=== PATIENT | female | born 1935 | race American Indian/Alaskan Native ===

== ENCOUNTER 2016-09-24 00:19 | Observation (INO) | payer MEDICARE, OTHER ==
[2016-09-24 00:19] VITALS: BMI 21.6
--- NOTE | 2016-09-24 00:31 | C.PDOC ---
History Of Present Illness 81 year old female with a history of COPD, presents to the ED with complaints of progressively worsening SOB since yesterday. Patient is speaking in 4-5 words sentences and denies fever, chills, chest pain, palpitations, or any other complaints at this time. Time Seen by Provider: 09/24/16 00:31 Chief Complaint (Nursing): Shortness Of Breath History Per: Patient History/Exam Limitations: no limitations Onset/Duration Of Symptoms: Days Current Symptoms Are (Timing): Still Present Severity: Mild Associated Symptoms: denies: Fever, Chills, Chest Pain, Productive Cough Past Medical History Reviewed: Historical Data, Nursing Documentation, Vital Signs Vital Signs: Last Vital Signs Temp 97.5 F L 09/24/16 00:25 Pulse 111 H 09/24/16 00:25 Resp 24 09/24/16 00:54 BP 143/87 09/24/16 00:25 Pulse Ox 92 L 09/24/16 00:58 - Medical History PMH: COPD - [facility] Procedures ANGIOPLASTY OF OTHER NON-CORONARY VESSEL(S) (01/22/15) INSEJ [id number] PERIPHERAL NON-CORONARY VES STENT(S) (01/22/15) INSERTION OF TWO VASCULAR STENTS (01/22/15) PROCEDURE ON TWO VESSELS (01/22/15) RADICAL EXCIS SKIN LES (10/29/12) Family History: States: Unknown Family Hx - Social History Hx Alcohol Use: Yes (RARE) Hx Substance Use: No - Immunization History Hx Tetanus Toxoid Vaccination: Yes Hx Influenza Vaccination: Yes Hx Pneumococcal Vaccination: Yes Review Of Systems Constitutional: Negative for: Fever, Chills, Sweats Cardiovascular: Negative for: Chest Pain, Palpitations Respiratory: Positive for: Shortness of Breath. Negative for: Cough Gastrointestinal: Negative for: Nausea, Vomiting, Diarrhea Genitourinary: Negative for: Dysuria, Frequency Musculoskeletal: Negative for: Neck Pain, Back Pain Skin: Negative for: Rash, Lesions Neurological: Negative for: Weakness, Numbness Psych: Positive for: Anxiety Physical Exam - Physical Exam Appears: Non-toxic Skin: Warm, Dry Head: Atraumatic, Normacephalic Eye(s): bilateral: Normal Inspection Oral Mucosa: Moist Neck: Supple Chest: Symmetrical, No Deformity Cardiovascular: Rhythm Regular Respiratory: Accessory Muscle Use, No Rales, Rhonchi (+Scattered rhonchi), Wheezing Gastrointestinal/Abdominal: Soft, No Tenderness, No Distention Back: Normal Inspection Extremity: Normal ROM Extremity: Bilateral: Atraumatic, Normal Color And Temperature Neurological/Psych: Oriented x3, Normal Speech, Normal Cognition Gait: Unable To Assess ED Course And Treatment - Laboratory Results Result Diagrams: 09/24/16 00:53 09/24/16 00:53 ECG: Interpreted By Me, Viewed By Me ECG Rhythm: Sinus Rhythm (104), R BBB, Nonspecific Changes (lahb) O2 Sat by Pulse Oximetry: 92 Pulse Ox Interpretation: Normal - Radiology CXR: Interpreted by Me, Viewed By Me Progress Note: CXR, EKG, Blood work, and Urinalysis ordered and reviewed. Patient treated with DuoNeb and Solu-Medrol. Disposition Discussed With : Lex Patel Comment: accepted the pt on his service and took over the care at 2:07 AM Doctor Will See Patient In The: Hospital Counseled Patient/Family Regarding: Studies Performed, Diagnosis - Disposition Disposition: HOSPITALIZED Disposition Time: 00:31 Condition: FAIR - POA Present On Arrival: None - Clinical Impression Clinical Impression: Dyspnea, COPD exacerbation - Scribe Statement The provider has reviewed the documentation as recorded by the Scribe Carmine Duvall. Provider Attestation: All medical record entries made by the Scribe were at my direction and personally dictated by me. I have reviewed the chart and agree that the record accurately reflects my personal performance of the history, physical exam, medical decision making, and the department course for this patient. I have also personally directed, reviewed, and agree with the discharge instructions and disposition.
[2016-09-24 00:58] LABS: DRAW SITE RB
[2016-09-24 01:00] LABS: INR 1.2
[2016-09-24 01:01] LABS: BASO # 0.1 K/uL (0.0-0.2); BASO % 1.2 % (0.0-2.0); EOS # 0.5 K/uL (0.0-0.7); EOS % 7.1 % (0.0-4.0); HEMATOCRIT 32.5 % (34.0-47.0); LYMPH # 0.5 K/uL (1.0-4.3); LYMPH % 8.5 % (20.0-40.0); MEAN CORPUSCULAR HEMOGLOBIN 27.7 pg (27.0-31.0); MEAN CORPUSCULAR HGB CONC 32.6 g/dL (33.0-37.0); MEAN PLATELET VOLUME 7.6 fL (7.2-11.7); MONO # 0.9 K/uL (0.0-0.8); MONO % 14.5 % (0.0-10.0); PLATELET COUNT 468 K/uL (130-400); WHITE BLOOD COUNT 6.3 K/uL (4.8-10.8)
[2016-09-24 01:14] LABS: ALB/GLOB RATIO 1.3 (1.0-2.1); ALKALINE PHOSPHATASE 71 U/L (38-126); ALT/SGPT 19 U/L (9-52); AST/SGOT 24 U/L (14-36); BILIRUBIN,TOTAL 0.7 mg/dL (0.2-1.3); BLOOD UREA NITROGEN 11 mg/dL (7-17); CALCIUM 8.8 mg/dl (8.6-10.4); CARBON DIOXIDE 26 mmol/L (22-30); CHLORIDE 101 mmol/L (98-107); GFR AFRICAN-AMERICAN > 60; GLUCOSE,RANDOM 82 mg/dL (65-105); POTASSIUM 3.5 mmol/L (3.6-5.2); SODIUM 137 mmol/L (132-148); TOTAL PROTEIN 7.1 g/dL (6.3-8.3)
[2016-09-24 01:21] LABS: URINE BILIRUBIN NEGATIVE (NEGATIVE); URINE BLOOD NEGATIVE (NEGATIVE); URINE COLOR YELLOW (YELLOW); URINE GLUCOSE (UA) Normal (Normal); URINE KETONE NEGATIVE (NEGATIVE)
[2016-09-24 01:22] LABS: RBC URINE 1 /hpf (0-3); URINE LEUKOCYTE ESTERASE TRACE Leu/uL (Negative); URINE PROTEIN NEGATIVE (NEGATIVE); URINE UROBILINOGEN Normal mg/dL (0.2-1.0); WBC URINE 11 /hpf (0-5)
[2016-09-24] MEDS: Albuterol-Ipratrop 3 mg / 0.5 (3 ml) UD IH SCH ×3 (01:30→02:00)
[2016-09-24 01:31] LABS: BASOPHIL 1 % (0-2); EOSINOPHIL 5 % (0-4); NEUTROPHIL 71 % (50-75); TOTAL CELLS COUNTED 100
[2016-09-24] MEDS ORDERED: Albuterol-Ipratrop 3 mg / 0.5 (3 ml) UD ONE ×3 (01:31)
[2016-09-24] MEDS ORDERED: Potassium Chloride 20 mEq ER Tab PO ONE ×3 (02:16→10:00)
[2016-09-24 02:36] VITALS: RESP 20
[2016-09-24] MEDS ORDERED: ATROPINE SULFATE PO PRN (02:44)
[2016-09-24] MEDS ORDERED: DIPHENOXYLATE HCL PO PRN (02:44)
[2016-09-24] MEDS ORDERED: [UNRECOGNIZED DRUG - OTHER] PO PRN (02:44)
[2016-09-24] MEDS ORDERED: Home Med 1 UNIT (Meloxicam [Meloxicam] 7.5 MG) PO PRN (02:44)
[2016-09-24] MEDS ORDERED: Influenza Virus Vaccine 45 mcg/0.5 ml Syr IM ONE (04:19)
[2016-09-24] MEDS ORDERED: Pneumococcal 23-Valent Vaccine IM ONE (04:19)
[2016-09-24] MEDS: Albuterol-Ipratrop 3 mg / 0.5 (3 ml) UD INH SCH ×3 (08:33→16:12)
[2016-09-24 09:10] VITALS: BP 107/68; PULSE 96; TEMP 98.1; O2SAT 98
--- NOTE | 2016-09-24 09:57 | RAD ---
PROCEDURE: CHEST RADIOGRAPH, 1 VIEW HISTORY: SOB COMPARISON: 09/25/2015. FINDINGS: LUNGS: Chronic interstitial lung markings. No focal infiltrate or effusion. Small nodular density seen at the lateral aspect of the left midlung zone may represent nodule and or granuloma. This was noted on the prior study. PLEURA: No pneumothorax or pleural fluid seen. CARDIOVASCULAR: Tortuous ectatic aorta. OSSEOUS STRUCTURES: No significant abnormalities. VISUALIZED UPPER ABDOMEN: Normal. OTHER FINDINGS: None. IMPRESSION: Chronic interstitial lung markings. No focal infiltrate or effusion. Small nodular density seen at the lateral aspect of the left midlung zone may represent nodule and or granuloma. This was noted on the prior study.
[2016-09-24] MEDS ORDERED: Cilostazol 100 mg Tab UD PO SCH (10:00)
[2016-09-24] MEDS ORDERED: Enoxaparin 40 mg Syringe SC SCH (10:00)
[2016-09-24] MEDS ORDERED: guaiFENesin 600 mg ER Tab PO SCH (10:00)
[2016-09-24] MEDS ORDERED: Levothyroxine 75 MCG TAB PO SCH (10:00)
[2016-09-24] MEDS ORDERED: MethylPREDNISolone 40 mg Vial IVP SCH (10:00)
[2016-09-24] MEDS ORDERED: MIRTAZAPINE 15 MG PO SCH (10:00)
[2016-09-24] MEDS ORDERED: Atropine-Diphenoxylate 0.025-2.5 mg Tab PO PRN (12:13)
[2016-09-24] MEDS ORDERED: Naproxen 275 mg Tab PO PRN (13:50)
[2016-09-25] MEDS ORDERED: Levothyroxine 75 MCG TAB PO SCH (06:30)
--- NOTE | 2016-09-25 12:58 | CP.PCM.HP ---
History of Present Illness - History of Present Illness History of Present Illness: Priscilla complain: acute cough & shortness of breath HPI: 81 year old AA female well known to me with a history of COPD,HTN, Hypothyroidism, gastritis presents to the ED with complaints of progressively worsening SOB associated with cough, congestion and wheezing thick sputum since yesterday. Patient is speaking in 4-5 words sentences and denies fever, chills, chest pain, palpitations, or any other complaints at this time.pt was given treatment including nebulizer, oxygen, and she is improving Present on Admission - Present on Admission Any Indicators Present on Admission: No Review of Systems - Review of Systems Systems not reviewed;Unavailable: Acuity of Condition - Constitutional Constitutional: Fatigue, Lethargy. absent: As Per HPI, Anorexia, Chills, Daytime Sleepiness, Excessive Sweating, Fever, Frequent Falls, Headache, Increased Appetite, Malaise, Night Sweats, Snoring, Sleep Apnea, Weight Gain, Weight Loss, Weakness, Other - EENT Eyes: absent: As Per HPI, Blind Spots, Blurred Vision, Change in Vision, Decreased Night Vision, Diplopia, Discharge, Dry Eye, Exophthalmos, Floaters, Irritation, Itchy Eyes, Loss of Peripheral Vision, Pain, Photophobia, Requires Corrective Lenses, Sees Flashes, Spots in Vision, Tunnel Vision, Other Visual Disturbances, Loss of Vision, Other Nose/Mouth/Throat: Nasal Congestion. absent: As Per HPI, Epistaxis, Nasal Discharge, Nasal Obstruction, Nasal Trauma, Nose Pain, Post Nasal Drip, Sinus Pain, Sinus Pressure, Bleeding Gums, Change in Voice, Dental Pain, Dry Mouth, Dysphagia, Halitosis, Hoarsness, Lip Swelling, Mouth Lesions, Mouth Pain, Odynophagia, Sore Throat, Throat Swelling, Tongue Swelling, Facial Pain, Neck Pain, Neck Mass, Other - Cardiovascular Cardiovascular: absent: As Per HPI, Acrocyanosis, Chest Pain, Chest Pain at Rest , Chest Pain with Activity, Claudication, Diaphoresis, Dyspnea, Dyspnea on Exertion, Edema, Irregular Heart Rhythm, Pain Radiating to Arm/Neck/Jaw, Leg Edema, Leg Ulcers, Lightheadedness, Orthopnea, Palpitations, Paroxysmal Nocturnal Dyspnea, Pedal Edema, Radiating Pain, Rapid Heart Rate, Slow Heart Rate, Syncope, Other - Respiratory Respiratory: Cough, Dyspnea, Dyspnea on Exertion, Chest Congestion, Excessive Mucous Production, Change in Mucous Color, Pain with Coughing - Gastrointestinal Gastrointestinal: absent: As Per HPI, Abdominal Pain, Belching, Bloating, Change in Bowel Habits, Change in Stool Character, Coffee Ground Emesis, Constipation, Cramping, Diarrhea, Dyspepsia, Dysphagia, Early Satiety, Excessive Flatus, Fecal Incontinence, Heartburn, Hematemesis, Hematochezia, Loose Stools, Melena, Nausea, Odynophagia, Temesmus, Vomiting, Other Past Patient History - Past Medical History & Family History Past Medical History?: Yes - Past Social History Smoking Status: Former Smoker - CARDIAC Hx Cardiac Disorders: No Hx Congestive Heart Failure: Yes Hx Hypertension: Yes Hx Pacemaker: No - PULMONARY Hx Respiratory Disorders: Yes Hx Chronic Obstructive Pulmonary Disease (COPD): Yes Hx Emphysema: Yes - NEUROLOGICAL Hx Neurological Disorder: No Hx Paralysis: No - HEENT Hx HEENT Problems: No - RENAL Hx Chronic Kidney Disease: No - ENDOCRINE/METABOLIC Hx Endocrine Disorders: Yes Hx Hypothyroidism: Yes - HEMATOLOGICAL/ONCOLOGICAL Hx Blood Disorders: No Hx Blood Transfusions: No - INTEGUMENTARY Hx Dermatological Problems: No - MUSCULOSKELETAL/RHEUMATOLOGICAL Hx Falls: No - GASTROINTESTINAL Hx Gastrointestinal Disorders: No - GENITOURINARY/GYNECOLOGICAL Hx Genitourinary Disorders: No - PSYCHIATRIC Hx Substance Use: No - SURGICAL HISTORY Hx Surgeries: No - ANESTHESIA Hx Anesthesia: No Hx Anesthesia Reactions: No Hx Malignant Hyperthermia: No Has any member of the family had a problem w/ anesthesia?: No Meds Home Medications: Home Medication List Medication Instructions Recorded Confirmed Type predniSONE [Prednisone] 30 mg PO DAILY #18 tab 09/24/16 Rx predniSONE [predniSONE Tab] 5 mg PO DAILY #3 tab 09/24/16 Rx Allergies/Adverse Reactions: Allergies Allergy/AdvReac Type Severity Reaction Status Date / Time No Known Allergies Allergy Verified 09/24/16 00:29 Physical Exam - Constitutional Appears: Well - Head Exam Head Exam: ATRAUMATIC, NORMAL INSPECTION, NORMOCEPHALIC - Eye Exam Eye Exam: EOMI, Normal appearance, PERRL Pupil Exam: NORMAL ACCOMODATION, PERRL - Respiratory Exam Respiratory Exam: Decreased Breath Sounds, Rhonchi, Wheezes - Cardiovascular Exam Cardiovascular Exam: REGULAR RHYTHM - GI/Abdominal Exam GI & Abdominal Exam: Normal Bowel Sounds, Soft. absent: Tenderness Results - Vital Signs Recent Vital Signs: Last Vital Signs Temp 98.1 F 09/24/16 08:36 Pulse 96 H 09/24/16 08:36 Resp 20 09/24/16 08:36 BP 107/68 09/24/16 08:36 Pulse Ox 98 09/24/16 08:36 - Labs Result Diagrams: 09/24/16 00:53 09/24/16 00:53 Assessment & Plan (1) Dyspnea Status: Acute (2) COPD exacerbation Status: Acute Comment: Pt improved in ER and she is for discharge with out pateint follow up on tapering doses of prednisone
--- NOTE | 2016-09-25 13:02 | CP.PCM.DIS ---
Provider - Provider Date of Admission: 09/24/16 02:06 Attending physician: Lex Patel MD Time Spent in preparation of Discharge (in minutes): 30 Diagnosis - Discharge Diagnosis (1) Dyspnea Status: Acute (2) COPD exacerbation Status: Acute Hospital Course - Lab Results Lab Results: Most Recent Lab Values WBC 6.3 K/uL (4.8-10.8) 09/24/16 00:53 RBC 3.82 Mil/uL (3.80-5.20) 09/24/16 00:53 Hgb 10.6 g/dL (11.0-16.0) L D 09/24/16 00:53 Hct 32.5 % (34.0-47.0) L 09/24/16 00:53 MCV 85.0 fL (81.0-99.0) D 09/24/16 00:53 MCH 27.7 pg (27.0-31.0) 09/24/16 00:53 MCHC 32.6 g/dL (33.0-37.0) L 09/24/16 00:53 RDW 17.0 % (11.5-14.5) H 09/24/16 00:53 Plt Count 468 K/uL (130-400) H D 09/24/16 00:53 MPV 7.6 fL (7.2-11.7) 09/24/16 00:53 Neut % (Auto) 68.7 % (50.0-75.0) 09/24/16 00:53 Lymph % (Auto) 8.5 % (20.0-40.0) L 09/24/16 00:53 [place] % (Auto) 14.5 % (0.0-10.0) H 09/24/16 00:53 Eos % (Auto) 7.1 % (0.0-4.0) H 09/24/16 00:53 Baso % (Auto) 1.2 % (0.0-2.0) 09/24/16 00:53 Neut # 4.3 K/uL (1.8-7.0) 09/24/16 00:53 Lymph # 0.5 K/uL (1.0-4.3) L 09/24/16 00:53 [place] # 0.9 K/uL (0.0-0.8) H 09/24/16 00:53 Eos # 0.5 K/uL (0.0-0.7) 09/24/16 00:53 Baso # 0.1 K/uL (0.0-0.2) 09/24/16 00:53 Neutrophils % (Manual) 71 % (50-75) 09/24/16 00:53 Lymphocytes % (Manual) 14 % (20-40) L 09/24/16 00:53 Monocytes % (Manual) 9 % (0-10) 09/24/16 00:53 Eosinophils % (Manual) 5 % (0-4) H 09/24/16 00:53 Basophils % (Manual) 1 % (0-2) 09/24/16 00:53 Platelet Estimate Slightly increased (NORMAL) H 09/24/16 00:53 PT 14.0 SECONDS (9.7-12.2) H 09/24/16 00:33 INR 1.2 09/24/16 00:33 APTT 40 SECONDS (21-34) H 09/24/16 00:33 Puncture Site Rb 09/24/16 00:50 pCO2 32 mm/Hg (35-45) L 09/24/16 00:50 pO2 89 mm/Hg (80-100) 09/24/16 00:50 HCO3 27.3 mmol/L (21-28) 09/24/16 00:50 ABG pH 7.51 (7.35-7.45) H 09/24/16 00:50 ABG Total CO2 26.5 mmol/L (22-28) 09/24/16 00:50 ABG O2 Saturation 99.4 % (95-98) H 09/24/16 00:50 ABG Base Excess 3.0 mmol/L (-2.0-3.0) 09/24/16 00:50 Jason Test Na 09/24/16 00:50 ABG Potassium 3.3 mmol/L (3.6-5.2) L 09/24/16 00:50 A-a O2 Difference 21.0 mm/Hg 09/24/16 00:50 Respiratory Index 0.2 09/24/16 00:50 Sodium 138.0 mmol/l (132-148) 09/24/16 00:50 Chloride 110.0 mmol/L (98-107) H 09/24/16 00:50 Glucose 87 mg/dl (65-105) 09/24/16 00:50 Lactate 0.7 mmol/L (0.7-2.1) 09/24/16 00:50 FiO2 21.0 % 09/24/16 00:50 Sodium 137 mmol/L (132-148) 09/24/16 00:53 Potassium 3.5 mmol/L (3.6-5.2) L 09/24/16 00:53 Chloride 101 mmol/L (98-107) 09/24/16 00:53 Carbon Dioxide 26 mmol/L (22-30) 09/24/16 00:53 Anion Gap 14 (10-20) 09/24/16 00:53 BUN 11 mg/dL (7-17) 09/24/16 00:53 Creatinine 0.7 MG/DL (0.7-1.2) 09/24/16 00:53 Est GFR ( Amer) > 60 09/24/16 00:53 Est GFR (Non-Af Amer) > 60 09/24/16 00:53 Random Glucose 82 mg/dL (65-105) 09/24/16 00:53 Calcium 8.8 mg/dl (8.6-10.4) 09/24/16 00:53 Total Bilirubin 0.7 mg/dL (0.2-1.3) 09/24/16 00:53 AST 24 U/L (14-36) 09/24/16 00:53 ALT 19 U/L (9-52) 09/24/16 00:53 Alkaline Phosphatase 71 U/L (38-126) 09/24/16 00:53 Troponin I 0.0140 ng/mL (0.00-0.120) 09/24/16 00:53 NT-Pro-B Natriuret Pep 137 pg/mL (0-900) 09/24/16 00:53 Total Protein 7.1 g/dL (6.3-8.3) 09/24/16 00:53 Albumin 4.0 g/dL (3.5-5.0) 09/24/16 00:53 Globulin 3.1 gm/dL (2.2-3.9) 09/24/16 00:53 Albumin/Globulin Ratio 1.3 (1.0-2.1) 09/24/16 00:53 Arterial Blood Potassium 3.3 mmol/L (3.6-5.2) L 09/24/16 00:50 Urine Color Yellow (YELLOW) 09/24/16 00:53 Urine Clarity Clear (Clear) 09/24/16 00:53 Urine pH 6.0 (5.0-8.0) 09/24/16 00:53 Ur Specific [place] 1.012 (1.003-1.030) 09/24/16 00:53 Urine Protein Negative mg/dL (NEGATIVE) 09/24/16 00:53 Urine Glucose (UA) Normal mg/dL (Normal) 09/24/16 00:53 Urine Ketones Negative mg/dL (NEGATIVE) 09/24/16 00:53 Urine Blood Negative (NEGATIVE) 09/24/16 00:53 Urine Nitrate Negative (NEGATIVE) 09/24/16 00:53 Urine Bilirubin Negative (NEGATIVE) 09/24/16 00:53 Urine Urobilinogen Normal mg/dL (0.2-1.0) 09/24/16 00:53 Ur Leukocyte Esterase Trace Ashley/uL (Negative) 09/24/16 00:53 Urine WBC (Auto) 11 /hpf (0-5) H 09/24/16 00:53 Urine RBC (Auto) 1 /hpf (0-3) 09/24/16 00:53 Ur Squamous Epith Cells 4 /hpf (0-5) 09/24/16 00:53 - Hospital Course Hospital Course: Pt was admitted with c/o sob, and cough due to COPD exacerbation, pt was treated and stablized and was discharged Discharge Exam - Head Exam Head Exam: ATRAUMATIC, NORMAL INSPECTION, NORMOCEPHALIC - Eye Exam Eye Exam: EOMI, Normal appearance, PERRL Pupil Exam: NORMAL ACCOMODATION, PERRL - ENT Exam ENT Exam: Mucous Membranes Moist - Respiratory Exam Respiratory Exam: Decreased Breath Sounds, Wheezes - Cardiovascular Exam Cardiovascular Exam: REGULAR RHYTHM, +S1, +S2 - GI/Abdominal Exam GI & Abdominal Exam: Normal Bowel Sounds Discharge Plan - Discharge Medications Prescriptions: predniSONE [Prednisone] 30 mg PO DAILY #18 tab predniSONE [predniSONE Tab] 5 mg PO DAILY #3 tab - Follow Up Plan Condition: FAIR Disposition: HOME/ ROUTINE Instructions: Prednisone (By mouth), COPD (Chronic Obstructive Pulmonary Disease) (GEN), Dyspnea (GEN) Additional Instructions: Please f/u with Dr. Patel office monday continue medication as per Med. Rec.
--- NOTE | 2016-09-26 11:42 | CARD ---
APPROVED REPORT EKG Measurement Heart [id number] <Conclusion> Sinus tachycardia with premature atrial complexes Incomplete right bundle branch block Left anterior fascicular block Abnormal ECG
== END 2016-09-24 17:00 | disposition home or self-care (01) ==
LOC: C.ER 00:19 → C.9E 02:06 → C.3T 02:32
PROVIDERS: ADMIT Internal Medicine; ATTEND Internal Medicine
DX: J44.1 Chronic obstructive pulmonary disease with (acute) exacerbation (principal); E03.9 Hypothyroidism, unspecified; K29.70 Gastritis, unspecified, without bleeding; I11.0 Hypertensive heart disease with heart failure; I50.9 Heart failure, unspecified
CPT/HCPCS: 71010; 80053; 81001; 82803; 83880; 84484; 85025; 85610; 85730; 87040; 94640; 96374; 99285; G0378; J1650; J2920; J2930

== ENCOUNTER 2017-10-09 15:11 | Inpatient (IN) | payer MEDICARE, OTHER ==
[2017-10-09 15:11] VITALS: BMI 21.6
[2017-10-09] MEDS ORDERED: Azithromycin 500 MG in Sodium Chloride 0.9% 250 ML IVPB STA (16:00)
[2017-10-09] MEDS ORDERED: Albuterol-Ipratrop 3 mg / 0.5 (3 ml) UD INH STA ×2 (16:00→16:22)
[2017-10-09] MEDS ORDERED: Albuterol-Ipratrop 3 mg / 0.5 (3 ml) UD ONE ×2 (16:05→16:45)
[2017-10-09 16:13] LABS: BASO # 0.1 K/uL (0.0-0.2); BASO % 0.9 % (0.0-2.0); EOS # 0.2 K/uL (0.0-0.7); HEMOGLOBIN 10.6 g/dL (11.0-16.0); LYMPH # 0.7 K/uL (1.0-4.3); LYMPH % 12.2 % (20.0-40.0); MEAN CORPUSCULAR HEMOGLOBIN 31.8 pg (27.0-31.0); MEAN CORPUSCULAR HGB CONC 33.9 g/dL (33.0-37.0); MEAN PLATELET VOLUME 7.8 fL (7.2-11.7); MONO # 0.6 K/uL (0.0-0.8); MONO % 10.9 % (0.0-10.0); NEUT # 4.1 K/uL (1.8-7.0); RBC 3.33 Mil/uL (3.80-5.20); WHITE BLOOD COUNT 5.6 K/uL (4.8-10.8)
[2017-10-09] MEDS ORDERED: cefTRIAXone IV 1 gm in Dextros 50 ML IVPB ONE (16:14)
--- NOTE | 2017-10-09 16:16 | C.PDOC ---
History Of Present Illness 82 y/o female, w/PMhx of COPD and emphysema, presents to the ER complaining of SOB, cough, and chest tightness which became worse today. Patient states that she used nebulizer treatment and Home O2 with no relief. She notes that she uses 3 liters of Home O2. Patient denies having other complaints at this time. Time Seen by Provider: 10/09/17 15:45 Chief Complaint (Nursing): Shortness Of Breath History Per: Patient History/Exam Limitations: no limitations Onset/Duration Of Symptoms: Days Current Symptoms Are (Timing): Still Present Severity: Moderate Associated Symptoms: denies: Fever, Chills Past Medical History Reviewed: Historical Data, Nursing Documentation, Vital Signs Vital Signs: Last Vital Signs Temp 98.2 F 10/09/17 15:19 Pulse 84 10/09/17 17:45 Resp 18 10/09/17 17:45 BP 140/78 10/09/17 17:45 Pulse Ox 100 10/09/17 17:50 - Medical History PMH: Anxiety, Arthritis, CHF, COPD, Emphysema, HTN, Hypothyroidism Denies: Chronic Kidney Disease Surgical History: Denies: Pacemaker - [facility] Procedures ANGIOPLASTY OF OTHER NON-CORONARY VESSEL(S) (01/22/15) INSEJ [id number] PERIPHERAL NON-CORONARY VES STENT(S) (01/22/15) INSERTION OF TWO VASCULAR STENTS (01/22/15) PROCEDURE ON TWO VESSELS (01/22/15) RADICAL EXCIS SKIN LES (10/29/12) Family History: States: No Known Family Hx - Social History Hx Alcohol Use: Yes (rare) Hx Substance Use: No - Immunization History Hx Tetanus Toxoid Vaccination: Yes Hx Influenza Vaccination: Yes (04/2017) Hx Pneumococcal Vaccination: Yes Review Of Systems Except As Marked, All Systems Reviewed And Found Negative. Constitutional: Negative for: Fever, Chills Respiratory: Positive for: Cough, Shortness of Breath Physical Exam - Physical Exam Appears: Non-toxic, No Acute Distress Skin: Normal Color, Warm Head: Atraumatic, Normacephalic Eye(s): bilateral: Normal Inspection Nose: Normal Oral Mucosa: Moist Throat: Normal, No Erythema, No Exudate Neck: Supple Chest: Symmetrical Cardiovascular: Rhythm Regular Respiratory: Decreased Breath Sounds, No Rales, No Rhonchi, No Wheezing Gastrointestinal/Abdominal: Normal Exam, Soft, No Tenderness Neurological/Psych: Oriented x3, Normal Speech ED Course And Treatment - Laboratory Results Result Diagrams: 10/09/17 16:08 10/09/17 16:08 ECG: Interpreted By Me, Viewed By Me ECG Rhythm: Sinus Rhythm Interpretation Of ECG: NSR with left axis deviation, occasional PVC's, and no ST /T wave abnormalities Rate From EC O2 Sat by Pulse Oximetry: 100 (RA) Pulse Ox Interpretation: Normal - Other Rad CXR X-Ray: Viewed By Me, Read By Radiologist Interpretation: PROCEDURE: CHEST RADIOGRAPH, 1 VIEW. HISTORY: SOB. COMPARISON: 12/06/2016. FINDINGS: LUNGS: The lungs are hyperinflated and there is peribronchial thickening with chronic changes in both lungs. No focal consolidation. PLEURA: No pneumothorax or pleural fluid seen. CARDIOVASCULAR : Normal. OSSEOUS STRUCTURES: No significant abnormalities. VISUALIZED UPPER ABDOMEN: Normal. OTHER FINDINGS: None. IMPRESSION: No active pulmonary disease. COPD. Medical Decision Making Medical Decision Making: Assessment: COPD Exacerbation Plan: --Labs --CXR --Albuterol --Protonix IV --Rocephin IV --Zofran IV Updates: Case discussed with Dr. Patel. Patient has been admitted for COPD excaberation to Med Surg under the service of Dr. Patel. Disposition Discussed With : Lex Patel Counseled Patient/Family Regarding: Studies Performed, Diagnosis - Disposition Disposition: HOSPITALIZED Disposition Time: 17:09 Condition: FAIR - Clinical Impression Clinical Impression: Chr obstructive pulmonary disease w/ acute lower respiratory infxn - Scribe Statement The provider has reviewed the documentation as recorded by the Demarcus Gonzalez Provider Attestation: All medical record entries made by the Shaneibjose were at my direction and personally dictated by me. I have reviewed the chart and agree that the record accurately reflects my personal performance of the history, physical exam, medical decision making, and the department course for this patient. I have also personally directed, reviewed, and agree with the discharge instructions and disposition.
[2017-10-09 16:25] LABS: ALB/GLOB RATIO 1.1 (1.0-2.1); ALBUMIN 3.1 g/dL (3.5-5.0); ALT/SGPT 15 U/L (9-52); AST/SGOT 20 U/L (14-36); BLOOD UREA NITROGEN 9 mg/dL (7-17); CALCIUM 8.6 mg/dl (8.6-10.4); GFR AFRICAN-AMERICAN > 60; GFR NON-AFRICAN AMERICAN > 60
[2017-10-09 16:35] LABS: B-TYPE NATRIURETIC PEPTIDE 122 pg/mL (0-900)
--- NOTE | 2017-10-09 16:46 | RAD ---
PROCEDURE: CHEST RADIOGRAPH, 1 VIEW HISTORY: SOB COMPARISON: 12/06/2016. FINDINGS: LUNGS: The lungs are hyperinflated and there is peribronchial thickening with chronic changes in both lungs. No focal consolidation. PLEURA: No pneumothorax or pleural fluid seen. CARDIOVASCULAR: Normal. OSSEOUS STRUCTURES: No significant abnormalities. VISUALIZED UPPER ABDOMEN: Normal. OTHER FINDINGS: None. IMPRESSION: No active pulmonary disease. COPD.
[2017-10-09] MEDS ORDERED: Azithromycin 500mg/250ML NS 500 MG/250 ML BAG IVPB ONE (17:29)
[2017-10-09 19:08] LABS: URINE BACTERIA RARE (<OCC); URINE BILIRUBIN NEGATIVE (NEGATIVE); URINE BLOOD 1+ (NEGATIVE); URINE CLARITY Clear (Clear); URINE COLOR Straw (YELLOW); URINE GLUCOSE (UA) NORMAL (Normal); URINE LEUKOCYTE ESTERASE NEG Leu/uL (Negative); URINE PROTEIN NEGATIVE (NEGATIVE); URINE UROBILINOGEN NORMAL mg/dL (0.2-1.0)
[2017-10-09 19:14] LABS: SQUAMOUS EPITHIAL 1 /hpf (0-5)
[2017-10-09] MEDS ORDERED: Potassium Chloride 20 mEq ER Tab PO ONE (20:18)
[2017-10-09] MEDS: Budesonide 0.25 mg/2 ml Inhal Susp UD INH SCH (22:54)
[2017-10-09] MEDS: Fluticasone-Salmeterol 500-50mcg Diskus INH SCH (22:55)
--- NOTE | 2017-10-09 23:08 | CP.PCM.HP ---
History of Present Illness - History of Present Illness History of Present Illness: CC: shortness of breath x 1 week History Of Present Illness 82 y/o female, w/PMhx of COPD , PAD, HTN, Hyperlipidemia and emphysema, presents to the ER complaining of SOB, cough, and chest tightness since 1 week which became worse today. Patient states that she used nebulizer treatment and Home O2 with no relief. She notes that she uses 3 liters of Home O2. Patient denies having other complaints at this time.Pt was seen by me out pateint and was given prednisolone but she didn't improved so she was admitted to hospital Present on Admission - Present on Admission Any Indicators Present on Admission: Yes Review of Systems - Review of Systems Systems not reviewed;Unavailable: Acuity of Condition, Respiratory Distress - Constitutional Constitutional: Fatigue, Lethargy, Malaise, Weakness - EENT Eyes: absent: As Per HPI, Blind Spots, Blurred Vision, Change in Vision, Decreased Night Vision, Diplopia, Discharge, Dry Eye, Exophthalmos, Floaters, Irritation, Itchy Eyes, Loss of Peripheral Vision, Pain, Photophobia, Requires Corrective Lenses, Sees Flashes, Spots in Vision, Tunnel Vision, Other Visual Disturbances, Loss of Vision, Other Nose/Mouth/Throat: Nasal Congestion, Nasal Discharge, Nasal Obstruction - Breasts Breasts: absent: As Per HPI, Change in Shape, Mass, Pain, Nipple Discharge, Nipple Inversion, Skin Changes, Swelling, Other - Cardiovascular Cardiovascular: Dyspnea. absent: As Per HPI, Acrocyanosis, Chest Pain, Chest Pain at Rest, Chest Pain with Activity, Claudication, Diaphoresis, Dyspnea on Exertion, Edema, Irregular Heart Rhythm, Pain Radiating to Arm/Neck/Jaw, Leg Edema, Leg Ulcers, Lightheadedness, Orthopnea, Palpitations, Paroxysmal Nocturnal Dyspnea, Pedal Edema, Radiating Pain, Rapid Heart Rate, Slow Heart Rate, Syncope, Other - Respiratory Respiratory: Cough, Dyspnea - Gastrointestinal Gastrointestinal: absent: As Per HPI, Abdominal Pain, Belching, Bloating, Change in Bowel Habits, Change in Stool Character, Coffee Ground Emesis, Constipation, Cramping, Diarrhea, Dyspepsia, Dysphagia, Early Satiety, Excessive Flatus, Fecal Incontinence, Heartburn, Hematemesis, Hematochezia, Loose Stools, Melena, Nausea, Odynophagia, Temesmus, Vomiting, Other - Genitourinary Genitourinary: absent: As Per HPI, Change in Urinary Stream, Difficulty Urinating, Dysuria, Flank Pain, Hematuria, Pyuria, Nocturia, Urinary Incontinence, Urinary Frequency, Urinary Hesitance, Urinary Urgency, Voiding Freq/Small Amts, Freq UTI, Hx Renal/Bladder Calculi, Hx /Renal Surgery, Bladder Distension, Other - Reproductive: Female Reproductive:Female: absent: As Per HPI, Amenorrhea, Amenorrhea/ Control, Currently Menstual, Cycle <21 Days, Cycle >35 Days, Cycle Variable, Menses 1-7 Days, Menses >/= 8 Days, Menses Variable, Cycle > 4 Weeks Between, No Menses for 6 Months, Heavy Menses, Light Menses, Normal Menses, Spotting Between Cycles , S/P Hysterectomy, Menopausal, Post Menopausal, Premenarche, Abnormal Vaginal Bleeding, Dysmenorrhea, Dyspareunia, Genital Lesions, Genital Pruritis, Pelvic Pain, Prolapse Symptoms, Sexual Dysfunction, Vaginal Discharge, Vaginal Dryness , Vaginal Odor, Vaginal Pruritis, Other - Musculoskeletal Musculoskeletal: Abnormal Gait, Muscle Weakness, Myalgias - Integumentary Integumentary: absent: As Per HPI, Acne, Alopecia, Bleeding Lesions, Change in Hair, Change in Nails, Change in Pigmentation, Changing Lesions, Dry Skin, Erythema, Furuncle, Hirsutism, Lesions, New Lesions, Non-Healing Lesions, Photosensitivity, Pruritus, Rash, Skin Pain, Skin Ulcer, Sores, Striae, Swelling , Unusual Bruising, Wounds, Jaundice, Other - Neurological Neurological: Dizziness, Numbness, Tingling, Weakness. absent: As Per HPI, Abnormal Gait, Abnormal Hearing, Abnormal Movements, Abnormal Speech, Behavioral Changes, Burning Sensations, Confusion, Convulsions, Disequilibrium, Focal Weakness, Frequent Falls, Headaches, Lack of Coordination, Loss of Vision , Memory Loss, Paresthesias, Radicular Pain, Restless Legs, Sensory Deficit, Syncope, Tremor, Vertigo, Other Visual Disturbances, Other - Psychiatric Psychiatric: Abnormal Sleep Pattern, Anxiety. absent: As Per HPI, Anhedonia, Auditory Hallucinations, Behavioral Changes, Change in Appetite, Change in Libido, Confusion, Depression, Difficulty Concentrating, Hallucinations, Homicidal Ideation, Hopelessness, Irritability, Memory Loss, Mood Swings, Panic Attacks, Paranoia, Suicidal Ideation, Visual Hallucinations, Tactile Hallucinations, Other Past Patient History - Past Medical History & Family History Past Medical History?: Yes - Past Social History Smoking Status: Former Smoker - CARDIAC Hx Cardiac Disorders: Yes Hx Congestive Heart Failure: Yes Hx Hypertension: Yes Hx Pacemaker: No - PULMONARY Hx Respiratory Disorders: Yes Hx Chronic Obstructive Pulmonary Disease (COPD): Yes Hx Emphysema: Yes - NEUROLOGICAL Hx Neurological Disorder: No Hx Paralysis: No - HEENT Hx HEENT Problems: No - RENAL Hx Chronic Kidney Disease: No - ENDOCRINE/METABOLIC Hx Endocrine Disorders: Yes Hx Hypothyroidism: Yes - HEMATOLOGICAL/ONCOLOGICAL Hx Blood Disorders: No Hx Blood Transfusions: No - INTEGUMENTARY Hx Dermatological Problems: No - MUSCULOSKELETAL/RHEUMATOLOGICAL Hx Falls: No - GASTROINTESTINAL Hx Gastrointestinal Disorders: No - GENITOURINARY/GYNECOLOGICAL Hx Genitourinary Disorders: No - PSYCHIATRIC Hx Substance Use: No - SURGICAL HISTORY Hx Surgeries: Yes Other/Comment: insertion of vascular stents (01/31) - ANESTHESIA Hx Anesthesia: Yes Hx Anesthesia Reactions: No Hx Malignant Hyperthermia: No Meds Allergies/Adverse Reactions: Allergies Allergy/AdvReac Type Severity Reaction Status Date / Time No Known Allergies Allergy Verified 10/09/17 15:24 Physical Exam - Constitutional Appears: No Acute Distress, Agitated - Head Exam Head Exam: ATRAUMATIC, NORMAL INSPECTION, NORMOCEPHALIC - Eye Exam Eye Exam: EOMI, Normal appearance, PERRL Pupil Exam: NORMAL ACCOMODATION, PERRL - Respiratory Exam Respiratory Exam: Decreased Breath Sounds, Rales, Rhonchi - Cardiovascular Exam Cardiovascular Exam: REGULAR RHYTHM - GI/Abdominal Exam GI & Abdominal Exam: Normal Bowel Sounds, Soft. absent: Tenderness - Rectal Exam Rectal Exam: Deferred Results - Vital Signs Recent Vital Signs: Last Vital Signs Temp 98.1 F 10/09/17 19:57 Pulse 87 10/09/17 19:57 Resp 20 10/09/17 19:57 BP 131/78 10/09/17 19:57 Pulse Ox 100 10/09/17 19:57 - Labs Result Diagrams: 10/09/17 16:08 10/09/17 16:08 Labs: Laboratory Results - last 24 hr 10/09/17 10/09/17 10/09/17 16:08 16:08 19:00 WBC 5.6 RBC 3.33 L Hgb 10.6 L Hct 31.3 L MCV 94.0 D MCH 31.8 H MCHC 33.9 RDW 15.0 H Plt Count 264 D MPV 7.8 Neut % (Auto) 73.0 Lymph % (Auto) 12.2 L [place] % (Auto) 10.9 H Eos % (Auto) 3.0 Baso % (Auto) 0.9 Neut # (Auto) 4.1 Lymph # (Auto) 0.7 L [place] # (Auto) 0.6 Eos # (Auto) 0.2 Baso # (Auto) 0.1 Sodium 138 Potassium 3.3 L Chloride 103 Carbon Dioxide 27 Anion Gap 11 BUN 9 Creatinine 0.8 Est GFR ( Amer) > 60 Est GFR (Non-Af Amer) > 60 Random Glucose 74 Calcium 8.6 Total Bilirubin 0.4 AST 20 ALT 15 Alkaline Phosphatase 50 Troponin I < 0.0120 NT-Pro-B Natriuret Pep 122 Total Protein 5.9 L Albumin 3.1 L D Globulin 2.7 Albumin/Globulin Ratio 1.1 Urine Color Straw Urine Clarity Clear Urine pH 6.0 Ur Specific [place] 1.005 Urine Protein Negative Urine Glucose (UA) Normal Urine Ketones Negative Urine Blood 1+ H Urine Nitrate Negative Urine Bilirubin Negative Urine Urobilinogen Normal Ur Leukocyte Esterase Neg Urine WBC (Auto) < 1 Urine RBC (Auto) 5 H Ur Squamous Epith Cells 1 Urine Bacteria Rare Assessment & Plan (1) HTN (hypertension) Status: Acute (2) Anxiety Status: Acute (3) PAD (peripheral artery disease) Status: Acute (4) Chr obstructive pulmonary disease w/ acute lower respiratory infxn Status: Acute (5) COPD exacerbation Assessment and Plan: admit detail orders written please consult orders Status: Acute
[2017-10-10] MEDS ORDERED: Potassium Chloride 20 mEq ER Tab PO ONE (00:15)
[2017-10-10] MEDS: Albuterol-Ipratrop 3 mg / 0.5 (3 ml) UD IH SCH ×5 (00:31→20:48)
[2017-10-10] MEDS: Levothyroxine 100 MCG TAB PO SCH (05:30)
[2017-10-10] MEDS: Fluticasone-Salmeterol 500-50mcg Diskus INH SCH ×2 (07:34→20:48)
[2017-10-10] MEDS: Budesonide 0.25 mg/2 ml Inhal Susp UD INH SCH ×2 (07:34→20:48)
[2017-10-10] MEDS: Enoxaparin 40 mg Syringe SC SCH (09:58)
[2017-10-10] MEDS: Azithromycin 500 MG in Sodium Chloride 0.9% 250 ML IVPB SCH (10:07)
--- NOTE | 2017-10-10 21:47 | CARD ---
APPROVED REPORT EKG Measurement Heart [id number] HI [id number] [id number] <Conclusion> Sinus rhythm with occasional premature ventricular complexes Left axis deviation Abnormal ECG
--- NOTE | 2017-10-10 23:16 | CP.PCM.PN ---
Subjective - Date & Time of Evaluation Date of Evaluation: 10/10/17 Time of Evaluation: 19:35 - Subjective Subjective: pt seen and examined at bedside Objective - Vital Signs/Intake and Output Vital Signs (last 24 hours): Temp Pulse Resp BP Pulse Ox 97.8 F 96 H 20 123/78 97 10/10/17 16:41 10/10/17 16:41 10/10/17 16:41 10/10/17 16:41 10/10/17 16:41 Intake and Output: 10/10/17 10/11/17 18:59 06:59 Intake Total 730 Balance 730 - Medications Medications: Current Medications Albuterol/Ipratropium (Duoneb 3 Mg/0.5 Mg (3 Ml) Ud) 3 ml IH RQ6 [facility] Last Admin: 10/10/17 20:48 Dose: 3 ml Budesonide (Pulmicort Respules) 0.25 mg INH RQ12 [facility] Last Admin: 10/10/17 20:48 Dose: 0.25 mg Enoxaparin Sodium (Lovenox) 40 mg SC DAILY [facility] Last Admin: 10/10/17 09:58 Dose: 40 mg Famotidine (Pepcid) 20 mg PO DAILY [facility] Last Admin: 10/10/17 09:55 Dose: 20 mg Ferrous Sulfate (Feosol) 325 mg PO BID [facility] Last Admin: 10/10/17 17:16 Dose: 325 mg Gabapentin (Neurontin) 100 mg PO TID [facility] Last Admin: 10/10/17 17:16 Dose: 100 mg Azithromycin 500 mg/ Sodium (Chloride) 250 mls @ 250 mls/hr IVPB DAILY [facility] PRN Reason: Protocol Last Admin: 10/10/17 10:07 Dose: 250 mls/hr Levothyroxine Sodium (Synthroid) 100 mcg PO DAILY@0630 [facility] Lorazepam (Ativan) 0.5 mg PO BID [facility] Last Admin: 10/10/17 17:16 Dose: 0.5 mg Losartan Potassium (Cozaar) 50 mg PO DAILY [facility] Last Admin: 10/10/17 09:55 Dose: 50 mg Methylprednisolone (Solu-Medrol) 60 mg IV Q12 [facility] Last Admin: 10/10/17 22:52 Dose: 60 mg Fluticasone/Salmeterol (Advair Diskus 500/50) 1 puff INH RQ12 [facility] Last Admin: 10/10/17 20:48 Dose: 1 puff - Labs Labs: 10/09/17 16:08 10/09/17 16:08 Assessment and Plan (1) HTN (hypertension) Status: Acute (2) Anxiety Status: Acute (3) PAD (peripheral artery disease) Status: Acute (4) Chr obstructive pulmonary disease w/ acute lower respiratory infxn Status: Acute (5) COPD exacerbation Status: Acute
[2017-10-11] MEDS: Albuterol-Ipratrop 3 mg / 0.5 (3 ml) UD IH SCH ×4 (01:53→20:15)
[2017-10-11] MEDS: Levothyroxine 100 MCG TAB PO SCH (05:38)
[2017-10-11] MEDS: Budesonide 0.25 mg/2 ml Inhal Susp UD INH SCH ×2 (07:17→20:15)
[2017-10-11] MEDS: Fluticasone-Salmeterol 500-50mcg Diskus INH SCH ×2 (07:17→20:15)
[2017-10-11] MEDS: Enoxaparin 40 mg Syringe SC SCH (09:18)
[2017-10-11] MEDS: Azithromycin 500 MG in Sodium Chloride 0.9% 250 ML IVPB SCH (10:24)
[2017-10-11] MEDS: MethylPREDNISolone 40 mg Vial IV SCH (17:00)
--- NOTE | 2017-10-11 23:54 | CP.PCM.PN ---
Subjective - Date & Time of Evaluation Date of Evaluation: 10/11/17 Time of Evaluation: 17:00 - Subjective Subjective: pt is seen and evaluated today Objective - Vital Signs/Intake and Output Vital Signs (last 24 hours): Temp Pulse Resp BP Pulse Ox 98.5 F 86 20 131/77 99 10/11/17 23:29 10/11/17 23:29 10/11/17 23:29 10/11/17 23:29 10/11/17 23:29 Intake and Output: 10/11/17 10/12/17 18:59 06:59 Intake Total 930 Balance 930 - Medications Medications: Current Medications Albuterol/Ipratropium (Duoneb 3 Mg/0.5 Mg (3 Ml) Ud) 3 ml IH RQ6 [facility] Last Admin: 10/11/17 20:15 Dose: 3 ml Budesonide (Pulmicort Respules) 0.25 mg INH RQ12 [facility] Last Admin: 10/11/17 20:15 Dose: 0.25 mg Enoxaparin Sodium (Lovenox) 40 mg SC DAILY [facility] Last Admin: 10/11/17 09:18 Dose: Not Given Famotidine (Pepcid) 20 mg PO DAILY [facility] Last Admin: 10/11/17 09:16 Dose: 20 mg Ferrous Sulfate (Feosol) 325 mg PO BID [facility] Last Admin: 10/11/17 17:26 Dose: 325 mg Gabapentin (Neurontin) 100 mg PO TID [facility] Last Admin: 10/11/17 17:26 Dose: 100 mg Azithromycin 500 mg/ Sodium (Chloride) 250 mls @ 250 mls/hr IVPB DAILY [facility] PRN Reason: Protocol Last Admin: 10/11/17 10:24 Dose: 250 mls/hr Levothyroxine Sodium (Synthroid) 100 mcg PO DAILY@0630 [facility] Last Admin: 10/11/17 05:38 Dose: 100 mcg Lorazepam (Ativan) 0.5 mg PO BID [facility] Last Admin: 10/11/17 17:27 Dose: 0.5 mg Losartan Potassium (Cozaar) 50 mg PO DAILY [facility] Last Admin: 10/11/17 09:15 Dose: 50 mg Methylprednisolone (Solu-Medrol) 40 mg IV Q12H [facility] Last Admin: 10/11/17 17:00 Dose: 40 mg Fluticasone/Salmeterol (Advair Diskus 500/50) 1 puff INH RQ12 [facility] Last Admin: 10/11/17 20:15 Dose: 1 puff - Labs Labs: 10/09/17 16:08 10/09/17 16:08 Assessment and Plan (1) HTN (hypertension) Status: Acute (2) Anxiety Status: Acute (3) PAD (peripheral artery disease) Status: Acute (4) Chr obstructive pulmonary disease w/ acute lower respiratory infxn Status: Acute (5) COPD exacerbation Status: Acute
[2017-10-12] MEDS: Albuterol-Ipratrop 3 mg / 0.5 (3 ml) UD IH SCH ×4 (01:47→19:05)
[2017-10-12] MEDS: MethylPREDNISolone 40 mg Vial IV SCH ×2 (04:03→16:00)
[2017-10-12] MEDS: Levothyroxine 100 MCG TAB PO SCH (06:31)
[2017-10-12] MEDS: Fluticasone-Salmeterol 500-50mcg Diskus INH SCH ×2 (07:05→19:05)
[2017-10-12 07:57] LABS: ALB/GLOB RATIO 1.1 (1.0-2.1); ALBUMIN 3.1 g/dL (3.5-5.0); ALT/SGPT 14 U/L (9-52); AST/SGOT 21 U/L (14-36); BLOOD UREA NITROGEN 15 mg/dL (7-17); CALCIUM 8.5 mg/dl (8.6-10.4); GFR AFRICAN-AMERICAN > 60; GFR NON-AFRICAN AMERICAN > 60
[2017-10-12] MEDS: Enoxaparin 40 mg Syringe SC SCH (09:17)
[2017-10-12] MEDS: Azithromycin 500 MG in Sodium Chloride 0.9% 250 ML IVPB SCH (09:23)
[2017-10-12] MEDS: Budesonide 0.25 mg/2 ml Inhal Susp UD INH SCH ×2 (12:55→19:05)
[2017-10-12 14:30] LABS: VENOUS BLOOD GAS BASE EXCESS 1.3 mmol/L (0.0-2.0); VENOUS BLOOD GAS PCO2 36 mmHg (40-60); VENOUS BLOOD GAS PO2 165 mm/Hg (30-55); VENOUS BLOOD PH 7.45 (7.32-7.43)
--- NOTE | 2017-10-12 23:50 | CP.PCM.PN ---
Subjective - Date & Time of Evaluation Date of Evaluation: 10/12/17 Time of Evaluation: 18:00 - Subjective Subjective: Pt seen and examined at bedside Objective - Vital Signs/Intake and Output Vital Signs (last 24 hours): Temp Pulse Resp BP Pulse Ox 98.8 F 84 18 151/72 H 98 10/12/17 23:43 10/12/17 23:43 10/12/17 23:43 10/12/17 23:43 10/12/17 23:43 Intake and Output: 10/12/17 10/13/17 18:59 06:59 Intake Total 1030 300 Balance 1030 300 - Medications Medications: Current Medications Albuterol/Ipratropium (Duoneb 3 Mg/0.5 Mg (3 Ml) Ud) 3 ml IH RQ6 [facility] Last Admin: 10/12/17 19:05 Dose: 3 ml Azithromycin (Zithromax) 500 mg PO DAILY [facility] Budesonide (Pulmicort Respules) 0.25 mg INH RQ12 [facility] Last Admin: 10/12/17 19:05 Dose: 0.25 mg Enoxaparin Sodium (Lovenox) 40 mg SC DAILY [facility] Last Admin: 10/12/17 09:17 Dose: 40 mg Famotidine (Pepcid) 20 mg PO DAILY [facility] Last Admin: 10/12/17 09:19 Dose: 20 mg Ferrous Sulfate (Feosol) 325 mg PO BID [facility] Last Admin: 10/12/17 17:26 Dose: 325 mg Gabapentin (Neurontin) 100 mg PO TID [facility] Last Admin: 10/12/17 17:26 Dose: 100 mg Levothyroxine Sodium (Synthroid) 100 mcg PO DAILY@0630 [facility] Last Admin: 10/12/17 06:31 Dose: 100 mcg Lorazepam (Ativan) 0.5 mg PO BID [facility] Last Admin: 10/12/17 17:26 Dose: 0.5 mg Losartan Potassium (Cozaar) 50 mg PO DAILY [facility] Last Admin: 10/12/17 09:16 Dose: 50 mg Methylprednisolone (Solu-Medrol) 40 mg IV Q12H [facility] Last Admin: 10/12/17 16:00 Dose: 40 mg Fluticasone/Salmeterol (Advair Diskus 500/50) 1 puff INH RQ12 [facility] Last Admin: 10/12/17 19:05 Dose: 1 puff - Labs Labs: 10/09/17 16:08 10/12/17 07:14 Assessment and Plan (1) HTN (hypertension) Status: Acute (2) Anxiety Status: Acute (3) PAD (peripheral artery disease) Status: Acute (4) Chr obstructive pulmonary disease w/ acute lower respiratory infxn Status: Acute (5) COPD exacerbation Status: Acute
[2017-10-13] MEDS: Albuterol-Ipratrop 3 mg / 0.5 (3 ml) UD IH SCH ×3 (01:37→20:37)
[2017-10-13] MEDS: MethylPREDNISolone 40 mg Vial IV SCH ×2 (04:20→16:56)
[2017-10-13] MEDS: Levothyroxine 100 MCG TAB PO SCH (06:15)
[2017-10-13 09:42] VITALS: RESP 20
[2017-10-13] MEDS: Budesonide 0.25 mg/2 ml Inhal Susp UD INH SCH ×2 (10:00→20:36)
[2017-10-13] MEDS: Enoxaparin 40 mg Syringe SC SCH (10:00)
[2017-10-13] MEDS: Fluticasone-Salmeterol 500-50mcg Diskus INH SCH ×2 (13:55→20:36)
[2017-10-13 16:02] VITALS: BP 153/87; PULSE 79; TEMP 98
[2017-10-13 16:45] VITALS: O2SAT 100
--- NOTE | 2017-10-13 16:51 | CP.PCM.PN ---
Subjective - Date & Time of Evaluation Date of Evaluation: 10/13/17 Time of Evaluation: 11:00 - Subjective Subjective: alert, awake, no sob or chest pains. Objective - Vital Signs/Intake and Output Vital Signs (last 24 hours): Temp Pulse Resp BP Pulse Ox 98.0 F 79 20 153/87 H 100 10/13/17 15:00 10/13/17 15:00 10/13/17 15:00 10/13/17 15:00 10/13/17 15:00 Intake and Output: 10/13/17 10/13/17 06:59 18:59 Intake Total 500 860 Balance 500 860 - Medications Medications: Current Medications Albuterol/Ipratropium (Duoneb 3 Mg/0.5 Mg (3 Ml) Ud) 3 ml IH RQ6 [facility] Last Admin: 10/13/17 10:00 Dose: 3 ml Azithromycin (Zithromax) 500 mg PO DAILY [facility] Budesonide (Pulmicort Respules) 0.25 mg INH RQ12 [facility] Last Admin: 10/13/17 10:00 Dose: 0.25 mg Enoxaparin Sodium (Lovenox) 40 mg SC DAILY [facility] Last Admin: 10/13/17 10:00 Dose: Not Given Famotidine (Pepcid) 20 mg PO DAILY [facility] Last Admin: 10/13/17 10:00 Dose: 20 mg Ferrous Sulfate (Feosol) 325 mg PO BID [facility] Last Admin: 10/13/17 10:00 Dose: 325 mg Gabapentin (Neurontin) 100 mg PO TID [facility] Last Admin: 10/13/17 14:03 Dose: 100 mg Levothyroxine Sodium (Synthroid) 100 mcg PO DAILY@0630 [facility] Last Admin: 10/13/17 06:15 Dose: 100 mcg Lorazepam (Ativan) 0.5 mg PO BID [facility] Last Admin: 10/13/17 10:00 Dose: 0.5 mg Losartan Potassium (Cozaar) 50 mg PO DAILY [facility] Last Admin: 10/13/17 10:00 Dose: 50 mg Methylprednisolone (Solu-Medrol) 40 mg IV Q12H [facility] Last Admin: 10/13/17 04:20 Dose: 40 mg Fluticasone/Salmeterol (Advair Diskus 500/50) 1 puff INH RQ12 [facility] Last Admin: 10/13/17 13:55 Dose: Not Given - Labs Labs: 10/09/17 16:08 10/12/17 07:14 Assessment and Plan - Assessment and Plan (Free Text) Assessment: 82 year old female admitted with COPD exacerbation, seen and examined. Alert, awake, out of bed on the chair. No sob, chest pains or wheezing. Discussed with DR Patel, plan to discharge home on tapering dose of prednisone. Advised to follow up with PMD in 1 week.
[2017-10-13] MEDS ORDERED: Pneumococcal 23-Valent Vaccine IM ONE (19:00)
--- NOTE | 2017-10-14 08:44 | CP.PCM.DIS ---
Provider - Provider Date of Admission: 10/09/17 17:08 Attending physician: Lex Patel MD Time Spent in preparation of Discharge (in minutes): 56 Diagnosis - Discharge Diagnosis (1) HTN (hypertension) Status: Acute (2) Anxiety Status: Acute (3) PAD (peripheral artery disease) Status: Acute (4) Chr obstructive pulmonary disease w/ acute lower respiratory infxn Status: Acute (5) COPD exacerbation Status: Acute Hospital Course - Lab Results Lab Results: Micro Results 10/09/17 16:00 Blood Blood Culture - Preliminary NO GROWTH AFTER 4 DAYS 10/09/17 15:45 Blood Blood Culture - Preliminary NO GROWTH AFTER 4 DAYS 10/09/17 17:30 Urine,Clean Catch Urine Culture - Final No Growth (<1,000 CFU/ML) Most Recent Lab Values WBC 5.6 K/uL (4.8-10.8) 10/09/17 16:08 RBC 3.33 Mil/uL (3.80-5.20) L 10/09/17 16:08 Hgb 10.6 g/dL (11.0-16.0) L 10/09/17 16:08 Hct 31.3 % (34.0-47.0) L 10/09/17 16:08 MCV 94.0 fL (81.0-99.0) D 10/09/17 16:08 MCH 31.8 pg (27.0-31.0) H 10/09/17 16:08 MCHC 33.9 g/dL (33.0-37.0) 10/09/17 16:08 RDW 15.0 % (11.5-14.5) H 10/09/17 16:08 Plt Count 264 K/uL (130-400) D 10/09/17 16:08 MPV 7.8 fL (7.2-11.7) 10/09/17 16:08 Neut % (Auto) 73.0 % (50.0-75.0) 10/09/17 16:08 Lymph % (Auto) 12.2 % (20.0-40.0) L 10/09/17 16:08 [place] % (Auto) 10.9 % (0.0-10.0) H 10/09/17 16:08 Eos % (Auto) 3.0 % (0.0-4.0) 10/09/17 16:08 Baso % (Auto) 0.9 % (0.0-2.0) 10/09/17 16:08 Neut # (Auto) 4.1 K/uL (1.8-7.0) 10/09/17 16:08 Lymph # (Auto) 0.7 K/uL (1.0-4.3) L 10/09/17 16:08 [place] # (Auto) 0.6 K/uL (0.0-0.8) 10/09/17 16:08 Eos # (Auto) 0.2 K/uL (0.0-0.7) 10/09/17 16:08 Baso # (Auto) 0.1 K/uL (0.0-0.2) 10/09/17 16:08 pO2 165 mm/Hg (30-55) H 10/12/17 14:20 VBG pH 7.45 (7.32-7.43) H 10/12/17 14:20 VBG pCO2 36 mmHg (40-60) L 10/12/17 14:20 VBG HCO3 26.0 mmol/L 10/12/17 14:20 VBG Total CO2 26.1 mmol/L (22-28) 10/12/17 14:20 VBG O2 Sat (Calc) 99.6 % (40-65) H 10/12/17 14:20 VBG Base Excess 1.3 mmol/L (0.0-2.0) 10/12/17 14:20 VBG Potassium 3.2 mmol/L (3.6-5.2) L 10/12/17 14:20 Sodium 142.0 mmol/l (132-148) 10/12/17 14:20 Chloride 110.0 mmol/L (98-107) H 10/12/17 14:20 Glucose 91 mg/dl (65-105) 10/12/17 14:20 Lactate 1.6 mmol/L (0.7-2.1) 10/12/17 14:20 Liter Flow 3.0 10/12/17 14:20 Sodium 141 mmol/L (132-148) 10/12/17 07:14 Potassium 4.3 mmol/L (3.6-5.2) 10/12/17 07:14 Chloride 106 mmol/L (98-107) 10/12/17 07:14 Carbon Dioxide 27 mmol/L (22-30) 10/12/17 07:14 Anion Gap 12 (10-20) 10/12/17 07:14 BUN 15 mg/dL (7-17) 10/12/17 07:14 Creatinine 0.8 mg/dL (0.7-1.2) 10/12/17 07:14 Est GFR ( Amer) > 60 10/12/17 07:14 Est GFR (Non-Af Amer) > 60 10/12/17 07:14 Random Glucose 92 mg/dL (65-105) 10/12/17 07:14 Calcium 8.5 mg/dl (8.6-10.4) L 10/12/17 07:14 Total Bilirubin 0.5 mg/dL (0.2-1.3) 10/12/17 07:14 AST 21 U/L (14-36) 10/12/17 07:14 ALT 14 U/L (9-52) 10/12/17 07:14 Alkaline Phosphatase 46 U/L (38-126) 10/12/17 07:14 Troponin I < 0.0120 ng/mL (0.00-0.120) 10/09/17 16:08 NT-Pro-B Natriuret Pep 122 pg/mL (0-900) 10/09/17 16:08 Total Protein 5.9 g/dL (6.3-8.3) L 10/12/17 07:14 Albumin 3.1 g/dL (3.5-5.0) L 10/12/17 07:14 Globulin 2.8 gm/dL (2.2-3.9) 10/12/17 07:14 Albumin/Globulin Ratio 1.1 (1.0-2.1) 10/12/17 07:14 Venous Blood Potassium 3.2 mmol/L (3.6-5.2) L 10/12/17 14:20 Urine Color Straw (YELLOW) 10/09/17 19:00 Urine Clarity Clear (Clear) 10/09/17 19:00 Urine pH 6.0 (5.0-8.0) 10/09/17 19:00 Ur Specific [place] 1.005 (1.003-1.030) 10/09/17 19:00 Urine Protein Negative mg/dL (NEGATIVE) 10/09/17 19:00 Urine Glucose (UA) Normal mg/dL (Normal) 10/09/17 19:00 Urine Ketones Negative mg/dL (NEGATIVE) 10/09/17 19:00 Urine Blood 1+ (NEGATIVE) H 10/09/17 19:00 Urine Nitrate Negative (NEGATIVE) 10/09/17 19:00 Urine Bilirubin Negative (NEGATIVE) 10/09/17 19:00 Urine Urobilinogen Normal mg/dL (0.2-1.0) 10/09/17 19:00 Ur Leukocyte Esterase Neg [place]/uL (Negative) 10/09/17 19:00 Urine WBC (Auto) < 1 /hpf (0-5) 10/09/17 19:00 Urine RBC (Auto) 5 /hpf (0-3) H 10/09/17 19:00 Ur Squamous Epith Cells 1 /hpf (0-5) 10/09/17 19:00 Urine Bacteria Rare (<OCC) 10/09/17 19:00 C. difficile Ag & Toxin Negative (NEGATIVE) 10/11/17 Unknown - Hospital Course Hospital Course: 82 year old female admitted with COPD exacerbation, seen and examined. Alert, awake, out of bed on the chair. No sob, chest pains or wheezing. seen and examined, she is feeling better, we plan to discharge home on tapering dose of prednisone.she has nebulaizer at home,LABA, Tyroid medications, on home oxygen, she is not a CO2 retainer. Advised to follow up with me in 1 week. Discharge Exam - Head Exam Head Exam: ATRAUMATIC, NORMAL INSPECTION, NORMOCEPHALIC - Eye Exam Eye Exam: EOMI, Normal appearance, PERRL Pupil Exam: NORMAL ACCOMODATION, PERRL - ENT Exam ENT Exam: Mucous Membranes Moist - Respiratory Exam Respiratory Exam: Decreased Breath Sounds, Wheezes - Cardiovascular Exam Cardiovascular Exam: REGULAR RHYTHM, +S1, +S2 - GI/Abdominal Exam GI & Abdominal Exam: Normal Bowel Sounds - Rectal Exam Rectal Exam: Deferred Discharge Plan - Discharge Medications Prescriptions: predniSONE [Prednisone] 10 mg PO DAILY #19 tab - Follow Up Plan Condition: FAIR Disposition: HOME/ ROUTINE Instructions: Heart Failure, Adult (DC), Exacerbation of COPD (DC), Prednisone , Peripheral Artery Disease (DC) Referrals: Lex Patel MD [Staff Provider] -
== END 2017-10-13 21:30 | disposition home or self-care (01) | DRG 192 ==
LOC: C.ER 15:11 → C.9E 17:08 → C.3T 19:06
PROVIDERS: ADMIT Internal Medicine; ATTEND Internal Medicine
DX: J44.1 Chronic obstructive pulmonary disease with (acute) exacerbation (principal); Z87.891 Personal history of nicotine dependence; I73.9 Peripheral vascular disease, unspecified; I50.9 Heart failure, unspecified; I11.0 Hypertensive heart disease with heart failure; F41.9 Anxiety disorder, unspecified; E78.5 Hyperlipidemia, unspecified; E03.9 Hypothyroidism, unspecified

== ENCOUNTER 2017-11-08 15:13 | Inpatient (IN) | payer MEDICARE, OTHER ==
[2017-11-08 15:13] VITALS: BMI 18.1
--- NOTE | 2017-11-08 15:30 | C.PDOC ---
History Of Present Illness <Marcos,Luz Borden - Last Filed: 11/08/17 15:24> <Izabel Rodgers Michi - Last Filed: 11/08/17 17:40> 82 y/o female, w/PMhx of COPD, brought to ER by ambulance, complaining of diarrhea which has present on/off for the past 5 days. Patient is also complaining of chest pain, SOB, and wheezing. Denies having fever, chills, abdominal pain, and vomiting. Of note, patient's PMD is . (Izabel Rodgers) <Marcos,Luz A - Last Filed: 11/08/17 15:24> History Per: Patient History/Exam Limitations: no limitations Onset/Duration Of Symptoms: Days Current Symptoms Are (Timing): Still Present Severity: Moderate Recent travel outside of the [place]: No <Izabel Rodgers Michi - Last Filed: 11/08/17 17:40> Time Seen by Provider: 11/08/17 15:21 Chief Complaint (Nursing): GI Problem Past Medical History - Medical History PMH: Anxiety, Arthritis, CHF, COPD, Emphysema, HTN, Hypothyroidism Surgical History: Denies: Pacemaker - Social History Hx Alcohol Use: No Hx Substance Use: No - Immunization History Hx Tetanus Toxoid Vaccination: Yes Hx Influenza Vaccination: Yes (04/2017) Hx Pneumococcal Vaccination: Yes <Luz Rodríguez - Last Filed: 11/08/17 15:24> Reviewed: Historical Data, Nursing Documentation, Vital Signs - Medical History PMH: Anxiety, Arthritis, CHF, COPD, Emphysema, HTN Family History: States: No Known Family Hx <Izabel Rodgers Michi - Last Filed: 11/08/17 17:40> Vital Signs: Last Vital Signs Temp 98.5 F 11/08/17 17:23 Pulse 95 H 11/08/17 17:23 Resp 16 11/08/17 17:23 BP 116/61 11/08/17 17:23 Pulse Ox 95 11/08/17 17:23 - [facility] Procedures ANGIOPLASTY OF OTHER NON-CORONARY VESSEL(S) (01/22/15) INSEJ [id number] PERIPHERAL NON-CORONARY VES STENT(S) (01/22/15) INSERTION OF TWO VASCULAR STENTS (01/22/15) PROCEDURE ON TWO VESSELS (01/22/15) RADICAL EXCIS SKIN LES (10/29/12) Review Of Systems Except As Marked, All Systems Reviewed And Found Negative. Constitutional: Negative for: Fever, Chills Cardiovascular: Positive for: Chest Pain. Negative for: Edema Respiratory: Positive for: Shortness of Breath, Wheezing. Negative for: Cough Gastrointestinal: Positive for: Diarrhea. Negative for: Abdominal Pain <Izabel Rodgers - Last Filed: 11/08/17 17:40> Physical Exam - Physical Exam Appears: Non-toxic, No Acute Distress Skin: Normal Color, Warm, Dry Head: Atraumatic, Normacephalic Eye(s): bilateral: Normal Inspection Nose: Normal Oral Mucosa: Moist Neck: Supple Chest: Symmetrical Cardiovascular: Rhythm Regular Respiratory: Decreased Breath Sounds, No Rales, No Rhonchi, No Wheezing Gastrointestinal/Abdominal: Normal Exam, Soft, No Tenderness Extremity: No Pedal Edema Neurological/Psych: Oriented x3, Normal Speech Gait: Unable To Assess <Izabel Rodgers Last Filed: 11/08/17 17:40> ED Course And Treatment - Laboratory Results Result Diagrams: 11/08/17 16:11 11/08/17 16:11 Lab Interpretation: No Acute Changes ECG: Interpreted By Me ECG Rhythm: Sinus Rhythm, R BBB ECG Interpretation: No Acute Changes Rate From EC O2 Sat by Pulse Oximetry: 95 Pulse Ox Interpretation: Normal - Radiology CXR: Viewed By Me (FINDINGS:), Read By Radiologist Progress Note: Treated with IVF NSS, Duonebs and solumedrol. Case discussed with Dr Patel who request admission. On re-evaluation lungs clear, abdomen soft Reassessment Condition: Improved - Physician Consult Information Physician Contacted: Lex Patel Outcome Of Conversation: admit <Izabel Rodgers - Last Filed: 11/08/17 17:40> Medical Decision Making <Luz Rodríguez - Last Filed: 11/08/17 15:24> <Izabel Rodgers - Last Filed: 11/08/17 17:40> Medical Decision Making: Plan: --Labs --UA --CXR --Solu-Medrol PO --IV Fluids --Albuterol Updates: Case discussed with . Patient will be admitted under the service of Dr. Patel for COPD exacerbation and diarrhea. (Izabel Rodgers) Disposition <MarcosLuz dickey - Last Filed: 11/08/17 15:24> Discussed With Dr.: Lex Patel Doctor Will See Patient In The: Hospital - Disposition Disposition Time: 17:15 - POA Present On Arrival: None <Izabel Rodgers - Last Filed: 11/08/17 17:40> - Disposition Disposition: HOSPITALIZED Condition: STABLE Forms: [employer] (German) - Clinical Impression Clinical Impression: COPD exacerbation, Diarrhea, COPD exacerbation <Luz Rodríguez - Last Filed: 11/08/17 15:24> - PA / ON SITE SOIL EVALUATOR / Resident Statement MD/DO has reviewed & agrees with the documentation as recorded. - Scribe Statement The provider has reviewed the documentation as recorded by the Scribe <Izabel Rodgers - Last Filed: 11/08/17 17:40> - Scribe Statement Fang Gonzalez Provider Attestation All medical record entries made by the Scribe were at my direction and personally dictated by me. I have reviewed the chart and agree that the record accurately reflects my personal performance of the history, physical exam, medical decision making, and the department course for this patient. I have also personally directed, reviewed, and agree with the discharge instructions and disposition. (Izabel Rodgers) Decision To Admit <Marcos,Luz Michi - Last Filed: 11/08/17 15:24> - Pt Status Changed To: Hospital Disposition Of: Inpatient - Admit Certification Admit to Inpatient:: After my assessment, the patient will require hospitalization for at least two midnights. This is because of the severity of symptoms shown, intensity of services needed, and/or the medical risk in this patient being treated as an outpatient. - InPatient: Physician Admission Certification: I certify that this patient requires 2 or more midnights of care for the following reason:: COPD exacerbation. Diarrhea - . Bed Request Type: Regular Admitting Physician: Lex Patel <Izabel Rodgers - Last Filed: 11/08/17 17:40> - . Patient Diagnosis: COPD exacerbation
[2017-11-08] MEDS ORDERED: Sodium Chloride 0.9% 1,000 ML IV ONE (15:33)
[2017-11-08] MEDS ORDERED: Albuterol-Ipratrop 3 mg / 0.5 (3 ml) UD ONE (16:09)
[2017-11-08] MEDS: Albuterol-Ipratrop 3 mg / 0.5 (3 ml) UD IH SCH (16:10)
--- NOTE | 2017-11-08 16:12 | RAD ---
PROCEDURE: CHEST RADIOGRAPH, 1 VIEW HISTORY: SOB COMPARISON: 10/09/2017. FINDINGS: LUNGS: The lungs are hyperinflated and there is peribronchial thickening with chronic changes in both lungs. No focal consolidation. PLEURA: No pneumothorax or pleural fluid seen. CARDIOVASCULAR: The heart is normal in size. OSSEOUS STRUCTURES: No significant abnormalities. VISUALIZED UPPER ABDOMEN: Normal. OTHER FINDINGS: None. IMPRESSION: No active pulmonary disease. COPD.
[2017-11-08 16:18] LABS: BASO # 0.1 K/uL (0.0-0.2); BASO % 0.6 % (0.0-2.0); EOS # 0.2 K/uL (0.0-0.7); EOS % 2.1 % (0.0-4.0); HEMOGLOBIN 13.2 g/dL (11.0-16.0); LYMPH # 0.7 K/uL (1.0-4.3); LYMPH % 5.8 % (20.0-40.0); MEAN CELL VOLUME 96.8 fL (81.0-99.0); MEAN CORPUSCULAR HEMOGLOBIN 31.7 pg (27.0-31.0); MEAN CORPUSCULAR HGB CONC 32.8 g/dL (33.0-37.0); MEAN PLATELET VOLUME 7.3 fL (7.2-11.7); MONO # 0.8 K/uL (0.0-0.8); NEUT # 9.6 K/uL (1.8-7.0); NEUT % 84.5 % (50.0-75.0); PLATELET COUNT 275 K/uL (130-400); RBC 4.15 Mil/uL (3.80-5.20); RED CELL DISTRIBUTION WIDTH 15.5 % (11.5-14.5); WHITE BLOOD COUNT 11.4 K/uL (4.8-10.8)
[2017-11-08] MEDS ORDERED: MethylPREDNISolone 40 mg Vial IVP STA (16:20)
[2017-11-08 16:23] LABS: INR 1.1; PROTHROMBIN TIME 12.3 SECONDS (9.7-12.2)
[2017-11-08 16:28] LABS: SQUAMOUS EPITHIAL 2 /hpf (0-5); URINE BACTERIA RARE (<OCC); URINE BILIRUBIN NEGATIVE (NEGATIVE); URINE BLOOD 2+ (NEGATIVE); URINE CLARITY Clear (Clear); URINE COLOR Straw (YELLOW); URINE GLUCOSE (UA) NORMAL (Normal); URINE LEUKOCYTE ESTERASE 2+ Leu/uL (Negative); URINE PROTEIN NEGATIVE (NEGATIVE); URINE UROBILINOGEN NORMAL mg/dL (0.2-1.0)
[2017-11-08 16:30] LABS: ALB/GLOB RATIO 1.2 (1.0-2.1); ALBUMIN 3.2 g/dL (3.5-5.0); ALT/SGPT 29 U/L (9-52); AST/SGOT 23 U/L (14-36); BLOOD UREA NITROGEN 17 mg/dL (7-17); CALCIUM 8.6 mg/dl (8.6-10.4); GFR AFRICAN-AMERICAN > 60; GFR NON-AFRICAN AMERICAN > 60; LIPASE 170 U/L (23-300)
[2017-11-08] MEDS ORDERED: MethylPREDNISolone 40 mg Vial ONE (16:31)
[2017-11-08] MEDS ORDERED: Sodium Chloride 0.9% 1,000 ML ONE (16:31)
[2017-11-08 16:54] LABS: CK-MB 1.33 ng/mL (0.0-3.38)
[2017-11-08 17:35] LABS: LYMPHOCYTE 3 % (20-40); MONOCYTE 5 % (0-10); NEUTROPHIL 92 % (50-75); TOTAL CELLS COUNTED 100
[2017-11-08 17:36] LABS: PLATELET ESTIMATE NORMAL (NORMAL)
[2017-11-08 17:38] LABS: ANISOCYTOSIS SLIGHT
[2017-11-08] MEDS: guaiFENesin 600 mg ER Tab PO SCH (19:00)
--- NOTE | 2017-11-08 19:31 | CP.PCM.CON ---
History of Present Illness - History of Present Illness History of Present Illness: Reason for Consult: COPD Patient is a. 82 year old female with a past medical history of COPD admitted to [facility] on 11/08 for diarrhea of 5 days' duration. At the time of admission, patient also complained of shortness of breath and CXR ordered in the ED showed chronic COPD changes, without acute lung disease. Patient receives home oxygen and has consistently saturated in the high 90's on nasal cannula during this admission. Patient seen and examined today and was alert, oriented and cooperative. Patient in no apparent respiratory distress and conversational on nasal cannula. Most recent labs show leukocytosis, likely related to gastrointestinal presentation but the patient is afebrile. Review of Systems - Review of Systems All systems: reviewed and no additional remarkable complaints except (shortness of breath and diarrhea) Past Patient History - Past Medical History & Family History Past Medical History?: Yes - Past Social History Smoking Status: Former Smoker - CARDIAC Hx Congestive Heart Failure: Yes Hx Hypertension: Yes - PULMONARY Hx Chronic Obstructive Pulmonary Disease (COPD): Yes Hx Emphysema: Yes - NEUROLOGICAL Hx Neurological Disorder: No Hx Paralysis: No - HEENT Hx HEENT Problems: No - ENDOCRINE/METABOLIC Hx Hypothyroidism: Yes - HEMATOLOGICAL/ONCOLOGICAL Hx Blood Disorders: No Hx Blood Transfusions: No - INTEGUMENTARY Hx Dermatological Problems: No - MUSCULOSKELETAL/RHEUMATOLOGICAL Hx Arthritis: Yes - GASTROINTESTINAL Hx Gastrointestinal Disorders: No - GENITOURINARY/GYNECOLOGICAL Hx Genitourinary Disorders: No - PSYCHIATRIC Hx Anxiety: Yes - SURGICAL HISTORY Hx Surgeries: Yes Other/Comment: insertion of vascular stents (01/31) - ANESTHESIA Hx Anesthesia: Yes Hx Anesthesia Reactions: No Hx Malignant Hyperthermia: No Meds Allergies/Adverse Reactions: Allergies Allergy/AdvReac Type Severity Reaction Status Date / Time No Known Allergies Allergy Verified 10/28/17 12:21 - Medications Medications: Current Medications Albuterol/Ipratropium (Duoneb 3 Mg/0.5 Mg (3 Ml) Ud) 3 ml INH RQ6 [facility] Bismuth Subsalicylate (Pepto Bismol) 262 mg PO TID [facility] Cilostazol (Pletal) 50 mg PO BID [facility] Enoxaparin Sodium (Lovenox) 40 mg SC DAILY [facility] Ergocalciferol (Drisdol 50,000 Intl Units Cap) 1 cap PO QWK [facility] Famotidine (Pepcid) 20 mg PO BID [facility] Gabapentin (Neurontin) 300 mg PO TID [facility] Guaifenesin (Mucinex La) 600 mg PO BID [facility] Levothyroxine Sodium (Synthroid) 75 mcg PO DAILY [facility] Losartan Potassium (Cozaar) 50 mg PO DAILY [facility] Methylprednisolone (Solu-Medrol) 60 mg IV Q12 [facility] Fluticasone/Salmeterol (Advair Diskus 250/50) 1 puff INH RQ12 [facility] Physical Exam - Head Exam Head Exam: ATRAUMATIC, NORMOCEPHALIC - Eye Exam Eye Exam: Normal appearance - ENT Exam ENT Exam: Mucous Membranes Moist - Neck Exam Neck exam: Positive for: Normal Inspection - Respiratory Exam Respiratory Exam: Decreased Breath Sounds - Cardiovascular Exam Cardiovascular Exam: REGULAR RHYTHM - GI/Abdominal Exam GI & Abdominal Exam: Normal Bowel Sounds - Extremities Exam Extremities exam: Positive for: normal inspection - Neurological Exam Neurological exam: Alert, Oriented x3 Results - Vital Signs Recent Vital Signs: Last Vital Signs Temp 98 F 11/08/17 18:58 Pulse 91 H 11/08/17 18:58 Resp 18 11/08/17 18:58 BP 125/71 11/08/17 18:58 Pulse Ox 100 11/08/17 18:58 - Labs Result Diagrams: 11/08/17 16:11 11/08/17 16:11 Labs: Laboratory Results - last 24 hr 11/08/17 11/08/17 11/08/17 16:11 16:11 16:11 WBC 11.4 H RBC 4.15 Hgb 13.2 Hct 40.2 MCV 96.8 MCH 31.7 H MCHC 32.8 L RDW 15.5 H Plt Count 275 MPV 7.3 Neut % (Auto) 84.5 H Lymph % (Auto) 5.8 L [place] % (Auto) 7.0 Eos % (Auto) 2.1 Baso % (Auto) 0.6 Neut # (Auto) 9.6 H Lymph # (Auto) 0.7 L [place] # (Auto) 0.8 Eos # (Auto) 0.2 Baso # (Auto) 0.1 Neutrophils % (Manual) 92 H Lymphocytes % (Manual) 3 L Monocytes % (Manual) 5 Platelet Estimate Normal Anisocytosis (manual) Slight PT INR Sodium 139 Potassium 3.4 L Chloride 102 Carbon Dioxide 31 H Anion Gap 9 L BUN 17 Creatinine 0.8 Est GFR ( Amer) > 60 Est GFR (Non-Af Amer) > 60 Random Glucose 75 Calcium 8.6 Total Bilirubin 0.4 AST 23 ALT 29 Alkaline Phosphatase 52 CK-MB (Mass) 1.33 Troponin I 0.0170 Total Protein 6.0 L Albumin 3.2 L Globulin 2.8 Albumin/Globulin Ratio 1.2 Lipase 170 Urine Color Straw Urine Clarity Clear Urine pH 7.0 Ur Specific [place] 1.004 Urine Protein Negative Urine Glucose (UA) Normal Urine Ketones Negative Urine Blood 2+ H Urine Nitrate Negative Urine Bilirubin Negative Urine Urobilinogen Normal Ur Leukocyte Esterase 2+ H Urine WBC (Auto) 2 Urine RBC (Auto) 1 Ur Squamous Epith Cells 2 Urine Bacteria Rare 11/08/17 16:11 WBC RBC Hgb Hct MCV MCH MCHC RDW Plt Count MPV Neut % (Auto) Lymph % (Auto) [place] % (Auto) Eos % (Auto) Baso % (Auto) Neut # (Auto) Lymph # (Auto) [place] # (Auto) Eos # (Auto) Baso # (Auto) Neutrophils % (Manual) Lymphocytes % (Manual) Monocytes % (Manual) Platelet Estimate Anisocytosis (manual) PT 12.3 H INR 1.1 Sodium Potassium Chloride Carbon Dioxide Anion Gap BUN Creatinine Est GFR ( Amer) Est GFR (Non-Af Amer) Random Glucose Calcium Total Bilirubin AST ALT Alkaline Phosphatase CK-MB (Mass) Troponin I Total Protein Albumin Globulin Albumin/Globulin Ratio Lipase Urine Color Urine Clarity Urine pH Ur Specific [place] Urine Protein Urine Glucose (UA) Urine Ketones Urine Blood Urine Nitrate Urine Bilirubin Urine Urobilinogen Ur Leukocyte Esterase Urine WBC (Auto) Urine RBC (Auto) Ur Squamous Epith Cells Urine Bacteria Assessment & Plan - Assessment and Plan (Free Text) Assessment: 1. COPD exacerbation Patient is home-oxygen dependent and has consistently saturated in the high 90' s on nasal cannula as an inpatient. Continue Duoneb breathing treatments, as well as Solu-medrol 60 mg IV q12h and Advair 250/50 rq12h.
[2017-11-08] MEDS: Fluticasone-Salmeterol 250-50mcg Diskus INH SCH (20:06)
[2017-11-08] MEDS: Albuterol-Ipratrop 3 mg / 0.5 (3 ml) UD INH SCH (20:07)
--- NOTE | 2017-11-08 23:45 | CP.PCM.HP ---
History of Present Illness - History of Present Illness History of Present Illness: CC: shortness of breath HPI: 82 y/o AA female, w/PMhx of COPD, brought to ER by ambulance, complaining of diarrhea which has present on/off for the past 5 days. Patient is also complaining of chest pain, SOB, and wheezing. Denies having fever, chills, abdominal pain, and vomiting, she also have loose wattery stools associated with alternating diarrhea and constipation, she has tingling, numbness and burning in feet Present on Admission - Present on Admission Any Indicators Present on Admission: Yes Review of Systems - Review of Systems Systems not reviewed;Unavailable: Acuity of Condition - Constitutional Constitutional: Anorexia, Fatigue, Lethargy, Malaise, Weakness - EENT Eyes: absent: As Per HPI, Blind Spots, Blurred Vision, Change in Vision, Decreased Night Vision, Diplopia, Discharge, Dry Eye, Exophthalmos, Floaters, Irritation, Itchy Eyes, Loss of Peripheral Vision, Pain, Photophobia, Requires Corrective Lenses, Sees Flashes, Spots in Vision, Tunnel Vision, Other Visual Disturbances, Loss of Vision, Other Nose/Mouth/Throat: absent: As Per HPI, Epistaxis, Nasal Congestion, Nasal Discharge, Nasal Obstruction, Nasal Trauma, Nose Pain, Post Nasal Drip, Sinus Pain, Sinus Pressure, Bleeding Gums, Change in Voice, Dental Pain, Dry Mouth, Dysphagia, Halitosis, Hoarsness, Lip Swelling, Mouth Lesions, Mouth Pain, Odynophagia, Sore Throat, Throat Swelling, Tongue Swelling, Facial Pain, Neck Pain, Neck Mass, Other - Breasts Breasts: absent: As Per HPI, Change in Shape, Mass, Pain, Nipple Discharge, Nipple Inversion, Skin Changes, Swelling, Other - Cardiovascular Cardiovascular: absent: As Per HPI, Acrocyanosis, Chest Pain, Chest Pain at Rest , Chest Pain with Activity, Claudication, Diaphoresis, Dyspnea, Dyspnea on Exertion, Edema, Irregular Heart Rhythm, Pain Radiating to Arm/Neck/Jaw, Leg Edema, Leg Ulcers, Lightheadedness, Orthopnea, Palpitations, Paroxysmal Nocturnal Dyspnea, Pedal Edema, Radiating Pain, Rapid Heart Rate, Slow Heart Rate, Syncope, Other - Respiratory Respiratory: Dyspnea, Dyspnea on Exertion - Gastrointestinal Gastrointestinal: Abdominal Pain, Constipation, Cramping, Diarrhea. absent: As Per HPI, Belching, Bloating, Change in Bowel Habits, Change in Stool Character, Coffee Ground Emesis, Dyspepsia, Dysphagia, Early Satiety, Excessive Flatus, Fecal Incontinence, Heartburn, Hematemesis, Hematochezia, Loose Stools, Melena, Nausea, Odynophagia, Temesmus, Vomiting, Other - Genitourinary Genitourinary: absent: As Per HPI, Change in Urinary Stream, Difficulty Urinating, Dysuria, Flank Pain, Hematuria, Pyuria, Nocturia, Urinary Incontinence, Urinary Frequency, Urinary Hesitance, Urinary Urgency, Voiding Freq/Small Amts, Freq UTI, Hx Renal/Bladder Calculi, Hx /Renal Surgery, Bladder Distension, Other Past Patient History - Past Medical History & Family History Past Medical History?: Yes - Past Social History Smoking Status: Former Smoker - CARDIAC Hx Congestive Heart Failure: Yes Hx Hypertension: Yes - PULMONARY Hx Chronic Obstructive Pulmonary Disease (COPD): Yes Hx Emphysema: Yes - NEUROLOGICAL Hx Neurological Disorder: No Hx Paralysis: No - HEENT Hx HEENT Problems: No - ENDOCRINE/METABOLIC Hx Hypothyroidism: Yes - HEMATOLOGICAL/ONCOLOGICAL Hx Blood Disorders: No Hx Blood Transfusions: No - INTEGUMENTARY Hx Dermatological Problems: No - MUSCULOSKELETAL/RHEUMATOLOGICAL Hx Falls: No - GASTROINTESTINAL Hx Gastrointestinal Disorders: No - GENITOURINARY/GYNECOLOGICAL Hx Genitourinary Disorders: No - PSYCHIATRIC Hx Substance Use: No - SURGICAL HISTORY Hx Surgeries: Yes Other/Comment: insertion of vascular stents (01/31) - ANESTHESIA Hx Anesthesia: Yes Hx Anesthesia Reactions: No Hx Malignant Hyperthermia: No Meds Allergies/Adverse Reactions: Allergies Allergy/AdvReac Type Severity Reaction Status Date / Time No Known Allergies Allergy Verified 10/28/17 12:21 Physical Exam - Constitutional Appears: No Acute Distress, Cachectic - Head Exam Head Exam: ATRAUMATIC, NORMAL INSPECTION, NORMOCEPHALIC - Eye Exam Eye Exam: EOMI, Normal appearance, PERRL Pupil Exam: NORMAL ACCOMODATION, PERRL - Neck Exam Neck exam: Positive for: Normal Inspection - Respiratory Exam Respiratory Exam: Decreased Breath Sounds, Rales, Rhonchi - Cardiovascular Exam Cardiovascular Exam: REGULAR RHYTHM - GI/Abdominal Exam GI & Abdominal Exam: Hyperactive Bowel Sounds, Normal Bowel Sounds, Soft, Tenderness - Rectal Exam Rectal Exam: Deferred Results - Vital Signs Recent Vital Signs: Last Vital Signs Temp 98 F 05/23/18 18:58 Pulse 91 H 11/08/17 18:58 Resp 18 11/08/17 18:58 BP 125/71 11/08/17 18:58 Pulse Ox 98 11/08/17 20:35 - Labs Result Diagrams: 11/08/17 16:11 11/08/17 16:11 Labs: Laboratory Results - last 24 hr 11/08/17 11/08/17 11/08/17 16:11 16:11 16:11 WBC 11.4 H RBC 4.15 Hgb 13.2 Hct 40.2 MCV 96.8 MCH 31.7 H MCHC 32.8 L RDW 15.5 H Plt Count 275 MPV 7.3 Neut % (Auto) 84.5 H Lymph % (Auto) 5.8 L [place] % (Auto) 7.0 Eos % (Auto) 2.1 Baso % (Auto) 0.6 Neut # (Auto) 9.6 H Lymph # (Auto) 0.7 L [place] # (Auto) 0.8 Eos # (Auto) 0.2 Baso # (Auto) 0.1 Neutrophils % (Manual) 92 H Lymphocytes % (Manual) 3 L Monocytes % (Manual) 5 Platelet Estimate Normal Anisocytosis (manual) Slight PT INR Sodium 139 Potassium 3.4 L Chloride 102 Carbon Dioxide 31 H Anion Gap 9 L BUN 17 Creatinine 0.8 Est GFR ( Amer) > 60 Est GFR (Non-Af Amer) > 60 Random Glucose 75 Calcium 8.6 Total Bilirubin 0.4 AST 23 ALT 29 Alkaline Phosphatase 52 CK-MB (Mass) 1.33 Troponin I 0.0170 Total Protein 6.0 L Albumin 3.2 L Globulin 2.8 Albumin/Globulin Ratio 1.2 Lipase 170 Urine Color Straw Urine Clarity Clear Urine pH 7.0 Ur Specific [place] 1.004 Urine Protein Negative Urine Glucose (UA) Normal Urine Ketones Negative Urine Blood 2+ H Urine Nitrate Negative Urine Bilirubin Negative Urine Urobilinogen Normal Ur Leukocyte Esterase 2+ H Urine WBC (Auto) 2 Urine RBC (Auto) 1 Ur Squamous Epith Cells 2 Urine Bacteria Rare 11/08/17 16:11 WBC RBC Hgb Hct MCV MCH MCHC RDW Plt Count MPV Neut % (Auto) Lymph % (Auto) [place] % (Auto) Eos % (Auto) Baso % (Auto) Neut # (Auto) Lymph # (Auto) [place] # (Auto) Eos # (Auto) Baso # (Auto) Neutrophils % (Manual) Lymphocytes % (Manual) Monocytes % (Manual) Platelet Estimate Anisocytosis (manual) PT 12.3 H INR 1.1 Sodium Potassium Chloride Carbon Dioxide Anion Gap BUN Creatinine Est GFR ( Amer) Est GFR (Non-Af Amer) Random Glucose Calcium Total Bilirubin AST ALT Alkaline Phosphatase CK-MB (Mass) Troponin I Total Protein Albumin Globulin Albumin/Globulin Ratio Lipase Urine Color Urine Clarity Urine pH Ur Specific [place] Urine Protein Urine Glucose (UA) Urine Ketones Urine Blood Urine Nitrate Urine Bilirubin Urine Urobilinogen Ur Leukocyte Esterase Urine WBC (Auto) Urine RBC (Auto) Ur Squamous Epith Cells Urine Bacteria Assessment & Plan (1) Colitis Status: Acute (2) COPD exacerbation Status: Acute (3) Diarrhea Status: Acute (4) Anxiety Status: Acute (5) HTN (hypertension) Status: Acute (6) PAD (peripheral artery disease) Status: Acute - Assessment and Plan (Free Text) Plan: pt seen and examined, detailed orders written
[2017-11-09 01:11] VITALS: RESP 20
[2017-11-09] MEDS: Albuterol-Ipratrop 3 mg / 0.5 (3 ml) UD INH SCH ×4 (01:37→19:46)
[2017-11-09] MEDS: Levothyroxine 75 MCG TAB PO SCH (05:59)
[2017-11-09] MEDS: Fluticasone-Salmeterol 250-50mcg Diskus INH SCH ×2 (07:05→19:45)
[2017-11-09] MEDS ORDERED: Enoxaparin 40 mg Syringe SC SCH (10:00)
[2017-11-09] MEDS ORDERED: Ergocalciferol 50,000 Intl Units Cap PO SCH (10:00)
[2017-11-09] MEDS ORDERED: Levothyroxine 75 MCG TAB PO SCH (10:00)
[2017-11-09] MEDS: guaiFENesin 600 mg ER Tab PO SCH ×2 (11:28→17:44)
[2017-11-09] MEDS: Bismuth Subsalicylate 262 mg Chew Tab PO SCH ×3 (11:29→18:33)
[2017-11-09] MEDS: Cilostazol 50 mg Tab UD PO SCH ×2 (11:29→18:33)
[2017-11-09] MEDS ORDERED: Pneumococcal 23-Valent Vaccine IM ONE (11:45)
[2017-11-09] MEDS: Enoxaparin 40 mg Syringe SC SCH (11:52)
--- NOTE | 2017-11-09 14:06 | CARD ---
APPROVED REPORT EKG Measurement Heart [id number] <Conclusion> Sinus rhythm with premature atrial complexes Incomplete right bundle branch block Left anterior fascicular block Abnormal ECG
--- NOTE | 2017-11-09 17:20 | CP.PCM.PN ---
Subjective - Date & Time of Evaluation Date of Evaluation: 11/09/17 Time of Evaluation: 09:00 - Subjective Subjective: the patient seen and examined Patient states diarrhea is much better but still has dyspnea on minimal exertion Afebrile No chest pain Objective - Vital Signs/Intake and Output Vital Signs (last 24 hours): Temp Pulse Resp BP Pulse Ox 98.3 F 75 20 117/73 96 11/09/17 16:00 11/09/17 16:00 11/09/17 16:00 11/09/17 16:00 11/09/17 16:00 - Medications Medications: Current Medications Albuterol/Ipratropium (Duoneb 3 Mg/0.5 Mg (3 Ml) Ud) 3 ml INH RQ6 [facility] Last Admin: 11/09/17 14:00 Dose: 3 ml Bismuth Subsalicylate (Pepto Bismol) 262 mg PO TID [facility] Last Admin: 11/09/17 15:20 Dose: 262 mg Cilostazol (Pletal) 50 mg PO BID [facility] Last Admin: 11/09/17 11:29 Dose: 50 mg Enoxaparin Sodium (Lovenox) 40 mg SC DAILY [facility] Last Admin: 11/09/17 11:52 Dose: 40 mg Ergocalciferol (Drisdol 50,000 Intl Units Cap) 1 cap PO QWK [facility] Last Admin: 11/09/17 11:28 Dose: 1 cap Famotidine (Pepcid) 20 mg PO BID [facility] Last Admin: 11/09/17 11:28 Dose: 20 mg Gabapentin (Neurontin) 300 mg PO TID [facility] Last Admin: 11/09/17 15:20 Dose: 300 mg Guaifenesin (Mucinex La) 600 mg PO BID [facility] Last Admin: 11/09/17 11:28 Dose: 600 mg Levothyroxine Sodium (Synthroid) 75 mcg PO DAILY@0630 [facility] Last Admin: 11/09/17 05:59 Dose: 75 mcg Losartan Potassium (Cozaar) 50 mg PO DAILY [facility] Last Admin: 11/09/17 11:28 Dose: 50 mg Methylprednisolone (Solu-Medrol) 60 mg IV Q12 [facility] Last Admin: 11/09/17 11:28 Dose: 60 mg Fluticasone/Salmeterol (Advair Diskus 250/50) 1 puff INH RQ12 [facility] Last Admin: 11/09/17 07:05 Dose: 1 puff - Labs Labs: 11/08/17 16:11 11/08/17 16:11 PT 12.3 SECONDS (9.7-12.2) H 11/08/17 16:11 INR 1.1 11/08/17 16:11 - Head Exam Head Exam: ATRAUMATIC, NORMOCEPHALIC - Eye Exam Eye Exam: Normal appearance - ENT Exam ENT Exam: Mucous Membranes Moist - Neck Exam Neck Exam: Full ROM, Normal Inspection - Respiratory Exam Respiratory Exam: Decreased Breath Sounds - Cardiovascular Exam Cardiovascular Exam: REGULAR RHYTHM - GI/Abdominal Exam GI & Abdominal Exam: Soft, Normal Bowel Sounds - Extremities Exam Extremities Exam: Normal Inspection - Neurological Exam Neurological Exam: Alert, Oriented x3 Assessment and Plan (1) COPD exacerbation Assessment & Plan: continue nebulizer treatment Continue IV steroids Status: Acute
[2017-11-10] MEDS: Albuterol-Ipratrop 3 mg / 0.5 (3 ml) UD INH SCH ×4 (02:13→19:27)
--- NOTE | 2017-11-10 05:27 | CP.PCM.PN ---
Subjective - Date & Time of Evaluation Date of Evaluation: 11/09/17 Time of Evaluation: 19:00 - Subjective Subjective: Patient seen and examined at bedside today, Patient resting comfortably in bed in no distress.still c/o diarrhea and sob on exertion denies any chest pain, nausea, vomitting Objective - Vital Signs/Intake and Output Vital Signs (last 24 hours): Temp Pulse Resp BP Pulse Ox 97.6 F 86 20 102/65 100 11/10/17 00:00 11/10/17 00:00 11/10/17 00:00 11/10/17 00:00 11/10/17 00:00 - Medications Medications: Current Medications Albuterol/Ipratropium (Duoneb 3 Mg/0.5 Mg (3 Ml) Ud) 3 ml INH RQ6 [facility] Last Admin: 11/10/17 02:13 Dose: Not Given Bismuth Subsalicylate (Pepto Bismol) 262 mg PO TID [facility] Last Admin: 11/09/17 18:33 Dose: 262 mg Cilostazol (Pletal) 50 mg PO BID [facility] Last Admin: 11/09/17 18:33 Dose: 50 mg Enoxaparin Sodium (Lovenox) 40 mg SC DAILY [facility] Last Admin: 11/09/17 11:52 Dose: 40 mg Ergocalciferol (Drisdol 50,000 Intl Units Cap) 1 cap PO QWK [facility] Last Admin: 11/09/17 11:28 Dose: 1 cap Famotidine (Pepcid) 20 mg PO BID [facility] Last Admin: 11/09/17 17:43 Dose: 20 mg Gabapentin (Neurontin) 300 mg PO TID [facility] Last Admin: 11/09/17 17:43 Dose: 300 mg Guaifenesin (Mucinex La) 600 mg PO BID [facility] Last Admin: 11/09/17 17:44 Dose: 600 mg Levothyroxine Sodium (Synthroid) 75 mcg PO DAILY@0630 [facility] Last Admin: 11/09/17 05:59 Dose: 75 mcg Losartan Potassium (Cozaar) 50 mg PO DAILY [facility] Last Admin: 11/09/17 11:28 Dose: 50 mg Methylprednisolone (Solu-Medrol) 60 mg IV Q12 [facility] Last Admin: 11/09/17 21:45 Dose: 60 mg Fluticasone/Salmeterol (Advair Diskus 250/50) 1 puff INH RQ12 [facility] Last Admin: 11/09/17 19:45 Dose: 1 puff - Labs Labs: 11/08/17 16:11 11/08/17 16:11 PT 12.3 SECONDS (9.7-12.2) H 11/08/17 16:11 INR 1.1 11/08/17 16:11 Assessment and Plan (1) Colitis Status: Acute (2) COPD exacerbation Status: Acute (3) Diarrhea Status: Acute (4) Anxiety Status: Acute (5) HTN (hypertension) Status: Acute (6) PAD (peripheral artery disease) Status: Acute
[2017-11-10] MEDS: Levothyroxine 75 MCG TAB PO SCH (06:36)
[2017-11-10] MEDS: guaiFENesin 600 mg ER Tab PO SCH ×2 (09:06→18:21)
[2017-11-10] MEDS: Bismuth Subsalicylate 262 mg Chew Tab PO SCH ×3 (09:15→18:23)
[2017-11-10] MEDS: Cilostazol 50 mg Tab UD PO SCH ×2 (09:15→18:22)
[2017-11-10] MEDS: Enoxaparin 40 mg Syringe SC SCH (09:21)
--- NOTE | 2017-11-10 10:45 | CP.PCM.PN ---
Subjective - Date & Time of Evaluation Date of Evaluation: 11/10/17 Time of Evaluation: 07:00 - Subjective Subjective: the patient seen and examined Breathing better No diarrhea Complaining of weakness Getting physical therapy Objective - Vital Signs/Intake and Output Vital Signs (last 24 hours): Temp Pulse Resp BP Pulse Ox 98.5 F 88 20 118/73 97 11/10/17 07:59 11/10/17 07:59 11/10/17 07:59 11/10/17 07:59 11/10/17 07:59 Intake and Output: 11/10/17 11/10/17 06:59 18:59 Intake Total 150 Balance 150 - Medications Medications: Current Medications Albuterol/Ipratropium (Duoneb 3 Mg/0.5 Mg (3 Ml) Ud) 3 ml INH RQ6 [facility] Last Admin: 11/10/17 07:07 Dose: 3 ml Bismuth Subsalicylate (Pepto Bismol) 262 mg PO TID [facility] Last Admin: 11/10/17 09:15 Dose: 262 mg Cilostazol (Pletal) 50 mg PO BID [facility] Last Admin: 11/10/17 09:15 Dose: 50 mg Enoxaparin Sodium (Lovenox) 40 mg SC DAILY [facility] Last Admin: 11/10/17 09:21 Dose: 40 mg Ergocalciferol (Drisdol 50,000 Intl Units Cap) 1 cap PO QWK [facility] Last Admin: 11/09/17 11:28 Dose: 1 cap Famotidine (Pepcid) 20 mg PO BID [facility] Last Admin: 11/10/17 09:06 Dose: 20 mg Gabapentin (Neurontin) 300 mg PO TID [facility] Last Admin: 11/10/17 09:06 Dose: 300 mg Guaifenesin (Mucinex La) 600 mg PO BID [facility] Last Admin: 11/10/17 09:06 Dose: 600 mg Levothyroxine Sodium (Synthroid) 75 mcg PO DAILY@0630 [facility] Last Admin: 11/10/17 06:36 Dose: 75 mcg Losartan Potassium (Cozaar) 50 mg PO DAILY [facility] Last Admin: 11/10/17 09:06 Dose: 50 mg Methylprednisolone (Solu-Medrol) 60 mg IV Q12 [facility] Last Admin: 11/10/17 09:21 Dose: 60 mg Fluticasone/Salmeterol (Advair Diskus 250/50) 1 puff INH RQ12 [facility] Last Admin: 11/09/17 19:45 Dose: 1 puff - Labs Labs: 11/08/17 16:11 11/08/17 16:11 PT 12.3 SECONDS (9.7-12.2) H 11/08/17 16:11 INR 1.1 11/08/17 16:11 - Head Exam Head Exam: ATRAUMATIC, NORMOCEPHALIC - ENT Exam ENT Exam: Mucous Membranes Moist - Respiratory Exam Respiratory Exam: Decreased Breath Sounds - Cardiovascular Exam Cardiovascular Exam: REGULAR RHYTHM - GI/Abdominal Exam GI & Abdominal Exam: Soft - Extremities Exam Extremities Exam: Full ROM Assessment and Plan (1) COPD exacerbation Assessment & Plan: taper iv steroids continue nebulizer treatment physical therapy Nutritional evaluation Status: Acute
[2017-11-10] MEDS: Fluticasone-Salmeterol 250-50mcg Diskus INH SCH ×2 (13:45→19:27)
[2017-11-11] MEDS: Albuterol-Ipratrop 3 mg / 0.5 (3 ml) UD INH SCH ×4 (01:47→19:10)
--- NOTE | 2017-11-11 03:56 | CP.PCM.PN ---
Subjective - Date & Time of Evaluation Date of Evaluation: 11/10/17 Time of Evaluation: 18:40 - Subjective Subjective: PT SEEN AND EXAMINED AT BEDSIDE, LESS DIARRHEA, LESS SHORT OF BREATH, SHE HAS COUGH , AFEBRILE Objective - Vital Signs/Intake and Output Vital Signs (last 24 hours): Temp Pulse Resp BP Pulse Ox 98.2 F 74 20 100/60 100 11/11/17 00:00 11/11/17 00:00 11/11/17 00:00 11/11/17 00:00 11/11/17 00:00 - Medications Medications: Current Medications Albuterol/Ipratropium (Duoneb 3 Mg/0.5 Mg (3 Ml) Ud) 3 ml INH RQ6 [facility] Last Admin: 11/11/17 01:47 Dose: Not Given Bismuth Subsalicylate (Pepto Bismol) 262 mg PO TID [facility] Last Admin: 11/10/17 18:23 Dose: 262 mg Cilostazol (Pletal) 50 mg PO BID [facility] Last Admin: 11/10/17 18:22 Dose: 50 mg Enoxaparin Sodium (Lovenox) 40 mg SC DAILY [facility] Last Admin: 11/10/17 09:21 Dose: 40 mg Ergocalciferol (Drisdol 50,000 Intl Units Cap) 1 cap PO QWK [facility] Last Admin: 11/09/17 11:28 Dose: 1 cap Famotidine (Pepcid) 20 mg PO BID [facility] Last Admin: 11/10/17 18:22 Dose: 20 mg Gabapentin (Neurontin) 300 mg PO TID [facility] Last Admin: 11/10/17 18:22 Dose: 300 mg Guaifenesin (Mucinex La) 600 mg PO BID [facility] Last Admin: 11/10/17 18:21 Dose: 600 mg Levothyroxine Sodium (Synthroid) 75 mcg PO DAILY@0630 [facility] Last Admin: 11/10/17 06:36 Dose: 75 mcg Losartan Potassium (Cozaar) 50 mg PO DAILY [facility] Last Admin: 11/10/17 09:06 Dose: 50 mg Methylprednisolone (Solu-Medrol) 60 mg IV Q12 [facility] Last Admin: 11/10/17 21:11 Dose: 60 mg Fluticasone/Salmeterol (Advair Diskus 250/50) 1 puff INH RQ12 [facility] Last Admin: 11/10/17 19:27 Dose: 1 puff - Labs Labs: 11/08/17 16:11 11/08/17 16:11 PT 12.3 SECONDS (9.7-12.2) H 11/08/17 16:11 INR 1.1 11/08/17 16:11 - Constitutional Appears: No Acute Distress - Head Exam Head Exam: ATRAUMATIC, NORMAL INSPECTION, NORMOCEPHALIC - Eye Exam Eye Exam: EOMI, Normal appearance, PERRL Pupil Exam: NORMAL ACCOMODATION, PERRL - Respiratory Exam Respiratory Exam: Clear to Ausculation Bilateral, NORMAL BREATHING PATTERN - Cardiovascular Exam Cardiovascular Exam: REGULAR RHYTHM, +S1, +S2. absent: Murmur - GI/Abdominal Exam GI & Abdominal Exam: Soft, Normal Bowel Sounds. absent: Tenderness - Rectal Exam Rectal Exam: Deferred - Extremities Exam Extremities Exam: Full ROM, Normal Capillary Refill, Normal Inspection. 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
[2017-11-11] MEDS: Levothyroxine 75 MCG TAB PO SCH (05:57)
[2017-11-11 07:57] LABS: BLOOD UREA NITROGEN 27 mg/dL (7-17); CALCIUM 8.8 mg/dl (8.6-10.4); GFR AFRICAN-AMERICAN > 60; GFR NON-AFRICAN AMERICAN > 60
[2017-11-11] MEDS: Fluticasone-Salmeterol 250-50mcg Diskus INH SCH ×2 (08:37→19:09)
[2017-11-11] MEDS: guaiFENesin 600 mg ER Tab PO SCH ×2 (09:23→18:15)
[2017-11-11] MEDS: Enoxaparin 40 mg Syringe SC SCH (09:24)
[2017-11-11] MEDS: Bismuth Subsalicylate 262 mg Chew Tab PO SCH ×3 (09:25→18:17)
[2017-11-11] MEDS: Cilostazol 50 mg Tab UD PO SCH ×2 (09:27→18:17)
[2017-11-11] MEDS ORDERED: Pneumococcal 23-Valent Vaccine IM ONE (10:00)
--- NOTE | 2017-11-11 10:40 | CP.PCM.PN ---
Subjective - Date & Time of Evaluation Date of Evaluation: 11/11/17 Time of Evaluation: 10:36 - Subjective Subjective: Pulmonary Follow up Covering Dr. Greer The patient was Seen/interviewed and examined by me at the bedside, Medical records reviewed and Management issues were discussed and formulated with the house staff. Events reviewed Patient lying in bed comfortably. Pt AAO x3. Alert, follows some commands Patient states dyspnea on minimal exertion, improves with supplemental oxygen Had an episode of desaturation this morning when she walked to the bathroom, sat down to 86%, now back up to 92% Patien on currently on 3L nasal cannula Stat CXR ordered Patient did not experienced episodes of chest pain. I&O reviewed Afebrile, NSR on the monitor, AM Labs reviewed, Leucocytosis of 11.4, mildly elevated renal function Complaining of weakness Getting physical therapy Objective - Vital Signs/Intake and Output Vital Signs (last 24 hours): Temp Pulse Resp BP Pulse Ox 98.2 F 74 20 100/60 100 11/11/17 00:00 11/11/17 00:00 11/11/17 00:00 11/11/17 00:00 11/11/17 00:00 Intake and Output: 11/11/17 11/11/17 06:59 18:59 Intake Total 60 Balance 60 - Medications Medications: Current Medications Albuterol/Ipratropium (Duoneb 3 Mg/0.5 Mg (3 Ml) Ud) 3 ml INH RQ6 [facility] Last Admin: 11/11/17 07:27 Dose: 3 ml Bismuth Subsalicylate (Pepto Bismol) 262 mg PO TID [facility] Last Admin: 11/11/17 09:25 Dose: Not Given Cilostazol (Pletal) 50 mg PO BID [facility] Last Admin: 11/11/17 09:27 Dose: 50 mg Enoxaparin Sodium (Lovenox) 40 mg SC DAILY [facility] Last Admin: 11/11/17 09:24 Dose: 40 mg Ergocalciferol (Drisdol 50,000 Intl Units Cap) 1 cap PO QWK [facility] Last Admin: 11/09/17 11:28 Dose: 1 cap Famotidine (Pepcid) 20 mg PO BID [facility] Last Admin: 11/11/17 09:23 Dose: 20 mg Gabapentin (Neurontin) 300 mg PO TID [facility] Last Admin: 11/11/17 09:23 Dose: 300 mg Guaifenesin (Mucinex La) 600 mg PO BID [facility] Last Admin: 11/11/17 09:23 Dose: 600 mg Levothyroxine Sodium (Synthroid) 75 mcg PO DAILY@0630 [facility] Last Admin: 11/11/17 05:57 Dose: 75 mcg Losartan Potassium (Cozaar) 50 mg PO DAILY [facility] Last Admin: 11/11/17 09:23 Dose: 50 mg Methylprednisolone (Solu-Medrol) 60 mg IV Q12 [facility] Last Admin: 11/11/17 09:25 Dose: 60 mg Fluticasone/Salmeterol (Advair Diskus 250/50) 1 puff INH RQ12 [facility] Last Admin: 11/10/17 19:27 Dose: 1 puff - Labs Labs: 11/08/17 16:11 11/11/17 07:12 PT 12.3 SECONDS (9.7-12.2) H 11/08/17 16:11 INR 1.1 11/08/17 16:11 - Constitutional Appears: Well, Non-toxic, No Acute Distress - Eye Exam Eye Exam: EOMI, Normal appearance. absent: Conjunctival injection Pupil Exam: NORMAL ACCOMODATION, PERRL - Neck Exam Neck Exam: Full ROM, Normal Inspection. absent: Lymphadenopathy, Tenderness, Thyromegaly - Respiratory Exam Respiratory Exam: Decreased Breath Sounds, Prolonged Expiratory Phase, Rhonchi. absent: Accessory Muscle Use, Chest Wall Tenderness, Clear to Ausculation Bilateral, Respiratory Distress, Stridor - Cardiovascular Exam Cardiovascular Exam: REGULAR RHYTHM, RRR, +S1, +S2. absent: Bradycardia, Tachycardia, Clicks, JVD, Murmur - GI/Abdominal Exam GI & Abdominal Exam: Soft, Normal Bowel Sounds. absent: Bruit, Distended, Firm , Guarding, Rigid - Back Exam Back Exam: absent: CVA tenderness (L), CVA tenderness (R) - Neurological Exam Neurological Exam: Alert, Altered, Awake, CN II-XII Intact, Motor Sensory Deficit, Normal Gait, Oriented x3 Assessment and Plan (1) COPD exacerbation Status: Acute (2) Diastolic dysfunction Status: Acute (3) Dyspnea Status: Acute - Assessment and Plan (Free Text) Assessment: Clinically and respiratory slowly improving Afebrile, Less Dyspnea, No chest pain Leucocytosis Continue Off antibiotics Had an episode of desaturation this morning when she walked to the bathroom, sat down to 86%, now up to 92% Continue Solumedrol, Keep the same dose of 60 mg Q 12H Consider taprer down to 40 mg Q 12H tomorrow Continue nebulizer treatment Followup chest x-ray on monday Continue Fluticasone/Salmeterol (Advair Diskus 250/50) 1 puff INH RQ12 [facility] Strict I&O Supplemental oxygen to keep saturation >92% Patien on currently on 3L nasal cannula GI/DVT PPX Stat CXR ordered
[2017-11-11] MEDS ORDERED: MethylPREDNISolone 40 mg Vial IV SCH (10:46)
--- NOTE | 2017-11-11 12:30 | RAD ---
PROCEDURE: CHEST RADIOGRAPH, 1 VIEW HISTORY: COPD/CHF COMPARISON: Portable chest 11/08/2017. FINDINGS: LUNGS: No interval infiltrates bilaterally. Hyperinflation again in question. Calcified granulomata or lymph nodes are again seen the left greater than right hilar regions. PLEURA: No pneumothorax or pleural fluid seen. CARDIOVASCULAR: Normal. OSSEOUS STRUCTURES: No significant abnormalities. VISUALIZED UPPER ABDOMEN: Normal. OTHER FINDINGS: None. IMPRESSION: Potential COPD. No acute cardiopulmonary disease appreciable.
[2017-11-12] MEDS: Albuterol-Ipratrop 3 mg / 0.5 (3 ml) UD INH SCH ×4 (01:09→19:06)
--- NOTE | 2017-11-12 06:01 | CP.PCM.PN ---
Subjective - Date & Time of Evaluation Date of Evaluation: 11/11/17 Time of Evaluation: 19:45 - Subjective Subjective: pt is seen and examined, lesss hort of breath, is anxious,c/o headache Objective - Vital Signs/Intake and Output Vital Signs (last 24 hours): Temp Pulse Resp BP Pulse Ox 98.3 F 81 20 118/63 100 11/11/17 23:25 11/11/17 23:25 11/11/17 23:25 11/11/17 23:25 11/11/17 23:25 - Medications Medications: Current Medications Albuterol/Ipratropium (Duoneb 3 Mg/0.5 Mg (3 Ml) Ud) 3 ml INH RQ6 [facility] Last Admin: 11/12/17 01:09 Dose: Not Given Bismuth Subsalicylate (Pepto Bismol) 262 mg PO TID [facility] Last Admin: 11/11/17 18:17 Dose: 262 mg Cilostazol (Pletal) 50 mg PO BID [facility] Last Admin: 11/11/17 18:17 Dose: 50 mg Enoxaparin Sodium (Lovenox) 40 mg SC DAILY [facility] Last Admin: 11/11/17 09:24 Dose: 40 mg Ergocalciferol (Drisdol 50,000 Intl Units Cap) 1 cap PO QWK [facility] Last Admin: 11/09/17 11:28 Dose: 1 cap Famotidine (Pepcid) 20 mg PO BID [facility] Last Admin: 11/11/17 18:15 Dose: 20 mg Gabapentin (Neurontin) 300 mg PO TID [facility] Last Admin: 11/11/17 18:15 Dose: 300 mg Guaifenesin (Mucinex La) 600 mg PO BID [facility] Last Admin: 11/11/17 18:15 Dose: 600 mg Levothyroxine Sodium (Synthroid) 75 mcg PO DAILY@0630 [facility] Last Admin: 11/11/17 05:57 Dose: 75 mcg Lorazepam (Ativan) 0.5 mg PO BID [facility] Losartan Potassium (Cozaar) 50 mg PO DAILY [facility] Last Admin: 11/11/17 09:23 Dose: 50 mg Methylprednisolone (Solu-Medrol) 30 mg IVP Q12 [facility] Fluticasone/Salmeterol (Advair Diskus 250/50) 1 puff INH RQ12 [facility] Last Admin: 11/11/17 19:09 Dose: 1 puff - Labs Labs: 11/08/17 16:11 11/11/17 07:12 PT 12.3 SECONDS (9.7-12.2) H 11/08/17 16:11 INR 1.1 11/08/17 16:11 - Constitutional Appears: No Acute Distress - Head Exam Head Exam: ATRAUMATIC, NORMAL INSPECTION, NORMOCEPHALIC - Eye Exam Eye Exam: EOMI, Normal appearance, PERRL Pupil Exam: NORMAL ACCOMODATION, PERRL - Respiratory Exam Respiratory Exam: Decreased Breath Sounds, Rhonchi, Wheezes - Cardiovascular Exam Cardiovascular Exam: REGULAR RHYTHM, +S1, +S2. absent: Murmur - GI/Abdominal Exam GI & Abdominal Exam: Soft, Normal Bowel Sounds. absent: Tenderness - Neurological Exam Neurological Exam: Alert, Awake, CN II-XII Intact, Normal Gait, Oriented x3 - Psychiatric Exam Psychiatric exam: Anxious Assessment and Plan (1) Colitis Status: Acute (2) COPD exacerbation Assessment & Plan: continue oxygen, nebulizer salmedrol Status: Acute (3) Diarrhea Status: Acute (4) Anxiety Status: Acute (5) HTN (hypertension) Status: Acute (6) PAD (peripheral artery disease) Status: Acute
--- NOTE | 2017-11-12 06:06 | CP.PCM.PN ---
Subjective - Date & Time of Evaluation Date of Evaluation: 11/12/17 Time of Evaluation: 09:45 - Subjective Subjective: Patient seen and examined at bedside today, Patient resting comfortably in bed in no distress.still c/o diarrhea and sob on exertion denies any chest pain, nausea, vomitting Objective - Vital Signs/Intake and Output Vital Signs (last 24 hours): Temp Pulse Resp BP Pulse Ox 98.3 F 81 20 118/63 100 11/11/17 23:25 11/11/17 23:25 11/11/17 23:25 11/11/17 23:25 11/11/17 23:25 - Medications Medications: Current Medications Albuterol/Ipratropium (Duoneb 3 Mg/0.5 Mg (3 Ml) Ud) 3 ml INH RQ6 [facility] Last Admin: 11/12/17 01:09 Dose: Not Given Bismuth Subsalicylate (Pepto Bismol) 262 mg PO TID [facility] Last Admin: 11/11/17 18:17 Dose: 262 mg Cilostazol (Pletal) 50 mg PO BID [facility] Last Admin: 11/11/17 18:17 Dose: 50 mg Enoxaparin Sodium (Lovenox) 40 mg SC DAILY [facility] Last Admin: 11/11/17 09:24 Dose: 40 mg Ergocalciferol (Drisdol 50,000 Intl Units Cap) 1 cap PO QWK [facility] Last Admin: 11/09/17 11:28 Dose: 1 cap Famotidine (Pepcid) 20 mg PO BID [facility] Last Admin: 11/11/17 18:15 Dose: 20 mg Gabapentin (Neurontin) 300 mg PO TID [facility] Last Admin: 11/11/17 18:15 Dose: 300 mg Guaifenesin (Mucinex La) 600 mg PO BID [facility] Last Admin: 11/11/17 18:15 Dose: 600 mg Levothyroxine Sodium (Synthroid) 75 mcg PO DAILY@0630 [facility] Last Admin: 11/11/17 05:57 Dose: 75 mcg Lorazepam (Ativan) 0.5 mg PO BID [facility] Losartan Potassium (Cozaar) 50 mg PO DAILY [facility] Last Admin: 11/11/17 09:23 Dose: 50 mg Methylprednisolone (Solu-Medrol) 30 mg IVP Q12 [facility] Fluticasone/Salmeterol (Advair Diskus 250/50) 1 puff INH RQ12 [facility] Last Admin: 11/11/17 19:09 Dose: 1 puff - Labs Labs: 11/08/17 16:11 11/11/17 07:12 PT 12.3 SECONDS (9.7-12.2) H 11/08/17 16:11 INR 1.1 11/08/17 16:11 - Constitutional Appears: No Acute Distress - Head Exam Head Exam: ATRAUMATIC, NORMAL INSPECTION, NORMOCEPHALIC - Eye Exam Eye Exam: EOMI, Normal appearance, PERRL Pupil Exam: NORMAL ACCOMODATION, PERRL - Respiratory Exam Respiratory Exam: Decreased Breath Sounds, Wheezes - Cardiovascular Exam Cardiovascular Exam: REGULAR RHYTHM, +S1, +S2. absent: Murmur - GI/Abdominal Exam GI & Abdominal Exam: Soft, Normal Bowel Sounds. absent: Tenderness Assessment and Plan (1) Colitis Status: Acute (2) COPD exacerbation Status: Acute (3) Diarrhea Status: Acute (4) Anxiety Status: Acute (5) HTN (hypertension) Status: Acute (6) PAD (peripheral artery disease) Status: Acute
[2017-11-12] MEDS: Levothyroxine 75 MCG TAB PO SCH (06:07)
[2017-11-12] MEDS: Fluticasone-Salmeterol 250-50mcg Diskus INH SCH ×2 (07:28→19:05)
[2017-11-12] MEDS: guaiFENesin 600 mg ER Tab PO SCH ×2 (09:20→17:53)
[2017-11-12] MEDS: Enoxaparin 40 mg Syringe SC SCH (09:20)
[2017-11-12] MEDS: Bismuth Subsalicylate 262 mg Chew Tab PO SCH ×3 (09:21→18:00)
[2017-11-12] MEDS: MethylPREDNISolone 40 mg Vial IVP SCH ×2 (09:21→21:15)
[2017-11-12] MEDS: Cilostazol 50 mg Tab UD PO SCH ×2 (09:29→17:53)
--- NOTE | 2017-11-12 20:13 | CP.PCM.PN ---
Subjective - Date & Time of Evaluation Date of Evaluation: 11/12/17 Time of Evaluation: 20:09 - Subjective Subjective: Pulmonary Follow up Covering Dr. Gerer The patient was Seen/interviewed and examined by me at the bedside, Events reviewed Pt AAO x3. Alert, follows commands Patient lying in bed comfortably at rest but gets dyspnic with minimal exertion. Patient states dyspnea improved, feels better than yesterday. Remains on supplemental oxygen with 3L nasal cannula No episodes of desaturation today and denies chest pain. Complaining of weakness, Pt on physical therapy I&O reviewed Afebrile, NSR on the monitor, Labs reviewed, mild Leucocytosis of 11.4 (Pt on steroids), mildly elevated renal function 11/11 CXR: no acute cardiopulmonary pathology Objective - Vital Signs/Intake and Output Vital Signs (last 24 hours): Temp Pulse Resp BP Pulse Ox 98.2 F 105 H 20 119/69 100 11/12/17 16:00 11/12/17 16:00 11/12/17 16:00 11/12/17 16:00 11/12/17 16:00 - Medications Medications: Current Medications Albuterol/Ipratropium (Duoneb 3 Mg/0.5 Mg (3 Ml) Ud) 3 ml INH RQ6 [facility] Last Admin: 11/12/17 19:06 Dose: Not Given Bismuth Subsalicylate (Pepto Bismol) 262 mg PO TID [facility] Last Admin: 11/12/17 13:18 Dose: Not Given Cilostazol (Pletal) 50 mg PO BID [facility] Last Admin: 11/12/17 17:53 Dose: 50 mg Enoxaparin Sodium (Lovenox) 40 mg SC DAILY [facility] Last Admin: 11/12/17 09:20 Dose: 40 mg Ergocalciferol (Drisdol 50,000 Intl Units Cap) 1 cap PO QWK [facility] Last Admin: 11/09/17 11:28 Dose: 1 cap Famotidine (Pepcid) 20 mg PO BID [facility] Last Admin: 11/12/17 17:53 Dose: 20 mg Gabapentin (Neurontin) 300 mg PO TID [facility] Last Admin: 11/12/17 17:53 Dose: 300 mg Guaifenesin (Mucinex La) 600 mg PO BID [facility] Last Admin: 11/12/17 17:53 Dose: 600 mg Levothyroxine Sodium (Synthroid) 75 mcg PO DAILY@0630 [facility] Last Admin: 11/12/17 06:07 Dose: 75 mcg Lorazepam (Ativan) 0.5 mg PO BID [facility] Last Admin: 11/12/17 17:55 Dose: 0.5 mg Losartan Potassium (Cozaar) 50 mg PO DAILY [facility] Last Admin: 11/12/17 09:20 Dose: 50 mg Methylprednisolone (Solu-Medrol) 30 mg IVP Q12 [facility] Last Admin: 11/12/17 09:21 Dose: 30 mg Fluticasone/Salmeterol (Advair Diskus 250/50) 1 puff INH RQ12 [facility] Last Admin: 11/12/17 19:05 Dose: Not Given - Labs Labs: 11/08/17 16:11 11/11/17 07:12 PT 12.3 SECONDS (9.7-12.2) H 11/08/17 16:11 INR 1.1 11/08/17 16:11 - Constitutional Appears: Well, No Acute Distress - Eye Exam Eye Exam: EOMI. absent: Conjunctival injection - Neck Exam Neck Exam: Full ROM, Normal Inspection. absent: Lymphadenopathy, Tenderness, Thyromegaly - Respiratory Exam Respiratory Exam: Decreased Breath Sounds, Rhonchi. absent: Accessory Muscle Use, Chest Wall Tenderness, Clear to Ausculation Bilateral, Wheezes, Respiratory Distress, Stridor - Cardiovascular Exam Cardiovascular Exam: REGULAR RHYTHM, RRR, +S1, +S2. absent: JVD - GI/Abdominal Exam GI & Abdominal Exam: Soft, Normal Bowel Sounds. absent: Distended, Firm, Guarding, Rigid - Back Exam Back Exam: absent: CVA tenderness (L), CVA tenderness (R) - Neurological Exam Neurological Exam: Alert, Awake, CN II-XII Intact, Motor Sensory Deficit, Normal Gait, Oriented x3 Assessment and Plan (1) COPD exacerbation Status: Acute (2) Diastolic dysfunction Status: Acute (3) Dyspnea Status: Acute - Assessment and Plan (Free Text) Assessment: Clinically and respiratory slowly improving Afebrile, Less Dyspnea, No chest pain Leucocytosis Continue Off antibiotics Had an episode of desaturation this morning when she walked to the bathroom, sat down to 86%, now up to 92% Continue Solumedrol, Keep the same dose of 60 mg Q 12H Consider taprer down to 40 mg Q 12H tomorrow Continue Albuterol/Ipratropium (Duoneb) INH RQ6 [facility] Followup chest x-ray on monday Continue Fluticasone/Salmeterol (Advair Diskus 250/50) 1 puff INH RQ12 [facility] Strict I&O Supplemental oxygen to keep saturation >92% Patien on currently on 3L nasal cannula GI/DVT PPX
[2017-11-13] MEDS: Albuterol-Ipratrop 3 mg / 0.5 (3 ml) UD INH SCH ×4 (01:42→20:19)
[2017-11-13] MEDS: Levothyroxine 75 MCG TAB PO SCH (05:30)
[2017-11-13] MEDS: Fluticasone-Salmeterol 250-50mcg Diskus INH SCH ×2 (07:48→20:19)
[2017-11-13] MEDS: MethylPREDNISolone 40 mg Vial IVP SCH (09:29)
[2017-11-13] MEDS: Enoxaparin 40 mg Syringe SC SCH (09:29)
[2017-11-13] MEDS: Bismuth Subsalicylate 262 mg Chew Tab PO SCH (09:34)
[2017-11-13] MEDS: guaiFENesin 600 mg ER Tab PO SCH ×2 (09:34→18:06)
[2017-11-13] MEDS: Cilostazol 50 mg Tab UD PO SCH ×2 (09:34→18:06)
--- NOTE | 2017-11-13 12:14 | CP.PCM.PN ---
Subjective - Date & Time of Evaluation Date of Evaluation: 11/13/17 Time of Evaluation: 08:00 - Subjective Subjective: the patient seen and examined Dyspnea on minimal exertion Complaining of constipation Afebrile No chest pain Objective - Vital Signs/Intake and Output Vital Signs (last 24 hours): Temp Pulse Resp BP Pulse Ox 97.9 F 86 20 117/71 98 11/13/17 08:20 11/13/17 08:20 11/13/17 08:20 11/13/17 08:20 11/13/17 08:20 Intake and Output: 11/13/17 11/13/17 06:59 18:59 Intake Total 200 Balance 200 - Medications Medications: Current Medications Albuterol/Ipratropium (Duoneb 3 Mg/0.5 Mg (3 Ml) Ud) 3 ml INH RQ6 [facility] Last Admin: 11/13/17 07:48 Dose: 3 ml Cilostazol (Pletal) 50 mg PO BID [facility] Last Admin: 11/13/17 09:34 Dose: 50 mg Enoxaparin Sodium (Lovenox) 40 mg SC DAILY [facility] Last Admin: 11/13/17 09:29 Dose: 40 mg Ergocalciferol (Drisdol 50,000 Intl Units Cap) 1 cap PO QWK [facility] Last Admin: 11/09/17 11:28 Dose: 1 cap Famotidine (Pepcid) 20 mg PO BID [facility] Last Admin: 11/13/17 09:28 Dose: 20 mg Gabapentin (Neurontin) 300 mg PO TID [facility] Last Admin: 11/13/17 09:28 Dose: 300 mg Guaifenesin (Mucinex La) 600 mg PO BID [facility] Last Admin: 11/13/17 09:34 Dose: 600 mg Levothyroxine Sodium (Synthroid) 75 mcg PO DAILY@0630 [facility] Last Admin: 11/13/17 05:30 Dose: 75 mcg Lorazepam (Ativan) 0.5 mg PO BID [facility] Last Admin: 11/13/17 09:29 Dose: 0.5 mg Losartan Potassium (Cozaar) 50 mg PO DAILY [facility] Last Admin: 11/13/17 09:28 Dose: 50 mg Methylprednisolone (Solu-Medrol) 30 mg IVP DAILY [facility] Fluticasone/Salmeterol (Advair Diskus 250/50) 1 puff INH RQ12 [facility] Last Admin: 11/13/17 07:48 Dose: 1 puff - Labs Labs: 11/08/17 16:11 11/11/17 07:12 PT 12.3 SECONDS (9.7-12.2) H 11/08/17 16:11 INR 1.1 11/08/17 16:11 Assessment and Plan (1) COPD exacerbation Status: Acute
--- NOTE | 2017-11-13 22:17 | CP.PCM.PN ---
Subjective - Date & Time of Evaluation Date of Evaluation: 11/13/17 Time of Evaluation: 18:00 - Subjective Subjective: Pt is seen and examined, she is not wheezing alot, no resp distress, she c/o constipation, no nausea, vomitting Objective - Vital Signs/Intake and Output Vital Signs (last 24 hours): Temp Pulse Resp BP Pulse Ox 97.1 F L 107 H 20 128/67 97 11/13/17 16:00 11/13/17 16:00 11/13/17 16:00 11/13/17 16:00 11/13/17 16:00 Intake and Output: 11/13/17 11/14/17 18:59 06:59 Intake Total 400 Balance 400 - Medications Medications: Current Medications Cilostazol (Pletal) 50 mg PO BID [facility] Last Admin: 11/13/17 18:06 Dose: 50 mg Enoxaparin Sodium (Lovenox) 40 mg SC DAILY [facility] Last Admin: 11/13/17 09:29 Dose: 40 mg Ergocalciferol (Drisdol 50,000 Intl Units Cap) 1 cap PO QWK [facility] Last Admin: 11/09/17 11:28 Dose: 1 cap Famotidine (Pepcid) 20 mg PO BID [facility] Last Admin: 11/13/17 18:07 Dose: 20 mg Gabapentin (Neurontin) 300 mg PO TID [facility] Last Admin: 11/13/17 18:07 Dose: 300 mg Guaifenesin (Mucinex La) 600 mg PO BID [facility] Last Admin: 11/13/17 18:06 Dose: 600 mg Levothyroxine Sodium (Synthroid) 75 mcg PO DAILY@0630 [facility] Last Admin: 11/13/17 05:30 Dose: 75 mcg Lorazepam (Ativan) 0.5 mg PO BID [facility] Last Admin: 11/13/17 18:07 Dose: 0.5 mg Losartan Potassium (Cozaar) 50 mg PO DAILY [facility] Last Admin: 11/13/17 09:28 Dose: 50 mg Methylprednisolone (Solu-Medrol) 30 mg IVP DAILY [facility] Fluticasone/Salmeterol (Advair Diskus 250/50) 1 puff INH RQ12 [facility] Last Admin: 11/13/17 20:19 Dose: Not Given - Labs Labs: 11/08/17 16:11 11/11/17 07:12 PT 12.3 SECONDS (9.7-12.2) H 11/08/17 16:11 INR 1.1 11/08/17 16:11 Assessment and Plan (1) Colitis Status: Acute (2) COPD exacerbation Status: Acute (3) Diarrhea Status: Acute (4) Anxiety Status: Acute (5) HTN (hypertension) Status: Acute (6) PAD (peripheral artery disease) Status: Acute - Assessment and Plan (Free Text) Plan: nebulizer oxygen PRN ATivan eound the clock
[2017-11-14] MEDS: Levothyroxine 75 MCG TAB PO SCH (05:45)
[2017-11-14] MEDS: Fluticasone-Salmeterol 250-50mcg Diskus INH SCH (07:55)
[2017-11-14] MEDS ORDERED: MethylPREDNISolone 40 mg Vial IVP SCH (10:00)
[2017-11-14] MEDS: Enoxaparin 40 mg Syringe SC SCH (10:04)
[2017-11-14] MEDS: guaiFENesin 600 mg ER Tab PO SCH ×2 (10:04→17:30)
[2017-11-14] MEDS: Cilostazol 50 mg Tab UD PO SCH ×2 (10:09→17:30)
[2017-11-14] MEDS ORDERED: Bisacodyl 5mg EC Tab PO ONE (11:30)
[2017-11-14] MEDS ORDERED: Albuterol-Ipratrop 3 mg / 0.5 (3 ml) UD INH STA (14:55)
--- NOTE | 2017-11-14 15:16 | CP.PCM.PN ---
Subjective - Date & Time of Evaluation Date of Evaluation: 11/14/17 Time of Evaluation: 10:40 - Subjective Subjective: Reason for Consult - COPD Patient seen and examined in bed. Patient pleasant, conversant and eager to go home. Patient denies shortness of breath, coughing, wheezing and chest pain. Patient saturating well at 98% on nasal cannula. 1. COPD Most recent x-ray on 11/11 shows no acute findings. Patient clinically stable; Follow-up with outpatient with pulmonology. Objective - Vital Signs/Intake and Output Vital Signs (last 24 hours): Temp Pulse Resp BP Pulse Ox 97.5 F L 85 20 110/71 98 11/14/17 08:00 11/14/17 08:00 11/14/17 08:00 11/14/17 08:00 11/14/17 08:00 Intake and Output: 11/14/17 11/14/17 06:59 18:59 Intake Total 200 Balance 200 - Medications Medications: Current Medications Albuterol/Ipratropium (Duoneb 3 Mg/0.5 Mg (3 Ml) Ud) 3 ml INH RQ6 [facility] Cilostazol (Pletal) 50 mg PO BID [facility] Last Admin: 11/14/17 10:09 Dose: 50 mg Enoxaparin Sodium (Lovenox) 40 mg SC DAILY [facility] Last Admin: 11/14/17 10:04 Dose: 40 mg Ergocalciferol (Drisdol 50,000 Intl Units Cap) 1 cap PO QWK [facility] Last Admin: 11/09/17 11:28 Dose: 1 cap Famotidine (Pepcid) 20 mg PO BID [facility] Last Admin: 11/14/17 10:03 Dose: 20 mg Gabapentin (Neurontin) 300 mg PO TID [facility] Last Admin: 11/14/17 13:11 Dose: 300 mg Guaifenesin (Mucinex La) 600 mg PO BID [facility] Last Admin: 11/14/17 10:04 Dose: 600 mg Levothyroxine Sodium (Synthroid) 75 mcg PO DAILY@0630 [facility] Last Admin: 11/14/17 05:45 Dose: 75 mcg Lorazepam (Ativan) 0.5 mg PO BID [facility] Last Admin: 11/14/17 10:04 Dose: 0.5 mg Losartan Potassium (Cozaar) 50 mg PO DAILY [facility] Last Admin: 11/14/17 10:03 Dose: 50 mg Methylprednisolone (Solu-Medrol) 30 mg IVP DAILY [facility] Last Admin: 11/14/17 10:04 Dose: 30 mg Fluticasone/Salmeterol (Advair Diskus 250/50) 1 puff INH RQ12 [facility] Last Admin: 11/14/17 07:55 Dose: 1 puff - Labs Labs: 11/08/17 16:11 11/11/17 07:12 PT 12.3 SECONDS (9.7-12.2) H 11/08/17 16:11 INR 1.1 11/08/17 16:11 Assessment and Plan (1) COPD exacerbation Status: Acute
[2017-11-14 16:26] VITALS: BP 133/65; PULSE 108; TEMP 98.4; O2SAT 99
--- NOTE | 2017-11-14 16:54 | CP.PCM.PN ---
Subjective - Date & Time of Evaluation Date of Evaluation: 11/14/17 Time of Evaluation: 16:54 - Subjective Subjective: awake, alert, no sob or chest pains noted. Objective - Vital Signs/Intake and Output Vital Signs (last 24 hours): Temp Pulse Resp BP Pulse Ox 98.4 F 108 H 20 133/65 99 11/14/17 16:00 11/14/17 16:00 11/14/17 16:00 11/14/17 16:00 11/14/17 16:00 Intake and Output: 11/14/17 11/14/17 06:59 18:59 Intake Total 200 Balance 200 - Medications Medications: Current Medications Albuterol/Ipratropium (Duoneb 3 Mg/0.5 Mg (3 Ml) Ud) 3 ml INH RQ6 [facility] Cilostazol (Pletal) 50 mg PO BID [facility] Last Admin: 11/14/17 10:09 Dose: 50 mg Enoxaparin Sodium (Lovenox) 40 mg SC DAILY [facility] Last Admin: 11/14/17 10:04 Dose: 40 mg Ergocalciferol (Drisdol 50,000 Intl Units Cap) 1 cap PO QWK [facility] Last Admin: 11/09/17 11:28 Dose: 1 cap Famotidine (Pepcid) 20 mg PO BID [facility] Last Admin: 11/14/17 10:03 Dose: 20 mg Gabapentin (Neurontin) 300 mg PO TID [facility] Last Admin: 11/14/17 13:11 Dose: 300 mg Guaifenesin (Mucinex La) 600 mg PO BID [facility] Last Admin: 11/14/17 10:04 Dose: 600 mg Levothyroxine Sodium (Synthroid) 75 mcg PO DAILY@0630 [facility] Last Admin: 11/14/17 05:45 Dose: 75 mcg Lorazepam (Ativan) 0.5 mg PO BID [facility] Last Admin: 11/14/17 10:04 Dose: 0.5 mg Losartan Potassium (Cozaar) 50 mg PO DAILY [facility] Last Admin: 11/14/17 10:03 Dose: 50 mg Methylprednisolone (Solu-Medrol) 30 mg IVP DAILY [facility] Last Admin: 11/14/17 10:04 Dose: 30 mg Fluticasone/Salmeterol (Advair Diskus 250/50) 1 puff INH RQ12 [facility] Last Admin: 11/14/17 07:55 Dose: 1 puff - Labs Labs: 11/08/17 16:11 11/11/17 07:12 PT 12.3 SECONDS (9.7-12.2) H 11/08/17 16:11 INR 1.1 11/08/17 16:11 Assessment and Plan - Assessment and Plan (Free Text) Assessment: Patient is seen and examined. Alert, awake, no sob or chest pains. Diarrhea is getting better. Discussed with DR Patel, plan to discharge home with home care , home PT, patient agreed. Advised to follow up in the office in 1 week. Will ask caser in to follow up.
--- NOTE | 2017-11-14 17:17 | PCM.HF ---
Heart Failure Core Measure - Heart Failure Ejection Fraction: 40 % or Greater (EF 75%) Contraindication/Reason for not providing: on arb Beta-Dariela Prescribed: None Contraindication/Reason for not providing: COPD Angiotensin II Receptor Dariela Prescribed: Yes AnticoagulationTherapy for Atrial Fibrillation/Atrialflutter: No Implantable Cardioverter Defibrillator Therapy: No Contraindication/Reason for not providing: EF >40%
[2017-11-14] MEDS ORDERED: Albuterol-Ipratrop 3 mg / 0.5 (3 ml) UD INH SCH (20:00)
--- NOTE | 2017-11-14 22:47 | CP.PCM.DIS ---
Provider - Provider Date of Admission: 11/08/17 17:13 Attending physician: Lex Patel MD Time Spent in preparation of Discharge (in minutes): 44 Diagnosis - Discharge Diagnosis (1) Colitis Status: Acute (2) COPD exacerbation Status: Acute (3) Diarrhea Status: Acute (4) Anxiety Status: Acute (5) HTN (hypertension) Status: Acute (6) PAD (peripheral artery disease) Status: Acute Hospital Course - Lab Results Lab Results: Micro Results 11/12/17 06:37 Urine Urine Culture - Final 50-100,000 CFU/ML. MULTIPLE SPECIES. SUGGEST REPEAT SPECIMEN. Most Recent Lab Values WBC 11.4 K/uL (4.8-10.8) H 11/08/17 16:11 RBC 4.15 Mil/uL (3.80-5.20) 11/08/17 16:11 Hgb 13.2 g/dL (11.0-16.0) 11/08/17 16:11 Hct 40.2 % (34.0-47.0) 11/08/17 16:11 MCV 96.8 fL (81.0-99.0) 11/08/17 16:11 MCH 31.7 pg (27.0-31.0) H 11/08/17 16:11 MCHC 32.8 g/dL (33.0-37.0) L 11/08/17 16:11 RDW 15.5 % (11.5-14.5) H 11/08/17 16:11 Plt Count 275 K/uL (130-400) 11/08/17 16:11 MPV 7.3 fL (7.2-11.7) 11/08/17 16:11 Neut % (Auto) 84.5 % (50.0-75.0) H 11/08/17 16:11 Lymph % (Auto) 5.8 % (20.0-40.0) L 11/08/17 16:11 [place] % (Auto) 7.0 % (0.0-10.0) 11/08/17 16:11 Eos % (Auto) 2.1 % (0.0-4.0) 11/08/17 16:11 Baso % (Auto) 0.6 % (0.0-2.0) 11/08/17 16:11 Neut # (Auto) 9.6 K/uL (1.8-7.0) H 11/08/17 16:11 Lymph # (Auto) 0.7 K/uL (1.0-4.3) L 11/08/17 16:11 [place] # (Auto) 0.8 K/uL (0.0-0.8) 11/08/17 16:11 Eos # (Auto) 0.2 K/uL (0.0-0.7) 11/08/17 16:11 Baso # (Auto) 0.1 K/uL (0.0-0.2) 11/08/17 16:11 Neutrophils % (Manual) 92 % (50-75) H 11/08/17 16:11 Lymphocytes % (Manual) 3 % (20-40) L 11/08/17 16:11 Monocytes % (Manual) 5 % (0-10) 11/08/17 16:11 Platelet Estimate Normal (NORMAL) 11/08/17 16:11 Anisocytosis (manual) Slight 11/08/17 16:11 PT 12.3 SECONDS (9.7-12.2) H 11/08/17 16:11 INR 1.1 11/08/17 16:11 Sodium 137 mmol/L (132-148) 11/11/17 07:12 Potassium 4.4 mmol/L (3.6-5.2) 11/11/17 07:12 Chloride 102 mmol/L (98-107) 11/11/17 07:12 Carbon Dioxide 28 mmol/L (22-30) 11/11/17 07:12 Anion Gap 12 (10-20) 11/11/17 07:12 BUN 27 mg/dL (7-17) H 11/11/17 07:12 Creatinine 0.8 mg/dL (0.7-1.2) 11/11/17 07:12 Est GFR ( Amer) > 60 11/11/17 07:12 Est GFR (Non-Af Amer) > 60 11/11/17 07:12 Random Glucose 98 mg/dL (65-105) 11/11/17 07:12 Calcium 8.8 mg/dl (8.6-10.4) 11/11/17 07:12 Total Bilirubin 0.4 mg/dL (0.2-1.3) 11/08/17 16:11 AST 23 U/L (14-36) 11/08/17 16:11 ALT 29 U/L (9-52) 11/08/17 16:11 Alkaline Phosphatase 52 U/L (38-126) 11/08/17 16:11 CK-MB (Mass) 1.33 ng/mL (0.0-3.38) 11/08/17 16:11 Troponin I 0.0170 ng/mL (0.00-0.120) 11/08/17 16:11 Total Protein 6.0 g/dL (6.3-8.3) L 11/08/17 16:11 Albumin 3.2 g/dL (3.5-5.0) L 11/08/17 16:11 Globulin 2.8 gm/dL (2.2-3.9) 11/08/17 16:11 Albumin/Globulin Ratio 1.2 (1.0-2.1) 11/08/17 16:11 Lipase 170 U/L (23-300) 11/08/17 16:11 Urine Color Straw (YELLOW) 11/08/17 16:11 Urine Clarity Clear (Clear) 11/08/17 16:11 Urine pH 7.0 (5.0-8.0) 11/08/17 16:11 Ur Specific [place] 1.004 (1.003-1.030) 11/08/17 16:11 Urine Protein Negative mg/dL (NEGATIVE) 11/08/17 16:11 Urine Glucose (UA) Normal mg/dL (Normal) 11/08/17 16:11 Urine Ketones Negative mg/dL (NEGATIVE) 11/08/17 16:11 Urine Blood 2+ (NEGATIVE) H 11/08/17 16:11 Urine Nitrate Negative (NEGATIVE) 11/08/17 16:11 Urine Bilirubin Negative (NEGATIVE) 11/08/17 16:11 Urine Urobilinogen Normal mg/dL (0.2-1.0) 11/08/17 16:11 Ur Leukocyte Esterase 2+ Ashley/uL (Negative) H 11/08/17 16:11 Urine WBC (Auto) 2 /hpf (0-5) 11/08/17 16:11 Urine RBC (Auto) 1 /hpf (0-3) 11/08/17 16:11 Ur Squamous Epith Cells 2 /hpf (0-5) 11/08/17 16:11 Urine Bacteria Rare (<OCC) 11/08/17 16:11 - Hospital Course Hospital Course: Patient is seen and examined. Alert, awake, no sob or chest pains. Diarrhea is getting better. plan to discharge home with home care, home PT, patient agreed. Advised to follow up in the office in 1 week. Will ask director case management to follow up. Discharge Exam - Head Exam Head Exam: ATRAUMATIC, NORMAL INSPECTION, NORMOCEPHALIC Discharge Plan - Discharge Medications Prescriptions: Clonazepam [Klonopin] 0.25 mg PO BID #20 tablet predniSONE [Prednisone] 10 mg PO DAILY #11 tab - Follow Up Plan Condition: STABLE Disposition: HOME/ ROUTINE Instructions: COPD Including Emphysema (DC), Exacerbation of COPD (DC), Clonazepam, Prednisone, Peripheral Artery Disease (DC) Additional Instructions: PREDNISONE TAPERING DOSE CONTINUE WITH HOME MEDS RESUME HOME CARE/ HOME PT WITH [facility] Referrals: Lex Patel MD [Staff Provider] -
== END 2017-11-14 20:00 | disposition home or self-care (01) | DRG 192 ==
LOC: C.ER 15:13 → C.3T 17:13 → C.9E 17:13
PROVIDERS: ADMIT Internal Medicine; ATTEND Internal Medicine
DX: J44.1 Chronic obstructive pulmonary disease with (acute) exacerbation (principal); K52.9 Noninfective gastroenteritis and colitis, unspecified; I73.9 Peripheral vascular disease, unspecified; Z87.891 Personal history of nicotine dependence; K59.00 Constipation, unspecified; I50.9 Heart failure, unspecified; I11.0 Hypertensive heart disease with heart failure; F41.9 Anxiety disorder, unspecified; E03.9 Hypothyroidism, unspecified

== ENCOUNTER 2017-11-18 13:48 | Observation (INO) | payer MEDICARE, OTHER ==
[2017-11-18 13:48] VITALS: BMI 18.1
[2017-11-18] MEDS ORDERED: Iohexol 240 (50 ml) PO STA (14:22)
[2017-11-18] MEDS ORDERED: Sodium Chloride 0.9% 1,000 ML IV ONE (14:22)
[2017-11-18] MEDS ORDERED: Sodium Chloride 0.9% 1,000 ML ONE (14:35)
[2017-11-18] MEDS ORDERED: Iohexol 240 (50 ml) ONE (14:35)
[2017-11-18 14:37] LABS: BASO % 0.2 % (0.0-2.0); EOS # 0.2 K/uL (0.0-0.7); EOS % 2.2 % (0.0-4.0); HEMOGLOBIN 12.2 g/dL (11.0-16.0); LYMPH # 0.6 K/uL (1.0-4.3); LYMPH % 7.6 % (20.0-40.0); MEAN CORPUSCULAR HEMOGLOBIN 33.1 pg (27.0-31.0); MEAN CORPUSCULAR HGB CONC 34.5 g/dL (33.0-37.0); MEAN PLATELET VOLUME 7.2 fL (7.2-11.7); MONO # 0.6 K/uL (0.0-0.8); MONO % 7.9 % (0.0-10.0); NEUT # 6.2 K/uL (1.8-7.0); NEUT % 82.1 % (50.0-75.0); PLATELET COUNT 201 K/uL (130-400); RED CELL DISTRIBUTION WIDTH 15.1 % (11.5-14.5); WHITE BLOOD COUNT 7.6 K/uL (4.8-10.8)
--- NOTE | 2017-11-18 14:38 | C.PDOC ---
History Of Present Illness 82-year-old female, PMHx includes gastric CA and COPD, presents to the emergency department with complaints of profuse non-bloody/watery diarrhea 10x a day for the past 2 weeks. Patient is also complaining of left lower abdominal pain that started this morning. Patient denies any prior Hx of similar pain. States she is feeling weak. Patient denies any recent abx, recent travel, sick contacts, or any other associated symptoms. No other complaints at this time. Time Seen by Provider: 11/18/17 14:15 Chief Complaint (Nursing): GI Problem History Per: Patient History/Exam Limitations: no limitations Onset/Duration Of Symptoms: Days Current Symptoms Are (Timing): Still Present Severity: Moderate Location Of Pain/Discomfort: LLQ Past Medical History Reviewed: Historical Data, Nursing Documentation, Vital Signs Vital Signs: Last Vital Signs Temp 97.9 F 11/18/17 19:15 Pulse 84 11/18/17 19:15 Resp 18 11/18/17 19:15 BP 113/69 11/18/17 19:15 Pulse Ox 100 11/18/17 22:50 - Medical History PMH: Anxiety, Arthritis (B/L KNEES), CHF, COPD, Emphysema, HTN, Hypothyroidism Surgical History: Denies: Pacemaker - [facility] Procedures ANGIOPLASTY OF OTHER NON-CORONARY VESSEL(S) (01/22/15) INSEJ [id number] PERIPHERAL NON-CORONARY VES STENT(S) (01/22/15) INSERTION OF TWO VASCULAR STENTS (01/22/15) PROCEDURE ON TWO VESSELS (01/22/15) RADICAL EXCIS SKIN LES (10/29/12) Family History: States: No Known Family Hx - Social History Hx Alcohol Use: No Hx Substance Use: No - Immunization History Hx Tetanus Toxoid Vaccination: Yes Hx Influenza Vaccination: Yes (04/2017) Hx Pneumococcal Vaccination: Yes Review Of Systems Except As Marked, All Systems Reviewed And Found Negative. Constitutional: Positive for: Weakness. Negative for: Fever, Chills Cardiovascular: Negative for: Chest Pain, Palpitations Respiratory: Negative for: Shortness of Breath Gastrointestinal: Positive for: Abdominal Pain (LLQ), Diarrhea. Negative for: Nausea, Vomiting Genitourinary: Negative for: Incontinence Musculoskeletal: Negative for: Back Pain Neurological: Negative for: Headache, Dizziness Physical Exam - Physical Exam Appears: Non-toxic, Chronically Ill (Anorexia), Other (Cachectic) Skin: Warm, Dry, No Diaphoretic, No Rash Head: Atraumatic, Normacephalic Eye(s): bilateral: Normal Inspection, PERRL, EOMI Nose: Normal Oral Mucosa: Moist Lips: Normal Appearing Neck: Normal ROM Cardiovascular: Rhythm Regular, No Murmur Respiratory: Normal Breath Sounds, No Accessory Muscle Use Gastrointestinal/Abdominal: Soft, Tenderness (LLQ), No Guarding, No Rebound Extremity: Normal ROM, No Deformity, No Swelling Neurological/Psych: Oriented x3, Normal Speech ED Course And Treatment - Laboratory Results Result Diagrams: 11/18/17 14:34 11/18/17 14:34 ECG: Interpreted By Me ECG Rhythm: Sinus Rhythm, R BBB (incomplete) ECG Interpretation: No Acute Changes Rate From EC O2 Sat by Pulse Oximetry: 100 (RA) Pulse Ox Interpretation: Normal - Radiology CXR: Interpreted by Me CXR Interpretation: Yes: COPD - CT Scan/US abdomen/pelvis Other Rad Studies (CT/US): Read By Radiologist, Radiology Report Reviewed CT/US Interpretation: colitis Medical Decision Making Medical Decision Making: Impression: abdominal pain, diarrhea Plan: * CT Abd/Pel * EKG * Bloodwork * Pepcid, IVFs * UA * Reassess and Disposition CT colitis. Case discussed with Dr. Patel, who accepted the pt. Disposition Counseled Patient/Family Regarding: Studies Performed, Diagnosis - Disposition Disposition: HOSPITALIZED Disposition Time: 17:56 Condition: STABLE - Clinical Impression Clinical Impression: Colitis, COPD exacerbation - Scribe Statement The provider has reviewed the documentation as recorded by the Scribe (Malorie Valera) All medical record entries made by the Scribe were at my direction and personally dictated by me. I have reviewed the chart and agree that the record accurately reflects my personal performance of the history, physical exam, medical decision making, and the department course for this patient. I have also personally directed, reviewed, and agree with the discharge instructions and disposition. Decision To Admit - Pt Status Changed To: Hospital Disposition Of: Observation - . Bed Request Type: Regular Admitting Physician: Lex Patel Patient Diagnosis: Colitis, COPD exacerbation
[2017-11-18 14:48] LABS: ALB/GLOB RATIO 1.1 (1.0-2.1); ALT/SGPT 30 U/L (9-52); AST/SGOT 25 U/L (14-36); BLOOD UREA NITROGEN 25 mg/dL (7-17); CALCIUM 8.5 mg/dl (8.6-10.4); GFR AFRICAN-AMERICAN > 60; GFR NON-AFRICAN AMERICAN 53; LIPASE 120 U/L (23-300)
[2017-11-18 15:00] LABS: B-TYPE NATRIURETIC PEPTIDE 77.4 pg/mL (0-900)
[2017-11-18 15:17] LABS: LYMPHOCYTE 6 % (20-40); MONOCYTE 3 % (0-10); NEUTROPHIL 91 % (50-75); PLATELET ESTIMATE NORMAL (NORMAL); TOTAL CELLS COUNTED 100
[2017-11-18 15:18] LABS: ANISOCYTOSIS SLIGHT
[2017-11-18] MEDS ORDERED: Iohexol 300 100 ML IJ ONE (15:42)
--- NOTE | 2017-11-18 15:42 | RAD ---
Chest x-ray single view History: Shortness of breath. Comparison: 11/11/2017 Findings: Hyperinflation suggestive for COPD and or emphysematous changes. Biapical pleural thickening with upper lobe granulomatous changes. Diffuse increased interstitial lung markings. Right basilar atelectasis. Bilateral hilar prominence. Tortuous aorta. Calcification at the aortic knob. Degenerative changes in the spine and shoulders. Impression: Hyperinflation suggestive for COPD and or emphysematous changes. Biapical pleural thickening with upper lobe granulomatous changes. Diffuse increased interstitial lung markings. Right basilar atelectasis. Bilateral hilar prominence. Tortuous aorta. Calcification at the aortic knob.
--- NOTE | 2017-11-18 16:40 | CT ---
PROCEDURE: CT Abdomen and Pelvis with intravenous contrast HISTORY: Abdominal pain COMPARISON: None. TECHNIQUE: Multiple contiguous axial images were performed through the abdomen and pelvis with the use of intravenous contrast. Subsequently, sagittal and coronal reformatted images were obtained. Radiation dose: Total exam DLP = 184 mGy-cm. This CT exam was performed using one or more of the following dose reduction techniques: Automated exposure control, adjustment of the mA and/or kV according to patient size, and/or use of iterative reconstruction technique. FINDINGS: LOWER THORAX: Prominent linear areas of consolidative opacifications seen within the anterior aspect of the right lower lobe as well as within the lingula. LIVER: 8 millimeter hypodensity in the liver superiorly on series 3, image 27, too small to adequately characterize. Mild intrahepatic biliary ductal dilatation. GALLBLADDER AND BILE DUCTS: Contracted gallbladder with associated calculi. Prominent common bile duct measuring up to 7 millimeters. PANCREAS: Pancreatic ductal dilatation diffusely measuring up to 4.6 mm. Some heterogeneity at the level of the pancreatic head. Correlation a pancreatic protocol CT and or upper GI endoscopy may be helpful to better evaluate the ampullary region if clinically indicated. SPLEEN: Diminutive spleen with splenic calcifications. ADRENALS: Nodular thickening of the adrenal glands. KIDNEYS AND URETERS: Right kidney: Upper pole 6 millimeter low-attenuation lesion, too small to adequately characterize. Additional mid to lower pole low-attenuation lesion measuring 4 millimeters, too small to adequately characterize. Mild fullness of the right renal collecting system and ureter. Left Kidney: 6 millimeter low-attenuation lesion in the midpole of the left kidney, too small to adequately characterize. Additional 2 millimeter hypodensity in the lower pole of the left kidney also too small to adequately characterize. Mild fullness of the left renal collecting system and ureter. VASCULATURE: Atherosclerotic calcification and plaque. Aneurysmal prominence of the aorta measuring up to 3.5 centimeters. BOWEL: Thickening and enhancement of the descending colon, sigmoid colon, and rectum concerning for a colitis. Clinical correlation. Fecal retention in the colon for which underlying developing stercoral colitis cannot be excluded. Few scattered diverticula. APPENDIX: Not well identified. PERITONEUM: Unremarkable. No free fluid. No free air. LYMPH NODES: Scattered shotty inguinal and para-aortic lymph nodes. Scattered mesenteric nodes. BLADDER: Prominently distended urinary bladder. REPRODUCTIVE: Unremarkable. BONES: Degenerative changes in the spine and bilateral hips. OTHER FINDINGS: Scattered soft tissue calcifications. IMPRESSION: Thickening and enhancement of the descending colon, sigmoid colon, and rectum concerning for a colitis. Clinical correlation. Fecal retention in the colon for which underlying developing stercoral colitis cannot be excluded. Few scattered diverticula. Post treatment interval followup and or posttreatment colonoscopy would be helpful if clinically indicated. Additional findings as above.
[2017-11-18] MEDS ORDERED: Ciprofloxacin 400mg/200ml D5W 400 MG/200 ML BAG IV STA ×2 (17:54→20:45)
[2017-11-18] MEDS ORDERED: metroNIDAZOLE IV 500 mg/100 ml 500 MG/100 ML BAG IV SCH (18:00)
[2017-11-18] MEDS ORDERED: Ciprofloxacin 400mg/200ml D5W 400 MG/200 ML BAG IVPB ONE (18:17)
[2017-11-18] MEDS ORDERED: metroNIDAZOLE IV 500 mg/100 ml 500 MG/100 ML BAG IVPB STA (18:17)
[2017-11-18] MEDS ORDERED: metroNIDAZOLE IV 500 mg/100 ml 500 MG/100 ML BAG ONE (18:18)
[2017-11-18 19:47] VITALS: O2SAT 100
[2017-11-18] MEDS: clonazePAM 0.25 MG TAB PO SCH (20:30)
[2017-11-18] MEDS: Dextrose 5%/0.45% NS 1,000 ML IV SCH (20:40)
[2017-11-18] MEDS: metroNIDAZOLE IV 500 mg/100 ml 500 MG/100 ML BAG IVPB SCH (21:39)
[2017-11-18] MEDS: Vancomycin 125 MG/5 ML SOLN (ORAL/RECTAL) PO SCH (22:22)
[2017-11-19] MEDS: Albuterol-Ipratrop 3 mg / 0.5 (3 ml) UD INH SCH ×3 (01:59→13:12)
[2017-11-19 02:38] VITALS: RESP 20
[2017-11-19] MEDS: metroNIDAZOLE IV 500 mg/100 ml 500 MG/100 ML BAG IVPB SCH ×2 (05:10→14:18)
[2017-11-19] MEDS ORDERED: Levothyroxine 75 MCG TAB PO SCH (06:30)
[2017-11-19] MEDS ORDERED: Enoxaparin 30 mg Syringe SC SCH (10:00)
[2017-11-19] MEDS ORDERED: Peg-Electrolyte Oral Soln 4L (Golytely) PO ONE (10:00)
[2017-11-19] MEDS: Cilostazol 50 mg Tab UD PO SCH ×2 (11:30→19:41)
[2017-11-19] MEDS: Dextrose 5%/0.45% NS 1,000 ML IV SCH ×2 (11:31→13:35)
[2017-11-19] MEDS: clonazePAM 0.25 MG TAB PO SCH ×2 (11:46→19:41)
[2017-11-19] MEDS: Vancomycin 125 MG/5 ML SOLN (ORAL/RECTAL) PO SCH ×3 (12:05→19:42)
--- NOTE | 2017-11-19 12:36 | PN ---
DATE: LOCATION: 356, bed B. SUBJECTIVE: This is an 82-year-old female seen and examined for GI consultation as per request by the admitting MD on 11/18/2017. The exam began today appeared to be somewhat mildly confused, semi-agitated, in soft restraint with reported watery diarrhea before without any reported active bleeding. This morning, the patient still has episodes of some diarrhea with bowel movement, but no reported hematemesis associated with episode of nausea and dyspepsia as per her statement. The entire chart is reviewed including but not limited to most recent lab and radiology study results, current and the previous medication list, current and the previous medical events. No reported shortness of breath, chest pain, palpitations, or chills or fever. Today's lab is still pending, but yesterday lab showed normal CBC with BUN at 25, normal creatinine, low lactic acid, low calcium with low total protein and albumin. Stool for C. diff toxin negative. Abdominal and pelvic CAT scan official report is seen indicative of left-sided colitis with fecal retention in the colon, which could be a major factor for her diarrhea and colonoscopy was suggested. PHYSICAL EXAMINATION: GENERAL: An 82-year-old female. VITAL SIGNS: Afebrile with pulse of 86, respiratory rate 20 to 22, blood pressure 118/66. HEENT: Showed dry oral mucous membrane. Nonicteric sclerae. LUNGS: Few scattered crepitation, decreased air entry at bases. HEART: Positive S1 and S2. ABDOMEN: Soft. Bowel sounds are present with mild generalized tenderness. No mass or organomegaly. No rebound tenderness or guarding. RECTAL: The patient refused. EXTREMITIES: With slight lower extremity edematous changes. No clubbing or cyanosis. NEUROLOGIC: No reported new neurological deficits, sensory or motor. IMPRESSION: 1. Diarrhea, unclear etiology. The possibility of fecal impaction inducing diarrhea is strongly raised as it is one of the main reason for diarrhea elderly population. 2. To rule out occult gastrointestinal malignancy. 3. 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 4. Hypertension with hypothyroidism by history. 5. Coronary artery disease. 6. Malnutrition with hypoalbuminemia and hypoproteinemia. SUGGESTIONS: 1. Continue current management. 2. Flat and upright abdominal x-ray. 3. Clear liquid diet with laxatives. 4. The patient may need endoscopic evaluation of the upper and lower gastrointestinal tract due to her known history of gastric CA and her poorly controlled diarrhea. Further recommendation to follow. Sarah Sanders MD
[2017-11-19 15:59] VITALS: BP 110/70; PULSE 80; TEMP 98.1
[2017-11-19] MEDS ORDERED: Bisacodyl 5mg EC Tab PO ONE (17:00)
--- NOTE | 2017-11-19 21:23 | CON ---
DATE: 11/18/2017 That is from Sarah Sanders MD, to Lex Patel MD. I was called for GI consultation by the admitting medical team. The patient is seen and fully examined on 11/18/2017 as requested by the admitting medical staff. The entire chart is reviewed including but not limited to the most recent lab and radiology study results, current and the previous medication list, current and the previous medical events, allergy to medication list as well as all the available current and the previous medical records. Case discussed with the staff at length. HISTORY OF PRESENT ILLNESS: This is an 82-year-old female who was admitted to the hospital through the emergency room with a main complaint of profuse diarrhea for the last 10 to 14 days, crampy left-sided abdominal pain, postprandial abdominal distention, nausea with mild dyspepsia, but no actual vomiting and no reported active bleeding so far. The patient denied any actual chest pain, palpitation, significant shortness of breath, chills, or fever. PAST MEDICAL HISTORY: Includin. Reported gastric CA. 2. COPD. 3. Hypertension with hypothyroidism and congestive heart failure. 4. Bilateral knee osteoarthritis. 5. Severe anxiety syndrome. 6. Coronary artery disease. 7. Status post radical excision of a skin lesion about 5 years ago. FAMILY HISTORY: Unknown. CURRENT MEDICATIONS: Post admission medication list reviewed. ALLERGIES TO MEDICATION: UNCLEAR. SOCIAL HISTORY: No reported known history of cigarette smoking or alcohol intake recently. LABORATORY DATA: After being admitted to the hospital, initial workup showed normal CBC with increased BUN of 25 but normal creatinine. Abdominal and pelvic CAT scan was performed, initial report indicative of colitis. PHYSICAL EXAMINATION: GENERAL: An 82-year-old female complaining of crampy abdominal pain, but mainly in the left lower quadrant area. VITAL SIGNS: Afebrile with pulse of 82, respiratory rate 20 to 22, blood pressure 118/72. HEENT: Showed pale dry oral mucoid membrane mildly, nonicteric sclerae. LYMPH NODES: No lymphadenitis or lymphadenopathy. LUNGS: Few scattered crepitation with decreased air entry bilaterally. HEART: Positive S1 and S2. ABDOMEN: Soft with generalized tenderness but mainly in the left lower quadrant area, numbness or organomegaly. No rebound tenderness or guarding. RECTAL: The patient refused. EXTREMITIES: With mild to moderate tenderness of both knees and slight edematous changes. No other significant finding. No clubbing, cyanosis or edema. NEUROLOGIC: No reported new neurological deficits, sensory or motor. No reported new focal deficits. IMPRESSION: 1. Diarrhea with reported abnormal CAT scan of the abdomen and pelvis. 2. To rule out occult lower GI tract malignancy, keeping in mind the patient's reported history of gastric carcinoma. 3. To rule out pseudomembranous colitis inducing diarrhea. 4. To rule out diverticulosis inducing diarrhea. 5. Past medical history as above. SUGGESTIONS: 1. Agree with your plan. 2. Peripheral hyperalimentation. 3. Complete stool workup. 4. Cancer markers including CEA and CA-125. 5. Peripheral hyperalimentation. 6. Proton pump inhibitors. 7. Flagyl IV. 8. Vancomycin p.o. until the stool workup results are obtained. 9. Endoscopic evaluation of the GI tract after adequate preparation. Further recommendation to follow. Thank you for letting me participate in your patient's case management. We will follow up closely with you. Sarah Sanders MD
--- NOTE | 2017-11-20 04:45 | CP.PCM.DIS ---
Provider - Provider Date of Admission: 11/18/17 17:55 Attending physician: Lex Patel MD Time Spent in preparation of Discharge (in minutes): 32 Hospital Course - Lab Results Lab Results: Micro Results 11/18/17 18:15 Blood Blood Culture - Preliminary NO GROWTH AFTER 24 HOURS 11/18/17 18:00 Blood Blood Culture - Preliminary NO GROWTH AFTER 24 HOURS 11/18/17 14:23 Stool Stool Culture - Preliminary LACTOSE SP[employer]SEM[employer]ER, SUB SELENITE BROTH. Most Recent Lab Values WBC 7.6 K/uL (4.8-10.8) 11/18/17 14:34 RBC 3.70 Mil/uL (3.80-5.20) L 11/18/17 14:34 Hgb 12.2 g/dL (11.0-16.0) 11/18/17 14:34 Hct 35.5 % (34.0-47.0) 11/18/17 14:34 MCV 96.0 fL (81.0-99.0) 11/18/17 14:34 MCH 33.1 pg (27.0-31.0) H 11/18/17 14:34 MCHC 34.5 g/dL (33.0-37.0) 11/18/17 14:34 RDW 15.1 % (11.5-14.5) H 11/18/17 14:34 Plt Count 201 K/uL (130-400) 11/18/17 14:34 MPV 7.2 fL (7.2-11.7) 11/18/17 14:34 Neut % (Auto) 82.1 % (50.0-75.0) H 11/18/17 14:34 Lymph % (Auto) 7.6 % (20.0-40.0) L 11/18/17 14:34 Allen % (Auto) 7.9 % (0.0-10.0) 11/18/17 14:34 Eos % (Auto) 2.2 % (0.0-4.0) 11/18/17 14:34 Baso % (Auto) 0.2 % (0.0-2.0) 11/18/17 14:34 Neut # (Auto) 6.2 K/uL (1.8-7.0) 11/18/17 14:34 Lymph # (Auto) 0.6 K/uL (1.0-4.3) L 11/18/17 14:34 Allen # (Auto) 0.6 K/uL (0.0-0.8) 11/18/17 14:34 Eos # (Auto) 0.2 K/uL (0.0-0.7) 11/18/17 14:34 Baso # (Auto) 0.0 K/uL (0.0-0.2) 11/18/17 14:34 Neutrophils % (Manual) 91 % (50-75) H 11/18/17 14:34 Lymphocytes % (Manual) 6 % (20-40) L 11/18/17 14:34 Monocytes % (Manual) 3 % (0-10) 11/18/17 14:34 Platelet Estimate Normal (NORMAL) 11/18/17 14:34 Anisocytosis (manual) Slight 11/18/17 14:34 D-Dimer, Quantitative 235 ng/mlDDU (0-243) 11/18/17 14:34 Sodium 138 mmol/L (132-148) 11/18/17 14:34 Potassium 3.9 mmol/L (3.6-5.2) 11/18/17 14:34 Chloride 104 mmol/L (98-107) 11/18/17 14:34 Carbon Dioxide 27 mmol/L (22-30) 11/18/17 14:34 Anion Gap 10 (10-20) 11/18/17 14:34 BUN 25 mg/dL (7-17) H 11/18/17 14:34 Creatinine 1.0 mg/dL (0.7-1.2) 11/18/17 14:34 Est GFR ( Amer) > 60 11/18/17 14:34 Est GFR (Non-Af Amer) 53 11/18/17 14:34 Random Glucose 85 mg/dL (65-105) 11/18/17 14:34 Lactic Acid < 0.5 mmol/L (0.7-2.1) L 11/18/17 14:45 Calcium 8.5 mg/dl (8.6-10.4) L 11/18/17 14:34 Total Bilirubin 0.3 mg/dL (0.2-1.3) 11/18/17 14:34 AST 25 U/L (14-36) 11/18/17 14:34 ALT 30 U/L (9-52) 11/18/17 14:34 Alkaline Phosphatase 43 U/L (38-126) 11/18/17 14:34 Troponin I < 0.0120 ng/mL (0.00-0.120) 11/18/17 14:34 NT-Pro-B Natriuret Pep 77.4 pg/mL (0-900) 11/18/17 14:34 Total Protein 5.6 g/dL (6.3-8.3) L 11/18/17 14:34 Albumin 3.0 g/dL (3.5-5.0) L 11/18/17 14:34 Globulin 2.6 gm/dL (2.2-3.9) 11/18/17 14:34 Albumin/Globulin Ratio 1.1 (1.0-2.1) 11/18/17 14:34 Lipase 120 U/L (23-300) 11/18/17 14:34 Carcinoembryonic Ag 2.9 ng/mL (0-3.0) 11/19/17 11:21 CA 19-9 Antigen 117 U/mL (0-37) H 11/19/17 11:21 CA 125 Antigen 25.1 U/mL (0-35) 11/19/17 11:21 C. difficile Ag & Toxin Negative (NEGATIVE) 11/18/17 14:23 - Hospital Course Hospital Course: Pt has LLQ oain and diarrhea, c. diff ruled out pt is anxious and depressed has been treated for gastroenteritis, pt is stable for discharge Discharge Exam - Eye Exam Eye Exam: Normal appearance - ENT Exam ENT Exam: Mucous Membranes Moist - Respiratory Exam Respiratory Exam: Clear to PA & Lateral, NORMAL BREATHING PATTERN - Cardiovascular Exam Cardiovascular Exam: REGULAR RHYTHM, +S1, +S2 - GI/Abdominal Exam GI & Abdominal Exam: Normal Bowel Sounds - Rectal Exam Rectal Exam: Deferred - Psychiatric Exam Psychiatric exam: Anxious, Depressed Discharge Plan - Follow Up Plan Condition: STABLE Disposition: HOME/ ROUTINE Instructions: Diarrhea in Adolescents and Adults, Dicyclomine, Bismuth Subsalicylate Additional Instructions: F/U with Dr. Patel in one week from discharge Referrals: Lex Patel MD [Staff Provider] -
--- NOTE | 2017-11-20 04:45 | CP.PCM.HP ---
History of Present Illness - History of Present Illness History of Present Illness: CC: LLQ pain & diarrhea x 1 day History Of Present Illness 82-year-old female, PMHx includes gastric CA and COPD, presents to the emergency department with complaints of profuse non-bloody/watery diarrhea 10x a day for the past 2 weeks. Patient is also complaining of left lower abdominal pain that started this morning. Patient denies any prior Hx of similar pain. States she is feeling weak. Patient denies any recent abx, recent travel, sick contacts, or any other associated symptoms. No other complaints at this time. pt is anxious and depressed and crying, i ahve been treating her for anxiety Present on Admission - Present on Admission Any Indicators Present on Admission: Yes Review of Systems - Review of Systems Systems not reviewed;Unavailable: Acuity of Condition - Constitutional Constitutional: Fatigue, Lethargy, Malaise - EENT Eyes: absent: As Per HPI, Blind Spots, Blurred Vision, Change in Vision, Decreased Night Vision, Diplopia, Discharge, Dry Eye, Exophthalmos, Floaters, Irritation, Itchy Eyes, Loss of Peripheral Vision, Pain, Photophobia, Requires Corrective Lenses, Sees Flashes, Spots in Vision, Tunnel Vision, Other Visual Disturbances, Loss of Vision, Other Nose/Mouth/Throat: absent: As Per HPI, Epistaxis, Nasal Congestion, Nasal Discharge, Nasal Obstruction, Nasal Trauma, Nose Pain, Post Nasal Drip, Sinus Pain, Sinus Pressure, Bleeding Gums, Change in Voice, Dental Pain, Dry Mouth, Dysphagia, Halitosis, Hoarsness, Lip Swelling, Mouth Lesions, Mouth Pain, Odynophagia, Sore Throat, Throat Swelling, Tongue Swelling, Facial Pain, Neck Pain, Neck Mass, Other - Cardiovascular Cardiovascular: absent: As Per HPI, Acrocyanosis, Chest Pain, Chest Pain at Rest , Chest Pain with Activity, Claudication, Diaphoresis, Dyspnea, Dyspnea on Exertion, Edema, Irregular Heart Rhythm, Pain Radiating to Arm/Neck/Jaw, Leg Edema, Leg Ulcers, Lightheadedness, Orthopnea, Palpitations, Paroxysmal Nocturnal Dyspnea, Pedal Edema, Radiating Pain, Rapid Heart Rate, Slow Heart Rate, Syncope, Other - Respiratory Respiratory: Cough, Dyspnea - Gastrointestinal Gastrointestinal: Abdominal Pain, Bloating, Cramping, Diarrhea - Genitourinary Genitourinary: absent: As Per HPI, Change in Urinary Stream, Difficulty Urinating, Dysuria, Flank Pain, Hematuria, Pyuria, Nocturia, Urinary Incontinence, Urinary Frequency, Urinary Hesitance, Urinary Urgency, Voiding Freq/Small Amts, Freq UTI, Hx Renal/Bladder Calculi, Hx /Renal Surgery, Bladder Distension, Other - Neurological Neurological: Weakness - Psychiatric Psychiatric: Anxiety, Depression, Difficulty Concentrating, Irritability - Endocrine Endocrine: absent: As Per HPI, Change in Body Appearance, Change in Libido, Cold Intolorance, Deepening of Voice, Excessive Sweating, Fatigue, Flushing, Heat Intolorance, Increase in Ring/Shoe/Hat Size, Palpitations, Polydipsia, Polyphagia, Polyuria, Other Past Patient History - Infectious Disease Hx of Infectious Diseases: None - Past Medical History & Family History Past Medical History?: Yes - Past Social History Smoking Status: Former Smoker - CARDIAC Hx Congestive Heart Failure: Yes Hx Hypertension: Yes Hx Pacemaker: No - PULMONARY Hx Chronic Obstructive Pulmonary Disease (COPD): Yes Hx Emphysema: Yes - NEUROLOGICAL Hx Neurological Disorder: No Hx Paralysis: No - HEENT Hx HEENT Problems: No - ENDOCRINE/METABOLIC Hx Hypothyroidism: Yes - HEMATOLOGICAL/ONCOLOGICAL Hx Blood Disorders: No Hx Blood Transfusions: No - INTEGUMENTARY Hx Dermatological Problems: No - MUSCULOSKELETAL/RHEUMATOLOGICAL Hx Arthritis: Yes (B/L KNEES) - GASTROINTESTINAL Hx Gastrointestinal Disorders: No - GENITOURINARY/GYNECOLOGICAL Hx Genitourinary Disorders: No - PSYCHIATRIC Hx Anxiety: Yes Hx Substance Use: No - SURGICAL HISTORY Hx Surgeries: Yes Other/Comment: insertion of vascular stents (01/31) - ANESTHESIA Hx Anesthesia: Yes Hx Anesthesia Reactions: No Hx Malignant Hyperthermia: No Meds Allergies/Adverse Reactions: Allergies Allergy/AdvReac Type Severity Reaction Status Date / Time No Known Allergies Allergy Verified 11/18/17 14:12 Physical Exam - Constitutional Appears: No Acute Distress - Head Exam Head Exam: ATRAUMATIC, NORMAL INSPECTION, NORMOCEPHALIC - Respiratory Exam Respiratory Exam: Clear to Auscultation Bilateral, NORMAL BREATHING PATTERN - Cardiovascular Exam Cardiovascular Exam: REGULAR RHYTHM - GI/Abdominal Exam GI & Abdominal Exam: Hyperactive Bowel Sounds, Tenderness - Rectal Exam Rectal Exam: Deferred - Extremities Exam Extremities exam: Positive for: normal inspection - Back Exam Back exam: NORMAL INSPECTION - Neurological Exam Neurological exam: Alert, CN II-XII Intact, Normal Gait, Reflexes Normal - Psychiatric Exam Psychiatric exam: Anxious, Depressed Results - Vital Signs Recent Vital Signs: Last Vital Signs Temp 98.1 F 11/19/17 15:56 Pulse 80 11/19/17 15:56 Resp 20 11/19/17 15:56 BP 110/70 11/19/17 15:56 Pulse Ox 100 11/19/17 15:56 - Labs Result Diagrams: 11/18/17 14:34 11/18/17 14:34 Labs: Laboratory Results - last 24 hr 11/19/17 11:21 Carcinoembryonic Ag 2.9 CA 19-9 Antigen 117 H CA 125 Antigen 25.1 Assessment & Plan (1) COPD (chronic obstructive pulmonary disease) Status: Acute (2) Gastroenteritis Status: Acute (3) Anxiety Status: Acute (4) Diarrhea Status: Acute (5) HTN (hypertension) Status: Acute (6) PAD (peripheral artery disease) Status: Acute
--- NOTE | 2017-11-21 13:42 | CARD ---
APPROVED REPORT EKG Measurement Heart [id number] <Conclusion> Sinus rhythm with marked sinus arrhythmia Pulmonary disease pattern Incomplete right bundle branch block Left anterior fascicular block Abnormal ECG
[2017-11-25] MEDS ORDERED: Home Med 1 UNIT (Alendronate [Fosamax] 70 MG) PO SCH (10:00)
[2017-11-25] MEDS ORDERED: Ergocalciferol 50,000 Intl Units Cap PO SCH (10:00)
== END 2017-11-19 19:50 | disposition home or self-care (01) ==
LOC: C.ER 13:48 → C.9E 17:55 → C.3T 18:28
PROVIDERS: ADMIT Internal Medicine; ATTEND Internal Medicine
DX: K52.9 Noninfective gastroenteritis and colitis, unspecified (principal); J44.1 Chronic obstructive pulmonary disease with (acute) exacerbation; F41.9 Anxiety disorder, unspecified; Z87.891 Personal history of nicotine dependence; I73.9 Peripheral vascular disease, unspecified; E03.9 Hypothyroidism, unspecified; M17.0 Bilateral primary osteoarthritis of knee; Z85.028 Personal history of other malignant neoplasm of stomach
CPT/HCPCS: 36415; 71045; 74177; 80053; 82378; 83605; 83690; 83880; 84484; 85025; 85378; 86301; 86304; 87040; 87045; 87230; 94640; 96361; 96365; 96366; 96367; 96368; 96372; 96375; 99284; G0378; J0744; J1650; J2765; J7030; J7042; Q9966; Q9967

== ENCOUNTER 2017-11-24 14:33 | Inpatient (IN) | payer MEDICARE, OTHER ==
[2017-11-24 14:34] VITALS: BMI 18.1
--- NOTE | 2017-11-24 14:52 | C.PDOC ---
History Of Present Illness 82 y/o female presents to the ED with left sided chest pain s/p fall. Patient states symptoms began 3 days when she took her routine meds. She began to feel dizzy causing her to fall onto the left side of her chest. Patient also reports SOB with breathing worse with movement. Due to fall she has abrasions on her left lower leg, however she is able to walk with a walker. The pain to her chest is localized the left side and lower part of the chest wall. She uses 3 liters of oxygen at home during the night time. Denies any fever or cough. PMD: Dr. Lex Patel LIMITED POOR HISTORIAN CO L SIDED CP X 3 DAYS S/P FALL, SOB "FOR A WHILE". PS TOOK HER ROUTINE MEDS, BECAME DIZZY AND FELL ONTO L CHEST. CO PERSIST PAIN LOWER AND SIDE L CHEST, WORSE W BREATHING MOVEMENT. +WORSENING SOB, USES 3L HOME O2 "ONLY AT NIGHT". DENIES FEVER, COUGH. +MULTIPLE ABRASIONS L LOWER LEG BUT HAS BEEN ABLE TO WALK W USUAL WALKER ASSIST W/O DIFF. ROS LIMITED EXAM MOD DIST NONTOXIC HEENT ATRAUM LUNGS TACHYPNIC, SPEAKING FULL SENTENCES DEC BS B/L NO W/R/R CHEST WALL +TEND L LOWER CHEST WALL NO CREPITUS, GROSS DEFORM; SYMMETRIC CV RRR ABD NEG SKIN MULT HEALING ABRASION L LOWER LEG. CHEST WALL SKIN INTACT EXT AROM WO DIFF NO SWELL, DEFORM NO FOCAL DEF PSYCH CALM, ANXIOUS BUT CONSOLABLE REMAINDER NEG DC 6/3 S/P DIARRHEA. Time Seen by Provider: 11/24/17 14:47 Chief Complaint (Nursing): Shortness Of Breath History Per: Patient History/Exam Limitations: no limitations Onset/Duration Of Symptoms: Days (x3) Current Symptoms Are (Timing): Still Present Recent travel outside of the [place]: No Past Medical History Reviewed: Historical Data, Nursing Documentation, Vital Signs Vital Signs: Last Vital Signs Temp 98.2 F 11/24/17 14:43 Pulse 92 H 11/24/17 16:12 Resp 20 11/24/17 16:12 BP 122/75 11/24/17 16:12 Pulse Ox 100 11/24/17 17:07 - Medical History PMH: Anxiety, Arthritis (B/L KNEES), CHF, COPD, Emphysema, HTN, Hypothyroidism Surgical History: No Surg Hx Denies: Pacemaker - [facility] Procedures ANGIOPLASTY OF OTHER NON-CORONARY VESSEL(S) (01/22/15) INSEJ [id number] PERIPHERAL NON-CORONARY VES STENT(S) (01/22/15) INSERTION OF TWO VASCULAR STENTS (01/22/15) PROCEDURE ON TWO VESSELS (01/22/15) RADICAL EXCIS SKIN LES (10/29/12) Family History: States: No Known Family Hx - Social History Hx Tobacco Use: No Hx Alcohol Use: No Hx Substance Use: No - Immunization History Hx Tetanus Toxoid Vaccination: Yes Hx Influenza Vaccination: Yes (04/2017) Hx Pneumococcal Vaccination: Yes Review Of Systems Except As Marked, All Systems Reviewed And Found Negative. Constitutional: Negative for: Fever Cardiovascular: Positive for: Chest Pain Respiratory: Positive for: Shortness of Breath. Negative for: Cough Skin: Positive for: Other (abrasions to left lower leg) Physical Exam - Physical Exam Appears: Non-toxic, No Acute Distress, Other (moderate discomfort) Skin: Normal Color, Warm, Dry, Other (multiple healing abrasions on left lower leg, chest wall skin intact) Head: Atraumatic Eye(s): bilateral: Normal Inspection, PERRL, EOMI Chest: Symmetrical, No Deformity, Tenderness (to the left lower chest wall), No Other (crepitus) Cardiovascular: Rhythm Regular Respiratory: No Normal Breath Sounds (tachypnic), Decreased Breath Sounds ( bilaterally), No Rales, No Rhonchi, No Wheezing, Other (speaking full sentences) Gastrointestinal/Abdominal: Normal Exam, Soft, No Tenderness Extremity: Normal ROM (without difficulty), No Deformity, No Swelling Neurological/Psych: Oriented x3, Other (calm, anxious but consolable; no focal deficits) ED Course And Treatment - Laboratory Results Result Diagrams: 11/24/17 14:57 11/24/17 14:57 ECG: Interpreted By Me ECG Rhythm: Sinus Rhythm ECG Interpretation: No Changes From Prior Rate From EC O2 Sat by Pulse Oximetry: 100 (RA) Pulse Ox Interpretation: Normal - Radiology CXR: Interpreted by Me CXR Interpretation: Yes: No Acute Disease Progress - Re-Evaluation Re-evaluation Note: 11/24/17 15:27 D/W DR PATEL AWARE OF ER FINDINGS. CT PENDINGS. WILL ADMIT 11/24/17 16:02 CO PERSIST SOB. VSS. PS "I DONT LIKE WEARING THAT MASK" S/P NEB. WILL VAPOTHERM , REEVAL. CT PENDING 11/24/17 16:45 ON VAPOTHERM, IMPROVED COMPARED TO PRIOR. VSS. PENDING CT - Data Reviewed Data Reviewed: Lab, Diagnostic imaging, EKG, Old records Medical Decision Making Medical Decision Making: Scribe Attestation: Documented by Toby Isaacs acting as a scribe for Alia Molina MD. Scribe Attestation: All medical record entries made by the Scribe were at my direction and personally dictated by me. I have reviewed the chart and agree that the record accurately reflects my personal performance of the history, physical exam, medical decision making, and the department course for this patient. I have also personally directed, reviewed, and agree with the discharge instructions and disposition. Disposition Counseled Patient/Family Regarding: Studies Performed, Diagnosis - Disposition Disposition: HOSPITALIZED Disposition Time: 15:27 Condition: STABLE Forms: [facility] (Congolese) - POA Present On Arrival: Falls Or Trauma - Clinical Impression Clinical Impression: Dyspnea, COPD exacerbation, Chest wall contusion, Chest pain Decision To Admit - Pt Status Changed To: Hospital Disposition Of: Observation - . Bed Request Type: Telemetry Admitting Physician: Lex Patel Patient Diagnosis: Dyspnea, COPD exacerbation, Chest wall contusion, Chest pain
[2017-11-24] MEDS ORDERED: Lidocaine 5% Patch TD STA (14:54)
[2017-11-24] MEDS: Albuterol-Ipratrop 3 mg / 0.5 (3 ml) UD IH SCH ×3 (15:00→15:30)
[2017-11-24] MEDS ORDERED: Lidocaine 5% Patch TD ONE (15:07)
[2017-11-24] MEDS ORDERED: MethylPREDNISolone 40 mg Vial ONE (15:07)
[2017-11-24 15:08] LABS: BASO # 0.1 K/uL (0.0-0.2); EOS # 0.2 K/uL (0.0-0.7); EOS % 2.7 % (0.0-4.0); HEMOGLOBIN 11.5 g/dL (11.0-16.0); LYMPH # 0.8 K/uL (1.0-4.3); MEAN CELL VOLUME 95.4 fL (81.0-99.0); MEAN CORPUSCULAR HEMOGLOBIN 31.8 pg (27.0-31.0); MEAN CORPUSCULAR HGB CONC 33.4 g/dL (33.0-37.0); MEAN PLATELET VOLUME 7.4 fL (7.2-11.7); MONO # 0.5 K/uL (0.0-0.8); MONO % 8.6 % (0.0-10.0); NEUT # 4.4 K/uL (1.8-7.0); NEUT % 74.7 % (50.0-75.0); NRBC % 0.1 % (0.0-2.0); RBC 3.6 Mil/uL (3.80-5.20); RED CELL DISTRIBUTION WIDTH 15.4 % (11.5-14.5); WHITE BLOOD COUNT 5.9 K/uL (4.8-10.8)
[2017-11-24] MEDS ORDERED: Albuterol-Ipratrop 3 mg / 0.5 (3 ml) UD ONE (15:16)
[2017-11-24 15:20] LABS: INR 1.2; PROTHROMBIN TIME 12.8 SECONDS (9.7-12.2)
[2017-11-24 15:26] LABS: ALB/GLOB RATIO 1.1 (1.0-2.1); ALBUMIN 3.2 g/dL (3.5-5.0); ALT/SGPT 10 U/L (9-52); AST/SGOT 25 U/L (14-36); BLOOD UREA NITROGEN 8 mg/dL (7-17); CALCIUM 8.7 mg/dl (8.6-10.4); GFR AFRICAN-AMERICAN > 60; GFR NON-AFRICAN AMERICAN > 60
--- NOTE | 2017-11-24 15:45 | RAD ---
PROCEDURE: CHEST RADIOGRAPH, 1 VIEW HISTORY: SOB COMPARISON: Chest radiograph dated 11/18/2017. FINDINGS: LUNGS: Clear. Persistent nodule in the peripheral left midlung. PLEURA: No pneumothorax or pleural fluid seen. CARDIOVASCULAR: Atherosclerotic aortic calcifications. Cardiomediastinal silhouette within normal it's. OSSEOUS STRUCTURES: Unchanged. VISUALIZED UPPER ABDOMEN: Normal. OTHER FINDINGS: None. IMPRESSION: No active disease.
[2017-11-24 15:58] LABS: B-TYPE NATRIURETIC PEPTIDE 128 pg/mL (0-900)
--- NOTE | 2017-11-24 17:34 | CT ---
PROCEDURE: CT Chest without contrast HISTORY: SOB, TRAUMA COMPARISON: None. TECHNIQUE: Contiguous axial images were obtained through the chest without intravenous contrast enhancement. Sagittal and coronal reconstructions were performed. Radiation dose (DLP): 161 mGy-cm. This CT exam was performed using one or more of the following dose reduction techniques: Automated exposure control, adjustment of the mA and/or kV according to patient size, and/or use of iterative reconstruction technique. FINDINGS: LUNGS: Clear lungs. Right middle lobe, right lower lobe and left upper lobe scarring. Visualized airway clear. MEDIASTINUM: Unremarkable thoracic aorta. No aneurysm. Normal sized heart. Main pulmonary artery unremarkable. No vascular congestion. No lymphadenopathy. PLEURA: No pleural fluid. No pneumothorax. BONES: No fracture. Bone island in the left lateral 5th rib. No destructive lesion. UPPER ABDOMEN: Grossly unremarkable. OTHER FINDINGS: None. IMPRESSION: Areas of bilateral parenchymal scarring as described above. No pulmonary nodule, mass or consolidation. No pleural effusion. Pulmonary nodule described on chest x-ray corresponds to a bone island in the left lateral 5th rib.
--- NOTE | 2017-11-24 17:45 | CT ---
PROCEDURE: CT HEAD WITHOUT CONTRAST. HISTORY: TRAUMA COMPARISON: None available. TECHNIQUE: Axial computed tomography images were obtained through the head/brain without intravenous contrast. Radiation dose: Total exam DLP = 836.1 mGy-cm. This CT exam was performed using one or more of the following dose reduction techniques: Automated exposure control, adjustment of the mA and/or kV according to patient size, and/or use of iterative reconstruction technique. FINDINGS: HEMORRHAGE: No intracranial hemorrhage. BRAIN: No mass effect or edema. Atrophy. Chronic microvascular ischemic changes. Bilateral basal ganglia lacunar infarctions. Low density 1.1 x 0.8 cm structure with areas of internal fat in the inferomedial right occipital lobe (series 4, image 28). VENTRICLES: Prominent. No hydrocephalus. CALVARIUM: Unremarkable. PARANASAL SINUSES: Unremarkable as visualized. No significant inflammatory changes. MASTOID AIR CELLS: Unremarkable as visualized. No inflammatory changes. OTHER FINDINGS: None. IMPRESSION: No acute intracranial pathology. 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
[2017-11-24] MEDS ORDERED: Potassium Chloride 20 mEq/15 ml LIQ UD PO STA (18:27)
[2017-11-24] MEDS ORDERED: Potassium Chloride 20 mEq/15 ml LIQ UD ONE (18:51)
[2017-11-24] MEDS: Albuterol-Ipratrop 3 mg / 0.5 (3 ml) UD INH SCH (19:48)
[2017-11-24] MEDS: diltiaZEM 120 mg/24 Hours CD Cap PO SCH (21:46)
[2017-11-24] MEDS: MethylPREDNISolone 40 mg Vial IVP SCH (21:47)
[2017-11-24 22:36] LABS: CK-MB 1.02 ng/mL (0.0-3.38)
--- NOTE | 2017-11-25 00:24 | CP.PCM.HP ---
History of Present Illness - History of Present Illness History of Present Illness: CC: Chest pain HPI: 82 y/o female presents to the ED with left sided chest pain s/p fall. Patient states symptoms began 3 days when she took her routine meds. She began to feel dizzy causing her to fall onto the left side of her chest. Patient also reports SOB with breathing worse with movement. Due to fall she has abrasions on her left lower leg, however she is able to walk with a walker. The pain to her chest is localized the left side and lower part of the chest wall. She uses 3 liters of oxygen at home during the night time. Denies any fever or cough. Present on Admission - Present on Admission Any Indicators Present on Admission: No Past Patient History - Infectious Disease Hx of Infectious Diseases: None - Past Medical History & Family History Past Medical History?: Yes - Past Social History Smoking Status: Former Smoker - CARDIAC Hx Congestive Heart Failure: Yes Hx Hypertension: Yes Hx Pacemaker: No - PULMONARY Hx Chronic Obstructive Pulmonary Disease (COPD): Yes Hx Emphysema: Yes - NEUROLOGICAL Hx Neurological Disorder: No Hx Paralysis: No - HEENT Hx HEENT Problems: No - ENDOCRINE/METABOLIC Hx Hypothyroidism: Yes - HEMATOLOGICAL/ONCOLOGICAL Hx Blood Disorders: No Hx Blood Transfusions: No Hx Cancer: Yes ("STOMACH") - INTEGUMENTARY Hx Dermatological Problems: No - MUSCULOSKELETAL/RHEUMATOLOGICAL Hx Arthritis: Yes (B/L KNEES) - GASTROINTESTINAL Hx Gastrointestinal Disorders: No - GENITOURINARY/GYNECOLOGICAL Hx Genitourinary Disorders: No - PSYCHIATRIC Hx Anxiety: Yes Hx Substance Use: No - SURGICAL HISTORY Hx Surgeries: Yes Other/Comment: insertion of vascular stents (01/31). "STOMACH CANCER SURGERY" - ANESTHESIA Hx Anesthesia: Yes Hx Anesthesia Reactions: No Hx Malignant Hyperthermia: No Meds Allergies/Adverse Reactions: Allergies Allergy/AdvReac Type Severity Reaction Status Date / Time No Known Allergies Allergy Verified 11/18/17 14:12 Results - Vital Signs Recent Vital Signs: Last Vital Signs Temp 98 F 11/24/17 19:25 Pulse 95 H 11/24/17 19:53 Resp 20 11/24/17 23:48 BP 121/76 11/24/17 19:25 Pulse Ox 100 11/24/17 19:25 - Labs Result Diagrams: 11/24/17 14:57 11/25/17 07:25 Labs: Laboratory Results - last 24 hr 11/24/17 11/24/17 11/24/17 14:44 14:57 14:57 WBC 5.9 RBC 3.60 L Hgb 11.5 Hct 34.3 MCV 95.4 MCH 31.8 H MCHC 33.4 RDW 15.4 H Plt Count 290 MPV 7.4 Neut % (Auto) 74.7 Lymph % (Auto) 13.0 L [place] % (Auto) 8.6 Eos % (Auto) 2.7 Baso % (Auto) 1.0 Neut # (Auto) 4.4 Lymph # (Auto) 0.8 L [place] # (Auto) 0.5 Eos # (Auto) 0.2 Baso # (Auto) 0.1 PT INR APTT Sodium 138 Potassium 3.2 L Chloride 103 Carbon Dioxide 26 Anion Gap 12 BUN 8 Creatinine 0.8 Est GFR ( Amer) > 60 Est GFR (Non-Af Amer) > 60 POC Glucose (mg/dL) 82 Random Glucose 73 Calcium 8.7 Total Bilirubin 0.1 L AST 25 ALT 10 Alkaline Phosphatase 50 Total Creatine Kinase CK-MB (Mass) Troponin I < 0.0120 NT-Pro-B Natriuret Pep 128 Total Protein 6.1 L Albumin 3.2 L Globulin 2.9 Albumin/Globulin Ratio 1.1 11/24/17 11/24/17 14:57 22:04 WBC RBC Hgb Hct MCV MCH MCHC RDW Plt Count MPV Neut % (Auto) Lymph % (Auto) [place] % (Auto) Eos % (Auto) Baso % (Auto) Neut # (Auto) Lymph # (Auto) [place] # (Auto) Eos # (Auto) Baso # (Auto) PT 12.8 H INR 1.2 APTT 37 H Sodium Potassium Chloride Carbon Dioxide Anion Gap BUN Creatinine Est GFR ( Amer) Est GFR (Non-Af Amer) POC Glucose (mg/dL) Random Glucose Calcium Total Bilirubin AST ALT Alkaline Phosphatase Total Creatine Kinase 78 CK-MB (Mass) 1.02 Troponin I < 0.0120 NT-Pro-B Natriuret Pep Total Protein Albumin Globulin Albumin/Globulin Ratio
[2017-11-25] MEDS: Albuterol-Ipratrop 3 mg / 0.5 (3 ml) UD INH SCH ×4 (01:17→19:25)
[2017-11-25] MEDS: Levothyroxine 75 MCG TAB PO SCH (06:07)
[2017-11-25 07:58] LABS: CK-MB 1.08 ng/mL (0.0-3.38)
[2017-11-25 09:16] LABS: BLOOD UREA NITROGEN 9 mg/dL (7-17); CALCIUM 8.5 mg/dl (8.6-10.4); GFR AFRICAN-AMERICAN > 60; GFR NON-AFRICAN AMERICAN > 60
[2017-11-25] MEDS: Enoxaparin 40 mg Syringe SC SCH (10:55)
[2017-11-25] MEDS: MethylPREDNISolone 40 mg Vial IVP SCH ×2 (10:55→21:46)
[2017-11-25] MEDS: Cilostazol 100 mg Tab UD PO SCH (10:55)
[2017-11-25] MEDS: Atropine-Diphenoxylate 0.025-2.5 mg Tab PO PRN (11:00)
[2017-11-25] MEDS: diltiaZEM 120 mg/24 Hours CD Cap PO SCH (21:46)
[2017-11-26] MEDS: Albuterol-Ipratrop 3 mg / 0.5 (3 ml) UD INH SCH ×4 (01:11→20:24)
[2017-11-26] MEDS: Levothyroxine 75 MCG TAB PO SCH (05:37)
[2017-11-26] MEDS: MethylPREDNISolone 40 mg Vial IVP SCH ×2 (10:28→21:17)
[2017-11-26] MEDS: Cilostazol 100 mg Tab UD PO SCH (10:29)
[2017-11-26] MEDS: Enoxaparin 40 mg Syringe SC SCH (10:29)
[2017-11-26] MEDS: Atropine-Diphenoxylate 0.025-2.5 mg Tab PO PRN (16:50)
--- NOTE | 2017-11-26 17:09 | CP.PCM.CON ---
History of Present Illness - History of Present Illness History of Present Illness: Reason for consultation: shortness of breath/COPD 82-year-old female with COPD, ecently discharged from hospital and treated for diarrhea/COPD exacerbation presented to emergency room status post fall and left -sided chest pain associated with shortness of breath. Denies cough, denies fever chills, denies Review of Systems - Review of Systems All systems: reviewed and no additional remarkable complaints except (chest pain localized on left side associated with shortness of breath) Past Patient History - Infectious Disease Hx of Infectious Diseases: None - Past Medical History & Family History Past Medical History?: Yes - Past Social History Smoking Status: Former Smoker - CARDIAC Hx Congestive Heart Failure: Yes Hx Hypertension: Yes - PULMONARY Hx Chronic Obstructive Pulmonary Disease (COPD): Yes - NEUROLOGICAL Hx Neurological Disorder: No Hx Paralysis: No - HEENT Hx HEENT Problems: No - ENDOCRINE/METABOLIC Hx Hypothyroidism: Yes - HEMATOLOGICAL/ONCOLOGICAL Hx Blood Disorders: No Hx Blood Transfusions: No Hx Cancer: Yes ("STOMACH") - INTEGUMENTARY Hx Dermatological Problems: No - MUSCULOSKELETAL/RHEUMATOLOGICAL Hx Arthritis: Yes (B/L KNEES) Hx Falls: No - GASTROINTESTINAL Hx Gastrointestinal Disorders: No - GENITOURINARY/GYNECOLOGICAL Hx Genitourinary Disorders: No - PSYCHIATRIC Hx Anxiety: Yes Hx Substance Use: No - SURGICAL HISTORY Hx Surgeries: Yes Other/Comment: insertion of vascular stents (01/31). "STOMACH CANCER SURGERY" - ANESTHESIA Hx Anesthesia: Yes Hx Anesthesia Reactions: No Hx Malignant Hyperthermia: No Meds Allergies/Adverse Reactions: Allergies Allergy/AdvReac Type Severity Reaction Status Date / Time No Known Allergies Allergy Verified 11/18/17 14:12 - Medications Medications: Current Medications Albuterol/Ipratropium (Duoneb 3 Mg/0.5 Mg (3 Ml) Ud) 3 ml INH RQ6 [facility] Last Admin: 11/26/17 13:46 Dose: 3 ml Cilostazol (Pletal) 100 mg PO DAILY [facility] Last Admin: 11/26/17 10:29 Dose: 100 mg Diltiazem HCl (Cardizem Cd) 120 mg PO HS [facility] Last Admin: 11/25/17 21:46 Dose: 120 mg Diphenoxylate HCl/Atropine (Lomotil 0.025-2.5 Mg Tablet) 1 tab PO Q4 PRN PRN Reason: Diarrhea Last Admin: 11/26/17 16:50 Dose: 1 tab Enoxaparin Sodium (Lovenox) 40 mg SC DAILY [facility] Last Admin: 11/26/17 10:29 Dose: 40 mg Gabapentin (Neurontin) 100 mg PO TID [facility] Last Admin: 11/26/17 13:56 Dose: 100 mg Levothyroxine Sodium (Synthroid) 75 mcg PO DAILY@0630 [facility] Last Admin: 11/26/17 05:37 Dose: 75 mcg Methylprednisolone (Solu-Medrol) 40 mg IVP Q12 [facility] Last Admin: 11/26/17 10:28 Dose: 40 mg Roflumilast (Daliresp) 500 mcg PO DAILY [facility] Last Admin: 11/26/17 10:29 Dose: 500 mcg Sertraline HCl (Zoloft) 25 mg PO DAILY [facility] Last Admin: 11/26/17 12:30 Dose: 25 mg Physical Exam - Head Exam Head Exam: ATRAUMATIC, NORMOCEPHALIC - Eye Exam Eye Exam: Normal appearance - ENT Exam ENT Exam: Mucous Membranes Moist - Neck Exam Neck exam: Positive for: Normal Inspection - Respiratory Exam Respiratory Exam: Decreased Breath Sounds - Cardiovascular Exam Cardiovascular Exam: REGULAR RHYTHM Results - Vital Signs Recent Vital Signs: Last Vital Signs Temp 97.6 F 11/26/17 07:00 Pulse 77 11/26/17 07:00 Resp 18 11/26/17 07:00 BP 114/74 11/26/17 07:00 Pulse Ox 99 11/26/17 07:00 - Labs Result Diagrams: 11/24/17 14:57 11/25/17 07:25 Assessment & Plan (1) COPD exacerbation Assessment and Plan: continue nebulizer treatment and IV steroids Pain medication for chest pain Status: Acute (2) Chest wall contusion Status: Acute
--- NOTE | 2017-11-26 17:16 | CP.PCM.PN ---
Subjective - Date & Time of Evaluation Date of Evaluation: 11/25/17 Time of Evaluation: 18:00 - Subjective Subjective: Pt seen and examined at bedside Objective - Vital Signs/Intake and Output Vital Signs (last 24 hours): Temp Pulse Resp BP Pulse Ox 97.6 F 77 18 114/74 99 11/26/17 07:00 11/26/17 07:00 11/26/17 07:00 11/26/17 07:00 11/26/17 07:00 - Medications Medications: Current Medications Albuterol/Ipratropium (Duoneb 3 Mg/0.5 Mg (3 Ml) Ud) 3 ml INH RQ6 [facility] Last Admin: 11/26/17 13:46 Dose: 3 ml Cilostazol (Pletal) 100 mg PO DAILY [facility] Last Admin: 11/26/17 10:29 Dose: 100 mg Diltiazem HCl (Cardizem Cd) 120 mg PO HS [facility] Last Admin: 11/25/17 21:46 Dose: 120 mg Diphenoxylate HCl/Atropine (Lomotil 0.025-2.5 Mg Tablet) 1 tab PO Q4 PRN PRN Reason: Diarrhea Last Admin: 11/26/17 16:50 Dose: 1 tab Enoxaparin Sodium (Lovenox) 40 mg SC DAILY [facility] Last Admin: 11/26/17 10:29 Dose: 40 mg Gabapentin (Neurontin) 100 mg PO TID [facility] Last Admin: 11/26/17 13:56 Dose: 100 mg Levothyroxine Sodium (Synthroid) 75 mcg PO DAILY@0630 [facility] Last Admin: 11/26/17 05:37 Dose: 75 mcg Methylprednisolone (Solu-Medrol) 40 mg IVP Q12 [facility] Last Admin: 11/26/17 10:28 Dose: 40 mg Roflumilast (Daliresp) 500 mcg PO DAILY [facility] Last Admin: 11/26/17 10:29 Dose: 500 mcg Sertraline HCl (Zoloft) 25 mg PO DAILY [facility] Last Admin: 11/26/17 12:30 Dose: 25 mg - Labs Labs: 11/24/17 14:57 11/25/17 07:25 PT 12.8 SECONDS (9.7-12.2) H 11/24/17 14:57 INR 1.2 11/24/17 14:57 APTT 37 SECONDS (21-34) H 11/24/17 14:57
--- NOTE | 2017-11-26 17:17 | CP.PCM.PN ---
Subjective - Date & Time of Evaluation Date of Evaluation: 11/26/17 Time of Evaluation: 20:00 - Subjective Subjective: pt seen and examained at bedside, Denies cough, denies fever chills, denies Objective - Vital Signs/Intake and Output Vital Signs (last 24 hours): Temp Pulse Resp BP Pulse Ox 97.6 F 77 18 114/74 99 11/26/17 07:00 11/26/17 07:00 11/26/17 07:00 11/26/17 07:00 11/26/17 07:00 - Medications Medications: Current Medications Albuterol/Ipratropium (Duoneb 3 Mg/0.5 Mg (3 Ml) Ud) 3 ml INH RQ6 [facility] Last Admin: 11/26/17 13:46 Dose: 3 ml Cilostazol (Pletal) 100 mg PO DAILY [facility] Last Admin: 11/26/17 10:29 Dose: 100 mg Diltiazem HCl (Cardizem Cd) 120 mg PO HS [facility] Last Admin: 11/25/17 21:46 Dose: 120 mg Diphenoxylate HCl/Atropine (Lomotil 0.025-2.5 Mg Tablet) 1 tab PO Q4 PRN PRN Reason: Diarrhea Last Admin: 11/26/17 16:50 Dose: 1 tab Enoxaparin Sodium (Lovenox) 40 mg SC DAILY [facility] Last Admin: 11/26/17 10:29 Dose: 40 mg Gabapentin (Neurontin) 100 mg PO TID [facility] Last Admin: 11/26/17 13:56 Dose: 100 mg Levothyroxine Sodium (Synthroid) 75 mcg PO DAILY@0630 [facility] Last Admin: 11/26/17 05:37 Dose: 75 mcg Methylprednisolone (Solu-Medrol) 40 mg IVP Q12 [facility] Last Admin: 11/26/17 10:28 Dose: 40 mg Roflumilast (Daliresp) 500 mcg PO DAILY [facility] Last Admin: 11/26/17 10:29 Dose: 500 mcg Sertraline HCl (Zoloft) 25 mg PO DAILY [facility] Last Admin: 11/26/17 12:30 Dose: 25 mg - Labs Labs: 11/24/17 14:57 11/25/17 07:25 PT 12.8 SECONDS (9.7-12.2) H 11/24/17 14:57 INR 1.2 11/24/17 14:57 APTT 37 SECONDS (21-34) H 11/24/17 14:57
[2017-11-26] MEDS ORDERED: Atropine-Diphenoxylate 0.025-2.5 mg Tab PO ONE ×2 (18:45→19:15)
[2017-11-26] MEDS: diltiaZEM 120 mg/24 Hours CD Cap PO SCH (21:17)
[2017-11-27] MEDS: Albuterol-Ipratrop 3 mg / 0.5 (3 ml) UD INH SCH ×5 (01:06→19:54)
[2017-11-27] MEDS: Levothyroxine 75 MCG TAB PO SCH (07:00)
[2017-11-27] MEDS: MethylPREDNISolone 40 mg Vial IVP SCH ×2 (10:00→21:27)
[2017-11-27] MEDS: Cilostazol 100 mg Tab UD PO SCH (10:00)
[2017-11-27] MEDS: Enoxaparin 40 mg Syringe SC SCH (10:01)
[2017-11-27] MEDS: Atropine-Diphenoxylate 0.025-2.5 mg Tab PO PRN (10:07)
--- NOTE | 2017-11-27 17:32 | CP.PCM.PN ---
Subjective - Date & Time of Evaluation Date of Evaluation: 11/27/17 Time of Evaluation: 10:00 - Subjective Subjective: Patient seen and examined at bedside today. Patient was resting comfortably in bed in no acute distress. Patient states she is still in pain. Assessment/Plan: 1. COPD Exacerbation - CT Chest 11/24: Areas of bilateral parenchymal scarring. NO pulmonary nodule, mass or consolidation. No pleural effusion. Bone island in left lateral 5th rib - CXR 11/24: No active disease - Continue Nebulizer treatment - Continue Solumedrol 40mg Q12 2. Chest Wall Contusion - Pain medication for chest pain - Management per primary team Objective - Vital Signs/Intake and Output Vital Signs (last 24 hours): Temp Pulse Resp BP Pulse Ox 98.8 F 100 H 20 135/73 100 11/27/17 15:13 11/27/17 15:13 11/27/17 15:13 11/27/17 15:13 11/27/17 15:13 Intake and Output: 11/27/17 11/27/17 06:59 18:59 Intake Total 1500 Balance 1500 - Medications Medications: Current Medications Albuterol/Ipratropium (Duoneb 3 Mg/0.5 Mg (3 Ml) Ud) 3 ml INH RQ6 [facility] Last Admin: 11/27/17 13:25 Dose: 3 ml Cilostazol (Pletal) 100 mg PO DAILY [facility] Last Admin: 11/27/17 10:00 Dose: 100 mg Diltiazem HCl (Cardizem Cd) 120 mg PO HS [facility] Last Admin: 11/26/17 21:17 Dose: 120 mg Diphenoxylate HCl/Atropine (Lomotil 0.025-2.5 Mg Tablet) 1 tab PO Q4 PRN PRN Reason: Diarrhea Last Admin: 11/27/17 10:07 Dose: 1 tab Enoxaparin Sodium (Lovenox) 40 mg SC DAILY [facility] Last Admin: 11/27/17 10:01 Dose: 40 mg Gabapentin (Neurontin) 100 mg PO TID [facility] Last Admin: 11/27/17 10:00 Dose: 100 mg Levothyroxine Sodium (Synthroid) 75 mcg PO DAILY@0630 [facility] Last Admin: 11/27/17 07:00 Dose: 75 mcg Methylprednisolone (Solu-Medrol) 40 mg IVP Q12 [facility] Last Admin: 11/27/17 10:00 Dose: 40 mg Roflumilast (Daliresp) 500 mcg PO DAILY [facility] Last Admin: 11/27/17 10:00 Dose: 500 mcg Sertraline HCl (Zoloft) 25 mg PO DAILY [facility] Last Admin: 11/27/17 10:00 Dose: 25 mg - Labs Labs: 11/24/17 14:57 11/25/17 07:25 PT 12.8 SECONDS (9.7-12.2) H 11/24/17 14:57 INR 1.2 11/24/17 14:57 APTT 37 SECONDS (21-34) H 11/24/17 14:57 Assessment and Plan (1) COPD exacerbation Status: Acute (2) Chest wall contusion Status: Acute
[2017-11-27] MEDS: diltiaZEM 120 mg/24 Hours CD Cap PO SCH (21:27)
--- NOTE | 2017-11-27 23:46 | CP.PCM.PN ---
Subjective - Date & Time of Evaluation Date of Evaluation: 11/27/17 Time of Evaluation: 18:00 - Subjective Subjective: Pt is anxious, restless, afebrile, no nausea, vomiting Objective - Vital Signs/Intake and Output Vital Signs (last 24 hours): Temp Pulse Resp BP Pulse Ox 98.8 F 120 H 20 139/89 100 11/27/17 15:13 11/27/17 21:28 11/27/17 21:28 11/27/17 21:28 11/27/17 15:13 - Medications Medications: Current Medications Albuterol/Ipratropium (Duoneb 3 Mg/0.5 Mg (3 Ml) Ud) 3 ml INH RQ6 [facility] Last Admin: 11/27/17 19:54 Dose: 3 ml Cilostazol (Pletal) 100 mg PO DAILY [facility] Last Admin: 11/27/17 10:00 Dose: 100 mg Dicyclomine HCl (Bentyl) 10 mg IM Q8 PRN PRN Reason: Abd pain Diltiazem HCl (Cardizem Cd) 120 mg PO HS [facility] Last Admin: 11/27/17 21:27 Dose: 120 mg Diphenoxylate HCl/Atropine (Lomotil 0.025-2.5 Mg Tablet) 1 tab PO Q4 PRN PRN Reason: Diarrhea Last Admin: 11/27/17 10:07 Dose: 1 tab Enoxaparin Sodium (Lovenox) 40 mg SC DAILY [facility] Last Admin: 11/27/17 10:01 Dose: 40 mg Gabapentin (Neurontin) 100 mg PO TID [facility] Last Admin: 11/27/17 18:40 Dose: 100 mg Levothyroxine Sodium (Synthroid) 75 mcg PO DAILY@0630 [facility] Last Admin: 11/27/17 07:00 Dose: 75 mcg Methylprednisolone (Solu-Medrol) 40 mg IVP Q12 [facility] Last Admin: 11/27/17 21:27 Dose: 40 mg Roflumilast (Daliresp) 500 mcg PO DAILY [facility] Last Admin: 11/27/17 10:00 Dose: 500 mcg Sertraline HCl (Zoloft) 25 mg PO DAILY [facility] Last Admin: 11/27/17 10:00 Dose: 25 mg - Labs Labs: 11/24/17 14:57 11/25/17 07:25 PT 12.8 SECONDS (9.7-12.2) H 11/24/17 14:57 INR 1.2 11/24/17 14:57 APTT 37 SECONDS (21-34) H 11/24/17 14:57 - Constitutional Appears: No Acute Distress - Head Exam Head Exam: ATRAUMATIC, NORMAL INSPECTION, NORMOCEPHALIC - Eye Exam Eye Exam: EOMI, Normal appearance, PERRL Pupil Exam: NORMAL ACCOMODATION, PERRL - ENT Exam ENT Exam: Mucous Membranes Moist, Normal Exam - Respiratory Exam Respiratory Exam: Clear to Ausculation Bilateral, NORMAL BREATHING PATTERN - Cardiovascular Exam Cardiovascular Exam: REGULAR RHYTHM, +S1, +S2. absent: Murmur - GI/Abdominal Exam GI & Abdominal Exam: Soft, Normal Bowel Sounds. absent: Tenderness Assessment and Plan (1) COPD exacerbation Status: Acute (2) Anxiety Status: Acute (3) HTN (hypertension) Status: Acute (4) Depressed Status: Acute
[2017-11-28] MEDS: Albuterol-Ipratrop 3 mg / 0.5 (3 ml) UD INH SCH ×3 (01:09→13:13)
[2017-11-28] MEDS: Levothyroxine 75 MCG TAB PO SCH (06:13)
[2017-11-28 08:46] LABS: BASO % 0.1 % (0.0-2.0); LYMPH # 0.5 K/uL (1.0-4.3); LYMPH % 4.9 % (20.0-40.0); MEAN CELL VOLUME 93.6 fL (81.0-99.0); MEAN CORPUSCULAR HEMOGLOBIN 32.7 pg (27.0-31.0); MEAN CORPUSCULAR HGB CONC 34.9 g/dL (33.0-37.0); MEAN PLATELET VOLUME 7.8 fL (7.2-11.7); MONO # 0.7 K/uL (0.0-0.8); NEUT # 9.3 K/uL (1.8-7.0); NRBC % 0.1 % (0.0-2.0); RBC 2.81 Mil/uL (3.80-5.20); RED CELL DISTRIBUTION WIDTH 15.4 % (11.5-14.5)
[2017-11-28 08:56] LABS: HEMOGLOBIN 9.2 g/dL (11.0-16.0); PLATELET COUNT 393 K/uL (130-400); WHITE BLOOD COUNT 10.6 K/uL (4.8-10.8)
[2017-11-28 09:15] LABS: BLOOD UREA NITROGEN 37 mg/dL (7-17); CALCIUM 8.5 mg/dl (8.6-10.4); GFR AFRICAN-AMERICAN > 60; GFR NON-AFRICAN AMERICAN 60
[2017-11-28 09:30] LABS: LYMPHOCYTE 6 % (20-40); MONOCYTE 7 % (0-10); NEUTROPHIL 87 % (50-75); PLATELET ESTIMATE NORMAL (NORMAL); TOTAL CELLS COUNTED 100
[2017-11-28 09:31] LABS: ANISOCYTOSIS SLIGHT; HYPOCHROMIC SLIGHT; LARGE PLATELETS PRESENT; MICROCYTOSIS SLIGHT; POIKILOCYTOSIS SLIGHT; POLYCHROMIC SLIGHT
[2017-11-28] MEDS: MethylPREDNISolone 40 mg Vial IVP SCH (10:43)
[2017-11-28] MEDS ORDERED: Magnesium Hydroxide Susp 30 ml UD PO ONE (11:04)
[2017-11-28] MEDS: Cilostazol 100 mg Tab UD PO SCH (11:24)
[2017-11-28] MEDS: Enoxaparin 40 mg Syringe SC SCH (12:04)
[2017-11-28] MEDS: Vancomycin 125 MG/5 ML SOLN (ORAL/RECTAL) PO SCH ×3 (14:00→22:14)
--- NOTE | 2017-11-28 17:53 | CP.PCM.PN ---
Subjective - Date & Time of Evaluation Date of Evaluation: 11/28/17 Time of Evaluation: 07:00 - Subjective Subjective: Pulmonary Follow up, Covering Dr. Greer The patient was Seen and examined by me at the bedside, Events reviewed Remains with Tachcardia, on Telemetry, Albuterol was discontinued Improved Respiratory status Awake, comfortable, NAD Breathing unlabored, on 3L NC O2 sat 95%. Pt AAO x3. Alert, Denies any chest pain, SOB or Palpitations Afebrile, NSR on the monitor Objective - Vital Signs/Intake and Output Vital Signs (last 24 hours): Temp Pulse Resp BP Pulse Ox 98.1 F 94 H 20 127/77 97 11/28/17 16:23 11/28/17 16:23 11/28/17 16:23 11/28/17 16:23 11/28/17 16:23 Intake and Output: 11/28/17 11/28/17 06:59 18:59 Intake Total 100 100 Balance 100 100 - Medications Medications: Current Medications Cilostazol (Pletal) 100 mg PO DAILY [facility] Last Admin: 11/28/17 11:24 Dose: 100 mg Dicyclomine HCl (Bentyl) 10 mg IM Q8 PRN PRN Reason: Abd pain Last Admin: 11/28/17 08:42 Dose: 10 mg Diltiazem HCl (Cardizem Cd) 120 mg PO HS [facility] Last Admin: 11/27/17 21:27 Dose: 120 mg Diphenoxylate HCl/Atropine (Lomotil 0.025-2.5 Mg Tablet) 1 tab PO Q4 PRN PRN Reason: Diarrhea Last Admin: 11/27/17 10:07 Dose: 1 tab Enoxaparin Sodium (Lovenox) 40 mg SC DAILY [facility] Last Admin: 11/28/17 12:04 Dose: 40 mg Gabapentin (Neurontin) 100 mg PO TID [facility] Last Admin: 11/28/17 14:00 Dose: 100 mg Ipratropium [place] (Atrovent) 0.5 mg IH RQ6 [facility] Levothyroxine Sodium (Synthroid) 75 mcg PO DAILY@0630 [facility] Last Admin: 11/28/17 06:13 Dose: 75 mcg Methylprednisolone (Solu-Medrol) 40 mg IVP DAILY [facility] Pantoprazole Sodium (Protonix Inj) 40 mg IVP DAILY [facility] Roflumilast (Daliresp) 500 mcg PO DAILY [facility] Last Admin: 11/28/17 11:24 Dose: 500 mcg Fluticasone/Salmeterol (Advair Diskus 250/50) 1 puff INH RQ12 [facility] Sertraline HCl (Zoloft) 25 mg PO DAILY [facility] Last Admin: 11/28/17 10:42 Dose: 25 mg Vancomycin HCl (Vancocin (Oral Or Rectal Use)) 125 mg PO QID [facility] PRN Reason: Protocol Last Admin: 11/28/17 14:00 Dose: 125 mg - Labs Labs: 11/28/17 08:27 11/28/17 08:27 PT 12.8 SECONDS (9.7-12.2) H 11/24/17 14:57 INR 1.2 11/24/17 14:57 APTT 37 SECONDS (21-34) H 11/24/17 14:57 - Constitutional Appears: Well, Non-toxic - Head Exam Head Exam: ATRAUMATIC - ENT Exam ENT Exam: Mucous Membranes Moist - Neck Exam Neck Exam: Full ROM. absent: Lymphadenopathy, Tenderness - Respiratory Exam Respiratory Exam: Decreased Breath Sounds, Clear to Ausculation Bilateral, Prolonged Expiratory Phase. absent: Accessory Muscle Use, Chest Wall Tenderness , Rales, Rhonchi, Wheezes - Cardiovascular Exam Cardiovascular Exam: Tachycardia - GI/Abdominal Exam GI & Abdominal Exam: Soft, Normal Bowel Sounds. absent: Distended, Firm, Guarding, Rigid - Extremities Exam Extremities Exam: Full ROM, Normal Capillary Refill. absent: Calf Tenderness, Joint Swelling - Back Exam Back Exam: absent: CVA tenderness (L), CVA tenderness (R) - Neurological Exam Neurological Exam: Alert, Awake, CN II-XII Intact Assessment and Plan (1) COPD exacerbation Assessment & Plan: - Continue Nebulizer treatment - Roflumilast (Daliresp) 500 mcg PO DAILY - Continue Solumedrol 40mg Q12 Status: Acute (2) Anxiety Assessment & Plan: On Zoloft) 25 mg PO DAILY PRN Xanax Status: Acute (3) Sinus tachycardia Assessment & Plan: Telelmetry monitoring Status: Acute (4) Chest wall contusion Assessment & Plan: - Pain medication for chest pain - Management per primary team Status: Acute
[2017-11-28] MEDS: Fluticasone-Salmeterol 250-50mcg Diskus INH SCH (19:06)
[2017-11-28] MEDS: Ipratropium 0.02% Inhal Soln (0.5 mg/2.5 ml) UD IH SCH (19:06)
[2017-11-28] MEDS: diltiaZEM 120 mg/24 Hours CD Cap PO SCH (22:14)
[2017-11-29] MEDS: Ipratropium 0.02% Inhal Soln (0.5 mg/2.5 ml) UD IH SCH ×4 (01:20→20:08)
[2017-11-29] MEDS: Levothyroxine 75 MCG TAB PO SCH (05:55)
[2017-11-29] MEDS: Fluticasone-Salmeterol 250-50mcg Diskus INH SCH ×2 (07:33→20:08)
--- NOTE | 2017-11-29 09:28 | CP.PCM.PN ---
Subjective - Date & Time of Evaluation Date of Evaluation: 11/29/17 Time of Evaluation: 18:00 - Subjective Subjective: Pt seen and examined, more Alert, Denies any chest pain, SOB or Palpitations Afebrile, NSR on the monitor Objective - Vital Signs/Intake and Output Vital Signs (last 24 hours): Temp Pulse Resp BP Pulse Ox 98.3 F 77 18 107/65 100 11/29/17 07:20 11/29/17 07:20 11/29/17 07:20 11/29/17 07:20 11/29/17 07:20 Intake and Output: 11/29/17 11/29/17 06:59 18:59 Intake Total 120 Balance 120 - Medications Medications: Current Medications Cilostazol (Pletal) 100 mg PO DAILY [facility] Last Admin: 11/28/17 11:24 Dose: 100 mg Dicyclomine HCl (Bentyl) 10 mg IM Q8 PRN PRN Reason: Abd pain Last Admin: 11/28/17 08:42 Dose: 10 mg Diltiazem HCl (Cardizem Cd) 120 mg PO HS [facility] Last Admin: 11/28/17 22:14 Dose: 120 mg Diphenoxylate HCl/Atropine (Lomotil 0.025-2.5 Mg Tablet) 1 tab PO Q4 PRN PRN Reason: Diarrhea Last Admin: 11/27/17 10:07 Dose: 1 tab Enoxaparin Sodium (Lovenox) 40 mg SC DAILY [facility] Last Admin: 11/28/17 12:04 Dose: 40 mg Gabapentin (Neurontin) 100 mg PO TID [facility] Last Admin: 11/28/17 18:13 Dose: 100 mg Ipratropium [place] (Atrovent) 0.5 mg IH RQ6 [facility] Last Admin: 11/29/17 07:33 Dose: 0.5 mg Levothyroxine Sodium (Synthroid) 75 mcg PO DAILY@0630 [facility] Last Admin: 11/29/17 05:55 Dose: 75 mcg Lorazepam (Ativan) 0.5 mg PO BID [facility] Methylprednisolone (Solu-Medrol) 40 mg IVP DAILY [facility] Pantoprazole Sodium (Protonix Inj) 40 mg IVP DAILY [facility] Roflumilast (Daliresp) 500 mcg PO DAILY [facility] Last Admin: 11/28/17 11:24 Dose: 500 mcg Fluticasone/Salmeterol (Advair Diskus 250/50) 1 puff INH RQ12 [facility] Last Admin: 11/29/17 07:33 Dose: 1 puff Sertraline HCl (Zoloft) 25 mg PO DAILY [facility] Last Admin: 11/28/17 10:42 Dose: 25 mg Vancomycin HCl (Vancocin (Oral Or Rectal Use)) 125 mg PO QID [facility] PRN Reason: Protocol Last Admin: 11/28/17 22:14 Dose: 125 mg - Labs Labs: 11/28/17 08:27 11/28/17 08:27 PT 12.8 SECONDS (9.7-12.2) H 11/24/17 14:57 INR 1.2 11/24/17 14:57 APTT 37 SECONDS (21-34) H 11/24/17 14:57 Assessment and Plan (1) COPD exacerbation Status: Acute (2) Anxiety Status: Acute (3) HTN (hypertension) Status: Acute (4) Depressed Status: Acute
--- NOTE | 2017-11-29 09:28 | CP.PCM.PN ---
Subjective - Date & Time of Evaluation Date of Evaluation: 11/28/17 Time of Evaluation: 19:00 - Subjective Subjective: The patient was Seen and examined , she is anxious, less short of breath, c/o diarrhea Remains with Tachcardia, on Telemetry, Albuterol was discontinued Improved Respiratory status Awake, comfortable, NAD Breathing unlabored, on 3L NC O2 sat 95%. Objective - Vital Signs/Intake and Output Vital Signs (last 24 hours): Temp Pulse Resp BP Pulse Ox 98.3 F 77 18 107/65 100 11/29/17 07:20 11/29/17 07:20 11/29/17 07:20 11/29/17 07:20 11/29/17 07:20 Intake and Output: 11/29/17 11/29/17 06:59 18:59 Intake Total 120 Balance 120 - Medications Medications: Current Medications Cilostazol (Pletal) 100 mg PO DAILY [facility] Last Admin: 11/28/17 11:24 Dose: 100 mg Dicyclomine HCl (Bentyl) 10 mg IM Q8 PRN PRN Reason: Abd pain Last Admin: 11/28/17 08:42 Dose: 10 mg Diltiazem HCl (Cardizem Cd) 120 mg PO HS [facility] Last Admin: 11/28/17 22:14 Dose: 120 mg Diphenoxylate HCl/Atropine (Lomotil 0.025-2.5 Mg Tablet) 1 tab PO Q4 PRN PRN Reason: Diarrhea Last Admin: 11/27/17 10:07 Dose: 1 tab Enoxaparin Sodium (Lovenox) 40 mg SC DAILY [facility] Last Admin: 11/28/17 12:04 Dose: 40 mg Gabapentin (Neurontin) 100 mg PO TID [facility] Last Admin: 11/28/17 18:13 Dose: 100 mg Ipratropium [place] (Atrovent) 0.5 mg IH RQ6 [facility] Last Admin: 11/29/17 07:33 Dose: 0.5 mg Levothyroxine Sodium (Synthroid) 75 mcg PO DAILY@0630 [facility] Last Admin: 11/29/17 05:55 Dose: 75 mcg Lorazepam (Ativan) 0.5 mg PO BID [facility] Methylprednisolone (Solu-Medrol) 40 mg IVP DAILY [facility] Pantoprazole Sodium (Protonix Inj) 40 mg IVP DAILY [facility] Roflumilast (Daliresp) 500 mcg PO DAILY [facility] Last Admin: 11/28/17 11:24 Dose: 500 mcg Fluticasone/Salmeterol (Advair Diskus 250/50) 1 puff INH RQ12 [facility] Last Admin: 11/29/17 07:33 Dose: 1 puff Sertraline HCl (Zoloft) 25 mg PO DAILY [facility] Last Admin: 11/28/17 10:42 Dose: 25 mg Vancomycin HCl (Vancocin (Oral Or Rectal Use)) 125 mg PO QID [facility] PRN Reason: Protocol Last Admin: 11/28/17 22:14 Dose: 125 mg - Labs Labs: 11/28/17 08:27 11/28/17 08:27 PT 12.8 SECONDS (9.7-12.2) H 11/24/17 14:57 INR 1.2 11/24/17 14:57 APTT 37 SECONDS (21-34) H 11/24/17 14:57 - Constitutional Appears: No Acute Distress - Head Exam Head Exam: ATRAUMATIC, NORMAL INSPECTION, NORMOCEPHALIC - Eye Exam Eye Exam: EOMI, Normal appearance, PERRL Pupil Exam: NORMAL ACCOMODATION, PERRL - Respiratory Exam Respiratory Exam: Decreased Breath Sounds, Rales, Rhonchi - Cardiovascular Exam Cardiovascular Exam: REGULAR RHYTHM, +S1, +S2. absent: Murmur - GI/Abdominal Exam GI & Abdominal Exam: Soft, Normal Bowel Sounds. absent: Tenderness - Rectal Exam Rectal Exam: Deferred Assessment and Plan (1) COPD exacerbation Status: Acute (2) Anxiety Status: Acute (3) HTN (hypertension) Status: Acute (4) Depressed Status: Acute
[2017-11-29] MEDS: MethylPREDNISolone 40 mg Vial IVP SCH (09:37)
[2017-11-29] MEDS: Enoxaparin 40 mg Syringe SC SCH (09:38)
[2017-11-29] MEDS: Cilostazol 100 mg Tab UD PO SCH (09:38)
[2017-11-29] MEDS: Vancomycin 125 MG/5 ML SOLN (ORAL/RECTAL) PO SCH ×4 (12:10→21:46)
[2017-11-29] MEDS ORDERED: Iodixanol 320 MG/ML 100 ML BOTTLE IV ONE (15:08)
--- NOTE | 2017-11-29 16:04 | CT ---
PROCEDURE: CT Chest with contrast (Pulmonary Angiogram) HISTORY: tachycardia w/shortness of breath and chest pain COMPARISON: Comparison made with CT scan chest 11/24/2017 TECHNIQUE: Axial computed tomography images were obtained of the chest in the pulmonary arterial phase of enhancement. Coronal and sagittal reformatted images were created and reviewed. Intravenous contrast dose: 100 cc Visipaque 320. Radiation dose: Total exam DLP = 171.88 mGy-cm. This CT exam was performed using one or more of the following dose reduction techniques: Automated exposure control, adjustment of the mA and/or kV according to patient size, and/or use of iterative reconstruction technique. FINDINGS: PULMONARY ARTERIES: The visualized pulmonary trunk, right and left main, lobar, segmental and proximal subsegmental branches of the pulmonary arteries are well opacified with no definitive filling defects seen to suggest acute central pulmonary embolus. Pulmonary trunk is dilated measuring approximately 3.1 cm; findings could be secondary to underlying pulmonary arterial hypertension. Clinical correlation recommended. AORTA: No acute findings as above. . No thoracic aortic aneurysm. LUNGS: Re- demonstrated are centrilobular emphysematous changes upper lobe predominance. PLEURAL SPACES: Unremarkable. No effusion or pneumothorax. HEART: Heart size is within range normal. Trace pericardial effusion suspected LYMPH NODES: Re- demonstrated are calcified left hilar lymph nodes consistent with prior exposure to granulomatous disease process. Clinical correlation recommended. Few tiny nonspecific mediastinal lymph nodes are present. . Central airways are midline and patent. No large central endoluminal lesions are identified. BONES, CHEST WALL: Unremarkable. No fracture or destructive lesion . There is a elliptical shaped mass lesion right breast measuring 17.7 x 15.6 mm. Follow-up mammography recommended for further evaluation to exclude the possibility of malignancy. Mild multilevel degenerative spondylosis of the thoracic spine. There are chronic appearing anterior wedge deformities of several mid thoracic segments again noted. . There are few tiny sclerotic foci scattered throughout several left ribs likely representing small bone islands or osteomas. OTHER FINDINGS: There appears to be mild dilatation of the distal thoracic aorta and upper abdominal aorta with peripheral soft and calcified atherosclerotic plaque. . Scattered splenic granulomata consistent with prior exposure to granulomatous disease process. IMPRESSION: No evidence of acute central pulmonary embolus. Dilated pulmonary trunk ; findings may represent pulmonary arterial hypertension. Clinical correlation recommended. Centrilobular emphysematous changes upper lobe predominance. The scarring also seen in the right lower lobe bordering the inferior margin of the major fissure. There is also thickening of the left major fissure with curvilinear scarring in the left upper lobe. Right breast mass as above ; recommend followup mammography to exclude the possibility of neoplasm. Mild dilatation of the lower thoracic/upper abdominal aorta associated with peripheral soft and partially calcified atherosclerotic plaque.
--- NOTE | 2017-11-29 16:40 | CP.PCM.PN ---
Subjective - Date & Time of Evaluation Date of Evaluation: 11/29/17 Time of Evaluation: 10:20 - Subjective Subjective: Pulmonary Follow Up Note Patient seen and examined at bedside today. Patient was resting comfortably in bed. Patient states she feels cold and has chills. Patient states her shortness of breath is worse today. She complains of pain on her left side from the fall. Assessment/Plan: 1. COPD Exacerbation - CT Chest 11/24: Areas of bilateral parenchymal scarring. No pulmonary nodule, mass or consolidation. No pleural effusion. Bone island in left lateral 5th rib - CXR 11/24: No active disease - Continue Nebulizer treatment - Continue Solumedrol 40mg Q12 2. Tachycardia - Albuterol discontinued yesterday - CT with contrast to rule out pulmonary embolism 3. Chest Wall Contusion - Pain medication for chest pain - Management per primary team Objective - Vital Signs/Intake and Output Vital Signs (last 24 hours): Temp Pulse Resp BP Pulse Ox 98.3 F 99 H 18 107/65 100 11/29/17 07:20 11/29/17 13:00 11/29/17 07:20 11/29/17 07:20 11/29/17 07:20 Intake and Output: 11/29/17 11/29/17 06:59 18:59 Intake Total 120 600 Balance 120 600 - Medications Medications: Current Medications Cilostazol (Pletal) 100 mg PO DAILY [facility] Last Admin: 11/29/17 09:38 Dose: 100 mg Dicyclomine HCl (Bentyl) 10 mg IM Q8 PRN PRN Reason: Abd pain Last Admin: 11/28/17 08:42 Dose: 10 mg Diltiazem HCl (Cardizem Cd) 120 mg PO HS [facility] Last Admin: 11/28/17 22:14 Dose: 120 mg Diphenoxylate HCl/Atropine (Lomotil 0.025-2.5 Mg Tablet) 1 tab PO Q4 PRN PRN Reason: Diarrhea Last Admin: 11/27/17 10:07 Dose: 1 tab Enoxaparin Sodium (Lovenox) 40 mg SC DAILY [facility] Last Admin: 11/29/17 09:38 Dose: 40 mg Gabapentin (Neurontin) 100 mg PO TID [facility] Last Admin: 11/29/17 13:12 Dose: 100 mg Ipratropium [place] (Atrovent) 0.5 mg IH RQ6 [facility] Last Admin: 11/29/17 13:20 Dose: 0.5 mg Levothyroxine Sodium (Synthroid) 75 mcg PO DAILY@0630 [facility] Last Admin: 11/29/17 05:55 Dose: 75 mcg Lorazepam (Ativan) 0.5 mg PO BID [facility] Last Admin: 11/29/17 09:38 Dose: 0.5 mg Methylprednisolone (Solu-Medrol) 40 mg IVP DAILY [facility] Last Admin: 11/29/17 09:37 Dose: 40 mg Pantoprazole Sodium (Protonix Inj) 40 mg IVP DAILY [facility] Last Admin: 11/29/17 09:36 Dose: 40 mg Roflumilast (Daliresp) 500 mcg PO DAILY [facility] Last Admin: 11/29/17 09:38 Dose: 500 mcg Fluticasone/Salmeterol (Advair Diskus 250/50) 1 puff INH RQ12 [facility] Last Admin: 11/29/17 07:33 Dose: 1 puff Sertraline HCl (Zoloft) 25 mg PO DAILY [facility] Last Admin: 11/29/17 11:00 Dose: 25 mg Vancomycin HCl (Vancocin (Oral Or Rectal Use)) 125 mg PO QID [facility] PRN Reason: Protocol Last Admin: 11/29/17 13:12 Dose: 125 mg - Labs Labs: 11/28/17 08:27 11/28/17 08:27 PT 12.8 SECONDS (9.7-12.2) H 11/24/17 14:57 INR 1.2 11/24/17 14:57 APTT 37 SECONDS (21-34) H 11/24/17 14:57 Assessment and Plan (1) COPD exacerbation Status: Acute (2) Chest wall contusion Status: Acute
[2017-11-29] MEDS: Albuterol-Ipratrop 3 mg / 0.5 (3 ml) UD INH SCH (20:08)
[2017-11-29] MEDS: diltiaZEM 120 mg/24 Hours CD Cap PO SCH (21:46)
[2017-11-30] MEDS: Ipratropium 0.02% Inhal Soln (0.5 mg/2.5 ml) UD IH SCH ×4 (02:01→19:42)
[2017-11-30] MEDS: Levothyroxine 75 MCG TAB PO SCH (05:49)
--- NOTE | 2017-11-30 07:10 | CON ---
DATE: 11/29/2017 PSYCHIATRIC CONSULTATION CHIEF COMPLAINT AND REASON FOR CONSULTATION: The patient was referred by Dr. Patel for evaluation, co-management for depression, anxiety. The patient has been taking Klonopin at home but states that she fell after she took the medication. HISTORY OF PRESENT ILLNESS: This is a case of 82-year-old female who lives alone. The patient has history of depression, anxiety. She was taking Klonopin at home 1 mg at bedtime. The patient was admitted after she fell at home and had left-sided chest pain. The patient states that she has been taking Klonopin at home, but she said before she came to the hospital she took it and she became dizzy and fell. The patient is now off Klonopin but taking Ativan 0.5 mg b.i.d. According to the nurse practitioner, she was very anxious and restless yesterday and uncooperative, but today seems to be doing better. The patient also is on Zoloft 25 mg p.o. daily. She reports she has been depressed ever since one of her sons 3 years ago. Her late son used to take care of her and they used to live together. She has another son who lives at the [facility] is helping her. 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 She also has agreed to go for subacute rehab to [facility] for reconditioning once she is medically cleared. The patient is a patient of Dr. Patel. PAST PSYCH HISTORY: History of depression, anxiety, has been on clonazepam before. MEDICAL HISTORY: The patient has history of fall and history of COPD. The patient used to be a smoker. She has history of hypertension, PAD, colitis, as stated history of fall, history of diarrhea, diastolic dysfunction. DRUG AND ALCOHOL HISTORY: The patient used to be a smoker. She said she used to smoke five to six cigarettes a day, but quit 3 years ago. No alcohol history. PSYCHOSOCIAL HISTORY: The patient lives alone. 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 One of her son 3 years ago and used to take care of her. CURRENT MEDICATIONS: List of current medications that the patient is taking; the patient is on Ativan 0.5 mg b.i.d. She is also on fluticasone. The patient is on Bentyl, Cardizem, Daliresp. She is also on magnesium, gabapentin, Pletal, pantoprazole, Synthroid, sertraline 25 mg daily and vancomycin. PHYSICAL EXAMINATION: VITAL SIGNS: Temperature is 98.3, 77, 107/65, respirations 18, oxygen sat is 100% on nasal cannula. REVIEW OF SYSTEMS: CONSTITUTIONAL: The patient is alert and oriented x3, has mild dyspnea but cooperative. SKIN: No diaphoresis. HEENT: No headache or dizziness. NECK: Supple. RESPIRATORY: Mild dyspnea as stated. CARDIOVASCULAR: Chest pain. GASTROINTESTINAL: According to the nurse, she has very poor appetite. EXTREMITIES: Gait is unsteady. MUSCULOSKELETAL: Feels weak. NEURO: Alert and oriented x3. GENITOURINARY: No dysuria. MENTAL STATUS EXAMINATION: Elderly female who was 5 feet and weighs 96 pounds, oriented x3. Mood is a little brighter, still dysphoric at times. Affect is reactive. Speech is spontaneous. Thought process coherent. Thought content, the patient wants to go to [facility] for subacute rehab. No overt psychosis. No suicidal ideation. The patient is still feeling depressed over the of her son 3 years ago. Attention and memory seems to be fair. Insight and judgment fair. Impulse control is fair. LABORATORY DATA: Review of her labs, the patient's WBC is 10.6. Her H and H is 9.2/26.3. Patient's creatinine is 0.9. GFR is greater than 60. 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 RECOMMENDATIONS: The patient is seen, meds reviewed. We will keep the patient the Ativan 0.5 mg b.i.d. The patient was taking Klonopin at home, but she states that she fell after she took the medicine. Also we will keep the Zoloft 25 mg p.o. daily; however, we will check her TSH. The patient is on Synthroid to see what is her TSH value. The patient is willing to go for subacute rehab that at [facility] once medically cleared. For now, this hold off any change in psych meds. Thank you for the consult. Joni Walls MD [facility] # [id number]
[2017-11-30] MEDS: Fluticasone-Salmeterol 250-50mcg Diskus INH SCH ×2 (07:38→19:42)
--- NOTE | 2017-11-30 08:01 | CP.PCM.PN ---
Subjective - Date & Time of Evaluation Date of Evaluation: 11/30/17 Time of Evaluation: 07:40 - Subjective Subjective: patient seen and examined Complaining of diarrhea started last night Dyspnea on exertion CAT scan of the chest showed no pulmonary embolism. Right breast mass Afebrile Objective - Vital Signs/Intake and Output Vital Signs (last 24 hours): Temp Pulse Resp BP Pulse Ox 98.2 F 96 H 20 114/73 100 11/29/17 23:20 11/30/17 04:00 11/29/17 23:20 11/29/17 23:20 11/29/17 23:20 Intake and Output: 11/30/17 11/30/17 06:59 18:59 Intake Total 30 Balance 30 - Medications Medications: Current Medications Cilostazol (Pletal) 100 mg PO DAILY [facility] Last Admin: 11/29/17 09:38 Dose: 100 mg Dicyclomine HCl (Bentyl) 10 mg IM Q8 PRN PRN Reason: Abd pain Last Admin: 11/28/17 08:42 Dose: 10 mg Diltiazem HCl (Cardizem Cd) 120 mg PO HS [facility] Last Admin: 11/29/17 21:46 Dose: 120 mg Diphenoxylate HCl/Atropine (Lomotil 0.025-2.5 Mg Tablet) 1 tab PO Q4 PRN PRN Reason: Diarrhea Last Admin: 11/27/17 10:07 Dose: 1 tab Enoxaparin Sodium (Lovenox) 40 mg SC DAILY [facility] Last Admin: 11/29/17 09:38 Dose: 40 mg Gabapentin (Neurontin) 100 mg PO TID [facility] Last Admin: 11/29/17 18:33 Dose: 100 mg Ipratropium [place] (Atrovent) 0.5 mg IH RQ6 [facility] Last Admin: 11/30/17 07:38 Dose: 0.5 mg Levothyroxine Sodium (Synthroid) 75 mcg PO DAILY@0630 [facility] Last Admin: 11/30/17 05:49 Dose: 75 mcg Lorazepam (Ativan) 0.25 mg PO BID [facility] Methylprednisolone (Solu-Medrol) 40 mg IVP DAILY [facility] Last Admin: 11/29/17 09:37 Dose: 40 mg Pantoprazole Sodium (Protonix Inj) 40 mg IVP DAILY [facility] Last Admin: 11/29/17 09:36 Dose: 40 mg Roflumilast (Daliresp) 500 mcg PO DAILY [facility] Last Admin: 11/29/17 09:38 Dose: 500 mcg Fluticasone/Salmeterol (Advair Diskus 250/50) 1 puff INH RQ12 [facility] Last Admin: 11/30/17 07:38 Dose: 1 puff Sertraline HCl (Zoloft) 25 mg PO DAILY [facility] Last Admin: 11/29/17 11:00 Dose: 25 mg Vancomycin HCl (Vancocin (Oral Or Rectal Use)) 125 mg PO QID [facility] PRN Reason: Protocol Last Admin: 11/29/17 21:46 Dose: 125 mg - Labs Labs: 11/28/17 08:27 11/28/17 08:27 PT 12.8 SECONDS (9.7-12.2) H 11/24/17 14:57 INR 1.2 11/24/17 14:57 APTT 37 SECONDS (21-34) H 11/24/17 14:57 - Head Exam Head Exam: ATRAUMATIC, NORMOCEPHALIC - Eye Exam Eye Exam: Normal appearance - ENT Exam ENT Exam: Mucous Membranes Moist - Neck Exam Neck Exam: Normal Inspection - Respiratory Exam Respiratory Exam: Decreased Breath Sounds - Cardiovascular Exam Cardiovascular Exam: REGULAR RHYTHM - GI/Abdominal Exam GI & Abdominal Exam: Soft, Normal Bowel Sounds - Extremities Exam Extremities Exam: Full ROM, Normal Inspection Assessment and Plan (1) COPD exacerbation Assessment & Plan: Taper steroids continue nebulizer treatment CT chest showed pulmonary embolism but consistent with COPD and right breast mass Elevated CA 19 Pulmonary hypertension secondary to COPD Status: Acute (2) Chest wall contusion Status: Acute
--- NOTE | 2017-11-30 08:11 | PN ---
DATE: 11/29/2017 LOCATION: 665, bed A. SUBJECTIVE: This is an 82-year-old female seen and examined initially for GI consultation at the request by the admitting medical team on 11/28/2017, re-examined again today with persistent complaint of midepigastric and left lower and middle quadrant abdominal pain. No reported active bleeding. The entire chart is reviewed including but not limited to most recent lab and radiology study results, current and the previous medication list, current and the previous medical events. Case discussed with the staff at length and the patient denied any chest pain, palpitation, significant shortness of breath, chills or fever. Most recent lab results showed hemoglobin dropped to 9.2, hematocrit 26.3 with normal platelet count and normal white blood cells. BUN 37, creatinine normal, glucose 106, calcium 8.5 with reported low albumin and low total protein. Most recent lab and CAT scan of the head and the chest report is seen. PHYSICAL EXAMINATION: GENERAL: An 82-year-old female complaining of midepigastric pain as well as left upper and lower quadrant abdominal tenderness. VITAL SIGNS: Afebrile with pulse of 78, respiratory rate 20 to 22, blood pressure 120/68. HEENT: Showed pale, dry oral mucous membrane. Nonicteric sclerae. LUNGS: Few scattered crepitation. Decreased air entry at bases. HEART: Positive S1 and S2. ABDOMEN: Soft with generalized tenderness, but mainly midepigastric and left upper and left lower quadrant area. No mass or organomegaly. No rebound tenderness or guarding. RECTAL EXAMINATION: The patient refused. EXTREMITIES: Without significant clubbing, cyanosis, or edema. NEUROLOGIC: No reported new neurological deficit, sensory or motor. No reported focal deficits. IMPRESSION: 1. Anemia, to rule out upper versus lower gastrointestinal tract blood loss. 2. Rule out occult gastrointestinal malignancy. 3. Past medical history, including but not limited to chronic obstructive pulmonary disease, hypertension, hypothyroidism and severe anxiety syndrome with osteoarthritis. 4. Malnutrition with hypoalbuminemia. SUGGESTION: 1. Continue current management. 2. Upper endoscopy at a.m. 3. Carafate liquid. 4. Bentyl 10 mg one tablet twice a day p.r.n. 5. tab one twice a day p.o. 6. Further recommendation to follow and cancer markers to be ordered. Sarah Sanders MD [facility] # [id number]
[2017-11-30] MEDS ORDERED: Lactated Ringer's 1,000 ML IV ONE (09:16)
[2017-11-30] MEDS: Vancomycin 125 MG/5 ML SOLN (ORAL/RECTAL) PO SCH ×2 (10:00→14:13)
[2017-11-30] MEDS: Cilostazol 100 mg Tab UD PO SCH (10:00)
[2017-11-30] MEDS: Enoxaparin 40 mg Syringe SC SCH (10:00)
[2017-11-30] MEDS: Atropine-Diphenoxylate 0.025-2.5 mg Tab PO PRN (11:23)
--- NOTE | 2017-11-30 12:34 | CARD ---
APPROVED REPORT EKG Measurement Heart [id number] <Conclusion> Sinus rhythm with marked sinus arrhythmia Incomplete right bundle branch block Left anterior fascicular block Abnormal ECG
[2017-11-30] MEDS: MethylPREDNISolone 40 mg Vial IVP SCH (13:57)
[2017-11-30] MEDS: diltiaZEM 120 mg/24 Hours CD Cap PO SCH (21:21)
[2017-11-30] MEDS: Sucralfate 1 gm/10 ml Oral Susp UD PO SCH (21:21)
--- NOTE | 2017-11-30 22:54 | CP.PCM.PN ---
Subjective - Date & Time of Evaluation Date of Evaluation: 11/30/17 Time of Evaluation: 21:45 - Subjective Subjective: Pt seen and examined at bedside Objective - Vital Signs/Intake and Output Vital Signs (last 24 hours): Temp Pulse Resp BP Pulse Ox 98.6 F 90 18 128/66 100 11/30/17 15:00 11/30/17 21:26 11/30/17 15:00 11/30/17 21:26 11/30/17 15:00 Intake and Output: 11/30/17 12/01/17 18:59 06:59 Output Total 200 Balance -200 - Medications Medications: Current Medications Bisacodyl (Dulcolax) 10 mg PO ONCE ONE Stop: 12/02/17 17:01 Cilostazol (Pletal) 100 mg PO DAILY [facility] Last Admin: 11/30/17 10:00 Dose: Not Given Dicyclomine HCl (Bentyl) 10 mg IM Q8 PRN PRN Reason: Abd pain Last Admin: 11/28/17 08:42 Dose: 10 mg Diltiazem HCl (Cardizem Cd) 120 mg PO HS [facility] Last Admin: 11/30/17 21:21 Dose: 120 mg Diphenoxylate HCl/Atropine (Lomotil 0.025-2.5 Mg Tablet) 1 tab PO Q4 PRN PRN Reason: Diarrhea Last Admin: 11/30/17 11:23 Dose: 1 tab Enoxaparin Sodium (Lovenox) 40 mg SC DAILY [facility] Last Admin: 11/30/17 10:00 Dose: Not Given Gabapentin (Neurontin) 100 mg PO TID [facility] Last Admin: 11/30/17 17:48 Dose: 100 mg Ipratropium [place] (Atrovent) 0.5 mg IH RQ6 [facility] Last Admin: 11/30/17 19:42 Dose: 0.5 mg Levothyroxine Sodium (Synthroid) 75 mcg PO DAILY@0630 [facility] Last Admin: 11/30/17 05:49 Dose: 75 mcg Lorazepam (Ativan) 0.5 mg PO DAILY PRN PRN Reason: Anxiety Last Admin: 11/30/17 14:15 Dose: 0.5 mg Methylprednisolone (Solu-Medrol) 40 mg IVP DAILY [facility] Last Admin: 11/30/17 13:57 Dose: 40 mg Metoclopramide HCl (Reglan) 5 mg PO Q8H [facility] Pantoprazole Sodium (Protonix Inj) 40 mg IVP DAILY [facility] Last Admin: 11/30/17 13:56 Dose: 40 mg Polyethylene Glycol/Electrolytes (Golytely) 4,000 ml PO ONCE ONE Stop: 12/02/17 09:01 Roflumilast (Daliresp) 500 mcg PO DAILY [facility] Last Admin: 11/30/17 11:28 Dose: 500 mcg Fluticasone/Salmeterol (Advair Diskus 250/50) 1 puff INH RQ12 [facility] Last Admin: 11/30/17 19:42 Dose: 1 puff Sertraline HCl (Zoloft) 25 mg PO DAILY [facility] Last Admin: 11/30/17 14:06 Dose: 25 mg Sucralfate (Carafate Oral Susp) 1 gm PO ACBHS [facility] Last Admin: 11/30/17 21:21 Dose: 1 gm - Labs Labs: 11/28/17 08:27 11/28/17 08:27 PT 12.8 SECONDS (9.7-12.2) H 11/24/17 14:57 INR 1.2 11/24/17 14:57 APTT 37 SECONDS (21-34) H 11/24/17 14:57 Assessment and Plan (1) COPD exacerbation Status: Acute (2) Anxiety Status: Acute (3) HTN (hypertension) Status: Acute (4) Depressed Status: Acute
--- NOTE | 2017-11-30 23:14 | PN ---
DATE: 11/30/2017 SUBJECTIVE: The patient is seen. The patient went to EGD today. Today, she is less anxious and more cooperative. She is saying that she is taking too much medications. The patient is on Ativan 0.5 p.o. daily p.r.n. The patient has a history of recent fall.. She is also on Zoloft 25 mg daily. VITAL SIGNS: Temperature 98.6, pulse 94, blood pressure is 107/58, respirations 18, and oxygen saturation is 100%. The patient had stated that EGD done and the result showed the following findings, was done by Dr. Cain.. The patient's postop findings showed the following results: The patient has hiatal hernia, gastritis, duodenitis, and superficial ulcers.. REVIEW OF SYSTEMS: GENERAL: The patient is alert and oriented x2, seen in her room, seems comfortable and not complaining of abdominal pain. SKIN: No diaphoresis. HEENT: No headache. No dizziness. NECK: Supple. RESPIRATORY: No dyspnea. CARDIOVASCULAR: No chest pain. GASTROINTESTINAL: No abdominal pain. no vomiting.. EXTREMITIES: Moving extremities. MUSCULOSKELETAL: Feels weak. NEUROLOGIC: Alert and oriented x3. GENITOURINARY: No dysuria. The patient is awaiting medical clearance to go for subacute rehab. MENTAL STATUS EXAMINATION: Elderly female, who appears stated age, pleasant in approach, oriented x3. Mood is much calmer. Affect is reactive. Speech is spontaneous. Thought process is coherent. Thought content, no psychosis. No suicidal or homicidal ideation. Attention and memory seem to be fair. Insight and judgment fair. Impulse control is fair at this time. IMPRESSION: Mood disorder secondary to medical problems, history of fall, chronic obstructive pulmonary disease, history of depression disorder, NOS. PLAN AND RECOMMENDATIONS: The patient is seen. Medications reviewed. Agree to give Zoloft 25 mg p.o. daily for depression. Agree to keep the Ativan 0.5 mg p.o. daily p.r.n. We will also check her TSH and B12 levels. Continue treatment plan as outlined. Joni Walls MD [facility] # [id number] MTDD
[2017-12-01] MEDS: Ipratropium 0.02% Inhal Soln (0.5 mg/2.5 ml) UD IH SCH ×4 (01:26→19:26)
[2017-12-01] MEDS: Levothyroxine 75 MCG TAB PO SCH (06:05)
[2017-12-01] MEDS: Fluticasone-Salmeterol 250-50mcg Diskus INH SCH ×2 (07:25→19:26)
[2017-12-01 07:27] LABS: HEMOGLOBIN 7.3 g/dL (11.0-16.0); LYMPH # 0.6 K/uL (1.0-4.3); LYMPH % 6.5 % (20.0-40.0); MEAN CELL VOLUME 93.3 fL (81.0-99.0); MEAN CORPUSCULAR HEMOGLOBIN 32.4 pg (27.0-31.0); MEAN CORPUSCULAR HGB CONC 34.7 g/dL (33.0-37.0); MEAN PLATELET VOLUME 7.6 fL (7.2-11.7); MONO % 10.5 % (0.0-10.0); NEUT # 7.6 K/uL (1.8-7.0); NRBC % 0.9 % (0.0-2.0); PLATELET COUNT 361 K/uL (130-400); RBC 2.25 Mil/uL (3.80-5.20); RED CELL DISTRIBUTION WIDTH 14.9 % (11.5-14.5); WHITE BLOOD COUNT 9.2 K/uL (4.8-10.8)
[2017-12-01 07:40] LABS: BLOOD UREA NITROGEN 13 mg/dL (7-17); CALCIUM 7.8 mg/dl (8.6-10.4); GFR AFRICAN-AMERICAN > 60; GFR NON-AFRICAN AMERICAN > 60
[2017-12-01] MEDS: Sucralfate 1 gm/10 ml Oral Susp UD PO SCH ×2 (08:31→22:11)
[2017-12-01 09:10] LABS: LYMPHOCYTE 4 % (20-40); MONOCYTE 9 % (0-10); NEUTROPHIL 87 % (50-75); PLATELET ESTIMATE NORMAL (NORMAL); TOTAL CELLS COUNTED 100
[2017-12-01 09:11] LABS: ANISOCYTOSIS SLIGHT; BURR CELLS SLIGHT; HYPOCHROMIC SLIGHT; MICROCYTOSIS SLIGHT; POIKILOCYTOSIS SLIGHT; SCHISTOCYTES SLIGHT; TARGET CELLS SLIGHT
--- NOTE | 2017-12-01 09:32 | CP.PCM.PN ---
Subjective - Date & Time of Evaluation Date of Evaluation: 12/01/17 Time of Evaluation: 09:32 - Subjective Subjective: Pulmonary Follow up, Covering Dr. Greer The patient was Seen and examined by me at the bedside, Events reviewed Patient feeling better today, comfortable, NAD Breathing unlabored, on room air O2 sat 95-100%. Denies any chest pain, SOB or Palpitations Dyspnea on exertion CAT scan of the chest showed no pulmonary embolism. Right breast mass Afebrile Objective - Vital Signs/Intake and Output Vital Signs (last 24 hours): Temp Pulse Resp BP Pulse Ox 98.4 F 77 20 108/65 100 12/01/17 07:00 12/01/17 07:00 12/01/17 07:00 12/01/17 07:00 12/01/17 07:00 Intake and Output: 12/01/17 12/01/17 06:59 18:59 Intake Total 320 Balance 320 - Medications Medications: Current Medications Bisacodyl (Dulcolax) 10 mg PO ONCE ONE Stop: 12/02/17 17:01 Cilostazol (Pletal) 100 mg PO DAILY [facility] Last Admin: 11/30/17 10:00 Dose: Not Given Dicyclomine HCl (Bentyl) 10 mg IM Q8 PRN PRN Reason: Abd pain Last Admin: 11/28/17 08:42 Dose: 10 mg Diltiazem HCl (Cardizem Cd) 120 mg PO HS [facility] Last Admin: 11/30/17 21:21 Dose: 120 mg Diphenoxylate HCl/Atropine (Lomotil 0.025-2.5 Mg Tablet) 1 tab PO Q4 PRN PRN Reason: Diarrhea Last Admin: 11/30/17 11:23 Dose: 1 tab Enoxaparin Sodium (Lovenox) 40 mg SC DAILY [facility] Last Admin: 11/30/17 10:00 Dose: Not Given Gabapentin (Neurontin) 100 mg PO TID [facility] Last Admin: 11/30/17 17:48 Dose: 100 mg Ipratropium [place] (Atrovent) 0.5 mg IH RQ6 [facility] Last Admin: 12/01/17 07:25 Dose: 0.5 mg Levothyroxine Sodium (Synthroid) 75 mcg PO DAILY@0630 [facility] Last Admin: 12/01/17 06:05 Dose: 75 mcg Lorazepam (Ativan) 0.5 mg PO DAILY PRN PRN Reason: Anxiety Last Admin: 11/30/17 14:15 Dose: 0.5 mg Methylprednisolone (Solu-Medrol) 40 mg IVP DAILY [facility] Last Admin: 11/30/17 13:57 Dose: 40 mg Metoclopramide HCl (Reglan) 5 mg PO Q8H [facility] Pantoprazole Sodium (Protonix Inj) 40 mg IVP DAILY [facility] Last Admin: 11/30/17 13:56 Dose: 40 mg Polyethylene Glycol/Electrolytes (Golytely) 4,000 ml PO ONCE ONE Stop: 12/02/17 09:01 Roflumilast (Daliresp) 500 mcg PO DAILY [facility] Last Admin: 11/30/17 11:28 Dose: 500 mcg Fluticasone/Salmeterol (Advair Diskus 250/50) 1 puff INH RQ12 [facility] Last Admin: 12/01/17 07:25 Dose: 1 puff Sertraline HCl (Zoloft) 25 mg PO DAILY [facility] Last Admin: 11/30/17 14:06 Dose: 25 mg Sucralfate (Carafate Oral Susp) 1 gm PO ACBHS [facility] Last Admin: 12/01/17 08:31 Dose: 1 gm - Labs Labs: 12/01/17 07:10 12/01/17 07:10 PT 12.8 SECONDS (9.7-12.2) H 11/24/17 14:57 INR 1.2 11/24/17 14:57 APTT 37 SECONDS (21-34) H 11/24/17 14:57 - Head Exam Head Exam: ATRAUMATIC, NORMAL INSPECTION, NORMOCEPHALIC - Eye Exam Pupil Exam: NORMAL ACCOMODATION - ENT Exam ENT Exam: Mucous Membranes Moist - Neck Exam Neck Exam: Normal Inspection - Respiratory Exam Respiratory Exam: Clear to Ausculation Bilateral, NORMAL BREATHING PATTERN - Cardiovascular Exam Cardiovascular Exam: REGULAR RHYTHM, RRR. absent: JVD - GI/Abdominal Exam GI & Abdominal Exam: Soft - Rectal Exam Rectal Exam: NORMAL INSPECTION - Back Exam Back Exam: absent: CVA tenderness (L), CVA tenderness (R) - Neurological Exam Neurological Exam: Alert, Awake Assessment and Plan (1) COPD exacerbation Status: Acute (2) Anxiety Status: Acute (3) Sinus tachycardia Status: Acute (4) Chest wall contusion Status: Acute - Assessment and Plan (Free Text) Assessment: Continue current management Continue nebulizer treatment with Ipratropium [place] (Atrovent) 0.5 mg IH RQ6 [facility] Taper steroids, Patient currently on Solu-Medrol 40 mg IVP DAILY Continue Advair Diskus (250/50) 1 puff INH RQ12 [facility] PRN Diuretics, No evidence of fluid overload on Exam today
[2017-12-01] MEDS: Enoxaparin 40 mg Syringe SC SCH (10:25)
[2017-12-01] MEDS: Cilostazol 100 mg Tab UD PO SCH (10:25)
[2017-12-01] MEDS: MethylPREDNISolone 40 mg Vial IVP SCH (10:25)
--- NOTE | 2017-12-01 16:32 | CP.PCM.PN ---
Subjective - Date & Time of Evaluation Date of Evaluation: 12/01/17 Time of Evaluation: 19:00 - Subjective Subjective: pt seen and examined Objective - Vital Signs/Intake and Output Vital Signs (last 24 hours): Temp Pulse Resp BP Pulse Ox 98.7 F 81 20 109/65 100 12/01/17 15:13 12/01/17 15:13 12/01/17 15:13 12/01/17 15:13 12/01/17 15:13 Intake and Output: 12/01/17 12/01/17 06:59 18:59 Intake Total 320 600 Balance 320 600 - Medications Medications: Current Medications Bisacodyl (Dulcolax) 10 mg PO ONCE ONE Stop: 12/02/17 17:01 Cilostazol (Pletal) 100 mg PO DAILY [facility] Last Admin: 12/01/17 10:25 Dose: 100 mg Dicyclomine HCl (Bentyl) 10 mg IM Q8 PRN PRN Reason: Abd pain Last Admin: 11/28/17 08:42 Dose: 10 mg Diltiazem HCl (Cardizem Cd) 120 mg PO HS [facility] Last Admin: 11/30/17 21:21 Dose: 120 mg Diphenoxylate HCl/Atropine (Lomotil 0.025-2.5 Mg Tablet) 1 tab PO Q4 PRN PRN Reason: Diarrhea Last Admin: 11/30/17 11:23 Dose: 1 tab Enoxaparin Sodium (Lovenox) 40 mg SC DAILY [facility] Last Admin: 12/01/17 10:25 Dose: 40 mg Gabapentin (Neurontin) 100 mg PO TID [facility] Last Admin: 12/01/17 14:01 Dose: 100 mg Ipratropium [place] (Atrovent) 0.5 mg IH RQ6 [facility] Last Admin: 12/01/17 13:49 Dose: 0.5 mg Levothyroxine Sodium (Synthroid) 75 mcg PO DAILY@0630 [facility] Last Admin: 12/01/17 06:05 Dose: 75 mcg Lorazepam (Ativan) 0.5 mg PO DAILY PRN PRN Reason: Anxiety Last Admin: 12/01/17 12:08 Dose: 0.5 mg Methylprednisolone (Solu-Medrol) 40 mg IVP DAILY [facility] Last Admin: 12/01/17 10:25 Dose: 40 mg Metoclopramide HCl (Reglan) 5 mg PO Q8H [facility] Pantoprazole Sodium (Protonix Inj) 40 mg IVP DAILY [facility] Last Admin: 12/01/17 10:25 Dose: 40 mg Polyethylene Glycol/Electrolytes (Golytely) 4,000 ml PO ONCE ONE Stop: 12/02/17 09:01 Roflumilast (Daliresp) 500 mcg PO DAILY [facility] Last Admin: 12/01/17 10:25 Dose: 500 mcg Fluticasone/Salmeterol (Advair Diskus 250/50) 1 puff INH RQ12 [facility] Last Admin: 12/01/17 07:25 Dose: 1 puff Sertraline HCl (Zoloft) 25 mg PO DAILY [facility] Last Admin: 12/01/17 10:25 Dose: 25 mg Sucralfate (Carafate Oral Susp) 1 gm PO ACBHS [facility] Last Admin: 12/01/17 08:31 Dose: 1 gm - Labs Labs: 12/01/17 07:10 12/01/17 07:10 PT 12.8 SECONDS (9.7-12.2) H 11/24/17 14:57 INR 1.2 11/24/17 14:57 APTT 37 SECONDS (21-34) H 11/24/17 14:57 Assessment and Plan (1) COPD exacerbation Status: Acute (2) Anxiety Status: Acute (3) HTN (hypertension) Status: Acute (4) Depressed Status: Acute
--- NOTE | 2017-12-01 16:37 | PN ---
DATE: 12/01/2017 SUBJECTIVE: The patient is seen. The patient is still feeling anxious at times, feeling weak and has poor appetite. She states that she lost about 10-15 pounds recently. The patient is getting blood infusion as her hemoglobin dropped from 9.2 to 7.3. The patient is undergoing GI workup by Dr. Cain and will be probably going for colonoscopy. VITAL SIGNS: Temperature is 98.2, 92, 118/75, respirations 20, oxygen saturation is 100%. CURRENT PSYCH MEDS: The patient is on Ativan 0.5 mg p.o. daily p.r.n. and also on Zoloft 25 mg daily. REVIEW OF SYSTEMS: CONSTITUTIONAL: The patient is alert, oriented x3, feeling weak, seen in her room, was trying to eat and she states she has poor appetite. SKIN: No diaphoresis. HEENT: No headache. No dizziness. NECK: Supple. RESPIRATORY: No dyspnea. CARDIOVASCULAR: No chest pain. GASTROINTESTINAL: Appetite is poor. No nausea, no vomiting, no bleeding. EXTREMITIES: Gait is unsteady. MUSCULOSKELETAL: Feels weak. NEUROLOGIC: Alert and oriented x3. Denies dysuria. On review of her labs, patient's TSH third generation is markedly elevated, it is 24.8. Her B12 is 665. The patient is currently taking Synthroid 75 mcg p.o. daily. We will discuss with Dr. Patel if her Synthroid dose needs to be readjusted in view of her high third generation TSH value is markedly elevated. MENTAL STATUS EXAMINATION: Elderly female who looks stated age. She is about 100 pounds, 5 feet and height, oriented x3. Mood is depressed and anxious. Affect is reactive. Speech is daze. Thought process coherent. Thought content, the patient wants to be discharged from the hospital, wants to go for subacute rehab. No psychosis, suicidal ideation. Attention and memory seems to be fair. Insight and judgement fair. Impulse control is fair. IMPRESSION: Depressive disorder, not otherwise specified as well as mood disorder secondary to medical problems as well as history of falls, chronic obstructive pulmonary disease, hypertension, anemia. RECOMMENDATIONS The patient is seen, meds reviewed. Continue present management. Continue treatment plan as outlined. The patient is undergoing GI workup. The patient is for subacute rehab once medically cleared. The patient states that she lives alone and she cannot take care of herself alone at this time and needs reconditioning. Joni Walls MD [facility]
[2017-12-01] MEDS ORDERED: Atropine-Diphenoxylate 0.025-2.5 mg Tab PO PRN (17:25)
[2017-12-01] MEDS ORDERED: Atropine-Diphenoxylate 0.025-2.5 mg Tab PO SCH (18:00)
--- NOTE | 2017-12-01 21:23 | PN ---
DATE: 11/30/2017 LOCATION: 665, Bed A. SUBJECTIVE: This is an 82-year-old female post upper endoscopy, seen and examined in rounds without any reported significant changes or active bleeding with gastric biopsy reported negative for Helicobacter pylori infection. The patient denied any actual chest pain, palpitation, significant shortness of breath, chills, or fever, but with mild generalized tenderness and malaise, seen by the psychiatry speech correction consultant as well as the pulmonary staff. The patient indicates that she is mildly improving but with generalized weakness and poor oral intake. Today's lab showed hemoglobin of 7.3, hematocrit 21 with normal platelet count, calcium 7.8, and TSH 3rd generation is 24.8, CA 19- 9 reported to be elevated to 99.3. OBJECTIVE: GENERAL: An 82-year-old female, afebrile with pulse of 100, respiratory rate 20 to 22, blood pressure 116/68. HEENT: Showed pale dry oral mucoid membrane. Nonicteric sclerae. LUNGS: Few scattered crepitation. Decreased air entry at bases. HEART: Positive S1 and S2. ABDOMEN: Soft with mild generalized tenderness. No mass or organomegaly. No rebound tenderness or guarding. RECTAL: The patient refused. EXTREMITIES: Without significant clubbing, cyanosis, or edema. NEUROLOGIC: No reported new neurological deficits, sensory or motor. IMPRESSION: 1. Re-exacerbation of peptic ulcer disease. 2. Anemia, to rule out lower gastrointestinal tract source of blood loss. 3. Duodenitis with superficial ulceration. 4. Moderate-sized hiatus hernia. 5. Increased CA 19-9 with possible pancreatic carcinoma. 6. Multiple past medical history including but not limited to hypothyroidism, hypertension, severe anxiety syndrome with osteoarthritis as well as chronic obstructive pulmonary disease. 7. Mild malnutrition with hypoalbuminemia. SUGGESTIONS: 1. Continue current management. 2. Advance oral intake in the meantime. 3. Patient is for colonoscopy after a slow and adequate preparation. 4. Repeat stool for occult blood. Further recommendation to follow. Sarah Sanders MD
[2017-12-01] MEDS: diltiaZEM 120 mg/24 Hours CD Cap PO SCH (22:11)
[2017-12-02] MEDS: Ipratropium 0.02% Inhal Soln (0.5 mg/2.5 ml) UD IH SCH ×4 (02:37→20:32)
[2017-12-02] MEDS: Albuterol-Ipratrop 3 mg / 0.5 (3 ml) UD INH SCH ×4 (02:37→20:32)
[2017-12-02] MEDS: Levothyroxine 75 MCG TAB PO SCH (06:10)
[2017-12-02 06:55] LABS: BASO % 0.1 % (0.0-2.0); HEMOGLOBIN 10.3 g/dL (11.0-16.0); LYMPH # 0.7 K/uL (1.0-4.3); LYMPH % 5.4 % (20.0-40.0); MEAN CELL VOLUME 89.3 fL (81.0-99.0); MEAN CORPUSCULAR HEMOGLOBIN 30.4 pg (27.0-31.0); MEAN PLATELET VOLUME 7.3 fL (7.2-11.7); MONO # 1.4 K/uL (0.0-0.8); MONO % 10.5 % (0.0-10.0); NEUT # 11.3 K/uL (1.8-7.0); NRBC % 0.3 % (0.0-2.0); PLATELET COUNT 386 K/uL (130-400); RBC 3.39 Mil/uL (3.80-5.20); RED CELL DISTRIBUTION WIDTH 18.5 % (11.5-14.5); WHITE BLOOD COUNT 13.5 K/uL (4.8-10.8)
[2017-12-02 07:05] LABS: BLOOD UREA NITROGEN 14 mg/dL (7-17); CALCIUM 8.4 mg/dl (8.6-10.4); GFR AFRICAN-AMERICAN > 60; GFR NON-AFRICAN AMERICAN 60
[2017-12-02] MEDS: Fluticasone-Salmeterol 250-50mcg Diskus INH SCH ×2 (07:58→20:32)
[2017-12-02] MEDS: Sucralfate 1 gm/10 ml Oral Susp UD PO SCH ×2 (08:00→21:54)
[2017-12-02] MEDS: Cilostazol 100 mg Tab UD PO SCH (08:00)
[2017-12-02] MEDS ORDERED: Peg-Electrolyte Oral Soln 4L (Golytely) PO ONE (09:00)
[2017-12-02 09:29] LABS: BANDS 1 % (0-2); LYMPHOCYTE 5 % (20-40); METAMYELOCYTE 1 % (0-0); MONOCYTE 11 % (0-10); NEUTROPHIL 82 % (50-75); PLATELET ESTIMATE NORMAL (NORMAL); TOTAL CELLS COUNTED 100
[2017-12-02 09:31] LABS: GIANT PLATELETS PRESENT
[2017-12-02 09:32] LABS: HYPERSEGMENTATION PRESENT; LARGE PLATELETS PRESENT; TOXIC GRANULATION PRESENT
[2017-12-02 09:33] LABS: BURR CELLS SLIGHT; HYPOCHROMIC SLIGHT; POIKILOCYTOSIS SLIGHT; POLYCHROMIC SLIGHT
[2017-12-02 09:34] LABS: ANISOCYTOSIS MODERATE; OVALOCYTES SLIGHT
[2017-12-02 09:36] LABS: SCHISTOCYTES SLIGHT
[2017-12-02] MEDS: MethylPREDNISolone 40 mg Vial IVP SCH (09:52)
[2017-12-02] MEDS: Pantoprazole 40 mg EC Tab PO SCH (09:52)
--- NOTE | 2017-12-02 10:19 | PN ---
DATE: 12/02/2017 LOCATION: 665, bed A. SUBJECTIVE: This is an 82 years old female, seen and examined in rounds without significant clinical changes or reported active bleeding, but with complaint of generalized weakness and malaise. No chest pain or palpitations or significant shortness of breath. No reported chills or fever. Most recent lab results done today post blood transfusion showed white blood cells , hemoglobin 10.3, hematocrit 30.2 with normal platelet count, potassium 3.4, 33, indicative of respiratory alkalosis, calcium 8.4. PHYSICAL EXAMINATION: GENERAL: An 82 years old female. VITAL SIGNS: Afebrile with pulse of 92, respiratory rate of 20 to 22, blood pressure 112/64. HEENT: Showed pale, dry oral mucous membrane. Nonicteric sclerae. LUNGS: Few scattered crepitation. Decreased air entry at bases. HEART: Positive S1 and S2. ABDOMEN: Soft. Bowel sounds are present. No masses or organomegaly. No rebound tenderness or guarding. EXTREMITIES: With mild lower extremity edematous changes. No clubbing or cyanosis. NEUROLOGIC: No reported new neurological deficits, sensory or motor. IMPRESSION: 1. Reexacerbation of peptic ulcer disease, by recent upper endoscopy. 2. Anemia, to rule out lower gastrointestinal tract blood loss. 3. Rule out occult gastrointestinal malignancy. 4. Duodenitis with superficial ulceration by recent endoscopy. 5. Multiple past medical history including but not limited to severe anxiety syndrome, osteoarthritis, hypertension with hypothyroidism as well as chronic obstructive pulmonary disease. 6. Malnutrition with hypoalbuminemia. SUGGESTIONS: 1. Continue current management. 2. The patient for colonoscopy at a.m. after a slow and soft preparation. 3. Further recommendation to follow. Sarah Sanders MD
[2017-12-02] MEDS ORDERED: Vitamin A/D oint 60G TP PRN (12:08)
[2017-12-02] MEDS ORDERED: Potassium Chloride 20 mEq ER Tab PO ONE (12:15)
--- NOTE | 2017-12-02 13:02 | CP.PCM.PN ---
Subjective - Date & Time of Evaluation Date of Evaluation: 12/02/17 Time of Evaluation: 12:59 - Subjective Subjective: Pulmonary Follow up, Covering Dr. Greer The patient was Seen and examined by me at the bedside, Events reviewed HR better controlled, on Telemetry, Albuterol was discontinued Currently on Ipratropium [place] (Atrovent) 0.5 mg IH RQ6 [facility] Improved Respiratory status, Patient currently on Solu-Medrol 40 mg IVP DAILY and Advair Diskus (250/50) 1 puff INH RQ12 Awake, comfortable, NAD Breathing unlabored, on 3L NC O2 sat 95%. Pt AAO x3. Alert, No evidence of fluid overload on Exam Denies any chest pain, SOB or Palpitations Afebrile, NSR on the monitor Objective - Vital Signs/Intake and Output Vital Signs (last 24 hours): Temp Pulse Resp BP Pulse Ox 98.1 F 105 H 20 130/68 100 12/02/17 07:00 12/02/17 08:00 12/02/17 07:00 12/02/17 07:00 12/02/17 07:00 - Medications Medications: Current Medications Albuterol/Ipratropium (Duoneb 3 Mg/0.5 Mg (3 Ml) Ud) 3 ml INH RQ6 [facility] Last Admin: 12/02/17 07:58 Dose: 3 ml Bisacodyl (Dulcolax) 10 mg PO ONCE ONE Stop: 12/02/17 17:01 Cilostazol (Pletal) 100 mg PO DAILY [facility] Last Admin: 12/02/17 08:00 Dose: 100 mg Dicyclomine HCl (Bentyl) 10 mg IM Q8 PRN PRN Reason: Abd pain Last Admin: 11/28/17 08:42 Dose: 10 mg Diltiazem HCl (Cardizem Cd) 120 mg PO HS [facility] Last Admin: 12/01/17 22:11 Dose: 120 mg Diphenoxylate HCl/Atropine (Lomotil 0.025-2.5 Mg Tablet) 1 tab PO Q6H PRN PRN Reason: Diarrhea Enoxaparin Sodium (Lovenox) 40 mg SC DAILY [facility] Last Admin: 12/01/17 10:25 Dose: 40 mg Gabapentin (Neurontin) 100 mg PO TID [facility] Last Admin: 12/02/17 09:52 Dose: 100 mg Ipratropium [place] (Atrovent) 0.5 mg IH RQ6 [facility] Last Admin: 12/02/17 07:58 Dose: Not Given Levothyroxine Sodium (Synthroid) 75 mcg PO DAILY@0630 [facility] Last Admin: 12/02/17 06:10 Dose: 75 mcg Lorazepam (Ativan) 0.5 mg PO DAILY PRN PRN Reason: Anxiety Last Admin: 12/01/17 12:08 Dose: 0.5 mg Methylprednisolone (Solu-Medrol) 40 mg IVP DAILY [facility] Last Admin: 12/02/17 09:52 Dose: 40 mg Metoclopramide HCl (Reglan) 5 mg PO Q8H [facility] Last Admin: 12/02/17 09:00 Dose: 5 mg Pantoprazole Sodium (Protonix Ec Tab) 40 mg PO DAILY [facility] Last Admin: 12/02/17 09:52 Dose: 40 mg Roflumilast (Daliresp) 500 mcg PO DAILY [facility] Last Admin: 12/02/17 09:53 Dose: 500 mcg Fluticasone/Salmeterol (Advair Diskus 250/50) 1 puff INH RQ12 [facility] Last Admin: 12/02/17 07:58 Dose: 1 puff Sertraline HCl (Zoloft) 25 mg PO DAILY [facility] Last Admin: 12/02/17 09:52 Dose: 25 mg Sucralfate (Carafate Oral Susp) 1 gm PO ACBHS [facility] Last Admin: 12/02/17 08:00 Dose: 1 gm Vitamin A (Vitamin A&D) 1 applic TP Q8 PRN PRN Reason: Dry mouth - Labs Labs: 12/02/17 06:33 12/02/17 06:33 PT 12.8 SECONDS (9.7-12.2) H 11/24/17 14:57 INR 1.2 11/24/17 14:57 APTT 37 SECONDS (21-34) H 11/24/17 14:57 - Head Exam Head Exam: ATRAUMATIC, NORMAL INSPECTION - Eye Exam Eye Exam: EOMI, Normal appearance Pupil Exam: NORMAL ACCOMODATION - ENT Exam ENT Exam: Normal Exam - Neck Exam Neck Exam: Normal Inspection - Respiratory Exam Respiratory Exam: Clear to Ausculation Bilateral, NORMAL BREATHING PATTERN. absent: Accessory Muscle Use, Chest Wall Tenderness, Rales, Rhonchi, Wheezes - Cardiovascular Exam Cardiovascular Exam: REGULAR RHYTHM, RRR, +S1, +S2. absent: JVD - GI/Abdominal Exam GI & Abdominal Exam: Soft, Normal Bowel Sounds Assessment and Plan (1) COPD exacerbation Status: Acute (2) Anxiety Status: Acute (3) Sinus tachycardia Status: Acute (4) Chest wall contusion Status: Acute - Assessment and Plan (Free Text) Assessment: Continue current management Continue nebulizer treatment with Ipratropium [place] (Atrovent) 0.5 mg IH RQ6 [facility] Taper steroids, Patient currently on Solu-Medrol 40 mg IVP DAILY Continue Advair Diskus (250/50) 1 puff INH RQ12 [facility] PRN Diuretics, No evidence of fluid overload on Exam today
[2017-12-02] MEDS: Vitamins A & D Oint UD Foilpak EXT PRN (14:41)
[2017-12-02] MEDS ORDERED: Magnesium Citrate Oral SOL (300 ml) PO ONE ×2 (15:00→18:00)
[2017-12-02] MEDS ORDERED: Bisacodyl 5mg EC Tab PO ONE ×2 (17:00→20:00)
[2017-12-02] MEDS: diltiaZEM 120 mg/24 Hours CD Cap PO SCH (21:54)
--- NOTE | 2017-12-03 00:24 | CP.PCM.PN ---
Subjective - Date & Time of Evaluation Date of Evaluation: 12/02/17 Time of Evaluation: 18:00 - Subjective Subjective: Patient SEEN AND EXAMINED AT BEDSIDE Objective - Vital Signs/Intake and Output Vital Signs (last 24 hours): Temp Pulse Resp BP Pulse Ox 98.1 F 104 H 20 100/75 100 12/02/17 16:00 12/02/17 16:00 12/02/17 16:00 12/02/17 16:00 12/02/17 16:00 Intake and Output: 12/02/17 12/03/17 18:59 06:59 Intake Total 720 200 Output Total 5 Balance 720 195 - Medications Medications: Current Medications Albuterol/Ipratropium (Duoneb 3 Mg/0.5 Mg (3 Ml) Ud) 3 ml INH RQ6 [facility] Last Admin: 12/02/17 20:32 Dose: Not Given Cilostazol (Pletal) 100 mg PO DAILY [facility] Last Admin: 12/02/17 08:00 Dose: 100 mg Dicyclomine HCl (Bentyl) 10 mg IM Q8 PRN PRN Reason: Abd pain Last Admin: 11/28/17 08:42 Dose: 10 mg Diltiazem HCl (Cardizem Cd) 120 mg PO HS [facility] Last Admin: 12/02/17 21:54 Dose: 120 mg Diphenoxylate HCl/Atropine (Lomotil 0.025-2.5 Mg Tablet) 1 tab PO Q6H PRN PRN Reason: Diarrhea Enoxaparin Sodium (Lovenox) 40 mg SC DAILY [facility] Last Admin: 12/01/17 10:25 Dose: 40 mg Gabapentin (Neurontin) 100 mg PO TID [facility] Last Admin: 12/02/17 18:05 Dose: 100 mg Ipratropium [place] (Atrovent) 0.5 mg IH RQ6 [facility] Last Admin: 12/02/17 20:32 Dose: Not Given Levothyroxine Sodium (Synthroid) 75 mcg PO DAILY@0630 [facility] Last Admin: 12/02/17 06:10 Dose: 75 mcg Lorazepam (Ativan) 0.5 mg PO DAILY PRN PRN Reason: Anxiety Last Admin: 12/01/17 12:08 Dose: 0.5 mg Methylprednisolone (Solu-Medrol) 40 mg IVP DAILY [facility] Last Admin: 12/02/17 09:52 Dose: 40 mg Metoclopramide HCl (Reglan) 5 mg PO Q8H [facility] Last Admin: 12/02/17 23:40 Dose: 5 mg Pantoprazole Sodium (Protonix Ec Tab) 40 mg PO DAILY [facility] Last Admin: 12/02/17 09:52 Dose: 40 mg Roflumilast (Daliresp) 500 mcg PO DAILY [facility] Last Admin: 12/02/17 09:53 Dose: 500 mcg Fluticasone/Salmeterol (Advair Diskus 250/50) 1 puff INH RQ12 [facility] Last Admin: 12/02/17 20:32 Dose: Not Given Sertraline HCl (Zoloft) 25 mg PO DAILY [facility] Last Admin: 12/02/17 09:52 Dose: 25 mg Sucralfate (Carafate Oral Susp) 1 gm PO ACBHS [facility] Last Admin: 12/02/17 21:54 Dose: 1 gm Vitamin A (Vitamin A & D Oint Ud Foilpak) 1 ea EXT Q8 PRN PRN Reason: Dry SKIN Last Admin: 12/02/17 14:41 Dose: 1 ea - Labs Labs: 12/02/17 06:33 12/02/17 06:33 PT 12.8 SECONDS (9.7-12.2) H 11/24/17 14:57 INR 1.2 11/24/17 14:57 APTT 37 SECONDS (21-34) H 11/24/17 14:57 Assessment and Plan (1) COPD exacerbation Status: Acute (2) Anxiety Status: Acute (3) HTN (hypertension) Status: Acute (4) Depressed Status: Acute
[2017-12-03] MEDS: Albuterol-Ipratrop 3 mg / 0.5 (3 ml) UD INH SCH ×5 (01:20→19:21)
[2017-12-03] MEDS: Ipratropium 0.02% Inhal Soln (0.5 mg/2.5 ml) UD IH SCH ×3 (01:20→13:53)
[2017-12-03] MEDS: Levothyroxine 75 MCG TAB PO SCH (06:30)
[2017-12-03] MEDS: Fluticasone-Salmeterol 250-50mcg Diskus INH SCH ×2 (07:24→19:03)
[2017-12-03] MEDS: Sucralfate 1 gm/10 ml Oral Susp UD PO SCH ×2 (07:30→21:48)
[2017-12-03] MEDS ORDERED: Etomidate 20 mg/10ml Inj IV ONE (08:53)
[2017-12-03] MEDS ORDERED: Glucagon Recombinant 1 mg Inj ONE (09:07)
--- NOTE | 2017-12-03 10:28 | CON ---
DATE: 11/28/2017from Dr. Sarah Sanders to Dr. Lex Patel. I was called for GI consultation by the admitting medical team. The patient is seen and fully examined on 11/28/2017 in the presence of the staff in the floor, a short handwriting consultation sheet left in the chart. The entire chart is reviewed including but not limited to the most recent lab and radiology study results, current and the previous medication list, current and the previous medical events, allergy to medication list as well as all the available current and the previous medical records. Case discussed with the staff as well as all the specification consultant on the case. HISTORY OF PRESENT ILLNESS: This is an 82-year-old female who was admitted to the hospital through the emergency room with left-sided chest pain initially first of all with recurrent episodes of mild nausea and dyspepsia with episodes of dizziness for the last few days prior to her admission, but denied any actual palpitations, significant shortness of breath, despite she had been on nasal cannula at home for oxygen support. No reported active GI bleeding, chills, or fever. No reported cough. PAST MEDICAL HISTORY: Including but not limited to, 1. COPD. 2. Hypertension. 3. Hypothyroidism. 4. Osteoarthritis especially in both knees bilaterally. 5. Severe anxiety syndrome. 6. Coronary artery disease. FAMILY HISTORY: Unknown. SOCIAL HISTORY: No recent history of cigarette smoking or alcohol intake. CURRENT MEDICATIONS: Medication lists were reviewed. ALLERGIES TO MEDICATIONS: UNKNOWN. LABORATORY DATA: Most recent lab results showed drop of hemoglobin to 9.2, hematocrit 26.3 with normal white blood cells and normal platelet count with BUN of 37, creatinine of 0.9. Blood glucose level 106 with calcium 8.5. The patient also experienced some episodes of diarrhea recently for which C. difficile antigen and toxins reported to be positive antigen. PHYSICAL EXAMINATION: GENERAL: An 82-year-old female, awake, alert, oriented with a complaint of mild generalized weakness and malaise as well as crampy abdominal pain. VITAL SIGNS: Afebrile with pulse of 84, respiratory rate 22 to 22, blood pressure 124/66. HEENT: Showed pale dry oral mucoid membrane. Nonicteric sclerae. LUNGS: Few scattered crepitation. Decreased air entry at bases. HEART: Positive S1 and S2. ABDOMEN: Soft. Bowel sounds are present with mild generalized tenderness. No mass or organomegaly. No rebound tenderness or guarding. RECTAL: The patient refused. EXTREMITIES: With mild lower extremity edematous changes and tenderness over both knees. No clubbing or cyanosis. NEUROLOGIC: No reported new neurological deficits, sensory or motor. No reported new focal deficits. Peripheral pulses are present bilaterally but mildly weak. IMPRESSION: 1. Anemia. To rule out gastrointestinal blood loss upper versus lower versus occult gastrointestinal malignancy. However, her anemia could be secondary to chronic disease. 2 Multiple past medical history as mentioned above including severe osteoarthritis and anxiety syndrome. 3. Malnutrition with hypoalbuminemia. 4. Dehydration. 5. Recent history of mild change of bowel movement habit, stool positive for C. difficile antigen indicative of early stage of pseudomembranous colitis. SUGGESTIONS: 1. Agree with your plan. 2. Continue current management including also vancomycin p.o. 3. Carafate liquid 10 mL p.o. three times a day. 4. Serum lipase, amylase level. 5. Guaiac all the stool daily x3. 6. Cancer markers. 7. Sectional abdominal and pelvic CAT scan. 8. Endoscopic evaluation of the GI tract once the patient is more stable clinically. Thank you for letting me participate in your patient's case management. Sarah Sanders MD
[2017-12-03] MEDS: Pantoprazole 40 mg EC Tab PO SCH (13:41)
[2017-12-03] MEDS: Cilostazol 100 mg Tab UD PO SCH (13:41)
[2017-12-03] MEDS: MethylPREDNISolone 40 mg Vial IVP SCH (13:43)
--- NOTE | 2017-12-03 21:39 | CP.PCM.PN ---
Objective - Vital Signs/Intake and Output Vital Signs (last 24 hours): Temp Pulse Resp BP Pulse Ox 98.4 F 79 18 110/66 100 12/03/17 15:58 12/03/17 15:58 12/03/17 15:58 12/03/17 15:58 12/03/17 15:58 Intake and Output: 12/03/1718 18:59 06:59 Intake Total 675 Balance 675 - Medications Medications: Current Medications Albuterol/Ipratropium (Duoneb 3 Mg/0.5 Mg (3 Ml) Ud) 3 ml INH RQ6 [facility] Last Admin: 12/03/17 19:21 Dose: 3 ml Cilostazol (Pletal) 100 mg PO DAILY [facility] Last Admin: 12/03/17 13:41 Dose: 100 mg Dicyclomine HCl (Bentyl) 10 mg IM Q8 PRN PRN Reason: Abd pain Last Admin: 12/03/17 02:34 Dose: 10 mg Diltiazem HCl (Cardizem Cd) 120 mg PO HS [facility] Last Admin: 12/02/17 21:54 Dose: 120 mg Diphenoxylate HCl/Atropine (Lomotil 0.025-2.5 Mg Tablet) 1 tab PO Q6H PRN PRN Reason: Diarrhea Enoxaparin Sodium (Lovenox) 40 mg SC DAILY [facility] Last Admin: 12/01/17 10:25 Dose: 40 mg Gabapentin (Neurontin) 100 mg PO TID [facility] Last Admin: 12/03/17 18:22 Dose: 100 mg Ipratropium [place] (Atrovent) 0.5 mg IH RQ6 [facility] Last Admin: 12/03/17 13:53 Dose: Not Given Levothyroxine Sodium (Synthroid) 75 mcg PO DAILY@0630 [facility] Last Admin: 12/03/17 06:30 Dose: Not Given Lorazepam (Ativan) 0.5 mg PO DAILY PRN PRN Reason: Anxiety Last Admin: 12/03/17 14:41 Dose: 0.5 mg Methylprednisolone (Solu-Medrol) 40 mg IVP DAILY [facility] Last Admin: 12/03/17 13:43 Dose: 40 mg Metoclopramide HCl (Reglan) 5 mg PO Q8H [facility] Last Admin: 12/03/17 17:00 Dose: 5 mg Pantoprazole Sodium (Protonix Ec Tab) 40 mg PO DAILY [facility] Last Admin: 12/03/17 13:41 Dose: 40 mg Roflumilast (Daliresp) 500 mcg PO DAILY [facility] Last Admin: 12/03/17 13:41 Dose: 500 mcg Fluticasone/Salmeterol (Advair Diskus 250/50) 1 puff INH RQ12 [facility] Last Admin: 12/03/17 19:03 Dose: 1 puff Sertraline HCl (Zoloft) 25 mg PO DAILY [facility] Last Admin: 12/03/17 14:05 Dose: 25 mg Sucralfate (Carafate Oral Susp) 1 gm PO ACBHS [facility] Last Admin: 12/03/17 07:30 Dose: Not Given Vitamin A (Vitamin A & D Oint Ud Foilpak) 1 ea EXT Q8 PRN PRN Reason: Dry SKIN Last Admin: 12/02/17 14:41 Dose: 1 ea - Labs Labs: 12/02/17 06:33 12/02/17 06:33 PT 12.8 SECONDS (9.7-12.2) H 11/24/17 14:57 INR 1.2 11/24/17 14:57 APTT 37 SECONDS (21-34) H 11/24/17 14:57 Assessment and Plan (1) COPD exacerbation Status: Acute (2) Chest wall contusion Status: Acute
[2017-12-03] MEDS: diltiaZEM 120 mg/24 Hours CD Cap PO SCH (21:48)
[2017-12-04] MEDS: Albuterol-Ipratrop 3 mg / 0.5 (3 ml) UD INH SCH ×4 (02:20→20:06)
[2017-12-04] MEDS: Ipratropium 0.02% Inhal Soln (0.5 mg/2.5 ml) UD IH SCH ×3 (02:20→13:20)
[2017-12-04] MEDS: Levothyroxine 75 MCG TAB PO SCH (06:52)
[2017-12-04] MEDS: Fluticasone-Salmeterol 250-50mcg Diskus INH SCH ×2 (08:27→20:06)
--- NOTE | 2017-12-04 09:08 | CP.PCM.PN ---
Subjective - Date & Time of Evaluation Date of Evaluation: 12/03/17 Time of Evaluation: 14:00 - Subjective Subjective: The patient was Seen and examined by me at the bedside at 12/03/17, Events reviewed Patient feeling better today, comfortable, NAD Denies any chest pain, SOB or Palpitations Dyspnea on exertion CAT scan of the chest showed no pulmonary embolism. Right breast mass Afebrile Objective - Vital Signs/Intake and Output Vital Signs (last 24 hours): Temp Pulse Resp BP Pulse Ox 98.5 F 60 20 117/71 99 12/04/17 08:13 12/04/17 08:13 12/04/17 08:13 12/04/17 08:13 12/04/17 08:13 - Medications Medications: Current Medications Albuterol/Ipratropium (Duoneb 3 Mg/0.5 Mg (3 Ml) Ud) 3 ml INH RQ6 [facility] Last Admin: 12/04/17 07:48 Dose: 3 ml Cilostazol (Pletal) 100 mg PO DAILY [facility] Last Admin: 12/03/17 13:41 Dose: 100 mg Dicyclomine HCl (Bentyl) 10 mg IM Q8 PRN PRN Reason: Abd pain Last Admin: 12/03/17 02:34 Dose: 10 mg Diltiazem HCl (Cardizem Cd) 120 mg PO HS [facility] Last Admin: 12/03/17 21:48 Dose: 120 mg Diphenoxylate HCl/Atropine (Lomotil 0.025-2.5 Mg Tablet) 1 tab PO Q6H PRN PRN Reason: Diarrhea Enoxaparin Sodium (Lovenox) 40 mg SC DAILY [facility] Last Admin: 12/01/17 10:25 Dose: 40 mg Gabapentin (Neurontin) 100 mg PO TID [facility] Last Admin: 12/03/17 18:22 Dose: 100 mg Ipratropium [place] (Atrovent) 0.5 mg IH RQ6 [facility] Last Admin: 12/04/17 08:28 Dose: Not Given Levothyroxine Sodium (Synthroid) 75 mcg PO DAILY@0630 [facility] Last Admin: 12/04/17 06:52 Dose: 75 mcg Lorazepam (Ativan) 0.5 mg PO DAILY PRN PRN Reason: Anxiety Last Admin: 12/03/17 14:41 Dose: 0.5 mg Methylprednisolone (Solu-Medrol) 40 mg IVP DAILY [facility] Last Admin: 12/03/17 13:43 Dose: 40 mg Metoclopramide HCl (Reglan) 5 mg PO Q8H [facility] Last Admin: 12/04/17 06:55 Dose: 5 mg Pantoprazole Sodium (Protonix Ec Tab) 40 mg PO DAILY [facility] Last Admin: 12/03/17 13:41 Dose: 40 mg Roflumilast (Daliresp) 500 mcg PO DAILY [facility] Last Admin: 12/03/17 13:41 Dose: 500 mcg Fluticasone/Salmeterol (Advair Diskus 250/50) 1 puff INH RQ12 [facility] Last Admin: 12/04/17 08:27 Dose: 1 puff Sertraline HCl (Zoloft) 25 mg PO DAILY [facility] Last Admin: 12/03/17 14:05 Dose: 25 mg Sucralfate (Carafate Oral Susp) 1 gm PO ACBHS [facility] Last Admin: 12/03/17 21:48 Dose: 1 gm Vitamin A (Vitamin A & D Oint Ud Foilpak) 1 ea EXT Q8 PRN PRN Reason: Dry SKIN Last Admin: 12/02/17 14:41 Dose: 1 ea - Labs Labs: 12/02/17 06:33 12/02/17 06:33 PT 12.8 SECONDS (9.7-12.2) H 11/24/17 14:57 INR 1.2 11/24/17 14:57 APTT 37 SECONDS (21-34) H 11/24/17 14:57 - Constitutional Appears: Well - Head Exam Head Exam: ATRAUMATIC, NORMAL INSPECTION, NORMOCEPHALIC - Eye Exam Eye Exam: EOMI Pupil Exam: NORMAL ACCOMODATION - ENT Exam ENT Exam: Mucous Membranes Moist - Neck Exam Neck Exam: Full ROM - Respiratory Exam Respiratory Exam: NORMAL BREATHING PATTERN - Cardiovascular Exam Cardiovascular Exam: +S1, +S2 - GI/Abdominal Exam GI & Abdominal Exam: Soft, Normal Bowel Sounds - Neurological Exam Neurological Exam: Alert, Awake Assessment and Plan (1) Anxiety Status: Acute (2) COPD exacerbation Status: Acute (3) Chest pain Status: Acute (4) Chest wall contusion Status: Acute (5) Depressed Status: Acute (6) Dyspnea Status: Acute (7) Sinus tachycardia Status: Acute (8) Anxiety Status: Acute (9) COPD (chronic obstructive pulmonary disease) Status: Acute (10) COPD exacerbation Status: Acute (11) Chr obstructive pulmonary disease w/ acute lower respiratory infxn Status: Acute (12) Colitis Status: Acute (13) Diarrhea Status: Acute (14) Diastolic dysfunction Status: Acute (15) Gastroenteritis Status: Acute (16) HTN (hypertension) Status: Acute (17) PAD (peripheral artery disease) Status: Acute - Assessment and Plan (Free Text) Assessment: no Dyspnea on exertion CAT scan of the chest showed no pulmonary embolism. Right breast mass Afebrile Plan: Continue current management Continue nebulizer treatment with Ipratropium [place] (Atrovent) 0.5 mg IH RQ6 [facility] Taper steroids, Patient currently on Solu-Medrol 40 mg IVP DAILY Continue Advair Diskus (250/50) 1 puff INH RQ12 [facility] PRN Diuretics, No evidence of fluid overload on Exam today
[2017-12-04] MEDS: Sucralfate 1 gm/10 ml Oral Susp UD PO SCH ×2 (10:52→21:34)
[2017-12-04] MEDS: MethylPREDNISolone 40 mg Vial IVP SCH (10:58)
[2017-12-04] MEDS: Cilostazol 100 mg Tab UD PO SCH (10:59)
[2017-12-04] MEDS: Pantoprazole 40 mg EC Tab PO SCH (11:00)
[2017-12-04] MEDS: Potassium Chloride 20 mEq ER Tab PO SCH (14:36)
[2017-12-04] MEDS ORDERED: Magnesium Citrate Oral SOL (300 ml) PO ONE (17:00)
--- NOTE | 2017-12-04 18:13 | PN ---
DATE: 12/04/2017 SUBJECTIVE: The patient is seen. The patient is still undergoing GI workup. The patient will be going for barium enema today. She had a colonoscopy and also EGD done. Review of her labs, the patient's hemoglobin is now 10.3/30.2. The patient's occult blood is positive. The patient is still not medically cleared to go for subacute rehab. She wanted to go home, but the patient is too frail and no one to care of her at home. The patient is still willing to go for subacute rehab at [facility]. VITAL SIGNS: Temperature is 98.5, 114, 117/71, respirations 20, oxygen saturation is 99%. REVIEW OF SYSTEMS: CONSTITUTIONAL: The patient is alert, verbal, seen in her room, still feeling weak. SKIN: No diaphoresis. HEENT: No headache. No dizziness. NECK: Supple. RESPIRATORY: No dyspnea. CARDIOVASCULAR: No chest pain. GASTROINTESTINAL: The patient complained of abdominal pain. No nausea or vomiting. The patient's appetite is still poor. EXTREMITIES: Gait is unsteady. MUSCULOSKELETAL: Denies weakness. NEUROLOGIC: Alert, oriented x3. GENITOURINARY: No urinary problem. MENTAL STATUS EXAMINATION: The patient is an elderly female who looks stated age, about 5 feet and weighs 98 pounds, looks frail and weak. Mood is dysphoric. Affect is reactive. Speech is spontaneous. Thought process coherent. Thought content, the patient wants to go home, but the patient realized that she is frail and no one can take care of her at home. The patient is willing to go for subacute rehab once medically cleared GI [facility]. No psychosis. No suicidal ideation. Attention and memory seem to be fair. Insight and judgment fair. Impulse control is fair. 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 History of anemia as well as history of fall, history of chronic obstructive pulmonary disease. History of colitis. RECOMMENDATION: The patient is seen, meds reviewed for now. The patient is still undergoing GI workup. The patient may continue the Ativan 0.5 mg p.o. b.i.d. The patient used to take Klonopin before 1 mg at bedtime discontinued as the patient fell. The patient also may continue Zoloft 25 mg p.o. daily for depression. Continue treatment plan as outlined. Joni Walls MD [facility] # [id number]
--- NOTE | 2017-12-04 19:05 | PN ---
DATE: 12/04/2017 LOCATION: 5, bed 8. SUBJECTIVE: This is an 82-year-old female, post upper and lower endoscopy was scheduled for barium enema today due to severe spastic colon and some external compression raising the question of possible abnormalities of the colon. Appears to be awake, alert, oriented. Appears to be somewhat very anxious post albuterol treatment. The entire chart is reviewed including but not limited to the most recent lab and radiology study results, current and previous medication list, current and previous medical events and today's lab results still pending. The patient tolerated oral intake. Denied any chest pain, palpitation, or significant shortness of breath. PHYSICAL EXAMINATION: GENERAL: An 82-year-old female, awake, alert. VITAL SIGNS: Afebrile with pulse of 78, respiratory 20 to 22, blood pressure 124/74. HEENT: Showed pale dry oral mucous membrane. Nonicteric sclerae. LUNGS: Few scattered crepitation. Decreased air entry at bases. HEART: Positive S1 and S2. ABDOMEN: Soft with mild generalized tenderness. No mass or organomegaly. No rebound tenderness or guarding. IMPRESSION: 1. Anemia to rule out lower gastrointestinal tract source of blood loss. 2. Peptic ulcer disease. 3. Known history of chronic obstructive pulmonary disease. 4. Hypertension with peripheral artery disease by history. 5. Severe anxiety syndrome with depression by history. 6. Known history of hypothyroidism with osteoarthritis. SUGGESTIONS: 1. Continue current management. 2. Follow up on barium enema result. 3. Further recommendations to follow. Sarah Sanders MD
[2017-12-04] MEDS ORDERED: guaiFENesin 200 mg/10 ml Syrup UD PO PRN (19:20)
[2017-12-04] MEDS: Vitamins A & D Oint UD Foilpak EXT PRN (21:34)
[2017-12-04] MEDS: diltiaZEM 120 mg/24 Hours CD Cap PO SCH (21:34)
--- NOTE | 2017-12-05 00:23 | CP.PCM.PN ---
Subjective - Date & Time of Evaluation Date of Evaluation: 12/04/17 Time of Evaluation: 18:00 - Subjective Subjective: Pt seen and evaluated at bedside Objective - Vital Signs/Intake and Output Vital Signs (last 24 hours): Temp Pulse Resp BP Pulse Ox 98.1 F 101 H 18 119/73 100 12/04/17 16:00 12/04/17 21:38 12/04/17 16:00 12/04/17 21:38 12/04/17 16:00 Intake and Output: 12/04/17 12/05/17 18:59 06:59 Intake Total 30 Balance 30 - Medications Medications: Current Medications Albuterol/Ipratropium (Duoneb 3 Mg/0.5 Mg (3 Ml) Ud) 3 ml INH RQ6 [facility] Last Admin: 12/04/17 20:06 Dose: 3 ml Cilostazol (Pletal) 100 mg PO DAILY [facility] Last Admin: 12/04/17 10:59 Dose: 100 mg Dicyclomine HCl (Bentyl) 10 mg IM Q8 PRN PRN Reason: Abd pain Last Admin: 12/03/17 02:34 Dose: 10 mg Diltiazem HCl (Cardizem Cd) 120 mg PO HS [facility] Last Admin: 12/04/17 21:34 Dose: 120 mg Diphenoxylate HCl/Atropine (Lomotil 0.025-2.5 Mg Tablet) 1 tab PO Q6H PRN PRN Reason: Diarrhea Enoxaparin Sodium (Lovenox) 40 mg SC DAILY [facility] Last Admin: 12/01/17 10:25 Dose: 40 mg Gabapentin (Neurontin) 100 mg PO TID [facility] Last Admin: 12/04/17 17:51 Dose: 100 mg Guaifenesin (Robitussin) 200 mg PO Q4H PRN PRN Reason: Cough and congestion Last Admin: 12/04/17 19:38 Dose: 200 mg Ipratropium [place] (Atrovent) 0.5 mg IH RQ6 [facility] Last Admin: 12/04/17 13:20 Dose: Not Given Levothyroxine Sodium (Synthroid) 75 mcg PO DAILY@0630 [facility] Last Admin: 12/04/17 06:52 Dose: 75 mcg Lorazepam (Ativan) 0.5 mg PO DAILY PRN PRN Reason: Anxiety Last Admin: 06/17/18 14:41 Dose: 0.5 mg Methylprednisolone (Solu-Medrol) 40 mg IVP DAILY [facility] Last Admin: 12/04/17 10:58 Dose: 40 mg Metoclopramide HCl (Reglan) 5 mg PO Q8H [facility] Last Admin: 12/04/17 17:57 Dose: 5 mg Pantoprazole Sodium (Protonix Ec Tab) 40 mg PO DAILY [facility] Last Admin: 12/04/17 11:00 Dose: 40 mg Potassium Chloride (K-Dur 20 Meq Er Tab) 20 meq PO DAILY [facility] Stop: 12/05/17 13:16 Last Admin: 12/04/17 14:36 Dose: 20 meq Roflumilast (Daliresp) 500 mcg PO DAILY [facility] Last Admin: 12/04/17 10:59 Dose: 500 mcg Fluticasone/Salmeterol (Advair Diskus 250/50) 1 puff INH RQ12 [facility] Last Admin: 12/04/17 20:06 Dose: 1 puff Sertraline HCl (Zoloft) 25 mg PO DAILY [facility] Last Admin: 12/04/17 11:01 Dose: 25 mg Sodium Phosphate (Fleet Enema) 135 ml [place] ONCE ONE Stop: 12/05/17 08:01 Sucralfate (Carafate Oral Susp) 1 gm PO ACBHS [facility] Last Admin: 12/04/17 21:34 Dose: 1 gm Vitamin A (Vitamin A & D Oint Ud Foilpak) 1 ea EXT Q8 PRN PRN Reason: Dry SKIN Last Admin: 12/04/17 21:34 Dose: 1 ea - Labs Labs: 12/02/17 06:33 12/02/17 06:33 PT 12.8 SECONDS (9.7-12.2) H 11/24/17 14:57 INR 1.2 11/24/17 14:57 APTT 37 SECONDS (21-34) H 11/24/17 14:57 Assessment and Plan (1) COPD exacerbation Status: Acute (2) Anxiety Status: Acute (3) HTN (hypertension) Status: Acute (4) Depressed Status: Acute
[2017-12-05] MEDS: Ipratropium 0.02% Inhal Soln (0.5 mg/2.5 ml) UD IH SCH ×4 (01:32→19:49)
[2017-12-05] MEDS: Albuterol-Ipratrop 3 mg / 0.5 (3 ml) UD INH SCH ×4 (01:34→19:49)
[2017-12-05] MEDS: Levothyroxine 75 MCG TAB PO SCH (06:34)
[2017-12-05] MEDS: Sucralfate 1 gm/10 ml Oral Susp UD PO SCH (06:34)
[2017-12-05] MEDS: Fluticasone-Salmeterol 250-50mcg Diskus INH SCH ×2 (07:57→19:49)
[2017-12-05 08:11] LABS: LYMPH # 0.6 K/uL (1.0-4.3); MEAN CORPUSCULAR HEMOGLOBIN 31.2 pg (27.0-31.0); MEAN CORPUSCULAR HGB CONC 34.3 g/dL (33.0-37.0); MEAN PLATELET VOLUME 7.3 fL (7.2-11.7); MONO # 1.4 K/uL (0.0-0.8); MONO % 9.7 % (0.0-10.0); NEUT % 86.3 % (50.0-75.0); PLATELET COUNT 432 K/uL (130-400); RBC 3.22 Mil/uL (3.80-5.20); WHITE BLOOD COUNT 13.9 K/uL (4.8-10.8)
[2017-12-05 08:28] LABS: ALB/GLOB RATIO 1.3 (1.0-2.1); ALT/SGPT 43 U/L (9-52); AST/SGOT 25 U/L (14-36); BLOOD UREA NITROGEN 16 mg/dL (7-17); CALCIUM 8.8 mg/dl (8.6-10.4); GFR AFRICAN-AMERICAN > 60; GFR NON-AFRICAN AMERICAN > 60
[2017-12-05 08:53] LABS: BANDS 1 % (0-2); LYMPHOCYTE 3 % (20-40); MONOCYTE 8 % (0-10); MYELOCYTE 1 % (0-0); NEUTROPHIL 87 % (50-75); PLATELET ESTIMATE NORMAL (NORMAL); TOTAL CELLS COUNTED 100
[2017-12-05 08:54] LABS: ANISOCYTOSIS SLIGHT; BURR CELLS SLIGHT; GIANT PLATELETS PRESENT; HYPOCHROMIC SLIGHT; LARGE PLATELETS PRESENT; POIKILOCYTOSIS SLIGHT
[2017-12-05] MEDS: Potassium Chloride 20 mEq ER Tab PO SCH ×2 (11:22→11:25)
[2017-12-05] MEDS: Pantoprazole 40 mg EC Tab PO SCH (11:23)
[2017-12-05] MEDS: Cilostazol 100 mg Tab UD PO SCH (11:23)
[2017-12-05] MEDS: MethylPREDNISolone 40 mg Vial IVP SCH (11:23)
--- NOTE | 2017-12-05 13:56 | PN ---
DATE: 12/05/2017 LOCATION: 665, bed A. SUBJECTIVE: This is an 82-year-old female, seen and examined early in rounds without reported active bleeding or significant complaint of chest pain or palpitations. No chills or fever. The patient was scheduled for Barium enema today, awaiting result. Today's lab showed white blood cells 13.9, hemoglobin 10, hematocrit 29.3 with thrombocytosis of 432, potassium 3.1, albumin 3, and the stool for occult blood reported to be positive. PHYSICAL EXAMINATION: GENERAL: An 82-year-old female, awake, alert, oriented. VITAL SIGNS: Afebrile with pulse of 92, respiratory rate 20 to 22, blood pressure 128/74. HEENT: Showed pale, dry oral mucous membrane. Nonicteric sclerae. LUNGS: Few scattered crepitation. Decreased air entry at bases. HEART: Positive S1 and S2. ABDOMEN: Soft with mild generalized tenderness. No mass or organomegaly. No rebound tenderness or guarding. EXTREMITIES: Without significant edema, clubbing or cyanosis. IMPRESSION: 1. Anemia. 2. Peptic ulcer disease. 3. To rule out lower gastrointestinal tract lesions. 4. Severe spastic colon, by recent history. 5. Known history of chronic obstructive pulmonary disease, anxiety syndrome, hypertension. 6. Electrolyte imbalance with hypokalemia. SUGGESTIONS: 1. Continue current management. 2. Further recommendation to follow barium enema results. 3. of the chest CAT scan. Pulmonary workup to be kept in mind. We will follow up closely with you. Sarah Sanders MD
--- NOTE | 2017-12-05 16:14 | CP.PCM.PN ---
Subjective - Date & Time of Evaluation Date of Evaluation: 12/05/17 Time of Evaluation: 10:50 - Subjective Subjective: patient seen and examined Patient is lying comfortably complaining of dyspnea on minimal exertion Being treated for COPD Afebrile No chest pain Alert oriented Objective - Vital Signs/Intake and Output Vital Signs (last 24 hours): Temp Pulse Resp BP Pulse Ox 98.4 F 114 H 20 123/71 96 12/05/17 07:50 12/05/17 12:07 12/05/17 07:50 12/05/17 07:50 12/05/17 07:50 Intake and Output: 12/05/17 12/05/17 06:59 18:59 Intake Total 200 Output Total 300 Balance -100 - Medications Medications: Current Medications Albuterol/Ipratropium (Duoneb 3 Mg/0.5 Mg (3 Ml) Ud) 3 ml INH RQ6 [facility] Last Admin: 12/05/17 13:52 Dose: 3 ml Dicyclomine HCl (Bentyl) 10 mg IM Q8 PRN PRN Reason: Abd pain Last Admin: 12/03/17 02:34 Dose: 10 mg Diltiazem HCl (Cardizem Cd) 120 mg PO HS [facility] Last Admin: 12/04/17 21:34 Dose: 120 mg Diphenoxylate HCl/Atropine (Lomotil 0.025-2.5 Mg Tablet) 1 tab PO Q6H PRN PRN Reason: Diarrhea Enoxaparin Sodium (Lovenox) 40 mg SC DAILY [facility] Last Admin: 12/01/17 10:25 Dose: 40 mg Guaifenesin (Robitussin) 200 mg PO Q4H PRN PRN Reason: Cough and congestion Last Admin: 12/04/17 19:38 Dose: 200 mg Ipratropium [place] (Atrovent) 0.5 mg IH RQ6 [facility] Last Admin: 12/05/17 13:52 Dose: Not Given Levothyroxine Sodium (Synthroid) 100 mcg PO 0630 [facility] Lorazepam (Ativan) 0.5 mg PO DAILY PRN PRN Reason: Anxiety Last Admin: 12/03/17 14:41 Dose: 0.5 mg Methylprednisolone (Solu-Medrol) 40 mg IVP DAILY [facility] Last Admin: 12/05/17 11:23 Dose: 40 mg Metoclopramide HCl (Reglan) 5 mg PO Q8H [facility] Last Admin: 12/05/17 08:40 Dose: Not Given Pantoprazole Sodium (Protonix Ec Tab) 40 mg PO DAILY [facility] Last Admin: 12/05/17 11:23 Dose: 40 mg Potassium Chloride (K-Dur 20 Meq Er Tab) 40 meq PO DAILY [facility] Stop: 12/07/17 11:31 Last Admin: 12/05/17 11:25 Dose: 40 meq Potassium Chloride (K-Dur 20 Meq Er Tab) 40 meq PO ONCE ONE Stop: 12/05/17 16:31 Roflumilast (Daliresp) 500 mcg PO DAILY [facility] Last Admin: 12/05/17 11:24 Dose: 500 mcg Fluticasone/Salmeterol (Advair Diskus 250/50) 1 puff INH RQ12 [facility] Last Admin: 12/05/17 07:57 Dose: 1 puff Sertraline HCl (Zoloft) 50 mg PO DAILY [facility] Vitamin A (Vitamin A & D Oint Ud Foilpak) 1 ea EXT Q8 PRN PRN Reason: Dry SKIN Last Admin: 12/04/17 21:34 Dose: 1 ea - Labs Labs: 12/05/17 07:52 12/05/17 07:52 PT 12.8 SECONDS (9.7-12.2) H 11/24/17 14:57 INR 1.2 11/24/17 14:57 APTT 37 SECONDS (21-34) H 11/24/17 14:57 - Head Exam Head Exam: ATRAUMATIC, NORMOCEPHALIC - ENT Exam ENT Exam: Mucous Membranes Moist - Neck Exam Neck Exam: Normal Inspection - Respiratory Exam Respiratory Exam: Decreased Breath Sounds - Cardiovascular Exam Cardiovascular Exam: REGULAR RHYTHM - GI/Abdominal Exam GI & Abdominal Exam: Normal Bowel Sounds Assessment and Plan (1) COPD exacerbation Assessment & Plan: continue nebulizer treatment Continue inhaled steroid Status: Acute (2) Chest wall contusion Status: Acute
--- NOTE | 2017-12-05 16:19 | PN ---
DATE: 12/05/2017 SUBJECTIVE: The patient is seen. The patient is unable to do barium enema, complaining her rectum hurts so bad. The patient is still feeling weak and the patient was asking when she will be going for subacute rehab. OBJECTIVE: VITAL SIGNS: Temperature 98.4, 97, 123/71, respirations 20, and oxygen saturations 96%. REVIEW OF SYSTEMS: CONSTITUTIONAL: The patient is alert, oriented x3, but feeling weak, seen in her room, unable to tolerate barium enema. SKIN: No diaphoresis. HEENT: No headache. No dizziness. NECK: Supple. RESPIRATORY: No dyspnea. CARDIOVASCULAR: No chest pain. GASTROINTESTINAL: Complaining of rectal pain. MUSCULOSKELETAL: Feels weak. NEUROLOGIC: Alert and oriented x3. GENITOURINARY: No urinary problems. MENTAL STATUS EXAMINATION: Elderly female, looks frail, oriented x3. Mood is calm. Affect is reactive. Speech is spontaneous. Thought process coherent. Thought content, the patient unable to tolerate barium enema, complaining of rectal pain. No psychosis. No suicidal ideation. Attention and memory seemed to be fair. Insight and judgement fair. Impulse control is fair. IMPRESSION: History of mood disorder secondary to medical problems as well as depressive disorder, not otherwise specified. PLAN AND RECOMMENDATIONS: The patient is seen, meds reviewed. Continue present management. Continue present psych meds. The patient awaiting medical clearance to go for subacute rehab possibly to [facility]. Joni Walls MD
[2017-12-05] MEDS ORDERED: Potassium Chloride 20 mEq ER Tab PO ONE (16:30)
[2017-12-05] MEDS: diltiaZEM 120 mg/24 Hours CD Cap PO SCH (21:57)
[2017-12-06] MEDS: Ipratropium 0.02% Inhal Soln (0.5 mg/2.5 ml) UD IH SCH ×3 (01:32→19:52)
[2017-12-06] MEDS: Albuterol-Ipratrop 3 mg / 0.5 (3 ml) UD INH SCH ×3 (01:34→13:54)
[2017-12-06] MEDS: Levothyroxine 100 MCG TAB PO SCH (06:32)
[2017-12-06 07:38] LABS: BASO % 0.1 % (0.0-2.0); EOS % 0.3 % (0.0-4.0); HEMOGLOBIN 9.9 g/dL (11.0-16.0); LYMPH # 0.4 K/uL (1.0-4.3); LYMPH % 2.7 % (20.0-40.0); MEAN CELL VOLUME 91.5 fL (81.0-99.0); MEAN CORPUSCULAR HEMOGLOBIN 30.8 pg (27.0-31.0); MEAN CORPUSCULAR HGB CONC 33.6 g/dL (33.0-37.0); MEAN PLATELET VOLUME 7.1 fL (7.2-11.7); MONO # 1.3 K/uL (0.0-0.8); MONO % 9.2 % (0.0-10.0); NEUT # 12.6 K/uL (1.8-7.0); NEUT % 87.7 % (50.0-75.0); PLATELET COUNT 415 K/uL (130-400); RBC 3.21 Mil/uL (3.80-5.20); RED CELL DISTRIBUTION WIDTH 17.8 % (11.5-14.5); WHITE BLOOD COUNT 14.3 K/uL (4.8-10.8)
--- NOTE | 2017-12-06 07:50 | CP.PCM.PN ---
Subjective - Date & Time of Evaluation Date of Evaluation: 12/05/17 Time of Evaluation: 18:00 - Subjective Subjective: Pt seen and examined by me Objective - Vital Signs/Intake and Output Vital Signs (last 24 hours): Temp Pulse Resp BP Pulse Ox 98.1 F 121 H 20 139/80 100 12/05/17 23:15 12/06/17 01:00 12/05/17 23:15 12/05/17 23:15 12/05/17 23:15 Intake and Output: 12/06/17 12/06/17 06:59 18:59 Intake Total 360 Balance 360 - Medications Medications: Current Medications Albuterol/Ipratropium (Duoneb 3 Mg/0.5 Mg (3 Ml) Ud) 3 ml INH RQ6 [facility] Last Admin: 12/06/17 01:34 Dose: 3 ml Dicyclomine HCl (Bentyl) 10 mg IM Q8 PRN PRN Reason: Abd pain Last Admin: 12/03/17 02:34 Dose: 10 mg Diltiazem HCl (Cardizem Cd) 120 mg PO HS [facility] Last Admin: 12/05/17 21:57 Dose: 120 mg Diphenoxylate HCl/Atropine (Lomotil 0.025-2.5 Mg Tablet) 1 tab PO Q6H PRN PRN Reason: Diarrhea Enoxaparin Sodium (Lovenox) 40 mg SC DAILY [facility] Last Admin: 12/01/17 10:25 Dose: 40 mg Guaifenesin (Robitussin) 200 mg PO Q4H PRN PRN Reason: Cough and congestion Last Admin: 12/04/17 19:38 Dose: 200 mg Ipratropium [place] (Atrovent) 0.5 mg IH RQ6 [facility] Last Admin: 12/06/17 01:32 Dose: Not Given Levothyroxine Sodium (Synthroid) 100 mcg PO 0630 [facility] Last Admin: 12/06/17 06:32 Dose: 100 mcg Lorazepam (Ativan) 0.5 mg PO BID [facility] Methylprednisolone (Solu-Medrol) 40 mg IVP DAILY [facility] Last Admin: 12/05/17 11:23 Dose: 40 mg Metoclopramide HCl (Reglan) 5 mg PO Q8H [facility] Last Admin: 12/06/17 00:16 Dose: 5 mg Pantoprazole Sodium (Protonix Ec Tab) 40 mg PO DAILY [facility] Last Admin: 12/05/17 11:23 Dose: 40 mg Potassium Chloride (K-Dur 20 Meq Er Tab) 40 meq PO DAILY [facility] Stop: 12/07/17 11:31 Last Admin: 12/05/17 11:25 Dose: 40 meq Roflumilast (Daliresp) 500 mcg PO DAILY [facility] Last Admin: 12/05/17 11:24 Dose: 500 mcg Fluticasone/Salmeterol (Advair Diskus 250/50) 1 puff INH RQ12 [facility] Last Admin: 12/05/17 19:49 Dose: 1 puff Sertraline HCl (Zoloft) 50 mg PO DAILY [facility] Vitamin A (Vitamin A & D Oint Ud Foilpak) 1 ea EXT Q8 PRN PRN Reason: Dry SKIN Last Admin: 12/04/17 21:34 Dose: 1 ea - Labs Labs: 12/06/17 07:23 12/05/17 07:52 PT 12.8 SECONDS (9.7-12.2) H 11/24/17 14:57 INR 1.2 11/24/17 14:57 APTT 37 SECONDS (21-34) H 11/24/17 14:57 Assessment and Plan (1) COPD exacerbation Status: Acute (2) Anxiety Status: Acute (3) HTN (hypertension) Status: Acute (4) Depressed Status: Acute
[2017-12-06] MEDS: Fluticasone-Salmeterol 250-50mcg Diskus INH SCH ×2 (07:55→19:51)
[2017-12-06 08:16] LABS: BLOOD UREA NITROGEN 16 mg/dL (7-17); CALCIUM 8.9 mg/dl (8.6-10.4); GFR AFRICAN-AMERICAN > 60; GFR NON-AFRICAN AMERICAN > 60
[2017-12-06 08:44] LABS: ANISOCYTOSIS SLIGHT; EOSINOPHIL 1 % (0-4); LYMPHOCYTE 2 % (20-40); MONOCYTE 8 % (0-10); MYELOCYTE 3 % (0-0); NEUTROPHIL 86 % (50-75); PLATELET ESTIMATE NORMAL (NORMAL); POIKILOCYTOSIS SLIGHT; TOTAL CELLS COUNTED 100
[2017-12-06 08:45] LABS: BURR CELLS SLIGHT; HYPOCHROMIC SLIGHT
[2017-12-06] MEDS: Potassium Chloride 20 mEq ER Tab PO SCH (09:02)
[2017-12-06] MEDS: Pantoprazole 40 mg EC Tab PO SCH (09:03)
[2017-12-06] MEDS: MethylPREDNISolone 40 mg Vial IVP SCH (09:03)
[2017-12-06] MEDS ORDERED: Potassium Chloride 20 mEq ER Tab PO ONE (16:00)
--- NOTE | 2017-12-06 16:33 | PN ---
DATE: 12/06/2017 LOCATION: 665, bed A. SUBJECTIVE: This is an 82-year-old female seen and examined in rounds without significant clinical changes or reported active bleeding, refused barium enema to be done yesterday. The patient is somewhat tolerating oral intake, but not adequate and no reported chest pain, palpitation or significant shortness of breath. No reported chills or fever. The entire chart is reviewed including but not limited to most recent lab and radiology study results, current and the previous medication list, current and the previous medical records. Most recent lab results done today showed leukocytosis of 14.3, hemoglobin 9.9, hematocrit 29.4 with thrombocytosis of 415 with total protein is still low as well as albumin. Stool for occult blood previously was reported to be positive. PHYSICAL EXAMINATION: GENERAL: An 82-year-old female, awake, alert and oriented. VITAL SIGNS: Afebrile with pulse of 98, respiratory rate 20 to 22, blood pressure 110/66. HEENT: Showed pale, dry oral mucous membrane. Nonicteric sclerae. LUNGS: Few scattered crepitation. Decreased air entry at bases. HEART: Positive S1 and S2. ABDOMEN: Soft. Bowel sounds are present. No mass or organomegaly. No rebound tenderness or guarding. RECTAL EXAMINATION: The patient refused. EXTREMITIES: Without significant clubbing, cyanosis or edema. NEUROLOGICAL: No reported new neurological deficits, sensory or motor. IMPRESSION: 1. Peptic ulcer disease. 2. Anemia. 3. Known history of chronic obstructive pulmonary disease, depression with severe anxiety syndrome. 4. Known history of hypertension. 5. Evidence of severely spastic colon with internal hemorrhoids and mild colitis, by recent history. 6. Malnutrition with hypoalbuminemia. SUGGESTIONS: 1. Agree with your plan. 2. Antireflux measures. 3. Abdominal and pelvic CAT scan. 4. Further recommendation to follow. Sarah Sanders MD
--- NOTE | 2017-12-06 21:00 | PN ---
DATE: 12/06/2017 SUBJECTIVE: The patient is seen. The patient is feeling weak, depressed. She is not sleep well and not eating. The patient started Ativan 0.5 mg b.i.d. and also Zoloft 50 mg daily. Zoloft can cause loss of appetite and also being an SSRI can also increase the risk of the patient's bleeding as it inhibits platelet aggregation. We will try to change the patient to Remeron. Remeron is not an SSRI and also it might improve the patient's appetite and sleep. PHYSICAL EXAMINATION: VITAL SIGNS: Temperature 98, pulse 102, blood pressure 105/69, respirations 18, and oxygen saturations 99%. GENERAL: The patient is still weak, but looking forward to be transferred to [facility] for subacute rehab. REVIEW OF SYSTEMS: CONSTITUTIONAL: The patient is alert, oriented x3, feeling weak, seen in her room. She states she has trouble sleeping and not eating well. SKIN: No diaphoresis. HEENT: No headache or dizziness. NECK: Supple. RESPIRATORY: No dyspnea. CARDIOVASCULAR: No chest pain. GASTROINTESTINAL: Her appetite is poor. No abdominal pain. EXTREMITIES: Gait steady. MUSCULOSKELETAL: Feels weak. NEUROLOGIC: Alert and oriented x3. The patient also states that she does not want to undergo barium enema because she was having rectal pain from the preparation from going to the bathroom so many times. MENTAL STATUS EXAMINATION: Frail elderly female, looks stated age, oriented x3. Mood is slightly depressed, dysphoric, somatic. Affect is reactive. Speech is spontaneous. Thought process coherent. Thought content, the patient is looking forward to go for subacute rehab at [facility], but awaiting medical clearance. No psychosis. No suicidal or homicidal ideation. The patient states that she has poor appetite and not sleeping well. Attention and memory seemed to be fair. Insight and judgement fair. Impulse control is fair. 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 History of anemia as well as history of fall, chronic obstructive pulmonary disease, hypertension, colitis. PLAN AND RECOMMENDATION: The patient is seen, meds reviewed. We will discontinue the Zoloft that is ordered. We will continue the Ativan 0.5 mg b.i.d. and then start with Remeron 7.5 mg at bedtime to improve the patient's appetite and sleep. The patient is wiling to go for subacute rehab at [facility] after medically cleared. Joni Walls MD
[2017-12-06] MEDS: diltiaZEM 120 mg/24 Hours CD Cap PO SCH (21:13)
--- NOTE | 2017-12-06 23:50 | CP.PCM.PN ---
Subjective - Date & Time of Evaluation Date of Evaluation: 12/06/17 Time of Evaluation: 20:00 - Subjective Subjective: Pt seen and examined at bedside Objective - Vital Signs/Intake and Output Vital Signs (last 24 hours): Temp Pulse Resp BP Pulse Ox 97.6 F 117 H 20 126/81 100 12/06/17 15:51 12/06/17 15:51 12/06/17 15:51 12/06/17 15:51 12/06/17 15:51 Intake and Output: 12/06/17 12/07/17 18:59 06:59 Intake Total 200 Balance 200 - Medications Medications: Current Medications Dicyclomine HCl (Bentyl) 10 mg IM Q8 PRN PRN Reason: Abd pain Last Admin: 12/03/17 02:34 Dose: 10 mg Diltiazem HCl (Cardizem Cd) 120 mg PO HS [facility] Last Admin: 12/06/17 21:13 Dose: 120 mg Diphenoxylate HCl/Atropine (Lomotil 0.025-2.5 Mg Tablet) 1 tab PO Q6H PRN PRN Reason: Diarrhea Enoxaparin Sodium (Lovenox) 40 mg SC DAILY [facility] Last Admin: 12/01/17 10:25 Dose: 40 mg Guaifenesin (Robitussin) 200 mg PO Q4H PRN PRN Reason: Cough and congestion Last Admin: 12/04/17 19:38 Dose: 200 mg Ipratropium [place] (Atrovent) 0.5 mg IH RQ6 [facility] Last Admin: 12/06/17 19:52 Dose: 0.5 mg Levothyroxine Sodium (Synthroid) 100 mcg PO 0630 [facility] Last Admin: 12/06/17 06:32 Dose: 100 mcg Lorazepam (Ativan) 0.5 mg PO BID [facility] Last Admin: 12/06/17 17:10 Dose: 0.5 mg Methylprednisolone (Solu-Medrol) 40 mg IVP DAILY [facility] Last Admin: 12/06/17 09:03 Dose: 40 mg Metoclopramide HCl (Reglan) 5 mg PO Q8H [facility] Last Admin: 12/06/17 17:10 Dose: 5 mg Mirtazapine (Remeron) 7.5 mg PO HS [facility] Last Admin: 12/06/17 21:13 Dose: 7.5 mg Pantoprazole Sodium (Protonix Ec Tab) 40 mg PO DAILY [facility] Last Admin: 12/06/17 09:03 Dose: 40 mg Potassium Chloride (K-Dur 20 Meq Er Tab) 40 meq PO DAILY [facility] Stop: 12/07/17 11:31 Last Admin: 12/06/17 09:02 Dose: 40 meq Roflumilast (Daliresp) 500 mcg PO DAILY [facility] Last Admin: 12/06/17 09:03 Dose: 500 mcg Fluticasone/Salmeterol (Advair Diskus 250/50) 1 puff INH RQ12 [facility] Last Admin: 12/06/17 19:51 Dose: Not Given Vitamin A (Vitamin A & D Oint Ud Foilpak) 1 ea EXT Q8 PRN PRN Reason: Dry SKIN Last Admin: 12/04/17 21:34 Dose: 1 ea - Labs Labs: 12/06/17 07:23 12/06/17 07:23 PT 12.8 SECONDS (9.7-12.2) H 11/24/17 14:57 INR 1.2 11/24/17 14:57 APTT 37 SECONDS (21-34) H 11/24/17 14:57 Assessment and Plan (1) COPD exacerbation Status: Acute (2) Anxiety Status: Acute (3) HTN (hypertension) Status: Acute (4) Depressed Status: Acute
[2017-12-07] MEDS: Ipratropium 0.02% Inhal Soln (0.5 mg/2.5 ml) UD IH SCH ×4 (02:51→21:13)
[2017-12-07] MEDS: Levothyroxine 100 MCG TAB PO SCH (06:49)
[2017-12-07] MEDS: Fluticasone-Salmeterol 250-50mcg Diskus INH SCH ×2 (08:24→21:12)
[2017-12-07] MEDS: Pantoprazole 40 mg EC Tab PO SCH (10:33)
[2017-12-07] MEDS: MethylPREDNISolone 40 mg Vial IVP SCH (10:33)
[2017-12-07] MEDS: Potassium Chloride 20 mEq ER Tab PO SCH (10:34)
--- NOTE | 2017-12-07 13:25 | PN ---
DATE: 12/07/2017 LOCATION: 665, bed A. SUBJECTIVE: This is an 82-year-old female, seen and examined early in rounds today without reported significant clinical changes or evidence of active bleeding. I was informed that the patient somewhat refused barium enema and had been reevaluated by the psychiatric healthcare management consultant on the case due to her depressive disorder with possible mood disorder secondary to medical problem. The entire chart is reviewed including but not limited to the most recent lab and radiology study results, current and the previous medication list, current and the previous medical events, and the patient denied any actual chest pain, palpitation, significant shortness of breath. The most recent lab result yesterday showed leukocytosis with low hemoglobin and hematocrit with thrombocytosis of 415 with low albumin and low total protein. PHYSICAL EXAMINATION: GENERAL: An 82-year-old female. VITAL SIGNS: Afebrile with pulse of 100, respiratory rate 20 to 22, blood pressure 128/72. HEENT: Showed pale, dry oral mucous membrane. Nonicteric sclerae. LUNGS: A few scattered crepitations. Decreased air entry at bases. HEART: Positive S1 and S2. ABDOMEN: Soft. Bowel sounds are present with slight distention and mild generalized tenderness. No mass or organomegaly. No rebound tenderness or guarding. EXTREMITIES: With evidence of muscle wasting syndrome and slight lower extremity edematous changes. No clubbing or cyanosis. NEUROLOGICAL: No reported new neurological deficits, sensory or motor. IMPRESSION: 1. Peptic ulcer disease. 2. Evidence of severe spastic colon with internal hemorrhoids and mild colitis. 3. Anemia. 4. Known history of depression. 5. Known history of hypertension. 6. History of chronic obstructive pulmonary disease. 7. Malnutrition with hypoalbuminemia. 8. Severe anxiety syndrome, by history. SUGGESTIONS: 1. Continue current management. 2. The patient may need peripheral hyperalimentation. 3. Sectional abdominal and pelvic CAT scan to be ordered. Sarah Sanders MD
[2017-12-07] MEDS: diltiaZEM 120 mg/24 Hours CD Cap PO SCH (22:10)
[2017-12-08] MEDS: Ipratropium 0.02% Inhal Soln (0.5 mg/2.5 ml) UD IH SCH ×2 (01:27→07:54)
[2017-12-08 02:33] VITALS: RESP 20
[2017-12-08] MEDS: Levothyroxine 100 MCG TAB PO SCH (06:57)
[2017-12-08] MEDS: Fluticasone-Salmeterol 250-50mcg Diskus INH SCH (07:55)
[2017-12-08 08:42] VITALS: PULSE 75; TEMP 98.3; O2SAT 98
[2017-12-08 08:44] VITALS: BP 120/82
--- NOTE | 2017-12-08 10:43 | CP.PCM.PN ---
Subjective - Date & Time of Evaluation Date of Evaluation: 12/07/17 Time of Evaluation: 20:00 - Subjective Subjective: Patient seen & evaluated Objective - Vital Signs/Intake and Output Vital Signs (last 24 hours): Temp Pulse Resp BP Pulse Ox 98.3 F 75 20 120/82 98 12/08/17 08:42 12/08/17 08:42 12/08/17 08:42 12/08/17 08:42 12/08/17 08:42 - Medications Medications: Current Medications Dicyclomine HCl (Bentyl) 10 mg IM Q8 PRN PRN Reason: Abd pain Last Admin: 12/03/17 02:34 Dose: 10 mg Diltiazem HCl (Cardizem Cd) 120 mg PO HS [facility] Last Admin: 12/07/17 22:10 Dose: 120 mg Diphenoxylate HCl/Atropine (Lomotil 0.025-2.5 Mg Tablet) 1 tab PO Q6H PRN PRN Reason: Diarrhea Enoxaparin Sodium (Lovenox) 40 mg SC DAILY [facility] Last Admin: 12/01/17 10:25 Dose: 40 mg Guaifenesin (Robitussin) 200 mg PO Q4H PRN PRN Reason: Cough and congestion Last Admin: 12/04/17 19:38 Dose: 200 mg Ipratropium [place] (Atrovent) 0.5 mg IH RQ6 [facility] Last Admin: 12/08/17 07:54 Dose: 0.5 mg Levothyroxine Sodium (Synthroid) 100 mcg PO 0630 [facility] Last Admin: 12/08/17 06:57 Dose: 100 mcg Lorazepam (Ativan) 0.5 mg PO BID [facility] Last Admin: 12/07/17 18:25 Dose: 0.5 mg Metoclopramide HCl (Reglan) 5 mg PO Q8H [facility] Last Admin: 12/08/17 09:01 Dose: 5 mg Mirtazapine (Remeron) 7.5 mg PO HS [facility] Last Admin: 12/07/17 22:43 Dose: 7.5 mg Pantoprazole Sodium (Protonix Ec Tab) 40 mg PO DAILY [facility] Last Admin: 12/07/17 10:33 Dose: 40 mg Prednisone (Prednisone Tab) 20 mg PO DAILY [facility] Roflumilast (Daliresp) 500 mcg PO DAILY [facility] Last Admin: 12/07/17 10:34 Dose: 500 mcg Fluticasone/Salmeterol (Advair Diskus 250/50) 1 puff INH RQ12 [facility] Last Admin: 12/08/17 07:55 Dose: Not Given Vitamin A (Vitamin A & D Oint Ud Foilpak) 1 ea EXT Q8 PRN PRN Reason: Dry SKIN Last Admin: 12/04/17 21:34 Dose: 1 ea - Labs Labs: 12/06/17 07:23 12/06/17 07:23 PT 12.8 SECONDS (9.7-12.2) H 11/24/17 14:57 INR 1.2 11/24/17 14:57 APTT 37 SECONDS (21-34) H 11/24/17 14:57 Assessment and Plan (1) COPD exacerbation Status: Acute (2) Anxiety Status: Acute (3) HTN (hypertension) Status: Acute (4) Depressed Status: Acute
--- NOTE | 2017-12-08 11:34 | CP.PCM.PN ---
Subjective - Date & Time of Evaluation Date of Evaluation: 12/08/17 Time of Evaluation: 11:32 - Subjective Subjective: PT CLEARED FOR D/C TODAY TO [facility] FOR [facility] PER DR. DORSEY. PT HAS AUTHORIZATION FROM INSURANCE COMPANY PER . PT TO BE FOLLOWED BY DR. DORSEY WHILE AT THE FACILITY. TO ARRANGE TRANSPORTATION FOR THIS AFTERNOON. NO FURTHER ORDERS. -PLACE UNDER THE SERVICE OF DR. DORSEY WHILE AT [facility]---CALL DR. DORSEY UPON ARRIVAL TO THE FACILITY FOR ADMITTING ROUNDS. -CONTINUE MEDICATIONS PER THE MED REC FORM---CHANGES CAN BE MADE BY DR. DORSEY. -PHYSICAL THERAPY TOLERATED. -FALL PRECAUTIONS PER FACILITY PROTOCOL. -FOR FURTHER QUESTIONS OR CONCERNS, CONTACT DR. DORSEY. Objective - Vital Signs/Intake and Output Vital Signs (last 24 hours): Temp Pulse Resp BP Pulse Ox 98.3 F 75 20 120/82 98 12/08/17 08:42 12/08/17 08:42 12/08/17 08:42 12/08/17 08:42 12/08/17 08:42 - Medications Medications: Current Medications Dicyclomine HCl (Bentyl) 10 mg IM Q8 PRN PRN Reason: Abd pain Last Admin: 12/03/17 02:34 Dose: 10 mg Diltiazem HCl (Cardizem Cd) 120 mg PO HS [facility] Last Admin: 12/07/17 22:10 Dose: 120 mg Diphenoxylate HCl/Atropine (Lomotil 0.025-2.5 Mg Tablet) 1 tab PO Q6H PRN PRN Reason: Diarrhea Enoxaparin Sodium (Lovenox) 40 mg SC DAILY [facility] Last Admin: 12/01/17 10:25 Dose: 40 mg Guaifenesin (Robitussin) 200 mg PO Q4H PRN PRN Reason: Cough and congestion Last Admin: 12/04/17 19:38 Dose: 200 mg Ipratropium [place] (Atrovent) 0.5 mg IH RQ6 [facility] Last Admin: 12/08/17 07:54 Dose: 0.5 mg Levothyroxine Sodium (Synthroid) 100 mcg PO 0630 [facility] Last Admin: 12/08/17 06:57 Dose: 100 mcg Lorazepam (Ativan) 0.5 mg PO BID [facility] Last Admin: 12/07/17 18:25 Dose: 0.5 mg Metoclopramide HCl (Reglan) 5 mg PO Q8H [facility] Last Admin: 12/08/17 09:01 Dose: 5 mg Mirtazapine (Remeron) 7.5 mg PO HS [facility] Last Admin: 12/07/17 22:43 Dose: 7.5 mg Pantoprazole Sodium (Protonix Ec Tab) 40 mg PO DAILY [facility] Last Admin: 12/07/17 10:33 Dose: 40 mg Prednisone (Prednisone Tab) 20 mg PO DAILY [facility] Roflumilast (Daliresp) 500 mcg PO DAILY [facility] Last Admin: 12/07/17 10:34 Dose: 500 mcg Fluticasone/Salmeterol (Advair Diskus 250/50) 1 puff INH RQ12 [facility] Last Admin: 12/08/17 07:55 Dose: Not Given Vitamin A (Vitamin A & D Oint Ud Foilpak) 1 ea EXT Q8 PRN PRN Reason: Dry SKIN Last Admin: 12/04/17 21:34 Dose: 1 ea - Labs Labs: 12/06/17 07:23 12/06/17 07:23 PT 12.8 SECONDS (9.7-12.2) H 11/24/17 14:57 INR 1.2 11/24/17 14:57 APTT 37 SECONDS (21-34) H 11/24/17 14:57
[2017-12-08] MEDS: Pantoprazole 40 mg EC Tab PO SCH (11:38)
--- NOTE | 2017-12-08 18:07 | CP.PCM.DIS ---
Provider - Provider Date of Admission: 11/25/17 14:28 Attending physician: Lex Patel MD Time Spent in preparation of Discharge (in minutes): 45 Diagnosis - Discharge Diagnosis (1) COPD exacerbation Status: Acute (2) Anxiety Status: Acute (3) HTN (hypertension) Status: Acute (4) Depressed Status: Acute Hospital Course - Lab Results Lab Results: Most Recent Lab Values WBC 14.3 K/uL (4.8-10.8) H 12/06/17 07:23 RBC 3.21 Mil/uL (3.80-5.20) L 12/06/17 07:23 Hgb 9.9 g/dL (11.0-16.0) L 12/06/17 07:23 Hct 29.4 % (34.0-47.0) L 12/06/17 07:23 MCV 91.5 fL (81.0-99.0) 12/06/17 07:23 MCH 30.8 pg (27.0-31.0) 12/06/17 07: MCHC 33.6 g/dL (33.0-37.0) 12/06/17 07:23 RDW 17.8 % (11.5-14.5) H 12/06/17 07:23 Plt Count 415 K/uL (130-400) H 12/06/17 07:23 MPV 7.1 fL (7.2-11.7) L 12/06/17 07:23 Neut % (Auto) 87.7 % (50.0-75.0) H 12/06/17 07:23 Lymph % (Auto) 2.7 % (20.0-40.0) L 12/06/17 07:23 [place] % (Auto) 9.2 % (0.0-10.0) 12/06/17 07:23 Eos % (Auto) 0.3 % (0.0-4.0) 12/06/17 07:23 Baso % (Auto) 0.1 % (0.0-2.0) 12/06/17 07:23 Neut # (Auto) 12.6 K/uL (1.8-7.0) H 12/06/17 07:23 Lymph # (Auto) 0.4 K/uL (1.0-4.3) L 06/20/18 07:23 [place] # (Auto) 1.3 K/uL (0.0-0.8) H 12/06/17 07:23 Eos # (Auto) 0.0 K/uL (0.0-0.7) 12/06/17 07:23 Baso # (Auto) 0.0 K/uL (0.0-0.2) 12/06/17 07:23 Neutrophils % (Manual) 86 % (50-75) H 12/06/17 07:23 Band Neutrophils % 1 % (0-2) 12/05/17 07:52 Lymphocytes % (Manual) 2 % (20-40) L 12/06/17 07:23 Monocytes % (Manual) 8 % (0-10) 12/06/17 07:23 Eosinophils % (Manual) 1 % (0-4) 12/06/17 07:23 Metamyelocytes % 1 % (0-0) H 12/02/17 06:33 Myelocytes % 3 % (0-0) H 12/06/17 07:23 Hypersegmented Polys Present 12/02/17 06:33 Toxic Granulation Present 12/02/17 06:33 Platelet Estimate Normal (NORMAL) 12/06/17 07:23 Large Platelets Present 12/05/17 07:52 Giant Platelets Present 12/05/17 07:52 Polychromasia Slight 12/02/17 06:33 Hypochromasia (manual) Slight 12/06/17 07:23 Poikilocytosis (manual Slight 12/06/17 07:23 Basophilic Stippling Slight 12/02/17 06:33 Anisocytosis (manual) Slight 12/06/17 07:23 Microcytosis (manual) Slight 12/01/17 07:10 Target Cells Slight 12/01/17 07:10 Ovalocytes Slight 12/02/17 06:33 [place] Cells Slight 12/06/17 07:23 Schistocytes Slight 12/02/17 06:33 PT 12.8 SECONDS (9.7-12.2) H 11/24/17 14:57 INR 1.2 11/24/17 14:57 APTT 37 SECONDS (21-34) H 11/24/17 14:57 Sodium 143 mmol/L (132-148) 12/06/17 07:23 Potassium 3.9 mmol/L (3.6-5.2) 12/06/17 07:23 Chloride 108 mmol/L (98-107) H 12/06/17 07:23 Carbon Dioxide 30 mmol/L (22-30) 12/06/17 07:23 Anion Gap 9 (10-20) L 12/06/17 07:23 BUN 16 mg/dL (7-17) 12/06/17 07:23 Creatinine 0.8 mg/dL (0.7-1.2) 12/06/17 07:23 Est GFR ( Amer) > 60 12/06/17 07:23 Est GFR (Non-Af Amer) > 60 12/06/17 07:23 POC Glucose (mg/dL) 81 mg/dL (65-110) 11/30/17 11:44 Random Glucose 88 mg/dL (65-105) 12/06/17 07:23 Calcium 8.9 mg/dl (8.6-10.4) 12/06/17 07:23 Total Bilirubin 0.4 mg/dL (0.2-1.3) 12/05/17 07:52 AST 25 U/L (14-36) 12/05/17 07:52 ALT 43 U/L (9-52) 12/05/17 07:52 Alkaline Phosphatase 64 U/L (38-126) 12/05/17 07:52 Total Creatine Kinase 72 U/L (30-135) 11/25/17 07:25 CK-MB (Mass) 1.08 ng/mL (0.0-3.38) 11/25/17 07:25 Troponin I < 0.0120 ng/mL (0.00-0.120) 11/25/17 07:25 NT-Pro-B Natriuret Pep 128 pg/mL (0-900) 11/24/17 14:57 Total Protein 5.3 g/dL (6.3-8.3) L 12/05/17 07:52 Albumin 3.0 g/dL (3.5-5.0) L 12/05/17 07:52 Globulin 2.3 gm/dL (2.2-3.9) 12/05/17 07:52 Albumin/Globulin Ratio 1.3 (1.0-2.1) 06/19/18 07:52 Carcinoembryonic Ag 2.4 ng/mL (0-3.0) 11/29/17 13:44 CA 19-9 Antigen 99.3 U/mL (0-37) H 11/29/17 13:44 CA 125 Antigen 17.9 U/mL (0-35) 11/29/17 13:44 Vitamin B12 665 pg/mL (239-931) 12/01/17 07:10 TSH 3rd Generation 24.80 mIU/L (0.46-4.68) H 12/01/17 07:10 Stool Occult Blood Positive (NEGATIVE) H 12/02/17 10:00 C. difficile Ag & Toxin Negative (NEGATIVE) 11/29/17 18:52 Blood Type O POSITIVE 12/01/17 11:11 Antibody Screen Negative 12/01/17 11:11 - Hospital Course Hospital Course: PT CLEARED FOR D/C TODAY TO [facility] FOR [facility] . PT HAS AUTHORIZATION FROM INSURANCE COMPANY PER . PT TO BE FOLLOWED BY DR. PATEL WHILE AT THE FACILITY. TO ARRANGE TRANSPORTATION FOR THIS AFTERNOON. NO FURTHER ORDERS. -PLACE UNDER MY SERVICE AT [facility]---CALL DR. PATEL UPON ARRIVAL TO THE [facility] FOR ADMITTING ROUNDS. -CONTINUE MEDICATIONS PER THE MED REC FORM-- -PHYSICAL THERAPY TOLERATED. -FALL PRECAUTIONS PER FACILITY PROTOCOL. -FOR FURTHER QUESTIONS OR CONCERNS, CONTACT DR. PATEL. Discharge Exam - Head Exam Head Exam: ATRAUMATIC, NORMAL INSPECTION, NORMOCEPHALIC Discharge Plan - Follow Up Plan Condition: STABLE Disposition: REHAB FACILITY/REHAB UNIT Instructions: Heart Healthy Diet, Heart Failure, Adult (DC), Chest Pain (DC), Gastritis (DC), Exacerbation of COPD (DC), Upper GI Endoscopy (DC) Additional Instructions: -PLACE UNDER THE SERVICE OF DR. PATEL WHILE AT [facility]---CALL DR. PATEL UPON ARRIVAL TO THE FACILITY FOR ADMITTING ROUNDS. -CONTINUE MEDICATIONS PER THE MED REC FORM---CHANGES CAN BE MADE BY DR. PATEL. -PHYSICAL THERAPY TOLERATED. -FALL PRECAUTIONS PER FACILITY PROTOCOL. -FOR FURTHER QUESTIONS OR CONCERNS, CONTACT DR. PATEL. Referrals: Silas Greer MD [Staff Provider] - Joni Gonzalez MD [Staff Provider] - Sarah Cain [Staff Provider] - Lex Patel MD [Staff Provider] -
--- NOTE | 2017-12-08 21:02 | PN ---
DATE: 12/08/2017 LOCATION: 665, bed A. SUBJECTIVE: This is an 82-year-old female, seen and examined early in rounds without significant clinical change or reported active bleeding, somewhat tolerating oral intake well, more than before. Denies any actual chest pain, palpitations, or significant new clinical changes. Entire chart is reviewed including but not limited to most recent lab and radiology study results. Current and the previous medication list. Current and the previous medical events, and today's lab is still pending. However, the patient reported to have lower hemoglobin and hematocrit with leukocytosis recently but with thrombocytosis with low albumin, low total protein. PHYSICAL EXAMINATION: GENERAL: An 82-year-old female. VITAL SIGNS: Afebrile with pulse of 72, respiratory rate 20 to 22, blood pressure 124/80. HEENT: Showed pale, dry, oral mucoid membrane. Nonicteric sclerae. LUNGS: Decreased crepitation. Decreased air entry at bases. HEART: Positive S1 and S2. ABDOMEN: Soft. Bowel sounds are present. No mass or organomegaly. No rebound tenderness or guarding. EXTREMITIES: No significant clubbing, cyanosis or edema. NEUROLOGIC: No reported new neurological deficits, sensory or motor. No reported new focal deficits. IMPRESSION: 1. Re-exacerbation of peptic ulcer disease. 2. Evidence of severe spastic colon with internal hemorrhoids as well as mild left-sided colitis. 3. Anemia, most likely secondary to above. 4. Known history of but not limited to chronic obstructive pulmonary disease, severe anxiety syndrome, hypertension. 5. Known history of atrial fibrillation. 6. Mild malnutrition, hypobilirubinemia. SUGGESTIONS: 1. Continue current management. 2. Advance diet as tolerated. 3. The patient may be discharged to [facility] if cleared Dr. Patel or followup as outpatient. Sarah Sanders MD
== END 2017-12-08 13:29 | DRG 208 ==
LOC: C.ER 14:33 → C.9E 17:41 → C.6T 18:43 → OBSVTOIN 11-25 14:28
PROVIDERS: ADMIT Internal Medicine; ATTEND Internal Medicine
PROC: 5A1945Z Respiratory Ventilation, 24-96 Consecutive Hours (ICD-10-PCS; 2017-11-24)
PROC: 0DB98ZX Excision of Duodenum, Via Natural or Artificial Opening Endoscopic, Diagnostic (ICD-10-PCS; 2017-11-30)
PROC: 0DJD8ZZ Inspection of Lower Intestinal Tract, Via Natural or Artificial Opening Endoscopic (ICD-10-PCS; principal; 2017-12-03 09:00)
DX: J44.1 Chronic obstructive pulmonary disease with (acute) exacerbation (principal); E44.1 Mild protein-calorie malnutrition; E87.3 Alkalosis; K51.50 Left sided colitis without complications; K27.9 Peptic ulcer, site unspecified, unspecified as acute or chronic, without hemorrhage or perforation; K29.80 Duodenitis without bleeding; I48.91 Unspecified atrial fibrillation; I25.10 Atherosclerotic heart disease of native coronary artery without angina pectoris; D64.9 Anemia, unspecified; E03.9 Hypothyroidism, unspecified; E86.0 Dehydration; E87.6 Hypokalemia; F41.9 Anxiety disorder, unspecified; K44.9 Diaphragmatic hernia without obstruction or gangrene; K58.9 Irritable bowel syndrome, unspecified; Z91.81 History of falling; Z87.891 Personal history of nicotine dependence; Z99.81 Dependence on supplemental oxygen; Z79.51 Long term (current) use of inhaled steroids; N63.10 Unspecified lump in the right breast, unspecified quadrant; K64.8 Other hemorrhoids; K64.4 Residual hemorrhoidal skin tags; F32.9 Major depressive disorder, single episode, unspecified; I11.0 Hypertensive heart disease with heart failure; I50.9 Heart failure, unspecified; I73.9 Peripheral vascular disease, unspecified

== ENCOUNTER 2017-12-15 21:08 | Inpatient (IN) | payer MEDICARE, OTHER ==
[2017-12-15 21:09] VITALS: BMI 18.1
[2017-12-15 21:46] LABS: BASO % 0.2 % (0.0-2.0); HEMOGLOBIN 12.8 g/dL (11.0-16.0); LYMPH # 0.4 K/uL (1.0-4.3); LYMPH % 2.5 % (20.0-40.0); MEAN CELL VOLUME 92.5 fL (81.0-99.0); MEAN CORPUSCULAR HEMOGLOBIN 29.7 pg (27.0-31.0); MEAN CORPUSCULAR HGB CONC 32.1 g/dL (33.0-37.0); MONO # 0.7 K/uL (0.0-0.8); NEUT # 16.4 K/uL (1.8-7.0); NEUT % 93.3 % (50.0-75.0); NRBC % 0.2 % (0.0-2.0); PLATELET COUNT 264 K/uL (130-400); RBC 4.31 Mil/uL (3.80-5.20); RED CELL DISTRIBUTION WIDTH 17.9 % (11.5-14.5); WHITE BLOOD COUNT 17.6 K/uL (4.8-10.8)
[2017-12-15 21:46] LABS: VENOUS BLOOD GAS BASE EXCESS -2.7 mmol/L (0.0-2.0); VENOUS BLOOD GAS PCO2 30 mmHg (40-60); VENOUS BLOOD GAS PO2 20 mm/Hg (30-55); VENOUS BLOOD PH 7.44 (7.32-7.43)
[2017-12-15] MEDS ORDERED: Digoxin 500 mcg/2ml (0.5 mg/2ml) Inj ONE (21:53)
[2017-12-15 21:55] LABS: INR 1.4; PROTHROMBIN TIME 14.9 SECONDS (9.7-12.2)
[2017-12-15] MEDS ORDERED: Sodium Chloride 0.9% 1,000 ML IV ONE ×2 (22:00→22:36)
[2017-12-15] MEDS ORDERED: Digoxin 500 mcg/2ml (0.5 mg/2ml) Inj IVP ONE (22:01)
[2017-12-15 22:03] VITALS: PULSE 155
[2017-12-15 22:03] LABS: ALB/GLOB RATIO 1.1 (1.0-2.1); ALBUMIN 3.4 g/dL (3.5-5.0); CALCIUM 9.4 mg/dl (8.6-10.4)
[2017-12-15] MEDS ORDERED: cefTRIAXone IV 1 gm in Dextros 50 ML IVPB ONE (22:08)
[2017-12-15] MEDS ORDERED: Ciprofloxacin 400mg/200ml D5W 0 MG/0 ML BAG IVPB ONE (22:09)
[2017-12-15 22:14] LABS: ARTERIAL BLOOD GAS HCO3 22.9 mmol/L (21-28); ARTERIAL BLOOD GAS O2 SAT 100.7 % (95-98); ARTERIAL BLOOD GAS PCO2 31 mm/Hg (35-45); ARTERIAL BLOOD GAS PH 7.43 (7.35-7.45); ARTERIAL BLOOD GAS PO2 419 mm/Hg (80-100); ARTERIAL BLOOD GAS TCO2 21.6 mmol/L (22-28)
[2017-12-15 22:16] LABS: CK-MB 0.78 ng/mL (0.0-3.38); TROPONIN I 0.225 ng/mL (0.00-0.120)
[2017-12-15] MEDS ORDERED: cefTRIAXone IV 1 gm in Dextros 50 ML IVPB STA (22:17)
[2017-12-15 22:18] LABS: ANISOCYTOSIS SLIGHT; LYMPHOCYTE 1 % (20-40); MONOCYTE 3 % (0-10); NEUTROPHIL 96 % (50-75); PLATELET ESTIMATE NORMAL (NORMAL); TOTAL CELLS COUNTED 100
--- NOTE | 2017-12-15 22:19 | C.PDOC ---
History Of Present Illness 82 year old female sent from assisted for abnormal lab work. Patient with a Hx of dementia. Chief Complaint (Nursing): Abnormal Labs History Per: EMS History/Exam Limitations: no limitations Onset/Duration Of Symptoms: Hrs Current Symptoms Are (Timing): Still Present Recent travel outside of the [place]: No Additional History Per: Long-Term Past Medical History Reviewed: Historical Data, Nursing Documentation, Vital Signs Vital Signs: Last Vital Signs Temp 100.1 F H 12/15/17 21:35 Pulse 166 H 12/15/17 23:52 Resp 38 H 12/15/17 22:46 BP 124/67 12/15/17 22:56 Pulse Ox 150 H 12/15/17 21:49 - Medical History PMH: Anxiety, Arthritis (B/L KNEES), CHF, COPD, Emphysema, HTN, Hypothyroidism - [facility] Procedures ANGIOPLASTY OF OTHER NON-CORONARY VESSEL(S) (01/22/15) EXCISION OF DUODENUM, ENDO, DIAGN (11/25/17) INSEJ [id number] PERIPHERAL NON-CORONARY VES STENT(S) (01/22/15) INSERTION OF TWO VASCULAR STENTS (01/22/15) INSPECTION OF LOWER INTESTINAL TRACT, ENDO (11/25/17) PROCEDURE ON TWO VESSELS (01/22/15) RADICAL EXCIS SKIN LES (10/29/12) RESPIRATORY VENTILATION, 24-96 CONSECUTIVE HOURS (11/25/17) Family History: States: Unknown Family Hx - Social History Hx Tobacco Use: No Hx Alcohol Use: No Hx Substance Use: No - Immunization History Hx Tetanus Toxoid Vaccination: Yes Hx Influenza Vaccination: Yes (04/2017) Hx Pneumococcal Vaccination: Yes (10/13/17) Review Of Systems Review Of Systems: ROS cannot be obtained secondary to pt's inabilty to answer questions. Physical Exam - Physical Exam Appears: Other (Lethargic) Skin: Normal Color, Warm, Dry Head: Atraumatic, Normacephalic, Other (No sign of head injury) Eye(s): bilateral: Normal Inspection, PERRL, EOMI Oral Mucosa: Dry Neck: Normal, Supple Chest: Symmetrical, No Tenderness Cardiovascular: Rhythm Regular (Tachycardic) Respiratory: Decreased Breath Sounds, No Rales, No Rhonchi, No Wheezing Gastrointestinal/Abdominal: Soft, No Tenderness, No Distention Neurological/Psych: Other (No definite focal deficit) ED Course And Treatment - Laboratory Results Result Diagrams: 12/15/17 21:43 12/15/17 21:43 ECG: Interpreted By Me, Viewed By Me ECG Rhythm: Atrial Fibrillation, ST/T Changes ECG Interpretation: Abnormal Interpretation Of ECG: atrial fibrillation with rapid vent. response Rate From EC Pulse Ox Interpretation: Other - Radiology CXR: Interpreted by Me, Viewed By Me CXR Interpretation: Yes: Infiltrates (Right lower lung area) Progress Note: CT head, blood work, and CXR ordered. Cardizem administered. Disposition Discussed With : Lex Patel Doctor Will See Patient In The: Hospital Counseled Patient/Family Regarding: Diagnosis - Disposition Disposition: HOSPITALIZED Disposition Time: 22:56 Condition: GUARDED - POA Present On Arrival: None Core Measure Indicators: Code Sepsis - Clinical Impression Clinical Impression: Pneumonia, Dysrhythmia, cardiac, Atrial fibrillation with rapid ventricular response, Dehydration, Non-ST elevation FL (NSTEMI) - Scribe Statement The provider has reviewed the documentation as recorded by the Scribe Jeison Fernandes All medical record entries made by the Scribe were at my direction and personally dictated by me. I have reviewed the chart and agree that the record accurately reflects my personal performance of the history, physical exam, medical decision making, and the department course for this patient. I have also personally directed, reviewed, and agree with the discharge instructions and disposition.
[2017-12-15] MEDS ORDERED: Azithromycin 500mg/250ML NS 500 MG/250 ML BAG IVPB STA (22:21)
--- NOTE | 2017-12-15 22:23 | C.PDOC ---
Chief Complaint (Nursing): Abnormal Labs Past Medical History - Medical History PMH: Anxiety, Arthritis (B/L KNEES), CHF, COPD, Emphysema, HTN, Hypothyroidism Surgical History: Denies: Pacemaker - [facility] Procedures ANGIOPLASTY OF OTHER NON-CORONARY VESSEL(S) (01/22/15) EXCISION OF DUODENUM, ENDO, DIAGN (11/25/17) INSEJ [id number] PERIPHERAL NON-CORONARY VES STENT(S) (01/22/15) INSERTION OF TWO VASCULAR STENTS (01/22/15) INSPECTION OF LOWER INTESTINAL TRACT, ENDO (11/25/17) PROCEDURE ON TWO VESSELS (01/22/15) RADICAL EXCIS SKIN LES (10/29/12) RESPIRATORY VENTILATION, 24-96 CONSECUTIVE HOURS (11/25/17) - Social History Hx Tobacco Use: No Hx Alcohol Use: No Hx Substance Use: No - Immunization History Hx Tetanus Toxoid Vaccination: Yes Hx Influenza Vaccination: Yes (04/2017) Hx Pneumococcal Vaccination: Yes (10/13/17) ED Course And Treatment - Laboratory Results Result Diagrams: 12/15/17 21:43 Disposition - Disposition
[2017-12-15] MEDS ORDERED: Azithromycin 500 MG in Sodium Chloride 0.9% 250 ML IVPB ONE (22:30)
[2017-12-15] MEDS ORDERED: Metoprolol 1 mg/ml Inj IVP ONE ×2 (22:49→22:55)
[2017-12-15] MEDS ORDERED: Sodium Chloride 0.45% 1,000 ML IV SCH (23:45)
--- NOTE | 2017-12-15 23:59 | CP.PCM.CON ---
History of Present Illness - History of Present Illness History of Present Illness: 82 y/o female with pmx of COPD with multiple admissions to [facility] presents to [facility] with c/o SOB, SVT and fatigue. Patient was seen and examiend at bedside. Patient (+)diarrhea, (+)SOB, (++ palpitations, denies any chest pain, denies any abdominal pain. Pmx: COPD Psurg hs: reviewed and unknown allergeis: NKDA SH: no active smoking Review of Systems - Review of Systems Review of Systems: as per HPI Past Patient History - Infectious Disease Hx of Infectious Diseases: None - Past Medical History & Family History Past Medical History?: Yes - Past Social History Smoking Status: Former Smoker - CARDIAC Hx Congestive Heart Failure: Yes Hx Hypertension: Yes - PULMONARY Hx Chronic Obstructive Pulmonary Disease (COPD): Yes Hx Emphysema: Yes - NEUROLOGICAL Hx Neurological Disorder: No Hx Paralysis: No - HEENT Hx HEENT Problems: No - ENDOCRINE/METABOLIC Hx Hypothyroidism: Yes - HEMATOLOGICAL/ONCOLOGICAL Hx Blood Disorders: No Hx Blood Transfusions: No Hx Cancer: Yes ("STOMACH") - INTEGUMENTARY Hx Dermatological Problems: No - MUSCULOSKELETAL/RHEUMATOLOGICAL Hx Arthritis: Yes (B/L KNEES) - GASTROINTESTINAL Hx Gastrointestinal Disorders: No - GENITOURINARY/GYNECOLOGICAL Hx Genitourinary Disorders: No - PSYCHIATRIC Hx Anxiety: Yes Hx Substance Use: No - SURGICAL HISTORY Hx Surgeries: Yes Other/Comment: insertion of vascular stents (01/31). "STOMACH CANCER SURGERY" - ANESTHESIA Hx Anesthesia: Yes Hx Anesthesia Reactions: No Hx Malignant Hyperthermia: No Meds Allergies/Adverse Reactions: Allergies Allergy/AdvReac Type Severity Reaction Status Date / Time No Known Allergies Allergy Verified 11/18/17 14:12 - Medications Medications: Current Medications Azithromycin 500 mg/ Sodium (Chloride) 250 mls @ 167 mls/hr IVPB STAT ONE PRN Reason: Protocol Stop: 12/15/17 23:59 Potassium Chloride (Potassium Chloride 20 Meq/100 Ml) 20 meq in 100 mls @ 50 mls/hr IVPB ONCE ONE Stop: 12/16/17 00:31 Diltiazem HCl 125 mg/ Sodium (Chloride) 125 mls @ 0 mls/hr IV .Q0M SHREYAS; Per Protocol PRN Reason: Protocol Last Admin: 12/15/17 22:45 Dose: 20 mls/hr Sodium Chloride (Sodium Chloride 0.45%) 1,000 mls @ 75 mls/hr IV .[id number] SHREYAS Results - Vital Signs Recent Vital Signs: Last Vital Signs Temp 100.1 F H 12/15/17 21:35 Pulse 166 H 12/15/17 23:52 Resp 38 H 12/15/17 22:46 BP 124/67 12/15/17 22:56 Pulse Ox 150 H 12/15/17 21:49 - Labs Result Diagrams: 12/15/17 21:43 12/15/17 21:43 Labs: Laboratory Results - last 24 hr 12/15/17 12/15/17 12/15/17 21:40 21:43 21:43 WBC 17.6 H RBC 4.31 Hgb 12.8 D Hct 39.8 MCV 92.5 MCH 29.7 MCHC 32.1 L RDW 17.9 H Plt Count 264 D MPV 9.0 Neut % (Auto) 93.3 H Lymph % (Auto) 2.5 L Bracken % (Auto) 4.0 Eos % (Auto) 0.0 Baso % (Auto) 0.2 Neut # (Auto) 16.4 H Lymph # (Auto) 0.4 L Bracken # (Auto) 0.7 Eos # (Auto) 0.0 Baso # (Auto) 0.0 Neutrophils % (Manual) 96 H Lymphocytes % (Manual) 1 L Monocytes % (Manual) 3 Platelet Estimate Normal Anisocytosis (manual) Slight PT INR APTT D-Dimer, Quantitative Puncture Site pCO2 pO2 20 L HCO3 ABG pH ABG Total CO2 ABG O2 Saturation ABG Base Excess Jason Test ABG Potassium VBG pH 7.44 H VBG pCO2 30 L VBG HCO3 21.1 VBG Total CO2 21.3 L VBG O2 Sat (Calc) 34.8 L VBG Base Excess -2.7 L VBG Potassium 2.5 L* A-a O2 Difference Respiratory Index Sodium 157.0 H 157 H Chloride 122.0 H 117 H Glucose 106 H Lactate 2.0 Vent Mode Mechanical Rate FiO2 Inspiratory BiPAP Expiratory BiPAP Crit Value Called To Er nurse Crit Value Called By Ubaldo rt Crit Value Read Back Y Blood Gas Notified Time 2145 Potassium 3.5 L Carbon Dioxide 24 Anion Gap 20 BUN 73 H Creatinine 1.9 H Est GFR ( Amer) 31 Est GFR (Non-Af Amer) 25 Random Glucose 133 H Calcium 9.4 Magnesium Total Bilirubin 0.8 AST 38 H D ALT 43 Alkaline Phosphatase 97 Total Creatine Kinase 28 L CK-MB (Mass) 0.78 Troponin I 0.2250 H* NT-Pro-B Natriuret Pep 936 H Total Protein 6.4 Albumin 3.4 L Globulin 3.0 Albumin/Globulin Ratio 1.1 Arterial Blood Potassium Venous Blood Potassium 2.5 L* 12/15/17 12/15/17 12/15/17 21:43 22:06 23:06 WBC RBC Hgb Hct MCV MCH MCHC RDW Plt Count MPV Neut % (Auto) Lymph % (Auto) Bracken % (Auto) Eos % (Auto) Baso % (Auto) Neut # (Auto) Lymph # (Auto) Bracken # (Auto) Eos # (Auto) Baso # (Auto) Neutrophils % (Manual) Lymphocytes % (Manual) Monocytes % (Manual) Platelet Estimate Anisocytosis (manual) PT 14.9 H INR 1.4 APTT 28 D-Dimer, Quantitative 567 H Puncture Site Rba pCO2 31 L pO2 419 H HCO3 22.9 ABG pH 7.43 ABG Total CO2 21.6 L ABG O2 Saturation 100.7 H ABG Base Excess -2.7 L Jason Test Na ABG Potassium 2.5 L* VBG pH VBG pCO2 VBG HCO3 VBG Total CO2 VBG O2 Sat (Calc) VBG Base Excess VBG Potassium A-a O2 Difference 255.0 Respiratory Index 0.6 Sodium 155.0 H Chloride 128.0 H Glucose 119 H Lactate 1.2 Vent Mode Bipap Mechanical Rate 12 FiO2 100.0 Inspiratory BiPAP 10 Expiratory BiPAP 5 Crit Value Called To Dr. mae Crit Value Called By Ubaldo rt Crit Value Read Back Y Blood Gas Notified Time 221 Potassium Carbon Dioxide Anion Gap BUN Creatinine Est GFR ( Amer) Est GFR (Non-Af Amer) Random Glucose Calcium Magnesium 2.6 H Total Bilirubin AST ALT Alkaline Phosphatase Total Creatine Kinase CK-MB (Mass) Troponin I NT-Pro-B Natriuret Pep Total Protein Albumin Globulin Albumin/Globulin Ratio Arterial Blood Potassium 2.5 L* Venous Blood Potassium Assessment & Plan - Assessment and Plan (Free Text) Assessment: SVT: suspect 2nd dehydration (c/w high NA): continue ccb drip verapamil ggt, obtain cardiology input -Sepsis: source unknown, chekc UA/urine culture, stool culture and C. diff, monitir serial lactic, ID follow up, suspect 2nd steroids -COPD: continue outpatient treatment, pulmonary follow up, COPD, titrate off to NC -NPO -continue dvt/pud ppx Patient remains hemodyanmically stable.
[2017-12-16] MEDS ORDERED: guaiFENesin 200 mg/10 ml Syrup UD PO PRN (00:33)
[2017-12-16] MEDS ORDERED: Atropine-Diphenoxylate 0.025-2.5 mg Tab PO PRN (00:33)
[2017-12-16] MEDS ORDERED: Dextrose 5%/0.45% NS 1,000 ML IV SCH (00:45)
--- NOTE | 2017-12-16 00:51 | PCM.SEPTIC ---
Sepsis Progress Note - Reassessment Type Reassessment Type: Non-invasive reassessment - Non Invasive Reassessment Were the most recent vital sign reviewed: Yes Vital Sign (Latest): Temp Pulse Resp BP Pulse Ox 100.1 F H 166 H 38 H 124/67 150 H 12/15/17 21:35 12/15/17 23:52 12/15/17 22:46 12/15/17 22:56 12/15/17 21:49 Cardiovascular: Yes: Tachycardia, Irregularly Irregular Respiratory: Yes: Normal Breath Sounds, Crackles, Rhonchi Capillary Refill: Normal (Less than 2 sec) Skin: Warm - Invasive Reassessment (complete 2 of 4) Was a Central Venous Pressure Measurement obtained within 6 Hours after the presentation of septic shock: No Was a central venous oxygen measurement obtained within 6 hours after the presentation of septic shock: No Was a bedside cardiovascular ultrasound performed within 6 hours after the presentation of septic shock: No Was a passive leg raise performed or was a fluid challenge performed within 6 hrs of the initial fluid bolus: No
[2017-12-16] MEDS: Ipratropium 0.02% Inhal Soln (0.5 mg/2.5 ml) UD IH SCH ×2 (01:02→08:00)
[2017-12-16] MEDS: Albuterol-Ipratrop 3 mg / 0.5 (3 ml) UD INH SCH ×5 (01:03→19:11)
[2017-12-16] MEDS: Verapamil 40 MG in Sodium Chloride 0.9% 84 ML IV SCH ×2 (01:09→08:19)
[2017-12-16] MEDS: MethylPREDNISolone 40 mg Vial IV SCH ×3 (01:27→21:44)
[2017-12-16] MEDS: Piperacillin/Tazobact 3.375 GM in Sodium Chloride 100 ML IVPB SCH ×3 (01:38→16:27)
[2017-12-16] MEDS ORDERED: Sodium Chloride 0.9% 1,000 ML IV SCH (02:00)
[2017-12-16] MEDS ORDERED: Sodium Chloride 0.45% 1,000 ML IV SCH (02:30)
[2017-12-16] MEDS: Levothyroxine 100 MCG TAB PO SCH (07:00)
[2017-12-16 07:39] LABS: ABG ALLEN TEST POS; ARTERIAL BLOOD GAS HCO3 21.2 mmol/L (21-28); ARTERIAL BLOOD GAS O2 SAT 99.9 % (95-98); ARTERIAL BLOOD GAS PCO2 28 mm/Hg (35-45); ARTERIAL BLOOD GAS PH 7.42 (7.35-7.45); ARTERIAL BLOOD GAS PO2 157 mm/Hg (80-100); ARTERIAL BLOOD GAS TCO2 19.1 mmol/L (22-28)
[2017-12-16 07:48] LABS: SQUAMOUS EPITHIAL 1 /hpf (0-5); URINE BACTERIA RARE (<OCC); URINE BILIRUBIN NEGATIVE (NEGATIVE); URINE BLOOD NEGATIVE (NEGATIVE); URINE CLARITY Hazy (Clear); URINE COLOR Yellow (YELLOW); URINE GLUCOSE (UA) NORMAL (Normal); URINE HYALINE CAST 0-2 /lpf (0-2); URINE LEUKOCYTE ESTERASE NEG Leu/uL (Negative); URINE PROTEIN NEGATIVE (NEGATIVE); URINE UROBILINOGEN NORMAL mg/dL (0.2-1.0)
[2017-12-16] MEDS: Sucralfate 1 gm/10 ml Oral Susp UD PO SCH ×2 (07:50→21:43)
[2017-12-16 07:55] LABS: LYMPH # 0.3 K/uL (1.0-4.3); LYMPH % 1.9 % (20.0-40.0); MEAN CELL VOLUME 95.3 fL (81.0-99.0); MEAN CORPUSCULAR HEMOGLOBIN 30.2 pg (27.0-31.0); MEAN CORPUSCULAR HGB CONC 31.6 g/dL (33.0-37.0); MEAN PLATELET VOLUME 8.9 fL (7.2-11.7); MONO # 0.4 K/uL (0.0-0.8); MONO % 2.3 % (0.0-10.0); NEUT % 95.8 % (50.0-75.0); PLATELET COUNT 187 K/uL (130-400); RBC 3.96 Mil/uL (3.80-5.20); RED CELL DISTRIBUTION WIDTH 17.9 % (11.5-14.5); WHITE BLOOD COUNT 15.7 K/uL (4.8-10.8)
[2017-12-16] MEDS ORDERED: Fluticasone-Salmeterol 250-50mcg Diskus INH SCH (08:00)
[2017-12-16 08:25] LABS: CALCIUM 8.2 mg/dl (8.6-10.4)
--- NOTE | 2017-12-16 08:27 | CT ---
PROCEDURE: CT HEAD WITHOUT CONTRAST. HISTORY: altered mental status COMPARISON: None available. Send TECHNIQUE: Axial computed tomography images were obtained through the head/brain without intravenous contrast. Radiation dose: Total exam DLP = 830.67 mGy-cm. This CT exam was performed using one or more of the following dose reduction techniques: Automated exposure control, adjustment of the mA and/or kV according to patient size, and/or use of iterative reconstruction technique. FINDINGS: HEMORRHAGE: No intracranial hemorrhage. BRAIN: Mild chronic periventricular ischemic changes seen extending into the deep and subcortical white matter both cerebral hemispheres. There are a few scattered chronic bilateral basal nuclei lacunar type infarcts Small focus of residual the menix in the right parasagittal posterior aspect interhemispheric fissure Vascular calcifications both carotid siphons VENTRICLES: No obstructive hydrocephalus. 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 PARANASAL SINUSES: Mild mucosal thickening within several ethmoid air cells. Minimal mucosal thickening and/or small amount fluid right maxillary sinus. MASTOID AIR CELLS: Unremarkable as visualized. No inflammatory changes. OTHER FINDINGS: Changes of bilateral cataract surgery. IMPRESSION: No acute intracranial hemorrhage. Mild chronic white matter and basal nuclei ischemic changes. Moderate atrophy.
[2017-12-16 08:39] LABS: TROPONIN I 0.13 ng/mL (0.00-0.120)
[2017-12-16 09:14] LABS: LYMPHOCYTE 2 % (20-40); MONOCYTE 2 % (0-10); NEUTROPHIL 96 % (50-75); TOTAL CELLS COUNTED 100
[2017-12-16 09:15] LABS: ANISOCYTOSIS MODERATE; HYPOCHROMIC SLIGHT; OVALOCYTES SLIGHT; PLATELET ESTIMATE NORMAL (NORMAL); POIKILOCYTOSIS MODERATE; POLYCHROMIC SLIGHT; SCHISTOCYTES SLIGHT
[2017-12-16 09:16] LABS: BURR CELLS MODERATE
[2017-12-16] MEDS: Enoxaparin 30 mg Syringe SC SCH (09:59)
[2017-12-16] MEDS: Pantoprazole 40 mg EC Tab PO SCH (09:59)
[2017-12-16] MEDS: Vitamins A & D Oint UD Foilpak EXT PRN (10:00)
--- NOTE | 2017-12-16 10:26 | CP.PCM.CON ---
History of Present Illness - History of Present Illness History of Present Illness: 82 yo NHR, referred for sob, worsening mental status. In hospital, noted to be in afib wit rvr. Has elevated wbc. Renal consult for elevated Na and creatinine. Good u/o. Presently on 1/2 ns and cardizem drip. Pt with underlying dementia and cannot provide further history. Review of Systems - Review of Systems Systems not reviewed;Unavailable: Altered Mental Status Past Patient History - Infectious Disease Hx of Infectious Diseases: None - Past Medical History & Family History Past Medical History?: Yes - Past Social History Smoking Status: Former Smoker - CARDIAC Hx Congestive Heart Failure: Yes Hx Hypertension: Yes - PULMONARY Hx Chronic Obstructive Pulmonary Disease (COPD): Yes Hx Emphysema: Yes - NEUROLOGICAL Hx Neurological Disorder: No Hx Paralysis: No - HEENT Hx HEENT Problems: No - ENDOCRINE/METABOLIC Hx Hypothyroidism: Yes - HEMATOLOGICAL/ONCOLOGICAL Hx Blood Disorders: No Hx Blood Transfusions: No Hx Cancer: Yes ("STOMACH") - INTEGUMENTARY Hx Dermatological Problems: No - MUSCULOSKELETAL/RHEUMATOLOGICAL Hx Arthritis: Yes (B/L KNEES) - GASTROINTESTINAL Hx Gastrointestinal Disorders: No - GENITOURINARY/GYNECOLOGICAL Hx Genitourinary Disorders: No - PSYCHIATRIC Hx Anxiety: Yes Hx Substance Use: No - SURGICAL HISTORY Hx Surgeries: Yes Other/Comment: insertion of vascular stents (01/31). "STOMACH CANCER SURGERY" - ANESTHESIA Hx Anesthesia: Yes Hx Anesthesia Reactions: No Hx Malignant Hyperthermia: No Meds Allergies/Adverse Reactions: Allergies Allergy/AdvReac Type Severity Reaction Status Date / Time No Known Allergies Allergy Verified 11/18/17 14:12 - Medications Medications: Current Medications Albuterol/Ipratropium (Duoneb 3 Mg/0.5 Mg (3 Ml) Ud) 3 ml INH RQ6 [facility] Last Admin: 12/16/17 08:00 Dose: 3 ml Aspirin (Aspirin Chewable) 81 mg PO DAILY [facility] Last Admin: 12/16/17 09:59 Dose: 81 mg Cilostazol (Pletal) 100 mg PO DAILY [facility] Diltiazem HCl (Cardizem Cd) 120 mg PO HS [facility] Diphenoxylate HCl/Atropine (Lomotil 0.025-2.5 Mg Tablet) 1 tab PO Q6H PRN PRN Reason: Diarrhea Enoxaparin Sodium (Lovenox) 30 mg SC DAILY [facility] Last Admin: 12/16/17 09:59 Dose: 30 mg Gabapentin (Neurontin) 100 mg PO TID [facility] Last Admin: 12/16/17 09:59 Dose: 100 mg Guaifenesin (Robitussin) 200 mg PO Q4H PRN PRN Reason: Cough and congestion Verapamil HCl 40 mg/ Sodium (Chloride) 100 mls @ 12.5 mls/hr IV .Q8H [facility]REY[facility]; 5 MG/ HR PRN Reason: Protocol Last Admin: 12/16/17 08:19 Dose: 12.5 mls/hr Piperacillin Sod/Tazobactam (Sod 3.375 gm/ Sodium Chloride) 100 mls @ 200 mls/ hr IVPB Q8H [facility] PRN Reason: Protocol Last Admin: 12/16/17 09:58 Dose: 200 mls/hr Sodium Chloride (Sodium Chloride 0.45%) 1,000 mls @ 75 mls/hr IV .[id number] [facility] Last Admin: 12/16/17 02:30 Dose: 75 mls/hr Ipratropium Carlos (Atrovent) 0.5 mg IH RQ6 [facility] Last Admin: 12/16/17 08:00 Dose: Not Given Levothyroxine Sodium (Synthroid) 100 mcg PO 0630 [facility] Last Admin: 12/16/17 07:00 Dose: 100 mcg Lorazepam (Ativan) 0.5 mg PO BID [facility] Methylprednisolone (Solu-Medrol) 40 mg IV Q12 [facility] Last Admin: 12/16/17 09:59 Dose: 40 mg Metoprolol Tartrate (Lopressor) 25 mg PO BID [facility] Last Admin: 12/16/17 03:01 Dose: 25 mg Mirtazapine (Remeron) 7.5 mg PO HS [facility] Pantoprazole Sodium (Protonix Ec Tab) 40 mg PO DAILY [facility] Last Admin: 12/16/17 09:59 Dose: 40 mg Roflumilast (Daliresp) 500 mcg PO DAILY [facility] Fluticasone/Salmeterol (Advair Diskus 250/50) 1 puff INH RQ12 [facility] Last Admin: 12/16/17 07:57 Dose: Not Given Sucralfate (Carafate Oral Susp) 1 gm PO ACBHS [facility] Last Admin: 12/16/17 07:50 Dose: 1 gm Vitamin A (Vitamin A & D Oint Ud Foilpak) 1 ea EXT Q8 PRN PRN Reason: Dry SKIN Last Admin: 12/16/17 10:00 Dose: 1 ea Physical Exam - Constitutional Appears: In Acute Distress, Confused, Chronically Ill - Head Exam Head Exam: ATRAUMATIC, NORMAL INSPECTION - Eye Exam Eye Exam: EOMI, Normal appearance - ENT Exam ENT Exam: Mucous Membranes Moist - Neck Exam Neck exam: Positive for: Normal Inspection - Respiratory Exam Respiratory Exam: Decreased Breath Sounds. absent: Accessory Muscle Use - Cardiovascular Exam Cardiovascular Exam: Tachycardia, Irregular Rhythm - GI/Abdominal Exam GI & Abdominal Exam: Normal Bowel Sounds - Extremities Exam Extremities exam: Positive for: pedal edema Additional comments: heel cushions on - Neurological Exam Additional comments: moans to stimuli Results - Vital Signs Recent Vital Signs: Last Vital Signs Temp 97.5 F L 12/16/17 08:00 Pulse 88 12/16/17 09:00 Resp 40 H 12/16/17 09:00 BP 129/69 12/16/17 09:00 Pulse Ox 150 H 12/15/17 21:49 - Labs Result Diagrams: 12/16/17 07:51 12/16/17 07:51 Labs: Laboratory Results - last 24 hr 12/15/17 12/15/17 12/15/17 21:40 21:43 21:43 WBC 17.6 H RBC 4.31 Hgb 12.8 D Hct 39.8 MCV 92.5 MCH 29.7 MCHC 32.1 L RDW 17.9 H Plt Count 264 D MPV 9.0 Neut % (Auto) 93.3 H Lymph % (Auto) 2.5 L [place] % (Auto) 4.0 Eos % (Auto) 0.0 Baso % (Auto) 0.2 Neut # (Auto) 16.4 H Lymph # (Auto) 0.4 L [place] # (Auto) 0.7 Eos # (Auto) 0.0 Baso # (Auto) 0.0 Neutrophils % (Manual) 96 H Lymphocytes % (Manual) 1 L Monocytes % (Manual) 3 Platelet Estimate Normal Polychromasia Hypochromasia (manual) Poikilocytosis (manual Anisocytosis (manual) Slight Ovalocytes Tarah Cells Schistocytes PT INR APTT D-Dimer, Quantitative Puncture Site pCO2 pO2 20 L HCO3 ABG pH ABG Total CO2 ABG O2 Saturation ABG Base Excess Jason Test ABG Potassium VBG pH 7.44 H VBG pCO2 30 L VBG HCO3 21.1 VBG Total CO2 21.3 L VBG O2 Sat (Calc) 34.8 L VBG Base Excess -2.7 L VBG Potassium 2.5 L* A-a O2 Difference Respiratory Index Sodium 157.0 H 157 H Chloride 122.0 H 117 H Glucose 106 H Lactate 2.0 Vent Mode Mechanical Rate FiO2 Inspiratory BiPAP Expiratory BiPAP Crit Value Called To Er nurse Crit Value Called By Ubaldo rt Crit Value Read Back Y Blood Gas Notified Time 2145 Potassium 3.5 L Carbon Dioxide 24 Anion Gap 20 BUN 73 H Creatinine 1.9 H Est GFR ( Amer) 31 Est GFR (Non-Af Amer) 25 Random Glucose 133 H Calcium 9.4 Phosphorus Magnesium Total Bilirubin 0.8 AST 38 H D ALT 43 Alkaline Phosphatase 97 Total Creatine Kinase 28 L CK-MB (Mass) 0.78 Troponin I 0.2250 H* NT-Pro-B Natriuret Pep 936 H Total Protein 6.4 Albumin 3.4 L Globulin 3.0 Albumin/Globulin Ratio 1.1 Arterial Blood Potassium Venous Blood Potassium 2.5 L* Urine Color Urine Clarity Urine pH Ur Specific [place] Urine Protein Urine Glucose (UA) Urine Ketones Urine Blood Urine Nitrate Urine Bilirubin Urine Urobilinogen Ur Leukocyte Esterase Urine WBC (Auto) Urine RBC (Auto) Ur Squamous Epith Cells Urine Bacteria Hyaline Casts 12/15/17 12/15/17 12/15/17 21:43 22:06 23:06 WBC RBC Hgb Hct MCV MCH MCHC RDW Plt Count MPV Neut % (Auto) Lymph % (Auto) [place] % (Auto) Eos % (Auto) Baso % (Auto) Neut # (Auto) Lymph # (Auto) [place] # (Auto) Eos # (Auto) Baso # (Auto) Neutrophils % (Manual) Lymphocytes % (Manual) Monocytes % (Manual) Platelet Estimate Polychromasia Hypochromasia (manual) Poikilocytosis (manual Anisocytosis (manual) Ovalocytes Tarah Cells Schistocytes PT 14.9 H INR 1.4 APTT 28 D-Dimer, Quantitative 567 H Puncture Site Rba pCO2 31 L pO2 419 H HCO3 22.9 ABG pH 7.43 ABG Total CO2 21.6 L ABG O2 Saturation 100.7 H ABG Base Excess -2.7 L Jason Test Na ABG Potassium 2.5 L* VBG pH VBG pCO2 VBG HCO3 VBG Total CO2 VBG O2 Sat (Calc) VBG Base Excess VBG Potassium A-a O2 Difference 255.0 Respiratory Index 0.6 Sodium 155.0 H Chloride 128.0 H Glucose 119 H Lactate 1.2 Vent Mode Bipap Mechanical Rate 12 FiO2 100.0 Inspiratory BiPAP 10 Expiratory BiPAP 5 Crit Value Called To Dr. mae Crit Value Called By Ubaldo rt Crit Value Read Back Y Blood Gas Notified Time 221 Potassium Carbon Dioxide Anion Gap BUN Creatinine Est GFR ( Amer) Est GFR (Non-Af Amer) Random Glucose Calcium Phosphorus Magnesium 2.6 H Total Bilirubin AST ALT Alkaline Phosphatase Total Creatine Kinase CK-MB (Mass) Troponin I NT-Pro-B Natriuret Pep Total Protein Albumin Globulin Albumin/Globulin Ratio Arterial Blood Potassium 2.5 L* Venous Blood Potassium Urine Color Urine Clarity Urine pH Ur Specific [place] Urine Protein Urine Glucose (UA) Urine Ketones Urine Blood Urine Nitrate Urine Bilirubin Urine Urobilinogen Ur Leukocyte Esterase Urine WBC (Auto) Urine RBC (Auto) Ur Squamous Epith Cells Urine Bacteria Hyaline Casts 12/16/17 12/16/17 12/16/17 07:08 07:35 07:51 WBC RBC Hgb Hct MCV MCH MCHC RDW Plt Count MPV Neut % (Auto) Lymph % (Auto) [place] % (Auto) Eos % (Auto) Baso % (Auto) Neut # (Auto) Lymph # (Auto) [place] # (Auto) Eos # (Auto) Baso # (Auto) Neutrophils % (Manual) Lymphocytes % (Manual) Monocytes % (Manual) Platelet Estimate Polychromasia Hypochromasia (manual) Poikilocytosis (manual Anisocytosis (manual) Ovalocytes [place] Cells Schistocytes PT INR APTT D-Dimer, Quantitative Puncture Site Rr pCO2 28 L pO2 157 H HCO3 21.2 ABG pH 7.42 ABG Total CO2 19.1 L ABG O2 Saturation 99.9 H ABG Base Excess -4.9 L Jason Test Pos ABG Potassium 3.0 L VBG pH VBG pCO2 VBG HCO3 VBG Total CO2 VBG O2 Sat (Calc) VBG Base Excess VBG Potassium A-a O2 Difference 165.0 Respiratory Index 1.1 Sodium 154.0 H Chloride 126.0 H Glucose 115 H Lactate 1.0 Vent Mode Bipap Mechanical Rate FiO2 50.0 Inspiratory BiPAP 10 Expiratory BiPAP 5 Crit Value Called To Crit Value Called By Crit Value Read Back Blood Gas Notified Time Potassium Carbon Dioxide Anion Gap BUN Creatinine Est GFR ( Amer) Est GFR (Non-Af Amer) Random Glucose Calcium Phosphorus Magnesium Total Bilirubin AST ALT Alkaline Phosphatase Total Creatine Kinase CK-MB (Mass) Troponin I NT-Pro-B Natriuret Pep 586 Total Protein Albumin Globulin Albumin/Globulin Ratio Arterial Blood Potassium 3.0 L Venous Blood Potassium Urine Color Yellow Urine Clarity Hazy Urine pH 5.0 Ur Specific [place] 1.019 Urine Protein Negative Urine Glucose (UA) Normal Urine Ketones Negative Urine Blood Negative Urine Nitrate Negative Urine Bilirubin Negative Urine Urobilinogen Normal Ur Leukocyte Esterase Neg Urine WBC (Auto) 2 Urine RBC (Auto) 1 Ur Squamous Epith Cells 1 Urine Bacteria Rare Hyaline Casts 0-2 12/16/17 12/16/17 07:51 07:51 WBC 15.7 H RBC 3.96 Hgb 12.0 Hct 37.8 MCV 95.3 D MCH 30.2 MCHC 31.6 L RDW 17.9 H Plt Count 187 MPV 8.9 Neut % (Auto) 95.8 H Lymph % (Auto) 1.9 L [place] % (Auto) 2.3 Eos % (Auto) 0.0 Baso % (Auto) 0.0 Neut # (Auto) 15.0 H Lymph # (Auto) 0.3 L [place] # (Auto) 0.4 Eos # (Auto) 0.0 Baso # (Auto) 0.0 Neutrophils % (Manual) 96 H Lymphocytes % (Manual) 2 L Monocytes % (Manual) 2 Platelet Estimate Normal Polychromasia Slight Hypochromasia (manual) Slight Poikilocytosis (manual Moderate Anisocytosis (manual) Moderate Ovalocytes Slight Tarah Cells Moderate Schistocytes Slight PT INR APTT D-Dimer, Quantitative Puncture Site pCO2 pO2 HCO3 ABG pH ABG Total CO2 ABG O2 Saturation ABG Base Excess Jason Test ABG Potassium VBG pH VBG pCO2 VBG HCO3 VBG Total CO2 VBG O2 Sat (Calc) VBG Base Excess VBG Potassium A-a O2 Difference Respiratory Index Sodium 158 H Chloride 125 H Glucose Lactate Vent Mode Mechanical Rate FiO2 Inspiratory BiPAP Expiratory BiPAP Crit Value Called To Crit Value Called By Crit Value Read Back Blood Gas Notified Time Potassium 4.0 Carbon Dioxide 16 L Anion Gap 21 H BUN 51 H Creatinine 1.3 H Est GFR ( Amer) 47 Est GFR (Non-Af Amer) 39 Random Glucose 102 Calcium 8.2 L Phosphorus 3.3 Magnesium 2.1 Total Bilirubin 0.5 AST 67 H D ALT 50 Alkaline Phosphatase 84 Total Creatine Kinase CK-MB (Mass) Troponin I 0.1300 H* NT-Pro-B Natriuret Pep Total Protein 5.9 L Albumin 3.0 L Globulin 2.9 Albumin/Globulin Ratio 1.0 Arterial Blood Potassium Venous Blood Potassium Urine Color Urine Clarity Urine pH Ur Specific [place] Urine Protein Urine Glucose (UA) Urine Ketones Urine Blood Urine Nitrate Urine Bilirubin Urine Urobilinogen Ur Leukocyte Esterase Urine WBC (Auto) Urine RBC (Auto) Ur Squamous Epith Cells Urine Bacteria Hyaline Casts Assessment & Plan - Assessment and Plan (Free Text) Assessment: loren hypernatremia metabolic acidosis dementia afib wit rvr culture and empiric AB bipap support change ivf to hypotonic with hco3 avoid nephrotoxic agents
[2017-12-16] MEDS: Cilostazol 100 mg Tab UD PO SCH (10:53)
--- NOTE | 2017-12-16 13:02 | CP.CCUPN ---
CCU Subjective - Physician Review Events Since Last Encounter (Free Text): 12/16/17 12:58 Patient seen and examined 82-year-old female with history of COPD admitted with increasing shortness of breath and SVT Patient now on BiPAP in Normal sinus rhythm C. difficile colitis positive Getting IV fluids for hypernatremia CCU Objective - Vital Signs / Intake & Output Vital Signs (Last 4 hours): Vital Signs Pulse Resp BP 12/16/17 12:00 93 H 23 100/79 12/16/17 11:53 114 H 12/16/17 11:00 118 H 21 105/60 12/16/17 10:00 123 H 20 112/64 12/16/17 09:00 88 40 H 129/69 Intake and Output (Last 8hrs): Intake & Output 12/15/17 12/16/17 12/16/17 22:59 06:59 14:59 Intake Total 675.0 725.0 Output Total 201 112 Balance 474.0 613.0 Weight 100 lb 100 lb Intake: Intake, IV Amount 575.0 525.0 rt ac #1 port 75.0 75.0 rt ac distal port 100 rt. ac #2 port 400 450 Tube Feeding 200 Albumin 100 Output: Urine 200 112 Urethral (Ramos) 200 112 Urine/Stool Mix 1 Other: # Voids Urine, Voided 1 # Bowel Movements 1 - Physical Exam Head: Positive for: Atraumatic, Normocephalic Conjunctiva: Positive for: Normal Mouth: Positive for: Dry Neck: Positive for: Normal Range of Motion Respiratory/Chest: Positive for: Clear to Auscultation, Decreased Breath Sounds Cardiovascular: Positive for: Regular Rate and Rhythm Abdomen: Positive for: Normal Bowel Sounds Upper Extremity: Positive for: Normal Inspection Lower Extremity: Positive for: Normal Inspection Skin: Positive for: Warm Psychiatric: Positive for: Lethargic - Medications Active Medications: Active Medications Generic Name Dose Route Start Last Admin Trade Name Freq PRN Reason Stop Dose Admin Albuterol/Ipratropium 3 ml 12/16/17 02:00 12/16/17 08:00 Duoneb 3 Mg/0.5 Mg (3 Ml) Ud INH 3 ml RQ6 SHREYAS Administration Aspirin 81 mg 12/16/17 10:00 12/16/17 09:59 Aspirin Chewable PO 81 mg DAILY SHREYAS Administration Cilostazol 100 mg 12/16/17 10:00 12/16/17 10:53 Pletal PO 100 mg DAILY SHREYAS Administration Diltiazem HCl 120 mg 12/16/17 22:00 Cardizem Cd PO HS SHREYAS Diphenoxylate HCl/Atropine 1 tab 12/16/17 00:33 Lomotil 0.025-2.5 Mg Tablet PO Q6H PRN Diarrhea Enoxaparin Sodium 30 mg 12/16/17 10:00 12/16/17 09:59 Lovenox SC 30 mg DAILY SHREYAS Administration Gabapentin 100 mg 12/16/17 10:00 12/16/17 09:59 Neurontin PO 100 mg TID SHREYAS Administration Guaifenesin 200 mg 12/16/17 00:33 Robitussin PO Q4H PRN Cough and congestion Verapamil HCl 40 mg/ Sodium 100 mls @ 12.5 mls/hr 12/16/17 00:15 12/16/17 08: 19 Chloride IV 12.5 mls/hr .Q8H SHREYAS Administration Protocol 5 MG/HR Piperacillin Sod/Tazobactam 100 mls @ 200 mls/hr 12/16/17 01:00 12/16/17 09: 58 Sod 3.375 gm/ Sodium Chloride IVPB 200 mls/hr Q8H SHREYAS Administration Protocol Sodium Bicarbonate 100 meq/ 1,100 mls @ 75 mls/hr 12/16/17 11:30 Dextrose IV .[id number] SHREYAS Ipratropium [place] 0.5 mg 12/16/17 02:00 12/16/17 08:00 Atrovent IH Not Given RQ6 SHREYAS Levothyroxine Sodium 100 mcg 12/16/17 06:30 12/16/17 07:00 Synthroid PO 100 mcg 0630 SHREYAS Administration Methylprednisolone 40 mg 12/16/17 00:45 12/16/17 09:59 Solu-Medrol IV 40 mg Q12 SHREYAS Administration Mirtazapine 7.5 mg 12/16/17 22:00 Remeron PO HS [facility] Pantoprazole Sodium 40 mg 12/16/17 10:00 12/16/17 09:59 Protonix Ec Tab PO 40 mg DAILY SHREYAS Administration Roflumilast 500 mcg 12/16/17 10:00 Daliresp PO DAILY [facility] Fluticasone/Salmeterol 1 puff 12/16/17 08:00 12/16/17 07:57 Advair Diskus 250/50 INH Not Given RQ12 SHREYAS Sucralfate 1 gm 12/16/17 07:30 12/16/17 07:50 Carafate Oral Susp PO 1 gm [facility] SHREYAS Administration Vitamin A 1 ea 12/16/17 00:33 12/16/17 10:00 Vitamin A & D Oint Ud Foilpak EXT 1 ea Q8 PRN Administration Dry SKIN - Patient Studies Lab Studies: Lab Studies 12/16/17 12/16/17 12/16/17 Range/Units 07:51 07:51 07:51 WBC 15.7 H (4.8-10.8) K/uL RBC 3.96 (3.80-5.20) Mil/uL Hgb 12.0 (11.0-16.0) g/dL Hct 37.8 (34.0-47.0) % MCV 95.3 D (81.0-99.0) fL MCH 30.2 (27.0-31.0) pg MCHC 31.6 L (33.0-37.0) g/dL RDW 17.9 H (11.5-14.5) % Plt Count 187 (130-400) K/uL MPV 8.9 (7.2-11.7) fL Neut % (Auto) 95.8 H (50.0-75.0) % Lymph % (Auto) 1.9 L (20.0-40.0) % Hale % (Auto) 2.3 (0.0-10.0) % Eos % (Auto) 0.0 (0.0-4.0) % Baso % (Auto) 0.0 (0.0-2.0) % Neut # (Auto) 15.0 H (1.8-7.0) K/uL Lymph # (Auto) 0.3 L (1.0-4.3) K/uL Hale # (Auto) 0.4 (0.0-0.8) K/uL Eos # (Auto) 0.0 (0.0-0.7) K/uL Baso # (Auto) 0.0 (0.0-0.2) K/uL Neutrophils % (Manual) 96 H (50-75) % Lymphocytes % (Manual) 2 L (20-40) % Monocytes % (Manual) 2 (0-10) % Platelet Estimate Normal (NORMAL) Polychromasia Slight Hypochromasia (manual) Slight Poikilocytosis (manual Moderate Anisocytosis (manual) Moderate Ovalocytes Slight Tarah Cells Moderate Schistocytes Slight PT (9.7-12.2) SECONDS INR APTT (21-34) SECONDS D-Dimer, Quantitative (0-243) ng/mlDDU Puncture Site pCO2 (35-45) mm/Hg pO2 (30-55) mm/Hg HCO3 (21-28) mmol/L ABG pH (7.35-7.45) ABG Total CO2 (22-28) mmol/L ABG O2 Saturation (95-98) % ABG Base Excess (-2.0-3.0) mmol/L Jason Test ABG Potassium (3.6-5.2) mmol/L VBG pH (7.32-7.43) VBG pCO2 (40-60) mmHg VBG HCO3 mmol/L VBG Total CO2 (22-28) mmol/L VBG O2 Sat (Calc) (40-65) % VBG Base Excess (0.0-2.0) mmol/L VBG Potassium (3.6-5.2) mmol/L A-a O2 Difference mm/Hg Respiratory Index Sodium 158 H (132-148) mmol/l Chloride 125 H (98-107) mmol/L Glucose (65-105) mg/dl Lactate (0.7-2.1) mmol/L Vent Mode Mechanical Rate FiO2 % Inspiratory BiPAP Expiratory BiPAP Crit Value Called To Crit Value Called By Crit Value Read Back Blood Gas Notified Time Potassium 4.0 (3.6-5.2) mmol/L Carbon Dioxide 16 L (22-30) mmol/L Anion Gap 21 H (10-20) BUN 51 H (7-17) mg/dL Creatinine 1.3 H (0.7-1.2) mg/dL Est GFR ( Amer) 47 Est GFR (Non-Af Amer) 39 Random Glucose 102 (65-105) mg/dL Calcium 8.2 L (8.6-10.4) mg/dl Phosphorus 3.3 (2.5-4.5) mg/dL Magnesium 2.1 (1.6-2.3) mg/dL Total Bilirubin 0.5 (0.2-1.3) mg/dL AST 67 H D (14-36) U/L ALT 50 (9-52) U/L Alkaline Phosphatase 84 (38-126) U/L Total Creatine Kinase (30-135) U/L CK-MB (Mass) (0.0-3.38) ng/mL Troponin I 0.1300 H* (0.00-0.120) ng/mL NT-Pro-B Natriuret Pep 586 (0-900) pg/mL Total Protein 5.9 L (6.3-8.3) g/dL Albumin 3.0 L (3.5-5.0) g/dL Globulin 2.9 (2.2-3.9) gm/dL Albumin/Globulin Ratio 1.0 (1.0-2.1) Arterial Blood Potassium (3.6-5.2) mmol/L Venous Blood Potassium (3.6-5.2) mmol/L Urine Color (YELLOW) Urine Clarity (Clear) Urine pH (5.0-8.0) Ur Specific [place] (1.003-1.030) Urine Protein (NEGATIVE) mg/dL Urine Glucose (UA) (Normal) mg/dL Urine Ketones (NEGATIVE) mg/dL Urine Blood (NEGATIVE) Urine Nitrate (NEGATIVE) Urine Bilirubin (NEGATIVE) Urine Urobilinogen (0.2-1.0) mg/dL Ur Leukocyte Esterase (Negative) Ashley/uL Urine WBC (Auto) (0-5) /hpf Urine RBC (Auto) (0-3) /hpf Ur Squamous Epith Cells (0-5) /hpf Urine Bacteria (<OCC) Hyaline Casts (0-2) /lpf 12/16/17 12/16/17 12/15/17 Range/Units 07:35 07:08 23:06 WBC (4.8-10.8) K/uL RBC (3.80-5.20) Mil/uL Hgb (11.0-16.0) g/dL Hct (34.0-47.0) % MCV (81.0-99.0) fL MCH (27.0-31.0) pg MCHC (33.0-37.0) g/dL RDW (11.5-14.5) % Plt Count (130-400) K/uL MPV (7.2-11.7) fL Neut % (Auto) (50.0-75.0) % Lymph % (Auto) (20.0-40.0) % Hale % (Auto) (0.0-10.0) % Eos % (Auto) (0.0-4.0) % Baso % (Auto) (0.0-2.0) % Neut # (Auto) (1.8-7.0) K/uL Lymph # (Auto) (1.0-4.3) K/uL Hale # (Auto) (0.0-0.8) K/uL Eos # (Auto) (0.0-0.7) K/uL Baso # (Auto) (0.0-0.2) K/uL Neutrophils % (Manual) (50-75) % Lymphocytes % (Manual) (20-40) % Monocytes % (Manual) (0-10) % Platelet Estimate (NORMAL) Polychromasia Hypochromasia (manual) Poikilocytosis (manual Anisocytosis (manual) Ovalocytes Tarah Cells Schistocytes PT (9.7-12.2) SECONDS INR APTT (21-34) SECONDS D-Dimer, Quantitative (0-243) ng/mlDDU Puncture Site Rr pCO2 28 L (35-45) mm/Hg pO2 157 H (30-55) mm/Hg HCO3 21.2 (21-28) mmol/L ABG pH 7.42 (7.35-7.45) ABG Total CO2 19.1 L (22-28) mmol/L ABG O2 Saturation 99.9 H (95-98) % ABG Base Excess -4.9 L (-2.0-3.0) mmol/L Jason Test Pos ABG Potassium 3.0 L (3.6-5.2) mmol/L VBG pH (7.32-7.43) VBG pCO2 (40-60) mmHg VBG HCO3 mmol/L VBG Total CO2 (22-28) mmol/L VBG O2 Sat (Calc) (40-65) % VBG Base Excess (0.0-2.0) mmol/L VBG Potassium (3.6-5.2) mmol/L A-a O2 Difference 165.0 mm/Hg Respiratory Index 1.1 Sodium 154.0 H (132-148) mmol/l Chloride 126.0 H (98-107) mmol/L Glucose 115 H (65-105) mg/dl Lactate 1.0 (0.7-2.1) mmol/L Vent Mode Bipap Mechanical Rate FiO2 50.0 % Inspiratory BiPAP 10 Expiratory BiPAP 5 Crit Value Called To Crit Value Called By Crit Value Read Back Blood Gas Notified Time Potassium (3.6-5.2) mmol/L Carbon Dioxide (22-30) mmol/L Anion Gap (10-20) BUN (7-17) mg/dL Creatinine (0.7-1.2) mg/dL Est GFR ( Amer) Est GFR (Non-Af Amer) Random Glucose (65-105) mg/dL Calcium (8.6-10.4) mg/dl Phosphorus (2.5-4.5) mg/dL Magnesium 2.6 H (1.6-2.3) mg/dL Total Bilirubin (0.2-1.3) mg/dL AST (14-36) U/L ALT (9-52) U/L Alkaline Phosphatase (38-126) U/L Total Creatine Kinase (30-135) U/L CK-MB (Mass) (0.0-3.38) ng/mL Troponin I (0.00-0.120) ng/mL NT-Pro-B Natriuret Pep (0-900) pg/mL Total Protein (6.3-8.3) g/dL Albumin (3.5-5.0) g/dL Globulin (2.2-3.9) gm/dL Albumin/Globulin Ratio (1.0-2.1) Arterial Blood Potassium 3.0 L (3.6-5.2) mmol/L Venous Blood Potassium (3.6-5.2) mmol/L Urine Color Yellow (YELLOW) Urine Clarity Hazy (Clear) Urine pH 5.0 (5.0-8.0) Ur Specific [place] 1.019 (1.003-1.030) Urine Protein Negative (NEGATIVE) mg/dL Urine Glucose (UA) Normal (Normal) mg/dL Urine Ketones Negative (NEGATIVE) mg/dL Urine Blood Negative (NEGATIVE) Urine Nitrate Negative (NEGATIVE) Urine Bilirubin Negative (NEGATIVE) Urine Urobilinogen Normal (0.2-1.0) mg/dL Ur Leukocyte Esterase Neg (Negative) Ashley/uL Urine WBC (Auto) 2 (0-5) /hpf Urine RBC (Auto) 1 (0-3) /hpf Ur Squamous Epith Cells 1 (0-5) /hpf Urine Bacteria Rare (<OCC) Hyaline Casts 0-2 (0-2) /lpf 12/15/17 12/15/17 12/15/17 Range/Units 22:06 21:43 21:43 WBC 17.6 H (4.8-10.8) K/uL RBC 4.31 (3.80-5.20) Mil/uL Hgb 12.8 D (11.0-16.0) g/dL Hct 39.8 (34.0-47.0) % MCV 92.5 (81.0-99.0) fL MCH 29.7 (27.0-31.0) pg MCHC 32.1 L (33.0-37.0) g/dL RDW 17.9 H (11.5-14.5) % Plt Count 264 D (130-400) K/uL MPV 9.0 (7.2-11.7) fL Neut % (Auto) 93.3 H (50.0-75.0) % Lymph % (Auto) 2.5 L (20.0-40.0) % Hale % (Auto) 4.0 (0.0-10.0) % Eos % (Auto) 0.0 (0.0-4.0) % Baso % (Auto) 0.2 (0.0-2.0) % Neut # (Auto) 16.4 H (1.8-7.0) K/uL Lymph # (Auto) 0.4 L (1.0-4.3) K/uL Hale # (Auto) 0.7 (0.0-0.8) K/uL Eos # (Auto) 0.0 (0.0-0.7) K/uL Baso # (Auto) 0.0 (0.0-0.2) K/uL Neutrophils % (Manual) 96 H (50-75) % Lymphocytes % (Manual) 1 L (20-40) % Monocytes % (Manual) 3 (0-10) % Platelet Estimate Normal (NORMAL) Polychromasia Hypochromasia (manual) Poikilocytosis (manual Anisocytosis (manual) Slight Ovalocytes [place] Cells Schistocytes PT 14.9 H (9.7-12.2) SECONDS INR 1.4 APTT 28 (21-34) SECONDS D-Dimer, Quantitative 567 H (0-243) ng/mlDDU Puncture Site Rba pCO2 31 L (35-45) mm/Hg pO2 419 H (30-55) mm/Hg HCO3 22.9 (21-28) mmol/L ABG pH 7.43 (7.35-7.45) ABG Total CO2 21.6 L (22-28) mmol/L ABG O2 Saturation 100.7 H (95-98) % ABG Base Excess -2.7 L (-2.0-3.0) mmol/L Jason Test Na ABG Potassium 2.5 L* (3.6-5.2) mmol/L VBG pH (7.32-7.43) VBG pCO2 (40-60) mmHg VBG HCO3 mmol/L VBG Total CO2 (22-28) mmol/L VBG O2 Sat (Calc) (40-65) % VBG Base Excess (0.0-2.0) mmol/L VBG Potassium (3.6-5.2) mmol/L A-a O2 Difference 255.0 mm/Hg Respiratory Index 0.6 Sodium 155.0 H (132-148) mmol/l Chloride 128.0 H (98-107) mmol/L Glucose 119 H (65-105) mg/dl Lactate 1.2 (0.7-2.1) mmol/L Vent Mode Bipap Mechanical Rate 12 FiO2 100.0 % Inspiratory BiPAP 10 Expiratory BiPAP 5 Crit Value Called To Dr. aranda Crit Value Called By Ubaldo rt Crit Value Read Back Y Blood Gas Notified Time 2213 Potassium (3.6-5.2) mmol/L Carbon Dioxide (22-30) mmol/L Anion Gap (10-20) BUN (7-17) mg/dL Creatinine (0.7-1.2) mg/dL Est GFR ( Amer) Est GFR (Non-Af Amer) Random Glucose (65-105) mg/dL Calcium (8.6-10.4) mg/dl Phosphorus (2.5-4.5) mg/dL Magnesium (1.6-2.3) mg/dL Total Bilirubin (0.2-1.3) mg/dL AST (14-36) U/L ALT (9-52) U/L Alkaline Phosphatase (38-126) U/L Total Creatine Kinase (30-135) U/L CK-MB (Mass) (0.0-3.38) ng/mL Troponin I (0.00-0.120) ng/mL NT-Pro-B Natriuret Pep (0-900) pg/mL Total Protein (6.3-8.3) g/dL Albumin (3.5-5.0) g/dL Globulin (2.2-3.9) gm/dL Albumin/Globulin Ratio (1.0-2.1) Arterial Blood Potassium 2.5 L* (3.6-5.2) mmol/L Venous Blood Potassium (3.6-5.2) mmol/L Urine Color (YELLOW) Urine Clarity (Clear) Urine pH (5.0-8.0) Ur Specific [place] (1.003-1.030) Urine Protein (NEGATIVE) mg/dL Urine Glucose (UA) (Normal) mg/dL Urine Ketones (NEGATIVE) mg/dL Urine Blood (NEGATIVE) Urine Nitrate (NEGATIVE) Urine Bilirubin (NEGATIVE) Urine Urobilinogen (0.2-1.0) mg/dL Ur Leukocyte Esterase (Negative) Ashley/uL Urine WBC (Auto) (0-5) /hpf Urine RBC (Auto) (0-3) /hpf Ur Squamous Epith Cells (0-5) /hpf Urine Bacteria (<OCC) Hyaline Casts (0-2) /lpf 12/15/17 12/15/17 Range/Units 21:43 21:40 WBC (4.8-10.8) K/uL RBC (3.80-5.20) Mil/uL Hgb (11.0-16.0) g/dL Hct (34.0-47.0) % MCV (81.0-99.0) fL MCH (27.0-31.0) pg MCHC (33.0-37.0) g/dL RDW (11.5-14.5) % Plt Count (130-400) K/uL MPV (7.2-11.7) fL Neut % (Auto) (50.0-75.0) % Lymph % (Auto) (20.0-40.0) % Hale % (Auto) (0.0-10.0) % Eos % (Auto) (0.0-4.0) % Baso % (Auto) (0.0-2.0) % Neut # (Auto) (1.8-7.0) K/uL Lymph # (Auto) (1.0-4.3) K/uL Hale # (Auto) (0.0-0.8) K/uL Eos # (Auto) (0.0-0.7) K/uL Baso # (Auto) (0.0-0.2) K/uL Neutrophils % (Manual) (50-75) % Lymphocytes % (Manual) (20-40) % Monocytes % (Manual) (0-10) % Platelet Estimate (NORMAL) Polychromasia Hypochromasia (manual) Poikilocytosis (manual Anisocytosis (manual) Ovalocytes [place] Cells Schistocytes PT (9.7-12.2) SECONDS INR APTT (21-34) SECONDS D-Dimer, Quantitative (0-243) ng/mlDDU Puncture Site pCO2 (35-45) mm/Hg pO2 20 L (30-55) mm/Hg HCO3 (21-28) mmol/L ABG pH (7.35-7.45) ABG Total CO2 (22-28) mmol/L ABG O2 Saturation (95-98) % ABG Base Excess (-2.0-3.0) mmol/L Jason Test ABG Potassium (3.6-5.2) mmol/L VBG pH 7.44 H (7.32-7.43) VBG pCO2 30 L (40-60) mmHg VBG HCO3 21.1 mmol/L VBG Total CO2 21.3 L (22-28) mmol/L VBG O2 Sat (Calc) 34.8 L (40-65) % VBG Base Excess -2.7 L (0.0-2.0) mmol/L VBG Potassium 2.5 L* (3.6-5.2) mmol/L A-a O2 Difference mm/Hg Respiratory Index Sodium 157 H 157.0 H (132-148) mmol/l Chloride 117 H 122.0 H (98-107) mmol/L Glucose 106 H (65-105) mg/dl Lactate 2.0 (0.7-2.1) mmol/L Vent Mode Mechanical Rate FiO2 % Inspiratory BiPAP Expiratory BiPAP Crit Value Called To Er nurse Crit Value Called By Ubaldo rt Crit Value Read Back Y Blood Gas Notified Time 2145 Potassium 3.5 L (3.6-5.2) mmol/L Carbon Dioxide 24 (22-30) mmol/L Anion Gap 20 (10-20) BUN 73 H (7-17) mg/dL Creatinine 1.9 H (0.7-1.2) mg/dL Est GFR ( Amer) 31 Est GFR (Non-Af Amer) 25 Random Glucose 133 H (65-105) mg/dL Calcium 9.4 (8.6-10.4) mg/dl Phosphorus (2.5-4.5) mg/dL Magnesium (1.6-2.3) mg/dL Total Bilirubin 0.8 (0.2-1.3) mg/dL AST 38 H D (14-36) U/L ALT 43 (9-52) U/L Alkaline Phosphatase 97 (38-126) U/L Total Creatine Kinase 28 L (30-135) U/L CK-MB (Mass) 0.78 (0.0-3.38) ng/mL Troponin I 0.2250 H* (0.00-0.120) ng/mL NT-Pro-B Natriuret Pep 936 H (0-900) pg/mL Total Protein 6.4 (6.3-8.3) g/dL Albumin 3.4 L (3.5-5.0) g/dL Globulin 3.0 (2.2-3.9) gm/dL Albumin/Globulin Ratio 1.1 (1.0-2.1) Arterial Blood Potassium (3.6-5.2) mmol/L Venous Blood Potassium 2.5 L* (3.6-5.2) mmol/L Urine Color (YELLOW) Urine Clarity (Clear) Urine pH (5.0-8.0) Ur Specific [place] (1.003-1.030) Urine Protein (NEGATIVE) mg/dL Urine Glucose (UA) (Normal) mg/dL Urine Ketones (NEGATIVE) mg/dL Urine Blood (NEGATIVE) Urine Nitrate (NEGATIVE) Urine Bilirubin (NEGATIVE) Urine Urobilinogen (0.2-1.0) mg/dL Ur Leukocyte Esterase (Negative) Ashley/uL Urine WBC (Auto) (0-5) /hpf Urine RBC (Auto) (0-3) /hpf Ur Squamous Epith Cells (0-5) /hpf Urine Bacteria (<OCC) Hyaline Casts (0-2) /lpf Laboratory Results - last 24 hr 12/15/17 12/15/17 12/15/17 21:40 21:43 21:43 WBC 17.6 H RBC 4.31 Hgb 12.8 D Hct 39.8 MCV 92.5 MCH 29.7 MCHC 32.1 L RDW 17.9 H Plt Count 264 D MPV 9.0 Neut % (Auto) 93.3 H Lymph % (Auto) 2.5 L Hale % (Auto) 4.0 Eos % (Auto) 0.0 Baso % (Auto) 0.2 Neut # (Auto) 16.4 H Lymph # (Auto) 0.4 L Hale # (Auto) 0.7 Eos # (Auto) 0.0 Baso # (Auto) 0.0 Neutrophils % (Manual) 96 H Lymphocytes % (Manual) 1 L Monocytes % (Manual) 3 Platelet Estimate Normal Polychromasia Hypochromasia (manual) Poikilocytosis (manual Anisocytosis (manual) Slight Ovalocytes Tarah Cells Schistocytes PT INR APTT D-Dimer, Quantitative Puncture Site pCO2 pO2 20 L HCO3 ABG pH ABG Total CO2 ABG O2 Saturation ABG Base Excess Jason Test ABG Potassium VBG pH 7.44 H VBG pCO2 30 L VBG HCO3 21.1 VBG Total CO2 21.3 L VBG O2 Sat (Calc) 34.8 L VBG Base Excess -2.7 L VBG Potassium 2.5 L* A-a O2 Difference Respiratory Index Sodium 157.0 H 157 H Chloride 122.0 H 117 H Glucose 106 H Lactate 2.0 Vent Mode Mechanical Rate FiO2 Inspiratory BiPAP Expiratory BiPAP Crit Value Called To Er nurse Crit Value Called By Ubaldo rt Crit Value Read Back Y Blood Gas Notified Time 2145 Potassium 3.5 L Carbon Dioxide 24 Anion Gap 20 BUN 73 H Creatinine 1.9 H Est GFR ( Amer) 31 Est GFR (Non-Af Amer) 25 Random Glucose 133 H Calcium 9.4 Phosphorus Magnesium Total Bilirubin 0.8 AST 38 H D ALT 43 Alkaline Phosphatase 97 Total Creatine Kinase 28 L CK-MB (Mass) 0.78 Troponin I 0.2250 H* NT-Pro-B Natriuret Pep 936 H Total Protein 6.4 Albumin 3.4 L Globulin 3.0 Albumin/Globulin Ratio 1.1 Arterial Blood Potassium Venous Blood Potassium 2.5 L* Urine Color Urine Clarity Urine pH Ur Specific [place] Urine Protein Urine Glucose (UA) Urine Ketones Urine Blood Urine Nitrate Urine Bilirubin Urine Urobilinogen Ur Leukocyte Esterase Urine WBC (Auto) Urine RBC (Auto) Ur Squamous Epith Cells Urine Bacteria Hyaline Casts 12/15/17 12/15/17 12/15/17 21:43 22:06 23:06 WBC RBC Hgb Hct MCV MCH MCHC RDW Plt Count MPV Neut % (Auto) Lymph % (Auto) [place] % (Auto) Eos % (Auto) Baso % (Auto) Neut # (Auto) Lymph # (Auto) Hale # (Auto) Eos # (Auto) Baso # (Auto) Neutrophils % (Manual) Lymphocytes % (Manual) Monocytes % (Manual) Platelet Estimate Polychromasia Hypochromasia (manual) Poikilocytosis (manual Anisocytosis (manual) Ovalocytes Tarah Cells Schistocytes PT 14.9 H INR 1.4 APTT 28 D-Dimer, Quantitative 567 H Puncture Site Rba pCO2 31 L pO2 419 H HCO3 22.9 ABG pH 7.43 ABG Total CO2 21.6 L ABG O2 Saturation 100.7 H ABG Base Excess -2.7 L Jason Test Na ABG Potassium 2.5 L* VBG pH VBG pCO2 VBG HCO3 VBG Total CO2 VBG O2 Sat (Calc) VBG Base Excess VBG Potassium A-a O2 Difference 255.0 Respiratory Index 0.6 Sodium 155.0 H Chloride 128.0 H Glucose 119 H Lactate 1.2 Vent Mode Bipap Mechanical Rate 12 FiO2 100.0 Inspiratory BiPAP 10 Expiratory BiPAP 5 Crit Value Called To Dr. aranda Crit Value Called By Ubaldo rt Crit Value Read Back Y Blood Gas Notified Time 2218 Potassium Carbon Dioxide Anion Gap BUN Creatinine Est GFR ( Amer) Est GFR (Non-Af Amer) Random Glucose Calcium Phosphorus Magnesium 2.6 H Total Bilirubin AST ALT Alkaline Phosphatase Total Creatine Kinase CK-MB (Mass) Troponin I NT-Pro-B Natriuret Pep Total Protein Albumin Globulin Albumin/Globulin Ratio Arterial Blood Potassium 2.5 L* Venous Blood Potassium Urine Color Urine Clarity Urine pH Ur Specific [place] Urine Protein Urine Glucose (UA) Urine Ketones Urine Blood Urine Nitrate Urine Bilirubin Urine Urobilinogen Ur Leukocyte Esterase Urine WBC (Auto) Urine RBC (Auto) Ur Squamous Epith Cells Urine Bacteria Hyaline Casts 12/16/17 12/16/17 12/16/17 07:08 07:35 07:51 WBC RBC Hgb Hct MCV MCH MCHC RDW Plt Count MPV Neut % (Auto) Lymph % (Auto) Hale % (Auto) Eos % (Auto) Baso % (Auto) Neut # (Auto) Lymph # (Auto) Hale # (Auto) Eos # (Auto) Baso # (Auto) Neutrophils % (Manual) Lymphocytes % (Manual) Monocytes % (Manual) Platelet Estimate Polychromasia Hypochromasia (manual) Poikilocytosis (manual Anisocytosis (manual) Ovalocytes [place] Cells Schistocytes PT INR APTT D-Dimer, Quantitative Puncture Site Rr pCO2 28 L pO2 157 H HCO3 21.2 ABG pH 7.42 ABG Total CO2 19.1 L ABG O2 Saturation 99.9 H ABG Base Excess -4.9 L Jason Test Pos ABG Potassium 3.0 L VBG pH VBG pCO2 VBG HCO3 VBG Total CO2 VBG O2 Sat (Calc) VBG Base Excess VBG Potassium A-a O2 Difference 165.0 Respiratory Index 1.1 Sodium 154.0 H Chloride 126.0 H Glucose 115 H Lactate 1.0 Vent Mode Bipap Mechanical Rate FiO2 50.0 Inspiratory BiPAP 10 Expiratory BiPAP 5 Crit Value Called To Crit Value Called By Crit Value Read Back Blood Gas Notified Time Potassium Carbon Dioxide Anion Gap BUN Creatinine Est GFR ( Amer) Est GFR (Non-Af Amer) Random Glucose Calcium Phosphorus Magnesium Total Bilirubin AST ALT Alkaline Phosphatase Total Creatine Kinase CK-MB (Mass) Troponin I NT-Pro-B Natriuret Pep 586 Total Protein Albumin Globulin Albumin/Globulin Ratio Arterial Blood Potassium 3.0 L Venous Blood Potassium Urine Color Yellow Urine Clarity Hazy Urine pH 5.0 Ur Specific [place] 1.019 Urine Protein Negative Urine Glucose (UA) Normal Urine Ketones Negative Urine Blood Negative Urine Nitrate Negative Urine Bilirubin Negative Urine Urobilinogen Normal Ur Leukocyte Esterase Neg Urine WBC (Auto) 2 Urine RBC (Auto) 1 Ur Squamous Epith Cells 1 Urine Bacteria Rare Hyaline Casts 0-2 12/16/17 12/16/17 07:51 07:51 WBC 15.7 H RBC 3.96 Hgb 12.0 Hct 37.8 MCV 95.3 D MCH 30.2 MCHC 31.6 L RDW 17.9 H Plt Count 187 MPV 8.9 Neut % (Auto) 95.8 H Lymph % (Auto) 1.9 L Hale % (Auto) 2.3 Eos % (Auto) 0.0 Baso % (Auto) 0.0 Neut # (Auto) 15.0 H Lymph # (Auto) 0.3 L Hale # (Auto) 0.4 Eos # (Auto) 0.0 Baso # (Auto) 0.0 Neutrophils % (Manual) 96 H Lymphocytes % (Manual) 2 L Monocytes % (Manual) 2 Platelet Estimate Normal Polychromasia Slight Hypochromasia (manual) Slight Poikilocytosis (manual Moderate Anisocytosis (manual) Moderate Ovalocytes Slight [place] Cells Moderate Schistocytes Slight PT INR APTT D-Dimer, Quantitative Puncture Site pCO2 pO2 HCO3 ABG pH ABG Total CO2 ABG O2 Saturation ABG Base Excess Jason Test ABG Potassium VBG pH VBG pCO2 VBG HCO3 VBG Total CO2 VBG O2 Sat (Calc) VBG Base Excess VBG Potassium A-a O2 Difference Respiratory Index Sodium 158 H Chloride 125 H Glucose Lactate Vent Mode Mechanical Rate FiO2 Inspiratory BiPAP Expiratory BiPAP Crit Value Called To Crit Value Called By Crit Value Read Back Blood Gas Notified Time Potassium 4.0 Carbon Dioxide 16 L Anion Gap 21 H BUN 51 H Creatinine 1.3 H Est GFR ( Amer) 47 Est GFR (Non-Af Amer) 39 Random Glucose 102 Calcium 8.2 L Phosphorus 3.3 Magnesium 2.1 Total Bilirubin 0.5 AST 67 H D ALT 50 Alkaline Phosphatase 84 Total Creatine Kinase CK-MB (Mass) Troponin I 0.1300 H* NT-Pro-B Natriuret Pep Total Protein 5.9 L Albumin 3.0 L Globulin 2.9 Albumin/Globulin Ratio 1.0 Arterial Blood Potassium Venous Blood Potassium Urine Color Urine Clarity Urine pH Ur Specific [place] Urine Protein Urine Glucose (UA) Urine Ketones Urine Blood Urine Nitrate Urine Bilirubin Urine Urobilinogen Ur Leukocyte Esterase Urine WBC (Auto) Urine RBC (Auto) Ur Squamous Epith Cells Urine Bacteria Hyaline Casts EKG/Cardiology Studies: Cardiology / EKG Studies 12/15/17 21:16 EKG [ELECTROCARDIOGRAM] Stat Comment: Mode Of Transportation: BED Reason For Exam: cp 12/15/17 23:04 EKG [ELECTROCARDIOGRAM] Stat Comment: Mode Of Transportation: Reason For Exam: tachycardia PERFORMING PHYSICIAN/PROVIDER:: Zak Aranda 12/16/17 07:24 EKG [ELECTROCARDIOGRAM] Routine Comment: Mode Of Transportation: PORTABLE Reason For Exam: afib to rsr 12/16/17 21:56 EKG [ELECTROCARDIOGRAM] Stat Comment: Mode Of Transportation: BED Reason For Exam: cp Review of Systems - Review of Systems Systems not reviewed;Unavailable: Respiratory Distress Critical Care Progress Note - Nutrition Nutrition: Nutrition Category Date Time Status Heart Healthy Diet [DIET] Diets 12/16/17 Dinner Active Assessment/Plan (1) C. difficile colitis Current Visit: Yes Status: Acute Comment: Start vancomycin Continue IV fluids Monitor ABG Bicarbonate drip Continue nebulized treatment Steroids Continue BiPAP (2) COPD exacerbation Current Visit: No Status: Acute Comment: (3) Dehydration Current Visit: Yes Status: Acute
--- NOTE | 2017-12-16 13:23 | RAD ---
HISTORY: chest pain COMPARISON: Comparison chest 11/24/2017. . FINDINGS: LUNGS: Hyperinflation consistent with underlying emphysema. . Patchy infiltrate changes in the medial aspect right lower lobe. . PLEURA: No significant pleural effusion identified, no pneumothorax apparent. CARDIOVASCULAR: Normal. OSSEOUS STRUCTURES: No significant abnormalities. VISUALIZED UPPER ABDOMEN: Normal. OTHER FINDINGS: None. IMPRESSION: Hyperinflation consistent with underlying emphysema. Patchy infiltrate medial aspect right lower lobe
[2017-12-16] MEDS: metroNIDAZOLE IV 500 mg/100 ml 500 MG/100 ML BAG IVPB SCH ×2 (14:04→21:45)
[2017-12-16] MEDS: Sodium Bicarbonate 8.4% 100 MEQ in Dextrose 5% In Water 1,000 ML IV SCH (14:04)
[2017-12-16] MEDS: Vancomycin 125 MG/5 ML SOLN (ORAL/RECTAL) PO SCH ×3 (14:04→21:44)
[2017-12-16] MEDS ORDERED: Verapamil 40 MG in Sodium Chloride 0.9% 84 ML IV SCH (14:30)
[2017-12-16] MEDS ORDERED: SODIUM CHLORIDE 0.9% IV PRN (14:38)
[2017-12-16] MEDS ORDERED: VERAPAMIL IV PRN (14:38)
--- NOTE | 2017-12-16 17:32 | CT ---
PROCEDURE: CT Chest without contrast HISTORY: Evaluate aspiration COMPARISON: None. TECHNIQUE: Contiguous axial images were obtained through the chest without intravenous contrast enhancement. Sagittal and coronal reconstructions were performed. Radiation dose (DLP): 154.68 mGy-cm. This CT exam was performed using one or more of the following dose reduction techniques: Automated exposure control, adjustment of the mA and/or kV according to patient size, and/or use of iterative reconstruction technique. FINDINGS: LUNGS: Centrilobular emphysematous changes with upper lobe predominance. Questionable of mucous debris within right lower lobe bronchus. Possibility of a endobronchial mass not excluded. There is some localized atelectasis distal to this within the medial lung base presumably as a result. MEDIASTINUM: Heart size normal. No significant pericardial effusion. Ascending thoracic aorta measures approximately 3.1 cm and descending thoracic aorta measures approximately 2.8 cm. Note that the distal descending aorta appears measures approximately 3.03 mm. Pulmonary trunk is dilated measuring approximately 3.4 cm; rule out pulmonary arterial hypertension. There are diffuse small nonspecific mediastinal lymph nodes. There are several of calcified left hilar lymph nodes again consistent with prior exposure to granulomatous disease process. PLEURA: No pleural fluid. No pneumothorax. BONES: Mild multilevel degenerative spondylosis of the thoracic spine. Minor anterior wedging of several thoracic segments with slight increase kyphosis. Note made of at least 2 small sclerotic foci within 2 left-sided ribs likely representing bone islands or osteomas. UPPER ABDOMEN: Edematous appearance of the stomach wall. Rule out gastritis or other intrinsic/invasive wall lesion. Followup endoscopy recommended. Scattered splenic calcifications consistent with prior exposure to granulomatous disease process. There is a large lipoma within the right posterior lateral soft tissues of the thorax extending into the lower posterolateral upper abdomen incompletely visualized. OTHER FINDINGS: There is a ill-defined incompletely visualized left breast mass. Recommend followup mammotomy to exclude breast carcinoma. IMPRESSION: Right lower lobe infiltrate. Debris present within the right lower lobe bronchus possibly representing mucous however endoluminal mass not excluded. Centrilobular emphysematous changes upper lobe predominance. Dilatation pulmonary trunk; rule out underlying pulmonary arterial hypertension. Calcified left hilar lymph nodes head splenic calcifications or which suggest prior exposure to granulomatous disease process. Large right posterolateral thorax and upper abdominal subcutaneous lipoma. Left breast mass as above. Recommend followup mammography to exclude breast carcinoma. Edematous appearance of the stomach wall. Rule out gastritis or other intrinsic/invasive wall lesion. Followup endoscopy recommended.
[2017-12-16] MEDS ORDERED: diltiaZEM 120 mg/24 Hours CD Cap PO SCH (22:00)
--- NOTE | 2017-12-16 23:56 | CP.PCM.PN ---
Subjective - Date & Time of Evaluation Date of Evaluation: 12/16/17 Time of Evaluation: 18:45 - Subjective Subjective: Pt seen and examined at bedside History of Present Illness: 82 y/o female with pmx of COPD with multiple admissions to [facility] with c/o SOB, SVT and fatigue. Patient was seen and examiend at bedside. Patient (+)diarrhea, (+)SOB, (++ palpitations, denies any chest pain, denies any abdominal pain. Pmx: COPD Psurg hs: reviewed and unknown allergeis: NKDA SH: no active smoking Objective - Vital Signs/Intake and Output Vital Signs (last 24 hours): Temp Pulse Resp BP Pulse Ox 97.1 F L 90 19 109/58 L 100 12/16/17 20:00 12/16/17 23:34 12/16/17 23:00 12/16/17 23:00 12/16/17 23:00 Intake and Output: 12/16/17 12/17/17 18:59 06:59 Intake Total 1525.0 500 Output Total 352 140 Balance 1173.0 360 - Medications Medications: Current Medications Albuterol/Ipratropium (Duoneb 3 Mg/0.5 Mg (3 Ml) Ud) 3 ml INH RQ6 [facility] Last Admin: 12/16/17 19:11 Dose: 3 ml Aspirin (Aspirin Chewable) 81 mg PO DAILY [facility] Last Admin: 12/16/17 09:59 Dose: 81 mg Cilostazol (Pletal) 100 mg PO DAILY [facility] Last Admin: 12/16/17 10:53 Dose: 100 mg Diltiazem HCl (Cardizem) 30 mg NG Q6H [facility] Diphenoxylate HCl/Atropine (Lomotil 0.025-2.5 Mg Tablet) 1 tab PO Q6H PRN PRN Reason: Diarrhea Enoxaparin Sodium (Lovenox) 30 mg SC DAILY [facility] Last Admin: 12/16/17 09:59 Dose: 30 mg Gabapentin (Neurontin) 100 mg PO TID [facility] Last Admin: 12/16/17 17:28 Dose: 100 mg Guaifenesin (Robitussin) 200 mg PO Q4H PRN PRN Reason: Cough and congestion Piperacillin Sod/Tazobactam (Sod 3.375 gm/ Sodium Chloride) 100 mls @ 200 mls/ hr IVPB Q8H [facility] PRN Reason: Protocol Last Admin: 12/16/17 16:27 Dose: 200 mls/hr Sodium Bicarbonate 100 meq/ (Dextrose) 1,100 mls @ 75 mls/hr IV .[id number] [facility] Last Admin: 12/16/17 14:04 Dose: 75 mls/hr Metronidazole (Flagyl) 500 mg in 100 mls @ 100 mls/hr IVPB Q8 [facility] PRN Reason: Protocol Last Admin: 12/16/17 21:45 Dose: 100 mls/hr Verapamil HCl 80 mg/ Sodium (Chloride) 200 mls @ 25 mls/hr IV .Q8H PRN; Protocol; 10 MG/HR PRN Reason: titrate to md order Last Admin: 12/16/17 15:22 Dose: 25 mls/hr Levothyroxine Sodium (Synthroid) 100 mcg PO 629 [facility] Last Admin: 12/16/17 07:00 Dose: 100 mcg Methylprednisolone (Solu-Medrol) 40 mg IV Q12 [facility] Last Admin: 12/16/17 21:44 Dose: 40 mg Mirtazapine (Remeron) 7.5 mg PO HS [facility] Last Admin: 12/16/17 21:43 Dose: 7.5 mg Pantoprazole Sodium (Protonix Ec Tab) 40 mg PO DAILY [facility] Last Admin: 12/16/17 09:59 Dose: 40 mg Roflumilast (Daliresp) 500 mcg PO DAILY [facility] Last Admin: 12/16/17 14:03 Dose: 500 mcg Sucralfate (Carafate Oral Susp) 1 gm PO ACBHS [facility] Last Admin: 12/16/17 21:43 Dose: 1 gm Vancomycin HCl (Vancocin (Oral Or Rectal Use)) 125 mg PO QID [facility] PRN Reason: Protocol Last Admin: 12/16/17 21:44 Dose: 125 mg Vitamin A (Vitamin A & D Oint Ud Foilpak) 1 ea EXT Q8 PRN PRN Reason: Dry SKIN Last Admin: 12/16/17 10:00 Dose: 1 ea - Labs Labs: 12/16/17 07:51 12/16/17 07:51 PT 14.9 SECONDS (9.7-12.2) H 12/15/17 21:43 INR 1.4 06/29/18 21:43 APTT 28 SECONDS (21-34) 12/15/17 21:43 - Constitutional Appears: Chronically Ill - Head Exam Head Exam: ATRAUMATIC, NORMAL INSPECTION, NORMOCEPHALIC - Eye Exam Eye Exam: EOMI, Normal appearance, PERRL Pupil Exam: NORMAL ACCOMODATION, PERRL - Respiratory Exam Respiratory Exam: Decreased Breath Sounds, Rales, Rhonchi - Cardiovascular Exam Cardiovascular Exam: REGULAR RHYTHM, +S1, +S2. absent: Murmur - GI/Abdominal Exam GI & Abdominal Exam: Soft, Normal Bowel Sounds. absent: Tenderness - Rectal Exam Rectal Exam: Deferred Assessment and Plan (1) C. difficile colitis Status: Acute (2) Dehydration Status: Acute (3) Septicemia Status: Acute (4) Anxiety Status: Acute (5) COPD (chronic obstructive pulmonary disease) Status: Acute (6) Depressed Status: Acute (7) Diarrhea Status: Acute (8) HTN (hypertension) Status: Acute
--- NOTE | 2017-12-17 01:04 | CON ---
DATE: 12/16/2017 CARDIOLOGY CONSULTATION REASON FOR CONSULTATION: Rapid atrial fibrillation. HISTORY OF PRESENT ILLNESS: The patient is an 82 years old female who is a intermediate resident, has dementia who is admitted because of abnormal labs. Apparently, the patient was reported to have rapid atrial fibrillation ablation; however, my own review of the initial cardiogram revealed sinus tachycardia with frequent APCs. There is no reported hypotension or ventricular tachycardia in the ICU. The patient is nonverbal and gives no reliable answers. SOCIAL HISTORY: The patient is a intermediate resident. MEDICATIONS: Aspirin 81 mg once a day, Carafate 1 gm twice a day, Cardizem CD 120 mg once a day, albuterol inhaler every 6 hours, Flagyl 500 mg intravenously every 8 hours, Lovenox 30 mg subcutaneously once a day, gabapentin 100 mg t.i.d., Zosyn 3.375 gm intravenously every 8 hours, Pletal 100 mg daily, Remeron 7.5 mg at bedtime, Robitussin 200 mg every 6 hours p.r.n., Solu-Medrol 40 mg intravenously every 12 hours, Synthroid 100 mcg orally daily, vancomycin 125 mg orally four times a day, verapamil 40 mg intravenously every 8 hours p.r.n. PAST MEDICAL HISTORY: COPD, peripheral vascular disease, dementia. REVIEW OF SYSTEMS: No reported seizures or hypotension, no reported ventricular arrhythmia, and no reported vomiting or diarrhea. PHYSICAL EXAMINATION: GENERAL: The patient is an elderly female who does not appear to be in acute distress. VITAL SIGNS: Blood pressure 100/79, heart rate 114, temperature 97.5. respirations 44. HEENT: Normocephalic. CHEST: Diffuse bilateral rhonchi. HEART: S1 and S2, irregular. ABDOMEN: Soft. EXTREMITIES: Significant muscle wasting. LABORATORY DATA: Today's SMA-7: Sodium 158, potassium 4, chloride 125, CO2 of 16, glucose 102, BUN 51, creatinine 1.3. Yesterday's BUN and creatinine are 73 and 1.9 respectively. Troponin 0.225 followed by 0.13. Magnesium is 2.6. INR is 1.4. D-dimer is 567. CBC on admission: White count 17.6, hemoglobin and hematocrit 12.8 and 39.8, platelet count 164,000. Stool for C. difficile was positive. Head CT scan without contrast, no acute intracranial hemorrhage. Mild chronic white matter and basal nuclei ischemic changes. Moderate atrophy. Chest x-ray revealed vertical heart COPD picture, consider right lower lobe infiltrate. EKG revealed sinus tachycardia with frequent APCs. Possibility of multifocal atrial tachycardia exists. Possible lateral infarct and possible inferoposterior infarct of undetermined age. Echocardiographic study performed last month revealed ejection fraction estimated 75%, severe left ventricular diastolic dysfunction, and moderate pulmonary hypertension. ASSESSMENT: 1. Exacerbation of chronic obstructive lung disease. 2. Borderline troponin elevation, rule out non ST-elevation myocardial infarction. 3. Dehydration, hypernatremia, and prerenal azotemia. 4. Rule out underlying sepsis. 5. Secondary pulmonary hypertension. 6. Hypothyroidism. 7. Multifocal atrial tachycardia. 8. Peripheral vascular disease. RECOMMENDATIONS: Continue aspirin 81 mg once a day, Cardizem CD 120 mg daily, Flagyl 500 mg intravenously every 8 hours, Pletal 100 mg once a day, Zosyn 3.375 gm intravenously every 8 hours, Solu-Medrol 40 mg intravenously every 12 hours, Synthroid 100 mcg once a day, vancomycin 40 mg intravenously every 8 hours. Tru Vinson MD
[2017-12-17] MEDS: Albuterol-Ipratrop 3 mg / 0.5 (3 ml) UD INH SCH ×4 (01:16→20:07)
[2017-12-17] MEDS: Levothyroxine 100 MCG TAB PO SCH (05:54)
[2017-12-17] MEDS: metroNIDAZOLE IV 500 mg/100 ml 500 MG/100 ML BAG IVPB SCH ×3 (05:54→21:22)
[2017-12-17] MEDS: Sodium Bicarbonate 8.4% 100 MEQ in Dextrose 5% In Water 1,000 ML IV SCH (05:55)
[2017-12-17] MEDS: Sucralfate 1 gm/10 ml Oral Susp UD PO SCH ×2 (07:50→21:22)
[2017-12-17] MEDS: Piperacillin/Tazobact 3.375 GM in Sodium Chloride 100 ML IVPB SCH ×2 (08:00)
[2017-12-17 08:52] LABS: BLOOD UREA NITROGEN 29 mg/dL (7-17); CALCIUM 7.8 mg/dl (8.6-10.4); GFR AFRICAN-AMERICAN > 60; GFR NON-AFRICAN AMERICAN 60
[2017-12-17 08:59] LABS: BASO % 0.2 % (0.0-2.0); LYMPH # 0.3 K/uL (1.0-4.3); LYMPH % 2.2 % (20.0-40.0); MEAN CORPUSCULAR HGB CONC 31.4 g/dL (33.0-37.0); MEAN PLATELET VOLUME 9.2 fL (7.2-11.7); MONO # 0.4 K/uL (0.0-0.8); MONO % 2.7 % (0.0-10.0); NEUT # 13.6 K/uL (1.8-7.0); NEUT % 94.9 % (50.0-75.0); NRBC % 0.4 % (0.0-2.0); PLATELET COUNT 186 K/uL (130-400); RBC 3.42 Mil/uL (3.80-5.20); RED CELL DISTRIBUTION WIDTH 17.4 % (11.5-14.5); WHITE BLOOD COUNT 14.3 K/uL (4.8-10.8)
[2017-12-17 09:08] LABS: HEMOGLOBIN 9.9 g/dL (11.0-16.0); MEAN CELL VOLUME 92.2 fL (81.0-99.0)
[2017-12-17] MEDS ORDERED: Potassium Chloride 20 mEq/15 ml LIQ UD PO ONE ×2 (09:30→13:30)
[2017-12-17] MEDS: Potassium Chl 40 mEq in D5-1/2 1,000 ML IV SCH ×2 (10:27→21:22)
[2017-12-17] MEDS: Enoxaparin 30 mg Syringe SC SCH (10:28)
[2017-12-17] MEDS: Cilostazol 100 mg Tab UD PO SCH (10:30)
[2017-12-17] MEDS: Pantoprazole 40 mg EC Tab PO SCH (10:30)
[2017-12-17] MEDS: MethylPREDNISolone 40 mg Vial IV SCH ×2 (10:31→21:23)
[2017-12-17] MEDS: Vancomycin 125 MG/5 ML SOLN (ORAL/RECTAL) PO SCH ×4 (10:41→21:21)
[2017-12-17 10:51] LABS: LYMPHOCYTE 2 % (20-40); MONOCYTE 2 % (0-10); NEUTROPHIL 96 % (50-75); PLATELET ESTIMATE NORMAL (NORMAL); TOTAL CELLS COUNTED 100
[2017-12-17 10:52] LABS: ANISOCYTOSIS SLIGHT; HYPOCHROMIC SLIGHT
--- NOTE | 2017-12-17 15:39 | CP.CCUPN ---
CCU Subjective - Physician Review Events Since Last Encounter (Free Text): 12/17/17 15:37 patient seen and examined On BiPAP Afebrile Still having diarrhea Being treated for C. difficile colitis Heart rate controlled CCU Objective - Vital Signs / Intake & Output Vital Signs (Last 4 hours): Vital Signs Temp Pulse Resp BP Pulse Ox 12/17/17 14:00 92 H 46 H 97/66 L 12/17/17 13:33 128 H 12/17/17 13:00 133 H 35 H 99/66 L 12/17/17 12:00 97.6 F 107 H 40 H 108/66 95 12/17/17 11:45 93 H Intake and Output (Last 8hrs): Intake & Output 12/17/17 12/17/17 12/17/17 06:59 14:59 22:59 Intake Total 925 925 Output Total 670 280 Balance 255 645 Weight 103 lb 9.876 oz Intake: Intake, IV Amount 825 925 left forearm 200 200 rt ac #1 port 25 rt. ac #2 port 600 725 Other 100 Output: Urine 270 280 Urethral (Ramos) 270 280 Stool 400 - Physical Exam Head: Positive for: Atraumatic, Normocephalic Conjunctiva: Positive for: Normal Mouth: Positive for: Dry Neck: Positive for: Normal Range of Motion Respiratory/Chest: Positive for: Clear to Auscultation, Decreased Breath Sounds Cardiovascular: Positive for: Regular Rate and Rhythm Abdomen: Positive for: Normal Bowel Sounds Upper Extremity: Positive for: Normal Inspection Lower Extremity: Positive for: Normal Inspection Skin: Positive for: Warm Psychiatric: Positive for: Lethargic - Medications Active Medications: Active Medications Generic Name Dose Route Start Last Admin Trade Name Freq PRN Reason Stop Dose Admin Albuterol/Ipratropium 3 ml 12/16/17 02:00 12/17/17 13:32 Duoneb 3 Mg/0.5 Mg (3 Ml) Ud INH Not Given RQ6 [facility] Aspirin 81 mg 12/16/17 10:00 12/17/17 10:28 Aspirin Chewable PO 81 mg DAILY [facility] Administration Cilostazol 100 mg 12/16/17 10:00 12/17/17 10:30 Pletal PO 100 mg DAILY [facility] Administration Diltiazem HCl 30 mg 12/17/17 00:00 12/17/17 11:26 Cardizem NG 30 mg Q6H [facility] Administration Enoxaparin Sodium 30 mg 12/16/17 10:00 12/17/17 10:28 Lovenox SC 30 mg DAILY [facility] Administration Gabapentin 100 mg 12/16/17 10:00 12/17/17 13:04 Neurontin PO 100 mg TID [facility] Administration Guaifenesin 200 mg 12/16/17 00:33 Robitussin PO Q4H PRN Cough and congestion Metronidazole 500 mg in 100 mls @ 100 mls/hr 12/16/17 14:00 12/17/17 13:03 Flagyl IVPB 100 mls/hr Q8 [facility] Administration Protocol Potassium Chloride/Dextrose/Sod Cl 1,000 mls @ 100 mls/hr 12/17/17 10:00 07/06 10:27 Potassium Chl 40 Meq In D5-1/2ns IV 100 mls/hr .Q10H [facility] Administration Levothyroxine Sodium 100 mcg 12/16/17 06:30 12/17/17 05:54 Synthroid PO 100 mcg 0630 [facility] Administration Methylprednisolone 40 mg 12/16/17 00:45 12/17/17 10:31 Solu-Medrol IV 40 mg Q12 [facility] Administration Mirtazapine 7.5 mg 12/16/17 22:00 12/16/17 21:43 Remeron PO 7.5 mg HS [facility] Administration Pantoprazole Sodium 40 mg 12/16/17 10:00 12/17/17 10:30 Protonix Ec Tab PO 40 mg DAILY [facility] Administration Rosuvastatin Calcium 10 mg 12/17/17 22:00 Crestor PO HS [facility] Sucralfate 1 gm 12/16/17 07:30 12/17/17 07:50 Carafate Oral Susp PO 1 gm ACBHS [facility] Administration Vancomycin HCl 125 mg 12/16/17 14:00 12/17/17 13:03 Vancocin (Oral Or Rectal Use) PO 125 mg QID [facility] Administration Protocol Vitamin A 1 ea 12/16/17 00:33 12/16/17 10:00 Vitamin A & D Oint Ud Foilpak EXT 1 ea Q8 PRN Administration Dry SKIN - Patient Studies Lab Studies: Microbiology Studies 12/16/17 06:37 MRSA Culture (Admit) - Final Nose MRSA NOT DETECTED 12/16/17 07:08 Urine Culture - Preliminary Urine,Catheterized Gram Positive Cocci 12/16/17 08:03 Blood Culture - Preliminary Blood-Venous NO GROWTH AFTER 24 HOURS 12/16/17 08:03 Blood Culture - Preliminary Blood-Venous NO GROWTH AFTER 24 HOURS Lab Studies 12/17/17 12/17/17 Range/Units 08:38 08:38 WBC 14.3 H (4.8-10.8) K/uL RBC 3.42 L (3.80-5.20) Mil/uL Hgb 9.9 L D (11.0-16.0) g/dL Hct 31.5 L (34.0-47.0) % MCV 92.2 D (81.0-99.0) fL MCH 29.0 (27.0-31.0) pg MCHC 31.4 L (33.0-37.0) g/dL RDW 17.4 H (11.5-14.5) % Plt Count 186 (130-400) K/uL MPV 9.2 (7.2-11.7) fL Neut % (Auto) 94.9 H (50.0-75.0) % Lymph % (Auto) 2.2 L (20.0-40.0) % Cocke % (Auto) 2.7 (0.0-10.0) % Eos % (Auto) 0.0 (0.0-4.0) % Baso % (Auto) 0.2 (0.0-2.0) % Neut # (Auto) 13.6 H (1.8-7.0) K/uL Lymph # (Auto) 0.3 L (1.0-4.3) K/uL Cocke # (Auto) 0.4 (0.0-0.8) K/uL Eos # (Auto) 0.0 (0.0-0.7) K/uL Baso # (Auto) 0.0 (0.0-0.2) K/uL Neutrophils % (Manual) 96 H (50-75) % Lymphocytes % (Manual) 2 L (20-40) % Monocytes % (Manual) 2 (0-10) % Platelet Estimate Normal (NORMAL) Hypochromasia (manual) Slight Anisocytosis (manual) Slight Sodium 151 H (132-148) mmol/L Potassium 2.9 L (3.6-5.2) mmol/L Chloride 115 H (98-107) mmol/L Carbon Dioxide 26 (22-30) mmol/L Anion Gap 13 (10-20) BUN 29 H (7-17) mg/dL Creatinine 0.9 (0.7-1.2) mg/dL Est GFR ( Amer) > 60 Est GFR (Non-Af Amer) 60 Random Glucose 111 H (65-105) mg/dL Calcium 7.8 L (8.6-10.4) mg/dl Phosphorus 2.8 (2.5-4.5) mg/dL Magnesium 1.8 (1.6-2.3) mg/dL Laboratory Results - last 24 hr 12/17/17 12/17/17 08:38 08:38 WBC 14.3 H RBC 3.42 L Hgb 9.9 L D Hct 31.5 L MCV 92.2 D MCH 29.0 MCHC 31.4 L RDW 17.4 H Plt Count 186 MPV 9.2 Neut % (Auto) 94.9 H Lymph % (Auto) 2.2 L Cocke % (Auto) 2.7 Eos % (Auto) 0.0 Baso % (Auto) 0.2 Neut # (Auto) 13.6 H Lymph # (Auto) 0.3 L Cocke # (Auto) 0.4 Eos # (Auto) 0.0 Baso # (Auto) 0.0 Neutrophils % (Manual) 96 H Lymphocytes % (Manual) 2 L Monocytes % (Manual) 2 Platelet Estimate Normal Hypochromasia (manual) Slight Anisocytosis (manual) Slight Sodium 151 H Potassium 2.9 L Chloride 115 H Carbon Dioxide 26 Anion Gap 13 BUN 29 H Creatinine 0.9 Est GFR ( Amer) > 60 Est GFR (Non-Af Amer) 60 Random Glucose 111 H Calcium 7.8 L Phosphorus 2.8 Magnesium 1.8 EKG/Cardiology Studies: Cardiology / EKG Studies 12/16/17 21:56 EKG [ELECTROCARDIOGRAM] Stat Comment: Mode Of Transportation: BED Reason For Exam: cp Review of Systems - Review of Systems Systems not reviewed;Unavailable: Respiratory Distress Critical Care Progress Note - Nutrition Nutrition: Nutrition Category Date Time Status Heart Healthy Diet [DIET] Diets 12/16/17 Dinner Active Assessment/Plan (1) C. difficile colitis Current Visit: Yes Status: Acute Comment: Continue IV antibiotics Continue IV fluids/ potassium supplement discontinue Bicarbonate drip Continue nebulized treatment Steroids Continue BiPAP Cardizem (2) COPD exacerbation Current Visit: No Status: Acute Comment: (3) Dehydration Current Visit: Yes Status: Acute
--- NOTE | 2017-12-17 19:31 | PN ---
DATE: 12/17/2017 SUBJECTIVE: The patient is more awake today, but she is nonverbal. The patient's son is at the bedside. The patient's rhythm is sinus tachycardia with frequent APCs and periods of atrial tachycardia and multifocal atrial tachycardia. PHYSICAL EXAMINATION: VITAL SIGNS: Blood pressure is 99/56, heart rate 133, respirations 40, temperature 97.6. HEENT: Pale conjunctivae. CHEST: Bilateral rhonchi. HEART: S1 and S2 regular. ABDOMEN: Soft. EXTREMITIES: Significant muscle wasting. LABORATORY DATA: SMA-7: Sodium 151, potassium 2.9, chloride 115, CO2 of 26, glucose 111, BUN 29, creatinine 0.9, and troponin yesterday 0.13. Chest CT scan without contrast revealed large right posterolateral thorax and upper abdominal subcutaneous lipoma; left breast mass; edematous appearance of the stomach wall, rule out gastritis; centrilobular emphysematous changes with upper lobe predominance, questionable mucous debris within the right lower lobe bronchus; possibility of endobronchial mass not excluded; right lower infiltrate. ASSESSMENT: 1. Right lower lobe pneumonia. 2. Exacerbation of chronic obstructive lung disease. 3. Consider [id number] myocardial infarction. 4. Dehydration, hypernatremia, and prerenal azotemia are improving. 5. Hypothyroidism. 6. Multifocal atrial tachycardia. 7. Peripheral vascular disease. 8. Anemia. 9. Clostridium difficile colitis. RECOMMENDATIONS: Continue aspirin 81 mg once a day, Cardizem 30 mg every 6 hours via nasogastric tube, continue IV Flagyl 500 mg every 8 hours, Lovenox 30 mg subcutaneously once a day, and Pletal at 100 mg daily. Continue IV potassium chloride replacement. Continue Solu-Medrol 40 mg intravenously every 12 hours, Synthroid 100 mcg daily, and vancomycin 125 mg p.o. 4 times a day. Start Crestor at 10 mg daily via nasogastric tube. Tru Vinson MD
--- NOTE | 2017-12-18 03:20 | CP.PCM.PN ---
Subjective - Date & Time of Evaluation Date of Evaluation: 12/17/17 Time of Evaluation: 18:00 - Subjective Subjective: patient seen and examined,wbc coming down, she is in septicemia On BiPAP Afebrile Still having diarrhea Being treated for C. difficile colitis Heart rate controlled Objective - Vital Signs/Intake and Output Vital Signs (last 24 hours): Temp Pulse Resp BP Pulse Ox 97.7 F 68 16 115/71 100 12/18/17 00:00 12/18/17 02:31 12/18/17 01:00 12/18/17 01:00 12/18/17 01:00 Intake and Output: 12/17/17 12/18/17 18:59 06:59 Intake Total 1325 700 Output Total 1055 125 Balance 270 575 - Medications Medications: Current Medications Albuterol/Ipratropium (Duoneb 3 Mg/0.5 Mg (3 Ml) Ud) 3 ml INH RQ6 [facility] Last Admin: 12/17/17 20:07 Dose: 3 ml Aspirin (Aspirin Chewable) 81 mg PO DAILY [facility] Last Admin: 12/17/17 10:28 Dose: 81 mg Cilostazol (Pletal) 100 mg PO DAILY [facility] Last Admin: 12/17/17 10:30 Dose: 100 mg Diltiazem HCl (Cardizem) 30 mg NG Q6H [facility] Last Admin: 12/17/17 23:36 Dose: 30 mg Enoxaparin Sodium (Lovenox) 30 mg SC DAILY [facility] Last Admin: 12/17/17 10:28 Dose: 30 mg Gabapentin (Neurontin) 100 mg PO TID [facility] Last Admin: 12/17/17 17:33 Dose: 100 mg Guaifenesin (Robitussin) 200 mg PO Q4H PRN PRN Reason: Cough and congestion Metronidazole (Flagyl) 500 mg in 100 mls @ 100 mls/hr IVPB Q8 [facility] PRN Reason: Protocol Last Admin: 12/17/17 21:22 Dose: 100 mls/hr Potassium Chloride/Dextrose/Sod Cl (Potassium Chl 40 Meq In D5-1/2ns) 1,000 mls @ 100 mls/hr IV .Q10H [facility] Last Admin: 12/17/17 10:27 Dose: 100 mls/hr Levothyroxine Sodium (Synthroid) 100 mcg PO 0630 [facility] Last Admin: 12/17/17 05:54 Dose: 100 mcg Methylprednisolone (Solu-Medrol) 40 mg IV Q12 [facility] Last Admin: 12/17/17 21:23 Dose: 40 mg Mirtazapine (Remeron) 7.5 mg PO HS [facility] Last Admin: 12/17/17 21:21 Dose: 7.5 mg Pantoprazole Sodium (Protonix Ec Tab) 40 mg PO DAILY [facility] Last Admin: 12/17/17 10:30 Dose: 40 mg Rosuvastatin Calcium (Crestor) 10 mg PO HS [facility] Last Admin: 12/17/17 21:21 Dose: 10 mg Sucralfate (Carafate Oral Susp) 1 gm PO ACBHS [facility] Last Admin: 12/17/17 21:22 Dose: 1 gm Vancomycin HCl (Vancocin (Oral Or Rectal Use)) 125 mg PO QID [facility] PRN Reason: Protocol Last Admin: 12/17/17 21:21 Dose: 125 mg Vitamin A (Vitamin A & D Oint Ud Foilpak) 1 ea EXT Q8 PRN PRN Reason: Dry SKIN Last Admin: 12/16/17 10:00 Dose: 1 ea - Labs Labs: 12/17/17 08:38 12/17/17 08:38 PT 14.9 SECONDS (9.7-12.2) H 12/15/17 21:43 INR 1.4 12/15/17 21:43 APTT 28 SECONDS (21-34) 12/15/17 21:43 - Constitutional Appears: No Acute Distress - Head Exam Head Exam: ATRAUMATIC, NORMAL INSPECTION, NORMOCEPHALIC - Eye Exam Eye Exam: EOMI, Normal appearance, PERRL Pupil Exam: NORMAL ACCOMODATION, PERRL - Respiratory Exam Respiratory Exam: Clear to Ausculation Bilateral, NORMAL BREATHING PATTERN - Cardiovascular Exam Cardiovascular Exam: REGULAR RHYTHM, +S1, +S2. absent: Murmur - GI/Abdominal Exam GI & Abdominal Exam: Soft, Normal Bowel Sounds. absent: Tenderness - Rectal Exam Rectal Exam: Deferred Assessment and Plan (1) Septicemia Status: Acute (2) Dehydration Status: Acute (3) Anxiety Status: Acute (4) COPD (chronic obstructive pulmonary disease) Status: Acute (5) Depressed Status: Acute (6) Diarrhea Status: Acute (7) HTN (hypertension) Status: Acute
[2017-12-18] MEDS: Potassium Chl 40 mEq in D5-1/2 1,000 ML IV SCH ×3 (06:00→21:52)
[2017-12-18] MEDS: metroNIDAZOLE IV 500 mg/100 ml 500 MG/100 ML BAG IVPB SCH ×3 (06:01→21:27)
[2017-12-18] MEDS: Levothyroxine 100 MCG TAB PO SCH (06:01)
[2017-12-18 06:46] LABS: BASO % 0.1 % (0.0-2.0); HEMOGLOBIN 10.2 g/dL (11.0-16.0); LYMPH # 0.3 K/uL (1.0-4.3); LYMPH % 2.1 % (20.0-40.0); MEAN CELL VOLUME 93.5 fL (81.0-99.0); MEAN CORPUSCULAR HEMOGLOBIN 29.9 pg (27.0-31.0); MEAN PLATELET VOLUME 9.1 fL (7.2-11.7); MONO # 0.4 K/uL (0.0-0.8); MONO % 3.4 % (0.0-10.0); NEUT # 11.8 K/uL (1.8-7.0); NEUT % 94.4 % (50.0-75.0); NRBC % 0.6 % (0.0-2.0); PLATELET COUNT 223 K/uL (130-400); RBC 3.39 Mil/uL (3.80-5.20); RED CELL DISTRIBUTION WIDTH 17.1 % (11.5-14.5); WHITE BLOOD COUNT 12.5 K/uL (4.8-10.8)
[2017-12-18 07:00] LABS: ALBUMIN 2.5 g/dL (3.5-5.0); ALT/SGPT 48 U/L (9-52); AST/SGOT 26 U/L (14-36); BLOOD UREA NITROGEN 20 mg/dL (7-17); CALCIUM 8.5 mg/dl (8.6-10.4); GFR AFRICAN-AMERICAN > 60; GFR NON-AFRICAN AMERICAN > 60
[2017-12-18] MEDS: Albuterol-Ipratrop 3 mg / 0.5 (3 ml) UD INH SCH ×3 (07:40→19:53)
[2017-12-18] MEDS: Sucralfate 1 gm/10 ml Oral Susp UD PO SCH (08:17)
[2017-12-18 08:58] LABS: LYMPHOCYTE 1 % (20-40); MONOCYTE 2 % (0-10); NEUTROPHIL 97 % (50-75); TOTAL CELLS COUNTED 100
[2017-12-18 08:59] LABS: ANISOCYTOSIS SLIGHT; PLATELET ESTIMATE NORMAL (NORMAL)
[2017-12-18 09:00] LABS: HYPOCHROMIC SLIGHT; POLYCHROMIC SLIGHT
[2017-12-18 09:01] LABS: BURR CELLS SLIGHT
[2017-12-18] MEDS: Enoxaparin 30 mg Syringe SC SCH (09:50)
[2017-12-18] MEDS: MethylPREDNISolone 40 mg Vial IV SCH (09:51)
[2017-12-18] MEDS: Cilostazol 100 mg Tab UD PO SCH (09:51)
[2017-12-18] MEDS: Vancomycin 125 MG/5 ML SOLN (ORAL/RECTAL) PO SCH ×4 (09:52→21:30)
[2017-12-18] MEDS: Saccharomyces Boulardi 250 mg Cap PO SCH ×2 (09:54→17:59)
[2017-12-18] MEDS ORDERED: Azithromycin 500 MG in Sodium Chloride 0.9% 250 ML IVPB SCH (10:00)
--- NOTE | 2017-12-18 10:59 | CP.PCM.PN ---
Subjective - Date & Time of Evaluation Date of Evaluation: 12/18/17 Time of Evaluation: 10:56 - Subjective Subjective: events noted; on treatment for c.diff MAYUR resolved Na better at 151 UO better, still low anxious, mildly dyspneic afebrile, on a IV ABs Objective - Vital Signs/Intake and Output Vital Signs (last 24 hours): Temp Pulse Resp BP Pulse Ox 97.6 F 74 25 H 110/59 L 100 12/18/17 04:00 12/18/17 07:40 12/18/17 07:00 12/18/17 07:00 12/18/17 07:00 Intake and Output: 12/18/17 12/18/17 06:59 18:59 Intake Total 1650 100 Output Total 570 Balance 1080 100 - Medications Medications: Current Medications Albuterol/Ipratropium (Duoneb 3 Mg/0.5 Mg (3 Ml) Ud) 3 ml INH RQ6 [facility] Last Admin: 12/18/17 07:40 Dose: 3 ml Aspirin (Aspirin Chewable) 81 mg PO DAILY SHREYAS Last Admin: 12/18/17 09:51 Dose: 81 mg Cilostazol (Pletal) 100 mg PO DAILY SHREYAS Last Admin: 12/18/17 09:51 Dose: 100 mg Diltiazem HCl (Cardizem) 30 mg NG Q6H SHREYAS Last Admin: 12/18/17 06:01 Dose: 30 mg Enoxaparin Sodium (Lovenox) 30 mg SC DAILY [facility] Last Admin: 12/18/17 09:50 Dose: 30 mg Metronidazole (Flagyl) 500 mg in 100 mls @ 100 mls/hr IVPB Q8 SHREYAS PRN Reason: Protocol Last Admin: 12/18/17 06:01 Dose: 100 mls/hr Potassium Chloride/Dextrose/Sod Cl (Potassium Chl 40 Meq In D5-1/2ns) 1,000 mls @ 100 mls/hr IV .Q10H SHREYAS Last Admin: 12/18/17 08:19 Dose: 100 mls/hr Azithromycin 500 mg/ Sodium (Chloride) 250 mls @ 166.667 mls/hr IVPB DAILY SHREYAS PRN Reason: Protocol Stop: 12/21/17 10:01 Last Admin: 12/18/17 10:28 Dose: 166.667 mls/hr Ceftriaxone Sodium 1 gm/ (Sodium Chloride) 100 mls @ 200 mls/hr IVPB Q24H [facility] PRN Reason: Protocol Stop: 12/21/17 11:31 Last Admin: 12/18/17 10:29 Dose: 200 mls/hr Levothyroxine Sodium (Synthroid) 100 mcg PO 0630 [facility] Last Admin: 12/18/17 06:01 Dose: 100 mcg Methylprednisolone (Solu-Medrol) 40 mg IV DAILY [facility] Last Admin: 12/18/17 09:51 Dose: 40 mg Pantoprazole Sodium (Protonix Ec Tab) 40 mg PO DAILY [facility] Last Admin: 12/17/17 10:30 Dose: 40 mg Rosuvastatin Calcium (Crestor) 10 mg PO HS [facility] Last Admin: 12/17/17 21:21 Dose: 10 mg Saccharomyces Boulardii (Florastor) 250 mg PO BID [facility] Last Admin: 12/18/17 09:54 Dose: 250 mg Vancomycin HCl (Vancocin (Oral Or Rectal Use)) 125 mg PO QID [facility] PRN Reason: Protocol Last Admin: 12/18/17 09:52 Dose: 125 mg Vitamin A (Vitamin A & D Oint Ud Foilpak) 1 ea EXT Q8 PRN PRN Reason: Dry SKIN Last Admin: 12/16/17 10:00 Dose: 1 ea - Labs Labs: 12/18/17 06:42 12/18/17 06:42 PT 14.9 SECONDS (9.7-12.2) H 12/15/17 21:43 INR 1.4 12/15/17 21:43 APTT 28 SECONDS (21-34) 12/15/17 21:43 - Constitutional Appears: In Acute Distress, Chronically Ill - Head Exam Head Exam: ATRAUMATIC, NORMAL INSPECTION - Eye Exam Eye Exam: EOMI, Normal appearance - Neck Exam Neck Exam: Normal Inspection. absent: Tenderness - Respiratory Exam Respiratory Exam: Rhonchi, Respiratory Distress - Cardiovascular Exam Cardiovascular Exam: REGULAR RHYTHM, +S1 - GI/Abdominal Exam GI & Abdominal Exam: Soft. absent: Tenderness - Extremities Exam Extremities Exam: Normal Inspection. absent: Tenderness - Neurological Exam Neurological Exam: Awake, CN II-XII Intact - Skin Skin Exam: Dry, Warm Assessment and Plan (1) MAYUR (acute kidney injury) Status: Acute (2) Hypernatremia Status: Acute (3) Atrial fibrillation with rapid ventricular response Status: Acute (4) C. difficile colitis Status: Acute (5) COPD (chronic obstructive pulmonary disease) Status: Acute - Assessment and Plan (Free Text) Plan: increase free water replete phos rx c.diff
--- NOTE | 2017-12-18 12:44 | CP.CCUPN ---
<SinghAnna - Last Filed: 12/18/17 17:50> CCU Subjective - Physician Review Subjective (Free Text): 12/18/17 12:41 82 year old female w/ PMHx of COPD and dementia sent in from residential due to abnormal labs. Patient found to be septic, dehydrated, and in Afib; admitted to ICU for drip to control rate. No acute events overnight, no arrythmias. Patient continues to have liquid dark green stool via flexi-seal. Ramos in place draining concentrated urine. On contact isolation for confirmed C. Diff. Patient is NPO with NG in place. Patient is non-verbal. 12/18/17 12:51 12/18/17 16:15 CCU Objective - Vital Signs / Intake & Output Intake and Output (Last 8hrs): Intake & Output 12/17/17 12/18/17 12/18/17 22:59 06:59 14:59 Intake Total 1000 1050 100 Output Total 895 490 Balance 105 560 100 Weight 105 lb 6.095 oz Intake: Intake, IV Amount 900 900 100 left forearm 300 800 100 left forearm distal port 100 100 rt. ac #2 port 500 Other 100 150 Output: Urine 195 140 Urethral (Ramos) 195 140 Stool 700 350 - Physical Exam Physical Exam Limitations: Positive for: Altered Mental Status Head: Positive for: Atraumatic, Normocephalic Conjunctiva: Positive for: Normal Mouth: Positive for: Dry Neck: Positive for: Normal Range of Motion Respiratory/Chest: Positive for: Wheezes, Decreased Breath Sounds Cardiovascular: Positive for: Regular Rate and Rhythm. Negative for: Murmurs Abdomen: Positive for: Normal Bowel Sounds Upper Extremity: Positive for: Normal Inspection. Negative for: Cyanosis, Edema Lower Extremity: Positive for: Normal Inspection. Negative for: Edema Skin: Positive for: Warm Psychiatric: Positive for: Lethargic - Medications Active Medications: Active Medications Generic Name Dose Route Start Last Admin Trade Name Freq PRN Reason Stop Dose Admin Albuterol/Ipratropium 3 ml 12/16/17 02:00 12/18/17 07:40 Duoneb 3 Mg/0.5 Mg (3 Ml) Ud INH 3 ml RQ6 SHREYAS Administration Aspirin 81 mg 12/16/17 10:00 12/18/17 09:51 Aspirin Chewable PO 81 mg DAILY SHREYAS Administration Cilostazol 100 mg 12/16/17 10:00 12/18/17 09:51 Pletal PO 100 mg DAILY SHREYAS Administration Diltiazem HCl 30 mg 12/17/17 00:00 12/18/17 12:05 Cardizem NG 30 mg Q6H SHREYAS Administration Enoxaparin Sodium 30 mg 12/16/17 10:00 12/18/17 09:50 Lovenox SC 30 mg DAILY SHREYAS Administration Metronidazole 500 mg in 100 mls @ 100 mls/hr 12/16/17 14:00 12/18/17 06:01 Flagyl IVPB 100 mls/hr Q8 SHREYAS Administration Protocol Potassium Chloride/Dextrose/Sod Cl 1,000 mls @ 100 mls/hr 12/17/17 10:00 08/06 08:19 Potassium Chl 40 Meq In D5-1/2ns IV 100 mls/hr .Q10H SHREYAS Administration Azithromycin 500 mg/ Sodium 250 mls @ 166.667 mls/hr 12/18/17 10:00 12/18/17 10:28 Chloride IVPB 12/21/17 10:01 166.667 mls/hr DAILY SHREYAS Administration Protocol Ceftriaxone Sodium 1 gm/ 100 mls @ 200 mls/hr 12/18/17 11:30 12/18/17 10:29 Sodium Chloride IVPB 12/21/17 11:31 200 mls/hr Q24H SHREYAS Administration Protocol Levothyroxine Sodium 100 mcg 12/16/17 06:30 12/18/17 06:01 Synthroid PO 100 mcg 0630 SHREYAS Administration Methylprednisolone 40 mg 12/18/17 10:00 12/18/17 09:51 Solu-Medrol IV 40 mg DAILY SHREYAS Administration Pantoprazole Sodium 40 mg 12/18/17 12:15 12/18/17 12:17 Protonix Inj IVP 40 mg DAILY SHREYAS Administration Potassium Phos/Sodium Phos 1 pkt 12/18/17 18:00 Neutra-Phos PO 12/21/17 18:00 BID SHREYAS Rosuvastatin Calcium 10 mg 12/17/17 22:00 12/17/17 21:21 Crestor PO 10 mg HS SHREYAS Administration Saccharomyces Boulardii 250 mg 12/18/17 10:00 12/18/17 09:54 Florastor PO 250 mg BID SHREYAS Administration Vancomycin HCl 125 mg 12/16/17 14:00 12/18/17 09:52 Vancocin (Oral Or Rectal Use) PO 125 mg QID SHREYAS Administration Protocol Vitamin A 1 ea 12/16/17 00:33 12/16/17 10:00 Vitamin A & D Oint Ud Foilpak EXT 1 ea Q8 PRN Administration Dry SKIN - Patient Studies Lab Studies: Microbiology Studies 12/16/17 07:08 Urine Culture - Final Urine,Catheterized Enterococcus Faecalis 12/16/17 08:03 Blood Culture - Preliminary Blood-Venous NO GROWTH AFTER 48 HOURS 12/16/17 08:03 Blood Culture - Preliminary Blood-Venous NO GROWTH AFTER 48 HOURS 12/16/17 06:37 MRSA Culture (Admit) - Final Nose MRSA NOT DETECTED Lab Studies 12/18/17 12/18/17 Range/Units 06:42 06:42 WBC 12.5 H (4.8-10.8) K/uL RBC 3.39 L (3.80-5.20) Mil/uL Hgb 10.2 L (11.0-16.0) g/dL Hct 31.7 L (34.0-47.0) % MCV 93.5 (81.0-99.0) fL MCH 29.9 (27.0-31.0) pg MCHC 32.0 L (33.0-37.0) g/dL RDW 17.1 H (11.5-14.5) % Plt Count 223 (130-400) K/uL MPV 9.1 (7.2-11.7) fL Neut % (Auto) 94.4 H (50.0-75.0) % Lymph % (Auto) 2.1 L (20.0-40.0) % [place] % (Auto) 3.4 (0.0-10.0) % Eos % (Auto) 0.0 (0.0-4.0) % Baso % (Auto) 0.1 (0.0-2.0) % Neut # (Auto) 11.8 H (1.8-7.0) K/uL Lymph # (Auto) 0.3 L (1.0-4.3) K/uL [place] # (Auto) 0.4 (0.0-0.8) K/uL Eos # (Auto) 0.0 (0.0-0.7) K/uL Baso # (Auto) 0.0 (0.0-0.2) K/uL Neutrophils % (Manual) 97 H (50-75) % Lymphocytes % (Manual) 1 L (20-40) % Monocytes % (Manual) 2 (0-10) % Platelet Estimate Normal (NORMAL) Polychromasia Slight Hypochromasia (manual) Slight Anisocytosis (manual) Slight [place] Cells Slight Sodium 151 H (132-148) mmol/L Potassium 4.4 (3.6-5.2) mmol/L Chloride 120 H (98-107) mmol/L Carbon Dioxide 21 L (22-30) mmol/L Anion Gap 15 (10-20) BUN 20 H (7-17) mg/dL Creatinine 0.8 (0.7-1.2) mg/dL Est GFR ( Amer) > 60 Est GFR (Non-Af Amer) > 60 Random Glucose 137 H (65-105) mg/dL Calcium 8.5 L (8.6-10.4) mg/dl Phosphorus 1.6 L (2.5-4.5) mg/dL Magnesium 1.8 (1.6-2.3) mg/dL Total Bilirubin 0.2 (0.2-1.3) mg/dL AST 26 (14-36) U/L ALT 48 (9-52) U/L Alkaline Phosphatase 70 (38-126) U/L Total Protein 5.0 L (6.3-8.3) g/dL Albumin 2.5 L (3.5-5.0) g/dL Globulin 2.5 (2.2-3.9) gm/dL Albumin/Globulin Ratio 1.0 (1.0-2.1) Laboratory Results - last 24 hr 12/18/17 12/18/17 06:42 06:42 WBC 12.5 H RBC 3.39 L Hgb 10.2 L Hct 31.7 L MCV 93.5 MCH 29.9 MCHC 32.0 L RDW 17.1 H Plt Count 223 MPV 9.1 Neut % (Auto) 94.4 H Lymph % (Auto) 2.1 L [place] % (Auto) 3.4 Eos % (Auto) 0.0 Baso % (Auto) 0.1 Neut # (Auto) 11.8 H Lymph # (Auto) 0.3 L [place] # (Auto) 0.4 Eos # (Auto) 0.0 Baso # (Auto) 0.0 Neutrophils % (Manual) 97 H Lymphocytes % (Manual) 1 L Monocytes % (Manual) 2 Platelet Estimate Normal Polychromasia Slight Hypochromasia (manual) Slight Anisocytosis (manual) Slight [place] Cells Slight Sodium 151 H Potassium 4.4 Chloride 120 H Carbon Dioxide 21 L Anion Gap 15 BUN 20 H Creatinine 0.8 Est GFR ( Amer) > 60 Est GFR (Non-Af Amer) > 60 Random Glucose 137 H Calcium 8.5 L Phosphorus 1.6 L Magnesium 1.8 Total Bilirubin 0.2 AST 26 ALT 48 Alkaline Phosphatase 70 Total Protein 5.0 L Albumin 2.5 L Globulin 2.5 Albumin/Globulin Ratio 1.0 Review of Systems - Review of Systems Systems not reviewed;Unavailable: Altered Mental Status Critical Care Progress Note - Extremities/Vascular Does the Patient have a Central Venous Catheter?: No Does the Patient have a Ramos Catheter?: Yes - Prophylaxis GI Prophylaxis GI: PPI - Prophylaxis DVT Prophylaxis DVT: Lovenox - Nutrition Nutrition: Nutrition Category Date Time Status Heart Healthy Diet [DIET] Diets 12/16/17 Dinner Active Assessment/Plan - Assessment and Plan (Free Text) Assessment: 82 year old female w/ PMHx of COPD and dementia sent in from residential due to abnormal labs. Patient found to be septic, dehydrated, and in Afib; admitted to ICU for drip to control rate. 1. Afib with RVR -monitor for episodes and tx accordingly -Cardizem 30mg NG Q6 -ChadsVasc=4 , Hasbled=2 with risk of 4.1% 1 yr bleed risk. Consider risk of bleed vs benefit of anticoag. Pt to remain on Aspirin 81mg -Dr. Vinson on consult 2. C. Diff Colitis -IVF- KCl 40 Meq in D5 1/2 NS @ 100ml/hr -IV Abx-Flagyl 500mg Q8, Vanco 250mg PO QID -ID consult, Dr. Ovalle 3. Pneumonia -likely aspiration -IV Abx-Zosyn 2.25g Q8 4. UTI-+ for Enterococcus Faecalis -IV Abx-Zosyn 2.25g Q8 -Id con 5. Respiratory distress like 2/2 to COPD -Duonebs-3ml inh Q6 -steroids 40 IV QD -Abx-Zosyn 2.25g Q8 -CT-RLL infiltrate L breast mass noted on CT 6. Hypernatremia-likely 2/2 to dehydration -improving, cont to monitor -Nephro, Dr. Dodd consulted 7. MAYUR- -resolved -Dr. Dodd, consult 8. Breast Mass -f/u op for L breast mass noted on chest CT 9. PAD -Pletal 100mg PO daily -Aspirin 81 PO daily 10. Hypothyroidism -TSH pending -Synthroid 100mcg/day -adjust meds accordingly Ppx GI-Protonix 40mg DVT-Lovenox 30mg Transferred to Tele Case discussed w Dr. Pagan <Tan Pagan - Last Filed: 12/25/17 09:11> CCU Objective - Vital Signs / Intake & Output Vital Signs (Last 4 hours): Vital Signs Temp Pulse Resp BP Pulse Ox 12/25/17 08:00 97.7 F 96 H 19 119/70 98 Intake and Output (Last 8hrs): Intake & Output 12/24/17 12/25/17 12/25/17 22:59 06:59 14:59 Intake Total 550 800 Output Total 500 102 Balance 50 698 Intake: Intake, IV Amount 50 100 right single lumen PICC 50 100 Tube Feeding 200 400 Other 300 300 Output: Urine 200 2 Urine, Voided 200 2 Stool 300 100 - Medications Active Medications: Active Medications Generic Name Dose Route Start Last Admin Trade Name Freq PRN Reason Stop Dose Admin Albuterol/Ipratropium 3 ml 12/21/17 14:00 12/25/17 07:59 Duoneb 3 Mg/0.5 Mg (3 Ml) Ud INH Not Given RQ6 SHREYAS Cholestyramine Resin 4 gm 12/24/17 18:00 12/24/17 17:25 Questran PO 4 gm BID SHREYAS Administration Diltiazem HCl 30 mg 12/17/17 00:00 12/25/17 06:02 Cardizem NG 30 mg Q6H SHREYAS Administration Fluconazole 50 mls @ 100 mls/hr 12/22/17 10:00 12/24/17 09:50 Diflucan Iv 100 Mg/50 Ml Ns IVPB 12/26/17 10:29 100 mls/hr Q24H SHREYAS Administration Protocol Cefepime HCl 1 gm in 50 mls @ 100 mls/hr 12/22/17 18:00 12/24/17 17:24 Maxipime Iv 1 Gm Premix IVPB 100 mls/hr Q24H SHREYAS Administration Protocol Metronidazole 500 mg in 100 mls @ 100 mls/hr 12/22/17 22:00 12/25/17 06:02 Flagyl IVPB 100 mls/hr Q8 SHREYAS Administration Protocol Levothyroxine Sodium 100 mcg 12/16/17 06:30 12/25/17 06:04 Synthroid PO 100 mcg 0630 SHREYAS Administration Lorazepam 0.5 mg 12/23/17 16:00 12/25/17 06:05 Ativan PO 0.5 mg Q8 SHREYAS Administration Magnesium Chloride 64 mg 12/22/17 10:00 12/24/17 09:41 Slow-Mag PO 64 mg DAILY SHREYAS Administration Methylprednisolone 40 mg 12/18/17 10:00 12/24/17 09:41 Solu-Medrol IV 40 mg DAILY SHREYAS Administration Pantoprazole Sodium 40 mg 12/25/17 10:00 Protonix Inj IVP DAILY SHREYAS Rifampin 300 mg 12/24/17 20:00 12/24/17 19:43 Rifampin Cap PO 300 mg BID SHREYAS Administration Protocol Rosuvastatin Calcium 10 mg 12/17/17 22:00 12/24/17 21:16 Crestor PO 10 mg HS SHREYAS Administration Saccharomyces Boulardii 250 mg 12/18/17 10:00 12/24/17 17:25 Florastor PO 250 mg BID SHREYAS Administration Fluticasone/Salmeterol 1 puff 12/24/17 08:00 12/25/17 07:59 Advair Diskus 250/50 INH Not Given RQ12 [facility] Vancomycin HCl 250 mg 12/22/17 22:00 12/24/17 22:00 Vancocin (Oral Or Rectal Use) PO 250 mg QID SHREYAS Administration Protocol Vitamin A 1 ea 12/16/17 00:33 12/23/17 17:24 Vitamin A & D Oint Ud Foilpak EXT 1 ea Q8 PRN Administration Dry SKIN - Patient Studies Lab Studies: Microbiology Studies 12/22/17 19:30 Blood Culture - Preliminary Blood-Thru Central Line NO GROWTH AFTER 48 HOURS 12/22/17 19:30 Blood Culture - Preliminary Blood-Thru Central Line NO GROWTH AFTER 48 HOURS Lab Studies 12/25/17 12/25/17 12/24/17 Range/Units 06:15 06:15 20:36 WBC 16.5 H 18.1 H (4.8-10.8) K/uL RBC 2.45 L 2.66 L (3.80-5.20) Mil/uL Hgb 7.3 L 7.8 L (11.0-16.0) g/dL Hct 21.9 L 23.8 L (34.0-47.0) % MCV 89.6 89.6 (81.0-99.0) fL MCH 29.9 29.2 (27.0-31.0) pg MCHC 33.3 32.6 L (33.0-37.0) g/dL RDW 17.8 H 17.4 H (11.5-14.5) % Plt Count 332 352 (130-400) K/uL MPV 9.2 8.5 (7.2-11.7) fL Neut % (Auto) 90.1 H (50.0-75.0) % Lymph % (Auto) 4.5 L (20.0-40.0) % [place] % (Auto) 5.1 (0.0-10.0) % Eos % (Auto) 0.0 (0.0-4.0) % Baso % (Auto) 0.3 (0.0-2.0) % Neut # (Auto) 14.8 H (1.8-7.0) K/uL Lymph # (Auto) 0.7 L (1.0-4.3) K/uL [place] # (Auto) 0.8 (0.0-0.8) K/uL Eos # (Auto) 0.0 (0.0-0.7) K/uL Baso # (Auto) 0.0 (0.0-0.2) K/uL Neutrophils % (Manual) 84 H (50-75) % Band Neutrophils % 3 H (0-2) % Lymphocytes % (Manual) 4 L (20-40) % Monocytes % (Manual) 8 (0-10) % Metamyelocytes % 1 H (0-0) % Nucleated RBC % 1 H (0-0) % Platelet Estimate Normal (NORMAL) Poikilocytosis (manual Slight Anisocytosis (manual) Slight [place] Cells Slight Carcinoembryonic Ag 3.5 H (0-3.0) ng/mL Laboratory Results - last 24 hr 12/24/17 12/25/17 12/25/17 20:36 06:15 06:15 WBC 18.1 H 16.5 H RBC 2.66 L 2.45 L Hgb 7.8 L 7.3 L Hct 23.8 L 21.9 L MCV 89.6 89.6 MCH 29.2 29.9 MCHC 32.6 L 33.3 RDW 17.4 H 17.8 H Plt Count 352 332 MPV 8.5 9.2 Neut % (Auto) 90.1 H Lymph % (Auto) 4.5 L [place] % (Auto) 5.1 Eos % (Auto) 0.0 Baso % (Auto) 0.3 Neut # (Auto) 14.8 H Lymph # (Auto) 0.7 L [place] # (Auto) 0.8 Eos # (Auto) 0.0 Baso # (Auto) 0.0 Neutrophils % (Manual) 84 H Band Neutrophils % 3 H Lymphocytes % (Manual) 4 L Monocytes % (Manual) 8 Metamyelocytes % 1 H Nucleated RBC % 1 H Platelet Estimate Normal Poikilocytosis (manual Slight Anisocytosis (manual) Slight [place] Cells Slight Carcinoembryonic Ag 3.5 H Attending/Attestation - Attestation I have fully participated in the care of the patient.: Yes I have reviewed all pertinent clinical information: Yes Notes (Text): pt is seen examined and reviewed with resident and agree with note
--- NOTE | 2017-12-18 13:53 | CP.PCM.CON ---
History of Present Illness - History of Present Illness History of Present Illness: INFECTIOUS DISEASE CONSULT; HPI; 82-year-old female with past medical history of COPD, CHF, HTN, hypothyroidism, and dementia ,a [facility] resident who was sent to [facility], [place] for evaluation of abnormal labs and low-grade temperatures. On admission patient was found to have leukocytosis of 17.6 and also patient was having rapid ventricular rate for which patient was admitted to ICU for drip to control the rate. Patient also was noted to have diarrhea having dark green liquid stools via flexseal. Also patient was found to be dehydrated with sodium of 151. foly- catheter was in place draining concentrated urine. Patient presently seen on BiPAP. Patient presently having chills. Infectious disease consultation requested byPMD. PATIENT HAS NGT IN PLACE. PATIENT NONVERBAL. HISTORY OBTAINED MAINLY FROM THE CHART. PATIENT C. DIFFICILE TOXIN REPORTED POSITIVE. ALSO URINE CULTURE REPORTED POSITIVE FOR ENTEROCOCCUS FAECALIS. ON ADMISSION CHEST X-RAY SHOWED RIGHT LOWER LOBE INFILTRATE. PATIENT WAS PLACED ON iv ROCEPHIN,iv ZITHROMAX, IV fLAGYL, BY MOUTH VANCO. CT chest 12/16/17 without contrast also showed right lower lobe infiltrate, /? mucous debris versus endobronchial mass. Calcified left hilar lymph node and some calcifications seen in spleen consistent with old granulomatous disease.Left breast mass. PMH: Anxiety, Arthritis (B/L KNEES), CHF, COPD, Emphysema, HTN, Hypothyroidism - [facility] Procedures ANGIOPLASTY OF OTHER NON-CORONARY VESSEL(S) (01/22/15) EXCISION OF DUODENUM, ENDO, DIAGN (11/25/17) INSEJ [id number] PERIPHERAL NON-CORONARY VES STENT(S) (01/22/15) INSERTION OF TWO VASCULAR STENTS (01/22/15) INSPECTION OF LOWER INTESTINAL TRACT, ENDO (11/25/17) PROCEDURE ON TWO VESSELS (01/22/15) RADICAL EXCIS SKIN LES (10/29/12) RESPIRATORY VENTILATION, 24-96 CONSECUTIVE HOURS (11/25/17) Family History: States: Unknown Family Hx - Social History Hx Tobacco Use: No Hx Alcohol Use: No Hx Substance Use: No - Immunization History Hx Tetanus Toxoid Vaccination: Yes Hx Influenza Vaccination: Yes (04/2017) Hx Pneumococcal Vaccination: Yes (10/13/17) Review Of Systems Review Of Systems: ROS cannot be obtained secondary to pt's inabilty to answer questions. Past Patient History - Infectious Disease Hx of Infectious Diseases: None - Past Medical History & Family History Past Medical History?: Yes - Past Social History Smoking Status: Former Smoker - CARDIAC Hx Congestive Heart Failure: Yes Hx Hypertension: Yes - PULMONARY Hx Chronic Obstructive Pulmonary Disease (COPD): Yes Hx Emphysema: Yes - NEUROLOGICAL Hx Neurological Disorder: No Hx Paralysis: No - HEENT Hx HEENT Problems: No - ENDOCRINE/METABOLIC Hx Hypothyroidism: Yes - HEMATOLOGICAL/ONCOLOGICAL Hx Blood Disorders: No Hx Blood Transfusions: No Hx Cancer: Yes ("STOMACH") - INTEGUMENTARY Hx Dermatological Problems: No - MUSCULOSKELETAL/RHEUMATOLOGICAL Hx Arthritis: Yes (B/L KNEES) - GASTROINTESTINAL Hx Gastrointestinal Disorders: No - GENITOURINARY/GYNECOLOGICAL Hx Genitourinary Disorders: No - PSYCHIATRIC Hx Anxiety: Yes Hx Substance Use: No - SURGICAL HISTORY Hx Surgeries: Yes Other/Comment: insertion of vascular stents (01/31). "STOMACH CANCER SURGERY" - ANESTHESIA Hx Anesthesia: Yes Hx Anesthesia Reactions: No Hx Malignant Hyperthermia: No Meds Allergies/Adverse Reactions: Allergies Allergy/AdvReac Type Severity Reaction Status Date / Time No Known Allergies Allergy Verified 11/18/17 14:12 - Medications Medications: Current Medications Albuterol/Ipratropium (Duoneb 3 Mg/0.5 Mg (3 Ml) Ud) 3 ml INH RQ6 [facility] Last Admin: 12/18/17 13:37 Dose: 3 ml Aspirin (Aspirin Chewable) 81 mg PO DAILY [facility] Last Admin: 12/18/17 09:51 Dose: 81 mg Cilostazol (Pletal) 100 mg PO DAILY [facility] Last Admin: 12/18/17 09:51 Dose: 100 mg Diltiazem HCl (Cardizem) 30 mg NG Q6H [facility] Last Admin: 12/18/17 12:05 Dose: 30 mg Enoxaparin Sodium (Lovenox) 30 mg SC DAILY [facility] Last Admin: 12/18/17 09:50 Dose: 30 mg Metronidazole (Flagyl) 500 mg in 100 mls @ 100 mls/hr IVPB Q8 [facility] PRN Reason: Protocol Last Admin: 12/18/17 13:41 Dose: 100 mls/hr Potassium Chloride/Dextrose/Sod Cl (Potassium Chl 40 Meq In D5-1/2ns) 1,000 mls @ 100 mls/hr IV .Q10H [facility] Last Admin: 12/18/17 08:19 Dose: 100 mls/hr Azithromycin 500 mg/ Sodium (Chloride) 250 mls @ 166.667 mls/hr IVPB DAILY [facility] PRN Reason: Protocol Stop: 12/21/17 10:01 Last Admin: 12/18/17 10:28 Dose: 166.667 mls/hr Ceftriaxone Sodium 1 gm/ (Sodium Chloride) 100 mls @ 200 mls/hr IVPB Q24H [facility] PRN Reason: Protocol Stop: 12/21/17 11:31 Last Admin: 12/18/17 10:29 Dose: 200 mls/hr Levothyroxine Sodium (Synthroid) 100 mcg PO 0630 [facility] Last Admin: 12/18/17 06:01 Dose: 100 mcg Methylprednisolone (Solu-Medrol) 40 mg IV DAILY [facility] Last Admin: 12/18/17 09:51 Dose: 40 mg Pantoprazole Sodium (Protonix Inj) 40 mg IVP DAILY [facility] Last Admin: 12/18/17 12:17 Dose: 40 mg Potassium Phos/Sodium Phos (Neutra-Phos) 1 pkt PO BID [facility] Stop: 12/21/17 18:00 Rosuvastatin Calcium (Crestor) 10 mg PO HS [facility] Last Admin: 12/17/17 21:21 Dose: 10 mg Saccharomyces Boulardii (Florastor) 250 mg PO BID [facility] Last Admin: 12/18/17 09:54 Dose: 250 mg Vancomycin HCl (Vancocin (Oral Or Rectal Use)) 125 mg PO QID [facility] PRN Reason: Protocol Last Admin: 12/18/17 13:41 Dose: 125 mg Vitamin A (Vitamin A & D Oint Ud Foilpak) 1 ea EXT Q8 PRN PRN Reason: Dry SKIN Last Admin: 12/16/17 10:00 Dose: 1 ea Physical Exam - Constitutional Appears: Cachectic, Chronically Ill - Head Exam Head Exam: NORMAL INSPECTION - Eye Exam Eye Exam: EOMI, PERRL - ENT Exam ENT Exam: Mucous Membranes Dry - Neck Exam Neck exam: Positive for: Normal Inspection. Negative for: Lymphadenopathy - Respiratory Exam Respiratory Exam: Rhonchi (.) - Cardiovascular Exam Cardiovascular Exam: Tachycardia, Irregular Rhythm, +S1, +S2 - GI/Abdominal Exam GI & Abdominal Exam: Normal Bowel Sounds, Soft. absent: Tenderness Additional comments: +ve rt.flexiseal +ve liquid green stools - Extremities Exam Extremities exam: Positive for: pedal pulses present. Negative for: calf tenderness (bilateral Multi-Podus boots on), pedal edema - Neurological Exam Neurological exam: Altered (but awake), CN II-XII Intact - Skin Skin Exam: Normal Color, Warm Results - Vital Signs Recent Vital Signs: Last Vital Signs Temp 97.6 F 12/18/17 04:00 Pulse 74 12/18/17 07:40 Resp 25 H 12/18/17 07:00 BP 110/59 L 12/18/17 07:00 Pulse Ox 100 12/18/17 07:00 - Labs Result Diagrams: 12/18/17 06:42 12/18/17 06:42 Labs: Laboratory Results - last 24 hr 12/18/17 12/18/17 06:42 06:42 WBC 12.5 H RBC 3.39 L Hgb 10.2 L Hct 31.7 L MCV 93.5 MCH 29.9 MCHC 32.0 L RDW 17.1 H Plt Count 223 MPV 9.1 Neut % (Auto) 94.4 H Lymph % (Auto) 2.1 L [place] % (Auto) 3.4 Eos % (Auto) 0.0 Baso % (Auto) 0.1 Neut # (Auto) 11.8 H Lymph # (Auto) 0.3 L [place] # (Auto) 0.4 Eos # (Auto) 0.0 Baso # (Auto) 0.0 Neutrophils % (Manual) 97 H Lymphocytes % (Manual) 1 L Monocytes % (Manual) 2 Platelet Estimate Normal Polychromasia Slight Hypochromasia (manual) Slight Anisocytosis (manual) Slight Tarah Cells Slight Sodium 151 H Potassium 4.4 Chloride 120 H Carbon Dioxide 21 L Anion Gap 15 BUN 20 H Creatinine 0.8 Est GFR ( Amer) > 60 Est GFR (Non-Af Amer) > 60 Random Glucose 137 H Calcium 8.5 L Phosphorus 1.6 L Magnesium 1.8 Total Bilirubin 0.2 AST 26 ALT 48 Alkaline Phosphatase 70 Total Protein 5.0 L Albumin 2.5 L Globulin 2.5 Albumin/Globulin Ratio 1.0 TSH 3rd Generation 5.28 H - Imaging and Cardiology CT scan - chest Status: Report reviewed by me (reviewed) Assessment & Plan (1) Pneumonia Assessment and Plan: Patient on BiPAP presently. Chest x-ray/scan of the chest consistent with right lower lobe infiltrate probably aspiration pneumonia vs r/o obstructive pneumonitis with questionable right endobronchial mass versus debris noted . DC IV ROCEPHIN. DC iv zITHROMAX. START PATIENT ON ZOSYN 2.25 EVERY 8 HOURLY 12/18/17 CONTINUE iv fLAGYL 500 MG EVERY 8 HOURLY ORDERED.12/16/17. INCREASE PO VANCOMYCIN 250 BY MOUTH 4 TIMES A DAY.12/18/17. CASE DISCUSSED WITH RESIDENT DR CANDY GAITAN AND STAFF PULMONARY TOILET PER CRITICAL CARE/WARD CLERK Status: Acute (2) C. difficile colitis Assessment and Plan: PATIENT POSITIVE FOR C. DIFFICILE TOXIN. CONTINUE iv fLAGYL 500 EVERY 8 HOURLY 12/15/17 BY MOUTH VANCOMYCIN 250 BY MOUTH 4 TIMES A DAY .12/18/17 CONTACT AND ENTERIC PRECAUTIONS. Status: Acute (3) Dehydration Assessment and Plan: NEPHROLOGY ON BOARD. iv FLUIDS PER RENAL. Status: Acute (4) Hypernatremia Status: Acute (5) Atrial fibrillation with rapid ventricular response Assessment and Plan: PATIENT ON CARDIZEM DRIP FOR RATE CONTROL. Status: Acute (6) Breast mass, left Assessment and Plan: FURTHER WORKUP PER PMD. Status: Acute
[2017-12-18] MEDS: Pantoprazole 40 mg EC Tab PO SCH (14:09)
[2017-12-18] MEDS: Piperacill/Tazo 2.25gm in Dex 2.25 GM/50 ML BAG IVPB SCH ×2 (15:01→21:32)
--- NOTE | 2017-12-18 16:13 | CP.PCM.PN ---
Subjective - Date & Time of Evaluation Date of Evaluation: 12/18/17 Time of Evaluation: 14:40 - Subjective Subjective: The patient seen and examined Respiratory distress without BiPAP Awake/confused Afebrile Being treated for C. difficile colitis Objective - Vital Signs/Intake and Output Vital Signs (last 24 hours): Temp Pulse Resp BP Pulse Ox 97.5 F L 103 H 38 H 114/62 98 12/18/17 08:00 12/18/17 15:00 12/18/17 15:00 12/18/17 15:00 12/18/17 14:00 Intake and Output: 12/18/17 12/18/17 06:59 18:59 Intake Total 1650 650 Output Total 570 120 Balance 1080 530 - Medications Medications: Current Medications Albuterol/Ipratropium (Duoneb 3 Mg/0.5 Mg (3 Ml) Ud) 3 ml INH RQ6 [facility] Last Admin: 12/18/17 13:37 Dose: 3 ml Aspirin (Aspirin Chewable) 81 mg PO DAILY [facility] Last Admin: 12/18/17 09:51 Dose: 81 mg Cilostazol (Pletal) 100 mg PO DAILY [facility] Last Admin: 12/18/17 09:51 Dose: 100 mg Diltiazem HCl (Cardizem) 30 mg NG Q6H [facility] Last Admin: 12/18/17 12:05 Dose: 30 mg Enoxaparin Sodium (Lovenox) 30 mg SC DAILY [facility] Last Admin: 12/18/17 09:50 Dose: 30 mg Metronidazole (Flagyl) 500 mg in 100 mls @ 100 mls/hr IVPB Q8 [facility] PRN Reason: Protocol Last Admin: 12/18/17 13:41 Dose: 100 mls/hr Potassium Chloride/Dextrose/Sod Cl (Potassium Chl 40 Meq In D5-1/2ns) 1,000 mls @ 100 mls/hr IV .Q10H [facility] Last Admin: 12/18/17 08:19 Dose: 100 mls/hr Piperacillin Sod/Tazobactam Sod (Zosyn 2.25 Gm Iv Premix) 2.25 gm in 50 mls @ 100 mls/hr IVPB Q8H [facility] PRN Reason: Protocol Last Admin: 12/18/17 15:01 Dose: 100 mls/hr Levothyroxine Sodium (Synthroid) 100 mcg PO 0630 [facility] Last Admin: 12/18/17 06:01 Dose: 100 mcg Methylprednisolone (Solu-Medrol) 40 mg IV DAILY [facility] Last Admin: 12/18/17 09:51 Dose: 40 mg Pantoprazole Sodium (Protonix Inj) 40 mg IVP DAILY [facility] Last Admin: 12/18/17 12:17 Dose: 40 mg Potassium Phos/Sodium Phos (Neutra-Phos) 1 pkt PO BID [facility] Stop: 12/21/17 18:00 Rosuvastatin Calcium (Crestor) 10 mg PO HS [facility] Last Admin: 12/17/17 21:21 Dose: 10 mg Saccharomyces Boulardii (Florastor) 250 mg PO BID [facility] Last Admin: 12/18/17 09:54 Dose: 250 mg Vancomycin HCl (Vancocin (Oral Or Rectal Use)) 250 mg PO QID [facility] PRN Reason: Protocol Vitamin A (Vitamin A & D Oint Ud Foilpak) 1 ea EXT Q8 PRN PRN Reason: Dry SKIN Last Admin: 12/16/17 10:00 Dose: 1 ea - Labs Labs: 12/18/17 06:42 12/18/17 06:42 PT 14.9 SECONDS (9.7-12.2) H 12/15/17 21:43 INR 1.4 12/15/17 21:43 APTT 28 SECONDS (21-34) 12/15/17 21:43 - Head Exam Head Exam: ATRAUMATIC, NORMOCEPHALIC - ENT Exam ENT Exam: Mucous Membranes Dry - Neck Exam Neck Exam: Normal Inspection - Respiratory Exam Respiratory Exam: Decreased Breath Sounds - Cardiovascular Exam Cardiovascular Exam: REGULAR RHYTHM - GI/Abdominal Exam GI & Abdominal Exam: Soft, Normal Bowel Sounds Assessment and Plan (1) C. difficile colitis Assessment & Plan: Continue antibiotics And BiPAP Nebulizer treatment and steroids Status: Acute (2) COPD exacerbation Status: Acute (3) Dehydration Status: Acute
[2017-12-18] MEDS: Potassium & Sodium Phosphate PO SCH (17:56)
--- NOTE | 2017-12-18 18:38 | CARD ---
APPROVED REPORT EKG Measurement Heart [id number] <Conclusion> Atrial fibrillation with rapid ventricular response Left axis deviation Low voltage QRS Inferior-posterior infarct, age undetermined can not be excluded. Abnormal ECG
--- NOTE | 2017-12-18 18:47 | CARD ---
APPROVED REPORT EKG Measurement Heart [id number] HI [id number] [id number] <Conclusion> Atrial fibrillation with rapid ventricular response Left anterior fascicular block Minimal voltage criteria for LVH, may be normal variant Incomplete RBBB Possible Anterolateral infarct, age undetermined Abnormal ECG
--- NOTE | 2017-12-18 21:21 | PN ---
DATE: 12/18/2017 SUBJECTIVE: The patient is currently on BiPAP. She is restless. The patient's son is at the bedside. This patient is in rapid atrial fibrillation. PHYSICAL EXAMINATION: VITAL SIGNS: Blood pressure 113/70, heart rate 98, temperature 98.2, respirations 28. HEENT: Pale conjunctivae. CHEST: Bilateral rhonchi. HEART: S1 and S2, regular. ABDOMEN: Soft. EXTREMITIES: No edema. LABORATORY DATA: Today's SMA-7: Sodium 151, potassium 4.4, chloride 120, CO2 of 21, glucose 137, BUN 20, creatinine 0.8. CBC: WBC is 12.5, hemoglobin 10.2, hematocrit 31.7, platelet count 123,000. Urine culture is positive for Enterococcus faecalis. Blood culture is negative after 48 hours. ASSESSMENT: 1. Right lower lobe pneumonia. 2. Exacerbation of chronic obstructive lung disease. 3. Consider [id number] myocardial infarction. 4. Enterococcus faecalis urinary tract infection. 5. Dehydration, hypernatremia, and prerenal azotemia. 6. Peripheral vascular disease. 7. Clostridium difficile colitis. 8. Mild anemia. 9. Hypophosphatemia. 10. Hypothyroidism. RECOMMENDATIONS: Continue aspirin 81 mg once a day, Cardizem 30 mg every 6 hours via nasogastric tube. Continue Crestor 10 mg once a day, IV Flagyl at 500 mg every 8 hours, Lovenox 30 mg subcutaneously daily. The patient did receive Neutra-Phos 1 packet p.o. twice a day as a phosphate replacement. Continue Pletal at 100 mg daily, Protonix 40 mg intravenously daily, Synthroid 100 mcg once a day, Zosyn 2.25 gm intravenously every 8 hours. Tru Vinson MD
--- NOTE | 2017-12-18 23:20 | CARD ---
APPROVED REPORT EKG Measurement Heart [id number] 120P83 [id number] <Conclusion> Sinus rhythm with premature atrial complexes Left anterior fascicular block Nonspecific ST and T wave abnormality Abnormal ECG
--- NOTE | 2017-12-18 23:35 | CARD ---
APPROVED REPORT EKG Measurement Heart [id number] [id number] <Conclusion> Normal sinus rhythm Left anterior fascicular block Nonspecific ST and T wave abnormality Abnormal ECG
--- NOTE | 2017-12-18 23:54 | CP.PCM.PN ---
Subjective - Date & Time of Evaluation Date of Evaluation: 12/18/17 Time of Evaluation: 18:45 - Subjective Subjective: The patient seen and examined, some cough, less short of breath wbcs coming down Respiratory distress without BiPAP Awake/confused Afebrile Being treated for C. difficile colitis Objective - Vital Signs/Intake and Output Vital Signs (last 24 hours): Temp Pulse Resp BP Pulse Ox 98.2 F 82 32 H 103/66 100 12/18/17 20:00 12/18/17 22:30 12/18/17 20:00 12/18/17 20:00 12/18/17 20:00 Intake and Output: 12/18/17 12/19/17 18:59 06:59 Intake Total 1350 500 Output Total 295 120 Balance 1055 380 - Medications Medications: Current Medications Albuterol/Ipratropium (Duoneb 3 Mg/0.5 Mg (3 Ml) Ud) 3 ml INH RQ6 [facility] Last Admin: 12/18/17 19:53 Dose: 3 ml Aspirin (Aspirin Chewable) 81 mg PO DAILY [facility] Last Admin: 12/18/17 09:51 Dose: 81 mg Cilostazol (Pletal) 100 mg PO DAILY [facility] Last Admin: 12/18/17 09:51 Dose: 100 mg Diltiazem HCl (Cardizem) 30 mg NG Q6H [facility] Last Admin: 12/18/17 23:49 Dose: 30 mg Enoxaparin Sodium (Lovenox) 30 mg SC DAILY [facility] Last Admin: 12/18/17 09:50 Dose: 30 mg Metronidazole (Flagyl) 500 mg in 100 mls @ 100 mls/hr IVPB Q8 [facility] PRN Reason: Protocol Last Admin: 12/18/17 21:27 Dose: 100 mls/hr Potassium Chloride/Dextrose/Sod Cl (Potassium Chl 40 Meq In D5-1/2ns) 1,000 mls @ 100 mls/hr IV .Q10H [facility] Last Admin: 12/18/17 21:52 Dose: 100 mls/hr Piperacillin Sod/Tazobactam Sod (Zosyn 2.25 Gm Iv Premix) 2.25 gm in 50 mls @ 100 mls/hr IVPB Q8H [facility] PRN Reason: Protocol Last Admin: 12/18/17 21:32 Dose: 100 mls/hr Levothyroxine Sodium (Synthroid) 100 mcg PO 0630 [facility] Last Admin: 12/18/17 06:01 Dose: 100 mcg Methylprednisolone (Solu-Medrol) 40 mg IV DAILY [facility] Last Admin: 12/18/17 09:51 Dose: 40 mg Pantoprazole Sodium (Protonix Inj) 40 mg IVP DAILY [facility] Last Admin: 12/18/17 12:17 Dose: 40 mg Potassium Phos/Sodium Phos (Neutra-Phos) 1 pkt PO BID [facility] Stop: 12/21/17 18:00 Last Admin: 12/18/17 17:56 Dose: 1 pkt Rosuvastatin Calcium (Crestor) 10 mg PO HS [facility] Last Admin: 12/18/17 21:27 Dose: 10 mg Saccharomyces Boulardii (Florastor) 250 mg PO BID [facility] Last Admin: 12/18/17 17:59 Dose: 250 mg Vancomycin HCl (Vancocin (Oral Or Rectal Use)) 250 mg PO QID [facility] PRN Reason: Protocol Last Admin: 12/18/17 21:30 Dose: 250 mg Vitamin A (Vitamin A & D Oint Ud Foilpak) 1 ea EXT Q8 PRN PRN Reason: Dry SKIN Last Admin: 12/16/17 10:00 Dose: 1 ea - Labs Labs: 12/18/17 06:42 12/18/17 06:42 PT 14.9 SECONDS (9.7-12.2) H 12/15/17 21:43 INR 1.4 12/15/17 21:43 APTT 28 SECONDS (21-34) 12/15/17 21:43 - Constitutional Appears: No Acute Distress - Head Exam Head Exam: ATRAUMATIC, NORMAL INSPECTION, NORMOCEPHALIC - Eye Exam Eye Exam: EOMI, Normal appearance, PERRL Pupil Exam: NORMAL ACCOMODATION, PERRL - Respiratory Exam Respiratory Exam: Decreased Breath Sounds, Rales, Rhonchi - Cardiovascular Exam Cardiovascular Exam: REGULAR RHYTHM, +S1, +S2. absent: Murmur - GI/Abdominal Exam GI & Abdominal Exam: Soft, Normal Bowel Sounds. absent: Tenderness Assessment and Plan (1) C. difficile colitis Status: Acute (2) Dehydration Status: Acute (3) Septicemia Status: Acute (4) Anxiety Status: Acute (5) Anxiety Status: Acute (6) COPD (chronic obstructive pulmonary disease) Status: Acute (7) Depressed Status: Acute (8) HTN (hypertension) Status: Acute
[2017-12-19] MEDS: Albuterol-Ipratrop 3 mg / 0.5 (3 ml) UD INH SCH ×4 (02:00→19:31)
[2017-12-19] MEDS: Potassium Chl 40 mEq in D5-1/2 1,000 ML IV SCH ×3 (02:00→17:40)
[2017-12-19] MEDS: Piperacill/Tazo 2.25gm in Dex 2.25 GM/50 ML BAG IVPB SCH ×3 (05:38→21:35)
[2017-12-19] MEDS: Levothyroxine 100 MCG TAB PO SCH (05:39)
[2017-12-19] MEDS: metroNIDAZOLE IV 500 mg/100 ml 500 MG/100 ML BAG IVPB SCH ×3 (05:39→21:35)
--- NOTE | 2017-12-19 09:31 | CP.PCM.PN ---
Subjective - Date & Time of Evaluation Date of Evaluation: 12/19/17 Time of Evaluation: 09:29 - Subjective Subjective: confused, on bipap UX=[id number] on IV fluids with K replacement repeat chemistries pending Objective - Vital Signs/Intake and Output Vital Signs (last 24 hours): Temp Pulse Resp BP Pulse Ox 98.2 F 88 58 H 123/72 98 12/19/17 08:00 12/19/17 08:32 12/19/17 08:00 12/19/17 08:00 12/19/17 08:00 Intake and Output: 12/19/17 12/19/17 06:59 18:59 Intake Total 1800 200 Output Total 695 40 Balance 1105 160 - Medications Medications: Current Medications Albuterol/Ipratropium (Duoneb 3 Mg/0.5 Mg (3 Ml) Ud) 3 ml INH RQ6 [facility] Last Admin: 12/19/17 07:21 Dose: 3 ml Aspirin (Aspirin Chewable) 81 mg PO DAILY [facility] Last Admin: 12/18/17 09:51 Dose: 81 mg Cilostazol (Pletal) 100 mg PO DAILY [facility] Last Admin: 12/18/17 09:51 Dose: 100 mg Diltiazem HCl (Cardizem) 30 mg NG Q6H [facility] Last Admin: 12/19/17 05:37 Dose: 30 mg Enoxaparin Sodium (Lovenox) 30 mg SC DAILY [facility] Last Admin: 12/18/17 09:50 Dose: 30 mg Metronidazole (Flagyl) 500 mg in 100 mls @ 100 mls/hr IVPB Q8 [facility] PRN Reason: Protocol Last Admin: 12/19/17 05:39 Dose: 100 mls/hr Potassium Chloride/Dextrose/Sod Cl (Potassium Chl 40 Meq In D5-1/2ns) 1,000 mls @ 100 mls/hr IV .Q10H [facility] Last Admin: 12/19/17 02:00 Dose: Not Given Piperacillin Sod/Tazobactam Sod (Zosyn 2.25 Gm Iv Premix) 2.25 gm in 50 mls @ 100 mls/hr IVPB Q8H [facility] PRN Reason: Protocol Last Admin: 12/19/17 05:38 Dose: 100 mls/hr Levothyroxine Sodium (Synthroid) 100 mcg PO 0630 [facility] Last Admin: 12/19/17 05:39 Dose: 100 mcg Methylprednisolone (Solu-Medrol) 40 mg IV DAILY [facility] Last Admin: 12/18/17 09:51 Dose: 40 mg Pantoprazole Sodium (Protonix Inj) 40 mg IVP DAILY [facility] Last Admin: 12/18/17 12:17 Dose: 40 mg Potassium Phos/Sodium Phos (Neutra-Phos) 1 pkt PO BID [facility] Stop: 12/21/17 18:00 Last Admin: 12/18/17 17:56 Dose: 1 pkt Rosuvastatin Calcium (Crestor) 10 mg PO HS [facility] Last Admin: 12/18/17 21:27 Dose: 10 mg Saccharomyces Boulardii (Florastor) 250 mg PO BID [facility] Last Admin: 12/18/17 17:59 Dose: 250 mg Vancomycin HCl (Vancocin (Oral Or Rectal Use)) 250 mg PO QID [facility] PRN Reason: Protocol Last Admin: 12/18/17 21:30 Dose: 250 mg Vitamin A (Vitamin A & D Oint Ud Foilpak) 1 ea EXT Q8 PRN PRN Reason: Dry SKIN Last Admin: 12/16/17 10:00 Dose: 1 ea - Labs Labs: 12/18/17 06:42 12/18/17 06:42 PT 14.9 SECONDS (9.7-12.2) H 12/15/17 21:43 INR 1.4 12/15/17 21:43 APTT 28 SECONDS (21-34) 12/15/17 21:43 - Constitutional Appears: Agitated, Confused, Chronically Ill - Head Exam Head Exam: ATRAUMATIC, NORMAL INSPECTION - Eye Exam Eye Exam: EOMI, Normal appearance - Neck Exam Neck Exam: Normal Inspection. absent: Tenderness - Respiratory Exam Respiratory Exam: Rhonchi, Respiratory Distress - Cardiovascular Exam Cardiovascular Exam: REGULAR RHYTHM, +S1 - GI/Abdominal Exam GI & Abdominal Exam: Soft. absent: Tenderness - Extremities Exam Extremities Exam: Normal Inspection. absent: Tenderness - Neurological Exam Neurological Exam: Altered - Skin Skin Exam: Dry, Warm Assessment and Plan (1) MAYUR (acute kidney injury) Status: Acute (2) Hypernatremia Status: Acute (3) Atrial fibrillation with rapid ventricular response Status: Acute (4) C. difficile colitis Status: Acute (5) COPD (chronic obstructive pulmonary disease) Status: Acute - Assessment and Plan (Free Text) Plan: follow up chemistries- check renal function, lytes if Na increases would change to D5W fluids IV
[2017-12-19] MEDS: Potassium & Sodium Phosphate PO SCH ×2 (10:50→17:38)
[2017-12-19] MEDS: MethylPREDNISolone 40 mg Vial IV SCH (10:50)
[2017-12-19] MEDS: Enoxaparin 30 mg Syringe SC SCH (10:50)
[2017-12-19] MEDS: Vancomycin 125 MG/5 ML SOLN (ORAL/RECTAL) PO SCH ×4 (10:50→21:43)
[2017-12-19] MEDS: Saccharomyces Boulardi 250 mg Cap PO SCH ×2 (10:50→17:38)
[2017-12-19] MEDS: Cilostazol 100 mg Tab UD PO SCH (10:50)
--- NOTE | 2017-12-19 11:22 | RAD ---
HISTORY: PICC placement COMPARISON: Chest radiograph dated 12/15/2017. FINDINGS: LUNGS: No active pulmonary disease. PLEURA: No significant pleural effusion identified, no pneumothorax apparent. CARDIOVASCULAR: Atherosclerotic aortic calcifications. Cardiomediastinal silhouette within normal limits. OSSEOUS STRUCTURES: Unchanged. VISUALIZED UPPER ABDOMEN: Normal. OTHER FINDINGS: New right upper extremity PICC with catheter tip in the distal SVC. Enteric tube tip in the stomach. IMPRESSION: No active disease. PICC and enteric tube in satisfactory position.
--- NOTE | 2017-12-19 14:32 | CP.PCM.PN ---
Subjective - Date & Time of Evaluation Date of Evaluation: 12/19/17 Time of Evaluation: 14:32 - Subjective Subjective: CHIEF COMPLAINTS TODAY : AFEBRILE. More awake, +VE LIQUIDS STOOLSIN FLEXISEAL nonverbal ROS. on observation only. HEENT : N. Resp : No cough, wheezing ,pleuritic CP ,or hemoptysis Cardio : No anginal CP, PND, orthopnea, palpitation GI : No abd.pain, n/v ,diarrhea or GI bleeding . 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 Musculoskel : No joint swelling , Derm : No rash Psych : Normal affect. Ext : No swelling ,calf pain PE. Pt. is awake in no distress.confused V.S As noted in the chart Head ,ear nose,throat and eyes : Normal. Neck : Supple with normal carotids. Lungs: DIMINISHED BREATH SOUNDS AT THE BASES Heart : S1 & S2 IRREGULAR.. Abd : Soft non tender with normal bowel sounds. Neuro : Moves all ext. with no localized deficit. Ext : No edema with intact pulses.Non tender calves Derm : No rashes or decubitus ulcer. LABS/RADIOLOGY: wbc DECREASING TO 12.5 H/H 10.2 31.7 L.FTS -NORMAL NA 151 cREATININE 0.8/bun IMPROVING TO 20. Objective - Vital Signs/Intake and Output Vital Signs (last 24 hours): Temp Pulse Resp BP Pulse Ox 98.1 F 84 15 127/72 100 12/19/17 12:00 12/19/17 13:57 12/19/17 12:00 12/19/17 12:00 12/19/17 12:00 Intake and Output: 12/19/17 12/19/17 06:59 18:59 Intake Total 1800 850 Output Total 695 200 Balance 1105 650 - Medications Medications: Current Medications Albuterol/Ipratropium (Duoneb 3 Mg/0.5 Mg (3 Ml) Ud) 3 ml INH RQ6 [facility] Last Admin: 12/19/17 13:57 Dose: Not Given Aspirin (Aspirin Chewable) 81 mg PO DAILY [facility] Last Admin: 12/19/17 10:50 Dose: 81 mg Cilostazol (Pletal) 100 mg PO DAILY [facility] Last Admin: 12/19/17 10:50 Dose: 100 mg Diltiazem HCl (Cardizem) 30 mg NG Q6H [facility] Last Admin: 12/19/17 11:22 Dose: 30 mg Enoxaparin Sodium (Lovenox) 30 mg SC DAILY [facility] Last Admin: 12/19/17 10:50 Dose: 30 mg Metronidazole (Flagyl) 500 mg in 100 mls @ 100 mls/hr IVPB Q8 [facility] PRN Reason: Protocol Last Admin: 12/19/17 14:18 Dose: 100 mls/hr Potassium Chloride/Dextrose/Sod Cl (Potassium Chl 40 Meq In D5-1/2ns) 1,000 mls @ 100 mls/hr IV .Q10H [facility] Last Admin: 12/19/17 10:51 Dose: 100 mls/hr Piperacillin Sod/Tazobactam Sod (Zosyn 2.25 Gm Iv Premix) 2.25 gm in 50 mls @ 100 mls/hr IVPB Q8H [facility] PRN Reason: Protocol Last Admin: 12/19/17 14:18 Dose: 100 mls/hr Levothyroxine Sodium (Synthroid) 100 mcg PO 0630 [facility] Last Admin: 12/19/17 05:39 Dose: 100 mcg Methylprednisolone (Solu-Medrol) 40 mg IV DAILY [facility] Last Admin: 12/19/17 10:50 Dose: 40 mg Pantoprazole Sodium (Protonix Inj) 40 mg IVP DAILY [facility] Last Admin: 12/19/17 10:50 Dose: 40 mg Potassium Phos/Sodium Phos (Neutra-Phos) 1 pkt PO BID [facility] Stop: 12/21/17 18:00 Last Admin: 12/19/17 10:50 Dose: 1 pkt Rosuvastatin Calcium (Crestor) 10 mg PO HS [facility] Last Admin: 12/18/17 21:27 Dose: 10 mg Saccharomyces Boulardii (Florastor) 250 mg PO BID [facility] Last Admin: 12/19/17 10:50 Dose: 250 mg Vancomycin HCl (Vancocin (Oral Or Rectal Use)) 250 mg PO QID [facility] PRN Reason: Protocol Last Admin: 12/19/17 14:19 Dose: 250 mg Vitamin A (Vitamin A & D Oint Ud Foilpak) 1 ea EXT Q8 PRN PRN Reason: Dry SKIN Last Admin: 12/16/17 10:00 Dose: 1 ea - Labs Labs: 12/18/17 06:42 12/18/17 06:42 PT 14.9 SECONDS (9.7-12.2) H 12/15/17 21:43 INR 1.4 12/15/17 21:43 APTT 28 SECONDS (21-34) 12/15/17 21:43 Assessment and Plan (1) Pneumonia Assessment & Plan: CONTINUE ON ZOSYN 2.25 EVERY 8 HOURLY 12/18/17 CONTINUE iv fLAGYL 500 MG EVERY 8 HOURLY ORDERED.12/16/17. INCREASE PO VANCOMYCIN 250 BY MOUTH 4 TIMES A DAY.12/18/17. 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 difficile colitis Assessment & Plan: PATIENT POSITIVE FOR C. DIFFICILE TOXIN. CONTINUE iv fLAGYL 500 EVERY 8 HOURLY 12/15/17 BY MOUTH VANCOMYCIN 250 BY MOUTH 4 TIMES A DAY .12/18/17 CONTACT AND ENTERIC PRECAUTIONS. Status: Acute (3) Dehydration Status: Acute (4) Hypernatremia Status: Acute (5) Atrial fibrillation with rapid ventricular response Status: Acute (6) Breast mass, left Assessment & Plan: US OF LEFT BREAST. - P Status: Acute
--- NOTE | 2017-12-19 15:33 | CP.PCM.PN ---
Subjective - Date & Time of Evaluation Date of Evaluation: 12/19/17 Time of Evaluation: 10:00 - Subjective Subjective: patient seen and examined Patient remains on BiPAP Confused and lethargic afebrile Objective - Vital Signs/Intake and Output Vital Signs (last 24 hours): Temp Pulse Resp BP Pulse Ox 98.1 F 84 15 127/72 100 12/19/17 12:00 12/19/17 13:57 12/19/17 12:00 12/19/17 12:00 12/19/17 12:00 Intake and Output: 12/19/17 12/19/17 06:59 18:59 Intake Total 1800 850 Output Total 695 200 Balance 1105 650 - Medications Medications: Current Medications Albuterol/Ipratropium (Duoneb 3 Mg/0.5 Mg (3 Ml) Ud) 3 ml INH RQ6 [facility] Last Admin: 12/19/17 13:57 Dose: Not Given Aspirin (Aspirin Chewable) 81 mg PO DAILY [facility] Last Admin: 12/19/17 10:50 Dose: 81 mg Cilostazol (Pletal) 100 mg PO DAILY [facility] Last Admin: 12/19/17 10:50 Dose: 100 mg Diltiazem HCl (Cardizem) 30 mg NG Q6H [facility] Last Admin: 12/19/17 11:22 Dose: 30 mg Enoxaparin Sodium (Lovenox) 30 mg SC DAILY [facility] Last Admin: 12/19/17 10:50 Dose: 30 mg Metronidazole (Flagyl) 500 mg in 100 mls @ 100 mls/hr IVPB Q8 [facility] PRN Reason: Protocol Last Admin: 12/19/17 14:18 Dose: 100 mls/hr Potassium Chloride/Dextrose/Sod Cl (Potassium Chl 40 Meq In D5-1/2ns) 1,000 mls @ 100 mls/hr IV .Q10H [facility] Last Admin: 12/19/17 10:51 Dose: 100 mls/hr Piperacillin Sod/Tazobactam Sod (Zosyn 2.25 Gm Iv Premix) 2.25 gm in 50 mls @ 100 mls/hr IVPB Q8H [facility] PRN Reason: Protocol Last Admin: 12/19/17 14:18 Dose: 100 mls/hr Levothyroxine Sodium (Synthroid) 100 mcg PO 0630 [facility] Last Admin: 12/19/17 05:39 Dose: 100 mcg Methylprednisolone (Solu-Medrol) 40 mg IV DAILY [facility] Last Admin: 12/19/17 10:50 Dose: 40 mg Pantoprazole Sodium (Protonix Inj) 40 mg IVP DAILY [facility] Last Admin: 12/19/17 10:50 Dose: 40 mg Potassium Phos/Sodium Phos (Neutra-Phos) 1 pkt PO BID [facility] Stop: 12/21/17 18:00 Last Admin: 12/19/17 10:50 Dose: 1 pkt Rosuvastatin Calcium (Crestor) 10 mg PO HS [facility] Last Admin: 12/18/17 21:27 Dose: 10 mg Saccharomyces Boulardii (Florastor) 250 mg PO BID [facility] Last Admin: 12/19/17 10:50 Dose: 250 mg Vancomycin HCl (Vancocin (Oral Or Rectal Use)) 250 mg PO QID [facility] PRN Reason: Protocol Last Admin: 12/19/17 14:19 Dose: 250 mg Vitamin A (Vitamin A & D Oint Ud Foilpak) 1 ea EXT Q8 PRN PRN Reason: Dry SKIN Last Admin: 12/16/17 10:00 Dose: 1 ea - Labs Labs: 12/18/17 06:42 12/18/17 06:42 PT 14.9 SECONDS (9.7-12.2) H 12/15/17 21:43 INR 1.4 12/15/17 21:43 APTT 28 SECONDS (21-34) 12/15/17 21:43 - Head Exam Head Exam: ATRAUMATIC, NORMOCEPHALIC - ENT Exam ENT Exam: Mucous Membranes Dry - Neck Exam Neck Exam: Normal Inspection - Respiratory Exam Respiratory Exam: Decreased Breath Sounds - Cardiovascular Exam Cardiovascular Exam: Tachycardia, Irregular Rhythm - GI/Abdominal Exam GI & Abdominal Exam: Normal Bowel Sounds Assessment and Plan (1) C. difficile colitis Assessment & Plan: continue antibiotics Status: Acute (2) COPD exacerbation Assessment & Plan: nebulizer treatment Continue BiPAP Steroids Status: Acute (3) Dehydration Status: Acute
[2017-12-19 18:30] LABS: URINE BILIRUBIN NEGATIVE (NEGATIVE); URINE BLOOD 1+ (NEGATIVE); URINE CLARITY Hazy (Clear); URINE COLOR Straw (YELLOW); URINE GLUCOSE (UA) NORMAL (Normal); URINE LEUKOCYTE ESTERASE 3+ Leu/uL (Negative); URINE PROTEIN NEGATIVE (NEGATIVE); URINE UROBILINOGEN NORMAL mg/dL (0.2-1.0)
--- NOTE | 2017-12-19 22:57 | PN ---
DATE: 12/19/2017 SUBJECTIVE: The patient is currently restless, but on BiPAP. Monitor revealed sinus rhythm with frequent APCs. PHYSICAL EXAMINATION: VITAL SIGNS: Blood pressure 127/72, heart rate 71, temperature 98.1, respirations 15. HEENT: Pale conjunctivae. CHEST: Bilateral rhonchi. HEART: S1 and S2 regular. ABDOMEN: Soft. EXTREMITIES: Significant muscle wasting. LABORATORY DATA: Blood culture is negative after a few days and urine culture is positive for Enterococcus faecalis. ASSESSMENT: 1. Paroxysmal atrial fibrillation, and multifocal atrial tachycardia. 2. Enterococcus faecalis urinary tract infection. 3. Chronic obstructive lung disease. 4. Borderline troponin elevation. 5. Improved dehydration and hypernatremia. 6. Hypothyroidism. 7. Hypomagnesemia. RECOMMENDATIONS: Continue current aspirin 81 mg once a day, Cardizem at 30 mg every 6 hours via nasogastric tube, IV Flagyl 500 mg every 8 hours, subcutaneous Lovenox 15 mg once a day, Neutra-Phos 1 pack twice a day, Pletal at 100 mg daily, Solu-Medrol 40 mg intravenously daily, vancomycin at 250 mg 4 times a day via nasogastric tube, Zosyn 2.25 gm intravenously every 8 hours. I will obtain BMP, CBC, and magnesium level in a.m. Tru Vinson MD
[2017-12-20] MEDS: Albuterol-Ipratrop 3 mg / 0.5 (3 ml) UD INH SCH ×5 (02:16→19:55)
[2017-12-20] MEDS: Piperacill/Tazo 2.25gm in Dex 2.25 GM/50 ML BAG IVPB SCH ×3 (05:10→21:56)
[2017-12-20] MEDS: Levothyroxine 100 MCG TAB PO SCH (05:48)
[2017-12-20] MEDS: metroNIDAZOLE IV 500 mg/100 ml 500 MG/100 ML BAG IVPB SCH ×3 (05:49→22:00)
[2017-12-20 06:23] LABS: BLOOD UREA NITROGEN 12 mg/dL (7-17); CALCIUM 7.8 mg/dl (8.6-10.4); GFR AFRICAN-AMERICAN > 60; GFR NON-AFRICAN AMERICAN > 60
[2017-12-20] MEDS: Potassium Chl 40 mEq in D5-1/2 1,000 ML IV SCH ×3 (08:00→22:00)
--- NOTE | 2017-12-20 08:29 | CP.PCM.PN ---
Subjective - Date & Time of Evaluation Date of Evaluation: 12/20/17 Time of Evaluation: 08:27 - Subjective Subjective: appears same UO adequate renal function, lytes stabilizing Objective - Vital Signs/Intake and Output Vital Signs (last 24 hours): Temp Pulse Resp BP Pulse Ox 97.9 F 99 H 26 H 108/75 100 12/20/17 04:00 12/20/17 06:00 12/20/17 06:00 12/20/17 04:00 12/20/17 06:00 Intake and Output: 12/20/17 12/20/17 06:59 18:59 Intake Total 100 Output Total 920 Balance -820 - Medications Medications: Current Medications Albuterol/Ipratropium (Duoneb 3 Mg/0.5 Mg (3 Ml) Ud) 3 ml INH RQ6 [facility] Last Admin: 12/20/17 07:50 Dose: 3 ml Aspirin (Aspirin Chewable) 81 mg PO DAILY [facility] Last Admin: 12/19/17 10:50 Dose: 81 mg Cilostazol (Pletal) 100 mg PO DAILY [facility] Last Admin: 12/19/17 10:50 Dose: 100 mg Diltiazem HCl (Cardizem) 30 mg NG Q6H [facility] Last Admin: 12/20/17 05:48 Dose: 30 mg Enoxaparin Sodium (Lovenox) 30 mg SC DAILY [facility] Last Admin: 12/19/17 10:50 Dose: 30 mg Metronidazole (Flagyl) 500 mg in 100 mls @ 100 mls/hr IVPB Q8 [facility] PRN Reason: Protocol Last Admin: 12/20/17 05:49 Dose: 100 mls/hr Potassium Chloride/Dextrose/Sod Cl (Potassium Chl 40 Meq In D5-1/2ns) 1,000 mls @ 100 mls/hr IV .Q10H [facility] Last Admin: 12/19/17 17:40 Dose: Not Given Piperacillin Sod/Tazobactam Sod (Zosyn 2.25 Gm Iv Premix) 2.25 gm in 50 mls @ 100 mls/hr IVPB Q8H [facility] PRN Reason: Protocol Last Admin: 12/20/17 05:10 Dose: 100 mls/hr Levothyroxine Sodium (Synthroid) 100 mcg PO 0630 [facility] Last Admin: 12/20/17 05:48 Dose: 100 mcg Methylprednisolone (Solu-Medrol) 40 mg IV DAILY [facility] Last Admin: 12/19/17 10:50 Dose: 40 mg Pantoprazole Sodium (Protonix Inj) 40 mg IVP DAILY [facility] Last Admin: 12/19/17 10:50 Dose: 40 mg Potassium Phos/Sodium Phos (Neutra-Phos) 1 pkt PO BID [facility] Stop: 12/21/17 18:00 Last Admin: 12/19/17 17:38 Dose: 1 pkt Rosuvastatin Calcium (Crestor) 10 mg PO HS [facility] Last Admin: 12/19/17 21:35 Dose: 10 mg Saccharomyces Boulardii (Florastor) 250 mg PO BID [facility] Last Admin: 12/19/17 17:38 Dose: 250 mg Vancomycin HCl (Vancocin (Oral Or Rectal Use)) 250 mg PO QID [facility] PRN Reason: Protocol Last Admin: 12/19/17 21:43 Dose: 250 mg Vitamin A (Vitamin A & D Oint Ud Foilpak) 1 ea EXT Q8 PRN PRN Reason: Dry SKIN Last Admin: 12/16/17 10:00 Dose: 1 ea - Labs Labs: 12/18/17 06:42 12/20/17 06:00 PT 14.9 SECONDS (9.7-12.2) H 12/15/17 21:43 INR 1.4 12/15/17 21:43 APTT 28 SECONDS (21-34) 12/15/17 21:43 - Constitutional Appears: No Acute Distress, Chronically Ill - Head Exam Head Exam: ATRAUMATIC, NORMAL INSPECTION - Eye Exam Eye Exam: EOMI, Normal appearance - Neck Exam Neck Exam: Normal Inspection. absent: Tenderness - Respiratory Exam Respiratory Exam: Clear to Ausculation Bilateral, NORMAL BREATHING PATTERN - Cardiovascular Exam Cardiovascular Exam: Irregular Rhythm, +S1 - GI/Abdominal Exam GI & Abdominal Exam: Soft. absent: Tenderness - Extremities Exam Extremities Exam: Normal Inspection. absent: Tenderness - Neurological Exam Neurological Exam: Awake, CN II-XII Intact - Skin Skin Exam: Dry, Warm Assessment and Plan (1) MAYUR (acute kidney injury) Status: Resolved (2) Hypernatremia Status: Resolved (3) Atrial fibrillation with rapid ventricular response Status: Acute (4) C. difficile colitis Status: Acute (5) COPD (chronic obstructive pulmonary disease) Status: Acute - Assessment and Plan (Free Text) Plan: hypernatremia, MAYUR resolved- will see again as needed
[2017-12-20] MEDS: Saccharomyces Boulardi 250 mg Cap PO SCH ×2 (10:12→17:21)
[2017-12-20] MEDS: Potassium & Sodium Phosphate PO SCH ×2 (10:12→17:21)
[2017-12-20] MEDS: MethylPREDNISolone 40 mg Vial IV SCH (10:12)
[2017-12-20] MEDS: Enoxaparin 30 mg Syringe SC SCH (10:13)
[2017-12-20] MEDS: Vitamins A & D Oint UD Foilpak EXT PRN (10:14)
[2017-12-20] MEDS: Cilostazol 100 mg Tab UD PO SCH (10:14)
[2017-12-20] MEDS: Vancomycin 125 MG/5 ML SOLN (ORAL/RECTAL) PO SCH ×4 (10:48→22:08)
[2017-12-20] MEDS: Magnesium Sulfate 1 gm in D5W 1 GM/100 ML BAG IVPB SCH ×2 (14:30→14:32)
--- NOTE | 2017-12-20 17:27 | CP.PCM.PN ---
Subjective - Date & Time of Evaluation Date of Evaluation: 12/20/17 Time of Evaluation: 14:00 - Subjective Subjective: patient seen and examined Open eyes to stimuli Patient is off BiPAP Tolerating NG tube feeding Afebrile Being treated for C. difficile colit Objective - Vital Signs/Intake and Output Vital Signs (last 24 hours): Temp Pulse Resp BP Pulse Ox 97.7 F 109 H 22 113/63 98 12/20/17 08:00 12/20/17 14:00 12/20/17 14:00 12/20/17 11:48 12/20/17 14:00 Intake and Output: 12/20/17 12/20/17 06:59 18:59 Intake Total 100 1070 Output Total 920 Balance -820 1070 - Medications Medications: Current Medications Albuterol/Ipratropium (Duoneb 3 Mg/0.5 Mg (3 Ml) Ud) 3 ml INH RQ6 [facility] Last Admin: 12/20/17 13:41 Dose: Not Given Aspirin (Aspirin Chewable) 81 mg PO DAILY [facility] Last Admin: 12/20/17 10:12 Dose: 81 mg Cilostazol (Pletal) 100 mg PO DAILY [facility] Last Admin: 12/20/17 10:14 Dose: 100 mg Diltiazem HCl (Cardizem) 30 mg NG Q6H [facility] Last Admin: 12/20/17 11:43 Dose: 30 mg Enoxaparin Sodium (Lovenox) 30 mg SC DAILY [facility] Last Admin: 12/20/17 10:13 Dose: 30 mg Metronidazole (Flagyl) 500 mg in 100 mls @ 100 mls/hr IVPB Q8 [facility] PRN Reason: Protocol Last Admin: 12/20/17 14:01 Dose: 100 mls/hr Piperacillin Sod/Tazobactam Sod (Zosyn 2.25 Gm Iv Premix) 2.25 gm in 50 mls @ 100 mls/hr IVPB Q8H [facility] PRN Reason: Protocol Last Admin: 12/20/17 14:02 Dose: 100 mls/hr Potassium Chloride/Dextrose/Sod Cl (Potassium Chl 40 Meq In D5-1/2ns) 1,000 mls @ 100 mls/hr IV .Q10H [facility] Last Admin: 12/20/17 12:06 Dose: 100 mls/hr Levothyroxine Sodium (Synthroid) 100 mcg PO 0630 [facility] Last Admin: 12/20/17 05:48 Dose: 100 mcg Methylprednisolone (Solu-Medrol) 40 mg IV DAILY [facility] Last Admin: 12/20/17 10:12 Dose: 40 mg Pantoprazole Sodium (Protonix Inj) 40 mg IVP DAILY [facility] Last Admin: 12/20/17 10:13 Dose: 40 mg Potassium Phos/Sodium Phos (Neutra-Phos) 1 pkt PO BID [facility] Stop: 12/21/17 18:00 Last Admin: 12/20/17 10:12 Dose: 1 pkt Rosuvastatin Calcium (Crestor) 10 mg PO HS [facility] Last Admin: 12/19/17 21:35 Dose: 10 mg Saccharomyces Boulardii (Florastor) 250 mg PO BID [facility] Last Admin: 12/20/17 10:12 Dose: 250 mg Vancomycin HCl (Vancocin (Oral Or Rectal Use)) 250 mg PO QID [facility] PRN Reason: Protocol Last Admin: 12/20/17 14:01 Dose: 250 mg Vitamin A (Vitamin A & D Oint Ud Foilpak) 1 ea EXT Q8 PRN PRN Reason: Dry SKIN Last Admin: 12/20/17 10:14 Dose: 1 ea - Labs Labs: 12/18/17 06:42 12/20/17 06:00 PT 14.9 SECONDS (9.7-12.2) H 12/15/17 21:43 INR 1.4 12/15/17 21:43 APTT 28 SECONDS (21-34) 12/15/17 21:43 - Head Exam Head Exam: ATRAUMATIC, NORMOCEPHALIC - ENT Exam ENT Exam: Mucous Membranes Moist - Neck Exam Neck Exam: Normal Inspection - Respiratory Exam Respiratory Exam: Decreased Breath Sounds - Cardiovascular Exam Cardiovascular Exam: Irregular Rhythm - GI/Abdominal Exam GI & Abdominal Exam: Soft, Normal Bowel Sounds Assessment and Plan (1) C. difficile colitis Assessment & Plan: Continue antibiotics Status: Acute (2) COPD exacerbation Assessment & Plan: tapering steroids BiPAP as needed Nebulizer treatment Status: Acute (3) Dehydration Status: Acute
--- NOTE | 2017-12-20 19:57 | PN ---
DATE: 12/20/2017 SUBJECTIVE: The patient is less agitated. The son is at the bedside. She is on BiPAP and reason is sinus tachycardia with frequent PVCs. No reports of hypotension. PHYSICAL EXAMINATION: VITAL SIGNS: Blood pressure 110/68, heart rate 99, temperature 97.7. HEENT: Pale conjunctivae. CHEST: Diffused bilateral rhonchi. HEART: S1, S2 regular. EXTREMITIES: Significant muscle wasting. LABORATORY DATA: Today's SMA-7: Sodium 138, potassium 3.6, chloride 112, CO2 of 18, glucose 108, BUN 12, creatinine 0.7. Blood culture is negative after four days. ASSESSMENT: 1. Gram-negative infection with Enterococcus faecalis. 2. Borderline troponin elevation. 3. Paroxysmal atrial fibrillation. 5. Chronic obstructive lung disease. 6. Hypothyroidism. 7. Hypomagnesemia. The patient's magnesium level today is 1.3. RECOMMENDATIONS: Continue aspirin 81 mg once a day, Cardizem at 30 mg every 6 hours, Crestor 10 mg once a day, IV Flagyl 500 mg every 8 hours, Lovenox mg once a day, Pletal at 100 mg daily, Neutra-Phos one packet twice a day, Zosyn at 2.25 gm intravenously every 8 hours, vancomycin at 250 mg p.o. q.i.d., Synthroid 100 mcg once a day, Solu-Medrol 40 mg intravenously daily. I will start magnesium sulphate replacement with 2 gm a day. Tru Vinson MD
--- NOTE | 2017-12-20 23:57 | CP.PCM.PN ---
Subjective - Date & Time of Evaluation Date of Evaluation: 12/20/17 Time of Evaluation: 23:56 - Subjective Subjective: CHIEF COMPLAINTS TODAY : AFEBRILE. AWAKE, +VE LIQUIDS STOOLSIN FLEXISEAL nonverbal ROS. on observation only. HEENT : N. Resp : No cough, wheezing ,pleuritic CP ,or hemoptysis Cardio : No anginal CP, PND, orthopnea, palpitation GI : No abd.pain, n/v ,diarrhea or GI bleeding . 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 Musculoskel : No joint swelling , Derm : No rash Psych : Normal affect. Ext : No swelling ,calf pain PE. Pt. is awake in no distress.confused V.S As noted in the chart Head ,ear nose,throat and eyes : Normal. Neck : Supple with normal carotids. Lungs: DIMINISHED BREATH SOUNDS AT THE BASES Heart : S1 & S2 IRREGULAR.. Abd : Soft non tender with normal bowel sounds. Neuro : Moves all ext. with no localized deficit. Ext : No edema with intact pulses.Non tender calves Derm : No rashes or decubitus ulcer. LABS/RADIOLOGY: wbc DECREASING TO 12.5 H/H 10.2 31.7 L.FTS -NORMAL NA 151 cREATININE 0.8/bun IMPROVING TO 20. Objective - Vital Signs/Intake and Output Vital Signs (last 24 hours): Temp Pulse Resp BP Pulse Ox 98.8 F 96 H 18 101/59 L 100 12/20/17 20:00 12/20/17 22:00 12/20/17 22:00 12/20/17 20:00 12/20/17 22:00 Intake and Output: 12/20/17 12/21/17 18:59 06:59 Intake Total 2020 940 Output Total 1080 Balance 940 940 - Medications Medications: Current Medications Albuterol/Ipratropium (Duoneb 3 Mg/0.5 Mg (3 Ml) Ud) 3 ml INH RQ6 [facility] Last Admin: 12/20/17 19:55 Dose: Not Given Aspirin (Aspirin Chewable) 81 mg PO DAILY [facility] Last Admin: 12/20/17 10:12 Dose: 81 mg Cilostazol (Pletal) 100 mg PO DAILY [facility] Last Admin: 12/20/17 10:14 Dose: 100 mg Diltiazem HCl (Cardizem) 30 mg NG Q6H [facility] Last Admin: 12/20/17 17:21 Dose: 30 mg Enoxaparin Sodium (Lovenox) 30 mg SC DAILY [facility] Last Admin: 12/20/17 10:13 Dose: 30 mg Metronidazole (Flagyl) 500 mg in 100 mls @ 100 mls/hr IVPB Q8 [facility] PRN Reason: Protocol Last Admin: 12/20/17 22:00 Dose: 100 mls/hr Piperacillin Sod/Tazobactam Sod (Zosyn 2.25 Gm Iv Premix) 2.25 gm in 50 mls @ 100 mls/hr IVPB Q8H [facility] PRN Reason: Protocol Last Admin: 12/20/17 21:56 Dose: 100 mls/hr Potassium Chloride/Dextrose/Sod Cl (Potassium Chl 40 Meq In D5-1/2ns) 1,000 mls @ 100 mls/hr IV .Q10H [facility] Last Admin: 12/20/17 22:00 Dose: Not Given Levothyroxine Sodium (Synthroid) 100 mcg PO 0630 [facility] Last Admin: 12/20/17 05:48 Dose: 100 mcg Methylprednisolone (Solu-Medrol) 40 mg IV DAILY [facility] Last Admin: 12/20/17 10:12 Dose: 40 mg Pantoprazole Sodium (Protonix Inj) 40 mg IVP DAILY [facility] Last Admin: 12/20/17 10:13 Dose: 40 mg Potassium Phos/Sodium Phos (Neutra-Phos) 1 pkt PO BID [facility] Stop: 12/21/17 18:00 Last Admin: 12/20/17 17:21 Dose: 1 pkt Rosuvastatin Calcium (Crestor) 10 mg PO HS [facility] Last Admin: 12/20/17 21:58 Dose: 10 mg Saccharomyces Boulardii (Florastor) 250 mg PO BID [facility] Last Admin: 12/20/17 17:21 Dose: 250 mg Vancomycin HCl (Vancocin (Oral Or Rectal Use)) 250 mg PO QID [facility] PRN Reason: Protocol Last Admin: 12/20/17 22:08 Dose: 250 mg Vitamin A (Vitamin A & D Oint Ud Foilpak) 1 ea EXT Q8 PRN PRN Reason: Dry SKIN Last Admin: 12/20/17 10:14 Dose: 1 ea - Labs Labs: 12/18/17 06:42 12/20/17 06:00 PT 14.9 SECONDS (9.7-12.2) H 12/15/17 21:43 INR 1.4 12/15/17 21:43 APTT 28 SECONDS (21-34) 12/15/17 21:43 Assessment and Plan (1) Pneumonia Assessment & Plan: continue IV Zosyn 2.25 every 8 hourly .Follow-up cultures to adjust antibiotics Status: Acute (2) C. difficile colitis Assessment & Plan: PATIENT POSITIVE FOR C. DIFFICILE TOXIN. CONTINUE iv fLAGYL 500 EVERY 8 HOURLY 12/15/17 BY MOUTH VANCOMYCIN 250 BY MOUTH 4 TIMES A DAY .12/18/17 CONTACT AND ENTERIC PRECAUTIONS. Status: Acute (3) Dehydration Status: Acute (4) Hypernatremia Assessment & Plan: iv FLUIDS PER CULINARY ASSISTANT Status: Resolved (5) Atrial fibrillation with rapid ventricular response Status: Acute (6) Breast mass, left Status: Acute (7) UTI (urinary tract infection) Assessment & Plan: URINE CULTURES 12/16 18 +VE ENTEROCOCCUS FAECALIS S-AMPICILLIN CONTINUE iv zOSYN 2.25 EVERY 8 HOURLY . OFF IV rOCEPHIN Status: Acute
[2017-12-21] MEDS: Albuterol-Ipratrop 3 mg / 0.5 (3 ml) UD INH SCH ×2 (01:01→13:33)
[2017-12-21] MEDS: Potassium Chl 40 mEq in D5-1/2 1,000 ML IV SCH ×3 (01:02→17:16)
[2017-12-21] MEDS: Levothyroxine 100 MCG TAB PO SCH (05:38)
[2017-12-21] MEDS: metroNIDAZOLE IV 500 mg/100 ml 500 MG/100 ML BAG IVPB SCH ×2 (05:38→13:25)
[2017-12-21] MEDS: Piperacill/Tazo 2.25gm in Dex 2.25 GM/50 ML BAG IVPB SCH ×2 (05:41→14:27)
[2017-12-21] MEDS: Enoxaparin 30 mg Syringe SC SCH (09:27)
[2017-12-21] MEDS: Cilostazol 100 mg Tab UD PO SCH (09:28)
[2017-12-21] MEDS: Potassium & Sodium Phosphate PO SCH ×2 (09:28→17:13)
[2017-12-21] MEDS: Saccharomyces Boulardi 250 mg Cap PO SCH ×2 (09:28→17:11)
[2017-12-21] MEDS: Vancomycin 125 MG/5 ML SOLN (ORAL/RECTAL) PO SCH ×4 (09:28→23:00)
[2017-12-21] MEDS: MethylPREDNISolone 40 mg Vial IV SCH (10:15)
--- NOTE | 2017-12-21 10:25 | CP.PCM.CON ---
History of Present Illness - History of Present Illness History of Present Illness: Patient is a 82 yo female admitted from [place] with abnormal blood work. On admission patient found with C Diff, E coli in the urine, TRPI 0.1300, electrolyte imbalance, WBC 12.5 and Hb 10.2. Diagnosed with pneumonia per CXR and A Fib as per EK. Zosyn IV, Flagyl IV, Vanco IV on board. To ICU for further care. PMH: dementia, anxiety, CHF,COPD, HTN Soc. Hx: , LTC resident, son Srikanth safety person [phone] Fam. Hx: unavailable from patient Review of Systems - Constitutional Constitutional: Weakness - EENT Eyes: absent: As Per HPI, Blind Spots, Blurred Vision, Change in Vision, Decreased Night Vision, Diplopia, Discharge, Dry Eye, Exophthalmos, Floaters, Irritation, Itchy Eyes, Loss of Peripheral Vision, Pain, Photophobia, Requires Corrective Lenses, Sees Flashes, Spots in Vision, Tunnel Vision, Other Visual Disturbances, Loss of Vision, Other Ears: absent: As Per HPI, Decreased Hearing, Ear Discharge, Ear Pain, Tinnitus, Abnormal Hearing, Disequilibrium, Dizziness, Other Nose/Mouth/Throat: absent: As Per HPI, Epistaxis, Nasal Congestion, Nasal Discharge, Nasal Obstruction, Nasal Trauma, Nose Pain, Post Nasal Drip, Sinus Pain, Sinus Pressure, Bleeding Gums, Change in Voice, Dental Pain, Dry Mouth, Dysphagia, Halitosis, Hoarsness, Lip Swelling, Mouth Lesions, Mouth Pain, Odynophagia, Sore Throat, Throat Swelling, Tongue Swelling, Facial Pain, Neck Pain, Neck Mass, Other - Breasts Breasts: absent: As Per HPI, Change in Shape, Mass, Pain, Nipple Discharge, Nipple Inversion, Skin Changes, Swelling, Other - Cardiovascular Cardiovascular: Dyspnea - Respiratory Respiratory: Dyspnea - Gastrointestinal Gastrointestinal: Loose Stools - Genitourinary Genitourinary: Urinary Incontinence - Reproductive: Female Reproductive:Female: Post Menopausal - Menstruation Menstruation: Post Menopausal - Musculoskeletal Musculoskeletal: Muscle Weakness - Integumentary Integumentary: Dry Skin - Neurological Neurological: Weakness - Psychiatric Psychiatric: Anxiety - Endocrine Endocrine: absent: As Per HPI, Change in Body Appearance, Change in Libido, Cold Intolorance, Deepening of Voice, Excessive Sweating, Fatigue, Flushing, Heat Intolorance, Increase in Ring/Shoe/Hat Size, Palpitations, Polydipsia, Polyphagia, Polyuria, Other - Hematologic/Lymphatic Hematologic: absent: As Per HPI, Easy Bleeding, Easy Bruising, Lymphadenopathy, Other Past Patient History - Infectious Disease Hx of Infectious Diseases: None - Past Medical History & Family History Past Medical History?: Yes - Past Social History Smoking Status: Former Smoker - CARDIAC Hx Congestive Heart Failure: Yes Hx Hypertension: Yes - PULMONARY Hx Chronic Obstructive Pulmonary Disease (COPD): Yes Hx Emphysema: Yes - NEUROLOGICAL Hx Neurological Disorder: No Hx Paralysis: No - HEENT Hx HEENT Problems: No - ENDOCRINE/METABOLIC Hx Hypothyroidism: Yes - HEMATOLOGICAL/ONCOLOGICAL Hx Blood Disorders: No Hx Blood Transfusions: No Hx Cancer: Yes ("STOMACH") - INTEGUMENTARY Hx Dermatological Problems: No - MUSCULOSKELETAL/RHEUMATOLOGICAL Hx Arthritis: Yes (B/L KNEES) - GASTROINTESTINAL Hx Gastrointestinal Disorders: No - GENITOURINARY/GYNECOLOGICAL Hx Genitourinary Disorders: No - PSYCHIATRIC Hx Anxiety: Yes Hx Substance Use: No - SURGICAL HISTORY Hx Surgeries: Yes Other/Comment: insertion of vascular stents (01/31). "STOMACH CANCER SURGERY" - ANESTHESIA Hx Anesthesia: Yes Hx Anesthesia Reactions: No Hx Malignant Hyperthermia: No Meds Allergies/Adverse Reactions: Allergies Allergy/AdvReac Type Severity Reaction Status Date / Time No Known Allergies Allergy Verified 11/18/17 14:12 - Medications Medications: Current Medications Aspirin (Aspirin Chewable) 81 mg PO DAILY [facility] Last Admin: 12/21/17 09:28 Dose: 81 mg Cilostazol (Pletal) 100 mg PO DAILY [facility] Last Admin: 12/21/17 09:28 Dose: 100 mg Diltiazem HCl (Cardizem) 30 mg NG Q6H [facility] Last Admin: 12/21/17 05:38 Dose: 30 mg Enoxaparin Sodium (Lovenox) 30 mg SC DAILY [facility] Last Admin: 12/21/17 09:27 Dose: 30 mg Metronidazole (Flagyl) 500 mg in 100 mls @ 100 mls/hr IVPB Q8 [facility] PRN Reason: Protocol Last Admin: 12/21/17 05:38 Dose: 100 mls/hr Piperacillin Sod/Tazobactam Sod (Zosyn 2.25 Gm Iv Premix) 2.25 gm in 50 mls @ 100 mls/hr IVPB Q8H [facility] PRN Reason: Protocol Last Admin: 12/21/17 05:41 Dose: 100 mls/hr Potassium Chloride/Dextrose/Sod Cl (Potassium Chl 40 Meq In D5-1/2ns) 1,000 mls @ 100 mls/hr IV .Q10H [facility] Last Admin: 12/20/17 22:00 Dose: Not Given Levothyroxine Sodium (Synthroid) 100 mcg PO 0630 [facility] Last Admin: 12/21/17 05:38 Dose: 100 mcg Methylprednisolone (Solu-Medrol) 40 mg IV DAILY [facility] Last Admin: 12/20/17 10:12 Dose: 40 mg Pantoprazole Sodium (Protonix Inj) 40 mg IVP DAILY [facility] Last Admin: 12/21/17 09:27 Dose: 40 mg Potassium Phos/Sodium Phos (Neutra-Phos) 1 pkt PO BID [facility] Stop: 12/21/17 18:00 Last Admin: 12/21/17 09:28 Dose: 1 pkt Rosuvastatin Calcium (Crestor) 10 mg PO HS [facility] Last Admin: 12/20/17 21:58 Dose: 10 mg Saccharomyces Boulardii (Florastor) 250 mg PO BID [facility] Last Admin: 12/21/17 09:28 Dose: 250 mg Vancomycin HCl (Vancocin (Oral Or Rectal Use)) 250 mg PO QID [facility] PRN Reason: Protocol Last Admin: 12/21/17 09:28 Dose: 250 mg Vitamin A (Vitamin A & D Oint Ud Foilpak) 1 ea EXT Q8 PRN PRN Reason: Dry SKIN Last Admin: 12/20/17 10:14 Dose: 1 ea Physical Exam - Constitutional Appears: Chronically Ill - Head Exam Head Exam: ATRAUMATIC, NORMAL INSPECTION, NORMOCEPHALIC - Eye Exam Eye Exam: EOMI, Normal appearance, PERRL Pupil Exam: NORMAL ACCOMODATION, PERRL - ENT Exam ENT Exam: Mucous Membranes Dry, Normal Exam Additional comments: NGT for feedings - Neck Exam Neck exam: Positive for: Normal Inspection - Respiratory Exam Respiratory Exam: Decreased Breath Sounds Additional comments: Complains of SOB - Cardiovascular Exam Cardiovascular Exam: Tachycardia, Irregular Rhythm - GI/Abdominal Exam GI & Abdominal Exam: Hyperactive Bowel Sounds - Rectal Exam Rectal Exam: Deferred - Extremities Exam Extremities exam: Positive for: pedal edema - Back Exam Back exam: NORMAL INSPECTION - Neurological Exam Neurological exam: Alert, Altered - Psychiatric Exam Psychiatric exam: Anxious - Skin Skin Exam: Normal Color, Warm Results - Vital Signs Recent Vital Signs: Last Vital Signs Temp 98.2 F 12/21/17 08:00 Pulse 95 H 12/21/17 08:00 Resp 20 12/21/17 08:00 BP 99/65 L 12/21/17 08:00 Pulse Ox 97 12/21/17 08:00 - Labs Result Diagrams: 12/18/17 06:42 12/20/17 06:00 Assessment & Plan - Assessment and Plan (Free Text) Assessment: Palliative consult Full Code, there is no advance directive on chart, PPS 10% reviewed medical records, all diagnostic studies, examined and interviewed patient in the bed. Patent is alert with some confusion. Patient knew she was at the hospital and knew her son's name. Speech is soft Patient repeqating " help me, help me". When asked what help she needed with, patient responded could not breath. O2Sat 97 % , 2l O2 via NC on. RR 20 regular, diminished breath sounds, no cough noted. Solumedrol and Neb Tx n board. NGT in for feedings and meds. Hyperactive bowel sounds. Stool loose and dark green. Rectal tube n place. Patient moves all 4 extremities, but unable to reposition in bed on her own, what puts her at risk for pressure sore. BP 99/65, HR 97, afebrle. IV antibiotics on board. Interview with patient was limited due to patient's condition. I've been trying to reach her son Fabio for days. Per RN this morning,son has not been in for a visit. I called again this morning and left voice mal asking for family meeting. Impression * Chronically ill lady with intermittent SOB in need for O2 supply , 2nd to pneumonia and sepsis * Generalized weakness * Patient is unable to participate in meaningful discussion re goals of care * Patient's wishes for end of life care are not known * Patient's son is difficult to reach Suggestion * O2 Supplement * Oral care * Aspiration precaution * promote skin integrity I will continue search for patient's son to discuss Code status.
--- NOTE | 2017-12-21 16:03 | CP.PCM.PN ---
Subjective - Date & Time of Evaluation Date of Evaluation: 12/21/17 Time of Evaluation: 10:55 - Subjective Subjective: patient seen and examined Off BiPAP Responsive Still having diarrhea Patient DNR/DNI Objective - Vital Signs/Intake and Output Vital Signs (last 24 hours): Temp Pulse Resp BP Pulse Ox 98.4 F 108 H 21 101/65 97 12/21/17 12:00 12/21/17 12:00 12/21/17 12:00 12/21/17 12:00 12/21/17 12:00 Intake and Output: 12/21/17 12/21/17 06:59 18:59 Intake Total 2040 2920 Output Total 400 1025 Balance 1640 1895 - Medications Medications: Current Medications Albuterol/Ipratropium (Duoneb 3 Mg/0.5 Mg (3 Ml) Ud) 3 ml INH RQ6 [facility] Last Admin: 12/21/17 13:33 Dose: 3 ml Aspirin (Aspirin Chewable) 81 mg PO DAILY [facility] Last Admin: 12/21/17 09:28 Dose: 81 mg Cilostazol (Pletal) 100 mg PO DAILY [facility] Last Admin: 12/21/17 09:28 Dose: 100 mg Diltiazem HCl (Cardizem) 30 mg NG Q6H [facility] Last Admin: 12/21/17 11:54 Dose: 30 mg Enoxaparin Sodium (Lovenox) 30 mg SC DAILY [facility] Last Admin: 12/21/17 09:27 Dose: 30 mg Piperacillin Sod/Tazobactam Sod (Zosyn 2.25 Gm Iv Premix) 2.25 gm in 50 mls @ 100 mls/hr IVPB Q8H [facility] PRN Reason: Protocol Last Admin: 12/21/17 14:27 Dose: 100 mls/hr Potassium Chloride/Dextrose/Sod Cl (Potassium Chl 40 Meq In D5-1/2ns) 1,000 mls @ 100 mls/hr IV .Q10H [facility] Last Admin: 12/21/17 11:57 Dose: 100 mls/hr Levothyroxine Sodium (Synthroid) 100 mcg PO 0630 [facility] Last Admin: 12/21/17 05:38 Dose: 100 mcg Magnesium Chloride (Slow-Mag) 64 mg PO DAILY [facility] Methylprednisolone (Solu-Medrol) 40 mg IV DAILY [facility] Last Admin: 12/21/17 10:15 Dose: 40 mg Pantoprazole Sodium (Protonix Inj) 40 mg IVP DAILY [facility] Last Admin: 12/21/17 09:27 Dose: 40 mg Potassium Phos/Sodium Phos (Neutra-Phos) 1 pkt PO BID [facility] Stop: 12/21/17 18:00 Last Admin: 12/21/17 09:28 Dose: 1 pkt Rosuvastatin Calcium (Crestor) 10 mg PO HS [facility] Last Admin: 12/20/17 21:58 Dose: 10 mg Saccharomyces Boulardii (Florastor) 250 mg PO BID [facility] Last Admin: 12/21/17 09:28 Dose: 250 mg Vancomycin HCl (Vancocin (Oral Or Rectal Use)) 250 mg PO QID [facility] PRN Reason: Protocol Last Admin: 12/21/17 13:24 Dose: 250 mg Vitamin A (Vitamin A & D Oint Ud Foilpak) 1 ea EXT Q8 PRN PRN Reason: Dry SKIN Last Admin: 12/20/17 10:14 Dose: 1 ea - Labs Labs: 12/18/17 06:42 12/20/17 06:00 PT 14.9 SECONDS (9.7-12.2) H 12/15/17 21:43 INR 1.4 12/15/17 21:43 APTT 28 SECONDS (21-34) 12/15/17 21:43 - Head Exam Head Exam: ATRAUMATIC, NORMOCEPHALIC - ENT Exam ENT Exam: Mucous Membranes Dry - Neck Exam Neck Exam: Normal Inspection - Respiratory Exam Respiratory Exam: Decreased Breath Sounds - Cardiovascular Exam Cardiovascular Exam: Irregular Rhythm - GI/Abdominal Exam GI & Abdominal Exam: Soft, Normal Bowel Sounds Assessment and Plan (1) C. difficile colitis Assessment & Plan: Continue antibiotics as per ID Status: Acute (2) COPD exacerbation Assessment & Plan: continue nebulizer treatment BiPAP as needed DNR/DNI Status: Acute (3) Dehydration Status: Acute
--- NOTE | 2017-12-21 19:04 | PN ---
DATE: 12/21/2017 SUBJECTIVE: The patient is comfortable. When asked for chest pain or abdominal pain, the patient denied and was able to communicate. Monitor reveals sinus rhythm with frequent AVCs. PHYSICAL EXAMINATION: VITAL SIGNS: Blood pressure 99/65, heart rate 95, temperature 98.2, respirations 20. HEENT: Normocephalic. CHEST: Bilateral rhonchi. HEART: S1 and S2 regular. ABDOMEN: Soft. EXTREMITIES: No edema. ASSESSMENT: 1. Exacerbation of chronic obstructive lung disease. 2. Hypomagnesemia and . 3. Borderline troponin elevation. 4. Anemia. 5. Paroxysmal atrial tachycardia. RECOMMENDATIONS: Continue aspirin 81 mg once a day, Cardizem 30 mg every 6 hours, Crestor 10 mg once a day, Flagyl 500 mg intravenously every 8 hours, Lovenox 30 mg subcutaneously once a day, Neutra-Phos one packet twice a day, Pletal 200 mg once a day, Protonix 40 mg intravenously daily, Solu-Medrol 40 mg intravenously daily, vancomycin 250 mg q.i.d., Zosyn 2.25 gm intravenously every 8 hours, start one tablet daily, and obtain a followup BNP and magnesium level in the a.m. The patient is awaiting telemetry transfer. Tru Vinson MD
[2017-12-21] MEDS: Magnesium Sulfate 1 gm/100 mL D5W IVPB SCH ×2 (22:20→22:59)
--- NOTE | 2017-12-21 23:43 | CP.PCM.PN ---
Subjective - Date & Time of Evaluation Date of Evaluation: 12/21/17 Time of Evaluation: 23:43 - Subjective Subjective: CHIEF COMPLAINTS TODAY : AFEBRILE. AWAKE, OFF BIPAP STILL WITH DIARRHEA +VE LIQUIDS STOOLSIN FLEXISEAL nonverbal ROS. on observation only. HEENT : N. Resp : No cough, wheezing ,pleuritic CP ,or hemoptysis Cardio : No anginal CP, PND, orthopnea, palpitation GI : No abd.pain, n/v ,diarrhea or GI bleeding . [employer] : No headache, vertigo, focal deficit. Musculoskel : No joint swelling , Derm : No rash Psych : Normal affect. Ext : No swelling ,calf pain PE. Pt. is awake in no distress.confused V.S As noted in the chart Head ,ear nose,throat and eyes : Normal. Neck : Supple with normal carotids. Lungs: DIMINISHED BREATH SOUNDS AT THE BASES Heart : S1 & S2 IRREGULAR.. Abd : Soft non tender with normal bowel sounds. Neuro : Moves all ext. with no localized deficit. Ext : No edema with intact pulses.Non tender calves Derm : No rashes or decubitus ulcer. LABS/RADIOLOGY: CHEST X-RAY 12/19/17 REPEAT NAD . uRINE CULTURE +VE YEAST 12/19/17 wbc DECREASING TO 12.5 H/H 10.2 31.7 L.FTS -NORMAL NA 151 cREATININE 0.8/bun IMPROVING TO 20. Objective - Vital Signs/Intake and Output Vital Signs (last 24 hours): Temp Pulse Resp BP Pulse Ox 99.8 F H 115 H 22 101/65 97 12/21/17 20:00 12/21/17 20:00 12/21/17 20:00 12/21/17 12:00 12/21/17 12:00 Intake and Output: 12/21/17 12/22/17 18:59 06:59 Intake Total 3670 300 Output Total 1165 Balance 2505 300 - Medications Medications: Current Medications Albuterol/Ipratropium (Duoneb 3 Mg/0.5 Mg (3 Ml) Ud) 3 ml INH RQ6 [facility] Last Admin: 12/21/17 13:33 Dose: 3 ml Aspirin (Aspirin Chewable) 81 mg PO DAILY [facility] Last Admin: 12/21/17 09:28 Dose: 81 mg Diltiazem HCl (Cardizem) 30 mg NG Q6H [facility] Last Admin: 12/21/17 23:03 Dose: 30 mg Enoxaparin Sodium (Lovenox) 30 mg SC DAILY [facility] Last Admin: 12/21/17 09:27 Dose: 30 mg Potassium Chloride/Dextrose/Sod Cl (Potassium Chl 40 Meq In D5-1/2ns) 1,000 mls @ 100 mls/hr IV .Q10H [facility] Last Admin: 12/21/17 17:16 Dose: Not Given Levothyroxine Sodium (Synthroid) 100 mcg PO 0630 [facility] Last Admin: 12/21/17 05:38 Dose: 100 mcg Magnesium Chloride (Slow-Mag) 64 mg PO DAILY [facility] Methylprednisolone (Solu-Medrol) 40 mg IV DAILY [facility] Last Admin: 12/21/17 10:15 Dose: 40 mg Pantoprazole Sodium (Protonix Ec Tab) 40 mg PO DAILY [facility] Rosuvastatin Calcium (Crestor) 10 mg PO HS [facility] Last Admin: 12/21/17 23:00 Dose: 10 mg Saccharomyces Boulardii (Florastor) 250 mg PO BID [facility] Last Admin: 12/21/17 17:11 Dose: 250 mg Vancomycin HCl (Vancocin (Oral Or Rectal Use)) 250 mg PO QID [facility] PRN Reason: Protocol Last Admin: 12/21/17 23:00 Dose: 250 mg Vitamin A (Vitamin A & D Oint Ud Foilpak) 1 ea EXT Q8 PRN PRN Reason: Dry SKIN Last Admin: 12/20/17 10:14 Dose: 1 ea - Labs Labs: 12/18/17 06:42 12/20/17 06:00 PT 14.9 SECONDS (9.7-12.2) H 12/15/17 21:43 INR 1.4 12/15/17 21:43 APTT 28 SECONDS (21-34) 12/15/17 21:43 Assessment and Plan (1) Pneumonia Assessment & Plan: PATIENT'S PNEUMONIA RESOLVED. oFF bIpap DC IV zOSYN IN VIEW OF PERSISTENT DIARRHEA/AND PMC. pULMONARY TOILET SEEN BY PALLIATIVE CARE. PT DNR/DNI. Status: Acute (2) C. difficile colitis Assessment & Plan: DC IV zOSYN PATIENT POSITIVE FOR C. DIFFICILE TOXIN. CONTINUE iv fLAGYL 500 EVERY 8 HOURLY 12/15/17 BY MOUTH VANCOMYCIN 250 BY MOUTH 4 TIMES A DAY .12/18/17 CONTACT AND ENTERIC PRECAUTIONS. Status: Acute (3) Dehydration Status: Acute (4) Hypernatremia Status: Resolved (5) Atrial fibrillation with rapid ventricular response Status: Acute (6) Breast mass, left Status: Acute (7) Candiduria Assessment & Plan: URINE CULTURE 12/19/17 +VE YEAST. ADD IV DIFLUCAN 100MG IV QD DAILY X5DAYS 12/21/17 Status: Acute
[2017-12-22] MEDS: Albuterol-Ipratrop 3 mg / 0.5 (3 ml) UD INH SCH ×4 (01:36→19:25)
[2017-12-22] MEDS: Potassium Chl 40 mEq in D5-1/2 1,000 ML IV SCH ×3 (04:15→15:07)
[2017-12-22] MEDS: Levothyroxine 100 MCG TAB PO SCH (05:52)
[2017-12-22 06:45] LABS: HEMOGLOBIN 8.6 g/dL (11.0-16.0); MEAN CELL VOLUME 89.4 fL (81.0-99.0); MEAN CORPUSCULAR HEMOGLOBIN 29.8 pg (27.0-31.0); MEAN CORPUSCULAR HGB CONC 33.3 g/dL (33.0-37.0); MEAN PLATELET VOLUME 9.2 fL (7.2-11.7); PLATELET COUNT 257 K/uL (130-400); RBC 2.89 Mil/uL (3.80-5.20); RED CELL DISTRIBUTION WIDTH 17.2 % (11.5-14.5); WHITE BLOOD COUNT 15.4 K/uL (4.8-10.8)
[2017-12-22 07:10] LABS: BLOOD UREA NITROGEN 7 mg/dL (7-17); CALCIUM 7.2 mg/dl (8.6-10.4); GFR AFRICAN-AMERICAN > 60; GFR NON-AFRICAN AMERICAN > 60
[2017-12-22] MEDS ORDERED: Pantoprazole 40 mg EC Tab PO SCH (10:00)
[2017-12-22 10:09] LABS: BASO % 0.1 % (0.0-2.0); EOS % 0.2 % (0.0-4.0); LYMPH # 0.4 K/uL (1.0-4.3); LYMPH % 2.5 % (20.0-40.0); MONO # 0.5 K/uL (0.0-0.8); MONO % 3.3 % (0.0-10.0); NEUT # 14.5 K/uL (1.8-7.0); NEUT % 93.9 % (50.0-75.0); NRBC % 0.1 % (0.0-2.0)
[2017-12-22 10:12] LABS: BANDS 4 % (0-2); EOSINOPHIL 1 % (0-4); LYMPHOCYTE 1 % (20-40); METAMYELOCYTE 2 % (0-0); MONOCYTE 1 % (0-10); MYELOCYTE 1 % (0-0); NEUTROPHIL 90 % (50-75); NUCLEATED RED BLOOD CELL 1 % (0-0); PLATELET ESTIMATE NORMAL (NORMAL); TOTAL CELLS COUNTED 100
[2017-12-22] MEDS: Enoxaparin 30 mg Syringe SC SCH (10:12)
[2017-12-22] MEDS: MethylPREDNISolone 40 mg Vial IV SCH (10:12)
[2017-12-22 10:13] LABS: ANISOCYTOSIS SLIGHT
[2017-12-22] MEDS: Vitamins A & D Oint UD Foilpak EXT PRN (10:13)
[2017-12-22] MEDS: Magnesium Chloride 64 mg ER Tab PO SCH (10:13)
[2017-12-22] MEDS: Fluconazole IV 100mg/50 ml NS 50 ML IVPB SCH (10:13)
[2017-12-22] MEDS: Saccharomyces Boulardi 250 mg Cap PO SCH ×2 (10:13→17:51)
[2017-12-22 10:14] LABS: POIKILOCYTOSIS SLIGHT
[2017-12-22] MEDS: Vancomycin 125 MG/5 ML SOLN (ORAL/RECTAL) PO SCH ×4 (10:21→21:04)
--- NOTE | 2017-12-22 11:41 | RAD ---
PROCEDURE: CHEST RADIOGRAPH, 1 VIEW HISTORY: Shortness of breath; b/l rales all bases COMPARISON: 12/19/2017. FINDINGS: The nasogastric tube terminates in the stomach. LUNGS: The right PICC line terminates in the SVC. There is hyperinflation of the right lung. The left lung is well inflated. There is airspace disease in both lower lobes which sharp margin on the left. PLEURA: No pneumothorax or right pleural fluid seen. Small left pleural effusion CARDIOVASCULAR: Normal. OSSEOUS STRUCTURES: No significant abnormalities. VISUALIZED UPPER ABDOMEN: Normal. OTHER FINDINGS: None. IMPRESSION: Right lower lobe airspace disease may represent atelectasis or pneumonia. Suspect left lower lobe atelectasis/ partial collapse S pneumonia. Follow-up is advised.
[2017-12-22 11:48] LABS: B-TYPE NATRIURETIC PEPTIDE 362 pg/mL (0-900)
--- NOTE | 2017-12-22 12:46 | CP.PCM.PN ---
Subjective - Date & Time of Evaluation Date of Evaluation: 12/22/17 Time of Evaluation: 07:40 - Subjective Subjective: HPI: Patient examined this morning at the bedside. Patient is not in acute distress. Patient has improved breathing. Patient is afebrile. Patient is DNI/ DNR ROS: Constitutional: Patient denies fever and chills. Cardiovascular: Patient denies chest pain, palpitations. Respiratory: Patient denies shortness of breath or cough. Gastrointestinal: Patient denies nausea, vomiting, diarrhea. Physical Exam HEENT: Atraumatic, normocephalic, mucuous membranes moist Repiratory: Clear to auscultation bilaterally. No wheezing or rhonchi. No use of accessory muscles. Cardiovascular: +S1/ S2, regular rate and rhythm GI: Normal bowel sounds in all 4 quadrants, no tenderness, no distention Extremities: No LE edema Neurological: Alert, awake, oriented X3 Assessment: 82 year old female with PMHx of CHF, dementia, anxiety, COPD, and HTN. Patient' s exam consistent with COPD and C. difficile colitis which is resolving with treatment. 1. C. difficile colitis Status: Acute - Continue ID antibiotic recommendations 2. COPD Exacerbation Status: Chronic - Albuterol/ Ipratropium 3 ml INH RQ6 - Continue BiPAP as needed Objective - Vital Signs/Intake and Output Vital Signs (last 24 hours): Temp Pulse Resp BP Pulse Ox 98.2 F 86 22 121/69 100 12/22/17 08:00 12/22/17 09:22 12/22/17 08:00 12/22/17 08:00 12/22/17 08:00 Intake and Output: 12/22/17 12/22/17 06:59 18:59 Intake Total 1800 300 Output Total 800 Balance 1000 300 - Medications Medications: Current Medications Albuterol/Ipratropium (Duoneb 3 Mg/0.5 Mg (3 Ml) Ud) 3 ml INH RQ6 [facility] Last Admin: 12/22/17 07:40 Dose: Not Given Aspirin (Aspirin Chewable) 81 mg PO DAILY [facility] Last Admin: 12/22/17 10:12 Dose: 81 mg Diltiazem HCl (Cardizem) 30 mg NG Q6H [facility] Last Admin: 12/22/17 11:27 Dose: 30 mg Enoxaparin Sodium (Lovenox) 30 mg SC DAILY [facility] Last Admin: 12/22/17 10:12 Dose: 30 mg Potassium Chloride/Dextrose/Sod Cl (Potassium Chl 40 Meq In D5-1/2ns) 1,000 mls @ 100 mls/hr IV .Q10H [facility] Last Admin: 12/22/17 04:15 Dose: 100 mls/hr Fluconazole (Diflucan Iv 100 Mg/50 Ml Ns) 50 mls @ 100 mls/hr IVPB Q24H [facility] PRN Reason: Protocol Stop: 12/26/17 10:29 Last Admin: 12/22/17 10:13 Dose: 100 mls/hr Levothyroxine Sodium (Synthroid) 100 mcg PO 0630 [facility] Last Admin: 12/22/17 05:52 Dose: 100 mcg Magnesium Chloride (Slow-Mag) 64 mg PO DAILY [facility] Last Admin: 12/22/17 10:13 Dose: 64 mg Methylprednisolone (Solu-Medrol) 40 mg IV DAILY [facility] Last Admin: 12/22/17 10:12 Dose: 40 mg Pantoprazole Sodium (Protonix Ec Tab) 40 mg PO DAILY [facility] Last Admin: 12/22/17 10:13 Dose: 40 mg Rosuvastatin Calcium (Crestor) 10 mg PO HS [facility] Last Admin: 12/21/17 23:00 Dose: 10 mg Saccharomyces Boulardii (Florastor) 250 mg PO BID [facility] Last Admin: 12/22/17 10:13 Dose: 250 mg Vancomycin HCl (Vancocin (Oral Or Rectal Use)) 250 mg PO QID [facility] PRN Reason: Protocol Last Admin: 12/22/17 10:21 Dose: 250 mg Vitamin A (Vitamin A & D Oint Ud Foilpak) 1 ea EXT Q8 PRN PRN Reason: Dry SKIN Last Admin: 12/22/17 10:13 Dose: 1 ea - Labs Labs: 12/22/17 06:26 12/22/17 06:25 PT 14.9 SECONDS (9.7-12.2) H 12/15/17 21:43 INR 1.4 12/15/17 21:43 APTT 28 SECONDS (21-34) 12/15/17 21:43 Assessment and Plan (1) C. difficile colitis Status: Acute (2) COPD exacerbation Status: Acute (3) Dehydration Status: Acute
--- NOTE | 2017-12-22 15:40 | CP.PCM.PN ---
Subjective - Date & Time of Evaluation Date of Evaluation: 12/22/17 Time of Evaluation: 11:15 - Subjective Subjective: TECHNICAL ADMINISTRATIVE ASSISTANT CALLED BY JOSELIN IVERSON FOR SOB. PT IS SOB AT RR 25/MIN, HR 110-120'S. PT NONVERBAL BUT NODS AND SHAKES HEAD IN RESPONSE TO QUESTIONS. PT ALREADY SEEN BY DR. LUIS THIS MORNING. I NOTIFIED Simone DORSEY IMMEDIATELY OF THIS C/O ALSO AND PER DR. DORSEY DO NOT MAKE ANY CHANGES TO MEDS/INFUSIONS. PT IS DNR/DNI ALREADY. PT HAS BIPAP AT BEDSIDE BUT IS CURRENTLY REFUSING TO HAVE IT APPLIED. ALSO REFUSING NEBULIZER TREATMENT AT THIS TIME. STAT CXR ORDERED, WILL REVIEW REPORT. ORDERED ONE DOSE OF ATIVAN. PT TO BE SEEN BY DR. DORSEY THIS EVENING. NO FURTHER ORDERS. DISCUSSED PLAN AND ORDERS WITH JOSELIN IVERSON AND J[employer]ISH HISTORY PROFESSOR JANET. Objective - Vital Signs/Intake and Output Vital Signs (last 24 hours): Temp Pulse Resp BP Pulse Ox 98.2 F 86 22 121/69 100 12/22/17 08:00 12/22/17 09:22 12/22/17 08:00 12/22/17 08:00 12/22/17 08:00 Intake and Output: 12/22/17 12/22/17 06:59 18:59 Intake Total 1800 300 Output Total 800 Balance 1000 300 - Medications Medications: Current Medications Albuterol/Ipratropium (Duoneb 3 Mg/0.5 Mg (3 Ml) Ud) 3 ml INH RQ6 [facility] Last Admin: 12/22/17 13:30 Dose: Not Given Aspirin (Aspirin Chewable) 81 mg PO DAILY [facility] Last Admin: 12/22/17 10:12 Dose: 81 mg Diltiazem HCl (Cardizem) 30 mg NG Q6H [facility] Last Admin: 12/22/17 11:27 Dose: 30 mg Enoxaparin Sodium (Lovenox) 30 mg SC DAILY [facility] Last Admin: 12/22/17 10:12 Dose: 30 mg Famotidine (Pepcid) 20 mg PO DAILY [facility] Potassium Chloride/Dextrose/Sod Cl (Potassium Chl 40 Meq In D5-1/2ns) 1,000 mls @ 100 mls/hr IV .Q10H [facility] Last Admin: 12/22/17 15:07 Dose: 100 mls/hr Fluconazole (Diflucan Iv 100 Mg/50 Ml Ns) 50 mls @ 100 mls/hr IVPB Q24H [facility] PRN Reason: Protocol Stop: 12/26/17 10:29 Last Admin: 12/22/17 10:13 Dose: 100 mls/hr Levothyroxine Sodium (Synthroid) 100 mcg PO 0630 [facility] Last Admin: 12/22/17 05:52 Dose: 100 mcg Magnesium Chloride (Slow-Mag) 64 mg PO DAILY [facility] Last Admin: 12/22/17 10:13 Dose: 64 mg Methylprednisolone (Solu-Medrol) 40 mg IV DAILY [facility] Last Admin: 12/22/17 10:12 Dose: 40 mg Rosuvastatin Calcium (Crestor) 10 mg PO HS [facility] Last Admin: 12/21/17 23:00 Dose: 10 mg Saccharomyces Boulardii (Florastor) 250 mg PO BID [facility] Last Admin: 12/22/17 10:13 Dose: 250 mg Vancomycin HCl (Vancocin (Oral Or Rectal Use)) 250 mg PO QID [facility] PRN Reason: Protocol Last Admin: 12/22/17 13:47 Dose: 250 mg Vitamin A (Vitamin A & D Oint Ud Foilpak) 1 ea EXT Q8 PRN PRN Reason: Dry SKIN Last Admin: 12/22/17 10:13 Dose: 1 ea - Labs Labs: 12/22/17 06:26 12/22/17 06:25 PT 14.9 SECONDS (9.7-12.2) H 12/15/17 21:43 INR 1.4 12/15/17 21:43 APTT 28 SECONDS (21-34) 12/15/17 21:43
--- NOTE | 2017-12-22 16:18 | CP.PCM.PN ---
Subjective - Date & Time of Evaluation Date of Evaluation: 12/22/17 Time of Evaluation: 16:17 - Subjective Subjective: CHIEF COMPLAINTS TODAY : EVENTS NOTED EPISODE OF SHORTNESS OF BREATH/TACHYPNEA REFUSING bIpap PER RN. CHEST X-RAY 12/22/17 NOTED -/B/L AIRSPACE DISEASE BOTH LOWER LOBES LLL ATELECTASIS/PARTIAL COLLAPSE VERSUS PNEUMONIA. ROS. on observation only. HEENT : N. Resp : +VE SOB,NO wheezing ,pleuritic CP ,or hemoptysis Cardio : No anginal CP, PND, orthopnea, palpitation GI : No abd.pain, n/v ,diarrhea or GI bleeding . 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 Musculoskel : No joint swelling , Derm : No rash Psych : Normal affect. Ext : No swelling ,calf pain PE. Pt. is awake ,PRESENTLY NOT IN ACUTE DISTRESS V.S As noted in the chart Head ,ear nose,throat and eyes : Normal. Neck : Supple with normal carotids. Lungs: DIMINISHED BREATH SOUNDS AT THE BASES Heart : S1 & S2 IRREGULAR.. Abd : Soft non tender with normal bowel sounds. Neuro : Moves all ext. with no localized deficit. Ext : No edema with intact pulses.Non tender calves Derm : No rashes or decubitus ulcer. LABS/RADIOLOGY: CHEST X-RAY 12/19/17 REPEAT NAD . uRINE CULTURE +VE YEAST 12/19/17 WBC 15.4 ELEVATED TODAY H/H 8.6 L.FTS -NORMAL NA 151 cREATININE 0.6/bun IMPROVING TO 7 Objective - Vital Signs/Intake and Output Vital Signs (last 24 hours): Temp Pulse Resp BP Pulse Ox 98.2 F 109 H 25 H 118/75 99 12/22/17 12:00 12/22/17 14:00 12/22/17 14:00 12/22/17 12:00 12/22/17 14:00 Intake and Output: 12/22/17 12/22/17 06:59 18:59 Intake Total 1800 1550 Output Total 800 Balance 1000 1550 - Medications Medications: Current Medications Albuterol/Ipratropium (Duoneb 3 Mg/0.5 Mg (3 Ml) Ud) 3 ml INH RQ6 [facility] Last Admin: 12/22/17 13:30 Dose: Not Given Aspirin (Aspirin Chewable) 81 mg PO DAILY [facility] Last Admin: 12/22/17 10:12 Dose: 81 mg Diltiazem HCl (Cardizem) 30 mg NG Q6H [facility] Last Admin: 12/22/17 11:27 Dose: 30 mg Enoxaparin Sodium (Lovenox) 30 mg SC DAILY [facility] Last Admin: 12/22/17 10:12 Dose: 30 mg Famotidine (Pepcid) 20 mg PO DAILY [facility] Potassium Chloride/Dextrose/Sod Cl (Potassium Chl 40 Meq In D5-1/2ns) 1,000 mls @ 100 mls/hr IV .Q10H [facility] Last Admin: 12/22/17 15:07 Dose: 100 mls/hr Fluconazole (Diflucan Iv 100 Mg/50 Ml Ns) 50 mls @ 100 mls/hr IVPB Q24H [facility] PRN Reason: Protocol Stop: 12/26/17 10:29 Last Admin: 12/22/17 10:13 Dose: 100 mls/hr Levothyroxine Sodium (Synthroid) 100 mcg PO 0630 [facility] Last Admin: 12/22/17 05:52 Dose: 100 mcg Magnesium Chloride (Slow-Mag) 64 mg PO DAILY [facility] Last Admin: 12/22/17 10:13 Dose: 64 mg Methylprednisolone (Solu-Medrol) 40 mg IV DAILY [facility] Last Admin: 12/22/17 10:12 Dose: 40 mg Rosuvastatin Calcium (Crestor) 10 mg PO HS [facility] Last Admin: 12/21/17 23:00 Dose: 10 mg Saccharomyces Boulardii (Florastor) 250 mg PO BID [facility] Last Admin: 12/22/17 10:13 Dose: 250 mg Vancomycin HCl (Vancocin (Oral Or Rectal Use)) 250 mg PO QID [facility] PRN Reason: Protocol Last Admin: 12/22/17 13:47 Dose: 250 mg Vitamin A (Vitamin A & D Oint Ud Foilpak) 1 ea EXT Q8 PRN PRN Reason: Dry SKIN Last Admin: 12/22/17 10:13 Dose: 1 ea - Labs Labs: 12/22/17 06:26 12/22/17 06:25 PT 14.9 SECONDS (9.7-12.2) H 12/15/17 21:43 INR 1.4 12/15/17 21:43 APTT 28 SECONDS (21-34) 12/15/17 21:43 Assessment and Plan (1) Pneumonia Assessment & Plan: PATIENT HAS PNEUMONIA ? ASPIRATION VS ATELECTASIS ADD IV mAXIPEME 1 G EVERY 24 HOURLY 12/22/17. cONTINUE iv fLAGYL 500 EVERY 8 HOURLY. PULMONARY TOILET. PT DNR/DNI NOTED. Status: Acute (2) C. difficile colitis Assessment & Plan: CONTINUE BY MOUTH VANCOMYCIN 250 4 TIMES A DAY cONTINUE iv fLAGYL iv 100 EVERY 8 HOURLY Status: Acute (3) Dehydration Status: Acute (4) Hypernatremia Status: Resolved (5) Atrial fibrillation with rapid ventricular response Status: Acute (6) Breast mass, left Status: Acute (7) Candiduria Assessment & Plan: patient on IV Diflucan 100 mg IV piggyback once a day daily.12/21/17 Status: Acute
[2017-12-22] MEDS: Cefepime IV 1 gm in Dextrose 1 GM/50 ML BAG IVPB SCH (17:48)
[2017-12-22] MEDS: metroNIDAZOLE IV 500 mg/100 ml 500 MG/100 ML BAG IVPB SCH (21:03)
--- NOTE | 2017-12-22 23:08 | CP.PCM.PN ---
Objective - Vital Signs/Intake and Output Vital Signs (last 24 hours): Temp Pulse Resp BP Pulse Ox 98.1 F 94 H 20 124/75 100 12/22/17 20:00 12/22/17 20:00 12/22/17 20:00 12/22/17 19:48 12/22/17 20:00 Intake and Output: 12/22/17 12/23/17 18:59 06:59 Intake Total 2300 300 Output Total 450 Balance 1850 300 - Medications Medications: Current Medications Albuterol/Ipratropium (Duoneb 3 Mg/0.5 Mg (3 Ml) Ud) 3 ml INH RQ6 [facility] Last Admin: 12/22/17 19:25 Dose: Not Given Diltiazem HCl (Cardizem) 30 mg NG Q6H [facility] Last Admin: 12/22/17 17:50 Dose: 30 mg Famotidine (Pepcid) 20 mg PO DAILY [facility] Potassium Chloride/Dextrose/Sod Cl (Potassium Chl 40 Meq In D5-1/2ns) 1,000 mls @ 100 mls/hr IV .Q10H [facility] Last Admin: 12/22/17 15:07 Dose: 100 mls/hr Fluconazole (Diflucan Iv 100 Mg/50 Ml Ns) 50 mls @ 100 mls/hr IVPB Q24H [facility] PRN Reason: Protocol Stop: 12/26/17 10:29 Last Admin: 12/22/17 10:13 Dose: 100 mls/hr Cefepime HCl (Maxipime Iv 1 Gm Premix) 1 gm in 50 mls @ 100 mls/hr IVPB Q24H [facility] PRN Reason: Protocol Last Admin: 12/22/17 17:48 Dose: 100 mls/hr Metronidazole (Flagyl) 500 mg in 100 mls @ 100 mls/hr IVPB Q8 [facility] PRN Reason: Protocol Last Admin: 12/22/17 21:03 Dose: 100 mls/hr Levothyroxine Sodium (Synthroid) 100 mcg PO 0630 [facility] Last Admin: 12/22/17 05:52 Dose: 100 mcg Magnesium Chloride (Slow-Mag) 64 mg PO DAILY [facility] Last Admin: 12/22/17 10:13 Dose: 64 mg Methylprednisolone (Solu-Medrol) 40 mg IV DAILY [facility] Last Admin: 12/22/17 10:12 Dose: 40 mg Rosuvastatin Calcium (Crestor) 10 mg PO HS [facility] Last Admin: 12/22/17 21:04 Dose: 10 mg Saccharomyces Boulardii (Florastor) 250 mg PO BID [facility] Last Admin: 12/22/17 17:51 Dose: 250 mg Vancomycin HCl (Vancocin (Oral Or Rectal Use)) 250 mg PO QID [facility] PRN Reason: Protocol Last Admin: 12/22/17 21:04 Dose: 250 mg Vitamin A (Vitamin A & D Oint Ud Foilpak) 1 ea EXT Q8 PRN PRN Reason: Dry SKIN Last Admin: 12/22/17 10:13 Dose: 1 ea - Labs Labs: 12/22/17 06:26 12/22/17 06:25 PT 14.9 SECONDS (9.7-12.2) H 12/15/17 21:43 INR 1.4 12/15/17 21:43 APTT 28 SECONDS (21-34) 12/15/17 21:43 Assessment and Plan (1) C. difficile colitis Status: Acute (2) Dehydration Status: Acute (3) Septicemia Status: Acute (4) Anxiety Status: Acute (5) COPD (chronic obstructive pulmonary disease) Status: Acute (6) Depressed Status: Acute (7) Diarrhea Status: Acute (8) HTN (hypertension) Status: Acute
[2017-12-23] MEDS: Albuterol-Ipratrop 3 mg / 0.5 (3 ml) UD INH SCH ×4 (01:54→20:57)
--- NOTE | 2017-12-23 04:03 | PN ---
DATE: 12/22/2017 SUBJECTIVE: The patient was anxious before. She developed respiratory distress, and she was asked to replace on BiPAP. The patient refused. The patient is right now calm and quiet. She has some rectal bleeding. So, I am putting aspirin on hold. In the meantime, the patient is not in respiratory distress. The patient is resting comfortably. She has no fever. PHYSICAL EXAMINATION: VITAL SIGNS: Blood pressure 124/70, pulse 80, respiratory rate 19, temperature 98.1. LUNGS: Decreased air entry. CARDIOVASCULAR: S1 and S2 are regular. ABDOMEN: Soft. ASSESSMENT: 1. Chronic obstructive lung disease exacerbation. 2. Urinary tract infection. 3. Clostridium difficile colitis. 4. Hypertension. PLAN: Monitor the patient. Lex Patel MD
[2017-12-23] MEDS: Potassium Chl 40 mEq in D5-1/2 1,000 ML IV SCH ×2 (04:48→10:56)
[2017-12-23] MEDS: metroNIDAZOLE IV 500 mg/100 ml 500 MG/100 ML BAG IVPB SCH ×3 (05:44→21:59)
[2017-12-23] MEDS: Levothyroxine 100 MCG TAB PO SCH (05:55)
[2017-12-23 06:41] LABS: BASO % 0.2 % (0.0-2.0); EOS % 0.2 % (0.0-4.0); HEMOGLOBIN 8.3 g/dL (11.0-16.0); LYMPH # 0.4 K/uL (1.0-4.3); LYMPH % 2.3 % (20.0-40.0); MEAN CELL VOLUME 89.1 fL (81.0-99.0); MEAN CORPUSCULAR HEMOGLOBIN 30.2 pg (27.0-31.0); MEAN CORPUSCULAR HGB CONC 33.9 g/dL (33.0-37.0); MEAN PLATELET VOLUME 9.3 fL (7.2-11.7); MONO # 0.7 K/uL (0.0-0.8); MONO % 4.5 % (0.0-10.0); NEUT # 15.3 K/uL (1.8-7.0); NEUT % 92.8 % (50.0-75.0); NRBC % 0.3 % (0.0-2.0); PLATELET COUNT 275 K/uL (130-400); RBC 2.75 Mil/uL (3.80-5.20); RED CELL DISTRIBUTION WIDTH 17.5 % (11.5-14.5); WHITE BLOOD COUNT 16.5 K/uL (4.8-10.8)
[2017-12-23 06:58] LABS: ALB/GLOB RATIO 0.9 (1.0-2.1); ALBUMIN 1.9 g/dL (3.5-5.0); ALT/SGPT 30 U/L (9-52); AST/SGOT 14 U/L (14-36); BLOOD UREA NITROGEN 7 mg/dL (7-17); CALCIUM 7.4 mg/dl (8.6-10.4); GFR AFRICAN-AMERICAN > 60; GFR NON-AFRICAN AMERICAN > 60
[2017-12-23 09:28] LABS: ANISOCYTOSIS SLIGHT; BANDS 3 % (0-2); EOSINOPHIL 1 % (0-4); LARGE PLATELETS PRESENT; LYMPHOCYTE 2 % (20-40); METAMYELOCYTE 1 % (0-0); MONOCYTE 2 % (0-10); MYELOCYTE 3 % (0-0); NEUTROPHIL 88 % (50-75); NUCLEATED RED BLOOD CELL 2 % (0-0); PLATELET ESTIMATE NORMAL (NORMAL); POIKILOCYTOSIS SLIGHT; TOTAL CELLS COUNTED 100
[2017-12-23 09:29] LABS: BURR CELLS SLIGHT; MICROCYTOSIS SLIGHT; OVALOCYTES SLIGHT; SPHEROCYTES SLIGHT
[2017-12-23 09:30] LABS: ACANTHOCYTES SLIGHT; SCHISTOCYTES SLIGHT; TEARDROP CELLS SLIGHT
[2017-12-23] MEDS: Vancomycin 125 MG/5 ML SOLN (ORAL/RECTAL) PO SCH ×4 (09:32→21:59)
[2017-12-23] MEDS: Fluconazole IV 100mg/50 ml NS 50 ML IVPB SCH (09:32)
[2017-12-23] MEDS: MethylPREDNISolone 40 mg Vial IV SCH (09:34)
[2017-12-23] MEDS: Magnesium Chloride 64 mg ER Tab PO SCH (09:35)
[2017-12-23] MEDS: Saccharomyces Boulardi 250 mg Cap PO SCH ×2 (09:35→17:23)
[2017-12-23] MEDS ORDERED: Vancomycin 125 MG/5 ML SOLN (ORAL/RECTAL) PO SCH (10:00)
[2017-12-23] MEDS: Cefepime IV 1 gm in Dextrose 1 GM/50 ML BAG IVPB SCH (17:24)
[2017-12-23] MEDS: Vitamins A & D Oint UD Foilpak EXT PRN (17:24)
--- NOTE | 2017-12-23 21:38 | CP.PCM.PN ---
Subjective - Date & Time of Evaluation Date of Evaluation: 12/23/17 Time of Evaluation: 18:30 - Subjective Subjective: Pulmonary Follow up; Covering Dr. Greer The Patient was seen and examined at the bedside, Medical records reviewed and management issues were discussed and formulated with the house staff. Events reviewed Awake, comfortable, NAD Improved Respiratory status, OFF BIPAP Breathing unlabored, on 3L NC O2 sat 95%. Pt AAO x3. Alert, No evidence of fluid overload on Exam Denies any chest pain, SOB or Palpitations Afebrile, NSR on the monitor Patient currently on Solu-Medrol 40 mg IVP DAILY and (Atrovent/Albuterol) 0.5 mg IH RQ6 [facility] Will Add Advair Diskus (250/50) 1 puff INH RQ12 HR controlled, on Diltiazem HCl (Cardizem) 30 mg NG Q6H Patient on on Telemetry monitoring, On Contact isolation for C. difficile colitis Objective - Vital Signs/Intake and Output Vital Signs (last 24 hours): Temp Pulse Resp BP Pulse Ox 98.6 F 100 H 19 98/59 L 100 12/23/17 20:00 12/23/17 20:00 12/23/17 20:00 12/23/17 19:48 12/23/17 20:00 Intake and Output: 12/23/17 12/24/17 18:59 06:59 Intake Total 2250 Output Total 1000 Balance 1250 - Medications Medications: Current Medications Albuterol/Ipratropium (Duoneb 3 Mg/0.5 Mg (3 Ml) Ud) 3 ml INH RQ6 [facility] Last Admin: 12/23/17 20:57 Dose: Not Given Diltiazem HCl (Cardizem) 30 mg NG Q6H [facility] Last Admin: 12/23/17 17:23 Dose: 30 mg Famotidine (Pepcid) 20 mg PO DAILY [facility] Last Admin: 12/23/17 09:34 Dose: 20 mg Fluconazole (Diflucan Iv 100 Mg/50 Ml Ns) 50 mls @ 100 mls/hr IVPB Q24H [facility] PRN Reason: Protocol Stop: 12/26/17 10:29 Last Admin: 12/23/17 09:32 Dose: 100 mls/hr Cefepime HCl (Maxipime Iv 1 Gm Premix) 1 gm in 50 mls @ 100 mls/hr IVPB Q24H [facility] PRN Reason: Protocol Last Admin: 12/23/17 17:24 Dose: 100 mls/hr Metronidazole (Flagyl) 500 mg in 100 mls @ 100 mls/hr IVPB Q8 [facility] PRN Reason: Protocol Last Admin: 12/23/17 14:12 Dose: 100 mls/hr Levothyroxine Sodium (Synthroid) 100 mcg PO 0630 [facility] Last Admin: 12/23/17 05:55 Dose: 100 mcg Lorazepam (Ativan) 0.5 mg PO Q8 [facility] Last Admin: 12/23/17 15:59 Dose: 0.5 mg Magnesium Chloride (Slow-Mag) 64 mg PO DAILY [facility] Last Admin: 12/23/17 09:35 Dose: 64 mg Methylprednisolone (Solu-Medrol) 40 mg IV DAILY [facility] Last Admin: 12/23/17 09:34 Dose: 40 mg Rosuvastatin Calcium (Crestor) 10 mg PO HS [facility] Last Admin: 12/22/17 21:04 Dose: 10 mg Saccharomyces Boulardii (Florastor) 250 mg PO BID [facility] Last Admin: 12/23/17 17:23 Dose: 250 mg Vancomycin HCl (Vancocin (Oral Or Rectal Use)) 250 mg PO QID [facility] PRN Reason: Protocol Last Admin: 12/23/17 17:23 Dose: 250 mg Vitamin A (Vitamin A & D Oint Ud Foilpak) 1 ea EXT Q8 PRN PRN Reason: Dry SKIN Last Admin: 12/23/17 17:24 Dose: 1 ea - Labs Labs: 12/23/17 04:00 12/23/17 06:31 PT 14.9 SECONDS (9.7-12.2) H 12/15/17 21:43 INR 1.4 12/15/17 21:43 APTT 28 SECONDS (21-34) 12/15/17 21:43 - Constitutional Appears: Well - Head Exam Head Exam: ATRAUMATIC, NORMAL INSPECTION - ENT Exam ENT Exam: Mucous Membranes Dry - Neck Exam Neck Exam: Full ROM - Respiratory Exam Respiratory Exam: Decreased Breath Sounds, Prolonged Expiratory Phase. absent: Accessory Muscle Use, Chest Wall Tenderness, Rales, Rhonchi, Wheezes - Cardiovascular Exam Cardiovascular Exam: REGULAR RHYTHM, RRR. absent: Bradycardia, Tachycardia, Clicks, JVD - GI/Abdominal Exam GI & Abdominal Exam: Soft, Normal Bowel Sounds. absent: Distended, Firm, Guarding, Rigid, Tenderness - Back Exam Back Exam: absent: CVA tenderness (L), CVA tenderness (R) - Neurological Exam Neurological Exam: Alert, Awake, CN II-XII Intact, Motor Sensory Deficit, Normal Gait, Oriented x3 Assessment and Plan (1) COPD exacerbation Status: Acute (2) Atrial fibrillation with rapid ventricular response Status: Acute (3) C. difficile colitis Status: Acute (4) Pneumonia Status: Acute
--- NOTE | 2017-12-23 23:14 | PN ---
DATE: 12/23/2017 FOLLOWUP NOTE SUBJECTIVE: The patient is comfortable on nasal O2. PHYSICAL EXAMINATION: VITAL SIGNS: Blood pressure 123/73, heart rate 106, temperature 97.9, respirations 18. HEENT: Pale conjunctivae. CHEST: Bilateral rhonchi. HEART: S1 and S2 regular. ABDOMEN: Soft. EXTREMITIES: No edema. LABORATORY DATA: Today's hemoglobin and hematocrit 8.3 and 24.5, white count 16.5, platelet count 175,000. SMA-7, sodium 135, potassium 4, chloride 106, CO2 24, glucose 107, BUN 7, creatinine 0.5. ASSESSMENT: 1. Exacerbation of chronic obstructive lung disease. 2. Borderline troponin elevation. 3. Paroxysmal atrial tachycardia. 4. Anemia. 5. Improved dehydration and prerenal azotemia. 6. Clostridium difficile colitis. RECOMMENDATIONS: Continue Cardizem at 30 mg every 6 hours via nasogastric tube. Continue Crestor 10 mg once a day, IV Diflucan at 100 mg daily, IV Flagyl at 500 mg every 8 hours, IV cefepime at 1 gm daily, Synthroid 100 mcg once a day, Solu-Medrol 40 mg intravenously daily, Slow-Mag at one tablet daily, oral vancomycin 250 mg four times a day. Tru Vinson MD
--- NOTE | 2017-12-23 23:27 | CP.PCM.PN ---
Objective - Vital Signs/Intake and Output Vital Signs (last 24 hours): Temp Pulse Resp BP Pulse Ox 98.6 F 100 H 19 98/59 L 100 12/23/17 20:00 12/23/17 20:00 12/23/17 20:00 12/23/17 19:48 12/23/17 20:00 Intake and Output: 12/23/17 12/24/17 18:59 06:59 Intake Total 2250 Output Total 1000 Balance 1250 - Medications Medications: Current Medications Albuterol/Ipratropium (Duoneb 3 Mg/0.5 Mg (3 Ml) Ud) 3 ml INH RQ6 [facility] Last Admin: 12/23/17 20:57 Dose: Not Given Diltiazem HCl (Cardizem) 30 mg NG Q6H [facility] Last Admin: 12/23/17 17:23 Dose: 30 mg Famotidine (Pepcid) 20 mg PO DAILY [facility] Last Admin: 12/23/17 09:34 Dose: 20 mg Fluconazole (Diflucan Iv 100 Mg/50 Ml Ns) 50 mls @ 100 mls/hr IVPB Q24H [facility] PRN Reason: Protocol Stop: 12/26/17 10:29 Last Admin: 12/23/17 09:32 Dose: 100 mls/hr Cefepime HCl (Maxipime Iv 1 Gm Premix) 1 gm in 50 mls @ 100 mls/hr IVPB Q24H [facility] PRN Reason: Protocol Last Admin: 12/23/17 17:24 Dose: 100 mls/hr Metronidazole (Flagyl) 500 mg in 100 mls @ 100 mls/hr IVPB Q8 [facility] PRN Reason: Protocol Last Admin: 12/23/17 21:59 Dose: 100 mls/hr Levothyroxine Sodium (Synthroid) 100 mcg PO 0630 [facility] Last Admin: 12/23/17 05:55 Dose: 100 mcg Lorazepam (Ativan) 0.5 mg PO Q8 [facility] Last Admin: 12/23/17 22:04 Dose: 0.5 mg Magnesium Chloride (Slow-Mag) 64 mg PO DAILY [facility] Last Admin: 12/23/17 09:35 Dose: 64 mg Methylprednisolone (Solu-Medrol) 40 mg IV DAILY [facility] Last Admin: 12/23/17 09:34 Dose: 40 mg Rosuvastatin Calcium (Crestor) 10 mg PO HS [facility] Last Admin: 12/23/17 22:01 Dose: 10 mg Saccharomyces Boulardii (Florastor) 250 mg PO BID [facility] Last Admin: 12/23/17 17:23 Dose: 250 mg Fluticasone/Salmeterol (Advair Diskus 250/50) 1 puff INH RQ12 [facility] Vancomycin HCl (Vancocin (Oral Or Rectal Use)) 250 mg PO QID [facility] PRN Reason: Protocol Last Admin: 12/23/17 21:59 Dose: 250 mg Vitamin A (Vitamin A & D Oint Ud Foilpak) 1 ea EXT Q8 PRN PRN Reason: Dry SKIN Last Admin: 12/23/17 17:24 Dose: 1 ea - Labs Labs: 12/23/17 04:00 12/23/17 06:31 PT 14.9 SECONDS (9.7-12.2) H 12/15/17 21:43 INR 1.4 12/15/17 21:43 APTT 28 SECONDS (21-34) 12/15/17 21:43 Assessment and Plan (1) C. difficile colitis Status: Acute (2) Dehydration Status: Acute (3) Septicemia Status: Acute (4) Anxiety Status: Acute (5) COPD (chronic obstructive pulmonary disease) Status: Acute (6) Depressed Status: Acute (7) Diarrhea Status: Acute (8) HTN (hypertension) Status: Acute
--- NOTE | 2017-12-23 23:36 | CP.PCM.PN ---
Subjective - Date & Time of Evaluation Date of Evaluation: 12/23/17 Time of Evaluation: 23:35 - Subjective Subjective: CHIEF COMPLAINTS TODAY : AFEBRILE. AWAKE OFF BIPAP. APPEARS COMFORTABLE +VE DIARRHOEA ROS. on observation only. HEENT : N. Resp : +VE SOB,NO wheezing ,pleuritic CP ,or hemoptysis Cardio : No anginal CP, PND, orthopnea, palpitation GI : No abd.pain, n/v ,diarrhea or GI bleeding . 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 Musculoskel : No joint swelling , Derm : No rash Psych : Normal affect. Ext : No swelling ,calf pain PE. Pt. is awake ,PRESENTLY NOT IN ACUTE DISTRESS V.S As noted in the chart Head ,ear nose,throat and eyes : Normal. Neck : Supple with normal carotids. Lungs: DIMINISHED BREATH SOUNDS AT THE BASES Heart : S1 & S2 IRREGULAR.. Abd : Soft non tender with normal bowel sounds. Neuro : Moves all ext. with no localized deficit. Ext : No edema with intact pulses.Non tender calves Derm : No rashes or decubitus ulcer. LABS/RADIOLOGY: CHEST X-RAY 12/22/17 NOTED -/B/L AIRSPACE DISEASE BOTH LOWER LOBES LLL ATELECTASIS/PARTIAL COLLAPSE VERSUS PNEUMONIA. URINE CULTURE +VE YEAST 12/19/17 WBC 16.5 ELEVATED TODAY H/H 8.3/24.5 CREAT 0.5/bun 7. L.FTS -NORMAL NA 151 Objective - Vital Signs/Intake and Output Vital Signs (last 24 hours): Temp Pulse Resp BP Pulse Ox 98.6 F 100 H 19 98/59 L 100 12/23/17 20:00 12/23/17 20:00 12/23/17 20:00 12/23/17 19:48 12/23/17 20:00 Intake and Output: 12/23/17 12/24/17 18:59 06:59 Intake Total 2250 Output Total 1000 Balance 1250 - Medications Medications: Current Medications Albuterol/Ipratropium (Duoneb 3 Mg/0.5 Mg (3 Ml) Ud) 3 ml INH RQ6 [facility] Last Admin: 12/23/17 20:57 Dose: Not Given Diltiazem HCl (Cardizem) 30 mg NG Q6H [facility] Last Admin: 12/23/17 17:23 Dose: 30 mg Famotidine (Pepcid) 20 mg PO DAILY [facility] Last Admin: 12/23/17 09:34 Dose: 20 mg Fluconazole (Diflucan Iv 100 Mg/50 Ml Ns) 50 mls @ 100 mls/hr IVPB Q24H [facility] PRN Reason: Protocol Stop: 12/26/17 10:29 Last Admin: 12/23/17 09:32 Dose: 100 mls/hr Cefepime HCl (Maxipime Iv 1 Gm Premix) 1 gm in 50 mls @ 100 mls/hr IVPB Q24H [facility] PRN Reason: Protocol Last Admin: 12/23/17 17:24 Dose: 100 mls/hr Metronidazole (Flagyl) 500 mg in 100 mls @ 100 mls/hr IVPB Q8 [facility] PRN Reason: Protocol Last Admin: 12/23/17 21:59 Dose: 100 mls/hr Levothyroxine Sodium (Synthroid) 100 mcg PO 0630 [facility] Last Admin: 12/23/17 05:55 Dose: 100 mcg Lorazepam (Ativan) 0.5 mg PO Q8 [facility] Last Admin: 12/23/17 22:04 Dose: 0.5 mg Magnesium Chloride (Slow-Mag) 64 mg PO DAILY [facility] Last Admin: 12/23/17 09:35 Dose: 64 mg Methylprednisolone (Solu-Medrol) 40 mg IV DAILY [facility] Last Admin: 12/23/17 09:34 Dose: 40 mg Rosuvastatin Calcium (Crestor) 10 mg PO HS [facility] Last Admin: 12/23/17 22:01 Dose: 10 mg Saccharomyces Boulardii (Florastor) 250 mg PO BID [facility] Last Admin: 12/23/17 17:23 Dose: 250 mg Fluticasone/Salmeterol (Advair Diskus 250/50) 1 puff INH RQ12 [facility] Vancomycin HCl (Vancocin (Oral Or Rectal Use)) 250 mg PO QID [facility] PRN Reason: Protocol Last Admin: 12/23/17 21:59 Dose: 250 mg Vitamin A (Vitamin A & D Oint Ud Foilpak) 1 ea EXT Q8 PRN PRN Reason: Dry SKIN Last Admin: 12/23/17 17:24 Dose: 1 ea - Labs Labs: 12/23/17 04:00 12/23/17 06:31 PT 14.9 SECONDS (9.7-12.2) H 06/29/18 21:43 INR 1.4 12/15/17 21:43 APTT 28 SECONDS (21-34) 12/15/17 21:43 Assessment and Plan (1) Pneumonia Assessment & Plan: DD IV mAXIPEME 1 G EVERY 24 HOURLY 12/22/17. cONTINUE iv fLAGYL 500 EVERY 8 HOURLY. PULMONARY TOILET. PT DNR/DNI NOTED. Status: Acute (2) C. difficile colitis Assessment & Plan: CONTINUE BY MOUTH VANCOMYCIN 250 4 TIMES A DAY cONTINUE iv fLAGYL iv 100 EVERY 8 HOURLY Status: Acute (3) Dehydration Status: Acute (4) Hypernatremia Status: Resolved (5) Atrial fibrillation with rapid ventricular response Status: Acute (6) Breast mass, left Status: Acute (7) Candiduria Assessment & Plan: CONTINUE iv dIFLUCAN 100 MG od DAILY. Status: Acute
[2017-12-24] MEDS: Albuterol-Ipratrop 3 mg / 0.5 (3 ml) UD INH SCH ×4 (02:13→19:01)
[2017-12-24] MEDS: metroNIDAZOLE IV 500 mg/100 ml 500 MG/100 ML BAG IVPB SCH ×3 (05:53→21:16)
[2017-12-24] MEDS: Levothyroxine 100 MCG TAB PO SCH (05:54)
[2017-12-24 06:18] LABS: BASO % 0.1 % (0.0-2.0); EOS % 0.2 % (0.0-4.0); HEMOGLOBIN 8.3 g/dL (11.0-16.0); LYMPH # 0.5 K/uL (1.0-4.3); LYMPH % 2.7 % (20.0-40.0); MEAN CELL VOLUME 89.9 fL (81.0-99.0); MEAN CORPUSCULAR HEMOGLOBIN 29.2 pg (27.0-31.0); MEAN CORPUSCULAR HGB CONC 32.4 g/dL (33.0-37.0); MONO # 0.8 K/uL (0.0-0.8); MONO % 4.7 % (0.0-10.0); NEUT # 15.5 K/uL (1.8-7.0); NEUT % 92.3 % (50.0-75.0); NRBC % 0.8 % (0.0-2.0); PLATELET COUNT 318 K/uL (130-400); RBC 2.84 Mil/uL (3.80-5.20); RED CELL DISTRIBUTION WIDTH 17.9 % (11.5-14.5); WHITE BLOOD COUNT 16.8 K/uL (4.8-10.8)
[2017-12-24 06:35] LABS: ALT/SGPT 33 U/L (9-52); AST/SGOT 19 U/L (14-36); BLOOD UREA NITROGEN 12 mg/dL (7-17); CALCIUM 7.7 mg/dl (8.6-10.4); GFR AFRICAN-AMERICAN > 60; GFR NON-AFRICAN AMERICAN > 60
[2017-12-24] MEDS: Fluticasone-Salmeterol 250-50mcg Diskus INH SCH ×2 (08:03→19:01)
[2017-12-24 08:11] LABS: BANDS 2 % (0-2); EOSINOPHIL 1 % (0-4); LYMPHOCYTE 4 % (20-40); MONOCYTE 9 % (0-10); MYELOCYTE 3 % (0-0); NEUTROPHIL 81 % (50-75); TOTAL CELLS COUNTED 100
[2017-12-24 08:12] LABS: ANISOCYTOSIS SLIGHT; LARGE PLATELETS PRESENT; OVALOCYTES SLIGHT; PLATELET ESTIMATE NORMAL (NORMAL); POIKILOCYTOSIS SLIGHT
[2017-12-24 08:13] LABS: BURR CELLS SLIGHT; HYPOCHROMIC SLIGHT; MICROCYTOSIS SLIGHT; POLYCHROMIC SLIGHT; SCHISTOCYTES SLIGHT
[2017-12-24 08:14] LABS: ACANTHOCYTES SLIGHT
[2017-12-24] MEDS: Vancomycin 125 MG/5 ML SOLN (ORAL/RECTAL) PO SCH ×4 (09:40→22:00)
[2017-12-24] MEDS: Magnesium Chloride 64 mg ER Tab PO SCH (09:41)
[2017-12-24] MEDS: Saccharomyces Boulardi 250 mg Cap PO SCH ×2 (09:41→17:25)
[2017-12-24] MEDS: MethylPREDNISolone 40 mg Vial IV SCH (09:41)
[2017-12-24] MEDS: Fluconazole IV 100mg/50 ml NS 50 ML IVPB SCH (09:50)
--- NOTE | 2017-12-24 12:46 | CP.PCM.PN ---
Subjective - Date & Time of Evaluation Date of Evaluation: 12/24/17 Time of Evaluation: 11:00 - Subjective Subjective: patient seen and examined Patient is responsive Still has diarrhea and bleeding per rectum Objective - Vital Signs/Intake and Output Vital Signs (last 24 hours): Temp Pulse Resp BP Pulse Ox 98.1 F 101 H 25 H 98/48 L 100 12/24/17 08:00 12/24/17 10:00 12/24/17 07:54 12/24/17 07:54 12/24/17 08:00 Intake and Output: 12/24/17 12/24/17 06:59 18:59 Intake Total 300 100 Balance 300 100 - Medications Medications: Current Medications Albuterol/Ipratropium (Duoneb 3 Mg/0.5 Mg (3 Ml) Ud) 3 ml INH RQ6 [facility] Last Admin: 12/24/17 08:03 Dose: Not Given Diltiazem HCl (Cardizem) 30 mg NG Q6H [facility] Last Admin: 12/24/17 11:43 Dose: 30 mg Fluconazole (Diflucan Iv 100 Mg/50 Ml Ns) 50 mls @ 100 mls/hr IVPB Q24H [facility] PRN Reason: Protocol Stop: 12/26/17 10:29 Last Admin: 12/24/17 09:50 Dose: 100 mls/hr Cefepime HCl (Maxipime Iv 1 Gm Premix) 1 gm in 50 mls @ 100 mls/hr IVPB Q24H [facility] PRN Reason: Protocol Last Admin: 12/23/17 17:24 Dose: 100 mls/hr Metronidazole (Flagyl) 500 mg in 100 mls @ 100 mls/hr IVPB Q8 [facility] PRN Reason: Protocol Last Admin: 12/24/17 05:53 Dose: 100 mls/hr Levothyroxine Sodium (Synthroid) 100 mcg PO 0630 [facility] Last Admin: 12/24/17 05:54 Dose: 100 mcg Lorazepam (Ativan) 0.5 mg PO Q8 [facility] Last Admin: 12/24/17 05:54 Dose: 0.5 mg Magnesium Chloride (Slow-Mag) 64 mg PO DAILY [facility] Last Admin: 12/24/17 09:41 Dose: 64 mg Methylprednisolone (Solu-Medrol) 40 mg IV DAILY [facility] Last Admin: 12/24/17 09:41 Dose: 40 mg Pantoprazole Sodium (Protonix Inj) 40 mg IVP DAILY [facility] Rosuvastatin Calcium (Crestor) 10 mg PO HS [facility] Last Admin: 12/23/17 22:01 Dose: 10 mg Saccharomyces Boulardii (Florastor) 250 mg PO BID [facility] Last Admin: 12/24/17 09:41 Dose: 250 mg Fluticasone/Salmeterol (Advair Diskus 250/50) 1 puff INH RQ12 [facility] Last Admin: 12/24/17 08:03 Dose: Not Given Vancomycin HCl (Vancocin (Oral Or Rectal Use)) 250 mg PO QID [facility] PRN Reason: Protocol Last Admin: 12/24/17 09:40 Dose: 250 mg Vitamin A (Vitamin A & D Oint Ud Foilpak) 1 ea EXT Q8 PRN PRN Reason: Dry SKIN Last Admin: 12/23/17 17:24 Dose: 1 ea - Labs Labs: 12/24/17 06:15 12/24/17 06:12 PT 14.9 SECONDS (9.7-12.2) H 12/15/17 21:43 INR 1.4 12/15/17 21:43 APTT 28 SECONDS (21-34) 12/15/17 21:43 - Head Exam Head Exam: ATRAUMATIC, NORMOCEPHALIC - Neck Exam Neck Exam: Normal Inspection - Respiratory Exam Respiratory Exam: Decreased Breath Sounds - Cardiovascular Exam Cardiovascular Exam: Irregular Rhythm - GI/Abdominal Exam GI & Abdominal Exam: Normal Bowel Sounds Assessment and Plan (1) C. difficile colitis Assessment & Plan: Continue antibiotics Monitor H&H GI evaluation Status: Acute (2) COPD exacerbation Assessment & Plan: Continue nebulizer treatment BiPAP as needed Status: Acute (3) Dehydration Status: Acute
[2017-12-24] MEDS: Cefepime IV 1 gm in Dextrose 1 GM/50 ML BAG IVPB SCH (17:24)
[2017-12-24] MEDS: Cholestyramine 4 gm/Pkt UD PO SCH (17:25)
--- NOTE | 2017-12-24 20:36 | PN ---
DATE: 12/24/2017 SUBJECTIVE: The patient is slightly combative; however, she virtually allowed me to examine her. She is in sinus rhythm with frequent APCs on the monitor. No reported hypotension and no reported respiratory distress. PHYSICAL EXAMINATION: VITAL SIGNS: Blood pressure 100/56, heart rate 99, temperature 98.2, and respirations 21. HEENT: Pale conjunctivae. CHEST: Bilateral rhonchi. HEART: S1 and S2 regular. EXTREMITIES: No edema. LABORATORY DATA: Hemoglobin and hematocrit 8.3 and 25.5, white count 16.8, and platelet count 318,000. SMA-7 is within normal limits except glucose of 107 and creatinine of 0.5. Calcium is within normal limits at 7.7. Total protein is 4 and albumin is 2.0, globulin is 2.0, all are below normal. ASSESSMENT: 1. Borderline troponin elevation. 2. Exacerbation of chronic obstructive lung disease. 3. Paroxysmal atrial tachycardia as well as mild tachycardia. 4. Anemia. 5. Clostridium difficile colitis. 6. Improved hypomagnesemia. RECOMMENDATIONS: Continue current Cartia at 30 mg every 6 hours via nasogastric tube, Crestor 10 mg at bedtime, Diflucan at 100 mg intravenously daily, Flagyl 500 mg intravenously every 8 hours, IV cefepime at 1 gm daily, daily, Slow-Mag at 64 mg daily, rifampin 300 mg twice a day, oral vancomycin 250 mg 4 times a day, and Synthroid at 100 mcg once a day. Tru Vinson MD
[2017-12-24 20:40] LABS: HEMOGLOBIN 7.8 g/dL (11.0-16.0); MEAN CELL VOLUME 89.6 fL (81.0-99.0); MEAN CORPUSCULAR HEMOGLOBIN 29.2 pg (27.0-31.0); MEAN CORPUSCULAR HGB CONC 32.6 g/dL (33.0-37.0); MEAN PLATELET VOLUME 8.5 fL (7.2-11.7); RBC 2.66 Mil/uL (3.80-5.20); RED CELL DISTRIBUTION WIDTH 17.4 % (11.5-14.5); WHITE BLOOD COUNT 18.1 K/uL (4.8-10.8)
--- NOTE | 2017-12-24 23:45 | CP.PCM.PN ---
Objective - Vital Signs/Intake and Output Vital Signs (last 24 hours): Temp Pulse Resp BP Pulse Ox 98.4 F 95 H 23 122/83 100 12/24/17 20:00 12/24/17 20:00 12/24/17 20:00 12/24/17 20:00 12/24/17 20:00 Intake and Output: 12/24/17 12/25/17 18:59 06:59 Intake Total 1520 Output Total 500 Balance 1020 - Medications Medications: Current Medications Albuterol/Ipratropium (Duoneb 3 Mg/0.5 Mg (3 Ml) Ud) 3 ml INH RQ6 [facility] Last Admin: 12/24/17 19:01 Dose: Not Given Cholestyramine Resin (Questran) 4 gm PO BID [facility] Last Admin: 12/24/17 17:25 Dose: 4 gm Diltiazem HCl (Cardizem) 30 mg NG Q6H [facility] Last Admin: 12/24/17 17:25 Dose: 30 mg Fluconazole (Diflucan Iv 100 Mg/50 Ml Ns) 50 mls @ 100 mls/hr IVPB Q24H [facility] PRN Reason: Protocol Stop: 12/26/17 10:29 Last Admin: 12/24/17 09:50 Dose: 100 mls/hr Cefepime HCl (Maxipime Iv 1 Gm Premix) 1 gm in 50 mls @ 100 mls/hr IVPB Q24H [facility] PRN Reason: Protocol Last Admin: 12/24/17 17:24 Dose: 100 mls/hr Metronidazole (Flagyl) 500 mg in 100 mls @ 100 mls/hr IVPB Q8 [facility] PRN Reason: Protocol Last Admin: 12/24/17 21:16 Dose: 100 mls/hr Levothyroxine Sodium (Synthroid) 100 mcg PO 0630 [facility] Last Admin: 12/24/17 05:54 Dose: 100 mcg Lorazepam (Ativan) 0.5 mg PO Q8 [facility] Last Admin: 12/24/17 21:16 Dose: 0.5 mg Magnesium Chloride (Slow-Mag) 64 mg PO DAILY [facility] Last Admin: 12/24/17 09:41 Dose: 64 mg Methylprednisolone (Solu-Medrol) 40 mg IV DAILY [facility] Last Admin: 12/24/17 09:41 Dose: 40 mg Pantoprazole Sodium (Protonix Inj) 40 mg IVP DAILY [facility] Rifampin (Rifampin Cap) 300 mg PO BID [facility] PRN Reason: Protocol Last Admin: 12/24/17 19:43 Dose: 300 mg Rosuvastatin Calcium (Crestor) 10 mg PO HS [facility] Last Admin: 12/24/17 21:16 Dose: 10 mg Saccharomyces Boulardii (Florastor) 250 mg PO BID [facility] Last Admin: 12/24/17 17:25 Dose: 250 mg Fluticasone/Salmeterol (Advair Diskus 250/50) 1 puff INH RQ12 [facility] Last Admin: 12/24/17 19:01 Dose: Not Given Vancomycin HCl (Vancocin (Oral Or Rectal Use)) 250 mg PO QID [facility] PRN Reason: Protocol Last Admin: 12/24/17 17:25 Dose: 250 mg Vitamin A (Vitamin A & D Oint Ud Foilpak) 1 ea EXT Q8 PRN PRN Reason: Dry SKIN Last Admin: 12/23/17 17:24 Dose: 1 ea - Labs Labs: 12/24/17 20:36 12/24/17 06:12 PT 14.9 SECONDS (9.7-12.2) H 12/15/17 21:43 INR 1.4 12/15/17 21:43 APTT 28 SECONDS (21-34) 12/15/17 21:43 Assessment and Plan (1) C. difficile colitis Status: Acute (2) Dehydration Status: Acute (3) Septicemia Status: Acute (4) Anxiety Status: Acute (5) COPD (chronic obstructive pulmonary disease) Status: Acute (6) Depressed Status: Acute (7) Diarrhea Status: Acute (8) HTN (hypertension) Status: Acute
--- NOTE | 2017-12-24 23:55 | PN ---
DATE: 12/24/2017 SUBJECTIVE: The patient is anxious. She is in distress. Seen and examined. Son is on the side. I explained to him about the patient's symptoms, working diagnosis and treatment. The patient is alert. She is on NG tube with feeds. PHYSICAL EXAMINATION: VITAL SIGNS: Blood pressure is 98/59, pulse 91, respiratory rate 22, temperature 98.6. LUNGS: Bilateral clear. CVS: S1, S2. Tachycardic. ABDOMEN: Soft. ASSESSMENT: 1. Severe anxiety. 2. Severe diastolic dysfunction. 3. Chronic obstructive pulmonary disease. 4. Depression, anxiety. PLAN: Medical management. Monitor the patient. Lex Patel MD
[2017-12-25] MEDS: Albuterol-Ipratrop 3 mg / 0.5 (3 ml) UD INH SCH ×4 (02:01→19:17)
--- NOTE | 2017-12-25 04:42 | PN ---
DATE: 12/24/2017 SUBJECTIVE: The patient is anxious. She is bleeding rectally and she has a slight drop in her hemoglobin from 8.3 to 7.8. WBC has gone up. The patient has still loose, watery, dark green stool. No fever. She is less anxious today than yesterday. No nausea, vomiting, chills, . PHYSICAL EXAMINATION: VITAL SIGNS: Blood pressure 122/83, pulse 95, respiratory rate 23, and temperature 98.4. LUNGS: Decreased air entry. CARDIOVASCULAR: S1 and S2 are regular. No heave. No thrill. ABDOMEN: Soft. Nontender. Bowel sounds are positive. ASSESSMENT: 1. Chronic obstructive pulmonary disease exacerbation. 2. Gastritis, rule out peptic ulcer disease. 3. Severe generalized anxiety disorder. 4. Hypertension. PLAN: Protonix IV push. Repeat CBC. Packed red blood cell transfusion if the patient's hemoglobin drops below 7. GI evaluation. Lex Patel MD
[2017-12-25] MEDS: metroNIDAZOLE IV 500 mg/100 ml 500 MG/100 ML BAG IVPB SCH ×3 (06:02→21:10)
[2017-12-25] MEDS: Levothyroxine 100 MCG TAB PO SCH (06:04)
[2017-12-25 06:24] LABS: BASO % 0.3 % (0.0-2.0); HEMOGLOBIN 7.3 g/dL (11.0-16.0); LYMPH # 0.7 K/uL (1.0-4.3); LYMPH % 4.5 % (20.0-40.0); MEAN CELL VOLUME 89.6 fL (81.0-99.0); MEAN CORPUSCULAR HEMOGLOBIN 29.9 pg (27.0-31.0); MEAN CORPUSCULAR HGB CONC 33.3 g/dL (33.0-37.0); MEAN PLATELET VOLUME 9.2 fL (7.2-11.7); MONO # 0.8 K/uL (0.0-0.8); MONO % 5.1 % (0.0-10.0); NEUT # 14.8 K/uL (1.8-7.0); NEUT % 90.1 % (50.0-75.0); NRBC % 0.9 % (0.0-2.0); PLATELET COUNT 332 K/uL (130-400); RBC 2.45 Mil/uL (3.80-5.20); RED CELL DISTRIBUTION WIDTH 17.8 % (11.5-14.5); WHITE BLOOD COUNT 16.5 K/uL (4.8-10.8)
--- NOTE | 2017-12-25 07:34 | PN ---
DATE: 12/22/2017 SUBJECTIVE: The patient was short of breath. Temperature has spiked up. No reported hypertension. PHYSICAL EXAMINATION: VITAL SIGNS: Blood pressure 118/85, heart rate 110, temperature 98.2, respirations 25. HEENT: Pale conjunctivae. CHEST: Decreased bilateral rhonchi. HEART: S1 and S2 regular. ABDOMEN: Soft. EXTREMITIES: No edema. LABORATORY DATA: Hemoglobin and hematocrit 8.6 and 25.8. White count 15.4, platelet count 157,000. SMA-7, sodium 134, potassium 3.7, chloride 107, CO2 20, glucose 155. BUN 7, creatinine 0.6. Today's chest x-ray repeated, right lower lobe airspace disease, may represent atelectasis or pneumonia. ASSESSMENT: 1. Exacerbation of chronic obstructive lung disease. 2. Multifocal atrial tachycardia. 3. Questionable paroxysmal atrial fibrillation. 4. Right lower lobe pneumonia. 5. Clostridium difficile colitis. 6. Anemia. RECOMMENDATIONS: Continue current aspirin 81 mg once a day, Cardizem 30 mg every 6 hours, 100 mg daily. Increase 10 mg once a day, Lovenox 30 mg subcutaneously once a day, potassium chloride intravenous placement, 5 mg subcu. Continue Solu-Medrol 40 mg intravenously daily and Synthroid at 100 mcg once a day. Continue oral vancomycin 250 mg four times a day. Tru Vinson MD
[2017-12-25] MEDS: Fluticasone-Salmeterol 250-50mcg Diskus INH SCH ×2 (07:59→19:17)
[2017-12-25] MEDS ORDERED: Iohexol 240 (50 ml) PO ONE (08:15)
[2017-12-25 08:28] LABS: ANISOCYTOSIS SLIGHT; BANDS 3 % (0-2); LYMPHOCYTE 4 % (20-40); METAMYELOCYTE 1 % (0-0); MONOCYTE 8 % (0-10); NEUTROPHIL 84 % (50-75); NUCLEATED RED BLOOD CELL 1 % (0-0); PLATELET ESTIMATE NORMAL (NORMAL); TOTAL CELLS COUNTED 100
[2017-12-25 08:29] LABS: POIKILOCYTOSIS SLIGHT
[2017-12-25 08:30] LABS: BURR CELLS SLIGHT
[2017-12-25] MEDS: Cholestyramine 4 gm/Pkt UD PO SCH ×2 (10:00→17:24)
[2017-12-25] MEDS: Vancomycin 125 MG/5 ML SOLN (ORAL/RECTAL) PO SCH ×4 (10:00→21:10)
[2017-12-25] MEDS: Magnesium Chloride 64 mg ER Tab PO SCH (10:00)
[2017-12-25] MEDS: MethylPREDNISolone 40 mg Vial IV SCH (10:00)
[2017-12-25] MEDS: Saccharomyces Boulardi 250 mg Cap PO SCH ×2 (10:00→17:22)
[2017-12-25] MEDS: Fluconazole IV 100mg/50 ml NS 50 ML IVPB SCH (11:00)
--- NOTE | 2017-12-25 12:51 | CP.PCM.PN ---
Subjective - Date & Time of Evaluation Date of Evaluation: 12/25/17 Time of Evaluation: 12:51 - Subjective Subjective: CHIEF COMPLAINTS TODAY : AFEBRILE. AWAKE BUT LETHARGIC. OFF BIPAP. +VE MELANOTIC STOOLSVIA FLEXICEAL ROS. on observation only. HEENT : N. Resp : NO SOB,NO wheezing ,pleuritic CP ,or hemoptysis Cardio : No anginal CP, PND, orthopnea, palpitation GI : No abd.pain, n/v ,diarrhea or GI bleeding . TRUCK JUMPER : No headache, vertigo, focal deficit. Musculoskel : No joint swelling , Derm : No rash Psych : Normal affect. Ext : No swelling ,calf pain PE. Pt. is awake ,PRESENTLY NOT IN ACUTE DISTRESS V.S As noted in the chart Head ,ear nose,throat and eyes : Normal. Neck : Supple with normal carotids. Lungs: DIMINISHED BREATH SOUNDS AT THE BASES Heart : S1 & S2 IRREGULAR.. Abd : Soft non tender with normal bowel sounds. Neuro : Moves all ext. with no localized deficit. Ext : No edema with intact pulses.Non tender calves Derm : No rashes or decubitus ulcer. LABS/RADIOLOGY: CT ABD PELVIS W PO CONTRAST NOTED. diffuse anasarca with body wall edema trace ascites. Enteric and rectal tube. Mild ileal wall thickening. rt retroareolar breast mass. CHEST X-RAY 12/22/17 NOTED -/B/L AIRSPACE DISEASE BOTH LOWER LOBES LLL ATELECTASIS/ PARTIAL COLLAPSE VERSUS PNEUMONIA. URINE CULTURE +VE YEAST 12/19/17 BLOOD CULTURE 12/22/17 -VE 3 DAYS VIA CC WBC 16.5 IMPROVING H/H 7.3/HCT 21.9 L;OW CREAT 0.5/bun 7. L.FTS -NORMAL NA 151 Objective - Vital Signs/Intake and Output Vital Signs (last 24 hours): Temp Pulse Resp BP Pulse Ox 97.7 F 89 19 119/70 98 12/25/17 08:00 12/25/17 10:00 12/25/17 08:00 12/25/17 08:00 12/25/17 08:00 Intake and Output: 12/25/17 12/25/17 06:59 18:59 Intake Total 800 Output Total 102 Balance 698 - Medications Medications: Current Medications Albuterol/Ipratropium (Duoneb 3 Mg/0.5 Mg (3 Ml) Ud) 3 ml INH RQ6 [facility] Last Admin: 12/25/17 07:59 Dose: Not Given Cholestyramine Resin (Questran) 4 gm PO BID [facility] Last Admin: 12/24/17 17:25 Dose: 4 gm Diltiazem HCl (Cardizem) 30 mg NG Q6H [facility] Last Admin: 12/25/17 06:02 Dose: 30 mg Fluconazole (Diflucan Iv 100 Mg/50 Ml Ns) 50 mls @ 100 mls/hr IVPB Q24H [facility] PRN Reason: Protocol Stop: 12/26/17 10:29 Last Admin: 12/24/17 09:50 Dose: 100 mls/hr Cefepime HCl (Maxipime Iv 1 Gm Premix) 1 gm in 50 mls @ 100 mls/hr IVPB Q24H [facility] PRN Reason: Protocol Last Admin: 12/24/17 17:24 Dose: 100 mls/hr Metronidazole (Flagyl) 500 mg in 100 mls @ 100 mls/hr IVPB Q8 [facility] PRN Reason: Protocol Last Admin: 12/25/17 06:02 Dose: 100 mls/hr Levothyroxine Sodium (Synthroid) 100 mcg PO 0630 [facility] Last Admin: 12/25/17 06:04 Dose: 100 mcg Lorazepam (Ativan) 0.5 mg PO Q8 [facility] Last Admin: 12/25/17 06:05 Dose: 0.5 mg Magnesium Chloride (Slow-Mag) 64 mg PO DAILY [facility] Last Admin: 12/24/17 09:41 Dose: 64 mg Methylprednisolone (Solu-Medrol) 40 mg IV DAILY [facility] Last Admin: 12/24/17 09:41 Dose: 40 mg Pantoprazole Sodium (Protonix Inj) 40 mg IVP DAILY [facility] Rifampin (Rifampin Cap) 300 mg PO BID [facility] PRN Reason: Protocol Last Admin: 12/24/17 19:43 Dose: 300 mg Rosuvastatin Calcium (Crestor) 10 mg PO HS [facility] Last Admin: 12/24/17 21:16 Dose: 10 mg Saccharomyces Boulardii (Florastor) 250 mg PO BID [facility] Last Admin: 12/24/17 17:25 Dose: 250 mg Fluticasone/Salmeterol (Advair Diskus 250/50) 1 puff INH RQ12 [facility] Last Admin: 12/25/17 07:59 Dose: Not Given Vancomycin HCl (Vancocin (Oral Or Rectal Use)) 250 mg PO QID [facility] PRN Reason: Protocol Last Admin: 12/24/17 22:00 Dose: 250 mg Vitamin A (Vitamin A & D Oint Ud Foilpak) 1 ea EXT Q8 PRN PRN Reason: Dry SKIN Last Admin: 12/23/17 17:24 Dose: 1 ea - Labs Labs: 12/25/17 06:15 12/24/17 06:12 PT 14.9 SECONDS (9.7-12.2) H 12/15/17 21:43 INR 1.4 12/15/17 21:43 APTT 28 SECONDS (21-34) 12/15/17 21:43 Assessment and Plan (1) Pneumonia Assessment & Plan: ON IV mAXIPEME 1 G EVERY 24 HOURLY 12/22/17. cONTINUE iv fLAGYL 500 EVERY 8 HOURLY. F/U SPUTUM CULTURE/AND GRAM STAIN. PULMONARY TOILET. PT DNR/DNI NOTED. Status: Acute (2) C. difficile colitis Assessment & Plan: CONTINUE BY MOUTH VANCOMYCIN 250 4 TIMES A DAY cONTINUE iv fLAGYL iv 100 EVERY 8 HOURLY. rifampin 300 mg by mouth BID AND CHOLESTYRAMINE ADDED PER GI 12/25/17 gi on board Status: Acute (3) Dehydration Status: Acute (4) Hypernatremia Assessment & Plan: SODIUM 135 IMPROVING. 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 Status: Resolved (5) Atrial fibrillation with rapid ventricular response Status: Acute (6) Breast mass, left Status: Acute (7) Candiduria Assessment & Plan: PT ON IV FLUCONAZOLE 100MG IV Q 24OURLY. Status: Acute (8) GIB (gastrointestinal bleeding) Assessment & Plan: WATCH H/H. GI ON BOARD.HX OF DUODENAL ULCER/GASTRITIS Status: Acute
--- NOTE | 2017-12-25 13:44 | CT ---
PROCEDURE: CT Abdomen and Pelvis without intravenous contrast HISTORY: GI bleed COMPARISON: CT scan of the abdomen pelvis dated 11/18/2017. TECHNIQUE: Contiguous images were obtained from the domes of the diaphragms to the upper thighs without the administration of intravenous contrast. Oral contrast was administered. Radiation dose: Total exam DLP = 624.3 mGy-cm. This CT exam was performed using one or more of the following dose reduction techniques: Automated exposure control, adjustment of the mA and/or kV according to patient size, and/or use of iterative reconstruction technique. FINDINGS: LOWER THORAX: Small bilateral pleural effusions with subjacent atelectasis. Heart size normal. Coronary arterial and valvular calcifications. LIVER: 7 mm left hepatic lobe hypodensity, too small to characterize. No gross lesion or ductal dilatation. GALLBLADDER AND BILE DUCTS: Minimal cholelithiasis within a contracted gallbladder. PANCREAS: Unremarkable. No gross lesion or ductal dilatation. SPLEEN: Unremarkable. ADRENALS: Left adrenal nodular thickening. KIDNEYS AND URETERS: Unremarkable. No hydronephrosis. No solid mass. VASCULATURE: Heavy calcific atherosclerosis. Stable ectasia of the suprarenal abdominal aorta. Bilateral common/external iliac artery stents. No aortic aneurysm. BOWEL: Enteric tube with tip in the stomach. Rectal tube. Scattered surgical clips in the ascending colon. No obstruction. No gross mural thickening. APPENDIX: Not identified. PERITONEUM: Surgical clips along the bilateral pelvic sidewall. Trace ascites. Anasarca with body wall edema. No free air. LYMPH NODES: Unremarkable. No enlarged lymph nodes. BLADDER: Unremarkable. REPRODUCTIVE: Unremarkable. BONES: No acute fracture. OTHER FINDINGS: Right retroareolar breast mass measuring 2.0 x 1.7 cm. Right gluteal region soft tissue calcifications IMPRESSION: Administration of enteric contrast with absence of intravenous contrast precludes assessment for active gastrointestinal bleed. For diffuse anasarca with body wall edema and trace ascites. Enteric and rectal tubes in place. Mild ileal wall thickening may be due to underdistention versus third-spacing versus reactive in nature. Right retroareolar breast mass. Additional nonacute findings as above.
--- NOTE | 2017-12-25 17:11 | CP.PCM.PN ---
Subjective - Date & Time of Evaluation Date of Evaluation: 12/25/17 Time of Evaluation: 10:00 - Subjective Subjective: HPI: Patient examined this morning at the bedside. Patient is not in acute distress. Patient has improved breathing. Patient is afebrile. Patient is more responsive. ROS: Constitutional: Patient denies fever and chills. Cardiovascular: Patient denies chest pain, palpitations. Respiratory: Patient denies shortness of breath or cough. Gastrointestinal: Patient denies nausea, vomiting, diarrhea. Physical Exam HEENT: Atraumatic, normocephalic, mucuous membranes moist Repiratory: Clear to auscultation bilaterally. No wheezing or rhonchi. No use of accessory muscles. Cardiovascular: +S1/ S2, regular rate and rhythm GI: Normal bowel sounds in all 4 quadrants, no tenderness, no distention Extremities: No LE edema Neurological: Alert, awake, oriented X3 Assessment: 82 year old female with PMHx of CHF, dementia, anxiety, COPD, and HTN. Patient' s exam consistent with COPD and C. difficile colitis which is resolving with treatment. 1. C. difficile colitis Status: Acute - Continue ID antibiotic recommendations 2. COPD Exacerbation Status: Chronic - Albuterol/ Ipratropium 3 ml INH RQ6 - Continue BiPAP as needed Objective - Vital Signs/Intake and Output Vital Signs (last 24 hours): Temp Pulse Resp BP Pulse Ox 97.8 F 110 H 20 112/60 100 12/25/17 16:00 12/25/17 16:00 12/25/17 16:00 12/25/17 16:00 12/25/17 16:00 Intake and Output: 12/25/17 12/25/17 06:59 18:59 Intake Total 800 Output Total 102 Balance 698 - Medications Medications: Current Medications Albuterol/Ipratropium (Duoneb 3 Mg/0.5 Mg (3 Ml) Ud) 3 ml INH RQ6 [facility] Last Admin: 12/25/17 13:49 Dose: Not Given Cholestyramine Resin (Questran) 4 gm PO BID [facility] Last Admin: 12/25/17 10:00 Dose: Not Given Diltiazem HCl (Cardizem) 30 mg NG Q6H [facility] Last Admin: 12/25/17 12:00 Dose: Not Given Fluconazole (Diflucan Iv 100 Mg/50 Ml Ns) 50 mls @ 100 mls/hr IVPB Q24H [facility] PRN Reason: Protocol Stop: 12/26/17 10:29 Last Admin: 12/25/17 11:00 Dose: 100 mls/hr Cefepime HCl (Maxipime Iv 1 Gm Premix) 1 gm in 50 mls @ 100 mls/hr IVPB Q24H [facility] PRN Reason: Protocol Last Admin: 12/24/17 17:24 Dose: 100 mls/hr Metronidazole (Flagyl) 500 mg in 100 mls @ 100 mls/hr IVPB Q8 [facility] PRN Reason: Protocol Last Admin: 12/25/17 13:38 Dose: 100 mls/hr Levothyroxine Sodium (Synthroid) 100 mcg PO 0630 [facility] Last Admin: 12/25/17 06:04 Dose: 100 mcg Lorazepam (Ativan) 0.5 mg PO Q8 [facility] Last Admin: 12/25/17 06:05 Dose: 0.5 mg Magnesium Chloride (Slow-Mag) 64 mg PO DAILY [facility] Last Admin: 12/25/17 10:00 Dose: Not Given Methylprednisolone (Solu-Medrol) 40 mg IV DAILY [facility] Last Admin: 12/25/17 10:00 Dose: 40 mg Pantoprazole Sodium (Protonix Inj) 40 mg IVP DAILY [facility] Last Admin: 12/25/17 11:00 Dose: 40 mg Rifampin (Rifampin Cap) 300 mg PO BID [facility] PRN Reason: Protocol Last Admin: 12/25/17 10:00 Dose: Not Given Rosuvastatin Calcium (Crestor) 10 mg PO HS [facility] Last Admin: 12/24/17 21:16 Dose: 10 mg Saccharomyces Boulardii (Florastor) 250 mg PO BID [facility] Last Admin: 12/25/17 10:00 Dose: Not Given Fluticasone/Salmeterol (Advair Diskus 250/50) 1 puff INH RQ12 [facility] Last Admin: 12/25/17 07:59 Dose: Not Given Vancomycin HCl (Vancocin (Oral Or Rectal Use)) 250 mg PO QID [facility] PRN Reason: Protocol Last Admin: 12/25/17 13:37 Dose: 250 mg Vitamin A (Vitamin A & D Oint Ud Foilpak) 1 ea EXT Q8 PRN PRN Reason: Dry SKIN Last Admin: 12/23/17 17:24 Dose: 1 ea - Labs Labs: 12/25/17 06:15 12/24/17 06:12 PT 14.9 SECONDS (9.7-12.2) H 12/15/17 21:43 INR 1.4 12/15/17 21:43 APTT 28 SECONDS (21-34) 12/15/17 21:43 Assessment and Plan (1) C. difficile colitis Status: Acute (2) COPD exacerbation Status: Acute (3) Dehydration Status: Acute
[2017-12-25] MEDS: Cefepime IV 1 gm in Dextrose 1 GM/50 ML BAG IVPB SCH (17:23)
--- NOTE | 2017-12-25 17:23 | CP.PCM.CON ---
History of Present Illness - History of Present Illness History of Present Illness: GI Fellow PGY4, consult note. Consulted for GI bleed. 82yo AAF with history of COPD, duodenal ulcers, hemorrhoids, gastritis who has been admitted for 10 days for SVT, COPD, MAYUR and C diff now with melena via rectal tube. Patient was seen and examined. She does not participate in care and has restraints. She has been having melena x3 days with decreasing hemoglobin. No reports of fever. She has dark watery stool present. PMHx - see above. PSHx: EGD and Colonoscopy last month shows duodenal ulcer, gastritis and congested colonic mucosa and bleeding hemorrhoids. FMHx: unable to obtain SocHx: Unable to obtain. Unable to complete 12pt ROS due to AMS. Past Patient History - Infectious Disease Hx of Infectious Diseases: None - Past Medical History & Family History Past Medical History?: Yes - Past Social History Smoking Status: Former Smoker - CARDIAC Hx Congestive Heart Failure: Yes Hx Hypertension: Yes - PULMONARY Hx Chronic Obstructive Pulmonary Disease (COPD): Yes Hx Emphysema: Yes - NEUROLOGICAL Hx Neurological Disorder: No Hx Paralysis: No - HEENT Hx HEENT Problems: No - ENDOCRINE/METABOLIC Hx Hypothyroidism: Yes - HEMATOLOGICAL/ONCOLOGICAL Hx Blood Disorders: No Hx Blood Transfusions: No Hx Cancer: Yes ("STOMACH") - INTEGUMENTARY Hx Dermatological Problems: No - MUSCULOSKELETAL/RHEUMATOLOGICAL Hx Arthritis: Yes (B/L KNEES) - GASTROINTESTINAL Hx Gastrointestinal Disorders: No - GENITOURINARY/GYNECOLOGICAL Hx Genitourinary Disorders: No - PSYCHIATRIC Hx Anxiety: Yes Hx Substance Use: No - SURGICAL HISTORY Hx Surgeries: Yes Other/Comment: insertion of vascular stents (01/31). "STOMACH CANCER SURGERY" - ANESTHESIA Hx Anesthesia: Yes Hx Anesthesia Reactions: No Hx Malignant Hyperthermia: No Meds Allergies/Adverse Reactions: Allergies Allergy/AdvReac Type Severity Reaction Status Date / Time No Known Allergies Allergy Verified 11/18/17 14:12 - Medications Medications: Current Medications Albuterol/Ipratropium (Duoneb 3 Mg/0.5 Mg (3 Ml) Ud) 3 ml INH RQ6 [facility] Last Admin: 12/25/17 13:49 Dose: Not Given Cholestyramine Resin (Questran) 4 gm PO BID [facility] Last Admin: 12/25/17 10:00 Dose: Not Given Diltiazem HCl (Cardizem) 30 mg NG Q6H [facility] Last Admin: 12/25/17 12:00 Dose: Not Given Fluconazole (Diflucan Iv 100 Mg/50 Ml Ns) 50 mls @ 100 mls/hr IVPB Q24H [facility] PRN Reason: Protocol Stop: 12/26/17 10:29 Last Admin: 12/25/17 11:00 Dose: 100 mls/hr Cefepime HCl (Maxipime Iv 1 Gm Premix) 1 gm in 50 mls @ 100 mls/hr IVPB Q24H [facility] PRN Reason: Protocol Last Admin: 12/24/17 17:24 Dose: 100 mls/hr Metronidazole (Flagyl) 500 mg in 100 mls @ 100 mls/hr IVPB Q8 [facility] PRN Reason: Protocol Last Admin: 12/25/17 13:38 Dose: 100 mls/hr Levothyroxine Sodium (Synthroid) 100 mcg PO 0630 [facility] Last Admin: 12/25/17 06:04 Dose: 100 mcg Lorazepam (Ativan) 0.5 mg PO Q8 [facility] Last Admin: 12/25/17 06:05 Dose: 0.5 mg Magnesium Chloride (Slow-Mag) 64 mg PO DAILY [facility] Last Admin: 12/25/17 10:00 Dose: Not Given Methylprednisolone (Solu-Medrol) 40 mg IV DAILY [facility] Last Admin: 12/25/17 10:00 Dose: 40 mg Pantoprazole Sodium (Protonix Inj) 40 mg IVP DAILY [facility] Last Admin: 12/25/17 11:00 Dose: 40 mg Rifampin (Rifampin Cap) 300 mg PO BID [facility] PRN Reason: Protocol Last Admin: 12/25/17 10:00 Dose: Not Given Rosuvastatin Calcium (Crestor) 10 mg PO HS [facility] Last Admin: 12/24/17 21:16 Dose: 10 mg Saccharomyces Boulardii (Florastor) 250 mg PO BID [facility] Last Admin: 12/25/17 10:00 Dose: Not Given Fluticasone/Salmeterol (Advair Diskus 250/50) 1 puff INH RQ12 [facility] Last Admin: 12/25/17 07:59 Dose: Not Given Vancomycin HCl (Vancocin (Oral Or Rectal Use)) 250 mg PO QID [facility] PRN Reason: Protocol Last Admin: 12/25/17 13:37 Dose: 250 mg Vitamin A (Vitamin A & D Oint Ud Foilpak) 1 ea EXT Q8 PRN PRN Reason: Dry SKIN Last Admin: 12/23/17 17:24 Dose: 1 ea Physical Exam - Constitutional Appears: No Acute Distress, Combative, Agitated, Confused, Chronically Ill - Head Exam Head Exam: ATRAUMATIC, NORMAL INSPECTION, NORMOCEPHALIC - Eye Exam Eye Exam: EOMI, Normal appearance - ENT Exam ENT Exam: Mucous Membranes Dry, Normal Exam - Respiratory Exam Respiratory Exam: NORMAL BREATHING PATTERN. absent: Wheezes, Stridor - Cardiovascular Exam Cardiovascular Exam: REGULAR RHYTHM, +S1, +S2 - GI/Abdominal Exam GI & Abdominal Exam: Normal Bowel Sounds, Soft. absent: Distended, Tenderness - Rectal Exam Rectal Exam: Deferred - Extremities Exam Extremities exam: Positive for: full ROM, pedal edema. Negative for: tenderness - Neurological Exam Neurological exam: Abnormal Gait, Altered, CN II-XII Intact - Psychiatric Exam Psychiatric exam: Agitated, Anxious, Flat Affect - Skin Skin Exam: Dry, Normal Color, Warm Results - Vital Signs Recent Vital Signs: Last Vital Signs Temp 97.8 F 12/25/17 16:00 Pulse 110 H 12/25/17 16:00 Resp 20 12/25/17 16:00 BP 112/60 12/25/17 16:00 Pulse Ox 100 12/25/17 16:00 - Labs Result Diagrams: 12/25/17 06:15 12/24/17 06:12 Labs: Laboratory Results - last 24 hr 12/24/17 12/25/17 12/25/17 20:36 06:15 06:15 WBC 18.1 H 16.5 H RBC 2.66 L 2.45 L Hgb 7.8 L 7.3 L Hct 23.8 L 21.9 L MCV 89.6 89.6 MCH 29.2 29.9 MCHC 32.6 L 33.3 RDW 17.4 H 17.8 H Plt Count 352 332 MPV 8.5 9.2 Neut % (Auto) 90.1 H Lymph % (Auto) 4.5 L [place] % (Auto) 5.1 Eos % (Auto) 0.0 Baso % (Auto) 0.3 Neut # (Auto) 14.8 H Lymph # (Auto) 0.7 L [place] # (Auto) 0.8 Eos # (Auto) 0.0 Baso # (Auto) 0.0 Neutrophils % (Manual) 84 H Band Neutrophils % 3 H Lymphocytes % (Manual) 4 L Monocytes % (Manual) 8 Metamyelocytes % 1 H Nucleated RBC % 1 H Platelet Estimate Normal Poikilocytosis (manual Slight Anisocytosis (manual) Slight Fithian Cells Slight Carcinoembryonic Ag 3.5 H Blood Type Antibody Screen 12/25/17 12:13 WBC RBC Hgb Hct MCV MCH MCHC RDW Plt Count MPV Neut % (Auto) Lymph % (Auto) [place] % (Auto) Eos % (Auto) Baso % (Auto) Neut # (Auto) Lymph # (Auto) [place] # (Auto) Eos # (Auto) Baso # (Auto) Neutrophils % (Manual) Band Neutrophils % Lymphocytes % (Manual) Monocytes % (Manual) Metamyelocytes % Nucleated RBC % Platelet Estimate Poikilocytosis (manual Anisocytosis (manual) Fithian Cells Carcinoembryonic Ag Blood Type O POSITIVE Antibody Screen Negative Assessment & Plan - Assessment and Plan (Free Text) Assessment: 82F with hx of COPD, gastritis, duodenal ulcers and CDiff with signs of gi bleed #C. Difficile infection #Acute blood loss anemia #Duodenal ulcer #Gastritis #COPD #HTN #Anxiety Plan: -Continue supportive care -CT abd/pelv findings noted -Continue PPI IV BID -Start sucralfate -Continue C. diff managment: Flagyl, oral vano and rifampin -Monitor H/H and transfuse for Hb less than 7. -Continue all other care per primary and ICU team. -No endoscopic procedure planned at this time -Further management pending clinical progress. We will continue to monitor patient course. - Date & Time Date: 12/25/17 Time: 17:55
[2017-12-25 18:39] LABS: URINE BILIRUBIN NEGATIVE (NEGATIVE); URINE BLOOD NEGATIVE (NEGATIVE); URINE CLARITY Clear (Clear); URINE COLOR Yellow (YELLOW); URINE GLUCOSE (UA) NORMAL (Normal); URINE LEUKOCYTE ESTERASE 3+ Leu/uL (Negative); URINE PROTEIN NEGATIVE (NEGATIVE); URINE UROBILINOGEN NORMAL mg/dL (0.2-1.0)
[2017-12-25] MEDS: Sucralfate 1 gm/10 ml Oral Susp UD NG SCH (18:56)
--- NOTE | 2017-12-25 20:24 | PN ---
DATE: 12/25/2017 SUBJECTIVE: The patient is awake and comfortable, on nasal O2, . PHYSICAL EXAMINATION: VITAL SIGNS: Blood pressure 118/70, heart rate 102, temperature 97.7, respirations 19. HEENT: Pale conjunctivae. CHEST: Bilateral rhonchi. HEART: S1 and S2 are regular. EXTREMITIES: No pedal edema. LABORATORY DATA: white count 16.5, and platelet count is 332,000. SMA-7 is within normal limits except glucose of 107 and creatinine 0.5. ASSESSMENT: 1. Paroxysmal tachycardia as well as multifocal tachycardia and questionable paroxysmal atrial fibrillation. 2. Enterococcus faecalis urinary tract infection. 3. Clostridium difficile colitis. 4. Chronic obstructive lung disease. 5. Borderline troponin elevation. RECOMMENDATIONS: Continue Ativan 0.5 mg every 8 hours, Cardizem 30 mg every 6 hours, Crestor 10 mg once a day, IV fluconazole 500 mg daily, IV Flagyl 500 mg every 8 hours, IV cefepime at 1 gm daily, Rifampin 300 mg orally twice a day, Solu-Medrol 40 mg intravenously daily, Slow-Mag 64 mg orally daily, Synthroid 100 mg once a day, oral vancomycin 250 mg four times a day. I have done a CT scan study that was performed yesterday. Tru Vinson MD
[2017-12-25] MEDS: Dextrose 5%/0.45% NS 1,000 ML IV SCH (23:05)
--- NOTE | 2017-12-25 23:58 | CP.PCM.PN ---
Subjective - Date & Time of Evaluation Date of Evaluation: 12/25/17 Time of Evaluation: 17:00 - Subjective Subjective: Pt seen and examined at bedside Objective - Vital Signs/Intake and Output Vital Signs (last 24 hours): Temp Pulse Resp BP Pulse Ox 97.5 F L 121 H 29 H 127/87 100 12/25/17 20:35 12/25/17 20:35 12/25/17 20:35 12/25/17 20:35 12/25/17 20:00 Intake and Output: 12/25/17 12/26/17 18:59 06:59 Intake Total 335 325 Output Total 300 Balance 35 325 - Medications Medications: Current Medications Albuterol/Ipratropium (Duoneb 3 Mg/0.5 Mg (3 Ml) Ud) 3 ml INH RQ6 [facility] Last Admin: 12/25/17 19:17 Dose: Not Given Cholestyramine Resin (Questran) 4 gm PO BID [facility] Last Admin: 12/25/17 17:24 Dose: 4 gm Diltiazem HCl (Cardizem) 30 mg NG Q6H [facility] Last Admin: 12/25/17 23:13 Dose: 30 mg Fluconazole (Diflucan Iv 100 Mg/50 Ml Ns) 50 mls @ 100 mls/hr IVPB Q24H [facility] PRN Reason: Protocol Stop: 12/26/17 10:29 Last Admin: 12/25/17 11:00 Dose: 100 mls/hr Cefepime HCl (Maxipime Iv 1 Gm Premix) 1 gm in 50 mls @ 100 mls/hr IVPB Q24H [facility] PRN Reason: Protocol Last Admin: 12/25/17 17:23 Dose: 100 mls/hr Metronidazole (Flagyl) 500 mg in 100 mls @ 100 mls/hr IVPB Q8 [facility] PRN Reason: Protocol Last Admin: 12/25/17 21:10 Dose: 100 mls/hr Dextrose/Sodium Chloride (Dextrose 5%/0.45% Ns 1000 Ml) 1,000 mls @ 60 mls/hr IV .[id number] [facility] Last Admin: 12/25/17 23:05 Dose: 60 mls/hr Levothyroxine Sodium (Synthroid) 100 mcg PO 0630 [facility] Last Admin: 12/25/17 06:04 Dose: 100 mcg Lorazepam (Ativan) 0.5 mg PO Q8 [facility] Last Admin: 12/25/17 21:10 Dose: 0.5 mg Magnesium Chloride (Slow-Mag) 64 mg PO DAILY [facility] Last Admin: 12/25/17 10:00 Dose: Not Given Methylprednisolone (Solu-Medrol) 40 mg IV DAILY [facility] Last Admin: 12/25/17 10:00 Dose: 40 mg Pantoprazole Sodium (Protonix Inj) 40 mg IVP BID [facility] Last Admin: 12/25/17 18:57 Dose: 40 mg Rifampin (Rifampin Cap) 300 mg PO BID [facility] PRN Reason: Protocol Last Admin: 12/25/17 17:25 Dose: 300 mg Rosuvastatin Calcium (Crestor) 10 mg PO HS [facility] Last Admin: 12/25/17 21:10 Dose: 10 mg Saccharomyces Boulardii (Florastor) 250 mg PO BID [facility] Last Admin: 12/25/17 17:22 Dose: 250 mg Fluticasone/Salmeterol (Advair Diskus 250/50) 1 puff INH RQ12 [facility] Last Admin: 12/25/17 19:17 Dose: Not Given Sucralfate (Carafate Oral Susp) 1 gm NG Q8H [facility] Last Admin: 12/25/17 18:56 Dose: 1 gm Vancomycin HCl (Vancocin (Oral Or Rectal Use)) 250 mg PO QID [facility] PRN Reason: Protocol Last Admin: 12/25/17 21:10 Dose: 250 mg Vitamin A (Vitamin A & D Oint Ud Foilpak) 1 ea EXT Q8 PRN PRN Reason: Dry SKIN Last Admin: 12/23/17 17:24 Dose: 1 ea - Labs Labs: 12/25/17 06:15 12/24/17 06:12 PT 14.9 SECONDS (9.7-12.2) H 12/15/17 21:43 INR 1.4 12/15/17 21:43 APTT 28 SECONDS (21-34) 12/15/17 21:43 Assessment and Plan (1) C. difficile colitis Status: Acute (2) Dehydration Status: Acute (3) Septicemia Status: Acute (4) Anxiety Status: Acute (5) COPD (chronic obstructive pulmonary disease) Status: Acute (6) Depressed Status: Acute (7) Diarrhea Status: Acute (8) HTN (hypertension) Status: Acute
[2017-12-26] MEDS: Albuterol-Ipratrop 3 mg / 0.5 (3 ml) UD INH SCH ×4 (01:30→19:34)
[2017-12-26] MEDS: Sucralfate 1 gm/10 ml Oral Susp UD NG SCH ×3 (02:35→17:17)
[2017-12-26] MEDS: Levothyroxine 100 MCG TAB PO SCH (05:52)
[2017-12-26] MEDS: metroNIDAZOLE IV 500 mg/100 ml 500 MG/100 ML BAG IVPB SCH ×3 (06:02→21:30)
[2017-12-26 06:14] LABS: BASO % 0.1 % (0.0-2.0); HEMOGLOBIN 8.8 g/dL (11.0-16.0); LYMPH # 0.8 K/uL (1.0-4.3); LYMPH % 3.6 % (20.0-40.0); MEAN CELL VOLUME 84.9 fL (81.0-99.0); MEAN CORPUSCULAR HGB CONC 34.1 g/dL (33.0-37.0); MEAN PLATELET VOLUME 8.9 fL (7.2-11.7); MONO # 0.9 K/uL (0.0-0.8); MONO % 4.4 % (0.0-10.0); NEUT # 19.5 K/uL (1.8-7.0); NEUT % 91.9 % (50.0-75.0); NRBC % 0.4 % (0.0-2.0); PLATELET COUNT 285 K/uL (130-400); RBC 3.03 Mil/uL (3.80-5.20); RED CELL DISTRIBUTION WIDTH 16.8 % (11.5-14.5); WHITE BLOOD COUNT 21.2 K/uL (4.8-10.8)
[2017-12-26 06:19] LABS: INR 1.4; PROTHROMBIN TIME 15.3 SECONDS (9.7-12.2)
[2017-12-26 06:46] LABS: ALBUMIN 1.9 g/dL (3.5-5.0); ALT/SGPT 37 U/L (9-52); AST/SGOT 19 U/L (14-36); BLOOD UREA NITROGEN 18 mg/dL (7-17); CALCIUM 7.4 mg/dl (8.6-10.4); GFR AFRICAN-AMERICAN > 60; GFR NON-AFRICAN AMERICAN > 60
[2017-12-26] MEDS: Fluticasone-Salmeterol 250-50mcg Diskus INH SCH (07:59)
[2017-12-26 08:33] LABS: ANISOCYTOSIS SLIGHT; BANDS 1 % (0-2); LYMPHOCYTE 3 % (20-40); MONOCYTE 4 % (0-10); MYELOCYTE 2 % (0-0); NEUTROPHIL 90 % (50-75); PLATELET ESTIMATE NORMAL (NORMAL); POIKILOCYTOSIS SLIGHT; TOTAL CELLS COUNTED 100
[2017-12-26 08:34] LABS: BURR CELLS SLIGHT; GIANT PLATELETS PRESENT; HYPOCHROMIC SLIGHT; LARGE PLATELETS PRESENT; TEARDROP CELLS SLIGHT
[2017-12-26 08:38] LABS: POLYCHROMIC SLIGHT; TOXIC GRANULATION PRESENT
[2017-12-26] MEDS: Saccharomyces Boulardi 250 mg Cap PO SCH ×2 (09:15→17:23)
[2017-12-26] MEDS: Magnesium Chloride 64 mg ER Tab PO SCH (09:16)
[2017-12-26] MEDS: Cholestyramine 4 gm/Pkt UD PO SCH ×4 (09:16→21:43)
[2017-12-26] MEDS: MethylPREDNISolone 40 mg Vial IV SCH (09:17)
[2017-12-26] MEDS: Vancomycin 125 MG/5 ML SOLN (ORAL/RECTAL) PO SCH ×4 (09:17→22:04)
[2017-12-26] MEDS: Fluconazole IV 100mg/50 ml NS 50 ML IVPB SCH (10:13)
[2017-12-26] MEDS ORDERED: Propofol 10 mg/ml Inj (20 ML) ONE (11:32)
[2017-12-26] MEDS ORDERED: Lactated Ringer's 1,000 ML IV ONE ×2 (11:35)
[2017-12-26] MEDS: Magnesium Citrate Oral SOL (300 ml) PO SCH ×2 (13:54→13:56)
--- NOTE | 2017-12-26 16:52 | CP.PCM.PN ---
Subjective - Date & Time of Evaluation Date of Evaluation: 12/26/17 Time of Evaluation: 12:00 - Subjective Subjective: patient seen and examined Patient is off BiPAP Patient is awake but does not follow commands status post transfusion of packed RBC Objective - Vital Signs/Intake and Output Vital Signs (last 24 hours): Temp Pulse Resp BP Pulse Ox 97.6 F 112 H 30 H 126/83 100 12/26/17 16:00 12/26/17 16:00 12/26/17 16:00 12/26/17 16:00 12/26/17 16:00 Intake and Output: 12/26/17 12/26/17 06:59 18:59 Intake Total 945 Output Total 350 Balance 595 - Medications Medications: Current Medications Albuterol/Ipratropium (Duoneb 3 Mg/0.5 Mg (3 Ml) Ud) 3 ml INH RQ6 [facility] Last Admin: 12/26/17 11:30 Dose: 3 ml Bisacodyl (Dulcolax) 10 mg PO ONCE [facility] Stop: 12/27/17 18:01 Cholestyramine Resin (Questran) 4 gm PO QID [facility] Last Admin: 12/26/17 14:43 Dose: 4 gm Diltiazem HCl (Cardizem) 30 mg NG Q6H [facility] Last Admin: 12/26/17 12:00 Dose: Not Given Cefepime HCl (Maxipime Iv 1 Gm Premix) 1 gm in 50 mls @ 100 mls/hr IVPB Q24H [facility] PRN Reason: Protocol Last Admin: 12/25/17 17:23 Dose: 100 mls/hr Metronidazole (Flagyl) 500 mg in 100 mls @ 100 mls/hr IVPB Q8 [facility] PRN Reason: Protocol Last Admin: 12/26/17 14:36 Dose: 100 mls/hr Dextrose/Sodium Chloride (Dextrose 5%/0.45% Ns 1000 Ml) 1,000 mls @ 60 mls/hr IV .[id number] [facility] Last Admin: 12/25/17 23:05 Dose: 60 mls/hr Levothyroxine Sodium (Synthroid) 100 mcg PO 0630 [facility] Last Admin: 12/26/17 05:52 Dose: 100 mcg Lorazepam (Ativan) 0.5 mg PO Q8 [facility] Last Admin: 12/26/17 14:34 Dose: Not Given Magnesium Chloride (Slow-Mag) 64 mg PO DAILY [facility] Last Admin: 12/26/17 09:16 Dose: Not Given Magnesium Citrate (Citrate Of Mag) 120 ml PO ONCE [facility] Stop: 12/27/17 13:01 Last Admin: 12/26/17 13:56 Dose: 120 ml Methylprednisolone (Solu-Medrol) 40 mg IV DAILY [facility] Last Admin: 12/26/17 09:17 Dose: 40 mg Pantoprazole Sodium (Protonix Inj) 40 mg IVP BID [facility] Last Admin: 12/26/17 09:16 Dose: 40 mg Rifampin (Rifampin Cap) 300 mg PO BID [facility] PRN Reason: Protocol Last Admin: 12/26/17 09:16 Dose: Not Given Rosuvastatin Calcium (Crestor) 10 mg PO HS [facility] Last Admin: 12/25/17 21:10 Dose: 10 mg Saccharomyces Boulardii (Florastor) 250 mg PO BID [facility] Last Admin: 12/26/17 09:15 Dose: Not Given Fluticasone/Salmeterol (Advair Diskus 250/50) 1 puff INH RQ12 [facility] Last Admin: 12/26/17 07:59 Dose: Not Given Sucralfate (Carafate Oral Susp) 1 gm NG Q8H [facility] Last Admin: 12/26/17 09:14 Dose: Not Given Vancomycin HCl (Vancocin (Oral Or Rectal Use)) 250 mg PO QID [facility] PRN Reason: Protocol Last Admin: 12/26/17 14:39 Dose: 250 mg Vitamin A (Vitamin A & D Oint Ud Foilpak) 1 ea EXT Q8 PRN PRN Reason: Dry SKIN Last Admin: 12/23/17 17:24 Dose: 1 ea - Labs Labs: 12/26/17 06:08 12/26/17 06:09 PT 15.3 SECONDS (9.7-12.2) H 12/26/17 06:09 INR 1.4 12/26/17 06:09 APTT 28 SECONDS (21-34) 12/15/17 21:43 - Head Exam Head Exam: ATRAUMATIC, NORMOCEPHALIC - Neck Exam Neck Exam: Normal Inspection - Respiratory Exam Respiratory Exam: Decreased Breath Sounds - Cardiovascular Exam Cardiovascular Exam: Irregular Rhythm - GI/Abdominal Exam GI & Abdominal Exam: Soft Assessment and Plan (1) C. difficile colitis Status: Acute (2) COPD exacerbation Status: Acute (3) Dehydration Status: Acute
[2017-12-26] MEDS: Cefepime IV 1 gm in Dextrose 1 GM/50 ML BAG IVPB SCH (17:18)
[2017-12-26] MEDS: Dextrose 5%/0.45% NS 1,000 ML IV SCH (17:46)
[2017-12-26] MEDS ORDERED: Bisacodyl 5mg EC Tab PO SCH (18:00)
--- NOTE | 2017-12-26 19:29 | PN ---
DATE: 12/26/2017 SUBJECTIVE: The patient received one unit of packed RBC transfusion. She still has maroon stool from the rectal tube. She is in atrial tachycardia on the monitor. PHYSICAL EXAMINATION: VITAL SIGNS: Blood pressure 99/56, heart rate 106, temperature 97.8, respiration 19. HEENT: Pale conjunctivae. CHEST: Diminished breath sounds over the bases. HEART: S1 and S2 regular. ABDOMEN: Soft. EXTREMITIES: No edema. LABORATORY DATA: SMA-7; sodium 128, potassium 3.5, chloride 99, CO2 of 23, glucose 78, BUN 18, creatinine 0.6. Today's hemoglobin and hematocrit after one unit of packed RBC transfusion is 8.8 and 25.7, white count 21.2, platelet count 185,000. Upper endoscopy was performed today and revealed gastritis, which was biopsied, and duodenitis. ASSESSMENT: 1. Atrial tachycardia. 2. Chronic obstructive lung disease. 3. Anemia. 4. Gastritis and duodenitis. 5. Clostridium difficile colitis. 6. Enterococcus faecalis urinary tract infection. RECOMMENDATIONS: Continue current 30 mg every 6 hours, continue Crestor 10 mg once a day, albuterol inhaler, continue IV Flagyl 500 mg every 8 hours, IV 1 gm daily, rifampin 300 mg orally twice a day, Solu-Medrol 40 mg intravenously daily, Synthroid 100 mcg daily, and vancomycin 250 mg orally q.i.d. The plan is to perform colonoscopy tomorrow, which is okay from the cardiac point of view. Tru Vinson MD
--- NOTE | 2017-12-26 23:15 | CP.PCM.PN ---
Subjective - Date & Time of Evaluation Date of Evaluation: 12/26/17 Time of Evaluation: 23:15 - Subjective Subjective: CHIEF COMPLAINTS TODAY : AFEBRILE. AWAKE BUT LETHARGIC. OFF/AND ON BIPAP. TACHYCARDIC. NONVERBAL DUE TO ADVANCED DEMENTIA. ROS. on observation only. HEENT : N. Resp : NO SOB,NO wheezing ,pleuritic CP ,or hemoptysis Cardio : No anginal CP, PND, orthopnea, palpitation GI : No abd.pain, n/v ,diarrhea or GI bleeding . [employer] : No headache, vertigo, focal deficit. Musculoskel : No joint swelling , Derm : No rash Psych : Normal affect. Ext : No swelling ,calf pain PE. Pt. is awake ,PRESENTLY NOT IN ACUTE DISTRESS V.S As noted in the chart Head ,ear nose,throat and eyes : Normal. Neck : Supple with normal carotids. Lungs: DIMINISHED BREATH SOUNDS AT THE BASES Heart : S1 & S2 IRREGULAR.. Abd : Soft non tender with normal bowel sounds. Neuro : Moves all ext. with no localized deficit. Ext : No edema with intact pulses.Non tender calves Derm : No rashes or decubitus ulcer. LABS/RADIOLOGY: REVIEWED CT ABD PELVIS W PO CONTRAST NOTED. diffuse anasarca with body wall edema trace ascites. Enteric and rectal tube. Mild ileal wall thickening. rt retroareolar breast mass. CHEST X-RAY 12/22/17 NOTED -/B/L AIRSPACE DISEASE BOTH LOWER LOBES LLL ATELECTASIS/ PARTIAL COLLAPSE VERSUS PNEUMONIA. URINE CULTURE +VE YEAST 12/19/17 BLOOD CULTURE 12/22/17 -VE 3 DAYS VIA CC Objective - Vital Signs/Intake and Output Vital Signs (last 24 hours): Temp Pulse Resp BP Pulse Ox 97.6 F 116 H 16 121/80 100 12/26/17 20:00 12/26/17 22:18 12/26/17 20:00 12/26/17 20:00 12/26/17 16:00 Intake and Output: 12/26/17 12/27/17 18:59 06:59 Intake Total 900 Output Total 500 Balance 400 - Medications Medications: Current Medications Albuterol/Ipratropium (Duoneb 3 Mg/0.5 Mg (3 Ml) Ud) 3 ml INH RQ6 [facility] Last Admin: 12/26/17 19:34 Dose: 3 ml Bisacodyl (Dulcolax) 10 mg PO ONCE [facility] Stop: 12/27/17 18:01 Last Admin: 12/26/17 17:16 Dose: 10 mg Cholestyramine Resin (Questran) 4 gm PO QID [facility] Last Admin: 12/26/17 21:43 Dose: 4 gm Diltiazem HCl (Cardizem) 30 mg NG Q6H [facility] Last Admin: 12/26/17 17:17 Dose: 30 mg Cefepime HCl (Maxipime Iv 1 Gm Premix) 1 gm in 50 mls @ 100 mls/hr IVPB Q24H [facility] PRN Reason: Protocol Last Admin: 12/26/17 17:18 Dose: 100 mls/hr Metronidazole (Flagyl) 500 mg in 100 mls @ 100 mls/hr IVPB Q8 [facility] PRN Reason: Protocol Last Admin: 12/26/17 21:30 Dose: 100 mls/hr Dextrose/Sodium Chloride (Dextrose 5%/0.45% Ns 1000 Ml) 1,000 mls @ 60 mls/hr IV .[id number] [facility] Last Admin: 12/26/17 17:46 Dose: 60 mls/hr Levothyroxine Sodium (Synthroid) 100 mcg PO 0630 [facility] Last Admin: 12/26/17 05:52 Dose: 100 mcg Lorazepam (Ativan) 0.5 mg PO Q8 [facility] Last Admin: 12/26/17 21:30 Dose: 0.5 mg Magnesium Chloride (Slow-Mag) 64 mg PO DAILY [facility] Last Admin: 12/26/17 09:16 Dose: Not Given Magnesium Citrate (Citrate Of Mag) 120 ml PO ONCE [facility] Stop: 12/27/17 13:01 Last Admin: 12/26/17 13:56 Dose: 120 ml Methylprednisolone (Solu-Medrol) 40 mg IV DAILY [facility] Last Admin: 12/26/17 09:17 Dose: 40 mg Pantoprazole Sodium (Protonix Inj) 40 mg IVP BID [facility] Last Admin: 12/26/17 17:17 Dose: 40 mg Rifampin (Rifampin Cap) 300 mg PO BID [facility] PRN Reason: Protocol Last Admin: 12/26/17 17:34 Dose: 300 mg Rosuvastatin Calcium (Crestor) 10 mg PO HS [facility] Last Admin: 12/26/17 21:30 Dose: 10 mg Saccharomyces Boulardii (Florastor) 250 mg PO BID [facility] Last Admin: 12/26/17 17:23 Dose: 250 mg Fluticasone/Salmeterol (Advair Diskus 250/50) 1 puff INH RQ12 [facility] Last Admin: 12/26/17 07:59 Dose: Not Given Sucralfate (Carafate Oral Susp) 1 gm NG Q8H [facility] Last Admin: 12/26/17 17:17 Dose: 1 gm Vancomycin HCl (Vancocin (Oral Or Rectal Use)) 250 mg PO QID [facility] PRN Reason: Protocol Last Admin: 12/26/17 22:04 Dose: 250 mg Vitamin A (Vitamin A & D Oint Ud Foilpak) 1 ea EXT Q8 PRN PRN Reason: Dry SKIN Last Admin: 12/23/17 17:24 Dose: 1 ea - Labs Labs: 12/26/17 06:08 12/26/17 06:09 PT 15.3 SECONDS (9.7-12.2) H 12/26/17 06:09 INR 1.4 12/26/17 06:09 APTT 28 SECONDS (21-34) 12/15/17 21:43 Assessment and Plan (1) Pneumonia Assessment & Plan: ON IV mAXIPEME 1 G EVERY 24 HOURLY 12/22/17. cONTINUE iv fLAGYL 500 EVERY 8 HOURLY. F/U SPUTUM CULTURE/AND GRAM STAIN. PULMONARY TOILET. PT DNR/DNI NOTED. Status: Acute (2) C. difficile colitis Assessment & Plan: CONTINUE BY MOUTH VANCOMYCIN 250 4 TIMES A DAY cONTINUE iv fLAGYL iv 100 EVERY 8 HOURLY. rifampin 300 mg by mouth BID AND CHOLESTYRAMINE ADDED PER GI 12/25/17 GI ON BOARD. Status: Acute (3) Dehydration Status: Acute (4) Hypernatremia Status: Resolved (5) Atrial fibrillation with rapid ventricular response Status: Acute (6) Breast mass, left Assessment & Plan: patient DNR/DNI. Continue supportive care Status: Acute (7) Candiduria Assessment & Plan: PT ON IV FLUCONAZOLE 100MG IV Q 24OURLY. Status: Acute (8) GIB (gastrointestinal bleeding) Assessment & Plan: as per GI. Watch H&H. Status: Acute
[2017-12-26] MEDS ORDERED: Bisacodyl 5mg EC Tab PO ONE (23:30)
--- NOTE | 2017-12-27 00:12 | CP.PCM.PN ---
Subjective - Date & Time of Evaluation Date of Evaluation: 12/26/17 Time of Evaluation: 17:00 - Subjective Subjective: pt seen & examined Objective - Vital Signs/Intake and Output Vital Signs (last 24 hours): Temp Pulse Resp BP Pulse Ox 97.6 F 120 H 16 121/80 100 12/26/17 20:00 12/26/17 23:37 12/26/17 20:00 12/26/17 20:00 12/26/17 16:00 Intake and Output: 12/26/17 12/27/17 18:59 06:59 Intake Total 900 Output Total 500 Balance 400 - Medications Medications: Current Medications Albuterol/Ipratropium (Duoneb 3 Mg/0.5 Mg (3 Ml) Ud) 3 ml INH RQ6 [facility] Last Admin: 12/26/17 19:34 Dose: 3 ml Cholestyramine Resin (Questran) 4 gm PO QID [facility] Last Admin: 12/26/17 21:43 Dose: 4 gm Diltiazem HCl (Cardizem) 30 mg NG Q6H [facility] Last Admin: 12/27/17 00:08 Dose: 30 mg Cefepime HCl (Maxipime Iv 1 Gm Premix) 1 gm in 50 mls @ 100 mls/hr IVPB Q24H [facility] PRN Reason: Protocol Last Admin: 12/26/17 17:18 Dose: 100 mls/hr Metronidazole (Flagyl) 500 mg in 100 mls @ 100 mls/hr IVPB Q8 [facility] PRN Reason: Protocol Last Admin: 12/26/17 21:30 Dose: 100 mls/hr Dextrose/Sodium Chloride (Dextrose 5%/0.45% Ns 1000 Ml) 1,000 mls @ 60 mls/hr IV .[id number] [facility] Last Admin: 12/26/17 17:46 Dose: 60 mls/hr Levothyroxine Sodium (Synthroid) 100 mcg PO 0630 [facility] Last Admin: 12/26/17 05:52 Dose: 100 mcg Lorazepam (Ativan) 0.5 mg PO Q8 [facility] Last Admin: 12/26/17 21:30 Dose: 0.5 mg Magnesium Chloride (Slow-Mag) 64 mg PO DAILY [facility] Last Admin: 12/26/17 09:16 Dose: Not Given Magnesium Citrate (Citrate Of Mag) 120 ml PO ONCE [facility] Stop: 12/27/17 13:01 Last Admin: 12/26/17 13:56 Dose: 120 ml Methylprednisolone (Solu-Medrol) 40 mg IV DAILY [facility] Last Admin: 12/26/17 09:17 Dose: 40 mg Pantoprazole Sodium (Protonix Inj) 40 mg IVP BID [facility] Last Admin: 12/26/17 17:17 Dose: 40 mg Rifampin (Rifampin Cap) 300 mg PO BID [facility] PRN Reason: Protocol Last Admin: 12/26/17 17:34 Dose: 300 mg Rosuvastatin Calcium (Crestor) 10 mg PO HS [facility] Last Admin: 12/26/17 21:30 Dose: 10 mg Saccharomyces Boulardii (Florastor) 250 mg PO BID [facility] Last Admin: 12/26/17 17:23 Dose: 250 mg Fluticasone/Salmeterol (Advair Diskus 250/50) 1 puff INH RQ12 [facility] Last Admin: 12/26/17 07:59 Dose: Not Given Sucralfate (Carafate Oral Susp) 1 gm NG Q8H [facility] Last Admin: 12/26/17 17:17 Dose: 1 gm Vancomycin HCl (Vancocin (Oral Or Rectal Use)) 250 mg PO QID [facility] PRN Reason: Protocol Last Admin: 12/26/17 22:04 Dose: 250 mg Vitamin A (Vitamin A & D Oint Ud Foilpak) 1 ea EXT Q8 PRN PRN Reason: Dry SKIN Last Admin: 12/23/17 17:24 Dose: 1 ea - Labs Labs: 12/26/17 06:08 12/26/17 06:09 PT 15.3 SECONDS (9.7-12.2) H 12/26/17 06:09 INR 1.4 12/26/17 06:09 APTT 28 SECONDS (21-34) 12/15/17 21:43 Assessment and Plan (1) C. difficile colitis Status: Acute (2) Dehydration Status: Acute (3) Septicemia Status: Acute (4) Anxiety Status: Acute (5) COPD (chronic obstructive pulmonary disease) Status: Acute (6) Depressed Status: Acute (7) Diarrhea Status: Acute (8) HTN (hypertension) Status: Acute
[2017-12-27] MEDS: Albuterol-Ipratrop 3 mg / 0.5 (3 ml) UD INH SCH ×4 (01:22→20:24)
[2017-12-27] MEDS: Sucralfate 1 gm/10 ml Oral Susp UD NG SCH ×3 (01:45→09:58)
[2017-12-27] MEDS: Levothyroxine 100 MCG TAB PO SCH (06:05)
[2017-12-27] MEDS: metroNIDAZOLE IV 500 mg/100 ml 500 MG/100 ML BAG IVPB SCH ×3 (06:05→22:02)
[2017-12-27 06:48] LABS: BASO % 0.2 % (0.0-2.0); EOS % 0.1 % (0.0-4.0); HEMOGLOBIN 7.6 g/dL (11.0-16.0); LYMPH # 0.4 K/uL (1.0-4.3); LYMPH % 2.6 % (20.0-40.0); MEAN CELL VOLUME 84.3 fL (81.0-99.0); MEAN CORPUSCULAR HEMOGLOBIN 28.8 pg (27.0-31.0); MEAN CORPUSCULAR HGB CONC 34.1 g/dL (33.0-37.0); MEAN PLATELET VOLUME 8.2 fL (7.2-11.7); MONO # 0.8 K/uL (0.0-0.8); MONO % 4.8 % (0.0-10.0); NEUT % 92.3 % (50.0-75.0); NRBC % 0.3 % (0.0-2.0); PLATELET COUNT 282 K/uL (130-400); RBC 2.65 Mil/uL (3.80-5.20); RED CELL DISTRIBUTION WIDTH 17.5 % (11.5-14.5); WHITE BLOOD COUNT 16.3 K/uL (4.8-10.8)
[2017-12-27 07:00] LABS: ALBUMIN 1.8 g/dL (3.5-5.0); ALT/SGPT 37 U/L (9-52); AST/SGOT 17 U/L (14-36); BLOOD UREA NITROGEN 15 mg/dL (7-17); CALCIUM 7.1 mg/dl (8.6-10.4); GFR AFRICAN-AMERICAN > 60; GFR NON-AFRICAN AMERICAN > 60
[2017-12-27] MEDS: Fluticasone-Salmeterol 250-50mcg Diskus INH SCH ×2 (08:07→20:24)
[2017-12-27 08:33] LABS: BANDS 1 % (0-2); LYMPHOCYTE 5 % (20-40); MONOCYTE 4 % (0-10); TOTAL CELLS COUNTED 100
[2017-12-27 08:34] LABS: ANISOCYTOSIS SLIGHT; HYPOCHROMIC SLIGHT; NEUTROPHIL 90 % (50-75); PLATELET ESTIMATE NORMAL (NORMAL); POIKILOCYTOSIS SLIGHT; TARGET CELLS SLIGHT
[2017-12-27] MEDS: Dextrose 5%/0.45% NS 1,000 ML IV SCH ×2 (09:04→23:31)
[2017-12-27] MEDS: MethylPREDNISolone 40 mg Vial IV SCH (09:16)
[2017-12-27] MEDS: Saccharomyces Boulardi 250 mg Cap PO SCH ×3 (09:17→17:10)
[2017-12-27] MEDS: Vancomycin 125 MG/5 ML SOLN (ORAL/RECTAL) PO SCH ×5 (09:18→22:02)
[2017-12-27] MEDS: Cholestyramine 4 gm/Pkt UD PO SCH ×5 (09:18→22:05)
[2017-12-27] MEDS: Magnesium Chloride 64 mg ER Tab PO SCH (09:59)
--- NOTE | 2017-12-27 10:08 | RAD ---
Date of service: 12/26/2017 HISTORY: pneumonia/chf COMPARISON: 12/22/2017. FINDINGS: LUNGS: Stable infiltrates particularly left lower lobe. PLEURA: Stable pleural effusions left larger than right. CARDIOVASCULAR: No radiographic findings to suggest acute or significant cardiovascular disease. PICC line in satisfactory position unchanged. OSSEOUS STRUCTURES: No significant abnormalities. VISUALIZED UPPER ABDOMEN: Normal. OTHER FINDINGS: Satisfactory position nasogastric tube decompressed stomach IMPRESSION: Stable lower lobe infiltrates and pleural effusions left larger than right. Stable position of support apparatus.
--- NOTE | 2017-12-27 10:58 | CP.PCM.PN ---
Subjective - Date & Time of Evaluation Date of Evaluation: 12/27/17 Time of Evaluation: 10:55 - Subjective Subjective: GI Fellow PGY4, Progress note. Patient is on BiPAP. Unable to communicate due to dementia. Patient still have blood stool output ~200cc overnight. She is scheduled for another blood transfusion today. Unable to complete 12pt ROS due to AMS. Objective - Vital Signs/Intake and Output Vital Signs (last 24 hours): Temp Pulse Resp BP Pulse Ox 98.1 F 109 H 24 128/72 100 12/27/17 08:00 12/27/17 08:07 12/27/17 08:00 12/27/17 08:00 12/27/17 08:00 Intake and Output: 12/27/17 12/27/17 06:59 18:59 Intake Total 760 Output Total 550 Balance 210 - Medications Medications: Current Medications Albuterol/Ipratropium (Duoneb 3 Mg/0.5 Mg (3 Ml) Ud) 3 ml INH RQ6 [facility] Last Admin: 12/27/17 08:07 Dose: 3 ml Bisacodyl (Dulcolax) 10 mg PO ONCE ONE Stop: 12/27/17 18:01 Cholestyramine Resin (Questran) 4 gm PO QID [facility] Last Admin: 12/27/17 09:58 Dose: 4 gm Diltiazem HCl (Cardizem) 30 mg NG Q6H [facility] Last Admin: 12/27/17 06:05 Dose: 30 mg Cefepime HCl (Maxipime Iv 1 Gm Premix) 1 gm in 50 mls @ 100 mls/hr IVPB Q24H [facility] PRN Reason: Protocol Last Admin: 12/26/17 17:18 Dose: 100 mls/hr Metronidazole (Flagyl) 500 mg in 100 mls @ 100 mls/hr IVPB Q8 [facility] PRN Reason: Protocol Last Admin: 12/27/17 06:05 Dose: 100 mls/hr Dextrose/Sodium Chloride (Dextrose 5%/0.45% Ns 1000 Ml) 1,000 mls @ 60 mls/hr IV .[id number] [facility] Last Admin: 12/27/17 09:04 Dose: Not Given Potassium Chloride (Potassium Chloride 20 Meq/100 Ml) 20 meq in 100 mls @ 50 mls/hr IVPB Q2H [facility] Stop: 12/27/17 14:59 Last Admin: 12/27/17 09:16 Dose: 50 mls/hr Levothyroxine Sodium (Synthroid) 100 mcg PO 0630 [facility] Last Admin: 12/27/17 06:05 Dose: 100 mcg Lorazepam (Ativan) 0.5 mg PO Q8 [facility] Last Admin: 12/27/17 06:05 Dose: 0.5 mg Magnesium Chloride (Slow-Mag) 64 mg PO DAILY [facility] Last Admin: 12/27/17 09:59 Dose: 64 mg Magnesium Citrate (Citrate Of Mag) 120 ml PO ONCE [facility] Stop: 12/27/17 13:01 Last Admin: 12/26/17 13:56 Dose: 120 ml Magnesium Citrate (Citrate Of Mag) 120 ml PO ONCE ONE Stop: 12/27/17 13:01 Methylprednisolone (Solu-Medrol) 40 mg IV DAILY [facility] Last Admin: 12/27/17 09:16 Dose: 40 mg Pantoprazole Sodium (Protonix Inj) 40 mg IVP BID [facility] Last Admin: 12/27/17 09:17 Dose: 40 mg Rifampin (Rifampin Cap) 300 mg PO BID [facility] PRN Reason: Protocol Last Admin: 12/27/17 09:59 Dose: 300 mg Rosuvastatin Calcium (Crestor) 10 mg PO HS [facility] Last Admin: 12/26/17 21:30 Dose: 10 mg Saccharomyces Boulardii (Florastor) 250 mg PO BID [facility] Last Admin: 12/27/17 09:58 Dose: 250 mg Fluticasone/Salmeterol (Advair Diskus 250/50) 1 puff INH RQ12 [facility] Last Admin: 12/27/17 08:07 Dose: Not Given Sucralfate (Carafate Oral Susp) 1 gm NG Q8H [facility] Last Admin: 12/27/17 09:58 Dose: 1 gm Vancomycin HCl (Vancocin (Oral Or Rectal Use)) 250 mg PO QID [facility] PRN Reason: Protocol Last Admin: 12/27/17 09:59 Dose: 250 mg Vitamin A (Vitamin A & D Oint Ud Foilpak) 1 ea EXT Q8 PRN PRN Reason: Dry SKIN Last Admin: 12/23/17 17:24 Dose: 1 ea - Labs Labs: 12/27/17 06:44 12/27/17 06:44 PT 15.3 SECONDS (9.7-12.2) H 07/10/18 06:09 INR 1.4 12/26/17 06:09 APTT 28 SECONDS (21-34) 12/15/17 21:43 - Constitutional Appears: No Acute Distress, Chronically Ill - Head Exam Head Exam: ATRAUMATIC, NORMAL INSPECTION, NORMOCEPHALIC - Eye Exam Eye Exam: EOMI, Normal appearance, PERRL - ENT Exam ENT Exam: Mucous Membranes Moist, Normal Exam - Respiratory Exam Respiratory Exam: Clear to Ausculation Bilateral, NORMAL BREATHING PATTERN. absent: Wheezes - Cardiovascular Exam Cardiovascular Exam: REGULAR RHYTHM, +S1, +S2 - GI/Abdominal Exam GI & Abdominal Exam: Soft, Tenderness, Normal Bowel Sounds. absent: Distended - Rectal Exam Additional comments: Rectal tube in position with dark melena. - Neurological Exam Neurological Exam: Altered, Awake. absent: Oriented x3 - Psychiatric Exam Psychiatric exam: Agitated, Anxious. absent: Normal Affect - Skin Skin Exam: Dry, Intact, Warm Assessment and Plan - Assessment and Plan (Free Text) Assessment: 82F with hx of COPD, gastritis, duodenal ulcers and CDiff with signs of gi bleed #C. Difficile infection #Acute blood loss anemia due to GI bleed #Duodenal ulcer #Gastritis #COPD #HTN #Anxiety Plan: -Continue supportive care -CT abd/pelv findings noted -C. Diff Ag and Tox negative as of 12/25/17 -EGD 12/26/17 benign w/out evidence for cause of active rectal bleeding -Possible Lower GI bleed (colitis) vs small bowel bleed. -Continue PPI IV BID -d/c sucralfate as no evidence of active UPPER GI bleeding -Continue C. diff managment: Flagyl, oral vano and rifampin -Monitor H/H and transfuse for Hb less than 7. -Continue all other care per primary and ICU team. -Colonoscopy planned for tomorrow with prep, NPO past midnight. -Further management pending clinical progress. We will continue to monitor patient course.
[2017-12-27] MEDS ORDERED: Magnesium Citrate Oral SOL (300 ml) PO ONE (13:00)
[2017-12-27] MEDS: Cefepime IV 1 gm in Dextrose 1 GM/50 ML BAG IVPB SCH (17:10)
[2017-12-27] MEDS ORDERED: Bisacodyl 5mg EC Tab PO ONE (18:00)
--- NOTE | 2017-12-27 20:04 | PN ---
DATE: 12/27/2017 SUBJECTIVE: The patient is currently on BiPAP, but appears comfortable except for the fact that she becomes very uncooperative when approached by medical team. PHYSICAL EXAMINATION: VITAL SIGNS: Heart rate is 109, which is sinus tachycardia with APCs in the monitor, blood pressure 122/81, temperature 98.9, respirations 33. HEENT: Pale conjunctivae. CHEST: Bilateral rhonchi. HEART: S1 and S2, regular. EXTREMITIES: 1+ leg edema. LABORATORY DATA: SMA-7; sodium 128, potassium 3.2, chloride 99, CO2 of 23, glucose 98, BUN 15, creatinine 0.7. Today's hemoglobin and hematocrit 7.6 and 22.3, white count 16.3, platelet count 182,000. ASSESSMENT: 1. Exacerbation of chronic obstructive lung disease. 2. Anemia. 3. Hyponatremia and hypokalemia as well as hypomagnesemia. 4. Enterococcus fecalis urinary tract infection. 5. Periods of atrial tachycardia. 6. Clostridium difficile colitis. RECOMMENDATIONS: Continue Ativan 0.1 mg every 8 hours, Cardizem 30 mg every 6 hours, Flagyl 500 mg intravenously every 8 hours, Maxipime 1 gm intravenously daily. Continue potassium chloride intravenous replacement, and the patient will receive a total of 60 mEq today. Continue rifampin 300 mg orally twice a day, Solu-Medrol 40 mg intravenously daily, Synthroid 100 mcg once a day, oral vanco 250 mg q.i.d. Tru Vinson MD
--- NOTE | 2017-12-27 22:39 | CP.PCM.PN ---
Objective - Vital Signs/Intake and Output Vital Signs (last 24 hours): Temp Pulse Resp BP Pulse Ox 98.1 F 103 H 25 H 118/71 100 12/27/17 20:00 12/27/17 22:01 12/27/17 20:00 12/27/17 20:00 12/27/17 20:00 Intake and Output: 12/27/17 12/28/17 18:59 06:59 Intake Total 1330 Output Total 900 Balance 430 - Medications Medications: Current Medications Albuterol/Ipratropium (Duoneb 3 Mg/0.5 Mg (3 Ml) Ud) 3 ml INH RQ6 [facility] Last Admin: 12/27/17 20:24 Dose: 3 ml Cholestyramine Resin (Questran) 4 gm PO QID [facility] Last Admin: 12/27/17 22:05 Dose: 4 gm Diltiazem HCl (Cardizem) 30 mg NG Q6H [facility] Last Admin: 12/27/17 17:10 Dose: 30 mg Cefepime HCl (Maxipime Iv 1 Gm Premix) 1 gm in 50 mls @ 100 mls/hr IVPB Q24H [facility] PRN Reason: Protocol Last Admin: 12/27/17 17:10 Dose: 100 mls/hr Metronidazole (Flagyl) 500 mg in 100 mls @ 100 mls/hr IVPB Q8 [facility] PRN Reason: Protocol Last Admin: 12/27/17 22:02 Dose: 100 mls/hr Dextrose/Sodium Chloride (Dextrose 5%/0.45% Ns 1000 Ml) 1,000 mls @ 60 mls/hr IV .[id number] [facility] Last Admin: 12/27/17 09:04 Dose: Not Given Levothyroxine Sodium (Synthroid) 100 mcg PO 0630 [facility] Last Admin: 12/27/17 06:05 Dose: 100 mcg Lorazepam (Ativan) 0.5 mg PO Q8 [facility] Last Admin: 12/27/17 22:01 Dose: 0.5 mg Magnesium Chloride (Slow-Mag) 64 mg PO DAILY [facility] Last Admin: 12/27/17 09:59 Dose: 64 mg Methylprednisolone (Solu-Medrol) 40 mg IV DAILY [facility] Last Admin: 12/27/17 09:16 Dose: 40 mg Pantoprazole Sodium (Protonix Inj) 40 mg IVP BID [facility] Last Admin: 12/27/17 17:10 Dose: 40 mg Rifampin (Rifampin Cap) 300 mg PO BID [facility] PRN Reason: Protocol Last Admin: 12/27/17 17:10 Dose: 300 mg Rosuvastatin Calcium (Crestor) 10 mg PO HS [facility] Last Admin: 12/27/17 22:01 Dose: 10 mg Saccharomyces Boulardii (Florastor) 250 mg PO BID [facility] Last Admin: 12/27/17 17:10 Dose: 250 mg Fluticasone/Salmeterol (Advair Diskus 250/50) 1 puff INH RQ12 [facility] Last Admin: 12/27/17 20:24 Dose: Not Given Vancomycin HCl (Vancocin (Oral Or Rectal Use)) 250 mg PO QID [facility] PRN Reason: Protocol Last Admin: 12/27/17 22:02 Dose: 250 mg Vitamin A (Vitamin A & D Oint Ud Foilpak) 1 ea EXT Q8 PRN PRN Reason: Dry SKIN Last Admin: 12/23/17 17:24 Dose: 1 ea - Labs Labs: 12/27/17 06:44 12/27/17 06:44 PT 15.3 SECONDS (9.7-12.2) H 12/26/17 06:09 INR 1.4 12/26/17 06:09 APTT 28 SECONDS (21-34) 12/15/17 21:43 Assessment and Plan (1) C. difficile colitis Status: Acute (2) Dehydration Status: Acute (3) Septicemia Status: Acute (4) Anxiety Status: Acute (5) COPD (chronic obstructive pulmonary disease) Status: Acute (6) Depressed Status: Acute (7) Diarrhea Status: Acute (8) HTN (hypertension) Status: Acute
[2017-12-28] MEDS: Albuterol-Ipratrop 3 mg / 0.5 (3 ml) UD INH SCH ×3 (01:06→20:13)
[2017-12-28] MEDS: Dextrose 5%/0.45% NS 1,000 ML IV SCH ×2 (04:21→18:17)
[2017-12-28] MEDS: Levothyroxine 100 MCG TAB PO SCH (06:06)
[2017-12-28] MEDS: metroNIDAZOLE IV 500 mg/100 ml 500 MG/100 ML BAG IVPB SCH ×3 (06:06→22:03)
[2017-12-28 06:18] LABS: BASO % 0.1 % (0.0-2.0); EOS % 0.2 % (0.0-4.0); HEMOGLOBIN 9.6 g/dL (11.0-16.0); LYMPH # 0.3 K/uL (1.0-4.3); MEAN CELL VOLUME 85.8 fL (81.0-99.0); MEAN PLATELET VOLUME 7.8 fL (7.2-11.7); MONO # 0.6 K/uL (0.0-0.8); MONO % 4.5 % (0.0-10.0); NEUT # 13.1 K/uL (1.8-7.0); NEUT % 93.2 % (50.0-75.0); NRBC % 0.2 % (0.0-2.0); PLATELET COUNT 232 K/uL (130-400); RBC 3.18 Mil/uL (3.80-5.20)
[2017-12-28 06:34] LABS: INR 1.3; PROTHROMBIN TIME 14.5 SECONDS (9.7-12.2)
[2017-12-28 06:41] LABS: ALT/SGPT 43 U/L (9-52); AST/SGOT 18 U/L (14-36); BLOOD UREA NITROGEN 9 mg/dL (7-17); CALCIUM 7.4 mg/dl (8.6-10.4); GFR AFRICAN-AMERICAN > 60; GFR NON-AFRICAN AMERICAN > 60
[2017-12-28] MEDS: Fluticasone-Salmeterol 250-50mcg Diskus INH SCH ×2 (07:27→20:11)
[2017-12-28 08:31] LABS: BANDS 1 % (0-2); LYMPHOCYTE 3 % (20-40); MONOCYTE 3 % (0-10); NEUTROPHIL 93 % (50-75); PLATELET ESTIMATE NORMAL (NORMAL); TOTAL CELLS COUNTED 100
[2017-12-28 08:32] LABS: ANISOCYTOSIS SLIGHT; LARGE PLATELETS PRESENT
[2017-12-28] MEDS: Cholestyramine 4 gm/Pkt UD PO SCH ×4 (10:30→22:03)
[2017-12-28] MEDS: Magnesium Chloride 64 mg ER Tab PO SCH (10:30)
[2017-12-28] MEDS: Vancomycin 125 MG/5 ML SOLN (ORAL/RECTAL) PO SCH ×4 (10:30→22:03)
[2017-12-28] MEDS: Saccharomyces Boulardi 250 mg Cap PO SCH ×2 (10:30→17:52)
[2017-12-28] MEDS: MethylPREDNISolone 40 mg Vial IV SCH (10:36)
--- NOTE | 2017-12-28 11:49 | CP.PCM.PCO ---
Physician Communication Note - Physician Communication Note Physician Communication Note: Son is coming in today for the meeting.
[2017-12-28] MEDS ORDERED: Midazolam 2 MG/2 ML VIAL ONE (12:02)
[2017-12-28] MEDS ORDERED: Propofol 10 mg/ml Inj (20 ML) ONE (12:03)
[2017-12-28] MEDS ORDERED: Lidocaine Hydrochloride 5 ML INJ ONE (13:17)
--- NOTE | 2017-12-28 15:28 | CP.PCM.PN ---
Subjective - Date & Time of Evaluation Date of Evaluation: 12/28/17 Time of Evaluation: 15:26 - Subjective Subjective: Patient is tachycardic, tachypneic, with high pressure O2 via mask. Colonoscopy at bed side was not performed today as planed. Patient continues with black, liquidy stool in large amounts. HR 101, RR 41. I iscussed goals of care with son today. Objective - Vital Signs/Intake and Output Vital Signs (last 24 hours): Temp Pulse Resp BP Pulse Ox 98.3 F 101 H 41 H 126/73 100 12/28/17 12:00 12/28/17 14:00 12/28/17 14:00 12/28/17 11:35 12/28/17 14:00 Intake and Output: 12/28/17 12/28/17 06:59 18:59 Intake Total 1150 Output Total 1100 Balance 50 - Medications Medications: Current Medications Albuterol/Ipratropium (Duoneb 3 Mg/0.5 Mg (3 Ml) Ud) 3 ml INH RQ6 [facility] Last Admin: 12/28/17 07:27 Dose: 3 ml Cholestyramine Resin (Questran) 4 gm PO QID [facility] Last Admin: 12/28/17 14:47 Dose: Not Given Diltiazem HCl (Cardizem) 30 mg NG Q6H [facility] Last Admin: 12/28/17 14:45 Dose: Not Given Cefepime HCl (Maxipime Iv 1 Gm Premix) 1 gm in 50 mls @ 100 mls/hr IVPB Q24H [facility] PRN Reason: Protocol Last Admin: 12/27/17 17:10 Dose: 100 mls/hr Metronidazole (Flagyl) 500 mg in 100 mls @ 100 mls/hr IVPB Q8 [facility] PRN Reason: Protocol Last Admin: 12/28/17 06:06 Dose: 100 mls/hr Dextrose/Sodium Chloride (Dextrose 5%/0.45% Ns 1000 Ml) 1,000 mls @ 60 mls/hr IV .[id number] [facility] Last Admin: 12/28/17 04:21 Dose: 60 mls/hr Levothyroxine Sodium (Synthroid) 100 mcg PO 0630 [facility] Last Admin: 12/28/17 06:06 Dose: Not Given Lorazepam (Ativan) 0.5 mg PO Q8 [facility] Last Admin: 12/28/17 14:47 Dose: Not Given Magnesium Chloride (Slow-Mag) 64 mg PO DAILY [facility] Last Admin: 12/28/17 10:30 Dose: Not Given Methylprednisolone (Solu-Medrol) 40 mg IV DAILY [facility] Last Admin: 12/28/17 10:36 Dose: 40 mg Pantoprazole Sodium (Protonix Inj) 40 mg IVP BID [facility] Last Admin: 12/28/17 10:36 Dose: 40 mg Rifampin (Rifampin Cap) 300 mg PO BID [facility] PRN Reason: Protocol Last Admin: 12/28/17 10:30 Dose: Not Given Rosuvastatin Calcium (Crestor) 10 mg PO HS [facility] Last Admin: 12/27/17 22:01 Dose: 10 mg Saccharomyces Boulardii (Florastor) 250 mg PO BID [facility] Last Admin: 12/28/17 10:30 Dose: Not Given Fluticasone/Salmeterol (Advair Diskus 250/50) 1 puff INH RQ12 [facility] Last Admin: 12/28/17 07:27 Dose: Not Given Vancomycin HCl (Vancocin (Oral Or Rectal Use)) 250 mg PO QID [facility] PRN Reason: Protocol Last Admin: 12/28/17 14:47 Dose: Not Given Vitamin A (Vitamin A & D Oint Ud Foilpak) 1 ea EXT Q8 PRN PRN Reason: Dry SKIN Last Admin: 12/23/17 17:24 Dose: 1 ea - Labs Labs: 12/28/17 06:11 12/28/17 06:11 PT 14.5 SECONDS (9.7-12.2) H 12/28/17 06:11 INR 1.3 12/28/17 06:11 APTT 29 SECONDS (21-34) 12/28/17 06:11 - Constitutional Appears: In Acute Distress, Chronically Ill - Head Exam Head Exam: ATRAUMATIC, NORMAL INSPECTION, NORMOCEPHALIC - Eye Exam Eye Exam: EOMI, Normal appearance, PERRL Pupil Exam: NORMAL ACCOMODATION, PERRL - ENT Exam ENT Exam: Mucous Membranes Dry - Neck Exam Neck Exam: Normal Inspection - Respiratory Exam Respiratory Exam: Accessory Muscle Use, Decreased Breath Sounds, Respiratory Distress - Cardiovascular Exam Cardiovascular Exam: Tachycardia - GI/Abdominal Exam GI & Abdominal Exam: Hyperactive Bowel Sounds Additional comments: dark loose stool - Rectal Exam Rectal Exam: Black Stool - Extremities Exam Extremities Exam: Normal Inspection - Back Exam Back Exam: NORMAL INSPECTION - Neurological Exam Neurological Exam: Alert, Altered Neuro motor strength exam: Left Upper Extremity: 2/, Right Upper Extremity: 2/ , Left Lower Extremity: 2/, Right Lower Extremity: 2/ - Psychiatric Exam Psychiatric exam: Flat Affect - Skin Skin Exam: Normal Color, Warm Assessment and Plan - Assessment and Plan (Free Text) Assessment: Patient examined in bed. Patient is shivering. Patient looks very ill and cachectic. NPO since last night for colonoscopy. Now on IVF.Temperature normal. Hb 9.6, WBC 14. Patient is very tachycardic and tachypneic. Per nursing, patient is much less alert today than yesterday. Na low at 126. Large amount of loose, dark stool at the bag. ICU team feels that patient does not make any progress despite all prudent Medical interventions provided. Doctor Amanda agreed. I met today at 3 pm with patient's son Francois. I reviewed patient;s clinical presentation and shared above mentioned, impression. I discussed possibility of feeding via NGT as Palliative measure, and symptoms control. Srikanth felt that his mother had suffered enough and he would not want her to suffer any further. He releazide, his mother's condition had declined significantly. I suggested that patient may faster if we do not provide any form of nutrition and hydration. Fabio stated understanding and asked us to only make sure his mother dies comfortably. This was shared with Galina OLIVERA, and Ana TSE. Per Ana [facility]CRETE [facility] MASON, Doctor Amanda agreed with Hospice. Impression * Chronically ill lady approaching end of her life * Patient's condition has not improved despite all interventions * Son does not want use of any more aggressive treatment * Son advocates for natural and comfort measures only Suggestion * I agree with comfort measures only as I do not feel that patient will have meaningful recovery, as she is too sick and weak * Symptoms control only * No artificial feedings/IV fluids Advance planing time 30 min
--- NOTE | 2017-12-28 15:32 | CP.PCM.PN ---
Subjective - Date & Time of Evaluation Date of Evaluation: 12/28/17 Time of Evaluation: 15:24 - Subjective Subjective: GI Fellow PGY4, Progress note. Patient seen and examined at bedside. Colonoscopy planned today however it was not felt patient was stable enough for procedure. Case discussed with primary and GI attending. She is still receiving blood products. Unable to complete 12pt ROS due to AMS, BiPAP. Objective - Vital Signs/Intake and Output Vital Signs (last 24 hours): Temp Pulse Resp BP Pulse Ox 98.3 F 101 H 41 H 126/73 100 12/28/17 12:00 12/28/17 14:00 12/28/17 14:00 12/28/17 11:35 12/28/17 14:00 Intake and Output: 12/28/17 12/28/17 06:59 18:59 Intake Total 1150 Output Total 1100 Balance 50 - Medications Medications: Current Medications Albuterol/Ipratropium (Duoneb 3 Mg/0.5 Mg (3 Ml) Ud) 3 ml INH RQ6 [facility] Last Admin: 12/28/17 07:27 Dose: 3 ml Cholestyramine Resin (Questran) 4 gm PO QID [facility] Last Admin: 12/28/17 14:47 Dose: Not Given Diltiazem HCl (Cardizem) 30 mg NG Q6H [facility] Last Admin: 12/28/17 14:45 Dose: Not Given Cefepime HCl (Maxipime Iv 1 Gm Premix) 1 gm in 50 mls @ 100 mls/hr IVPB Q24H [facility] PRN Reason: Protocol Last Admin: 12/27/17 17:10 Dose: 100 mls/hr Metronidazole (Flagyl) 500 mg in 100 mls @ 100 mls/hr IVPB Q8 [facility] PRN Reason: Protocol Last Admin: 12/28/17 06:06 Dose: 100 mls/hr Dextrose/Sodium Chloride (Dextrose 5%/0.45% Ns 1000 Ml) 1,000 mls @ 60 mls/hr IV .[id number] [facility] Last Admin: 12/28/17 04:21 Dose: 60 mls/hr Levothyroxine Sodium (Synthroid) 100 mcg PO 0630 [facility] Last Admin: 12/28/17 06:06 Dose: Not Given Lorazepam (Ativan) 0.5 mg PO Q8 [facility] Last Admin: 12/28/17 14:47 Dose: Not Given Magnesium Chloride (Slow-Mag) 64 mg PO DAILY [facility] Last Admin: 12/28/17 10:30 Dose: Not Given Methylprednisolone (Solu-Medrol) 40 mg IV DAILY [facility] Last Admin: 12/28/17 10:36 Dose: 40 mg Pantoprazole Sodium (Protonix Inj) 40 mg IVP BID [facility] Last Admin: 12/28/17 10:36 Dose: 40 mg Rifampin (Rifampin Cap) 300 mg PO BID [facility] PRN Reason: Protocol Last Admin: 12/28/17 10:30 Dose: Not Given Rosuvastatin Calcium (Crestor) 10 mg PO HS [facility] Last Admin: 12/27/17 22:01 Dose: 10 mg Saccharomyces Boulardii (Florastor) 250 mg PO BID [facility] Last Admin: 12/28/17 10:30 Dose: Not Given Fluticasone/Salmeterol (Advair Diskus 250/50) 1 puff INH RQ12 [facility] Last Admin: 12/28/17 07:27 Dose: Not Given Vancomycin HCl (Vancocin (Oral Or Rectal Use)) 250 mg PO QID [facility] PRN Reason: Protocol Last Admin: 12/28/17 14:47 Dose: Not Given Vitamin A (Vitamin A & D Oint Ud Foilpak) 1 ea EXT Q8 PRN PRN Reason: Dry SKIN Last Admin: 12/23/17 17:24 Dose: 1 ea - Labs Labs: 12/28/17 06:11 12/28/17 06:11 PT 14.5 SECONDS (9.7-12.2) H 12/28/17 06:11 INR 1.3 12/28/17 06:11 APTT 29 SECONDS (21-34) 12/28/17 06:11 - Constitutional Appears: No Acute Distress, Confused, Chronically Ill - Head Exam Head Exam: ATRAUMATIC, NORMAL INSPECTION, NORMOCEPHALIC - Eye Exam Eye Exam: EOMI, PERRL - ENT Exam ENT Exam: Mucous Membranes Moist, Normal Exam - Respiratory Exam Respiratory Exam: Clear to Ausculation Bilateral, NORMAL BREATHING PATTERN. absent: Wheezes Additional comments: BiPAP - Cardiovascular Exam Cardiovascular Exam: REGULAR RHYTHM, +S1, +S2 - GI/Abdominal Exam GI & Abdominal Exam: Soft. absent: Distended, Tenderness Additional comments: Rectal tube in place with dark liquid stool. - Neurological Exam Neurological Exam: Altered. absent: Alert, Oriented x3 - Psychiatric Exam Psychiatric exam: Agitated. absent: Normal Affect, Normal Mood - Skin Skin Exam: Dry, Intact, Warm Assessment and Plan - Assessment and Plan (Free Text) Assessment: 82F with hx of COPD, gastritis, duodenal ulcers and CDiff with signs of gi bleed #C. Difficile infection #Acute blood loss anemia due to GI bleed #Duodenal ulcer #Gastritis #COPD #HTN #Anxiety Plan: -Continue supportive care -CT abd/pelv findings noted -C. Diff Ag and Tox negative as of 12/25/17 -EGD 12/26/17 benign w/out evidence for cause of active rectal bleeding -Possible Lower GI bleed (colitis) vs small bowel bleed. -Continue PPI IV BID -Continue C. diff managment: Flagyl, oral vano and rifampin -Monitor H/H and transfuse for Hb less than 7. -Continue all other care per primary and ICU team. -Colonoscopy on hold as patient clinically unstable. Discussed plan of care with primary attending. -Further management pending clinical progress. We will continue to monitor patient course.
--- NOTE | 2017-12-28 17:41 | CP.PCM.PN ---
Subjective - Date & Time of Evaluation Date of Evaluation: 12/28/17 Time of Evaluation: 11:45 - Subjective Subjective: Patient examined this morning at the bedside. Patient is awake but unable to follow commands. Patient is not in acute distress. Patient has improved breathing. Patient is afebrile. ROS: Constitutional: Negative for fever and chills. Cardiovascular: Negative chest pain, palpitations. Respiratory: Negative for shortness of breath or cough. Gastrointestinal: Negative for nausea, vomiting, diarrhea. Physical Exam HEENT: Atraumatic, normocephalic, mucuous membranes moist Repiratory: Clear to auscultation bilaterally. No wheezing or rhonchi. No use of accessory muscles. Cardiovascular: +S1/ S2, regular rate and rhythm GI: Normal bowel sounds in all 4 quadrants, no tenderness, no distention Extremities: No LE edema Neurological: Alert and awake Assessment: 82 year old female with PMHx of CHF, dementia, anxiety, COPD, and HTN. Patient' s exam consistent with COPD and C. difficile colitis which is resolving with treatment. 1. C. difficile colitis Status: Acute - Continue ID antibiotic recommendations 2. COPD Exacerbation Status: Chronic - Albuterol/ Ipratropium 3 ml INH RQ6 - Continue BiPAP as needed Objective - Vital Signs/Intake and Output Vital Signs (last 24 hours): Temp Pulse Resp BP Pulse Ox 98.3 F 98 H 41 H 126/73 100 12/28/17 12:00 12/28/17 16:45 12/28/17 14:00 12/28/17 11:35 12/28/17 14:00 Intake and Output: 12/28/17 12/28/17 06:59 18:59 Intake Total 1150 Output Total 1100 Balance 50 - Medications Medications: Current Medications Albuterol/Ipratropium (Duoneb 3 Mg/0.5 Mg (3 Ml) Ud) 3 ml INH RQ6 [facility] Last Admin: 12/28/17 07:27 Dose: 3 ml Cholestyramine Resin (Questran) 4 gm PO QID [facility] Last Admin: 12/28/17 14:47 Dose: Not Given Diltiazem HCl (Cardizem) 30 mg NG Q6H [facility] Last Admin: 12/28/17 14:45 Dose: Not Given Cefepime HCl (Maxipime Iv 1 Gm Premix) 1 gm in 50 mls @ 100 mls/hr IVPB Q24H [facility] PRN Reason: Protocol Last Admin: 12/27/17 17:10 Dose: 100 mls/hr Metronidazole (Flagyl) 500 mg in 100 mls @ 100 mls/hr IVPB Q8 [facility] PRN Reason: Protocol Last Admin: 12/28/17 06:06 Dose: 100 mls/hr Dextrose/Sodium Chloride (Dextrose 5%/0.45% Ns 1000 Ml) 1,000 mls @ 60 mls/hr IV .[id number] [facility] Last Admin: 12/28/17 04:21 Dose: 60 mls/hr Levothyroxine Sodium (Synthroid) 100 mcg PO 0630 [facility] Last Admin: 12/28/17 06:06 Dose: Not Given Lorazepam (Ativan) 0.5 mg PO Q8 [facility] Last Admin: 12/28/17 14:47 Dose: Not Given Magnesium Chloride (Slow-Mag) 64 mg PO DAILY [facility] Last Admin: 12/28/17 10:30 Dose: Not Given Methylprednisolone (Solu-Medrol) 40 mg IV DAILY [facility] Last Admin: 12/28/17 10:36 Dose: 40 mg Pantoprazole Sodium (Protonix Inj) 40 mg IVP BID [facility] Last Admin: 12/28/17 10:36 Dose: 40 mg Rifampin (Rifampin Cap) 300 mg PO BID [facility] PRN Reason: Protocol Last Admin: 12/28/17 10:30 Dose: Not Given Rosuvastatin Calcium (Crestor) 10 mg PO HS [facility] Last Admin: 12/27/17 22:01 Dose: 10 mg Saccharomyces Boulardii (Florastor) 250 mg PO BID [facility] Last Admin: 12/28/17 10:30 Dose: Not Given Fluticasone/Salmeterol (Advair Diskus 250/50) 1 puff INH RQ12 [facility] Last Admin: 12/28/17 07:27 Dose: Not Given Vancomycin HCl (Vancocin (Oral Or Rectal Use)) 250 mg PO QID [facility] PRN Reason: Protocol Last Admin: 12/28/17 14:47 Dose: Not Given Vitamin A (Vitamin A & D Oint Ud Foilpak) 1 ea EXT Q8 PRN PRN Reason: Dry SKIN Last Admin: 12/23/17 17:24 Dose: 1 ea - Labs Labs: 12/28/17 06:11 12/28/17 06:11 PT 14.5 SECONDS (9.7-12.2) H 12/28/17 06:11 INR 1.3 12/28/17 06:11 APTT 29 SECONDS (21-34) 12/28/17 06:11 Assessment and Plan (1) C. difficile colitis Status: Acute (2) COPD exacerbation Status: Acute (3) Dehydration Status: Acute
[2017-12-28] MEDS: Cefepime IV 1 gm in Dextrose 1 GM/50 ML BAG IVPB SCH (18:18)
--- NOTE | 2017-12-28 19:50 | CP.PCM.PN ---
Subjective - Date & Time of Evaluation Date of Evaluation: 12/28/17 Time of Evaluation: 19:50 - Subjective Subjective: CHIEF COMPLAINTS TODAY : AFEBRILE. AWAKE BUT LETHARGIC. OFF/AND ON BIPAP. TACHYCARDIC. NONVERBAL DUE TO ADVANCED DEMENTIA. ROS. on observation only. HEENT : N. Resp : NO SOB,NO wheezing ,pleuritic CP ,or hemoptysis Cardio : No anginal CP, PND, orthopnea, palpitation GI : No abd.pain, n/v ,diarrhea or GI bleeding . DB2 DEVELOPER : No headache, vertigo, focal deficit. Musculoskel : No joint swelling , Derm : No rash Psych : Normal affect. Ext : No swelling ,calf pain PE. Pt. is awake ,PRESENTLY NOT IN ACUTE DISTRESS V.S As noted in the chart Head ,ear nose,throat and eyes : Normal. Neck : Supple with normal carotids. Lungs: DIMINISHED BREATH SOUNDS AT THE BASES Heart : S1 & S2 IRREGULAR.. Abd : Soft non tender with normal bowel sounds. Neuro : Moves all ext. with no localized deficit. Ext : +ve b/l EDEMA 2+ with intact pulses.Non tender calves Derm : No rashes or decubitus ulcer. LABS/RADIOLOGY: REVIEWED CXR 12/26/17 -stable lower lobe infiltrates with bilateral pleural effusion left larger than right WBC 14.0 IMPROVING rENAL FUNCTIONS STABLE STOOL FOR c. DIFFICILE NEGATIVE 12/26/17 URINE CULTURES 12/25/17 REPEAT +VE YEAST URINE CULTURE +VE YEAST 12/19/17 BLOOD CULTURE 12/22/17 -VE 3 DAYS VIA CC Objective - Vital Signs/Intake and Output Vital Signs (last 24 hours): Temp Pulse Resp BP Pulse Ox 97.2 F L 102 H 41 H 126/73 100 12/28/17 18:00 12/28/17 18:00 12/28/17 14:00 12/28/17 11:35 12/28/17 14:00 Intake and Output: 12/28/17 12/29/17 18:59 06:59 Intake Total 0 Output Total 1300 Balance -1300 - Medications Medications: Current Medications Albuterol/Ipratropium (Duoneb 3 Mg/0.5 Mg (3 Ml) Ud) 3 ml INH RQ6 [facility] Last Admin: 12/28/17 07:27 Dose: 3 ml Cholestyramine Resin (Questran) 4 gm PO QID [facility] Last Admin: 12/28/17 17:52 Dose: Not Given Diltiazem HCl (Cardizem) 30 mg NG Q6H [facility] Last Admin: 12/28/17 17:52 Dose: Not Given Cefepime HCl (Maxipime Iv 1 Gm Premix) 1 gm in 50 mls @ 100 mls/hr IVPB Q24H [facility] PRN Reason: Protocol Last Admin: 12/28/17 18:18 Dose: 100 mls/hr Metronidazole (Flagyl) 500 mg in 100 mls @ 100 mls/hr IVPB Q8 [facility] PRN Reason: Protocol Last Admin: 12/28/17 14:00 Dose: 100 mls/hr Dextrose/Sodium Chloride (Dextrose 5%/0.45% Ns 1000 Ml) 1,000 mls @ 60 mls/hr IV .[id number] [facility] Last Admin: 12/28/17 18:17 Dose: Not Given Levothyroxine Sodium (Synthroid) 100 mcg PO 0630 [facility] Last Admin: 12/28/17 06:06 Dose: Not Given Lorazepam (Ativan) 0.5 mg PO Q8 [facility] Last Admin: 12/28/17 14:47 Dose: Not Given Magnesium Chloride (Slow-Mag) 64 mg PO DAILY [facility] Last Admin: 12/28/17 10:30 Dose: Not Given Methylprednisolone (Solu-Medrol) 40 mg IV DAILY [facility] Last Admin: 12/28/17 10:36 Dose: 40 mg Pantoprazole Sodium (Protonix Inj) 40 mg IVP BID [facility] Last Admin: 12/28/17 18:18 Dose: 40 mg Rifampin (Rifampin Cap) 300 mg PO BID [facility] PRN Reason: Protocol Last Admin: 12/28/17 17:53 Dose: Not Given Rosuvastatin Calcium (Crestor) 10 mg PO HS [facility] Last Admin: 12/27/17 22:01 Dose: 10 mg Saccharomyces Boulardii (Florastor) 250 mg PO BID [facility] Last Admin: 12/28/17 17:52 Dose: Not Given Fluticasone/Salmeterol (Advair Diskus 250/50) 1 puff INH RQ12 [facility] Last Admin: 12/28/17 07:27 Dose: Not Given Vancomycin HCl (Vancocin (Oral Or Rectal Use)) 250 mg PO QID [facility] PRN Reason: Protocol Last Admin: 12/28/17 18:19 Dose: 250 mg Vitamin A (Vitamin A & D Oint Ud Foilpak) 1 ea EXT Q8 PRN PRN Reason: Dry SKIN Last Admin: 12/23/17 17:24 Dose: 1 ea - Labs Labs: 12/28/17 06:11 12/28/17 06:11 PT 14.5 SECONDS (9.7-12.2) H 12/28/17 06:11 INR 1.3 12/28/17 06:11 APTT 29 SECONDS (21-34) 12/28/17 06:11 Assessment and Plan (1) Pneumonia Assessment & Plan: ON IV mAXIPEME 1 G EVERY 24 HOURLY 12/22/17. cONTINUE iv fLAGYL 500 EVERY 8 HOURLY. F/U SPUTUM CULTURE/AND GRAM STAIN. PULMONARY TOILET. PT DNR/DNI NOTED. Status: Acute (2) C. difficile colitis Assessment & Plan: REPEAT STOOL c. DIFFICILE NEGATIVE. 12/26/17, 12/25 COLONOSCOPY CANCELED TODAY PER GI pATIENT NOT STABLE. CONTINUE BY MOUTH VANCOMYCIN 250 MG 4 TIMES A DAY PER GI , Status: Acute (3) Dehydration Status: Acute (4) Hypernatremia Status: Resolved (5) Atrial fibrillation with rapid ventricular response Status: Acute (6) Breast mass, left Status: Acute (7) Candiduria Assessment & Plan: PT HAS CANDIDUREA 12/25/17 ADD IV DIFLUCAN 100MG IV OD DAILY X 5DAYS Status: Acute (8) GIB (gastrointestinal bleeding) Status: Acute
--- NOTE | 2017-12-28 21:24 | PN ---
DATE: 12/28/2017 SUBJECTIVE: The patient's scheduled colonoscopy was canceled and the son requested the patient goes to hospice. The patient is currently on BiPAP, and the monitor revealed sinus tachycardia with frequent APCs. PHYSICAL EXAMINATION: VITAL SIGNS: Blood pressure 126/73, temperature 97.5, heart rate 102. HEENT: Pale conjunctivae. CHEST: Bilateral rhonchi. HEART: S1 and S2 regular. EXTREMITIES: 1+ pitting edema. LABORATORY DATA: Today's SMA-7 is within normal limits except for glucose of 127. Anion gap of 7. Today's calcium is 7.4. Today's hemoglobin and hematocrit 9.6 and 27.3, white count 14, platelet count 232,000. ASSESSMENT: 1. Atrial tachycardia with periods of multifocal atrial tachycardia. 2. Chronic obstructive lung disease. 3. Anemia. 4. Clostridium difficile colitis. 5. Hyponatremia and hypocalcemia. 6. Borderline troponin elevation. RECOMMENDATIONS: Continue current Crestor at 10 mg once a day, albuterol inhaler every 6 hours p.r.n., IV 500 mg every 8 hours, Protonix 40 mg intravenously twice a day, IV Maxipime 1 gm daily, Solu-Medrol 40 mg intravenously daily. No further cardiac workup is justified or indicated. Tru Vinson MD
[2017-12-29] MEDS: Albuterol-Ipratrop 3 mg / 0.5 (3 ml) UD INH SCH ×4 (01:02→19:17)
[2017-12-29] MEDS: metroNIDAZOLE IV 500 mg/100 ml 500 MG/100 ML BAG IVPB SCH ×3 (05:27→21:27)
[2017-12-29] MEDS: Levothyroxine 100 MCG TAB PO SCH (05:29)
--- NOTE | 2017-12-29 07:36 | CP.PCM.PN ---
Subjective - Date & Time of Evaluation Date of Evaluation: 12/28/17 Time of Evaluation: 19:00 - Subjective Subjective: Pt seen and examined at bedside Objective - Vital Signs/Intake and Output Vital Signs (last 24 hours): Temp Pulse Resp BP Pulse Ox 97.7 F 86 15 117/60 100 12/29/17 06:00 12/29/17 06:39 12/29/17 06:00 12/29/17 06:00 12/29/17 06:00 Intake and Output: 12/29/17 12/29/17 06:59 18:59 Intake Total 320 Output Total 850 Balance -530 - Medications Medications: Current Medications Albuterol/Ipratropium (Duoneb 3 Mg/0.5 Mg (3 Ml) Ud) 3 ml INH RQ6 [facility] Last Admin: 12/29/17 01:02 Dose: 3 ml Cholestyramine Resin (Questran) 4 gm PO QID [facility] Last Admin: 12/28/17 22:03 Dose: 4 gm Diltiazem HCl (Cardizem) 30 mg NG Q6H [facility] Last Admin: 12/29/17 05:29 Dose: 30 mg Cefepime HCl (Maxipime Iv 1 Gm Premix) 1 gm in 50 mls @ 100 mls/hr IVPB Q24H [facility] PRN Reason: Protocol Last Admin: 12/28/17 18:18 Dose: 100 mls/hr Metronidazole (Flagyl) 500 mg in 100 mls @ 100 mls/hr IVPB Q8 [facility] PRN Reason: Protocol Last Admin: 12/29/17 05:27 Dose: 100 mls/hr Fluconazole (Diflucan Iv 100 Mg/50 Ml Ns) 50 mls @ 50 mls/hr IVPB DAILY [facility] PRN Reason: Protocol Levothyroxine Sodium (Synthroid) 100 mcg PO 0630 [facility] Last Admin: 12/29/17 05:29 Dose: 100 mcg Lorazepam (Ativan) 0.5 mg PO Q8 [facility] Last Admin: 12/29/17 05:29 Dose: 0.5 mg Magnesium Chloride (Slow-Mag) 64 mg PO DAILY [facility] Last Admin: 12/28/17 10:30 Dose: Not Given Methylprednisolone (Solu-Medrol) 40 mg IV DAILY [facility] Last Admin: 12/28/17 10:36 Dose: 40 mg Pantoprazole Sodium (Protonix Inj) 40 mg IVP BID [facility] Last Admin: 12/28/17 18:18 Dose: 40 mg Rifampin (Rifampin Cap) 300 mg PO BID [facility] PRN Reason: Protocol Last Admin: 12/28/17 17:53 Dose: Not Given Rosuvastatin Calcium (Crestor) 10 mg PO HS [facility] Last Admin: 12/28/17 22:03 Dose: 10 mg Saccharomyces Boulardii (Florastor) 250 mg PO BID [facility] Last Admin: 12/28/17 17:52 Dose: Not Given Fluticasone/Salmeterol (Advair Diskus 250/50) 1 puff INH RQ12 [facility] Last Admin: 12/28/17 20:11 Dose: Not Given Vancomycin HCl (Vancocin (Oral Or Rectal Use)) 250 mg PO QID [facility] PRN Reason: Protocol Last Admin: 12/28/17 22:03 Dose: 250 mg Vitamin A (Vitamin A & D Oint Ud Foilpak) 1 ea EXT Q8 PRN PRN Reason: Dry SKIN Last Admin: 12/23/17 17:24 Dose: 1 ea - Labs Labs: 12/28/17 06:11 12/28/17 06:11 PT 14.5 SECONDS (9.7-12.2) H 12/28/17 06:11 INR 1.3 12/28/17 06:11 APTT 29 SECONDS (21-34) 12/28/17 06:11 Assessment and Plan (1) C. difficile colitis Status: Acute (2) Dehydration Status: Acute (3) Septicemia Status: Acute (4) Anxiety Status: Acute (5) COPD (chronic obstructive pulmonary disease) Status: Acute (6) Depressed Status: Acute (7) Diarrhea Status: Acute (8) HTN (hypertension) Status: Acute
[2017-12-29] MEDS: Fluticasone-Salmeterol 250-50mcg Diskus INH SCH ×2 (08:20→19:17)
[2017-12-29] MEDS: Vancomycin 125 MG/5 ML SOLN (ORAL/RECTAL) PO SCH ×4 (09:50→21:27)
[2017-12-29] MEDS: Cholestyramine 4 gm/Pkt UD PO SCH ×4 (09:50→21:27)
[2017-12-29] MEDS: Saccharomyces Boulardi 250 mg Cap PO SCH ×2 (09:51→18:19)
[2017-12-29] MEDS: MethylPREDNISolone 40 mg Vial IV SCH (09:52)
[2017-12-29] MEDS: Magnesium Chloride 64 mg ER Tab PO SCH (09:52)
[2017-12-29] MEDS: Fluconazole IV 100mg/50 ml NS 50 ML IVPB SCH (09:53)
--- NOTE | 2017-12-29 10:01 | CP.PCM.PN ---
Subjective - Date & Time of Evaluation Date of Evaluation: 12/29/17 Time of Evaluation: 09:58 - Subjective Subjective: GI Fellow PGY4, progress note. No colonoscopy. Charts report son would like hospice care. She is also developing a pressure ulcer. Unable to obtain 12pt ROS due to AMS Objective - Vital Signs/Intake and Output Vital Signs (last 24 hours): Temp Pulse Resp BP Pulse Ox 97.7 F 92 H 15 117/60 100 12/29/17 06:00 12/29/17 08:22 12/29/17 06:00 12/29/17 06:00 12/29/17 06:00 Intake and Output: 12/29/17 12/29/17 06:59 18:59 Intake Total 320 Output Total 850 Balance -530 - Medications Medications: Current Medications Albuterol/Ipratropium (Duoneb 3 Mg/0.5 Mg (3 Ml) Ud) 3 ml INH RQ6 [facility] Last Admin: 12/29/17 08:21 Dose: 3 ml Cholestyramine Resin (Questran) 4 gm PO QID [facility] Last Admin: 12/28/17 22:03 Dose: 4 gm Diltiazem HCl (Cardizem) 30 mg NG Q6H [facility] Last Admin: 12/29/17 05:29 Dose: 30 mg Cefepime HCl (Maxipime Iv 1 Gm Premix) 1 gm in 50 mls @ 100 mls/hr IVPB Q24H [facility] PRN Reason: Protocol Last Admin: 12/28/17 18:18 Dose: 100 mls/hr Metronidazole (Flagyl) 500 mg in 100 mls @ 100 mls/hr IVPB Q8 [facility] PRN Reason: Protocol Last Admin: 12/29/17 05:27 Dose: 100 mls/hr Fluconazole (Diflucan Iv 100 Mg/50 Ml Ns) 50 mls @ 50 mls/hr IVPB DAILY [facility] PRN Reason: Protocol Levothyroxine Sodium (Synthroid) 100 mcg PO 0630 [facility] Last Admin: 12/29/17 05:29 Dose: 100 mcg Lorazepam (Ativan) 0.5 mg PO Q8 [facility] Last Admin: 12/29/17 05:29 Dose: 0.5 mg Magnesium Chloride (Slow-Mag) 64 mg PO DAILY [facility] Last Admin: 12/28/17 10:30 Dose: Not Given Methylprednisolone (Solu-Medrol) 40 mg IV DAILY [facility] Last Admin: 12/28/17 10:36 Dose: 40 mg Pantoprazole Sodium (Protonix Inj) 40 mg IVP BID [facility] Last Admin: 12/28/17 18:18 Dose: 40 mg Rifampin (Rifampin Cap) 300 mg PO BID [facility] PRN Reason: Protocol Last Admin: 12/28/17 17:53 Dose: Not Given Rosuvastatin Calcium (Crestor) 10 mg PO HS [facility] Last Admin: 12/28/17 22:03 Dose: 10 mg Saccharomyces Boulardii (Florastor) 250 mg PO BID [facility] Last Admin: 12/28/17 17:52 Dose: Not Given Fluticasone/Salmeterol (Advair Diskus 250/50) 1 puff INH RQ12 [facility] Last Admin: 12/29/17 08:20 Dose: Not Given Vancomycin HCl (Vancocin (Oral Or Rectal Use)) 250 mg PO QID [facility] PRN Reason: Protocol Last Admin: 12/28/17 22:03 Dose: 250 mg Vitamin A (Vitamin A & D Oint Ud Foilpak) 1 ea EXT Q8 PRN PRN Reason: Dry SKIN Last Admin: 12/23/17 17:24 Dose: 1 ea - Labs Labs: 12/28/17 06:11 12/28/17 06:11 PT 14.5 SECONDS (9.7-12.2) H 12/28/17 06:11 INR 1.3 12/28/17 06:11 APTT 29 SECONDS (21-34) 12/28/17 06:11 - Constitutional Appears: No Acute Distress, Confused, Chronically Ill - Head Exam Head Exam: ATRAUMATIC, NORMAL INSPECTION, NORMOCEPHALIC - Eye Exam Eye Exam: EOMI, Normal appearance, PERRL - ENT Exam ENT Exam: Mucous Membranes Moist, Normal Exam - Respiratory Exam Respiratory Exam: Clear to Ausculation Bilateral, NORMAL BREATHING PATTERN. absent: Wheezes - Cardiovascular Exam Cardiovascular Exam: REGULAR RHYTHM, +S1, +S2 - GI/Abdominal Exam GI & Abdominal Exam: Soft, Normal Bowel Sounds. absent: Tenderness - Extremities Exam Extremities Exam: Full ROM, Normal Capillary Refill, Normal Inspection. absent : Joint Swelling, Pedal Edema - Neurological Exam Neurological Exam: Awake. absent: Alert, Oriented x3 - Psychiatric Exam Psychiatric exam: absent: Normal Affect, Normal Mood - Skin Skin Exam: Dry, Intact Assessment and Plan - Assessment and Plan (Free Text) Assessment: 82F with hx of COPD, gastritis, duodenal ulcers and CDiff with signs of gi bleed #C. Difficile infection #Acute blood loss anemia due to GI bleed #Duodenal ulcer #Gastritis #COPD #HTN #Anxiety #Sacral ulcer Plan: -Continue supportive care -CT abd/pelv findings noted -C. Diff Ag and Tox negative as of 12/25/17 -EGD 12/26/17 benign w/out evidence for cause of active rectal bleeding -Possible Lower GI bleed (colitis) vs small bowel bleed. -Continue PPI IV BID -Continue C. diff managment: Flagyl, oral vano and rifampin -Continue all other care per primary and ICU team. -Agree with hospice consult. -No endoscopic procedures planned. -Restart tube feeding -At this point we will follow peripherally. Please call for any urgent needs.
--- NOTE | 2017-12-29 12:33 | CP.PCM.PN ---
Subjective - Date & Time of Evaluation Date of Evaluation: 12/29/17 Time of Evaluation: 09:00 - Subjective Subjective: Patient examined this morning at the bedside. Patient is not in acute distress. Patient is currently on BiPAP with improved breathing. Patient is afebrile. Patient waiting for hospice per son's request. ROS: Constitutional: Negative for fever and chills. Cardiovascular: Negative chest pain, palpitations. Respiratory: Negative for shortness of breath or cough. Gastrointestinal: Negative for nausea, vomiting, diarrhea. Physical Exam HEENT: Atraumatic, normocephalic, mucuous membranes moist Repiratory: Clear to auscultation bilaterally. No wheezing or rhonchi. No use of accessory muscles. Cardiovascular: +S1/ S2, regular rate and rhythm GI: Normal bowel sounds in all 4 quadrants, no tenderness, no distention Extremities: No LE edema Neurological: Alert and awake Assessment: 82 year old female with PMHx of CHF, dementia, anxiety, COPD, and HTN. Patient' s exam consistent with COPD and C. difficile colitis which is resolving with treatment. 1. C. difficile colitis Status: Acute - Continue ID antibiotic recommendations 2. COPD Exacerbation Status: Chronic - Albuterol/ Ipratropium 3 ml INH RQ6 - Continue BiPAP as needed Objective - Vital Signs/Intake and Output Vital Signs (last 24 hours): Temp Pulse Resp BP Pulse Ox 98.1 F 109 H 15 117/60 100 12/29/17 10:00 12/29/17 10:00 12/29/17 06:00 12/29/17 06:00 12/29/17 06:00 Intake and Output: 12/29/17 12/29/17 06:59 18:59 Intake Total 320 Output Total 850 Balance -530 - Medications Medications: Current Medications Albuterol/Ipratropium (Duoneb 3 Mg/0.5 Mg (3 Ml) Ud) 3 ml INH RQ6 [facility] Last Admin: 12/29/17 08:21 Dose: 3 ml Cholestyramine Resin (Questran) 4 gm PO QID [facility] Last Admin: 12/29/17 09:50 Dose: 4 gm Diltiazem HCl (Cardizem) 30 mg NG Q6H [facility] Last Admin: 12/29/17 11:51 Dose: 30 mg Cefepime HCl (Maxipime Iv 1 Gm Premix) 1 gm in 50 mls @ 100 mls/hr IVPB Q24H [facility] PRN Reason: Protocol Last Admin: 12/28/17 18:18 Dose: 100 mls/hr Metronidazole (Flagyl) 500 mg in 100 mls @ 100 mls/hr IVPB Q8 [facility] PRN Reason: Protocol Last Admin: 12/29/17 05:27 Dose: 100 mls/hr Fluconazole (Diflucan Iv 100 Mg/50 Ml Ns) 50 mls @ 50 mls/hr IVPB DAILY [facility] PRN Reason: Protocol Last Admin: 12/29/17 09:53 Dose: 50 mls/hr Levothyroxine Sodium (Synthroid) 100 mcg PO 0630 [facility] Last Admin: 12/29/17 05:29 Dose: 100 mcg Lorazepam (Ativan) 0.5 mg PO Q8 [facility] Last Admin: 12/29/17 05:29 Dose: 0.5 mg Magnesium Chloride (Slow-Mag) 64 mg PO DAILY [facility] Last Admin: 12/29/17 09:52 Dose: 64 mg Methylprednisolone (Solu-Medrol) 40 mg IV DAILY [facility] Last Admin: 12/29/17 09:52 Dose: 40 mg Pantoprazole Sodium (Protonix Inj) 40 mg IVP BID [facility] Last Admin: 12/29/17 09:53 Dose: 40 mg Rifampin (Rifampin Cap) 300 mg PO BID [facility] PRN Reason: Protocol Last Admin: 12/29/17 09:53 Dose: 300 mg Rosuvastatin Calcium (Crestor) 10 mg PO HS [facility] Last Admin: 12/28/17 22:03 Dose: 10 mg Saccharomyces Boulardii (Florastor) 250 mg PO BID [facility] Last Admin: 12/29/17 09:51 Dose: 250 mg Fluticasone/Salmeterol (Advair Diskus 250/50) 1 puff INH RQ12 [facility] Last Admin: 12/29/17 08:20 Dose: Not Given Vancomycin HCl (Vancocin (Oral Or Rectal Use)) 250 mg PO QID [facility] PRN Reason: Protocol Last Admin: 12/29/17 09:50 Dose: 250 mg Vitamin A (Vitamin A & D Oint Ud Foilpak) 1 ea EXT Q8 PRN PRN Reason: Dry SKIN Last Admin: 12/23/17 17:24 Dose: 1 ea - Labs Labs: 12/28/17 06:11 12/28/17 06:11 PT 14.5 SECONDS (9.7-12.2) H 12/28/17 06:11 INR 1.3 12/28/17 06:11 APTT 29 SECONDS (21-34) 12/28/17 06:11 Assessment and Plan (1) C. difficile colitis Status: Acute (2) COPD exacerbation Status: Acute (3) Dehydration Status: Acute
[2017-12-29] MEDS: Cefepime IV 1 gm in Dextrose 1 GM/50 ML BAG IVPB SCH (18:37)
--- NOTE | 2017-12-29 19:56 | CP.PCM.PN ---
Subjective - Date & Time of Evaluation Date of Evaluation: 12/29/17 Time of Evaluation: 19:50 - Subjective Subjective: CHIEF COMPLAINTS TODAY : patient transferred to the floor AFEBRILE. RESTING, AWAKE lethargic. GI F/U NOTED - NO COLONOSCOPY SON Wants hospice NONVERBAL DUE TO ADVANCED DEMENTIA. ROS. on observation only. HEENT : N. Resp : NO SOB,NO wheezing ,pleuritic CP ,or hemoptysis Cardio : No anginal CP, PND, orthopnea, palpitation GI : No abd.pain, n/v ,diarrhea or GI bleeding . 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 Musculoskel : No joint swelling , Derm : No rash Psych : Normal affect. Ext : No swelling ,calf pain PE. Pt. is awake ,PRESENTLY NOT IN ACUTE DISTRESS V.S As noted in the chart Head ,ear nose,throat and eyes : Normal. Neck : Supple with normal carotids. Lungs: DIMINISHED BREATH SOUNDS AT THE BASES Heart : S1 & S2 IRREGULAR.. Abd : Soft non tender with normal bowel sounds. Neuro : Moves all ext. with no localized deficit. Ext : +ve b/l EDEMA 2+ with intact pulses.Non tender calves Derm : No rashes or decubitus ulcer. LABS/RADIOLOGY: REVIEWED CXR 12/26/17 -stable lower lobe infiltrates with bilateral pleural effusion left larger than right WBC 14.0 IMPROVING rENAL FUNCTIONS STABLE STOOL FOR c. DIFFICILE NEGATIVE 12/26/17 URINE CULTURES 12/25/17 REPEAT +VE YEAST URINE CULTURE +VE YEAST 12/19/17 BLOOD CULTURE 12/22/17 -VE 3 DAYS VIA CC Objective - Vital Signs/Intake and Output Vital Signs (last 24 hours): Temp Pulse Resp BP Pulse Ox 97.7 F 98 H 24 112/73 95 12/29/17 15:58 12/29/17 19:17 12/29/17 15:58 12/29/17 15:58 12/29/17 15:58 Intake and Output: 12/29/17 12/30/17 18:59 06:59 Intake Total 350 Output Total 500 Balance -150 - Medications Medications: Current Medications Albuterol/Ipratropium (Duoneb 3 Mg/0.5 Mg (3 Ml) Ud) 3 ml INH RQ6 [facility] Last Admin: 12/29/17 19:17 Dose: 3 ml Cholestyramine Resin (Questran) 4 gm PO QID [facility] Last Admin: 12/29/17 18:40 Dose: 4 gm Diltiazem HCl (Cardizem) 30 mg NG Q6H [facility] Last Admin: 12/29/17 18:19 Dose: 30 mg Cefepime HCl (Maxipime Iv 1 Gm Premix) 1 gm in 50 mls @ 100 mls/hr IVPB Q24H [facility] PRN Reason: Protocol Last Admin: 12/29/17 18:37 Dose: 100 mls/hr Metronidazole (Flagyl) 500 mg in 100 mls @ 100 mls/hr IVPB Q8 [facility] PRN Reason: Protocol Last Admin: 12/29/17 15:00 Dose: 100 mls/hr Fluconazole (Diflucan Iv 100 Mg/50 Ml Ns) 50 mls @ 50 mls/hr IVPB DAILY [facility] PRN Reason: Protocol Last Admin: 12/29/17 09:53 Dose: 50 mls/hr Levothyroxine Sodium (Synthroid) 100 mcg PO 0630 [facility] Last Admin: 12/29/17 05:29 Dose: 100 mcg Lorazepam (Ativan) 0.5 mg PO Q8 [facility] Last Admin: 12/29/17 15:00 Dose: 0.5 mg Magnesium Chloride (Slow-Mag) 64 mg PO DAILY [facility] Last Admin: 12/29/17 09:52 Dose: 64 mg Methylprednisolone (Solu-Medrol) 40 mg IV DAILY [facility] Last Admin: 12/29/17 09:52 Dose: 40 mg Pantoprazole Sodium (Protonix Inj) 40 mg IVP BID [facility] Last Admin: 12/29/17 18:20 Dose: 40 mg Rifampin (Rifampin Cap) 300 mg PO BID [facility] PRN Reason: Protocol Last Admin: 12/29/17 18:19 Dose: 300 mg Rosuvastatin Calcium (Crestor) 10 mg PO HS [facility] Last Admin: 12/28/17 22:03 Dose: 10 mg Saccharomyces Boulardii (Florastor) 250 mg PO BID [facility] Last Admin: 12/29/17 18:19 Dose: 250 mg Fluticasone/Salmeterol (Advair Diskus 250/50) 1 puff INH RQ12 [facility] Last Admin: 12/29/17 19:17 Dose: Not Given Vancomycin HCl (Vancocin (Oral Or Rectal Use)) 250 mg PO QID [facility] PRN Reason: Protocol Last Admin: 12/29/17 18:19 Dose: 250 mg Vitamin A (Vitamin A & D Oint Ud Foilpak) 1 ea EXT Q8 PRN PRN Reason: Dry SKIN Last Admin: 12/23/17 17:24 Dose: 1 ea - Labs Labs: 12/28/17 06:11 12/28/17 06:11 PT 14.5 SECONDS (9.7-12.2) H 12/28/17 06:11 INR 1.3 12/28/17 06:11 APTT 29 SECONDS (21-34) 12/28/17 06:11 Assessment and Plan (1) Pneumonia Assessment & Plan: ON IV mAXIPEME 1 G EVERY 24 HOURLY 12/22/17. cONTINUE iv fLAGYL 500 EVERY 8 HOURLY. F/U SPUTUM CULTURE/AND GRAM STAIN. PULMONARY TOILET. PT DNR/DNI NOTED. Status: Acute (2) C. difficile colitis Assessment & Plan: REPEAT STOOL c. DIFFICILE NEGATIVE. 12/26/17, 12/25 COLONOSCOPY CANCELED TODAY PER GI CONTINUE BY MOUTH VANCOMYCIN 250 MG 4 TIMES A DAY pts family considering HOSPICE CARE. Status: Acute (3) Dehydration Status: Acute (4) Hypernatremia Status: Resolved (5) Atrial fibrillation with rapid ventricular response Status: Acute (6) Breast mass, left Status: Acute (7) Candiduria Assessment & Plan: PT STARTED ON IV DIFLUCAN 100MG IVPB Q 24HRLY X 5DAYS 12/29/17. Status: Acute (8) GIB (gastrointestinal bleeding) Status: Acute
--- NOTE | 2017-12-29 23:53 | CP.PCM.PN ---
Subjective - Date & Time of Evaluation Date of Evaluation: 12/29/17 Time of Evaluation: 17:35 - Subjective Subjective: Pt seen and examined at bedside Objective - Vital Signs/Intake and Output Vital Signs (last 24 hours): Temp Pulse Resp BP Pulse Ox 98.1 F 76 20 112/73 96 12/29/17 23:11 12/29/17 23:11 12/29/17 23:11 12/29/17 15:58 12/29/17 23:11 Intake and Output: 12/29/17 12/30/17 18:59 06:59 Intake Total 350 Output Total 500 400 Balance -150 -400 - Medications Medications: Current Medications Albuterol/Ipratropium (Duoneb 3 Mg/0.5 Mg (3 Ml) Ud) 3 ml INH RQ6 [facility] Last Admin: 12/29/17 19:17 Dose: 3 ml Cholestyramine Resin (Questran) 4 gm PO QID [facility] Last Admin: 12/29/17 21:27 Dose: 4 gm Diltiazem HCl (Cardizem) 30 mg NG Q6H [facility] Last Admin: 12/29/17 18:19 Dose: 30 mg Cefepime HCl (Maxipime Iv 1 Gm Premix) 1 gm in 50 mls @ 100 mls/hr IVPB Q24H [facility] PRN Reason: Protocol Last Admin: 12/29/17 18:37 Dose: 100 mls/hr Metronidazole (Flagyl) 500 mg in 100 mls @ 100 mls/hr IVPB Q8 [facility] PRN Reason: Protocol Last Admin: 12/29/17 21:27 Dose: 100 mls/hr Fluconazole (Diflucan Iv 100 Mg/50 Ml Ns) 50 mls @ 50 mls/hr IVPB DAILY [facility] PRN Reason: Protocol Last Admin: 12/29/17 09:53 Dose: 50 mls/hr Levothyroxine Sodium (Synthroid) 100 mcg PO 0630 [facility] Last Admin: 12/29/17 05:29 Dose: 100 mcg Lorazepam (Ativan) 0.5 mg PO Q8 [facility] Last Admin: 12/29/17 21:26 Dose: 0.5 mg Magnesium Chloride (Slow-Mag) 64 mg PO DAILY [facility] Last Admin: 12/29/17 09:52 Dose: 64 mg Methylprednisolone (Solu-Medrol) 40 mg IV DAILY [facility] Last Admin: 12/29/17 09:52 Dose: 40 mg Pantoprazole Sodium (Protonix Inj) 40 mg IVP BID [facility] Last Admin: 12/29/17 18:20 Dose: 40 mg Rosuvastatin Calcium (Crestor) 10 mg PO HS [facility] Last Admin: 12/29/17 21:26 Dose: 10 mg Saccharomyces Boulardii (Florastor) 250 mg PO BID [facility] Last Admin: 12/29/17 18:19 Dose: 250 mg Fluticasone/Salmeterol (Advair Diskus 250/50) 1 puff INH RQ12 [facility] Last Admin: 12/29/17 19:17 Dose: Not Given Vancomycin HCl (Vancocin (Oral Or Rectal Use)) 250 mg PO QID [facility] PRN Reason: Protocol Last Admin: 12/29/17 21:27 Dose: 250 mg Vitamin A (Vitamin A & D Oint Ud Foilpak) 1 ea EXT Q8 PRN PRN Reason: Dry SKIN Last Admin: 12/23/17 17:24 Dose: 1 ea - Labs Labs: 12/28/17 06:11 12/28/17 06:11 PT 14.5 SECONDS (9.7-12.2) H 12/28/17 06:11 INR 1.3 12/28/17 06:11 APTT 29 SECONDS (21-34) 12/28/17 06:11 Assessment and Plan (1) C. difficile colitis Status: Acute (2) Dehydration Status: Acute (3) Septicemia Status: Acute (4) Anxiety Status: Acute (5) COPD (chronic obstructive pulmonary disease) Status: Acute (6) Depressed Status: Acute (7) Diarrhea Status: Acute (8) HTN (hypertension) Status: Acute
[2017-12-30] MEDS: Albuterol-Ipratrop 3 mg / 0.5 (3 ml) UD INH SCH ×4 (01:56→20:07)
[2017-12-30] MEDS: metroNIDAZOLE IV 500 mg/100 ml 500 MG/100 ML BAG IVPB SCH ×3 (05:50→21:39)
[2017-12-30] MEDS: Levothyroxine 100 MCG TAB PO SCH (05:51)
[2017-12-30] MEDS: Fluticasone-Salmeterol 250-50mcg Diskus INH SCH ×2 (07:19→20:06)
[2017-12-30] MEDS: MethylPREDNISolone 40 mg Vial IV SCH (11:11)
[2017-12-30] MEDS: Fluconazole IV 100mg/50 ml NS 50 ML IVPB SCH (11:19)
--- NOTE | 2017-12-30 11:19 | PN ---
DATE: 12/30/2017 LOCATION: 371, bed A. HISTORY OF PRESENT ILLNESS: This is an 82-year-old female in a status of DNR and DNI, seen and examined early in rounds without significant clinical changes or reported chest pain, palpitation, significant shortness of breath, or active bleeding. The patient is still on BiPAP and appears to be somewhat (00:59) cachectic and confused, out of the intensive care unit, still have a rectal tube in place. The entire chart is reviewed including, but not limited to the most recent lab and radiology study results, current and the previous medication list, current and the previous medical events. Case discussed with the staff at length. Today's labs still pending, but the latest lab results showed low hemoglobin and hematocrit with leukocytosis with mildly increased PT, low sodium and low calcium with a very low total protein and albumin. PHYSICAL EXAMINATION: GENERAL: An 82-year-old female. VITAL SIGNS: Afebrile with pulse of 78, respiratory rate 20 to 22, and blood pressure of 106/70. HEENT: Showed pale, dry oral mucous membrane. Nonicteric sclerae. LUNGS: Few scattered crepitation. Decreased air entry at bases. HEART: Positive S1 and S2. ABDOMEN: Soft with mild generalized tenderness. No mass or organomegaly. EXTREMITIES: Lower extremities with mild edematous changes. No clubbing or cyanosis. Peripheral pulses are weak bilaterally. NEUROLOGIC: No reported new neurological deficits, sensory or motor. IMPRESSION: 1. Pseudomembranous colitis, improving clinically and gradually. 2. Gastrointestinal bleeding, most likely lower. 3. Peptic ulcer disease by recent upper endoscopy. 4. Anemia secondary to above. 5. Re-exacerbation of chronic obstructive pulmonary disease. 6. Malnutrition with hypoalbuminemia and hypoproteinemia. 7. Electrolyte imbalance secondary to above with hyponatremia and hypocalcemia. 8. Known history of hypertension with recently diagnosed duodenal ulcer and history of severe anxiety syndrome. SUGGESTION: 1. Continue current management. 2. Peripheral hyperalimentation. 3. The patient for hospice as per her son's request as reported. We will follow up with you as needed. Sarah Sanders MD
[2017-12-30] MEDS: Saccharomyces Boulardi 250 mg Cap NG SCH ×2 (11:20→17:29)
[2017-12-30] MEDS: Cholestyramine 4 gm/Pkt UD PO SCH ×4 (11:20→21:38)
[2017-12-30] MEDS: Vancomycin 125 MG/5 ML SOLN (ORAL/RECTAL) NG SCH ×4 (11:21→21:38)
[2017-12-30] MEDS: Magnesium Chloride 64 mg ER Tab PO SCH (12:16)
--- NOTE | 2017-12-30 12:24 | CP.PCM.PN ---
Subjective - Date & Time of Evaluation Date of Evaluation: 12/30/17 Time of Evaluation: 10:00 - Subjective Subjective: patient seen and examined Patient remains on BiPAP Awake//confused Afebrile rectal tube/diarrhea Objective - Vital Signs/Intake and Output Vital Signs (last 24 hours): Temp Pulse Resp BP Pulse Ox 98 F 58 L 20 109/63 97 12/30/17 08:19 12/30/17 08:19 12/30/17 08:19 12/30/17 08:19 12/30/17 08:19 Intake and Output: 12/30/17 12/30/17 06:59 18:59 Intake Total 1000 Output Total 1000 Balance 0 - Medications Medications: Current Medications Albuterol/Ipratropium (Duoneb 3 Mg/0.5 Mg (3 Ml) Ud) 3 ml INH RQ6 [facility] Last Admin: 12/30/17 07:19 Dose: 3 ml Cholestyramine Resin (Questran) 4 gm PO QID [facility] Last Admin: 12/30/17 11:20 Dose: 4 gm Diltiazem HCl (Cardizem) 30 mg NG Q6H [facility] Last Admin: 12/30/17 11:20 Dose: 30 mg Cefepime HCl (Maxipime Iv 1 Gm Premix) 1 gm in 50 mls @ 100 mls/hr IVPB Q24H [facility] PRN Reason: Protocol Last Admin: 12/29/17 18:37 Dose: 100 mls/hr Metronidazole (Flagyl) 500 mg in 100 mls @ 100 mls/hr IVPB Q8 [facility] PRN Reason: Protocol Last Admin: 12/30/17 05:50 Dose: 100 mls/hr Fluconazole (Diflucan Iv 100 Mg/50 Ml Ns) 50 mls @ 50 mls/hr IVPB DAILY [facility] PRN Reason: Protocol Last Admin: 12/30/17 11:19 Dose: 50 mls/hr Levothyroxine Sodium (Synthroid) 100 mcg NG 0630 [facility] Lorazepam (Ativan) 0.5 mg NG Q8 [facility] Magnesium Chloride (Slow-Mag) 64 mg PO DAILY [facility] Last Admin: 12/30/17 12:16 Dose: Not Given Methylprednisolone (Solu-Medrol) 40 mg IV DAILY [facility] Last Admin: 12/30/17 11:11 Dose: 40 mg Pantoprazole Sodium (Protonix Inj) 40 mg IVP BID [facility] Last Admin: 12/30/17 11:19 Dose: 40 mg Rosuvastatin Calcium (Crestor) 10 mg NG HS [facility] Saccharomyces Boulardii (Florastor) 250 mg NG BID [facility] Last Admin: 12/30/17 11:20 Dose: 250 mg Fluticasone/Salmeterol (Advair Diskus 250/50) 1 puff INH RQ12 [facility] Last Admin: 12/30/17 07:19 Dose: Not Given Vancomycin HCl (Vancocin (Oral Or Rectal Use)) 250 mg NG QID [facility] PRN Reason: Protocol Last Admin: 12/30/17 11:21 Dose: 250 mg Vitamin A (Vitamin A & D Oint Ud Foilpak) 1 ea EXT Q8 PRN PRN Reason: Dry SKIN Last Admin: 12/23/17 17:24 Dose: 1 ea - Labs Labs: 12/28/17 06:11 12/28/17 06:11 PT 14.5 SECONDS (9.7-12.2) H 12/28/17 06:11 INR 1.3 12/28/17 06:11 APTT 29 SECONDS (21-34) 12/28/17 06:11 - Head Exam Head Exam: ATRAUMATIC, NORMOCEPHALIC - ENT Exam ENT Exam: Mucous Membranes Moist - GI/Abdominal Exam GI & Abdominal Exam: Soft - Extremities Exam Extremities Exam: Normal Inspection - Neurological Exam Neurological Exam: Awake Assessment and Plan (1) C. difficile colitis Assessment & Plan: continue antibiotics Continue treatment for yeast in the urine BiPAP Nebulizer treatment DNR/DNI Status: Acute (2) COPD exacerbation Status: Acute (3) Dehydration Status: Acute
[2017-12-30] MEDS: Cefepime IV 1 gm in Dextrose 1 GM/50 ML BAG IVPB SCH (17:28)
--- NOTE | 2017-12-30 23:14 | PN ---
DATE: 12/30/2017 SUBJECTIVE: The patient is not on any respiratory distress at this time. PHYSICAL EXAMINATION: VITAL SIGNS: Blood pressure 121/76, heart rate 81, temperature 98.6, respirations 20. HEENT: Pale conjunctivae. CHEST: Diminished breath sounds over the bases. HEART: S1 and S2 regular. EXTREMITIES: Trace leg edema. ASSESSMENT: 1. Atrial tachycardia. 2. Chronic obstructive lung disease. 3. Hyponatremia. 4. Hypocalcemia. 5. Improved hypomagnesemia. 6. Hypothyroidism. 7. Clostridium difficile colitis. 8. Enterococcus faecalis as well as fungal urinary tract infection. RECOMMENDATIONS: Discontinue Slow-Mag. Continue Cardizem 30 mg every 6 hours via nasogastric tube, Crestor at 10 mg once a day, IV Flagyl 500 mg every 8 hours, Diflucan 100 mg intravenously daily, IV cefepime at 1 gm intravenously daily, Synthroid 100 mcg daily, vancomycin 250 mg q.i.d. via nasogastric tube. Tru Vinson MD
--- NOTE | 2017-12-30 23:33 | CP.PCM.PN ---
Subjective - Date & Time of Evaluation Date of Evaluation: 12/30/17 Time of Evaluation: 23:33 - Subjective Subjective: CHIEF COMPLAINTS TODAY : AFEBRILE. RESTING, AWAKE lethargic. RECTAL TUBE DIARRHOEA NONVERBAL DUE TO ADVANCED DEMENTIA. ROS. on observation only. HEENT : N. Resp : NO SOB,NO wheezing ,pleuritic CP ,or hemoptysis Cardio : No anginal CP, PND, orthopnea, palpitation GI : No abd.pain, n/v ,diarrhea or GI bleeding . 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 Musculoskel : No joint swelling , Derm : No rash Psych : Normal affect. Ext : No swelling ,calf pain PE. Pt. is awake ,PRESENTLY NOT IN ACUTE DISTRESS V.S As noted in the chart Head ,ear nose,throat and eyes : Normal. Neck : Supple with normal carotids. Lungs: DIMINISHED BREATH SOUNDS AT THE BASES Heart : S1 & S2 IRREGULAR.. Abd : Soft non tender with normal bowel sounds. Neuro : Moves all ext. with no localized deficit. Ext : +ve b/l EDEMA 2+ with intact pulses.Non tender calves Derm : No rashes or decubitus ulcer. LABS/RADIOLOGY: REVIEWED STOOL FOR C. DIFFICILE NEGATIVE 12/26/17 URINE CULTURES 12/25/17 REPEAT +VE YEAST URINE CULTURE +VE YEAST 12/19/17 BLOOD CULTURE 12/22/17 -VE 3 DAYS VIA CC Objective - Vital Signs/Intake and Output Vital Signs (last 24 hours): Temp Pulse Resp BP Pulse Ox 98.6 F 77 20 121/76 100 12/30/17 16:00 12/30/17 20:10 12/30/17 16:00 12/30/17 16:00 12/30/17 16:00 Intake and Output: 12/30/17 12/31/17 18:59 06:59 Intake Total 650 850 Output Total 250 100 Balance 400 750 - Medications Medications: Current Medications Albuterol/Ipratropium (Duoneb 3 Mg/0.5 Mg (3 Ml) Ud) 3 ml INH RQ6 [facility] Last Admin: 12/30/17 20:07 Dose: 3 ml Cholestyramine Resin (Questran) 4 gm PO QID [facility] Last Admin: 12/30/17 21:38 Dose: 4 gm Diltiazem HCl (Cardizem) 30 mg NG Q6H [facility] Last Admin: 12/30/17 17:29 Dose: 30 mg Cefepime HCl (Maxipime Iv 1 Gm Premix) 1 gm in 50 mls @ 100 mls/hr IVPB Q24H [facility] PRN Reason: Protocol Last Admin: 12/30/17 17:28 Dose: 100 mls/hr Metronidazole (Flagyl) 500 mg in 100 mls @ 100 mls/hr IVPB Q8 [facility] PRN Reason: Protocol Last Admin: 12/30/17 21:39 Dose: 100 mls/hr Fluconazole (Diflucan Iv 100 Mg/50 Ml Ns) 50 mls @ 50 mls/hr IVPB DAILY [facility] PRN Reason: Protocol Last Admin: 12/30/17 11:19 Dose: 50 mls/hr Levothyroxine Sodium (Synthroid) 100 mcg NG 0630 [facility] Lorazepam (Ativan) 0.5 mg NG Q8 [facility] Last Admin: 12/30/17 21:38 Dose: 0.5 mg Methylprednisolone (Solu-Medrol) 40 mg IV DAILY [facility] Last Admin: 12/30/17 11:11 Dose: 40 mg Pantoprazole Sodium (Protonix Inj) 40 mg IVP BID [facility] Last Admin: 12/30/17 17:28 Dose: 40 mg Rosuvastatin Calcium (Crestor) 10 mg NG HS [facility] Last Admin: 12/30/17 21:38 Dose: 10 mg Saccharomyces Boulardii (Florastor) 250 mg NG BID [facility] Last Admin: 12/30/17 17:29 Dose: 250 mg Fluticasone/Salmeterol (Advair Diskus 250/50) 1 puff INH RQ12 [facility] Last Admin: 12/30/17 20:06 Dose: Not Given Vancomycin HCl (Vancocin (Oral Or Rectal Use)) 250 mg NG QID [facility] PRN Reason: Protocol Last Admin: 12/30/17 21:38 Dose: 250 mg Vitamin A (Vitamin A & D Oint Ud Foilpak) 1 ea EXT Q8 PRN PRN Reason: Dry SKIN Last Admin: 12/23/17 17:24 Dose: 1 ea - Labs Labs: 12/28/17 06:11 12/28/17 06:11 PT 14.5 SECONDS (9.7-12.2) H 12/28/17 06:11 INR 1.3 12/28/17 06:11 APTT 29 SECONDS (21-34) 12/28/17 06:11 Assessment and Plan (1) Pneumonia Assessment & Plan: ON IV mAXIPEME 1 G EVERY 24 HOURLY 12/22/17. cONTINUE iv fLAGYL 500 EVERY 8 HOURLY. F/U SPUTUM CULTURE/AND GRAM STAIN. PULMONARY TOILET. PT DNR/DNI NOTED. Status: Acute (2) C. difficile colitis Assessment & Plan: REPEAT STOOL c. DIFFICILE NEGATIVE. 12/26/17, 12/25 CONTINUE BY MOUTH VANCOMYCIN 250 MG 4 TIMES A DAY pts family considering HOSPICE CARE. Status: Acute (3) Dehydration Status: Acute (4) Hypernatremia Status: Resolved (5) Atrial fibrillation with rapid ventricular response Status: Acute (6) Breast mass, left Status: Acute (7) Candiduria Assessment & Plan: REPEAT URINE CULTURE +VE YEAST.12/26/17. PT ON IV DIFLUCAN 100MG IV OD DAILY. X 5DAYS ( STARTED 12/29/17 ) Status: Acute (8) GIB (gastrointestinal bleeding) Status: Acute
[2017-12-31] MEDS: Albuterol-Ipratrop 3 mg / 0.5 (3 ml) UD INH SCH ×4 (01:33→20:43)
--- NOTE | 2017-12-31 02:03 | CP.PCM.PN ---
Subjective - Date & Time of Evaluation Date of Evaluation: 12/30/17 Time of Evaluation: 18:00 - Subjective Subjective: Pt seen and examined at bedside Objective - Vital Signs/Intake and Output Vital Signs (last 24 hours): Temp Pulse Resp BP Pulse Ox 98.6 F 80 20 121/76 100 12/30/17 16:00 12/30/17 23:56 12/30/17 16:00 12/30/17 16:00 12/30/17 16:00 Intake and Output: 12/30/17 12/31/17 18:59 06:59 Intake Total 650 850 Output Total 250 100 Balance 400 750 - Medications Medications: Current Medications Albuterol/Ipratropium (Duoneb 3 Mg/0.5 Mg (3 Ml) Ud) 3 ml INH RQ6 [facility] Last Admin: 12/31/17 01:33 Dose: 3 ml Cholestyramine Resin (Questran) 4 gm PO QID [facility] Last Admin: 12/30/17 21:38 Dose: 4 gm Diltiazem HCl (Cardizem) 30 mg NG Q6H [facility] Last Admin: 12/31/17 00:43 Dose: 30 mg Cefepime HCl (Maxipime Iv 1 Gm Premix) 1 gm in 50 mls @ 100 mls/hr IVPB Q24H [facility] PRN Reason: Protocol Last Admin: 12/30/17 17:28 Dose: 100 mls/hr Metronidazole (Flagyl) 500 mg in 100 mls @ 100 mls/hr IVPB Q8 [facility] PRN Reason: Protocol Last Admin: 12/30/17 21:39 Dose: 100 mls/hr Fluconazole (Diflucan Iv 100 Mg/50 Ml Ns) 50 mls @ 50 mls/hr IVPB DAILY [facility] PRN Reason: Protocol Last Admin: 12/30/17 11:19 Dose: 50 mls/hr Levothyroxine Sodium (Synthroid) 100 mcg NG 0630 [facility] Lorazepam (Ativan) 0.5 mg NG Q8 [facility] Last Admin: 12/30/17 21:38 Dose: 0.5 mg Methylprednisolone (Solu-Medrol) 40 mg IV DAILY [facility] Last Admin: 12/30/17 11:11 Dose: 40 mg Pantoprazole Sodium (Protonix Inj) 40 mg IVP BID [facility] Last Admin: 12/30/17 17:28 Dose: 40 mg Rosuvastatin Calcium (Crestor) 10 mg NG HS [facility] Last Admin: 12/30/17 21:38 Dose: 10 mg Saccharomyces Boulardii (Florastor) 250 mg NG BID [facility] Last Admin: 12/30/17 17:29 Dose: 250 mg Fluticasone/Salmeterol (Advair Diskus 250/50) 1 puff INH RQ12 [facility] Last Admin: 12/30/17 20:06 Dose: Not Given Vancomycin HCl (Vancocin (Oral Or Rectal Use)) 250 mg NG QID [facility] PRN Reason: Protocol Last Admin: 12/30/17 21:38 Dose: 250 mg Vitamin A (Vitamin A & D Oint Ud Foilpak) 1 ea EXT Q8 PRN PRN Reason: Dry SKIN Last Admin: 12/23/17 17:24 Dose: 1 ea - Labs Labs: 12/28/17 06:11 12/28/17 06:11 PT 14.5 SECONDS (9.7-12.2) H 12/28/17 06:11 INR 1.3 12/28/17 06:11 APTT 29 SECONDS (21-34) 12/28/17 06:11 Assessment and Plan (1) C. difficile colitis Status: Acute (2) Dehydration Status: Acute (3) Septicemia Status: Acute (4) Anxiety Status: Acute (5) COPD (chronic obstructive pulmonary disease) Status: Acute (6) Depressed Status: Acute (7) Diarrhea Status: Acute (8) HTN (hypertension) Status: Acute
--- NOTE | 2017-12-31 02:04 | CP.PCM.PN ---
Subjective - Date & Time of Evaluation Date of Evaluation: 12/30/17 Time of Evaluation: 18:00 - Subjective Subjective: Pt seen and examined at bedside, is very anxious, on BIPAP, pt family decided not to ut pt on hospice, Her H and H is stable, s/p blood transfusion, Pt has some bleeding per rectum, pt is very anxious, restless, afebrile, no shortness f breath, no cough Objective - Vital Signs/Intake and Output Vital Signs (last 24 hours): Temp Pulse Resp BP Pulse Ox 98.6 F 80 20 121/76 100 12/30/17 16:00 12/30/17 23:56 12/30/17 16:00 12/30/17 16:00 12/30/17 16:00 Intake and Output: 12/30/17 12/31/17 18:59 06:59 Intake Total 650 850 Output Total 250 100 Balance 400 750 - Medications Medications: Current Medications Albuterol/Ipratropium (Duoneb 3 Mg/0.5 Mg (3 Ml) Ud) 3 ml INH RQ6 [facility] Last Admin: 12/31/17 01:33 Dose: 3 ml Cholestyramine Resin (Questran) 4 gm PO QID [facility] Last Admin: 12/30/17 21:38 Dose: 4 gm Diltiazem HCl (Cardizem) 30 mg NG Q6H [facility] Last Admin: 12/31/17 00:43 Dose: 30 mg Cefepime HCl (Maxipime Iv 1 Gm Premix) 1 gm in 50 mls @ 100 mls/hr IVPB Q24H [facility] PRN Reason: Protocol Last Admin: 12/30/17 17:28 Dose: 100 mls/hr Metronidazole (Flagyl) 500 mg in 100 mls @ 100 mls/hr IVPB Q8 [facility] PRN Reason: Protocol Last Admin: 12/30/17 21:39 Dose: 100 mls/hr Fluconazole (Diflucan Iv 100 Mg/50 Ml Ns) 50 mls @ 50 mls/hr IVPB DAILY [facility] PRN Reason: Protocol Last Admin: 12/30/17 11:19 Dose: 50 mls/hr Levothyroxine Sodium (Synthroid) 100 mcg NG 0630 [facility] Lorazepam (Ativan) 0.5 mg NG Q8 [facility] Last Admin: 12/30/17 21:38 Dose: 0.5 mg Methylprednisolone (Solu-Medrol) 40 mg IV DAILY [facility] Last Admin: 12/30/17 11:11 Dose: 40 mg Pantoprazole Sodium (Protonix Inj) 40 mg IVP BID [facility] Last Admin: 12/30/17 17:28 Dose: 40 mg Rosuvastatin Calcium (Crestor) 10 mg NG HS [facility] Last Admin: 12/30/17 21:38 Dose: 10 mg Saccharomyces Boulardii (Florastor) 250 mg NG BID [facility] Last Admin: 12/30/17 17:29 Dose: 250 mg Fluticasone/Salmeterol (Advair Diskus 250/50) 1 puff INH RQ12 [facility] Last Admin: 12/30/17 20:06 Dose: Not Given Vancomycin HCl (Vancocin (Oral Or Rectal Use)) 250 mg NG QID [facility] PRN Reason: Protocol Last Admin: 12/30/17 21:38 Dose: 250 mg Vitamin A (Vitamin A & D Oint Ud Foilpak) 1 ea EXT Q8 PRN PRN Reason: Dry SKIN Last Admin: 12/23/17 17:24 Dose: 1 ea - Labs Labs: 12/28/17 06:11 12/28/17 06:11 PT 14.5 SECONDS (9.7-12.2) H 12/28/17 06:11 INR 1.3 12/28/17 06:11 APTT 29 SECONDS (21-34) 12/28/17 06:11 - Constitutional Appears: No Acute Distress - Head Exam Head Exam: ATRAUMATIC, NORMAL INSPECTION, NORMOCEPHALIC - Eye Exam Eye Exam: EOMI, Normal appearance, PERRL Pupil Exam: NORMAL ACCOMODATION, PERRL - Respiratory Exam Respiratory Exam: Decreased Breath Sounds, Rhonchi - Cardiovascular Exam Cardiovascular Exam: REGULAR RHYTHM, +S1, +S2. absent: Murmur - GI/Abdominal Exam GI & Abdominal Exam: Soft, Normal Bowel Sounds. absent: Tenderness Assessment and Plan (1) C. difficile colitis Status: Acute (2) Dehydration Status: Acute (3) Septicemia Status: Acute (4) Anxiety Status: Acute (5) COPD (chronic obstructive pulmonary disease) Status: Acute (6) Depressed Status: Acute (7) Diarrhea Status: Acute (8) HTN (hypertension) Status: Acute
[2017-12-31] MEDS: metroNIDAZOLE IV 500 mg/100 ml 500 MG/100 ML BAG IVPB SCH ×3 (05:13→21:41)
[2017-12-31] MEDS: Levothyroxine 100 MCG TAB NG SCH (05:32)
[2017-12-31 06:52] LABS: MEAN CELL VOLUME 86.6 fL (81.0-99.0); MEAN CORPUSCULAR HEMOGLOBIN 29.7 pg (27.0-31.0); MEAN CORPUSCULAR HGB CONC 34.3 g/dL (33.0-37.0); RBC 2.69 Mil/uL (3.80-5.20); RED CELL DISTRIBUTION WIDTH 16.5 % (11.5-14.5); WHITE BLOOD COUNT 8.3 K/uL (4.8-10.8)
[2017-12-31 07:06] LABS: BLOOD UREA NITROGEN 6 mg/dL (7-17); CALCIUM 6.9 mg/dl (8.6-10.4); GFR AFRICAN-AMERICAN > 60; GFR NON-AFRICAN AMERICAN > 60
[2017-12-31] MEDS: Fluticasone-Salmeterol 250-50mcg Diskus INH SCH ×3 (07:53→20:45)
[2017-12-31] MEDS: Vancomycin 125 MG/5 ML SOLN (ORAL/RECTAL) NG SCH ×4 (11:15→21:40)
[2017-12-31] MEDS: MethylPREDNISolone 40 mg Vial IV SCH (11:16)
[2017-12-31] MEDS: Cholestyramine 4 gm/Pkt UD PO SCH ×4 (11:16→21:39)
[2017-12-31] MEDS: Fluconazole IV 100mg/50 ml NS 50 ML IVPB SCH (11:17)
[2017-12-31] MEDS: Saccharomyces Boulardi 250 mg Cap NG SCH ×2 (11:18→17:10)
[2017-12-31] MEDS: Magnesium Sulfate 1 gm in D5W 1 GM/100 ML BAG IVPB SCH ×2 (16:31→16:48)
[2017-12-31] MEDS: Cefepime IV 1 gm in Dextrose 1 GM/50 ML BAG IVPB SCH (17:37)
--- NOTE | 2017-12-31 20:19 | PN ---
DATE: 12/31/2017 LOCATION: 371, bed 8. SUBJECTIVE: This is an 82-year-old female seen in rounds as per the request of the admitting MD, as the patient had more than one episodes of rectal bleeding. Still on BiPAP. The patient is in a state of DNR and DNI. The entire chart is reviewed including, but not limited to, most recent lab and radiology study results, current and previous medication list, current and previous medical events. The patient is still NG tube feeding. Today's lab showed hemoglobin of 8.2, hematocrit 23.3 with normal platelet count. Sodium 129, potassium 2.7 with low BUN and creatinine as well as low calcium and low magnesium with reported low total protein and albumin recently. C. difficile antigen and toxin reported to be negative. PHYSICAL EXAMINATION: GENERAL: An 82-year-old female, poorly responds or communicates to verbal stimuli. VITAL SIGNS: Afebrile with pulse of 70, respiratory rate 20 to 22, blood pressure of 110/72. HEENT: Showed pale, dry oral mucous membrane. Nonicteric sclerae. LUNGS: Few scattered crepitation. Decreased air entry at bases. The patient on Ventimask round the clock. HEART: Positive S1 and S2. ABDOMEN: Soft with mild generalized tenderness. No mass or organomegaly. Bowel sounds are hypoactive. RECTAL: Guaiac positive stool. EXTREMITIES: With evidence of muscle wasting syndrome. No clubbing or cyanosis, but with slight lower extremity edematous changes. NEUROLOGIC: No new reported neurological deficits, sensory or motor. IMPRESSION: 1. Gastrointestinal bleeding, mostly likely lower. 2. Rule out occult gastrointestinal malignancy. 3. Recent history of pseudomembranous colitis. 4. Peptic ulcer disease. 5. Anemia secondary to above. 6. Electrolyte imbalance. 7. Malnutrition with hypoalbuminemia and hypoproteinemia. 8. Chronic obstructive pulmonary disease by history. 9. Known history, but not limited to, hypertension, severe anxiety syndrome. SUGGESTION: 1. Continue current management. 2. Blood transfusion to keep hemoglobin around 10 gm%. 3. Correct any underlying . 4. Due to the patient's clinical presentation, no aggressive GI workup in the meantime. The patient is unstable clinically for any colonoscopy. Further recommendation to follow. Sarah Sanders MD [facility] # [id number]
--- NOTE | 2017-12-31 21:45 | PN ---
DATE: 12/31/2017 SUBJECTIVE: The patient is awake and oriented to place and to her son at the bedside. She denies any chest pain or abdominal pain. She is comfortable on nasal O2. PHYSICAL EXAMINATION: VITAL SIGNS: Blood pressure 112/64, heart rate 72, temperature 97.6, respirations 20. HEENT: Pale conjunctivae. CHEST: Minimal rhonchi. HEART: S1 and S2 regular. ABDOMEN: Soft. EXTREMITIES: 1+ pitting edema. LABORATORY DATA: SMA-7: Sodium 129, potassium 2.7, chloride 103, CO2 23, glucose 105, BUN 6, creatinine 0.6. Hemoglobin and hematocrit 8 and 23.3, white count and platelet count are within normal limit. Magnesium is 1.4. ASSESSMENT: 1. Atrial tachycardia. 2. Hypokalemia. 3. Hyponatremia. 4. Hypomagnesemia and hypocalcemia. 5. Clostridium difficile colitis. 6. Enterococcus faecalis urinary tract infection. 7. Chronic obstructive lung disease. RECOMMENDATIONS: To continue current Ativan p.r.n., Cardizem at 30 mg every 6 hours via nasogastric tube, IV Diflucan 100 mg daily, IV Flagyl 500 mg every 8 hours, IV cefepime at 1 gm every 24 hours, Solu-Medrol 40 mg intravenously daily, vancomycin 250 mg via nasogastric tube. We will start magnesium sulfate repletion also 20 mEq IV potassium chloride replacement. Tru Vinson MD
[2018-01-01] MEDS: Albuterol-Ipratrop 3 mg / 0.5 (3 ml) UD INH SCH ×4 (02:26→20:09)
[2018-01-01] MEDS: metroNIDAZOLE IV 500 mg/100 ml 500 MG/100 ML BAG IVPB SCH ×3 (05:11→21:27)
[2018-01-01] MEDS: Levothyroxine 100 MCG TAB NG SCH (05:32)
[2018-01-01 07:23] LABS: HEMOGLOBIN 7.8 g/dL (11.0-16.0); MEAN CELL VOLUME 86.9 fL (81.0-99.0); MEAN CORPUSCULAR HEMOGLOBIN 29.3 pg (27.0-31.0); MEAN CORPUSCULAR HGB CONC 33.7 g/dL (33.0-37.0); MEAN PLATELET VOLUME 8.1 fL (7.2-11.7); RBC 2.67 Mil/uL (3.80-5.20); RED CELL DISTRIBUTION WIDTH 16.3 % (11.5-14.5); WHITE BLOOD COUNT 11.3 K/uL (4.8-10.8)
[2018-01-01] MEDS: Fluticasone-Salmeterol 250-50mcg Diskus INH SCH ×2 (07:34→20:10)
[2018-01-01 07:46] LABS: BLOOD UREA NITROGEN 8 mg/dL (7-17); CALCIUM 6.8 mg/dl (8.6-10.4); GFR AFRICAN-AMERICAN > 60; GFR NON-AFRICAN AMERICAN > 60
--- NOTE | 2018-01-01 09:57 | CP.PCM.PN ---
Subjective - Date & Time of Evaluation Date of Evaluation: 01/01/18 Time of Evaluation: 18:00 - Subjective Subjective: Pt seen and examined at bedside, is very anxious, on BIPAP, pt family decided not to ut pt on hospice, Her H and H is stable, s/p blood transfusion, Pt has some bleeding per rectum, pt is very anxious, restless, afebrile, no shortness f breath, no cough Objective - Vital Signs/Intake and Output Vital Signs (last 24 hours): Temp Pulse Resp BP Pulse Ox 98.4 F 88 20 100/62 98 01/01/18 07:58 01/01/18 07:58 01/01/18 07:58 01/01/18 07:58 01/01/18 07:58 Intake and Output: 01/01/18 01/01/18 06:59 18:59 Intake Total 1050 830 Output Total 1100 950 Balance -50 -120 - Medications Medications: Current Medications Albuterol/Ipratropium (Duoneb 3 Mg/0.5 Mg (3 Ml) Ud) 3 ml INH RQ6 [facility] Last Admin: 01/01/18 07:33 Dose: 3 ml Cholestyramine Resin (Questran) 4 gm PO QID [facility] Last Admin: 12/31/17 21:39 Dose: 4 gm Diltiazem HCl (Cardizem) 30 mg NG Q6H [facility] Last Admin: 01/01/18 05:11 Dose: 30 mg Cefepime HCl (Maxipime Iv 1 Gm Premix) 1 gm in 50 mls @ 100 mls/hr IVPB Q24H [facility] PRN Reason: Protocol Last Admin: 12/31/17 17:37 Dose: 100 mls/hr Metronidazole (Flagyl) 500 mg in 100 mls @ 100 mls/hr IVPB Q8 [facility] PRN Reason: Protocol Last Admin: 01/01/18 05:11 Dose: 100 mls/hr Fluconazole (Diflucan Iv 100 Mg/50 Ml Ns) 50 mls @ 50 mls/hr IVPB DAILY [facility] PRN Reason: Protocol Last Admin: 12/31/17 11:17 Dose: 50 mls/hr Levothyroxine Sodium (Synthroid) 100 mcg NG 0630 [facility] Last Admin: 01/01/18 05:32 Dose: 100 mcg Lorazepam (Ativan) 0.5 mg NG Q8 [facility] Last Admin: 01/01/18 05:10 Dose: 0.5 mg Methylprednisolone (Solu-Medrol) 40 mg IV DAILY [facility] Last Admin: 12/31/17 11:16 Dose: 40 mg Pantoprazole Sodium (Protonix Inj) 40 mg IVP BID [facility] Last Admin: 12/31/17 17:09 Dose: 40 mg Rosuvastatin Calcium (Crestor) 10 mg NG HS [facility] Last Admin: 12/31/17 21:39 Dose: 10 mg Saccharomyces Boulardii (Florastor) 250 mg NG BID [facility] Last Admin: 12/31/17 17:10 Dose: 250 mg Fluticasone/Salmeterol (Advair Diskus 250/50) 1 puff INH RQ12 [facility] Last Admin: 01/01/18 07:34 Dose: Not Given Vancomycin HCl (Vancocin (Oral Or Rectal Use)) 250 mg NG QID [facility] PRN Reason: Protocol Last Admin: 12/31/17 21:40 Dose: 250 mg Vitamin A (Vitamin A & D Oint Ud Foilpak) 1 ea EXT Q8 PRN PRN Reason: Dry SKIN Last Admin: 12/23/17 17:24 Dose: 1 ea - Labs Labs: 01/01/18 07:12 01/01/18 07:12 PT 14.5 SECONDS (9.7-12.2) H 12/28/17 06:11 INR 1.3 12/28/17 06:11 APTT 29 SECONDS (21-34) 12/28/17 06:11 Assessment and Plan (1) C. difficile colitis Status: Acute (2) Dehydration Status: Acute (3) Septicemia Status: Acute (4) Anxiety Status: Acute (5) COPD (chronic obstructive pulmonary disease) Status: Acute (6) Depressed Status: Acute (7) Diarrhea Status: Acute (8) HTN (hypertension) Status: Acute
--- NOTE | 2018-01-01 09:57 | CP.PCM.PN ---
Subjective - Date & Time of Evaluation Date of Evaluation: 12/31/17 Time of Evaluation: 18:00 - Subjective Subjective: Pt seen and examined, on Iv protonix, is improving , on BIPAP, pt family decided not to ut pt on hospice, Her H and H is stable, s/p blood transfusion, Pt has some bleeding per rectum, pt is very anxious, restless, afebrile, no shortness f breath, no cough Objective - Vital Signs/Intake and Output Vital Signs (last 24 hours): Temp Pulse Resp BP Pulse Ox 98.4 F 88 20 100/62 98 01/01/18 07:58 01/01/18 07:58 01/01/18 07:58 01/01/18 07:58 01/01/18 07:58 Intake and Output: 01/01/18 01/01/18 06:59 18:59 Intake Total 1050 830 Output Total 1100 950 Balance -50 -120 - Medications Medications: Current Medications Albuterol/Ipratropium (Duoneb 3 Mg/0.5 Mg (3 Ml) Ud) 3 ml INH RQ6 [facility] Last Admin: 01/01/18 07:33 Dose: 3 ml Cholestyramine Resin (Questran) 4 gm PO QID [facility] Last Admin: 12/31/17 21:39 Dose: 4 gm Diltiazem HCl (Cardizem) 30 mg NG Q6H [facility] Last Admin: 01/01/18 05:11 Dose: 30 mg Cefepime HCl (Maxipime Iv 1 Gm Premix) 1 gm in 50 mls @ 100 mls/hr IVPB Q24H [facility] PRN Reason: Protocol Last Admin: 12/31/17 17:37 Dose: 100 mls/hr Metronidazole (Flagyl) 500 mg in 100 mls @ 100 mls/hr IVPB Q8 [facility] PRN Reason: Protocol Last Admin: 01/01/18 05:11 Dose: 100 mls/hr Fluconazole (Diflucan Iv 100 Mg/50 Ml Ns) 50 mls @ 50 mls/hr IVPB DAILY [facility] PRN Reason: Protocol Last Admin: 12/31/17 11:17 Dose: 50 mls/hr Levothyroxine Sodium (Synthroid) 100 mcg NG 0630 [facility] Last Admin: 01/01/18 05:32 Dose: 100 mcg Lorazepam (Ativan) 0.5 mg NG Q8 [facility] Last Admin: 01/01/18 05:10 Dose: 0.5 mg Methylprednisolone (Solu-Medrol) 40 mg IV DAILY [facility] Last Admin: 12/31/17 11:16 Dose: 40 mg Pantoprazole Sodium (Protonix Inj) 40 mg IVP BID [facility] Last Admin: 12/31/17 17:09 Dose: 40 mg Rosuvastatin Calcium (Crestor) 10 mg NG HS [facility] Last Admin: 12/31/17 21:39 Dose: 10 mg Saccharomyces Boulardii (Florastor) 250 mg NG BID [facility] Last Admin: 12/31/17 17:10 Dose: 250 mg Fluticasone/Salmeterol (Advair Diskus 250/50) 1 puff INH RQ12 [facility] Last Admin: 01/01/18 07:34 Dose: Not Given Vancomycin HCl (Vancocin (Oral Or Rectal Use)) 250 mg NG QID [facility] PRN Reason: Protocol Last Admin: 12/31/17 21:40 Dose: 250 mg Vitamin A (Vitamin A & D Oint Ud Foilpak) 1 ea EXT Q8 PRN PRN Reason: Dry SKIN Last Admin: 12/23/17 17:24 Dose: 1 ea - Labs Labs: 01/01/18 07:12 01/01/18 07:12 PT 14.5 SECONDS (9.7-12.2) H 12/28/17 06:11 INR 1.3 12/28/17 06:11 APTT 29 SECONDS (21-34) 12/28/17 06:11 - Constitutional Appears: No Acute Distress - Head Exam Head Exam: ATRAUMATIC, NORMAL INSPECTION, NORMOCEPHALIC - Eye Exam Eye Exam: EOMI, Normal appearance, PERRL Pupil Exam: NORMAL ACCOMODATION, PERRL - Respiratory Exam Respiratory Exam: Clear to Ausculation Bilateral, NORMAL BREATHING PATTERN - Cardiovascular Exam Cardiovascular Exam: REGULAR RHYTHM, +S1, +S2. absent: Murmur - GI/Abdominal Exam GI & Abdominal Exam: Soft, Normal Bowel Sounds. absent: Tenderness - Rectal Exam Rectal Exam: Deferred - Neurological Exam Neurological Exam: Abnormal Gait, Awake - Psychiatric Exam Psychiatric exam: Anxious Assessment and Plan (1) C. difficile colitis Status: Acute (2) Dehydration Status: Acute (3) Septicemia Status: Acute (4) Anxiety Status: Acute (5) COPD (chronic obstructive pulmonary disease) Status: Acute (6) Depressed Status: Acute (7) Diarrhea Status: Acute (8) HTN (hypertension) Status: Acute
[2018-01-01] MEDS: MethylPREDNISolone 40 mg Vial IV SCH (10:37)
[2018-01-01] MEDS: Fluconazole IV 100mg/50 ml NS 50 ML IVPB SCH (10:38)
[2018-01-01] MEDS: Cholestyramine 4 gm/Pkt UD PO SCH ×4 (10:38→22:14)
[2018-01-01] MEDS: Saccharomyces Boulardi 250 mg Cap NG SCH ×2 (10:38→18:07)
[2018-01-01] MEDS: Vancomycin 125 MG/5 ML SOLN (ORAL/RECTAL) NG SCH ×4 (10:48→21:31)
--- NOTE | 2018-01-01 13:56 | CP.PCM.PN ---
Subjective - Date & Time of Evaluation Date of Evaluation: 01/01/18 Time of Evaluation: 13:53 - Subjective Subjective: GI Fellow PGY4, progress note. Patient seen and examined at bedside. Patient is confused, crying, requesting to get out of bed. She does not participate with exam or answer direct yes or no questions when prompted. Nursing staff denies recent melena or rectal bleeding lastnight or today. Unable to complete 12pt ROS due to AMS. Objective - Vital Signs/Intake and Output Vital Signs (last 24 hours): Temp Pulse Resp BP Pulse Ox 98.4 F 88 20 100/62 98 01/01/18 07:58 01/01/18 07:58 01/01/18 07:58 01/01/18 07:58 01/01/18 07:58 Intake and Output: 01/01/18 01/01/18 06:59 18:59 Intake Total 1050 830 Output Total 1100 950 Balance -50 -120 - Medications Medications: Current Medications Albuterol/Ipratropium (Duoneb 3 Mg/0.5 Mg (3 Ml) Ud) 3 ml INH RQ6 [facility] Last Admin: 01/01/18 07:33 Dose: 3 ml Cholestyramine Resin (Questran) 4 gm PO QID [facility] Last Admin: 01/01/18 13:49 Dose: 4 gm Diltiazem HCl (Cardizem) 30 mg NG Q6H [facility] Last Admin: 01/01/18 12:37 Dose: 30 mg Cefepime HCl (Maxipime Iv 1 Gm Premix) 1 gm in 50 mls @ 100 mls/hr IVPB Q24H [facility] PRN Reason: Protocol Last Admin: 12/31/17 17:37 Dose: 100 mls/hr Metronidazole (Flagyl) 500 mg in 100 mls @ 100 mls/hr IVPB Q8 [facility] PRN Reason: Protocol Last Admin: 01/01/18 13:37 Dose: 100 mls/hr Fluconazole (Diflucan Iv 100 Mg/50 Ml Ns) 50 mls @ 50 mls/hr IVPB DAILY [facility] PRN Reason: Protocol Last Admin: 01/01/18 10:38 Dose: 50 mls/hr Levothyroxine Sodium (Synthroid) 100 mcg NG 0630 [facility] Last Admin: 01/01/18 05:32 Dose: 100 mcg Lorazepam (Ativan) 0.[address] [facility] Last Admin: 01/01/18 13:37 Dose: 0.5 mg Methylprednisolone (Solu-Medrol) [address] [facility] Last Admin: 01/01/18 10:37 Dose: 40 mg Pantoprazole Sodium (Protonix Inj) [address] [facility] Last Admin: 01/01/18 10:37 Dose: 40 mg Rosuvastatin Calcium (Crestor) [address] [facility] Last Admin: 12/31/17 21:39 Dose: 10 mg Saccharomyces Boulardii (Florastor) [address] [facility] Last Admin: 01/01/18 10:38 Dose: 250 mg Fluticasone/Salmeterol (Advair Diskus 250/50) [address] [facility] Last Admin: 01/01/18 07:34 Dose: Not Given Vancomycin HCl (Vancocin (Oral Or Rectal Use)) [address] [facility] PRN Reason: Protocol Last Admin: 01/01/18 13:37 Dose: 250 mg Vitamin A (Vitamin A & D Oint Ud Foilpak) 1 ea EXT Q8 PRN PRN Reason: Dry SKIN Last Admin: 12/23/17 17:24 Dose: 1 ea - Labs Labs: 01/01/18 07:12 01/01/18 07:12 PT 14.5 SECONDS (9.7-12.2) H 12/28/17 06:11 INR 1.3 12/28/17 06:11 APTT 29 SECONDS (21-34) 12/28/17 06:11 - Constitutional Appears: Non-toxic, No Acute Distress, Confused, Chronically Ill - Head Exam Head Exam: ATRAUMATIC, NORMAL INSPECTION, NORMOCEPHALIC - Eye Exam Eye Exam: EOMI, Normal appearance, PERRL - ENT Exam ENT Exam: Mucous Membranes Moist, Normal Exam - Respiratory Exam Respiratory Exam: Clear to Ausculation Bilateral, NORMAL BREATHING PATTERN - Cardiovascular Exam Cardiovascular Exam: REGULAR RHYTHM, +S1, +S2. absent: Murmur - GI/Abdominal Exam GI & Abdominal Exam: Soft, Normal Bowel Sounds. absent: Tenderness - Neurological Exam Neurological Exam: Awake. absent: Oriented x3 - Psychiatric Exam Psychiatric exam: Agitated. absent: Normal Affect, Normal Mood - Skin Skin Exam: Dry, Intact Assessment and Plan - Assessment and Plan (Free Text) Assessment: 82F with hx of COPD, gastritis, duodenal ulcers and CDiff with signs of gi bleed #C. Difficile infection #Acute blood loss anemia due to GI bleed #Duodenal ulcer #Gastritis #COPD #HTN #Anxiety #Sacral ulcer #Severely Malnourished Plan: -Continue supportive care -CT abd/pelv findings noted -C. Diff Ag and Tox negative as of 12/25/17 -EGD 12/26/17 benign w/out evidence for cause of active rectal bleeding -Possible Lower GI bleed (colitis) vs small bowel bleed. -Continue PPI IV BID -Continue C. diff managment: Flagyl, oral vanco -Continue all other care per primary and ICU team. -Patient Hb stable and has not had melena lastnight or today per nursing staff. -No endoscopic procedures planned.
--- NOTE | 2018-01-01 16:42 | CP.PCM.PN ---
Subjective - Date & Time of Evaluation Date of Evaluation: 01/01/18 Time of Evaluation: 11:00 - Subjective Subjective: Patient was seen and examined this morning at the bedside. Patient is not in acute distress. Patient has been off BiPAP since yesterday with 100% O2 saturation RA. Patient is afebrile. Patient has no acute complaints. ROS: Constitutional: Negative for fever and chills. Cardiovascular: Negative chest pain, palpitations. Respiratory: Negative for shortness of breath or cough. Gastrointestinal: Negative for nausea, vomiting, diarrhea. Physical Exam HEENT: Atraumatic, normocephalic, mucuous membranes moist Repiratory: Clear to auscultation bilaterally. No wheezing or rhonchi. No use of accessory muscles. Cardiovascular: +S1/ S2, regular rate and rhythm GI: Normal bowel sounds in all 4 quadrants, no tenderness, no distention Extremities: No LE edema Neurological: Alert and awake Assessment: 82 year old female with PMHx of CHF, dementia, anxiety, COPD, and HTN. Patient' s exam consistent with COPD and C. difficile colitis which is resolving with treatment. 1. C. difficile colitis Status: Acute - Continue ID antibiotic recommendations 2. COPD Exacerbation Status: Chronic - Albuterol/ Ipratropium 3 ml INH RQ6 - Continue BiPAP as needed Objective - Vital Signs/Intake and Output Vital Signs (last 24 hours): Temp Pulse Resp BP Pulse Ox 98.0 F 86 20 121/74 96 01/01/18 15:49 01/01/18 15:49 01/01/18 15:49 01/01/18 15:49 01/01/18 15:49 Intake and Output: 01/01/18 01/01/18 06:59 18:59 Intake Total 1050 1855 Output Total 1100 2100 Balance -50 -245 - Medications Medications: Current Medications Albuterol/Ipratropium (Duoneb 3 Mg/0.5 Mg (3 Ml) Ud) 3 ml INH RQ6 [facility] Last Admin: 01/01/18 13:55 Dose: 3 ml Cholestyramine Resin (Questran) 4 gm PO QID [facility] Last Admin: 01/01/18 13:49 Dose: 4 gm Diltiazem HCl (Cardizem) 30 mg NG Q6H [facility] Last Admin: 01/01/18 12:37 Dose: 30 mg Cefepime HCl (Maxipime Iv 1 Gm Premix) 1 gm in 50 mls @ 100 mls/hr IVPB Q24H [facility] PRN Reason: Protocol Last Admin: 12/31/17 17:37 Dose: 100 mls/hr Metronidazole (Flagyl) 500 mg in 100 mls @ 100 mls/hr IVPB Q8 [facility] PRN Reason: Protocol Last Admin: 01/01/18 13:37 Dose: 100 mls/hr Fluconazole (Diflucan Iv 100 Mg/50 Ml Ns) 50 mls @ 50 mls/hr IVPB DAILY [facility] PRN Reason: Protocol Last Admin: 01/01/18 10:38 Dose: 50 mls/hr Levothyroxine Sodium (Synthroid) 100 mcg NG 0630 [facility] Last Admin: 01/01/18 05:32 Dose: 100 mcg Lorazepam (Ativan) 0.5 mg NG Q8 [facility] Last Admin: 01/01/18 13:37 Dose: 0.5 mg Methylprednisolone (Solu-Medrol) 40 mg IV DAILY [facility] Last Admin: 01/01/18 10:37 Dose: 40 mg Pantoprazole Sodium (Protonix Inj) 40 mg IVP BID [facility] Last Admin: 01/01/18 10:37 Dose: 40 mg Rosuvastatin Calcium (Crestor) 10 mg NG HS [facility] Last Admin: 12/31/17 21:39 Dose: 10 mg Saccharomyces Boulardii (Florastor) 250 mg NG BID [facility] Last Admin: 01/01/18 10:38 Dose: 250 mg Fluticasone/Salmeterol (Advair Diskus 250/50) 1 puff INH RQ12 [facility] Last Admin: 01/01/18 07:34 Dose: Not Given Vancomycin HCl (Vancocin (Oral Or Rectal Use)) 250 mg NG QID [facility] PRN Reason: Protocol Last Admin: 01/01/18 13:37 Dose: 250 mg Vitamin A (Vitamin A & D Oint Ud Foilpak) 1 ea EXT Q8 PRN PRN Reason: Dry SKIN Last Admin: 12/23/17 17:24 Dose: 1 ea - Labs Labs: 01/01/18 07:12 01/01/18 07:12 PT 14.5 SECONDS (9.7-12.2) H 12/28/17 06:11 INR 1.3 12/28/17 06:11 APTT 29 SECONDS (21-34) 12/28/17 06:11 Assessment and Plan (1) C. difficile colitis Status: Acute (2) COPD exacerbation Status: Acute (3) Dehydration Status: Acute
--- NOTE | 2018-01-01 17:55 | CP.PCM.PN ---
Subjective - Date & Time of Evaluation Date of Evaluation: 01/01/18 Time of Evaluation: 17:55 - Subjective Subjective: CHIEF COMPLAINTS TODAY : AFEBRILE. RESTING, AWAKE on GT feedings VERBALISING TODAY . STATES DO NOT WANT TO BE ALONE ROS. HEENT : N. Resp : NO SOB,NO wheezing ,pleuritic CP ,or hemoptysis Cardio : No anginal CP, PND, orthopnea, palpitation GI : No abd.pain, n/v ,diarrhea or GI bleeding . 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 Musculoskel : No joint swelling , Derm : No rash Psych : Normal affect. Ext : No swelling ,calf pain PE. Pt. is awake ,PRESENTLY NOT IN ACUTE DISTRESS V.S As noted in the chart Head ,ear nose,throat and eyes : Normal. Neck : Supple with normal carotids. Lungs: DIMINISHED BREATH SOUNDS AT THE BASES Heart : S1 & S2 IRREGULAR.. Abd : Soft non tender with normal bowel sounds. Neuro : Moves all ext. with no localized deficit. Ext : +ve b/l EDEMA 1+ with intact pulses.Non tender calves Derm : No rashes or decubitus ulcer. LABS/RADIOLOGY: REVIEWED WBC 11.3 H/H 7.8 LOW CREAT 0.5/BUN 8 STOOL FOR C. DIFFICILE NEGATIVE 12/26/17 URINE CULTURES 12/25/17 REPEAT +VE YEAST URINE CULTURE +VE YEAST 12/19/17 BLOOD CULTURE 12/22/17 -VE 3 DAYS VIA CC Objective - Vital Signs/Intake and Output Vital Signs (last 24 hours): Temp Pulse Resp BP Pulse Ox 98.1 F 87 20 116/71 96 01/01/18 17:00 01/01/18 17:00 01/01/18 17:00 01/01/18 17:00 01/01/18 15:49 Intake and Output: 01/01/18 01/01/18 06:59 18:59 Intake Total 1050 1855 Output Total 1100 2100 Balance -50 -245 - Medications Medications: Current Medications Albuterol/Ipratropium (Duoneb 3 Mg/0.5 Mg (3 Ml) Ud) 3 ml INH RQ6 [facility] Last Admin: 01/01/18 13:55 Dose: 3 ml Cholestyramine Resin (Questran) 4 gm PO QID [facility] Last Admin: 01/01/18 13:49 Dose: 4 gm Diltiazem HCl (Cardizem) 30 mg NG Q6H [facility] Last Admin: 01/01/18 12:37 Dose: 30 mg Cefepime HCl (Maxipime Iv 1 Gm Premix) 1 gm in 50 mls @ 100 mls/hr IVPB Q24H [facility] PRN Reason: Protocol Last Admin: 12/31/17 17:37 Dose: 100 mls/hr Metronidazole (Flagyl) 500 mg in 100 mls @ 100 mls/hr IVPB Q8 [facility] PRN Reason: Protocol Last Admin: 01/01/18 13:37 Dose: 100 mls/hr Fluconazole (Diflucan Iv 100 Mg/50 Ml Ns) 50 mls @ 50 mls/hr IVPB DAILY [facility] PRN Reason: Protocol Last Admin: 01/01/18 10:38 Dose: 50 mls/hr Levothyroxine Sodium (Synthroid) 100 mcg NG 0630 [facility] Last Admin: 01/01/18 05:32 Dose: 100 mcg Lorazepam (Ativan) 0.5 mg NG Q8 [facility] Last Admin: 01/01/18 13:37 Dose: 0.5 mg Methylprednisolone (Solu-Medrol) 40 mg IV DAILY [facility] Last Admin: 01/01/18 10:37 Dose: 40 mg Pantoprazole Sodium (Protonix Inj) 40 mg IVP BID [facility] Last Admin: 01/01/18 10:37 Dose: 40 mg Rosuvastatin Calcium (Crestor) 10 mg NG HS [facility] Last Admin: 12/31/17 21:39 Dose: 10 mg Saccharomyces Boulardii (Florastor) 250 mg NG BID [facility] Last Admin: 01/01/18 10:38 Dose: 250 mg Fluticasone/Salmeterol (Advair Diskus 250/50) 1 puff INH RQ12 [facility] Last Admin: 01/01/18 07:34 Dose: Not Given Vancomycin HCl (Vancocin (Oral Or Rectal Use)) 250 mg NG QID [facility] PRN Reason: Protocol Last Admin: 01/01/18 13:37 Dose: 250 mg Vitamin A (Vitamin A & D Oint Ud Foilpak) 1 ea EXT Q8 PRN PRN Reason: Dry SKIN Last Admin: 12/23/17 17:24 Dose: 1 ea - Labs Labs: 01/01/18 07:12 01/01/18 07:12 PT 14.5 SECONDS (9.7-12.2) H 12/28/17 06:11 INR 1.3 12/28/17 06:11 APTT 29 SECONDS (21-34) 12/28/17 06:11 Assessment and Plan (1) Pneumonia Assessment & Plan: ON IV mAXIPEME 1 G EVERY 24 HOURLY 12/22/17. cONTINUE iv fLAGYL 500 EVERY 8 HOURLY. F/U SPUTUM CULTURE/AND GRAM STAIN. PULMONARY TOILET. PT DNR/DNI NOTED. Status: Acute (2) C. difficile colitis Assessment & Plan: REPEAT STOOL c. DIFFICILE NEGATIVE. 12/26/17, 12/25 CONTINUE BY MOUTH VANCOMYCIN 250 MG 4 TIMES A DAY Status: Acute (3) Dehydration Status: Acute (4) Hypernatremia Status: Resolved (5) Atrial fibrillation with rapid ventricular response Status: Acute (6) Breast mass, left Status: Acute (7) Candiduria Assessment & Plan: ON IV DIFLUCAN 100MG IVPB Q 24HRLY X 5DAYS 12/29/17. REPEAT UA AND URINE CULTURE CATHETHERIZED 01/02/18 Status: Acute (8) GIB (gastrointestinal bleeding) Status: Acute
[2018-01-01] MEDS: Cefepime IV 1 gm in Dextrose 1 GM/50 ML BAG IVPB SCH ×2 (18:10→20:58)
--- NOTE | 2018-01-01 21:53 | PN ---
DATE: 01/01/2018 FOLLOWUP SUBJECTIVE: The patient denies chest pain. She is oriented to place. She is asking when she will go home. PHYSICAL EXAMINATION: VITAL SIGNS: Blood pressure 121/74, heart rate 86, temperature 98, respirations 20. HEENT: Pale conjunctivae. CHEST: Clear. HEART: S1 and S2 are regular. ABDOMEN: Soft. EXTREMITIES: Significant muscle wasting. LABORATORY DATA: SMA-7: Sodium 129, potassium 3.6, chloride 104, CO2 of 21, glucose 117, BUN 8, creatinine 0.5. Magnesium today is 3.1, slightly elevated. Hemoglobin and hematocrit 7.8 and 23.2, white count 11.3, platelet count 165,000. ASSESSMENT: 1. Atrial tachycardia. 2. Worsening anemia. 3. Clostridium difficile colitis. 4. Enterococcus faecalis urinary tract infection. 5. Improved hypomagnesemia and improved hypokalemia with persistent hyponatremia. 6. Chronic obstructive pulmonary disease. RECOMMENDATIONS: Continue current IV cefepime and IV Flagyl. Continue oral vancomycin. Continue Synthroid 100 mcg once a day, Solu-Medrol 40 mg intravenously daily, Crestor 10 mg daily, and Cardizem 30 mg every 6 hours via nasogastric tube. Tru Vinson MD
[2018-01-01] MEDS ORDERED: Acetaminophen 650mg/20.3ml solution UD PO STA (22:40)
[2018-01-02] MEDS: Albuterol-Ipratrop 3 mg / 0.5 (3 ml) UD INH SCH ×4 (01:11→21:03)
[2018-01-02] MEDS: Levothyroxine 100 MCG TAB NG SCH (05:48)
[2018-01-02] MEDS: metroNIDAZOLE IV 500 mg/100 ml 500 MG/100 ML BAG IVPB SCH ×3 (05:48→21:41)
[2018-01-02 07:27] LABS: URINE BILIRUBIN NEGATIVE (NEGATIVE); URINE BLOOD NEGATIVE (NEGATIVE); URINE CLARITY Clear (Clear); URINE COLOR Yellow (YELLOW); URINE GLUCOSE (UA) NORMAL (Normal); URINE LEUKOCYTE ESTERASE NEG Leu/uL (Negative); URINE PROTEIN NEGATIVE (NEGATIVE); URINE UROBILINOGEN NORMAL mg/dL (0.2-1.0)
--- NOTE | 2018-01-02 08:34 | RAD ---
Date of service: 01/02/2018 HISTORY: NGT placement COMPARISON: 12/26/2017 chest x-ray FINDINGS: LUNGS: Right upper lobe find patchy nodular opacity -indeterminate -increased in conspicuity. Bibasilar hazy opacities -inferred as bilateral pleural effusions with passive compressive atelectasis and/or infiltrates here. Left much more than right. Left findings are similar to the prior exam 6 to 7 mm nodular opacity not significantly change projects over the lateral left mid zone. PLEURA: Bilateral pleural effusions -as above. No pneumothorax. CARDIOVASCULAR: Normal heart size. No ashlie pulmonary venous congestion appreciated Right PICC line tip in right atrium unchanged. OSSEOUS STRUCTURES: No significant abnormalities. VISUALIZED UPPER ABDOMEN: NG tube tip in stomach OTHER FINDINGS: None. IMPRESSION: Right upper lobe patchy nodular opacity -increasing conspicuity with the most recent chest x-ray not apparent on the 12/16/2017 study. An interval infiltrate is 1 consideration. Bilateral pleural effusions with inferred compressive atelectasis. Concomitant underlying infiltrate not excluded. The left is greater than the right. Findings are similar to prior most recent exam NG tube and PICC line positions- satisfactory
--- NOTE | 2018-01-02 09:02 | PN ---
DATE: 12/21/2017 HISTORY OF PRESENT ILLNESS: The patient is weak. The patient is anxious. She is hyperventilating. She is tachycardic. She is off BiPAP. She is breathing on her own. She still has diarrhea. She is DNR/DNI. She was seen by palliative care. PHYSICAL EXAMINATION 101/65, pulse 108, respiratory rate 21 SIGNS: Temperature 98.4. LUNGS: Bilateral scattered rhonchi. HEART: S1, S2 regular. ABDOMEN: Soft. ASSESSMENT: 1. Chronic obstructive pulmonary disease exacerbation. 2. Clostridium difficile colitis. 3. Dehydration. 4. Hypertension. 5. Severe anxiety. PLAN: Admit, continue current medication, monitor the patient. ISHAAN
[2018-01-02] MEDS: Fluticasone-Salmeterol 250-50mcg Diskus INH SCH ×2 (09:15→21:02)
[2018-01-02] MEDS: Fluconazole IV 100mg/50 ml NS 50 ML IVPB SCH (10:03)
[2018-01-02] MEDS: Cholestyramine 4 gm/Pkt UD PO SCH ×5 (10:03→21:41)
[2018-01-02] MEDS: MethylPREDNISolone 40 mg Vial IV SCH (10:04)
[2018-01-02] MEDS: Vancomycin 125 MG/5 ML SOLN (ORAL/RECTAL) NG SCH ×4 (10:04→17:08)
[2018-01-02] MEDS: Saccharomyces Boulardi 250 mg Cap NG SCH ×3 (10:04→17:09)
[2018-01-02 14:09] LABS: BASO % 0.4 % (0.0-2.0); EOS % 0.1 % (0.0-4.0); LYMPH # 0.3 K/uL (1.0-4.3); LYMPH % 2.4 % (20.0-40.0); MEAN CELL VOLUME 88.2 fL (81.0-99.0); MEAN CORPUSCULAR HEMOGLOBIN 30.7 pg (27.0-31.0); MEAN CORPUSCULAR HGB CONC 34.8 g/dL (33.0-37.0); MEAN PLATELET VOLUME 7.6 fL (7.2-11.7); MONO # 0.3 K/uL (0.0-0.8); MONO % 2.3 % (0.0-10.0); NEUT # 11.8 K/uL (1.8-7.0); NEUT % 94.8 % (50.0-75.0); PLATELET COUNT 145 K/uL (130-400); RBC 3.97 Mil/uL (3.80-5.20); RED CELL DISTRIBUTION WIDTH 15.8 % (11.5-14.5); WHITE BLOOD COUNT 12.5 K/uL (4.8-10.8)
[2018-01-02 14:16] LABS: HEMOGLOBIN 12.2 g/dL (11.0-16.0)
[2018-01-02 14:19] LABS: BLOOD UREA NITROGEN 8 mg/dL (7-17); CALCIUM 7.2 mg/dl (8.6-10.4); GFR AFRICAN-AMERICAN > 60; GFR NON-AFRICAN AMERICAN > 60
[2018-01-02 14:45] LABS: BANDS 2 % (0-2); LYMPHOCYTE 2 % (20-40); MONOCYTE 2 % (0-10); MYELOCYTE 1 % (0-0); NEUTROPHIL 93 % (50-75); TOTAL CELLS COUNTED 100
[2018-01-02 14:46] LABS: ANISOCYTOSIS SLIGHT; PLATELET ESTIMATE NORMAL (NORMAL)
[2018-01-02 14:47] LABS: BURR CELLS SLIGHT; OVALOCYTES SLIGHT
--- NOTE | 2018-01-02 16:42 | CP.PCM.PN ---
Subjective - Date & Time of Evaluation Date of Evaluation: 01/02/18 Time of Evaluation: 11:50 - Subjective Subjective: Patient was seen and examined this morning at bedside. Patient is in no acute distress. Patient continuous to be off BiPAP. Patient's O2 saturation is 100% RA on nasal canula. Patient is afebrile. Patient has no acute complaints. ROS: Constitutional: Negative for fever and chills. Cardiovascular: Negative chest pain, palpitations. Respiratory: Negative for shortness of breath or cough. Gastrointestinal: Negative for nausea, vomiting, diarrhea. Physical Exam HEENT: Atraumatic, normocephalic, mucuous membranes moist Repiratory: Clear to auscultation bilaterally. No wheezing or rhonchi. No use of accessory muscles. Cardiovascular: +S1/ S2, regular rate and rhythm GI: Normal bowel sounds in all 4 quadrants, no tenderness, no distention Extremities: No LE edema Neurological: Alert and awake Assessment: 82 year old female with PMHx of CHF, dementia, anxiety, COPD, and HTN. Patient' s exam consistent with COPD exacerbation. 1. Pneumonia Status: Acute - Cefepime HCl 1 gm in 50 mls @ 100 mls/ hr IVPB Q24H - Metronidazole 500 mg in 100 mls @ 100 mls/ hr IVPB Q8 2. COPD Exacerbation Status: Chronic - Albuterol/ Ipratropium 3 ml INH RQ6 - Continue BiPAP as needed Objective - Vital Signs/Intake and Output Vital Signs (last 24 hours): Temp Pulse Resp BP Pulse Ox 98.0 F 78 20 112/68 96 01/02/18 15:50 01/02/18 15:50 01/02/18 15:50 01/02/18 15:50 01/02/18 15:50 Intake and Output: 01/02/18 01/02/18 06:59 18:59 Intake Total 1559 1840 Output Total 950 1200 Balance 609 640 - Medications Medications: Current Medications Albuterol/Ipratropium (Duoneb 3 Mg/0.5 Mg (3 Ml) Ud) 3 ml INH RQ6 [facility] Last Admin: 01/02/18 13:59 Dose: Not Given Cholestyramine Resin (Questran) 4 gm PO QID [facility] Last Admin: 01/02/18 13:58 Dose: 4 gm Diltiazem HCl (Cardizem) 30 mg NG Q6H [facility] Last Admin: 01/02/18 12:49 Dose: Not Given Cefepime HCl (Maxipime Iv 1 Gm Premix) 1 gm in 50 mls @ 100 mls/hr IVPB Q24H [facility] PRN Reason: Protocol Last Admin: 01/01/18 20:58 Dose: 100 mls/hr Metronidazole (Flagyl) 500 mg in 100 mls @ 100 mls/hr IVPB Q8 [facility] PRN Reason: Protocol Last Admin: 01/02/18 13:57 Dose: 100 mls/hr Fluconazole (Diflucan Iv 100 Mg/50 Ml Ns) 50 mls @ 50 mls/hr IVPB DAILY [facility] PRN Reason: Protocol Last Admin: 01/02/18 10:03 Dose: 50 mls/hr Levothyroxine Sodium (Synthroid) 100 mcg NG 0630 [facility] Last Admin: 01/02/18 05:48 Dose: 100 mcg Lorazepam (Ativan) 0.5 mg NG Q8 [facility] Last Admin: 01/02/18 13:57 Dose: 0.5 mg Pantoprazole Sodium (Protonix Inj) 40 mg IVP BID [facility] Last Admin: 01/02/18 10:03 Dose: 40 mg Rosuvastatin Calcium (Crestor) 10 mg NG HS [facility] Last Admin: 01/01/18 21:28 Dose: 10 mg Saccharomyces Boulardii (Florastor) 250 mg NG BID [facility] Last Admin: 01/02/18 10:26 Dose: Not Given Fluticasone/Salmeterol (Advair Diskus 250/50) 1 puff INH RQ12 [facility] Last Admin: 01/02/18 09:15 Dose: Not Given Vancomycin HCl (Vancocin (Oral Or Rectal Use)) 250 mg NG QID [facility] PRN Reason: Protocol Last Admin: 01/02/18 13:57 Dose: 250 mg Vitamin A (Vitamin A & D Oint Ud Foilpak) 1 ea EXT Q8 PRN PRN Reason: Dry SKIN Last Admin: 12/23/17 17:24 Dose: 1 ea - Labs Labs: 01/02/18 14:01 01/02/18 14:01 PT 14.5 SECONDS (9.7-12.2) H 12/28/17 06:11 INR 1.3 12/28/17 06:11 APTT 29 SECONDS (21-34) 12/28/17 06:11 Assessment and Plan (1) C. difficile colitis Status: Acute (2) COPD exacerbation Status: Acute (3) Dehydration Status: Acute
--- NOTE | 2018-01-02 16:52 | CP.PCM.PN ---
Subjective - Date & Time of Evaluation Date of Evaluation: 01/02/18 Time of Evaluation: 16:52 - Subjective Subjective: CHIEF COMPLAINTS TODAY : AFEBRILE. NO NEW COMPLAINTS OFF BIPAP. CRYING TODAY, WANTS TO GET OOB. PULLED OUT NGT ROS. HEENT : N. Resp : NO SOB,NO wheezing ,pleuritic CP ,or hemoptysis Cardio : No anginal CP, PND, orthopnea, palpitation GI : No abd.pain, n/v ,diarrhea or GI bleeding . 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 Musculoskel : No joint swelling , Derm : No rash Psych : Normal affect. Ext : No swelling ,calf pain PE. Pt. is awake ,PRESENTLY NOT IN ACUTE DISTRESS V.S As noted in the chart Head ,ear nose,throat and eyes : Normal. Neck : Supple with normal carotids. Lungs: DIMINISHED BREATH SOUNDS AT THE BASES Heart : S1 & S2 IRREGULAR.. Abd : Soft non tender with normal bowel sounds Neuro : Moves all ext. with no localized deficit. Ext : +ve b/l EDEMA 1+ with intact pulses.Non tender calves Derm : No rashes or decubitus ulcer. LABS/RADIOLOGY: REVIEWED STOOL FOR C. DIFFICILE NEGATIVE 12/26/17 REPEAT UA -VE 01/02 -CULTURE -P URINE CULTURES 12/25/17 REPEAT +VE YEAST BLOOD CULTURE 12/22/17 -VE 3 DAYS VIA CC Objective - Vital Signs/Intake and Output Vital Signs (last 24 hours): Temp Pulse Resp BP Pulse Ox 98.0 F 78 20 112/68 96 01/02/18 15:50 01/02/18 15:50 01/02/18 15:50 01/02/18 15:50 01/02/18 15:50 Intake and Output: 01/02/18 01/02/18 06:59 18:59 Intake Total 1559 1840 Output Total 950 1200 Balance 609 640 - Medications Medications: Current Medications Albuterol/Ipratropium (Duoneb 3 Mg/0.5 Mg (3 Ml) Ud) 3 ml INH RQ6 [facility] Last Admin: 01/02/18 13:59 Dose: Not Given Cholestyramine Resin (Questran) 4 gm PO QID [facility] Last Admin: 01/02/18 13:58 Dose: 4 gm Diltiazem HCl (Cardizem) 30 mg NG Q6H [facility] Last Admin: 01/02/18 12:49 Dose: Not Given Cefepime HCl (Maxipime Iv 1 Gm Premix) 1 gm in 50 mls @ 100 mls/hr IVPB Q24H [facility] PRN Reason: Protocol Last Admin: 01/01/18 20:58 Dose: 100 mls/hr Metronidazole (Flagyl) 500 mg in 100 mls @ 100 mls/hr IVPB Q8 [facility] PRN Reason: Protocol Last Admin: 01/02/18 13:57 Dose: 100 mls/hr Fluconazole (Diflucan Iv 100 Mg/50 Ml Ns) 50 mls @ 50 mls/hr IVPB DAILY [facility] PRN Reason: Protocol Last Admin: 01/02/18 10:03 Dose: 50 mls/hr Levothyroxine Sodium (Synthroid) 100 mcg NG 0630 [facility] Last Admin: 01/02/18 05:48 Dose: 100 mcg Lorazepam (Ativan) 0.5 mg NG Q8 [facility] Last Admin: 01/02/18 13:57 Dose: 0.5 mg Pantoprazole Sodium (Protonix Inj) 40 mg IVP BID [facility] Last Admin: 01/02/18 10:03 Dose: 40 mg Rosuvastatin Calcium (Crestor) 10 mg NG HS [facility] Last Admin: 01/01/18 21:28 Dose: 10 mg Saccharomyces Boulardii (Florastor) 250 mg NG BID [facility] Last Admin: 01/02/18 10:26 Dose: Not Given Fluticasone/Salmeterol (Advair Diskus 250/50) 1 puff INH RQ12 [facility] Last Admin: 01/02/18 09:15 Dose: Not Given Vancomycin HCl (Vancocin (Oral Or Rectal Use)) 250 mg NG QID [facility] PRN Reason: Protocol Last Admin: 01/02/18 13:57 Dose: 250 mg Vitamin A (Vitamin A & D Oint Ud Foilpak) 1 ea EXT Q8 PRN PRN Reason: Dry SKIN Last Admin: 12/23/17 17:24 Dose: 1 ea - Labs Labs: 01/02/18 14:01 01/02/18 14:01 PT 14.5 SECONDS (9.7-12.2) H 12/28/17 06:11 INR 1.3 12/28/17 06:11 APTT 29 SECONDS (21-34) 12/28/17 06:11 Assessment and Plan (1) Pneumonia Assessment & Plan: ON IV mAXIPEME 1 G EVERY 24 HOURLY 12/22/17. X TOTAL OF 14DAYS cONTINUE iv fLAGYL 500 EVERY 8 HOURLY. F/U SPUTUM CULTURE/AND GRAM STAIN. PULMONARY TOILET. PT DNR/DNI NOTED. Status: Acute (2) C. difficile colitis Assessment & Plan: REPEAT STOOL c. DIFFICILE NEGATIVE. 12/25/17, 12/26/17 CONTINUE BY MOUTH VANCOMYCIN 250 MG 4 TIMES A DAY Status: Acute (3) Dehydration Status: Acute (4) Hypernatremia Status: Resolved (5) Atrial fibrillation with rapid ventricular response Status: Acute (6) Breast mass, left Status: Acute (7) Candiduria Assessment & Plan: ON IV DIFLUCAN 100MG IVPB Q 24HRLY - 12/29/17 X 3 DAYS MORE TILL 01/05/18 F/U REPEAT UA AND URINE CULTURE CATHETHERIZED 01/02/18 Status: Acute (8) GIB (gastrointestinal bleeding) Status: Acute
[2018-01-02] MEDS: Cefepime IV 1 gm in Dextrose 1 GM/50 ML BAG IVPB SCH (18:28)
--- NOTE | 2018-01-02 22:16 | CP.PCM.PN ---
Subjective - Date & Time of Evaluation Date of Evaluation: 01/02/18 Time of Evaluation: 17:35 - Subjective Subjective: Patient was seen and examined this morning at bedside. Patient is in no acute distress. Patient continuous to be off BiPAP. Patient's O2 saturation is 100% RA on nasal canula. Patient is afebrile. Patient has no acute complaints. Objective - Vital Signs/Intake and Output Vital Signs (last 24 hours): Temp Pulse Resp BP Pulse Ox 98.0 F 78 20 112/68 96 01/02/18 15:50 01/02/18 15:50 01/02/18 15:50 01/02/18 15:50 01/02/18 15:50 Intake and Output: 01/02/18 01/03/18 18:59 06:59 Intake Total 1840 350 Output Total 1200 550 Balance 640 -200 - Medications Medications: Current Medications Albuterol/Ipratropium (Duoneb 3 Mg/0.5 Mg (3 Ml) Ud) 3 ml INH RQ6 [facility] Last Admin: 01/02/18 21:03 Dose: 3 ml Cholestyramine Resin (Questran) 4 gm PO QID [facility] Last Admin: 01/02/18 21:41 Dose: 4 gm Diltiazem HCl (Cardizem) 30 mg NG Q6H [facility] Last Admin: 01/02/18 17:36 Dose: Not Given Cefepime HCl (Maxipime Iv 1 Gm Premix) 1 gm in 50 mls @ 100 mls/hr IVPB Q24H [facility] PRN Reason: Protocol Last Admin: 01/02/18 18:28 Dose: 100 mls/hr Metronidazole (Flagyl) 500 mg in 100 mls @ 100 mls/hr IVPB Q8 [facility] PRN Reason: Protocol Last Admin: 01/02/18 21:41 Dose: 100 mls/hr Fluconazole (Diflucan Iv 100 Mg/50 Ml Ns) 50 mls @ 50 mls/hr IVPB DAILY [facility] PRN Reason: Protocol Last Admin: 01/02/18 10:03 Dose: 50 mls/hr Levothyroxine Sodium (Synthroid) 100 mcg NG 0630 [facility] Last Admin: 01/02/18 05:48 Dose: 100 mcg Lorazepam (Ativan) 0.5 mg NG Q8 [facility] Last Admin: 01/02/18 21:40 Dose: 0.5 mg Pantoprazole Sodium (Protonix Inj) 40 mg IVP BID [facility] Last Admin: 01/02/18 17:09 Dose: 40 mg Rosuvastatin Calcium (Crestor) 10 mg NG HS [facility] Last Admin: 01/02/18 21:40 Dose: 10 mg Saccharomyces Boulardii (Florastor) 250 mg NG BID [facility] Last Admin: 01/02/18 17:09 Dose: 250 mg Fluticasone/Salmeterol (Advair Diskus 250/50) 1 puff INH RQ12 [facility] Last Admin: 01/02/18 21:02 Dose: 1 puff Vancomycin HCl (Vancocin (Oral Or Rectal Use)) 250 mg NG QID [facility] PRN Reason: Protocol Last Admin: 01/02/18 17:08 Dose: 250 mg Vitamin A (Vitamin A & D Oint Ud Foilpak) 1 ea EXT Q8 PRN PRN Reason: Dry SKIN Last Admin: 12/23/17 17:24 Dose: 1 ea - Labs Labs: 01/02/18 14:01 01/02/18 14:01 PT 14.5 SECONDS (9.7-12.2) H 12/28/17 06:11 INR 1.3 12/28/17 06:11 APTT 29 SECONDS (21-34) 12/28/17 06:11 Assessment and Plan (1) C. difficile colitis Status: Acute (2) Dehydration Status: Acute (3) Septicemia Status: Acute (4) Anxiety Status: Acute (5) COPD (chronic obstructive pulmonary disease) Status: Acute (6) Depressed Status: Acute (7) Diarrhea Status: Acute (8) HTN (hypertension) Status: Acute
--- NOTE | 2018-01-02 22:51 | PN ---
DATE: 01/02/2018 FOLLOWUP SUBJECTIVE: The patient's nasogastric tube was removed and oral feeding was started. She still has a rectal tube. She has mittens on, but she is oriented to place and cooperative to some extent. Does not appear to be in any respiratory distress. PHYSICAL EXAMINATION: VITAL SIGNS: Blood pressure 112/68, heart rate 78, temperature 98, respirations 20. HEENT: Normocephalic. CHEST: Bilateral rhonchi. HEART: S1 and S2 regular. ABDOMEN: Soft. EXTREMITIES: No pedal edema. LABORATORY DATA: Today's SMA-7: Sodium 133, potassium 3.5, chloride 106, CO2 of 22, glucose 114, BUN 8, creatinine 0.5, carbon dioxide is 22. Calcium is 7.2. Today's chest x-ray could not be opened on [facility] database; however, official report revealed right upper lobe patchy nodular opacity, increasing with a most recent chest x-ray and interval infiltrate is a consideration. Bilateral pleural effusion with compression atelectasis, concomitant underlying infiltrate not excluded, left greater than right. ASSESSMENT: 1. Consider bilateral pneumonia. 2. Atrial tachycardia and periods of multifocal atrial tachycardia. 3. Chronic obstructive lung disease. 4. Hypokalemia. 5. Clostridium difficile colitis. 6. Enterococcus faecalis urinary tract infection. RECOMMENDATIONS: Case was discussed at length with Dr. Lex Patel. The patient will be maintained on Crestor 10 mg once a day, IV Flagyl 500 mg every 8 hours, IV Maxipime at 1 gm daily, oral vancomycin 250 mg four times a day, Synthroid 100 mcg once a day. Tru Vinson MD
[2018-01-03] MEDS: Albuterol-Ipratrop 3 mg / 0.5 (3 ml) UD INH SCH ×4 (01:20→20:08)
[2018-01-03] MEDS: metroNIDAZOLE IV 500 mg/100 ml 500 MG/100 ML BAG IVPB SCH ×3 (06:23→22:00)
[2018-01-03] MEDS: Levothyroxine 100 MCG TAB NG SCH ×2 (06:34→07:35)
[2018-01-03] MEDS: Fluticasone-Salmeterol 250-50mcg Diskus INH SCH ×2 (08:16→20:11)
[2018-01-03] MEDS: Vancomycin 125 MG/5 ML SOLN (ORAL/RECTAL) NG SCH ×4 (10:11→23:00)
[2018-01-03] MEDS: Cholestyramine 4 gm/Pkt UD PO SCH ×4 (10:11→21:26)
[2018-01-03] MEDS: Saccharomyces Boulardi 250 mg Cap NG SCH ×2 (10:11→17:42)
[2018-01-03] MEDS: Fluconazole IV 100mg/50 ml NS 50 ML IVPB SCH (10:11)
--- NOTE | 2018-01-03 15:17 | PN ---
DATE: 01/03/2018 LOCATION: 371, bed A. SUBJECTIVE: This is an 82 years old female seen for GI followup today as requested by the staff due to reported some bloody bowel movement, but less than before, received blood transfusion for which her latest hemoglobin was 12.2, hematocrit 35 with leukocytosis of 12.5. No reported actual chest pain, palpitation. The patient is still on BiPAP on and off, appear to be somewhat more awake. It has to be mentioned that the patient had been fed through an NG tube recently. Yesterday's chest x-ray official report is seen, indicative of right upper lobe patchy infiltrate with bilateral pleural effusion. PHYSICAL EXAMINATION: GENERAL: An 82 years old female. VITAL SIGNS: The patient is afebrile with pulse of 64, respiratory rate 20 to 22, and blood pressure of 110/70. HEENT: Showed pale, dry oral mucous membrane. Nonicteric sclerae. LUNGS: Few scattered crepitation. Decreased air entry at bases. HEART: Positive S1 and S2. ABDOMEN: Soft with mild generalized tenderness. No mass or organomegaly. No rebound tenderness or guarding. EXTREMITIES: With lower extremities mild edematous changes. No clubbing or cyanosis. NEUROLOGIC: No reported new neurological deficits, sensory or motor. No focal deficits. Peripheral pulses are decreased bilaterally. IMPRESSION: 1. Gastrointestinal blood loss with re-exacerbation of peptic ulcer disease. The patient is in a state of do not resuscitate and do not intubate. 2. Pneumonia, pleural effusion with respiratory insufficiency. 3. Electrolyte imbalance. 4. Known history of, but not limited to chronic obstructive pulmonary disease, hypertension, severe anxiety syndrome. 5. 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 SUGGESTION: 1. Continue current management. 2. Repeat stool for C. diff. 3. Peripheral hyperalimentation due to the patient's malnutrition with hypoalbuminemia and hypoproteinemia. 4. No aggressive GI workup due to the patient's clinical presentation. The patient is awaiting for possible hospice bed. 5. Further recommendation to follow. Sarah Sanders MD
--- NOTE | 2018-01-03 16:25 | CP.PCM.PN ---
Subjective - Date & Time of Evaluation Date of Evaluation: 01/03/18 Time of Evaluation: 10:45 - Subjective Subjective: Patient was seen and examined this morning at bedside. Patient is awake and alert. Patient found receiving physical therapy. Patient is in no acute distress. Patient continuous to be off BiPAP. Patient's O2 saturation maintained at 100% on nasal cannula O2. Patient is afebrile. Patient has no acute complaints. ROS: Constitutional: Negative for fever and chills. Cardiovascular: Negative chest pain, palpitations. Respiratory: Negative for shortness of breath or cough. Gastrointestinal: Negative for nausea, vomiting, diarrhea. Physical Exam HEENT: Atraumatic, normocephalic, mucuous membranes moist Repiratory: Clear to auscultation bilaterally. No wheezing or rhonchi. No use of accessory muscles. Cardiovascular: +S1/ S2, regular rate and rhythm GI: Normal bowel sounds in all 4 quadrants, no tenderness, no distention Extremities: No LE edema Neurological: Alert and awake Assessment: 82 year old female with PMHx of CHF, dementia, anxiety, COPD, and HTN. Patient' s exam consistent with COPDexacerbation. 1. Pneumonia Status: Acute - Cefepime HCl 1 gm in 50 mls @ 100 mls/ hr IVPB Q24H - Metronidazole 500 mg in 100 mls @ 100 mls/ hr IVPB Q8 2. COPD Exacerbation Status: Chronic - Albuterol/ Ipratropium 3 ml INH RQ6 - Continue BiPAP as needed Objective - Vital Signs/Intake and Output Vital Signs (last 24 hours): Temp Pulse Resp BP Pulse Ox 98.1 F 68 20 107/62 100 01/03/18 07:00 01/03/18 07:00 01/03/18 07:00 01/03/18 11:25 01/03/18 07:00 Intake and Output: 01/03/18 01/03/18 06:59 18:59 Intake Total 350 550 Output Total 550 1100 Balance -200 -550 - Medications Medications: Current Medications Albuterol/Ipratropium (Duoneb 3 Mg/0.5 Mg (3 Ml) Ud) 3 ml INH RQ6 [facility] Last Admin: 01/03/18 13:50 Dose: 3 ml Cholestyramine Resin (Questran) 4 gm PO QID [facility] Last Admin: 01/03/18 13:30 Dose: 4 gm Diltiazem HCl (Cardizem) 30 mg NG Q6H [facility] Last Admin: 01/03/18 11:24 Dose: Not Given Cefepime HCl (Maxipime Iv 1 Gm Premix) 1 gm in 50 mls @ 100 mls/hr IVPB Q24H [facility] PRN Reason: Protocol Last Admin: 01/02/18 18:28 Dose: 100 mls/hr Metronidazole (Flagyl) 500 mg in 100 mls @ 100 mls/hr IVPB Q8 [facility] PRN Reason: Protocol Last Admin: 01/03/18 13:22 Dose: 100 mls/hr Fluconazole (Diflucan Iv 100 Mg/50 Ml Ns) 50 mls @ 50 mls/hr IVPB DAILY [facility] PRN Reason: Protocol Last Admin: 01/03/18 10:11 Dose: 50 mls/hr Levothyroxine Sodium (Synthroid) 100 mcg NG 0630 [facility] Last Admin: 01/03/18 07:35 Dose: 100 mcg Lorazepam (Ativan) 0.5 mg NG Q8 [facility] Last Admin: 01/03/18 13:22 Dose: 0.5 mg Pantoprazole Sodium (Protonix Inj) 40 mg IVP BID [facility] Last Admin: 01/03/18 10:11 Dose: 40 mg Rosuvastatin Calcium (Crestor) 10 mg NG HS [facility] Last Admin: 01/02/18 21:40 Dose: 10 mg Saccharomyces Boulardii (Florastor) 250 mg NG BID [facility] Last Admin: 01/03/18 10:11 Dose: 250 mg Fluticasone/Salmeterol (Advair Diskus 250/50) 1 puff INH RQ12 [facility] Last Admin: 01/03/18 08:16 Dose: Not Given Vancomycin HCl (Vancocin (Oral Or Rectal Use)) 250 mg NG QID [facility] PRN Reason: Protocol Last Admin: 01/03/18 13:30 Dose: 250 mg Vitamin A (Vitamin A & D Oint Ud Foilpak) 1 ea EXT Q8 PRN PRN Reason: Dry SKIN Last Admin: 12/23/17 17:24 Dose: 1 ea - Labs Labs: 01/02/18 14:01 01/02/18 14:01 PT 14.5 SECONDS (9.7-12.2) H 12/28/17 06:11 INR 1.3 12/28/17 06:11 APTT 29 SECONDS (21-34) 12/28/17 06:11 Assessment and Plan (1) C. difficile colitis Status: Acute (2) COPD exacerbation Status: Acute (3) Dehydration Status: Acute
[2018-01-03] MEDS: Cefepime IV 1 gm in Dextrose 1 GM/50 ML BAG IVPB SCH (17:42)
[2018-01-03] MEDS ORDERED: Potassium Chloride 20 mEq/15 ml LIQ UD PO ONE (18:00)
--- NOTE | 2018-01-03 18:23 | CP.PCM.PN ---
Subjective - Date & Time of Evaluation Date of Evaluation: 01/03/18 Time of Evaluation: 18:23 - Subjective Subjective: CHIEF COMPLAINTS TODAY : AFEBRILE. NO NEW COMPLAINTS OFF BIPAP. lying comfortably ROS. HEENT : N. Resp : NO SOB,NO wheezing ,pleuritic CP ,or hemoptysis Cardio : No anginal CP, PND, orthopnea, palpitation GI : No abd.pain, n/v ,diarrhea or GI bleeding . COUNSELLING PSYCHOLOGIST : No headache, vertigo, focal deficit. Musculoskel : No joint swelling , Derm : No rash Psych : Normal affect. Ext : No swelling ,calf pain PE. Pt. is awake ,PRESENTLY NOT IN ACUTE DISTRESS V.S As noted in the chart Head ,ear nose,throat and eyes : Normal. Neck : Supple with normal carotids. Lungs: DIMINISHED BREATH SOUNDS AT THE BASES Heart : S1 & S2 IRREGULAR.. Abd : Soft non tender with normal bowel sounds Neuro : Moves all ext. with no localized deficit. Ext : +ve b/l EDEMA 1+ with intact pulses.Non tender calves Derm : No rashes or decubitus ulcer. LABS/RADIOLOGY: REVIEWED STOOL FOR C. DIFFICILE NEGATIVE 12/26/17 REPEAT UA -VE 01/02/18 -CULTURE - NO GROWTH. URINE CULTURES 12/25/17 REPEAT +VE YEAST BLOOD CULTURE 12/22/17 -VE 3 DAYS VIA CC Objective - Vital Signs/Intake and Output Vital Signs (last 24 hours): Temp Pulse Resp BP Pulse Ox 97.5 F L 76 20 127/62 100 01/03/18 16:00 01/03/18 16:00 01/03/18 16:00 01/03/18 16:00 01/03/18 16:00 Intake and Output: 01/03/18 01/03/18 06:59 18:59 Intake Total 350 550 Output Total 550 1100 Balance -200 -550 - Medications Medications: Current Medications Albuterol/Ipratropium (Duoneb 3 Mg/0.5 Mg (3 Ml) Ud) 3 ml INH RQ6 [facility] Last Admin: 01/03/18 13:50 Dose: 3 ml Cholestyramine Resin (Questran) 4 gm PO QID [facility] Last Admin: 01/03/18 17:42 Dose: 4 gm Diltiazem HCl (Cardizem) 30 mg NG Q6H [facility] Last Admin: 01/03/18 17:42 Dose: 30 mg Cefepime HCl (Maxipime Iv 1 Gm Premix) 1 gm in 50 mls @ 100 mls/hr IVPB Q24H [facility] PRN Reason: Protocol Last Admin: 01/03/18 17:42 Dose: 100 mls/hr Metronidazole (Flagyl) 500 mg in 100 mls @ 100 mls/hr IVPB Q8 [facility] PRN Reason: Protocol Last Admin: 01/03/18 13:22 Dose: 100 mls/hr Fluconazole (Diflucan Iv 100 Mg/50 Ml Ns) 50 mls @ 50 mls/hr IVPB DAILY [facility] PRN Reason: Protocol Last Admin: 01/03/18 10:11 Dose: 50 mls/hr Potassium Chloride (Potassium Chloride 20 Meq/100 Ml) 20 meq in 100 mls @ 50 mls/hr IVPB ONCE ONE Stop: 01/03/18 19:33 Levothyroxine Sodium (Synthroid) 100 mcg NG 0630 [facility] Last Admin: 01/03/18 07:35 Dose: 100 mcg Lorazepam (Ativan) 0.5 mg NG Q8 [facility] Last Admin: 01/03/18 13:22 Dose: 0.5 mg Pantoprazole Sodium (Protonix Inj) 40 mg IVP BID [facility] Last Admin: 01/03/18 10:11 Dose: 40 mg Rosuvastatin Calcium (Crestor) 10 mg NG HS [facility] Last Admin: 01/02/18 21:40 Dose: 10 mg Saccharomyces Boulardii (Florastor) 250 mg NG BID [facility] Last Admin: 01/03/18 17:42 Dose: 250 mg Fluticasone/Salmeterol (Advair Diskus 250/50) 1 puff INH RQ12 [facility] Last Admin: 01/03/18 08:16 Dose: Not Given Vancomycin HCl (Vancocin (Oral Or Rectal Use)) 250 mg NG QID [facility] PRN Reason: Protocol Last Admin: 01/03/18 17:42 Dose: 250 mg Vitamin A (Vitamin A & D Oint Ud Foilpak) 1 ea EXT Q8 PRN PRN Reason: Dry SKIN Last Admin: 12/23/17 17:24 Dose: 1 ea - Labs Labs: 01/02/18 14:01 01/02/18 14:01 PT 14.5 SECONDS (9.7-12.2) H 12/28/17 06:11 INR 1.3 12/28/17 06:11 APTT 29 SECONDS (21-34) 12/28/17 06:11 Assessment and Plan (1) Pneumonia Assessment & Plan: ON IV MAXIPEME 1 G EVERY 24 HOURLY 12/22/17 FOR NOW CXR NOT SHOWING MUCH IMPROVEMENT ADD IV DOXYCYCLINE 100MG IV [id number] 01/04/18 cONTINUE iv fLAGYL 500 EVERY 8 HOURLY. F/U SPUTUM CULTURE/AND GRAM STAIN. ATYPICAL SEROLOGY. PRO-BMP PROCALCITONIN PULMONARY TOILET. CXR 01/02/18 NOTED RUL PATCHY NODULAR OPACITY B/L LL HAZY OPACITIES-B/L PL. EFFUSION/ATELECTASIS AND OR INFILTRATES L>RT. PT DNR/DNI NOTED. Status: Acute (2) C. difficile colitis Assessment & Plan: REPEAT STOOL c. DIFFICILE NEGATIVE. 12/25/17, 12/26/17 CONTINUE BY MOUTH VANCOMYCIN 250 MG 4 TIMES A DAY Status: Acute (3) Dehydration Status: Acute (4) Hypernatremia Status: Resolved (5) Atrial fibrillation with rapid ventricular response Status: Acute (6) Breast mass, left Status: Acute (7) Candiduria Assessment & Plan: ON IV DIFLUCAN 100MG IVPB Q 24HRLY - 12/29/17 X 2 DAYS MORE TILL 01/05/18 Status: Acute (8) GIB (gastrointestinal bleeding) Status: Acute
--- NOTE | 2018-01-03 21:16 | PN ---
DATE: 01/03/2018 FOLLOWUP SUBJECTIVE: The patient is oriented to place. She was able to eat today. She denies any chest pain. PHYSICAL EXAMINATION: VITAL SIGNS: Blood pressure 127/62, heart rate 76, temperature 97.5, respirations 20. HEENT: Normocephalic. CHEST: Diminished breath sounds over the bases. HEART: S1, S2 are regular. ABDOMEN: Soft. EXTREMITIES: No pedal edema. ASSESSMENT: 1. Multifocal atrial tachycardia. 2. Bilateral pneumonia. 3. Chronic obstructive lung disease. 4. Hypokalemia. 5. Enterococcus faecalis urinary tract infection. 6. Clostridium difficile colitis. RECOMMENDATIONS: Continue Ativan 0.5 mg every 8 hours, Cardizem 30 mg every 8 hours, Crestor 10 mg once a day, Diflucan 100 mg intravenously daily, Flagyl 500 mg intravenously every 8 hours, IV cefepime at 1 gm daily, Synthroid 100 mcg once a day, oral vancomycin 250 mg four times a day. Tru Vinson MD
[2018-01-04] MEDS: Albuterol-Ipratrop 3 mg / 0.5 (3 ml) UD INH SCH ×2 (01:41→07:38)
[2018-01-04] MEDS: metroNIDAZOLE IV 500 mg/100 ml 500 MG/100 ML BAG IVPB SCH ×3 (05:07→21:27)
[2018-01-04] MEDS: Levothyroxine 100 MCG TAB NG SCH (06:08)
[2018-01-04 07:23] LABS: WHITE BLOOD COUNT 7.7 K/uL (4.8-10.8)
[2018-01-04 07:35] LABS: B-TYPE NATRIURETIC PEPTIDE 436 pg/mL (0-900)
[2018-01-04] MEDS: Fluticasone-Salmeterol 250-50mcg Diskus INH SCH ×2 (07:37→19:44)
[2018-01-04 07:38] LABS: HEMOGLOBIN 11.7 g/dL (11.0-16.0); MEAN CELL VOLUME 88.3 fL (81.0-99.0); MEAN CORPUSCULAR HEMOGLOBIN 30.7 pg (27.0-31.0); MEAN CORPUSCULAR HGB CONC 34.8 g/dL (33.0-37.0); RBC 3.8 Mil/uL (3.80-5.20); RED CELL DISTRIBUTION WIDTH 15.9 % (11.5-14.5)
[2018-01-04 07:42] LABS: BLOOD UREA NITROGEN 8 mg/dL (7-17); CALCIUM 7.2 mg/dl (8.6-10.4); GFR AFRICAN-AMERICAN > 60; GFR NON-AFRICAN AMERICAN > 60
--- NOTE | 2018-01-04 08:49 | CP.PCM.PN ---
Subjective - Date & Time of Evaluation Date of Evaluation: 01/03/18 Time of Evaluation: 17:35 - Subjective Subjective: Patient was seen and examined this morning at bedside. Patient is awake and alert. Patient found receiving physical therapy. Patient is in no acute distress. Patient continuous to be off BiPAP. Patient's O2 saturation maintained at 100% on nasal cannula O2. Patient is afebrile. Patient has no acute complaints. Objective - Vital Signs/Intake and Output Vital Signs (last 24 hours): Temp Pulse Resp BP Pulse Ox 97.5 F L 85 20 103/68 100 01/03/18 23:13 01/03/18 23:47 01/03/18 23:13 01/03/18 23:13 01/03/18 23:13 Intake and Output: 01/04/18 01/04/18 06:59 18:59 Intake Total 350 200 Output Total 800 700 Balance -450 -500 - Medications Medications: Current Medications Albuterol/Ipratropium (Duoneb 3 Mg/0.5 Mg (3 Ml) Ud) 3 ml INH RQ6 [facility] Last Admin: 01/04/18 07:38 Dose: 3 ml Cholestyramine Resin (Questran) 4 gm PO QID [facility] Last Admin: 01/03/18 21:26 Dose: 4 gm Diltiazem HCl (Cardizem) 30 mg NG Q6H [facility] Last Admin: 01/04/18 06:09 Dose: 30 mg Cefepime HCl (Maxipime Iv 1 Gm Premix) 1 gm in 50 mls @ 100 mls/hr IVPB Q24H [facility] PRN Reason: Protocol Last Admin: 01/03/18 17:42 Dose: 100 mls/hr Metronidazole (Flagyl) 500 mg in 100 mls @ 100 mls/hr IVPB Q8 [facility] PRN Reason: Protocol Last Admin: 01/04/18 05:07 Dose: 100 mls/hr Fluconazole (Diflucan Iv 100 Mg/50 Ml Ns) 50 mls @ 50 mls/hr IVPB DAILY [facility] PRN Reason: Protocol Last Admin: 01/03/18 10:11 Dose: 50 mls/hr Doxycycline Hyclate 100 mg/ (Sodium Chloride) 100 mls @ 100 mls/hr IVPB Q12H [facility] PRN Reason: Protocol Levothyroxine Sodium (Synthroid) 100 mcg NG 0630 [facility] Last Admin: 01/04/18 06:08 Dose: 100 mcg Lorazepam (Ativan) 0.5 mg NG Q12 [facility] Last Admin: 01/03/18 21:52 Dose: Not Given Pantoprazole Sodium (Protonix Inj) 40 mg IVP BID [facility] Last Admin: 01/03/18 19:00 Dose: 40 mg Rosuvastatin Calcium (Crestor) 10 mg NG HS [facility] Last Admin: 01/03/18 21:26 Dose: 10 mg Saccharomyces Boulardii (Florastor) 250 mg NG BID [facility] Last Admin: 01/03/18 17:42 Dose: 250 mg Fluticasone/Salmeterol (Advair Diskus 250/50) 1 puff INH RQ12 [facility] Last Admin: 01/04/18 07:37 Dose: Not Given Vancomycin HCl (Vancocin (Oral Or Rectal Use)) 250 mg NG QID [facility] PRN Reason: Protocol Last Admin: 01/03/18 23:00 Dose: Not Given Vitamin A (Vitamin A & D Oint Ud Foilpak) 1 ea EXT Q8 PRN PRN Reason: Dry SKIN Last Admin: 12/23/17 17:24 Dose: 1 ea - Labs Labs: 01/04/18 07:05 01/04/18 07:05 PT 14.5 SECONDS (9.7-12.2) H 12/28/17 06:11 INR 1.3 12/28/17 06:11 APTT 29 SECONDS (21-34) 12/28/17 06:11 Assessment and Plan (1) C. difficile colitis Status: Acute (2) Dehydration Status: Acute (3) Septicemia Status: Acute (4) Anxiety Status: Acute (5) COPD (chronic obstructive pulmonary disease) Status: Acute (6) Depressed Status: Acute (7) Diarrhea Status: Acute (8) HTN (hypertension) Status: Acute
--- NOTE | 2018-01-04 08:50 | CP.PCM.PN ---
Subjective - Date & Time of Evaluation Date of Evaluation: 01/04/18 Time of Evaluation: 18:00 - Subjective Subjective: Patient was seen and examined , is awake alert, she is weak, not eating well, other then that she is improving Objective - Vital Signs/Intake and Output Vital Signs (last 24 hours): Temp Pulse Resp BP Pulse Ox 97.5 F L 85 20 103/68 100 01/03/18 23:13 01/03/18 23:47 01/03/18 23:13 01/03/18 23:13 01/03/18 23:13 Intake and Output: 01/04/18 01/04/18 06:59 18:59 Intake Total 350 200 Output Total 800 700 Balance -450 -500 - Medications Medications: Current Medications Albuterol/Ipratropium (Duoneb 3 Mg/0.5 Mg (3 Ml) Ud) 3 ml INH RQ6 [facility] Last Admin: 01/04/18 07:38 Dose: 3 ml Cholestyramine Resin (Questran) 4 gm PO QID [facility] Last Admin: 01/03/18 21:26 Dose: 4 gm Diltiazem HCl (Cardizem) 30 mg NG Q6H [facility] Last Admin: 01/04/18 06:09 Dose: 30 mg Cefepime HCl (Maxipime Iv 1 Gm Premix) 1 gm in 50 mls @ 100 mls/hr IVPB Q24H [facility] PRN Reason: Protocol Last Admin: 01/03/18 17:42 Dose: 100 mls/hr Metronidazole (Flagyl) 500 mg in 100 mls @ 100 mls/hr IVPB Q8 [facility] PRN Reason: Protocol Last Admin: 01/04/18 05:07 Dose: 100 mls/hr Fluconazole (Diflucan Iv 100 Mg/50 Ml Ns) 50 mls @ 50 mls/hr IVPB DAILY [facility] PRN Reason: Protocol Last Admin: 01/03/18 10:11 Dose: 50 mls/hr Doxycycline Hyclate 100 mg/ (Sodium Chloride) 100 mls @ 100 mls/hr IVPB Q12H [facility] PRN Reason: Protocol Levothyroxine Sodium (Synthroid) 100 mcg NG 0630 [facility] Last Admin: 01/04/18 06:08 Dose: 100 mcg Lorazepam (Ativan) 0.5 mg NG Q12 [facility] Last Admin: 01/03/18 21:52 Dose: Not Given Pantoprazole Sodium (Protonix Inj) 40 mg IVP BID [facility] Last Admin: 01/03/18 19:00 Dose: 40 mg Rosuvastatin Calcium (Crestor) 10 mg NG HS [facility] Last Admin: 01/03/18 21:26 Dose: 10 mg Saccharomyces Boulardii (Florastor) 250 mg NG BID [facility] Last Admin: 01/03/18 17:42 Dose: 250 mg Fluticasone/Salmeterol (Advair Diskus 250/50) 1 puff INH RQ12 [facility] Last Admin: 01/04/18 07:37 Dose: Not Given Vancomycin HCl (Vancocin (Oral Or Rectal Use)) 250 mg NG QID [facility] PRN Reason: Protocol Last Admin: 01/03/18 23:00 Dose: Not Given Vitamin A (Vitamin A & D Oint Ud Foilpak) 1 ea EXT Q8 PRN PRN Reason: Dry SKIN Last Admin: 12/23/17 17:24 Dose: 1 ea - Labs Labs: 01/04/18 07:05 01/04/18 07:05 PT 14.5 SECONDS (9.7-12.2) H 12/28/17 06:11 INR 1.3 12/28/17 06:11 APTT 29 SECONDS (21-34) 12/28/17 06:11 - Constitutional Appears: No Acute Distress, Chronically Ill - Head Exam Head Exam: ATRAUMATIC, NORMAL INSPECTION, NORMOCEPHALIC - Eye Exam Eye Exam: EOMI, Normal appearance, PERRL Pupil Exam: NORMAL ACCOMODATION, PERRL - ENT Exam ENT Exam: Mucous Membranes Moist, Normal Exam - Respiratory Exam Respiratory Exam: Decreased Breath Sounds, Rhonchi - Cardiovascular Exam Cardiovascular Exam: REGULAR RHYTHM, +S1, +S2. absent: Murmur - GI/Abdominal Exam GI & Abdominal Exam: Soft, Normal Bowel Sounds. absent: Tenderness - Rectal Exam Rectal Exam: Deferred Assessment and Plan (1) C. difficile colitis Status: Acute (2) Dehydration Status: Acute (3) Septicemia Status: Acute (4) Anxiety Status: Acute (5) COPD (chronic obstructive pulmonary disease) Status: Acute (6) Depressed Status: Acute (7) Diarrhea Status: Acute (8) HTN (hypertension) Status: Acute - Assessment and Plan (Free Text) Plan: monitor pt, encourage feeding, medical management
[2018-01-04] MEDS: Fluconazole IV 100mg/50 ml NS 50 ML IVPB SCH (09:38)
[2018-01-04] MEDS: Saccharomyces Boulardi 250 mg Cap NG SCH ×2 (09:39→17:43)
[2018-01-04] MEDS: Cholestyramine 4 gm/Pkt UD PO SCH ×4 (09:40→21:22)
[2018-01-04] MEDS: Vancomycin 125 MG/5 ML SOLN (ORAL/RECTAL) NG SCH ×4 (09:43→21:27)
[2018-01-04] MEDS: Magnesium Sulfate 1 gm in D5W 1 GM/100 ML BAG IVPB SCH ×2 (12:08→12:50)
--- NOTE | 2018-01-04 16:14 | CP.PCM.PN ---
Subjective - Date & Time of Evaluation Date of Evaluation: 01/04/18 Time of Evaluation: 09:20 - Subjective Subjective: Patient was seen and examined this morning at bedside. Patient is awake and alert. Patient reports that she is feeling better. Patient is in no acute distress. Patient continuous to be off BiPAP. Patient's O2 saturation is 98 % on nasal cannula O2. Patient is afebrile. Patient has no acute complaints. ROS: Constitutional: Negative for fever and chills. Cardiovascular: Negative chest pain, palpitations. Respiratory: Negative for shortness of breath or cough. Gastrointestinal: Negative for nausea, vomiting, diarrhea. Physical Exam HEENT: Atraumatic, normocephalic, mucuous membranes moist Repiratory: Clear to auscultation bilaterally. No wheezing or rhonchi. No use of accessory muscles. Cardiovascular: +S1/ S2, regular rate and rhythm GI: Normal bowel sounds in all 4 quadrants, no tenderness, no distention Extremities: No LE edema Neurological: Alert and awake Assessment: 82 year old female with PMHx of CHF, dementia, anxiety, COPD, and HTN. Patient' s exam consistent with COPDexacerbation. 1. Pneumonia Status: Acute - Cefepime HCl 1 gm in 50 mls @ 100 mls/ hr IVPB Q24H - Metronidazole 500 mg in 100 mls @ 100 mls/ hr IVPB - followup chest x-ray 2. COPD Exacerbation Status: Chronic - Albuterol/ Ipratropium 3 ml INH RQ6 - Continue BiPAP as needed Objective - Vital Signs/Intake and Output Vital Signs (last 24 hours): Temp Pulse Resp BP Pulse Ox 97.9 F 91 H 20 110/73 100 01/04/18 15:57 01/04/18 15:57 01/04/18 15:57 01/04/18 15:57 01/04/18 15:57 Intake and Output: 01/04/18 01/04/18 06:59 18:59 Intake Total 350 1010 Output Total 800 1400 Balance -450 -390 - Medications Medications: Current Medications Cholestyramine Resin (Questran) 4 gm PO QID [facility] Last Admin: 01/04/18 13:49 Dose: 4 gm Diltiazem HCl (Cardizem) 30 mg NG Q6H [facility] Last Admin: 01/04/18 12:08 Dose: 30 mg Cefepime HCl (Maxipime Iv 1 Gm Premix) 1 gm in 50 mls @ 100 mls/hr IVPB Q24H [facility] PRN Reason: Protocol Last Admin: 01/03/18 17:42 Dose: 100 mls/hr Metronidazole (Flagyl) 500 mg in 100 mls @ 100 mls/hr IVPB Q8 [facility] PRN Reason: Protocol Last Admin: 01/04/18 13:49 Dose: 100 mls/hr Fluconazole (Diflucan Iv 100 Mg/50 Ml Ns) 50 mls @ 50 mls/hr IVPB DAILY [facility] PRN Reason: Protocol Last Admin: 01/04/18 09:38 Dose: 50 mls/hr Doxycycline Hyclate 100 mg/ (Sodium Chloride) 100 mls @ 100 mls/hr IVPB Q12H [facility] PRN Reason: Protocol Levothyroxine Sodium (Synthroid) 100 mcg NG 0630 [facility] Last Admin: 01/04/18 06:08 Dose: 100 mcg Lorazepam (Ativan) 0.5 mg NG Q12 PRN PRN Reason: Agitation Pantoprazole Sodium (Protonix Inj) 40 mg IVP BID [facility] Last Admin: 01/04/18 09:40 Dose: 40 mg Rosuvastatin Calcium (Crestor) 10 mg NG HS [facility] Last Admin: 01/03/18 21:26 Dose: 10 mg Saccharomyces Boulardii (Florastor) 250 mg NG BID [facility] Last Admin: 01/04/18 09:39 Dose: 250 mg Fluticasone/Salmeterol (Advair Diskus 250/50) 1 puff INH RQ12 [facility] Last Admin: 01/04/18 07:37 Dose: Not Given Vancomycin HCl (Vancocin (Oral Or Rectal Use)) 250 mg NG QID [facility] PRN Reason: Protocol Last Admin: 01/04/18 13:49 Dose: 250 mg Vitamin A (Vitamin A & D Oint Ud Foilpak) 1 ea EXT Q8 PRN PRN Reason: Dry SKIN Last Admin: 12/23/17 17:24 Dose: 1 ea - Labs Labs: 01/04/18 07:05 01/04/18 07:05 PT 14.5 SECONDS (9.7-12.2) H 12/28/17 06:11 INR 1.3 12/28/17 06:11 APTT 29 SECONDS (21-34) 12/28/17 06:11 Assessment and Plan (1) C. difficile colitis Status: Acute (2) COPD exacerbation Status: Acute (3) Dehydration Status: Acute
--- NOTE | 2018-01-04 16:20 | CP.PCM.PN ---
Subjective - Date & Time of Evaluation Date of Evaluation: 01/04/18 Time of Evaluation: 16:20 - Subjective Subjective: CHIEF COMPLAINTS TODAY : AFEBRILE. NO NEW COMPLAINTS OFF BIPAP. lying comfortably ROS. HEENT : N. Resp : NO SOB,NO wheezing ,pleuritic CP ,or hemoptysis Cardio : No anginal CP, PND, orthopnea, palpitation GI : No abd.pain, n/v ,diarrhea or GI bleeding . 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 Musculoskel : No joint swelling , Derm : No rash Psych : Normal affect. Ext : No swelling ,calf pain PE. Pt. is awake ,PRESENTLY NOT IN ACUTE DISTRESS V.S As noted in the chart Head ,ear nose,throat and eyes : Normal. Neck : Supple with normal carotids. Lungs: DIMINISHED BREATH SOUNDS AT THE BASES Heart : S1 & S2 IRREGULAR.. Abd : Soft non tender with normal bowel sounds Neuro : Moves all ext. with no localized deficit. Ext : +ve b/l EDEMA 1+ with intact pulses.Non tender calves Derm : No rashes or decubitus ulcer. LABS/RADIOLOGY: REVIEWED WBC 7.7 PLT 129 LOW CREAT 0.5/BUN 8 STOOL FOR C. DIFFICILE NEGATIVE 12/26/17 REPEAT UA -VE 01/02/18 -CULTURE - NO GROWTH. BLOOD CULTURE 12/22/17 -VE 3 DAYS VIA CC Objective - Vital Signs/Intake and Output Vital Signs (last 24 hours): Temp Pulse Resp BP Pulse Ox 97.9 F 91 H 20 110/73 100 01/04/18 15:57 01/04/18 15:57 01/04/18 15:57 01/04/18 15:57 01/04/18 15:57 Intake and Output: 01/04/18 01/04/18 06:59 18:59 Intake Total 350 1010 Output Total 800 1400 Balance -450 -390 - Medications Medications: Current Medications Cholestyramine Resin (Questran) 4 gm PO QID [facility] Last Admin: 01/04/18 13:49 Dose: 4 gm Diltiazem HCl (Cardizem) 30 mg NG Q6H [facility] Last Admin: 01/04/18 12:08 Dose: 30 mg Cefepime HCl (Maxipime Iv 1 Gm Premix) 1 gm in 50 mls @ 100 mls/hr IVPB Q24H [facility] PRN Reason: Protocol Last Admin: 01/03/18 17:42 Dose: 100 mls/hr Metronidazole (Flagyl) 500 mg in 100 mls @ 100 mls/hr IVPB Q8 [facility] PRN Reason: Protocol Last Admin: 01/04/18 13:49 Dose: 100 mls/hr Fluconazole (Diflucan Iv 100 Mg/50 Ml Ns) 50 mls @ 50 mls/hr IVPB DAILY [facility] PRN Reason: Protocol Last Admin: 01/04/18 09:38 Dose: 50 mls/hr Doxycycline Hyclate 100 mg/ (Sodium Chloride) 100 mls @ 100 mls/hr IVPB Q12H [facility] PRN Reason: Protocol Levothyroxine Sodium (Synthroid) 100 mcg NG 0630 [facility] Last Admin: 01/04/18 06:08 Dose: 100 mcg Lorazepam (Ativan) 0.5 mg NG Q12 PRN PRN Reason: Agitation Pantoprazole Sodium (Protonix Inj) 40 mg IVP BID [facility] Last Admin: 01/04/18 09:40 Dose: 40 mg Rosuvastatin Calcium (Crestor) 10 mg NG HS [facility] Last Admin: 01/03/18 21:26 Dose: 10 mg Saccharomyces Boulardii (Florastor) 250 mg NG BID [facility] Last Admin: 01/04/18 09:39 Dose: 250 mg Fluticasone/Salmeterol (Advair Diskus 250/50) 1 puff INH RQ12 [facility] Last Admin: 01/04/18 07:37 Dose: Not Given Vancomycin HCl (Vancocin (Oral Or Rectal Use)) 250 mg NG QID [facility] PRN Reason: Protocol Last Admin: 01/04/18 13:49 Dose: 250 mg Vitamin A (Vitamin A & D Oint Ud Foilpak) 1 ea EXT Q8 PRN PRN Reason: Dry SKIN Last Admin: 12/23/17 17:24 Dose: 1 ea - Labs Labs: 01/04/18 07:05 01/04/18 07:05 PT 14.5 SECONDS (9.7-12.2) H 12/28/17 06:11 INR 1.3 12/28/17 06:11 APTT 29 SECONDS (21-34) 12/28/17 06:11 Assessment and Plan (1) Pneumonia Assessment & Plan: ON IV MAXIPEME 1 G EVERY 24 HOURLY 12/22/17 FOR NOW CXR NOT SHOWING MUCH IMPROVEMENT ADD IV DOXYCYCLINE 100MG IV [id number] 01/04/18 D/C iv fLAGYL 500 EVERY 8 HOURLY.IN VIEW OF DECREASING PLATELETS F/U SPUTUM CULTURE/AND GRAM STAIN. PULMONARY TOILET. CXR 01/02/18 NOTED RUL PATCHY NODULAR OPACITY B/L LL HAZY OPACITIES-B/L PL. EFFUSION/ATELECTASIS AND OR INFILTRATES L>RT. F/U CXR TO CLEARING PT DNR/DNI NOTED. Status: Acute (2) C. difficile colitis Assessment & Plan: REPEAT C.DIFFICILE TOXIN STOOLS -VE ON PO VANCMYCIN 250MG POQID DC IV FLAGYL 01/04/19 Status: Acute (3) Dehydration Status: Acute (4) Hypernatremia Status: Resolved (5) Atrial fibrillation with rapid ventricular response Status: Acute (6) Breast mass, left Status: Acute (7) Candiduria Assessment & Plan: ON IV DIFLUCAN 100MG IV [id number] - LAST DOSE ON 01/05/18. Status: Acute (8) GIB (gastrointestinal bleeding) Status: Acute
--- NOTE | 2018-01-04 16:51 | PN ---
DATE: 01/04/2018 SUBJECTIVE: The patient is oriented to place. She knows that she is in [facility]. She denies any chest pain. PHYSICAL EXAMINATION: VITAL SIGNS: Blood pressure 96/69, heart rate 96, temperature 97.7, and respirations 20. HEENT: Normocephalic. CHEST: Bilateral rhonchi. HEART: S1, S2 are regular. ABDOMEN: Soft. EXTREMITIES: No edema. LABORATORY DATA: Today's hemoglobin and hematocrit 11.7 and 33.5, white count 7.7, platelet count is slightly below normal at 129,000. SMA-7: Sodium 132, potassium 3.5, chloride 104, CO2 of 24, glucose 47, BUN 8, creatinine 0.5, and magnesium is 1.4. ASSESSMENT: 1. Periods of multifocal atrial tachycardia. 2. Chronic obstructive lung disease. 3. Hypokalemia and hypomagnesemia. 4. Hypothyroidism. 5. Exacerbation of chronic obstructive lung disease. RECOMMENDATIONS: Continue Synthroid at 100 mcg once a day, IV Maxipime at 1 gram every 24 hours, IV Flagyl 500 mg every 8 hours, fluconazole 100 mg intravenously daily, Cardizem 30 mg every 6 hours. The patient is already receiving 2 grams of magnesium replacement intravenously as well as 20 mEq of potassium intravenous replacement. Tru Vinson MD
[2018-01-04] MEDS: Cefepime IV 1 gm in Dextrose 1 GM/50 ML BAG IVPB SCH (17:44)
[2018-01-05] MEDS: Levothyroxine 100 MCG TAB NG SCH (06:14)
[2018-01-05] MEDS: Fluconazole IV 100mg/50 ml NS 50 ML IVPB SCH (09:50)
[2018-01-05] MEDS: Vancomycin 125 MG/5 ML SOLN (ORAL/RECTAL) NG SCH ×5 (09:51→22:07)
[2018-01-05] MEDS: Cholestyramine 4 gm/Pkt UD PO SCH ×5 (09:51→22:07)
[2018-01-05] MEDS: Saccharomyces Boulardi 250 mg Cap NG SCH ×3 (09:51→17:28)
[2018-01-05] MEDS: Fluticasone-Salmeterol 250-50mcg Diskus INH SCH (10:11)
[2018-01-05 11:31] LABS: BASO # 0.1 K/uL (0.0-0.2); BASO % 1.2 % (0.0-2.0); EOS # 0.1 K/uL (0.0-0.7); EOS % 0.7 % (0.0-4.0); HEMOGLOBIN 10.8 g/dL (11.0-16.0); LYMPH # 0.6 K/uL (1.0-4.3); LYMPH % 8.3 % (20.0-40.0); MEAN CELL VOLUME 89.4 fL (81.0-99.0); MEAN CORPUSCULAR HEMOGLOBIN 30.5 pg (27.0-31.0); MEAN CORPUSCULAR HGB CONC 34.1 g/dL (33.0-37.0); MEAN PLATELET VOLUME 8.2 fL (7.2-11.7); MONO # 0.4 K/uL (0.0-0.8); MONO % 5.8 % (0.0-10.0); NEUT # 6.2 K/uL (1.8-7.0); NRBC % 0.1 % (0.0-2.0); PLATELET COUNT 128 K/uL (130-400); RBC 3.54 Mil/uL (3.80-5.20); RED CELL DISTRIBUTION WIDTH 15.8 % (11.5-14.5); WHITE BLOOD COUNT 7.3 K/uL (4.8-10.8)
[2018-01-05 11:52] LABS: ALBUMIN 1.8 g/dL (3.5-5.0); ALT/SGPT 36 U/L (9-52); AST/SGOT 18 U/L (14-36); BLOOD UREA NITROGEN 6 mg/dL (7-17); CALCIUM 7.3 mg/dl (8.6-10.4); GFR AFRICAN-AMERICAN > 60; GFR NON-AFRICAN AMERICAN > 60
[2018-01-05 11:56] LABS: EOSINOPHIL 1 % (0-4); LYMPHOCYTE 3 % (20-40); MONOCYTE 3 % (0-10); NEUTROPHIL 93 % (50-75); TOTAL CELLS COUNTED 100
[2018-01-05 11:57] LABS: ANISOCYTOSIS SLIGHT; PLATELET ESTIMATE SLIGHTLY DECREASED (NORMAL)
[2018-01-05 11:58] LABS: HYPOCHROMIC SLIGHT; POLYCHROMIC SLIGHT
--- NOTE | 2018-01-05 13:00 | CP.PCM.PN ---
Subjective - Date & Time of Evaluation Date of Evaluation: 01/05/18 Time of Evaluation: 08:20 - Subjective Subjective: Patient was seen and examined this morning at bedside. Patient is awake and alert. Patient had no acute episodes overnight. Patient has improvement in her breathing. Patient found a little short of breath recommended patient be placed back on BiPAP. Patient is afebrile. Patient has no acute complaints. ROS: Constitutional: Negative for fever and chills. Cardiovascular: Negative chest pain, palpitations. Respiratory: Negative for shortness of breath or cough. Gastrointestinal: Negative for nausea, vomiting, diarrhea. Physical Exam HEENT: Atraumatic, normocephalic, mucuous membranes moist Repiratory: Clear to auscultation bilaterally. No wheezing or rhonchi. No use of accessory muscles. Cardiovascular: +S1/ S2, regular rate and rhythm GI: Normal bowel sounds in all 4 quadrants, no tenderness, no distention Extremities: No LE edema Neurological: Alert and awake Assessment: 82 year old female with PMHx of CHF, dementia, anxiety, COPD, and HTN. Patient' s exam consistent with COPDexacerbation. 1. Pneumonia Status: Acute - Cefepime HCl 1 gm in 50 mls @ 100 mls/ hr IVPB Q24H - Metronidazole 500 mg in 100 mls @ 100 mls/ hr IVPB Q8 2. COPD Exacerbation Status: Chronic - Albuterol/ Ipratropium 3 ml INH RQ6 - Continue BiPAP as needed Objective - Vital Signs/Intake and Output Vital Signs (last 24 hours): Temp Pulse Resp BP Pulse Ox 98.7 F 53 L 20 105/71 100 01/05/18 09:00 01/05/18 10:09 01/05/18 09:00 01/05/18 09:00 01/05/18 09:00 Intake and Output: 01/05/18 01/05/18 06:59 18:59 Intake Total 100 Output Total 450 Balance -350 - Medications Medications: Current Medications Cholestyramine Resin (Questran) 4 gm PO QID [facility] Last Admin: 01/05/18 10:30 Dose: Not Given Diltiazem HCl (Cardizem) 30 mg NG Q6H [facility] Last Admin: 01/05/18 11:38 Dose: 30 mg Cefepime HCl (Maxipime Iv 1 Gm Premix) 1 gm in 50 mls @ 100 mls/hr IVPB Q24H [facility] PRN Reason: Protocol Last Admin: 01/04/18 17:44 Dose: 100 mls/hr Fluconazole (Diflucan Iv 100 Mg/50 Ml Ns) 50 mls @ 50 mls/hr IVPB DAILY [facility] PRN Reason: Protocol Last Admin: 01/05/18 09:50 Dose: 50 mls/hr Doxycycline Hyclate 100 mg/ (Sodium Chloride) 100 mls @ 100 mls/hr IVPB Q12H [facility] PRN Reason: Protocol Last Admin: 01/05/18 08:34 Dose: 100 mls/hr Levothyroxine Sodium (Synthroid) 100 mcg NG 0630 [facility] Last Admin: 01/05/18 06:14 Dose: 100 mcg Lorazepam (Ativan) 0.5 mg NG Q12 PRN PRN Reason: Agitation Pantoprazole Sodium (Protonix Inj) 40 mg IVP BID [facility] Last Admin: 01/05/18 09:51 Dose: 40 mg Rosuvastatin Calcium (Crestor) 10 mg NG HS [facility] Last Admin: 01/04/18 21:21 Dose: 10 mg Saccharomyces Boulardii (Florastor) 250 mg NG BID [facility] Last Admin: 01/05/18 10:29 Dose: Not Given Fluticasone/Salmeterol (Advair Diskus 250/50) 1 puff INH RQ12 [facility] Last Admin: 01/05/18 10:11 Dose: Not Given Vancomycin HCl (Vancocin (Oral Or Rectal Use)) 250 mg NG QID [facility] PRN Reason: Protocol Last Admin: 01/05/18 10:30 Dose: Not Given Vitamin A (Vitamin A & D Oint Ud Foilpak) 1 ea EXT Q8 PRN PRN Reason: Dry SKIN Last Admin: 12/23/17 17:24 Dose: 1 ea - Labs Labs: 01/05/18 11:22 01/05/18 11:22 PT 14.5 SECONDS (9.7-12.2) H 12/28/17 06:11 INR 1.3 12/28/17 06:11 APTT 29 SECONDS (21-34) 12/28/17 06:11 Assessment and Plan (1) C. difficile colitis Status: Acute (2) COPD exacerbation Status: Acute (3) Dehydration Status: Acute
--- NOTE | 2018-01-05 13:20 | CP.PCM.PN ---
Subjective - Date & Time of Evaluation Date of Evaluation: 01/05/18 Time of Evaluation: 08:15 - Subjective Subjective: Pt seen & examined today,awake alert, not feeding well, afebrile, improving, monitor pt, encourage feeding, medical management Objective - Vital Signs/Intake and Output Vital Signs (last 24 hours): Temp Pulse Resp BP Pulse Ox 98.7 F 53 L 20 105/71 100 01/05/18 09:00 01/05/18 10:09 01/05/18 09:00 01/05/18 09:00 01/05/18 09:00 Intake and Output: 01/05/18 01/05/18 06:59 18:59 Intake Total 100 Output Total 450 Balance -350 - Medications Medications: Current Medications Cholestyramine Resin (Questran) 4 gm PO QID [facility] Last Admin: 01/05/18 10:30 Dose: Not Given Diltiazem HCl (Cardizem) 30 mg NG Q6H [facility] Last Admin: 01/05/18 11:38 Dose: 30 mg Cefepime HCl (Maxipime Iv 1 Gm Premix) 1 gm in 50 mls @ 100 mls/hr IVPB Q24H [facility] PRN Reason: Protocol Last Admin: 01/04/18 17:44 Dose: 100 mls/hr Fluconazole (Diflucan Iv 100 Mg/50 Ml Ns) 50 mls @ 50 mls/hr IVPB DAILY [facility] PRN Reason: Protocol Last Admin: 01/05/18 09:50 Dose: 50 mls/hr Doxycycline Hyclate 100 mg/ (Sodium Chloride) 100 mls @ 100 mls/hr IVPB Q12H [facility] PRN Reason: Protocol Last Admin: 01/05/18 08:34 Dose: 100 mls/hr Levothyroxine Sodium (Synthroid) 100 mcg NG 0630 [facility] Last Admin: 01/05/18 06:14 Dose: 100 mcg Lorazepam (Ativan) 0.5 mg NG Q12 PRN PRN Reason: Agitation Pantoprazole Sodium (Protonix Inj) 40 mg IVP BID [facility] Last Admin: 01/05/18 09:51 Dose: 40 mg Rosuvastatin Calcium (Crestor) 10 mg NG HS [facility] Last Admin: 01/04/18 21:21 Dose: 10 mg Saccharomyces Boulardii (Florastor) 250 mg NG BID [facility] Last Admin: 01/05/18 10:29 Dose: Not Given Fluticasone/Salmeterol (Advair Diskus 250/50) 1 puff INH RQ12 [facility] Last Admin: 01/05/18 10:11 Dose: Not Given Vancomycin HCl (Vancocin (Oral Or Rectal Use)) 250 mg NG QID [facility] PRN Reason: Protocol Last Admin: 01/05/18 10:30 Dose: Not Given Vitamin A (Vitamin A & D Oint Ud Foilpak) 1 ea EXT Q8 PRN PRN Reason: Dry SKIN Last Admin: 12/23/17 17:24 Dose: 1 ea - Labs Labs: 01/05/18 11:22 01/05/18 11:22 PT 14.5 SECONDS (9.7-12.2) H 12/28/17 06:11 INR 1.3 12/28/17 06:11 APTT 29 SECONDS (21-34) 12/28/17 06:11 Assessment and Plan (1) C. difficile colitis Status: Acute (2) Dehydration Status: Acute (3) Septicemia Status: Acute (4) Anxiety Status: Acute (5) COPD (chronic obstructive pulmonary disease) Status: Acute (6) Depressed Status: Acute (7) Diarrhea Status: Acute (8) HTN (hypertension) Status: Acute
--- NOTE | 2018-01-05 14:56 | PN ---
DATE: 01/05/2018 LOCATION: 371, bed A. SUBJECTIVE: This is an 82-year-old female seen early in rounds today after I was called by the staff that the patient had intermittent period of rectal bleeding with some blood clots. The patient is still having respiratory distress and on BiPAP. The patient is in the status DNR and DNI, and is stable clinically for any aggressive GI procedure in the meantime. Most recent lab result showed hemoglobin as normal, but low hematocrit of 33.5 with thrombocytopenia of 129, potassium 3.5, low magnesium and calcium with period of hypoglycemia. PHYSICAL EXAMINATION; GENERAL: An 82-year-old female. VITAL SIGNS: Afebrile with pulse of 84, respiratory rate 20 to 22, blood pressure 110/70. HEENT: Showed pale, dry oral mucous membrane. Nonicteric sclerae. LUNGS: Scattered bilateral crepitation. Decreased air entry at bases. HEART: Positive S1 and S2. ABDOMEN: With mild generalized tenderness. No mass or organomegaly. No rebound tenderness or guarding. EXTREMITIES: Without significant clubbing or cyanosis, but lower extremity edematous changes, mild with evidence of muscle wasting syndrome. It has to be mentioned that during my examination, the patient was at that time on nasal cannula with 2 L per minute oxygen flow rate. IMPRESSION: 1. Gastrointestinal blood loss, most likely lower. 2. Peptic ulcer disease. 3. Anemia, most likely secondary to above. 4. To rule out lower occult gastrointestinal malignancy. 5. Electrolyte imbalance. 6. Respiratory insufficiency with . 7. Known history of chronic obstructive pulmonary disease, hypertension, severe anxiety syndrome. 8. 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 SUGGESTIONS: 1. Agree with your plan. 2. Bleeding scan. 3. Due to the patient's poor clinical status, no aggressive gastrointestinal workup to be performed in the meantime until the patient is more stable clinically, discussed with the anesthesia staff and the primary MD before. I will follow up closely with you. Sarah Sanders MD
--- NOTE | 2018-01-05 17:05 | RAD ---
Date of service: 01/05/2018 PROCEDURE: CHEST RADIOGRAPH, 1 VIEW HISTORY: F/U COMPARISON: 01/02/2018 FINDINGS: LUNGS: Clear. PLEURA: Bilateral pleural effusion, small to moderate. No pneumothorax. CARDIOVASCULAR: Normal heart size. Right PICC catheter terminates just above the cavoatrial junction in the superior vena cava. OSSEOUS STRUCTURES: No significant abnormalities. VISUALIZED UPPER ABDOMEN: Normal. OTHER FINDINGS: None. IMPRESSION: Bilateral pleural effusion. Right PICC catheter terminates just above the cavoatrial junction.
[2018-01-05] MEDS: Cefepime IV 1 gm in Dextrose 1 GM/50 ML BAG IVPB SCH (17:28)
--- NOTE | 2018-01-05 20:15 | PN ---
DATE: 01/05/2018 SUBJECTIVE: The patient is oriented to place. She denies any chest pain or shortness of breath. The patient's [id number] is at the bedside. PHYSICAL EXAMINATION: VITAL SIGNS: Blood pressure 105/71, heart rate 87, temperature 98.7, and respirations 20. The most recent heart rate is 53. HEENT: Normocephalic. CHEST: Bilateral rhonchi. HEART: S1 and S2 regular. ABDOMEN: Soft. EXTREMITIES: No edema. LABORATORY DATA: Hemoglobin and hematocrit 10.8 and 31.7, white count 7.3, and platelet count 128,000. SMA-7: Sodium 131, potassium 3.8. chloride 104, CO2 of 25, glucose 64, BUN 6, creatinine 0.5. ASSESSMENT: 1. Multifocal atrial tachycardia. 2. Hyponatremia. 3. Improved hypokalemia. 4. Hypomagnesemia. 5. Chronic obstructive lung disease. 6. Borderline troponin elevation upon presentation. 7. Clostridium difficile colitis. 8. Enterococcus fecalis urinary tract infection. RECOMMENDATIONS: Continue Cardizem at 30 mg every 6 hours, Crestor at 10 mg once a day, Diflucan 100 mg intravenously daily, doxycycline 100 mg intravenously every 12 hours, Maxipime at 1 gm intravenously daily, Synthroid 100 mcg once a day, vancomycin 250 mg orally 4 time daily. Tru Vinson MD
--- NOTE | 2018-01-05 22:14 | CP.PCM.PN ---
Subjective - Date & Time of Evaluation Date of Evaluation: 01/05/18 Time of Evaluation: 22:14 - Subjective Subjective: CHIEF COMPLAINTS TODAY : AFEBRILE. AWAKE, RESPONSIVE APPEARS COMFORTABLE LYING FLAT ROS. HEENT : N. Resp : NO SOB,NO wheezing ,pleuritic CP ,or hemoptysis Cardio : No anginal CP, PND, orthopnea, palpitation GI : No abd.pain, n/v ,diarrhea or GI bleeding . 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 Musculoskel : No joint swelling , Derm : No rash Psych : Normal affect. Ext : No swelling ,calf pain PE. Pt. is awake ,PRESENTLY NOT IN ACUTE DISTRESS V.S As noted in the chart Head ,ear nose,throat and eyes : Normal. Neck : Supple with normal carotids. Lungs: DIMINISHED BREATH SOUNDS AT THE BASES Heart : S1 & S2 IRREGULAR.. Abd : Soft non tender with normal bowel sounds Neuro : Moves all ext. with no localized deficit. Ext : +ve b/l EDEMA 1+ with intact pulses.Non tender calves Derm : No rashes or decubitus ulcer. LABS/RADIOLOGY: REVIEWED STOOL FOR C. DIFFICILE NEGATIVE 12/26/17 REPEAT UA -VE 01/02/18 -CULTURE - NO GROWTH. BLOOD CULTURE 12/22/17 -VE 3 DAYS VIA CC Objective - Vital Signs/Intake and Output Vital Signs (last 24 hours): Temp Pulse Resp BP Pulse Ox 97.5 F L 109 H 20 90/65 L 100 01/05/18 16:40 01/05/18 16:40 01/05/18 16:40 01/05/18 16:40 01/05/18 16:40 Intake and Output: 01/05/18 01/06/18 18:59 06:59 Intake Total 400 Output Total 250 Balance 150 - Medications Medications: Current Medications Cholestyramine Resin (Questran) 4 gm PO QID [facility] Last Admin: 01/05/18 22:07 Dose: Not Given Diltiazem HCl (Cardizem) 30 mg NG Q6H [facility] Last Admin: 01/05/18 17:27 Dose: Not Given Cefepime HCl (Maxipime Iv 1 Gm Premix) 1 gm in 50 mls @ 100 mls/hr IVPB Q24H [facility] PRN Reason: Protocol Last Admin: 01/05/18 17:28 Dose: 100 mls/hr Fluconazole (Diflucan Iv 100 Mg/50 Ml Ns) 50 mls @ 50 mls/hr IVPB DAILY [facility] PRN Reason: Protocol Last Admin: 01/05/18 09:50 Dose: 50 mls/hr Doxycycline Hyclate 100 mg/ (Sodium Chloride) 100 mls @ 100 mls/hr IVPB Q12H [facility] PRN Reason: Protocol Last Admin: 01/05/18 20:57 Dose: 100 mls/hr Levothyroxine Sodium (Synthroid) 100 mcg NG 0630 [facility] Last Admin: 01/05/18 06:14 Dose: 100 mcg Lorazepam (Ativan) 0.5 mg NG Q12 PRN PRN Reason: Agitation Pantoprazole Sodium (Protonix Inj) 40 mg IVP BID [facility] Last Admin: 01/05/18 17:29 Dose: 40 mg Rosuvastatin Calcium (Crestor) 10 mg NG HS [facility] Last Admin: 01/04/18 21:21 Dose: 10 mg Saccharomyces Boulardii (Florastor) 250 mg NG BID [facility] Last Admin: 01/05/18 17:28 Dose: 250 mg Fluticasone/Salmeterol (Advair Diskus 250/50) 1 puff INH RQ12 [facility] Last Admin: 01/05/18 10:11 Dose: Not Given Vancomycin HCl (Vancocin (Oral Or Rectal Use)) 250 mg NG QID [facility] PRN Reason: Protocol Last Admin: 01/05/18 22:07 Dose: 250 mg Vitamin A (Vitamin A & D Oint Ud Foilpak) 1 ea EXT Q8 PRN PRN Reason: Dry SKIN Last Admin: 12/23/17 17:24 Dose: 1 ea - Labs Labs: 01/05/18 11:22 01/05/18 11:22 PT 14.5 SECONDS (9.7-12.2) H 12/28/17 06:11 INR 1.3 12/28/17 06:11 APTT 29 SECONDS (21-34) 12/28/17 06:11 Assessment and Plan (1) Pneumonia Assessment & Plan: ON IV MAXIPEME 1 G EVERY 24 HOURLY 12/22/17 FOR NOW CXR NOT SHOWING MUCH IMPROVEMENT ADD IV DOXYCYCLINE 100MG IV [id number] 01/04/18 D/C iv fLAGYL 500 EVERY 8 HOURLY.IN VIEW OF DECREASING PLATELETS F/U SPUTUM CULTURE/AND GRAM STAIN. PULMONARY TOILET. CXR 01/02/18 NOTED RUL PATCHY NODULAR OPACITY B/L LL HAZY OPACITIES-B/L PL. EFFUSION/ATELECTASIS AND OR INFILTRATES L>RT. F/U CXR TO CLEARING PT DNR/DNI NOTED. Status: Acute (2) C. difficile colitis Assessment & Plan: REPEAT C.DIFFICILE TOXIN STOOLS -VE ON PO VANCMYCIN 250MG POQID OFF IV FLAGYL 01/04/19 Status: Acute (3) Dehydration Status: Acute (4) Hypernatremia Status: Resolved (5) Atrial fibrillation with rapid ventricular response Status: Acute (6) Breast mass, left Status: Acute (7) Candiduria Assessment & Plan: ON IV DIFLUCAN 100MG IV [id number] - LAST DOSE ON 01/05/18. REPEAT URINE CULTURES NEGATIVE GROWTH. Status: Acute (8) GIB (gastrointestinal bleeding) Status: Acute
[2018-01-06] MEDS: Levothyroxine 100 MCG TAB NG SCH (06:39)
[2018-01-06] MEDS: Fluticasone-Salmeterol 250-50mcg Diskus INH SCH ×2 (08:27→20:26)
--- NOTE | 2018-01-06 08:32 | PN ---
DATE: 01/06/2018 LOCATION: 371, BED A. HISTORY OF PRESENT ILLNESS: This is an 82-year-old female seen and examined in rounds early this morning due to reported episodes of rectal bleeding associated with rectal clots per rectum, through the recently inserted Flexi-Seal. The patient is refusing any n.p.o. intake and the EG tube is still in place, still on BiPAP due to respiratory insufficiency. The entire chart is reviewed including but not limited to the most recent lab and radiology study results, current and the previous medication list, current and the previous medical events. The patient is still in a status of DNR and DNI with low hemoglobin and hematocrit with thrombocytopenia, low sodium, low BUN and creatinine with low calcium with period of hypoglycemia. The patient has very low albumin of 1.8 with total protein 3.6. Most recently chest x-ray done yesterday, official report is seen indicative of bilateral pleural effusion. PHYSICAL EXAMINATION: GENERAL: An 82-year-old female. VITAL SIGNS: Afebrile with pulse of 76, respiratory rate 20 to 24, blood pressure 102/68. HEENT: Showed pale dry oral mucoid membrane. Nonicteric sclerae. LUNGS: Few scattered crepitation. Decreased air entry at bases. HEART: Positive S1 and S2. ABDOMEN: Soft. Bowel sounds are present slight distention. No mass or organomegaly. No rebound tenderness or guarding. RECTAL: Flexi-Seal is in place with trace of fresh and old blood. EXTREMITIES: Evidence of muscle wasting syndrome bilaterally in the lower extremities with mild edematous changes. No clubbing or cyanosis. Peripheral pulses are decreased at bases. NEUROLOGIC: No new focal neurological deficits, sensory, or motor. IMPRESSION: 1. Gastrointestinal bleeding, most likely lower. 2. Bilateral pleural effusion with respiratory insufficiency. 3. Anemia secondary to above. 4. Electrolyte imbalance. 5. Malnutrition with severe hypoalbuminemia, hypoproteinemia. 6. Known history of chronic obstructive pulmonary disease, hypertension, and anxiety syndrome. Recently diagnosed pseudomembranous colitis with episodes of bloody diarrhea. SUGGESTIONS: 1. Continue current management. 2. Vancomycin p.o. through the NG tube. 3. Flagyl IV. No aggressive GI workup as per the admitting medical team. In the meantime due to the patient's poor clinical status, further recommendation to follow and repeat PT and PTT as well as stool for C. diff to be ordered. Sarah Sanders MD
[2018-01-06] MEDS: Cholestyramine 4 gm/Pkt UD PO SCH ×4 (09:52→22:51)
[2018-01-06] MEDS: Saccharomyces Boulardi 250 mg Cap NG SCH ×2 (09:52→17:56)
[2018-01-06] MEDS: Vancomycin 125 MG/5 ML SOLN (ORAL/RECTAL) NG SCH ×4 (09:52→22:51)
[2018-01-06] MEDS: Fluconazole IV 100mg/50 ml NS 50 ML IVPB SCH (10:12)
[2018-01-06] MEDS: Cefepime IV 1 gm in Dextrose 1 GM/50 ML BAG IVPB SCH (17:56)
--- NOTE | 2018-01-06 18:11 | PN ---
DATE: 01/06/2018 SUBJECTIVE: The patient is mildly short of breath. She denies any chest pain and she is oriented to place. Rectal tube was removed. PHYSICAL EXAMINATION: VITAL SIGNS: Blood pressure , heart rate 76, temperature 97.4, respirations 18. HEENT: Pale conjunctivae. CHEST: Minimal rhonchi. HEART: S1 and S2 are regular. ABDOMEN: Soft. EXTREMITIES: No edema. Significant muscle wasting. Yesterday's chest x-ray revealed bilateral pleural effusion, right PICC line catheter terminating just above the cavoatrial junction. ASSESSMENT: 1. Paroxysmal atrial tachycardia as well as periods of multifocal atrial tachycardia. 2. Chronic obstructive lung disease. 3. Clostridium difficile colitis. 4. Enterococcus faecalis urinary tract infection. 5. Hyponatremia. 6. Anemia and mild thrombocytopenia. RECOMMENDATIONS: Continue Cardizem at 30 mg every 6 hours, Crestor 10 mg once a day, fluconazole 100 mg intravenously daily, Maxipime at 1 gm intravenously daily, Synthroid 200 mcg once a day, vancomycin 250 mg p.o. q.i.d. Tru Vinson MD
--- NOTE | 2018-01-06 22:43 | CP.PCM.PN ---
Subjective - Date & Time of Evaluation Date of Evaluation: 01/06/18 Time of Evaluation: 22:43 - Subjective Subjective: CHIEF COMPLAINTS TODAY : AFEBRILE. AWAKE, -veSOB PT WEAK/CAHECTIC ROS. HEENT : N. Resp : NO SOB,NO wheezing ,pleuritic CP ,or hemoptysis Cardio : No anginal CP, PND, orthopnea, palpitation GI : No abd.pain, n/v ,diarrhea or GI bleeding . FIELD ACCOUNT DIRECTOR : No headache, vertigo, focal deficit. Musculoskel : No joint swelling , Derm : No rash Psych : Normal affect. Ext : No swelling ,calf pain PE. Pt. is awake ,PRESENTLY NOT IN ACUTE DISTRESS V.S As noted in the chart Head ,ear nose,throat and eyes : Normal. Neck : Supple with normal carotids. Lungs: DIMINISHED BREATH SOUNDS AT THE BASES Heart : S1 & S2 IRREGULAR.. Abd : Soft non tender with normal bowel sounds Neuro : Moves all ext. with no localized deficit. Ext : +ve b/l EDEMA 1+ with intact pulses.Non tender calves Derm : No rashes or decubitus ulcer. LABS/RADIOLOGY: REVIEWED. WBC 7.3 RENAL FUNCTION STABLE LFTS N STOOL FOR C. DIFFICILE NEGATIVE 12/26/17 REPEAT UA -VE 01/02/18 -CULTURE - NO GROWTH. BLOOD CULTURE 12/22/17 -VE 3 DAYS VIA CC Objective - Vital Signs/Intake and Output Vital Signs (last 24 hours): Temp Pulse Resp BP Pulse Ox 97.4 F L 90 24 102/73 94 L 01/06/18 15:39 01/06/18 15:39 01/06/18 15:39 01/06/18 15:39 01/06/18 15:39 Intake and Output: 01/06/18 01/07/18 18:59 06:59 Intake Total 400 Output Total 100 Balance 300 - Medications Medications: Current Medications Cholestyramine Resin (Questran) 4 gm PO QID [facility] Last Admin: 01/06/18 17:56 Dose: 4 gm Diltiazem HCl (Cardizem) 30 mg NG Q6H [facility] Last Admin: 01/06/18 17:57 Dose: 30 mg Cefepime HCl (Maxipime Iv 1 Gm Premix) 1 gm in 50 mls @ 100 mls/hr IVPB Q24H [facility] PRN Reason: Protocol Last Admin: 01/06/18 17:56 Dose: 100 mls/hr Fluconazole (Diflucan Iv 100 Mg/50 Ml Ns) 50 mls @ 50 mls/hr IVPB DAILY [facility] PRN Reason: Protocol Last Admin: 01/06/18 10:12 Dose: 50 mls/hr Doxycycline Hyclate 100 mg/ (Sodium Chloride) 100 mls @ 100 mls/hr IVPB Q12H [facility] PRN Reason: Protocol Last Admin: 01/06/18 08:24 Dose: 100 mls/hr Levothyroxine Sodium (Synthroid) 100 mcg NG 0630 [facility] Last Admin: 01/06/18 06:39 Dose: Not Given Lorazepam (Ativan) 0.5 mg NG Q12 PRN PRN Reason: Agitation Pantoprazole Sodium (Protonix Inj) 40 mg IVP BID [facility] Last Admin: 01/06/18 17:57 Dose: 40 mg Rosuvastatin Calcium (Crestor) 10 mg NG HS [facility] Last Admin: 01/05/18 22:08 Dose: 10 mg Saccharomyces Boulardii (Florastor) 250 mg NG BID [facility] Last Admin: 01/06/18 17:56 Dose: 250 mg Fluticasone/Salmeterol (Advair Diskus 250/50) 1 puff INH RQ12 [facility] Last Admin: 01/06/18 20:26 Dose: Not Given Vancomycin HCl (Vancocin (Oral Or Rectal Use)) 250 mg NG QID [facility] PRN Reason: Protocol Last Admin: 01/06/18 17:57 Dose: 250 mg Vitamin A (Vitamin A & D Oint Ud Foilpak) 1 ea EXT Q8 PRN PRN Reason: Dry SKIN Last Admin: 12/23/17 17:24 Dose: 1 ea - Labs Labs: 01/05/18 11:22 01/05/18 11:22 PT 14.5 SECONDS (9.7-12.2) H 12/28/17 06:11 INR 1.3 12/28/17 06:11 APTT 29 SECONDS (21-34) 12/28/17 06:11 Assessment and Plan (1) Pneumonia Assessment & Plan: ON IV MAXIPEME 1 G EVERY 24 HOURLY 12/22/17 FOR NOW CXR NOT SHOWING MUCH IMPROVEMENT ON IV DOXYCYCLINE 100MG IV [id number] 01/04/18 MRSA SCREEN -VE PULMONARY TOILET. CXR 01/02/18 NOTED RUL PATCHY NODULAR OPACITY B/L LL HAZY OPACITIES-B/L PL. EFFUSION/ATELECTASIS AND OR INFILTRATES L>RT. F/U CXR TO CLEARING PT DNR/DNI NOTED. Status: Acute (2) C. difficile colitis Assessment & Plan: REPEAT C.DIFFICILE TOXIN STOOLS -VE ON PO VANCMYCIN 250MG PO QID 12/18/17 TAPER VANCOMYCIN 125MG PO TID [id number] STARTING ON 01/07/18 DECREASE VANCOMYCIN 125MG PO BID X 7 DAYS. DECREASE VANCOMYCIN 125MG PO OD DAILY X 7DAYS. DECREASE PO VANCOMYCIN 125MG EVERY MWF X 2WKS OFF IV FLAGYL 01/04/19 Status: Acute (3) Dehydration Status: Acute (4) Hypernatremia Status: Resolved (5) Atrial fibrillation with rapid ventricular response Status: Acute (6) Breast mass, left Status: Acute (7) Candiduria Assessment & Plan: OFF IV DIFLUCAN 100MG IV [id number] - LAST DOSE ON 01/05/18. REPEAT URINE CULTURES NEGATIVE GROWTH. Status: Acute (8) GIB (gastrointestinal bleeding) Status: Acute
[2018-01-07] MEDS: Vitamins A & D Oint UD Foilpak EXT PRN (06:31)
[2018-01-07] MEDS: Levothyroxine 100 MCG TAB NG SCH (06:32)
[2018-01-07] MEDS: Fluticasone-Salmeterol 250-50mcg Diskus INH SCH ×2 (08:43→19:45)
[2018-01-07] MEDS: Saccharomyces Boulardi 250 mg Cap NG SCH ×2 (09:37→18:49)
[2018-01-07] MEDS: Cholestyramine 4 gm/Pkt UD PO SCH ×4 (09:37→22:05)
[2018-01-07] MEDS: Vancomycin 125 MG/5 ML SOLN (ORAL/RECTAL) PO SCH ×3 (09:37→18:50)
--- NOTE | 2018-01-07 10:39 | CP.PCM.PN ---
Subjective - Date & Time of Evaluation Date of Evaluation: 01/06/18 Time of Evaluation: 19:00 - Subjective Subjective: Pt seen and examined, pt is on antibiotics, she is anxious and nervous, she has poor apetite but overall relatively more stable, she is DNR/DNI Objective - Vital Signs/Intake and Output Vital Signs (last 24 hours): Temp Pulse Resp BP Pulse Ox 98.3 F 89 20 97/60 L 95 01/07/18 08:46 01/07/18 08:46 01/07/18 08:46 01/07/18 08:46 01/07/18 08:46 Intake and Output: 01/07/18 01/07/18 06:59 18:59 Intake Total 350 100 Output Total 100 200 Balance 250 -100 - Medications Medications: Current Medications Cholestyramine Resin (Questran) 4 gm PO QID [facility] Last Admin: 01/07/18 09:37 Dose: 4 gm Diltiazem HCl (Cardizem) 30 mg NG Q6H [facility] Last Admin: 01/07/18 06:32 Dose: Not Given Cefepime HCl (Maxipime Iv 1 Gm Premix) 1 gm in 50 mls @ 100 mls/hr IVPB Q24H [facility] PRN Reason: Protocol Last Admin: 01/06/18 17:56 Dose: 100 mls/hr Doxycycline Hyclate 100 mg/ (Sodium Chloride) 100 mls @ 100 mls/hr IVPB Q12H [facility] PRN Reason: Protocol Last Admin: 01/07/18 08:17 Dose: 100 mls/hr Levothyroxine Sodium (Synthroid) 100 mcg NG 0630 [facility] Last Admin: 01/07/18 06:32 Dose: Not Given Lorazepam (Ativan) 0.5 mg NG Q12 PRN PRN Reason: Agitation Pantoprazole Sodium (Protonix Inj) 40 mg IVP BID [facility] Last Admin: 01/07/18 09:37 Dose: 40 mg Rosuvastatin Calcium (Crestor) 10 mg NG HS [facility] Last Admin: 01/06/18 22:51 Dose: Not Given Saccharomyces Boulardii (Florastor) 250 mg NG BID [facility] Last Admin: 01/07/18 09:37 Dose: 250 mg Fluticasone/Salmeterol (Advair Diskus 250/50) 1 puff INH RQ12 [facility] Last Admin: 01/07/18 08:43 Dose: Not Given Vancomycin HCl (Vancocin (Oral Or Rectal Use)) 125 mg PO TID [facility] PRN Reason: Protocol Stop: 01/21/18 10:01 Last Admin: 01/07/18 09:37 Dose: 125 mg Vitamin A (Vitamin A & D Oint Ud Foilpak) 1 ea EXT Q8 PRN PRN Reason: Dry SKIN Last Admin: 01/07/18 06:31 Dose: 1 ea - Labs Labs: 01/05/18 11:22 01/05/18 11:22 PT 14.5 SECONDS (9.7-12.2) H 12/28/17 06:11 INR 1.3 12/28/17 06:11 APTT 29 SECONDS (21-34) 12/28/17 06:11 - Constitutional Appears: No Acute Distress - Eye Exam Eye Exam: EOMI, Normal appearance, PERRL Pupil Exam: NORMAL ACCOMODATION, PERRL - Respiratory Exam Respiratory Exam: Clear to Ausculation Bilateral, NORMAL BREATHING PATTERN - Cardiovascular Exam Cardiovascular Exam: REGULAR RHYTHM, +S1, +S2. absent: Murmur - GI/Abdominal Exam GI & Abdominal Exam: Soft, Normal Bowel Sounds. absent: Tenderness - Neurological Exam Neurological Exam: Alert, CN II-XII Intact - Psychiatric Exam Psychiatric exam: Anxious Assessment and Plan (1) C. difficile colitis Status: Acute (2) Dehydration Status: Acute (3) Septicemia Status: Acute (4) Anxiety Status: Acute (5) COPD (chronic obstructive pulmonary disease) Status: Acute (6) Depressed Status: Acute (7) Diarrhea Status: Acute (8) HTN (hypertension) Status: Acute - Assessment and Plan (Free Text) Plan: anxiolytics nutrition DNR/DNI discuss Id for D/C antibiotics
--- NOTE | 2018-01-07 10:40 | CP.PCM.PN ---
Subjective - Date & Time of Evaluation Date of Evaluation: 01/07/18 Time of Evaluation: 21:00 - Subjective Subjective: Pt seen and examined at bedside, is weak, laethrgic, anxious, poor apetite, DNR/ DNI H and H is stable, despite reported bleeding per rectum Objective - Vital Signs/Intake and Output Vital Signs (last 24 hours): Temp Pulse Resp BP Pulse Ox 98.3 F 89 20 97/60 L 95 01/07/18 08:46 01/07/18 08:46 01/07/18 08:46 01/07/18 08:46 01/07/18 08:46 Intake and Output: 01/07/18 01/07/18 06:59 18:59 Intake Total 350 100 Output Total 100 200 Balance 250 -100 - Medications Medications: Current Medications Cholestyramine Resin (Questran) 4 gm PO QID [facility] Last Admin: 01/07/18 09:37 Dose: 4 gm Diltiazem HCl (Cardizem) 30 mg NG Q6H [facility] Last Admin: 01/07/18 06:32 Dose: Not Given Cefepime HCl (Maxipime Iv 1 Gm Premix) 1 gm in 50 mls @ 100 mls/hr IVPB Q24H [facility] PRN Reason: Protocol Last Admin: 01/06/18 17:56 Dose: 100 mls/hr Doxycycline Hyclate 100 mg/ (Sodium Chloride) 100 mls @ 100 mls/hr IVPB Q12H [facility] PRN Reason: Protocol Last Admin: 01/07/18 08:17 Dose: 100 mls/hr Levothyroxine Sodium (Synthroid) 100 mcg NG 0630 [facility] Last Admin: 01/07/18 06:32 Dose: Not Given Lorazepam (Ativan) 0.5 mg NG Q12 PRN PRN Reason: Agitation Pantoprazole Sodium (Protonix Inj) 40 mg IVP BID [facility] Last Admin: 01/07/18 09:37 Dose: 40 mg Rosuvastatin Calcium (Crestor) 10 mg NG HS [facility] Last Admin: 01/06/18 22:51 Dose: Not Given Saccharomyces Boulardii (Florastor) 250 mg NG BID [facility] Last Admin: 01/07/18 09:37 Dose: 250 mg Fluticasone/Salmeterol (Advair Diskus 250/50) 1 puff INH RQ12 [facility] Last Admin: 01/07/18 08:43 Dose: Not Given Vancomycin HCl (Vancocin (Oral Or Rectal Use)) 125 mg PO TID [facility] PRN Reason: Protocol Stop: 01/21/18 10:01 Last Admin: 01/07/18 09:37 Dose: 125 mg Vitamin A (Vitamin A & D Oint Ud Foilpak) 1 ea EXT Q8 PRN PRN Reason: Dry SKIN Last Admin: 01/07/18 06:31 Dose: 1 ea - Labs Labs: 01/05/18 11:22 01/05/18 11:22 PT 14.5 SECONDS (9.7-12.2) H 12/28/17 06:11 INR 1.3 12/28/17 06:11 APTT 29 SECONDS (21-34) 12/28/17 06:11 - Constitutional Appears: No Acute Distress - Head Exam Head Exam: ATRAUMATIC, NORMAL INSPECTION, NORMOCEPHALIC - Eye Exam Eye Exam: EOMI, Normal appearance, PERRL Pupil Exam: NORMAL ACCOMODATION, PERRL - ENT Exam ENT Exam: Mucous Membranes Moist, Normal Exam - Neck Exam Neck Exam: Full ROM, Normal Inspection. absent: Lymphadenopathy - Respiratory Exam Respiratory Exam: Clear to Ausculation Bilateral, NORMAL BREATHING PATTERN - Cardiovascular Exam Cardiovascular Exam: REGULAR RHYTHM, +S1, +S2. absent: Murmur - GI/Abdominal Exam GI & Abdominal Exam: Soft, Normal Bowel Sounds. absent: Tenderness Assessment and Plan (1) C. difficile colitis Status: Acute (2) Dehydration Status: Acute (3) Septicemia Status: Acute (4) Anxiety Status: Acute (5) COPD (chronic obstructive pulmonary disease) Status: Acute (6) Depressed Status: Acute (7) Diarrhea Status: Acute (8) HTN (hypertension) Status: Acute
[2018-01-07] MEDS: Cefepime IV 1 gm in Dextrose 1 GM/50 ML BAG IVPB SCH (18:50)
--- NOTE | 2018-01-07 19:57 | PN ---
DATE: 01/07/2018 SUBJECTIVE: The patient complains of shortness of breath. She denies any chest pain. PHYSICAL EXAMINATION: VITAL SIGNS: Blood pressure 97/60, heart rate 89, temperature 98.3, respirations 20. HEENT: Pale conjunctiva. CHEST: Bilateral rhonchi. HEART: S1 and S2 regular. ABDOMEN: Soft. EXTREMITIES: No edema. ASSESSMENT: 1. History of multifocal atrial tachycardia. 2. Suspicion of chronic obstructive lung disease. 3. Clostridium difficile colitis. 4. Enterococcus fecalis urinary tract infection. 5. Hypomagnesemia. RECOMMENDATIONS: Continue Cardizem 30 mg every 6 hours, Crestor 10 mg once a day, doxycycline 100 mg intravenously every 12 hours, Maxipime at 1 gm intravenously daily, vancomycin at 125 mg p.o. t.i.d., Synthroid 100 mcg once a day. Obtain 12-lead EKG. Tru Vinson MD
[2018-01-08 00:20] VITALS: RESP 20; O2SAT 95
[2018-01-08] MEDS: Levothyroxine 100 MCG TAB NG SCH (05:38)
[2018-01-08] MEDS: Fluticasone-Salmeterol 250-50mcg Diskus INH SCH (07:57)
[2018-01-08] MEDS: Cholestyramine 4 gm/Pkt UD PO SCH ×3 (09:54→17:48)
[2018-01-08] MEDS: Saccharomyces Boulardi 250 mg Cap NG SCH ×2 (09:54→17:48)
[2018-01-08] MEDS: Vancomycin 125 MG/5 ML SOLN (ORAL/RECTAL) PO SCH ×3 (09:57→17:48)
--- NOTE | 2018-01-08 15:58 | CP.PCM.PN ---
Subjective - Date & Time of Evaluation Date of Evaluation: 01/08/18 Time of Evaluation: 09:00 - Subjective Subjective: Patient was seen and examined this morning at bedside. Patient is awake and alert. Patient had no acute episodes overnight. Patient continues to use BiPAP overnight. Patient is afebrile. As per nurse patient's appetite has decreased. Patient has no acute complaints. ROS: Constitutional: Negative for fever and chills. Cardiovascular: Negative chest pain, palpitations. Respiratory: Negative for shortness of breath or cough. Gastrointestinal: Negative for nausea, vomiting, diarrhea. Physical Exam HEENT: Atraumatic, normocephalic, mucuous membranes moist Respiratory: Decreased breath sounds at lung bases. No wheezing or rhonchi. No use of accessory muscles. Cardiovascular: +S1/ S2, regular rate and rhythm GI: Normal bowel sounds in all 4 quadrants, no tenderness, no distention Extremities: No LE edema Neurological: Alert and awake Assessment: 82 year old female with PMHx of CHF, dementia, anxiety, COPD, and HTN. Patient' s exam consistent with COPDexacerbation. 1. COPD Exacerbation Status: Chronic - Albuterol/ Ipratropium 3 ml INH RQ6 - Continue BiPAP as needed 2. Hypertension Status: Chronic - Diltiazem Hcl 30 mg NG Q6H 3. Anxiety Status: Chronic - Lorazepam 0.5 mg NG Q12 PRN Objective - Vital Signs/Intake and Output Vital Signs (last 24 hours): Temp Pulse Resp BP Pulse Ox 98.5 F 73 20 110/76 95 01/08/18 08:16 01/08/18 08:16 01/08/18 08:16 01/08/18 08:16 01/08/18 00:00 Intake and Output: 01/08/18 01/08/18 06:59 18:59 Intake Total 500 340 Output Total 300 300 Balance 200 40 - Medications Medications: Current Medications Acetaminophen (Tylenol 325mg Tab) 650 mg PO Q6 PRN PRN Reason: Pain, moderate (4-7) Last Admin: 01/08/18 15:45 Dose: 650 mg Cholestyramine Resin (Questran) 4 gm PO QID [facility] Last Admin: 01/08/18 14:21 Dose: Not Given Diltiazem HCl (Cardizem) 30 mg NG Q6H [facility] Last Admin: 01/08/18 13:00 Dose: Not Given Cefepime HCl (Maxipime Iv 1 Gm Premix) 1 gm in 50 mls @ 100 mls/hr IVPB Q24H [facility] PRN Reason: Protocol Last Admin: 01/07/18 18:50 Dose: 100 mls/hr Doxycycline Hyclate 100 mg/ (Sodium Chloride) 100 mls @ 100 mls/hr IVPB Q12H [facility] PRN Reason: Protocol Last Admin: 01/08/18 09:52 Dose: 100 mls/hr Levothyroxine Sodium (Synthroid) 100 mcg NG 0630 [facility] Last Admin: 01/08/18 05:38 Dose: Not Given Lorazepam (Ativan) 0.5 mg NG Q12 PRN PRN Reason: Agitation Pantoprazole Sodium (Protonix Inj) 40 mg IVP BID [facility] Last Admin: 01/08/18 09:54 Dose: 40 mg Rosuvastatin Calcium (Crestor) 10 mg NG HS [facility] Last Admin: 01/07/18 22:05 Dose: 10 mg Saccharomyces Boulardii (Florastor) 250 mg NG BID [facility] Last Admin: 01/08/18 09:54 Dose: 250 mg Vancomycin HCl (Vancocin (Oral Or Rectal Use)) 125 mg PO TID [facility] PRN Reason: Protocol Stop: 01/21/18 10:01 Last Admin: 01/08/18 14:21 Dose: 125 mg Vitamin A (Vitamin A & D Oint Ud Foilpak) 1 ea EXT Q8 PRN PRN Reason: Dry SKIN Last Admin: 01/07/18 06:31 Dose: 1 ea - Labs Labs: 01/05/18 11:22 01/05/18 11:22 PT 14.5 SECONDS (9.7-12.2) H 12/28/17 06:11 INR 1.3 12/28/17 06:11 APTT 29 SECONDS (21-34) 12/28/17 06:11 Assessment and Plan (1) C. difficile colitis Status: Acute (2) COPD exacerbation Status: Acute (3) Dehydration Status: Acute
--- NOTE | 2018-01-08 16:01 | PN ---
DATE: 01/08/2018 LOCATION: [address] bed [address]. SUBJECTIVE: This is an 82-year-old female, in a status of DNR/DNI, was seen in rounds early this morning as requested by the admitting medical staff due to again reported some rectal bleeding on and off, but no other significant reported new complaint. No reported chest pain or palpitation. No hematemesis. No significant shortness of breath or chills or fever. The entire chart is reviewed including but not limited to the most recent lab and radiology study results, current and the previous medication list, current and the previous medical events. The patient has very poor oral intake and the recent blood workup showed low hemoglobin and hematocrit with electrolyte imbalance with period of hypoglycemia with very low albumin and total protein. PHYSICAL EXAMINATION: GENERAL: An 82-year-old female, not responding well to verbal stimuli. VITAL SIGNS: Afebrile with pulse of 76, respiratory rate 20-22, still on nasal cannula with blood pressure of 112/72. HEENT: Showed pale dry, oral mucous membrane. Nonicteric sclerae. LUNGS: Few scattered crepitation with decreased air entry bilaterally. HEART: Positive S1 and S2. ABDOMEN: Soft with mild generalized tenderness. No mass or organomegaly. No rebound tenderness or guarding. EXTREMITIES: Evidence of muscle wasting syndrome and mild lower extremity edematous changes. No clubbing or cyanosis. NEUROLOGIC: No reported new neurological deficits, sensory or motor. IMPRESSION: 1. Re-exacerbation of peptic ulcer disease. 2. Gastrointestinal blood loss with re-exacerbation of peptic ulcer disease, the possibility of lower gastrointestinal blood loss was raised. 3. Reported history of multifocal atrial tachycardia. 4. Recurrent urinary tract infection by recent history. 5. Recent history of episodes of hypoglycemia of unclear etiology. 6. Bilateral pleural effusion with respiratory insufficiency. 7. Malnutrition with severe hypoalbuminemia and hypoproteinemia. 8. Reported history of hypertension with severe anxiety syndrome. 9. Pseudomembranous colitis by recent history, gradually improving with less episodes of bowel movement frequency. SUGGESTIONS: 1. Agree with your plan. 2. Repeat stool for C. diff. 3. Blood transfusion as needed to keep hemoglobin around 10 gm percent. 4. Albumin IV. 5. Central hyperalimentation. 6. The patient could be a candidate for PEG insertion. Sarah Sanders MD [facility] # [id number]
[2018-01-08 16:36] VITALS: BP 103/61; PULSE 94; TEMP 98
--- NOTE | 2018-01-08 16:50 | CP.PCM.PN ---
Subjective - Date & Time of Evaluation Date of Evaluation: 01/08/18 Time of Evaluation: 16:50 - Subjective Subjective: CHIEF COMPLAINTS TODAY : AFEBRILE. AWAKE, -veSOB FEELING BETTER ROS. HEENT : N. Resp : NO SOB,NO wheezing ,pleuritic CP ,or hemoptysis Cardio : No anginal CP, PND, orthopnea, palpitation GI : No abd.pain, n/v ,diarrhea or GI bleeding . [employer] : No headache, vertigo, focal deficit. Musculoskel : No joint swelling , Derm : No rash Psych : Normal affect. Ext : No swelling ,calf pain PE. Pt. is awake ,PRESENTLY NOT IN ACUTE DISTRESS V.S As noted in the chart Head ,ear nose,throat and eyes : Normal. Neck : Supple with normal carotids. Lungs: BETTER AERATION BASES Heart : S1 & S2 IRREGULAR.. Abd : Soft non tender with normal bowel sounds Neuro : Moves all ext. with no localized deficit. Ext : +ve b/l EDEMA 1+ with intact pulses.Non tender calves Derm : No rashes or decubitus ulcer. LABS/RADIOLOGY: REVIEWED. WBC 7.3 RENAL FUNCTION STABLE LFTS N STOOL FOR C. DIFFICILE NEGATIVE 12/26/17 REPEAT UA -VE 01/02/18 -CULTURE - NO GROWTH. BLOOD CULTURE 12/22/17 -VE 3 DAYS VIA CC Objective - Vital Signs/Intake and Output Vital Signs (last 24 hours): Temp Pulse Resp BP Pulse Ox 98 F 94 H 20 103/61 95 01/08/18 16:00 01/08/18 16:00 01/08/18 16:00 01/08/18 16:00 01/08/18 16:00 Intake and Output: 01/08/18 01/08/18 06:59 18:59 Intake Total 500 340 Output Total 300 300 Balance 200 40 - Medications Medications: Current Medications Acetaminophen (Tylenol 325mg Tab) 650 mg PO Q6 PRN PRN Reason: Pain, moderate (4-7) Last Admin: 01/08/18 15:45 Dose: 650 mg Cholestyramine Resin (Questran) 4 gm PO QID [facility] Last Admin: 01/08/18 14:21 Dose: Not Given Diltiazem HCl (Cardizem) 30 mg NG Q6H [facility] Last Admin: 01/08/18 13:00 Dose: Not Given Cefepime HCl (Maxipime Iv 1 Gm Premix) 1 gm in 50 mls @ 100 mls/hr IVPB Q24H [facility] PRN Reason: Protocol Last Admin: 01/07/18 18:50 Dose: 100 mls/hr Doxycycline Hyclate 100 mg/ (Sodium Chloride) 100 mls @ 100 mls/hr IVPB Q12H [facility] PRN Reason: Protocol Last Admin: 01/08/18 09:52 Dose: 100 mls/hr Levothyroxine Sodium (Synthroid) 100 mcg NG 0630 [facility] Last Admin: 01/08/18 05:38 Dose: Not Given Lorazepam (Ativan) 0.5 mg NG Q12 PRN PRN Reason: Agitation Pantoprazole Sodium (Protonix Inj) 40 mg IVP BID [facility] Last Admin: 01/08/18 09:54 Dose: 40 mg Rosuvastatin Calcium (Crestor) 10 mg NG HS [facility] Last Admin: 01/07/18 22:05 Dose: 10 mg Saccharomyces Boulardii (Florastor) 250 mg NG BID [facility] Last Admin: 01/08/18 09:54 Dose: 250 mg Vancomycin HCl (Vancocin (Oral Or Rectal Use)) 125 mg PO TID [facility] PRN Reason: Protocol Stop: 01/21/18 10:01 Last Admin: 01/08/18 14:21 Dose: 125 mg Vitamin A (Vitamin A & D Oint Ud Foilpak) 1 ea EXT Q8 PRN PRN Reason: Dry SKIN Last Admin: 01/07/18 06:31 Dose: 1 ea - Labs Labs: 01/05/18 11:22 01/05/18 11:22 PT 14.5 SECONDS (9.7-12.2) H 12/28/17 06:11 INR 1.3 12/28/17 06:11 APTT 29 SECONDS (21-34) 12/28/17 06:11 Assessment and Plan (1) Pneumonia Assessment & Plan: DC IV MAXIPINE. DC IV DOXYCYCLINE. F/U CXR IN 1WEEK TO EVALUATE RESOLVING PNEUMONIA. PT ON BIPAP PRN NEEDED BY PULMONARY. Status: Acute (2) C. difficile colitis Assessment & Plan: REPEAT C.DIFFICILE TOXIN STOOLS -VE ON PO VANCMYCIN 250MG PO QID 12/18/17 TAPER VANCOMYCIN 125MG PO TID [id number] STARTING ON 01/07/18 DECREASE VANCOMYCIN 125MG PO BID X 7 DAYS. DECREASE VANCOMYCIN 125MG PO OD DAILY X 7DAYS. DECREASE PO VANCOMYCIN 125MG EVERY MWF X 2WKS OFF IV FLAGYL 01/04/19 Status: Acute (3) Dehydration Status: Acute (4) Atrial fibrillation with rapid ventricular response Status: Acute (5) Breast mass, left Status: Acute (6) Candiduria Assessment & Plan: RESOLVED. Status: Acute (7) GIB (gastrointestinal bleeding) Status: Acute
--- NOTE | 2018-01-08 17:33 | CP.PCM.PN ---
Subjective - Date & Time of Evaluation Date of Evaluation: 01/08/18 Time of Evaluation: 11:00 - Subjective Subjective: Awake, alert, no acute distress. Objective - Vital Signs/Intake and Output Vital Signs (last 24 hours): Temp Pulse Resp BP Pulse Ox 98 F 94 H 20 103/61 95 01/08/18 16:00 01/08/18 16:00 01/08/18 16:00 01/08/18 16:00 01/08/18 16:00 Intake and Output: 01/08/18 01/08/18 06:59 18:59 Intake Total 500 340 Output Total 300 300 Balance 200 40 - Medications Medications: Current Medications Acetaminophen (Tylenol 325mg Tab) 650 mg PO Q6 PRN PRN Reason: Pain, moderate (4-7) Last Admin: 01/08/18 15:45 Dose: 650 mg Cholestyramine Resin (Questran) 4 gm PO QID [facility] Last Admin: 01/08/18 14:21 Dose: Not Given Diltiazem HCl (Cardizem) 30 mg NG Q6H [facility] Last Admin: 01/08/18 13:00 Dose: Not Given Cefepime HCl (Maxipime Iv 1 Gm Premix) 1 gm in 50 mls @ 100 mls/hr IVPB Q24H [facility] PRN Reason: Protocol Last Admin: 01/07/18 18:50 Dose: 100 mls/hr Doxycycline Hyclate 100 mg/ (Sodium Chloride) 100 mls @ 100 mls/hr IVPB Q12H [facility] PRN Reason: Protocol Last Admin: 01/08/18 09:52 Dose: 100 mls/hr Levothyroxine Sodium (Synthroid) 100 mcg NG 0630 [facility] Last Admin: 01/08/18 05:38 Dose: Not Given Lorazepam (Ativan) 0.5 mg NG Q12 PRN PRN Reason: Agitation Pantoprazole Sodium (Protonix Inj) 40 mg IVP BID [facility] Last Admin: 01/08/18 09:54 Dose: 40 mg Rosuvastatin Calcium (Crestor) 10 mg NG HS [facility] Last Admin: 01/07/18 22:05 Dose: 10 mg Saccharomyces Boulardii (Florastor) 250 mg NG BID [facility]PL[facility] Last Admin: 01/08/18 09:54 Dose: 250 mg Vancomycin HCl (Vancocin (Oral Or Rectal Use)) 125 mg PO TID [facility] PRN Reason: Protocol Stop: 01/21/18 10:01 Last Admin: 01/08/18 14:21 Dose: 125 mg Vitamin A (Vitamin A & D Oint Ud Foilpak) 1 ea EXT Q8 PRN PRN Reason: Dry SKIN Last Admin: 01/07/18 06:31 Dose: 1 ea - Labs Labs: 01/05/18 11:22 01/05/18 11:22 PT 14.5 SECONDS (9.7-12.2) H 12/28/17 06:11 INR 1.3 12/28/17 06:11 APTT 29 SECONDS (21-34) 12/28/17 06:11 Assessment and Plan - Assessment and Plan (Free Text) Assessment: Patient admitted with pneumonia, s/p EGD, c-diff colitis, rapid afib, sepsis, etc, seen and examined. Alert, oriented, follows commands, no sob or distress. Occationally uses BIPAP machine. Discussed with DR Ovalle and DR Patel, plan to discharge to [facility] under the service of DR Pacheco on tapering dose of vancomycin po. Patient and family in agreement, no acute distress noted.
--- NOTE | 2018-01-08 17:38 | PCM.HF ---
Heart Failure Core Measure - Heart Failure Ejection Fraction: 40 % or Greater (EF 75%) JERRI Inhibitor Prescribed: No Contraindication/Reason for not providing: LOW BP Beta-Dariela Prescribed: None Contraindication/Reason for not providing: low BP Angiotensin II Receptor Dariela Prescribed: No Contraindication/Reason for not providing: low BP AnticoagulationTherapy for Atrial Fibrillation/Atrialflutter: No Contraindication/Reason for not providing: NO AFIB Aldosterone Antagonist Prescribed: No Contraindication/Reason for not providing: EF >40% Hydralazine Nitrate Prescribed: No Contraindication/Reason for not providing: on calcium channel dariela Implantable Cardioverter Defibrillator Therapy: No Contraindication/Reason for not providing: EF >40% Cardiac Resynchronization Therapy Prescribed: No Contraindication/Reason for not providing: not indicated - Follow up Will be discharged to: Group Home Facility ([facility]
[2018-01-08] MEDS: Cefepime IV 1 gm in Dextrose 1 GM/50 ML BAG IVPB SCH (17:47)
--- NOTE | 2018-01-08 21:41 | PN ---
DATE: 01/08/2018 FOLLOWUP SUBJECTIVE: The patient denies any chest pain. She complains of shortness of breath. PHYSICAL EXAMINATION: VITAL SIGNS: Blood pressure 110/76, heart rate 73, temperature 98.5, respirations 20. HEENT: Pale conjunctivae. CHEST: Bilateral rhonchi. HEART: S1 and S2 are regular. ABDOMEN: Soft. EXTREMITIES: No edema. LABORATORY DATA: Yesterday's EKG revealed sinus rhythm at rate of 98 with frequent APCs; however, atrial fibrillation is also possibility. Consider inferoposterior infarct of indeterminate age. ASSESSMENT: 1. History of multifocal atrial tachycardia. 2. Chronic obstructive lung disease. 3. Clostridium difficile colitis. 4. Enterococcus faecalis urinary tract infection. RECOMMENDATIONS: Continue Cardizem at 30 mg every 6 hours, Crestor 10 mg once a day, doxycycline 100 mg intravenously every 12 hours, Maxipime at 1 gm intravenously daily, oral vancomycin at 125 mg t.i.d. Tru Vinson MD
--- NOTE | 2018-01-09 10:48 | CP.PCM.DIS ---
Provider - Provider Date of Admission: 12/15/17 23:37 Attending physician: Lex Patel MD Time Spent in preparation of Discharge (in minutes): 36 Diagnosis - Discharge Diagnosis (1) C. difficile colitis Status: Acute (2) Dehydration Status: Acute (3) Septicemia Status: Acute (4) Anxiety Status: Acute (5) COPD (chronic obstructive pulmonary disease) Status: Acute (6) Depressed Status: Acute (7) Diarrhea Status: Acute (8) HTN (hypertension) Status: Acute Hospital Course - Lab Results Lab Results: Micro Results 01/02/18 07:20 Urine,Catheterized Urine Culture - Final No Growth (<1,000 CFU/ML) 12/29/17 14:33 Nose MRSA Culture - Final MRSA NOT DETECTED 12/22/17 19:30 Blood-Thru Central Line Blood Culture - Final NO GROWTH AFTER 5 DAYS 12/22/17 19:30 Blood-Thru Central Line Gram Stain - Final TEST NOT PERFORMED 12/22/17 19:30 Blood-Thru Central Line Blood Culture - Final NO GROWTH AFTER 5 DAYS 12/22/17 19:30 Blood-Thru Central Line Gram Stain - Final TEST NOT PERFORMED 12/25/17 18:21 Urine,Catheterized Urine Culture - Final Yeast Species 12/16/17 08:03 Blood-Venous Blood Culture - Final NO GROWTH AFTER 5 DAYS 12/16/17 08:03 Blood-Venous Gram Stain - Final TEST NOT PERFORMED 12/16/17 08:03 Blood-Venous Blood Culture - Final NO GROWTH AFTER 5 DAYS 12/19/17 18:17 Urine,Ramos Urine Culture - Final Yeast Species 12/16/17 07:08 Urine,Catheterized Urine Culture - Final Enterococcus Faecalis 12/16/17 06:37 Nose MRSA Culture (Admit) - Final MRSA NOT DETECTED Most Recent Lab Values WBC 7.3 K/uL (4.8-10.8) 01/05/18 11:22 RBC 3.54 Mil/uL (3.80-5.20) L 01/05/18 11:22 Hgb 10.8 g/dL (11.0-16.0) L 01/05/18 11:22 Hct 31.7 % (34.0-47.0) L 01/05/18 11:22 MCV 89.4 fL (81.0-99.0) 01/05/18 11:22 MCH 30.5 pg (27.0-31.0) 01/05/18 11:22 MCHC 34.1 g/dL (33.0-37.0) 01/05/18 11:22 RDW 15.8 % (11.5-14.5) H 01/05/18 11:22 Plt Count 128 K/uL (130-400) L 01/05/18 11:22 MPV 8.2 fL (7.2-11.7) 01/05/18 11:22 Neut % (Auto) 84.0 % (50.0-75.0) H 01/05/18 11:22 Lymph % (Auto) 8.3 % (20.0-40.0) L 01/05/18 11:22 [place] % (Auto) 5.8 % (0.0-10.0) 01/05/18 11:22 Eos % (Auto) 0.7 % (0.0-4.0) 01/05/18 11:22 Baso % (Auto) 1.2 % (0.0-2.0) 01/05/18 11:22 Neut # (Auto) 6.2 K/uL (1.8-7.0) 01/05/18 11:22 Lymph # (Auto) 0.6 K/uL (1.0-4.3) L 01/05/18 11:22 [place] # (Auto) 0.4 K/uL (0.0-0.8) 01/05/18 11:22 Eos # (Auto) 0.1 K/uL (0.0-0.7) 01/05/18 11:22 Baso # (Auto) 0.1 K/uL (0.0-0.2) 01/05/18 11:22 Neutrophils % (Manual) 93 % (50-75) H 01/05/18 11:22 Band Neutrophils % 2 % (0-2) 01/02/18 14:01 Lymphocytes % (Manual) 3 % (20-40) L 01/05/18 11:22 Monocytes % (Manual) 3 % (0-10) 01/05/18 11:22 Eosinophils % (Manual) 1 % (0-4) 01/05/18 11:22 Metamyelocytes % 1 % (0-0) H 12/25/17 06:15 Myelocytes % 1 % (0-0) H 01/02/18 14:01 Nucleated RBC % 1 % (0-0) H 12/25/17 06:15 Differential Comment 01/04/18 07:05 Toxic Granulation Present 12/26/17 06:08 Platelet Estimate Slightly decreased (NORMAL) L 01/05/18 11:22 Large Platelets Present 12/28/17 06:11 Giant Platelets Present 12/26/17 06:08 Polychromasia Slight 01/05/18 11:22 Hypochromasia (manual) Slight 01/05/18 11:22 Poikilocytosis (manual Slight 12/27/17 06:44 Basophilic Stippling Slight 12/26/17 06:08 Anisocytosis (manual) Slight 01/05/18 11:22 Microcytosis (manual) Slight 12/24/17 06:15 Macrocytosis (manual) Slight 12/24/17 06:15 Spherocytes Slight 12/23/17 04:00 Target Cells Slight 12/27/17 06:44 Tear Drop Cells Slight 12/26/17 06:08 Ovalocytes Slight 01/02/18 14:01 Tarah Cells Slight 01/02/18 14:01 Acanthocytes (Spur) Slight 12/24/17 06:15 Schistocytes Slight 12/24/17 06:15 PT 14.5 SECONDS (9.7-12.2) H 12/28/17 06:11 INR 1.3 12/28/17 06:11 APTT 29 SECONDS (21-34) 12/28/17 06:11 D-Dimer, Quantitative 567 ng/mlDDU (0-243) H 12/15/17 21:43 Puncture Site Rr 12/16/17 07:35 pCO2 28 mm/Hg (35-45) L 12/16/17 07:35 pO2 157 mm/Hg (80-100) H 12/16/17 07:35 HCO3 21.2 mmol/L (21-28) 12/16/17 07:35 ABG pH 7.42 (7.35-7.45) 12/16/17 07:35 ABG Total CO2 19.1 mmol/L (22-28) L 12/16/17 07:35 ABG O2 Saturation 99.9 % (95-98) H 12/16/17 07:35 ABG Base Excess -4.9 mmol/L (-2.0-3.0) L 12/16/17 07:35 Jason Test Pos 12/16/17 07:35 ABG Potassium 3.0 mmol/L (3.6-5.2) L 12/16/17 07:35 VBG pH 7.44 (7.32-7.43) H 12/15/17 21:40 VBG pCO2 30 mmHg (40-60) L 12/15/17 21:40 VBG HCO3 21.1 mmol/L 12/15/17 21:40 VBG Total CO2 21.3 mmol/L (22-28) L 12/15/17 21:40 VBG O2 Sat (Calc) 34.8 % (40-65) L 12/15/17 21:40 VBG Base Excess -2.7 mmol/L (0.0-2.0) L 12/15/17 21:40 VBG Potassium 2.5 mmol/L (3.6-5.2) L* 12/15/17 21:40 A-a O2 Difference 165.0 mm/Hg 12/16/17 07:35 Respiratory Index 1.1 12/16/17 07:35 Sodium 154.0 mmol/l (132-148) H 12/16/17 07:35 Chloride 126.0 mmol/L (98-107) H 12/16/17 07:35 Glucose 115 mg/dl (65-105) H 12/16/17 07:35 Lactate 1.0 mmol/L (0.7-2.1) 12/16/17 07:35 Vent Mode Bipap 12/16/17 07:35 Mechanical Rate 12 12/15/17 22:06 FiO2 50.0 % 12/16/17 07:35 Inspiratory BiPAP 10 12/16/17 07:35 Expiratory BiPAP 5 12/16/17 07:35 Crit Value Called To Dr. mae 12/15/17 22:06 Crit Value Called By Ubaldo gaytan 12/15/17 22:06 Crit Value Read Back Y 12/15/17 22:06 Blood Gas Notified Time 0748 12/15/17 22:06 Sodium 131 mmol/L (132-148) L 01/05/18 11:22 Potassium 3.8 mmol/L (3.6-5.2) 01/05/18 11:22 Chloride 104 mmol/L (98-107) 01/05/18 11:22 Carbon Dioxide 25 mmol/L (22-30) 01/05/18 11:22 Anion Gap 7 (10-20) L 01/05/18 11:22 BUN 6 mg/dL (7-17) L 01/05/18 11:22 Creatinine 0.5 mg/dL (0.7-1.2) L 01/05/18 11:22 Est GFR ( Amer) > 60 01/05/18 11:22 Est GFR (Non-Af Amer) > 60 01/05/18 11:22 Random Glucose 64 mg/dL (65-105) L 01/05/18 11:22 Calcium 7.3 mg/dl (8.6-10.4) L 01/05/18 11:22 Phosphorus 1.6 mg/dL (2.5-4.5) L 12/18/17 06:42 Magnesium 1.4 mg/dL (1.6-2.3) L 01/04/18 07:05 Total Bilirubin 0.2 mg/dL (0.2-1.3) 01/05/18 11:22 AST 18 U/L (14-36) 01/05/18 11:22 ALT 36 U/L (9-52) 01/05/18 11:22 Alkaline Phosphatase 75 U/L (38-126) 01/05/18 11:22 Total Creatine Kinase 28 U/L (30-135) L 12/15/17 21:43 CK-MB (Mass) 0.78 ng/mL (0.0-3.38) 12/15/17 21:43 Troponin I 0.1300 ng/mL (0.00-0.120) H* 12/16/17 07:51 NT-Pro-B Natriuret Pep 436 pg/mL (0-900) 01/04/18 07:05 Total Protein 3.6 g/dL (6.3-8.3) L 01/05/18 11:22 Albumin 1.8 g/dL (3.5-5.0) L 01/05/18 11:22 Globulin 1.8 gm/dL (2.2-3.9) L 01/05/18 11:22 Albumin/Globulin Ratio 1.0 (1.0-2.1) 01/05/18 11:22 Carcinoembryonic Ag 3.5 ng/mL (0-3.0) H 12/25/17 06:15 Procalcitonin 0.16 NG/ML (0.19-0.49) L 01/04/18 07:05 TSH 3rd Generation 5.28 mIU/L (0.46-4.68) H 12/18/17 06:42 Arterial Blood Potassium 3.0 mmol/L (3.6-5.2) L 12/16/17 07:35 Venous Blood Potassium 2.5 mmol/L (3.6-5.2) L* 12/15/17 21:40 Urine Color Yellow (YELLOW) 01/02/18 07:20 Urine Clarity Clear (Clear) 01/02/18 07:20 Urine pH 6.0 (5.0-8.0) 01/02/18 07:20 Ur Specific [place] 1.010 (1.003-1.030) 01/02/18 07:20 Urine Protein Negative mg/dL (NEGATIVE) 01/02/18 07:20 Urine Glucose (UA) Normal mg/dL (Normal) 01/02/18 07:20 Urine Ketones Negative mg/dL (NEGATIVE) 01/02/18 07:20 Urine Blood Negative (NEGATIVE) 01/02/18 07:20 Urine Nitrate Negative (NEGATIVE) 01/02/18 07:20 Urine Bilirubin Negative (NEGATIVE) 01/02/18 07:20 Urine Urobilinogen Normal mg/dL (0.2-1.0) 01/02/18 07:20 Ur Leukocyte Esterase Neg [place]/uL (Negative) 01/02/18 07:20 Urine WBC (Auto) 2 /hpf (0-5) 01/02/18 07:20 Urine RBC (Auto) 3 /hpf (0-3) 01/02/18 07:20 Ur Squamous Epith Cells 1 /hpf (0-5) 12/16/17 07:08 Urine Bacteria Rare (<OCC) 12/16/17 07:08 Hyaline Casts 0-2 /lpf (0-2) 12/16/17 07:08 Urine Yeast (Budding) Few /hpf (NEGATIVE) H 12/19/17 18:17 C. difficile Ag & Toxin Negative (NEGATIVE) 12/26/17 18:05 Ur L.pneumophila Ag Negative (NEGATIVE) 01/04/18 07:04 Mycoplasma pneumon IgM Negative (NEGATIVE) 01/04/18 07:05 Blood Type O POSITIVE 01/05/18 11:22 Antibody Screen Negative 01/05/18 11:22 - Hospital Course Hospital Course: Patient admitted with pneumonia, s/p EGD, c-diff colitis, rapid afib, sepsis, etc, seen and examined. Alert, oriented, follows commands, no sob or distress. Occationally uses BIPAP machine. Discussed with DR Ovalle , plan to discharge to [facility] under the service of DR Pacheco on tapering dose of vancomycin po. Patient and family in agreement, no acute distress noted. Discharge Exam - Head Exam Head Exam: ATRAUMATIC, NORMAL INSPECTION, NORMOCEPHALIC - Eye Exam Eye Exam: Normal appearance - ENT Exam ENT Exam: Mucous Membranes Moist - Respiratory Exam Respiratory Exam: Clear to PA & Lateral - Cardiovascular Exam Cardiovascular Exam: REGULAR RHYTHM - GI/Abdominal Exam GI & Abdominal Exam: Normal Bowel Sounds - Rectal Exam Rectal Exam: Deferred Discharge Plan - Discharge Medications Prescriptions: Diltiazem HCl [Cardizem] 30 mg PO Q6H 30 Days tablet - Follow Up Plan Condition: GOOD Disposition: TRANSF TO SNF Instructions: Arrhythmias (DC), Pneumonia, Adult (DC), Sepsis, Adult (DC), Exacerbation of COPD (DC), Atrial Fibrillation (DC)
--- NOTE | 2018-01-09 15:02 | CARD ---
APPROVED REPORT Date of service: 01/07/2018 EKG Measurement Heart [id number] <Conclusion> Sinus rhythm with premature atrial complexes Left axis deviation Low voltage QRS Inferior-posterior infarct, age undetermined Abnormal ECG
== END 2018-01-08 19:32 | DRG 371 ==
LOC: C.ER 21:08 → C.9E 23:37 → C.9I 12-16 00:16 → C.3T 12-29 11:46
PROVIDERS: ADMIT Internal Medicine; ATTEND Internal Medicine
PROC: 5A09557 Assistance with Respiratory Ventilation, Greater than 96 Consecutive Hours, Continuous Positive Airway Pressure (ICD-10-PCS; principal; 2017-12-15)
PROC: 02HV33Z Insertion of Infusion Device into Superior Vena Cava, Percutaneous Approach (ICD-10-PCS; 2017-12-18)
PROC: 0DB68ZX Excision of Stomach, Via Natural or Artificial Opening Endoscopic, Diagnostic (ICD-10-PCS; 2017-12-26)
DX: A04.72 Enterocolitis due to Clostridium difficile, not specified as recurrent (principal); A41.9 Sepsis, unspecified organism; K26.4 Chronic or unspecified duodenal ulcer with hemorrhage; E43 Unspecified severe protein-calorie malnutrition; J18.9 Pneumonia, unspecified organism; I21.4 Non-ST elevation (NSTEMI) myocardial infarction; R64 Cachexia; N39.0 Urinary tract infection, site not specified; N17.9 Acute kidney failure, unspecified; I47.1 Supraventricular tachycardia; J44.0 Chronic obstructive pulmonary disease with (acute) lower respiratory infection; E87.2 Acidosis; E87.0 Hyperosmolality and hypernatremia; J44.1 Chronic obstructive pulmonary disease with (acute) exacerbation; D62 Acute posthemorrhagic anemia; E87.1 Hypo-osmolality and hyponatremia; B49 Unspecified mycosis; B95.2 Enterococcus as the cause of diseases classified elsewhere; L89.159 Pressure ulcer of sacral region, unspecified stage; I11.0 Hypertensive heart disease with heart failure; K29.70 Gastritis, unspecified, without bleeding; K29.80 Duodenitis without bleeding; I50.9 Heart failure, unspecified; I27.29 Other secondary pulmonary hypertension; I48.0 Paroxysmal atrial fibrillation; I49.3 Ventricular premature depolarization; E87.6 Hypokalemia; E86.0 Dehydration; E83.42 Hypomagnesemia; E83.39 Other disorders of phosphorus metabolism; E83.51 Hypocalcemia; D69.6 Thrombocytopenia, unspecified; I73.9 Peripheral vascular disease, unspecified; E03.9 Hypothyroidism, unspecified; N63.20 Unspecified lump in the left breast, unspecified quadrant; E16.2 Hypoglycemia, unspecified; E77.8 Other disorders of glycoprotein metabolism; B96.89 Other specified bacterial agents as the cause of diseases classified elsewhere; F03.90 Unspecified dementia, unspecified severity, without behavioral disturbance, psychotic disturbance, mood disturbance, and anxiety; Z66 Do not resuscitate; Z51.5 Encounter for palliative care; F41.1 Generalized anxiety disorder; Z79.51 Long term (current) use of inhaled steroids; Z78.9 Other specified health status; Z79.82 Long term (current) use of aspirin; Z78.1 Physical restraint status; Z85.028 Personal history of other malignant neoplasm of stomach; Z79.899 Other long term (current) drug therapy; Z87.11 Personal history of peptic ulcer disease; Z87.891 Personal history of nicotine dependence; Z87.440 Personal history of urinary (tract) infections

== ENCOUNTER 2018-01-10 00:51 | Inpatient (IN) | payer MEDICARE, OTHER ==
[2018-01-10 00:52] VITALS: PULSE 155; BMI 18.1
--- NOTE | 2018-01-10 02:00 | C.PDOC ---
History Of Present Illness 82 y/o female referred [facility] for recurring lower GI bleed. Patient states symptoms recurred today "I have had it on and off for a month." Patient also reports occasional abdominal pain, but is currently asymptomatic. Denies chest pain, dizziness, nausea, or vomiting. Patient also states he was supposed to have a colonoscopy "But they said they couldn't put me to sleep for it and I didn't want that." Patient is on chronic O2 use s/p recent admission for pneumonia, s/p EGD, c-diff colitis, rapid afib, and sepsis. referred FROM [place] FOR RECUR LGIB. PS SX RECUR TODAY "QUIANA HAD IT OFF AND ON FOR A MONTH". OCC ABD PAIN, NOW ASYMPT. DENIES CP, DIZZY, NV. PS WAS SUPPOSED TO HAVE A COLONOSCOPY "BUT THEY SAID THEY COULDN'T PUT ME TO SLEEP FOR IT AND I DIDN'T WANT THAT". CHRONIC O2 USE SP RECENT ADMISSION FOR pneumonia, s/p EGD, c-diff colitis, rapid afib, sepsis, EXAM NONTOXIC LUNGS CTA B/L NO W/R/R ABD NEG RECTAL +ACTIVE BRBPR REMAINDER NEG DNR/DNI Time Seen by Provider: 01/10/18 01:39 Chief Complaint (Nursing): Shortness Of Breath History Per: Patient History/Exam Limitations: no limitations Onset/Duration Of Symptoms: Hrs Current Symptoms Are (Timing): Still Present Number Of Bleeding Episodes: Unknown Amount of Blood Loss: Medium Associated Symptoms: denies: Nausea, Vomiting, Diarrhea Modifying Factors: None Recent travel outside of the [place]: No Past Medical History Reviewed: Historical Data, Nursing Documentation, Vital Signs Vital Signs: Last Vital Signs Temp 98.4 F 01/10/18 03:35 Pulse 87 01/10/18 04:05 Resp 18 01/10/18 04:05 BP 130/74 01/10/18 04:05 Pulse Ox 98 01/10/18 04:05 - Medical History PMH: Anxiety, Arthritis, CHF, COPD, Dementia, Emphysema, HTN, Hypothyroidism Surgical History: Coronary Stent - [facility] Procedures ANGIOPLASTY OF OTHER NON-CORONARY VESSEL(S) (01/22/15) ASSISTANCE WITH RESPIRATORY VENTILATION, >96 HRS, CPAP (12/15/17) EXCISION OF DUODENUM, ENDO, DIAGN (11/25/17) EXCISION OF STOMACH, ENDO, DIAGN (12/15/17) INSEJ LOD-IMUS-CJSEBLL PERIPHERAL NON-CORONARY VES STENT(S) (01/22/15) INSERTION OF INFUSION DEV INTO SUP VENA CAVA, PERC APPROACH (12/15/17) INSERTION OF TWO VASCULAR STENTS (01/22/15) INSPECTION OF LOWER INTESTINAL TRACT, ENDO (11/25/17) PROCEDURE ON TWO VESSELS (01/22/15) RADICAL EXCIS SKIN LES (10/29/12) RESPIRATORY VENTILATION, 24-96 CONSECUTIVE HOURS (11/25/17) Family History: States: Unknown Family Hx - Social History Hx Tobacco Use: No Hx Alcohol Use: No Hx Substance Use: No - Immunization History Hx Tetanus Toxoid Vaccination: Yes Hx Influenza Vaccination: Yes (04/2017) Hx Pneumococcal Vaccination: Yes (10/13/17) Review Of Systems Constitutional: Negative for: Fever, Chills Cardiovascular: Negative for: Chest Pain Gastrointestinal: Positive for: Other (Lower GI bleed). Negative for: Nausea, Vomiting, Abdominal Pain, Diarrhea Skin: Negative for: Rash Neurological: Negative for: Weakness, Numbness, Dizziness Physical Exam - Physical Exam Appears: Well, Non-toxic, No Acute Distress Skin: Normal Color, Warm, Dry Head: Atraumatic, Normacephalic Eye(s): bilateral: Normal Inspection, PERRL, EOMI Oral Mucosa: Moist Neck: Supple Chest: Symmetrical, No Tenderness Cardiovascular: Rhythm Regular, No Murmur Respiratory: Normal Breath Sounds (Clear to auscultation bilaterally), No Decreased Breath Sounds, No Rales, No Rhonchi, No Wheezing, Other (NARD) Gastrointestinal/Abdominal: Normal Exam, Soft, No Tenderness, No Distention Rectal: Other (Active bright red blood per rectum) Extremity: Normal ROM, No Deformity Extremity: Bilateral: Atraumatic, Normal Color And Temperature, Normal ROM Pulses: Left Radial: Normal, Right Radial: Normal Neurological/Psych: Oriented x3, Normal Speech, Other (No focal deficits ) Gait: Steady ED Course And Treatment - Laboratory Results Result Diagrams: 01/10/18 03:12 01/10/18 03:12 Interpretation Of Abnormal: NEW ANEMIA COMPARED TO PRIOR ECG: Interpreted By Me, Viewed By Me ECG Rhythm: Atrial Fibrillation (At 83 bpm ) - Other Rad CXR X-Ray: Interpreted by Me, Viewed By Me Interpretation: Unchanged from 01/05 Progress - Re-Evaluation Re-evaluation Note: 01/10/18 03:10 +HYPOGLY. EXAM UNCH FROM INITIAL, AO3 INTERACTIVE APPROPRIATE. VSS. LABS PENDING. WILL DOSE D50 01/10/18 03:54 d/w dr DORSEY AWARE OF ER FINDINGS WILL ADMIT - Data Reviewed Data Reviewed: Lab, Diagnostic imaging, EKG, Old records - Critical Care Citical Care: Excluding Proc Time Critical Care Time: 90 minutes - Continuity of Care Discussed patient case with:: Patient, PMD Medical Decision Making Medical Decision Making: Administered IV fluids. Ordered BBK, BG, CXR, blood work, Occult blood and urianlysis. CXR * Unchanged from 01/05 EKG * Afib at 83 bpm Disposition Counseled Patient/Family Regarding: Studies Performed, Diagnosis - Disposition Disposition: HOSPITALIZED Disposition Time: 03:55 Condition: STABLE - POA Present On Arrival: Poor Glycemic Control - Clinical Impression Clinical Impression: GIB (gastrointestinal bleeding), Hypokalemia, Hypoglycemia - Scribe Statement The provider has reviewed the documentation as recorded by the Scribjose Romano All medical record entries made by the Shaneibe were at my direction and personally dictated by me. I have reviewed the chart and agree that the record accurately reflects my personal performance of the history, physical exam, medical decision making, and the department course for this patient. I have also personally directed, reviewed, and agree with the discharge instructions and disposition. Decision To Admit - Pt Status Changed To: Hospital Disposition Of: Inpatient - Admit Certification Admit to Inpatient:: After my assessment, the patient will require hospitalization for at least two midnights. This is because of the severity of symptoms shown, intensity of services needed, and/or the medical risk in this patient being treated as an outpatient. - InPatient: Physician Admission Certification: I certify that this patient requires 2 or more midnights of care for the following reason:: SEE NOTE - . Bed Request Type: Telemetry Admitting Physician: Lex Dorsey Patient Diagnosis: GIB (gastrointestinal bleeding), Hypokalemia, Hypoglycemia
[2018-01-10] MEDS ORDERED: Sodium Chloride 0.9% 250 ML IV ONE ×2 (02:01→03:00)
[2018-01-10] MEDS ORDERED: Sodium Chloride 0.9% 1,000 ML ONE (02:32)
[2018-01-10 03:05] LABS: VENOUS BLOOD GAS BASE EXCESS -2.9 mmol/L (0.0-2.0); VENOUS BLOOD GAS PCO2 38 mmHg (40-60); VENOUS BLOOD GAS PO2 25 mm/Hg (30-55); VENOUS BLOOD PH 7.37 (7.32-7.43)
[2018-01-10] MEDS ORDERED: Dextrose 50% SYRINGE Inj (50 ml) IVP STA ×2 (03:10)
[2018-01-10] MEDS ORDERED: Dextrose 50% SYRINGE Inj (50 ml) ONE (03:14)
[2018-01-10 03:18] LABS: BASO # 0.1 K/uL (0.0-0.2); BASO % 1.4 % (0.0-2.0); EOS # 0.1 K/uL (0.0-0.7); EOS % 1.8 % (0.0-4.0); LYMPH # 0.7 K/uL (1.0-4.3); LYMPH % 11.7 % (20.0-40.0); MEAN CELL VOLUME 90.2 fL (81.0-99.0); MEAN CORPUSCULAR HEMOGLOBIN 30.3 pg (27.0-31.0); MEAN CORPUSCULAR HGB CONC 33.6 g/dL (33.0-37.0); MEAN PLATELET VOLUME 8.4 fL (7.2-11.7); MONO # 0.5 K/uL (0.0-0.8); MONO % 7.7 % (0.0-10.0); NEUT # 4.8 K/uL (1.8-7.0); NEUT % 77.4 % (50.0-75.0); NRBC % 0.1 % (0.0-2.0); RBC 2.09 Mil/uL (3.80-5.20); RED CELL DISTRIBUTION WIDTH 16.9 % (11.5-14.5); WHITE BLOOD COUNT 6.2 K/uL (4.8-10.8)
[2018-01-10 03:38] LABS: ALT/SGPT 29 U/L (9-52); AST/SGOT 23 U/L (14-36); BLOOD UREA NITROGEN 4 mg/dL (7-17); CALCIUM 7.1 mg/dl (8.6-10.4); GFR AFRICAN-AMERICAN > 60; GFR NON-AFRICAN AMERICAN > 60
[2018-01-10] MEDS ORDERED: Potassium Chloride 20 mEq/15 ml LIQ UD PO STA (03:43)
[2018-01-10 03:49] LABS: HEMOGLOBIN 6.3 g/dL (11.0-16.0)
[2018-01-10] MEDS ORDERED: Potassium Chloride 20 mEq/15 ml LIQ UD ONE (03:50)
[2018-01-10 03:51] LABS: INR 1.5; PROTHROMBIN TIME 16.8 SECONDS (9.7-12.2)
[2018-01-10] MEDS ORDERED: Vitamins A & D Oint UD Foilpak EXT PRN (04:03)
[2018-01-10] MEDS ORDERED: Dextrose 5%/0.45% NS 1,000 ML IV SCH (04:15)
[2018-01-10] MEDS ORDERED: Potassium Chloride 20 mEq ER Tab PO STA (05:36)
[2018-01-10] MEDS: Levothyroxine 100 MCG TAB PO SCH (06:53)
[2018-01-10] MEDS: Albuterol-Ipratrop 3 mg / 0.5 (3 ml) UD INH SCH ×3 (07:43→20:56)
--- NOTE | 2018-01-10 07:57 | RAD ---
Date of service: 01/10/2018 PROCEDURE: CHEST RADIOGRAPH, 1 VIEW HISTORY: MED CLEAR COMPARISON: Portable chest 01/05/2018. FINDINGS: LUNGS: Bibasilar airspace disease persists but is slightly diminished in the right base of right hemidiaphragm now partially identified. PLEURA: Small bilateral pleural effusions remain. CARDIOVASCULAR: Normal cardiac silhouette. No definite pulmonary vascular congestion. OSSEOUS STRUCTURES: No significant abnormalities. VISUALIZED UPPER ABDOMEN: Normal. OTHER FINDINGS: None. IMPRESSION: Improvement in right basilar airspace disease with bilateral pleural effusions and mild basilar airspace disease again evident nevertheless.
[2018-01-10] MEDS ORDERED: Fluticasone-Salmeterol 250-50mcg Diskus INH SCH (08:00)
[2018-01-10] MEDS: Cholestyramine 4 gm/Pkt UD PO SCH ×4 (10:21→22:04)
--- NOTE | 2018-01-10 13:10 | CP.PCM.CON ---
History of Present Illness - History of Present Illness History of Present Illness: GI Fellow PGY4, consult note. Kristin Shultz is an 82yo AAF who was recently discharged from complicated hospital course including C.Diff and GI bleeding now presenting with recurrent GI Bleed. Patient suffers from dementia and has difficulty giving history. [facility] She had EGD last admission that was normal. Hb was 10 five days ago and now less than 7. She is HDS and s/p 1 unit pRBCs. She denies n/v/abdominal pain. She complained of SOB, but this has improved. PMHx - see above. PSHx: Colonoscopy last month showed congested colonic mucosa and bleeding hemorrhoids. FMHx: unable to obtain SocHx: Unable to obtain. 12pt ROS completed and negative except for above. Past Patient History - Infectious Disease Hx of Infectious Diseases: None - Past Medical History & Family History Past Medical History?: Yes - Past Social History Smoking Status: Unknown If Ever Smoked - CARDIAC Hx Cardiac Disorders: Yes Hx Atrial Fibrillation: Yes Hx Congestive Heart Failure: Yes Hx Hypertension: Yes - PULMONARY Hx Respiratory Disorders: Yes Hx Chronic Obstructive Pulmonary Disease (COPD): Yes Hx Emphysema: Yes - NEUROLOGICAL Hx Neurological Disorder: Yes Hx Dementia: Yes - HEENT Hx HEENT Problems: No - RENAL Hx Chronic Kidney Disease: No - ENDOCRINE/METABOLIC Hx Endocrine Disorders: Yes Hx Hypothyroidism: Yes - HEMATOLOGICAL/ONCOLOGICAL Hx Blood Disorders: No Hx Blood Transfusions: No Hx Cancer: Yes ("STOMACH") - INTEGUMENTARY Hx Dermatological Problems: No - MUSCULOSKELETAL/RHEUMATOLOGICAL Hx Musculoskeletal Disorders: Yes Hx Arthritis: Yes Hx Falls: No - GASTROINTESTINAL Hx Gastrointestinal Disorders: No - GENITOURINARY/GYNECOLOGICAL Hx Genitourinary Disorders: No - PSYCHIATRIC Hx Psychophysiologic Disorder: Yes Hx Anxiety: Yes Hx Substance Use: No - SURGICAL HISTORY Hx Surgeries: Yes Hx Coronary Stent: Yes - ANESTHESIA Hx Anesthesia: Yes Hx Anesthesia Reactions: No Hx Malignant Hyperthermia: No Meds Allergies/Adverse Reactions: Allergies Allergy/AdvReac Type Severity Reaction Status Date / Time No Known Allergies Allergy Verified 01/10/18 01:16 - Medications Medications: Current Medications Acetaminophen (Tylenol 325mg Tab) 650 mg PO Q6 PRN PRN Reason: Pain, moderate (4-7) Albuterol/Ipratropium (Duoneb 3 Mg/0.5 Mg (3 Ml) Ud) 3 ml INH RQ6 [facility] Last Admin: 01/10/18 07:43 Dose: 3 ml Cholestyramine Resin (Questran) 4 gm PO QID [facility] Last Admin: 01/10/18 10:21 Dose: Not Given Diltiazem HCl (Cardizem) 30 mg PO Q6H [facility] Last Admin: 01/10/18 06:53 Dose: Not Given Dextrose/Sodium Chloride (Dextrose 5%/0.45% Ns 1000 Ml) 1,000 mls @ 70 mls/hr IV .[id number] [facility] Last Admin: 01/10/18 06:51 Dose: Not Given Levothyroxine Sodium (Synthroid) 100 mcg PO 0630 [facility] Last Admin: 01/10/18 06:53 Dose: 100 mcg Lorazepam (Ativan) 0.5 mg PO BID [facility] Last Admin: 01/10/18 10:24 Dose: 0.5 mg Pantoprazole Sodium (Protonix Inj) 40 mg IVP DAILY [facility] Last Admin: 01/10/18 10:15 Dose: 40 mg Rosuvastatin Calcium (Crestor) 5 mg PO HS [facility] Vitamin A (Vitamin A & D Oint Ud Foilpak) 1 ea EXT Q8 PRN PRN Reason: Dry SKIN Physical Exam - Constitutional Appears: Non-toxic, No Acute Distress, Cachectic - Head Exam Head Exam: ATRAUMATIC, NORMAL INSPECTION - Eye Exam Eye Exam: EOMI, Normal appearance - ENT Exam ENT Exam: Mucous Membranes Moist, Normal Exam - Respiratory Exam Respiratory Exam: Clear to Auscultation Bilateral, NORMAL BREATHING PATTERN. absent: Wheezes - Cardiovascular Exam Cardiovascular Exam: REGULAR RHYTHM, +S1, +S2 - GI/Abdominal Exam GI & Abdominal Exam: Normal Bowel Sounds, Soft. absent: Distended, Tenderness - Rectal Exam Rectal Exam: Deferred - Extremities Exam Extremities exam: Positive for: normal inspection - Neurological Exam Neurological exam: Alert, CN II-XII Intact, Oriented x3 - Psychiatric Exam Psychiatric exam: Normal Affect, Normal Mood - Skin Skin Exam: Dry, Intact Results - Vital Signs Recent Vital Signs: Last Vital Signs Temp 98 F 01/10/18 10:11 Pulse 93 H 01/10/18 10:11 Resp 18 01/10/18 10:11 BP 114/69 01/10/18 11:15 Pulse Ox 96 01/10/18 07:00 - Labs Result Diagrams: 01/10/18 03:12 01/10/18 03:12 Labs: Laboratory Results - last 24 hr 01/10/18 01/10/18 01/10/18 02:56 03:10 03:12 WBC 6.2 RBC 2.09 L Hgb 6.3 L* D Hct 18.8 L MCV 90.2 MCH 30.3 MCHC 33.6 RDW 16.9 H Plt Count 259 D MPV 8.4 Neut % (Auto) 77.4 H Lymph % (Auto) 11.7 L [place] % (Auto) 7.7 Eos % (Auto) 1.8 Baso % (Auto) 1.4 Neut # (Auto) 4.8 Lymph # (Auto) 0.7 L [place] # (Auto) 0.5 Eos # (Auto) 0.1 Baso # (Auto) 0.1 PT INR APTT pO2 25 L VBG pH 7.37 VBG pCO2 38 L VBG HCO3 21.2 VBG Total CO2 23.2 VBG O2 Sat (Calc) 46.5 VBG Base Excess -2.9 L VBG Potassium 2.2 L* Sodium 141.0 Chloride 114.0 H Glucose 35 L* D Lactate 0.7 Crit Value 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 Crit Value Called By Ingrid oden rt Crit Value Read Back Y Blood Gas Notified Time 305 Potassium Carbon Dioxide Anion Gap BUN Creatinine Est GFR ( Amer) Est GFR (Non-Af Amer) POC Glucose (mg/dL) 26 L* Random Glucose Calcium Total Bilirubin AST ALT Alkaline Phosphatase Total Protein Albumin Globulin Albumin/Globulin Ratio Venous Blood Potassium 2.2 L* Blood Type Antibody Screen 01/10/18 01/10/18 01/10/18 03:12 03:12 03:52 WBC RBC Hgb Hct MCV MCH MCHC RDW Plt Count MPV Neut % (Auto) Lymph % (Auto) [place] % (Auto) Eos % (Auto) Baso % (Auto) Neut # (Auto) Lymph # (Auto) [place] # (Auto) Eos # (Auto) Baso # (Auto) PT 16.8 H INR 1.5 APTT 33 pO2 VBG pH VBG pCO2 VBG HCO3 VBG Total CO2 VBG O2 Sat (Calc) VBG Base Excess VBG Potassium Sodium 135 Chloride 105 Glucose Lactate Crit Value Called To Crit Value Called By Crit Value Read Back Blood Gas Notified Time Potassium 2.6 L Carbon Dioxide 25 Anion Gap 8 L BUN 4 L Creatinine 0.4 L Est GFR ( Amer) > 60 Est GFR (Non-Af Amer) > 60 POC Glucose (mg/dL) Random Glucose 42 L Calcium 7.1 L Total Bilirubin 0.2 AST 23 ALT 29 Alkaline Phosphatase 64 Total Protein 3.9 L Albumin 2.0 L Globulin 2.0 L Albumin/Globulin Ratio 1.0 Venous Blood Potassium Blood Type O POSITIVE Antibody Screen Negative 01/10/18 01/10/18 04:01 06:25 WBC RBC Hgb Hct MCV MCH MCHC RDW Plt Count MPV Neut % (Auto) Lymph % (Auto) [place] % (Auto) Eos % (Auto) Baso % (Auto) Neut # (Auto) Lymph # (Auto) [place] # (Auto) Eos # (Auto) Baso # (Auto) PT INR APTT pO2 VBG pH VBG pCO2 VBG HCO3 VBG Total CO2 VBG O2 Sat (Calc) VBG Base Excess VBG Potassium Sodium Chloride Glucose Lactate Crit Value Called To Crit Value Called By Crit Value Read Back Blood Gas Notified Time Potassium Carbon Dioxide Anion Gap BUN Creatinine Est GFR ( Amer) Est GFR (Non-Af Amer) POC Glucose (mg/dL) 237 H 140 H Random Glucose Calcium Total Bilirubin AST ALT Alkaline Phosphatase Total Protein Albumin Globulin Albumin/Globulin Ratio Venous Blood Potassium Blood Type Antibody Screen Assessment & Plan - Assessment and Plan (Free Text) Assessment: 82F with hx of COPD, gastritis, duodenal ulcers and CDiff with signs of gi bleed #Acute blood loss anemia due to GI bleed #Duodenal ulcer #Gastritis #COPD #HTN #Anxiety #Sacral ulcer #Severely Malnourished #Recent C. Difficile infection Plan: -Continue supportive care -Bleeding scan noted no active bleeding. -EGD 12/26/17 benign w/out evidence for cause of active rectal bleeding -Continue PPI IV daily -Follow Hb closely, transfuse pRBCs for Hb < 7. -Bowel prep for colonoscopy tomorrow. -NPO after midnight. - Date & Time Date: 01/10/18 Time: 14:15
--- NOTE | 2018-01-10 13:55 | NM ---
Date of service: 01/10/2018 PROCEDURE: Nuclear medicine gastrointestinal bleeding scan. HISTORY: GI bleeding COMPARISON: None available. TECHNIQUE: 4ccof patient blood was withdrawn and mixed with 19.6mCi of technetium ultra tagged. Images of the abdomen and pelvis were obtained in the anterior and posterior projection at 1 min intervals over a period of 40 minutes. FINDINGS: No abnormal extravasation of tracer was observed throughout the exam to indicate active bleeding within or outside the gastrointestinal tract. Physiologic activity was seen in the heart, liver, spleen and blood vessels. IMPRESSION: No evidence of active gastrointestinal bleeding.
[2018-01-10] MEDS ORDERED: Peg-Electrolyte Oral Soln 4L (Golytely) PO ONE (14:08)
[2018-01-10] MEDS ORDERED: Glucagon Recombinant 1 mg Inj IM PRN (16:56)
[2018-01-10] MEDS ORDERED: Bisacodyl 5mg EC Tab PO ONE (17:00)
[2018-01-10] MEDS: Dextrose 50% SYRINGE Inj (50 ml) IVP PRN (17:03)
[2018-01-10] MEDS: Potassium Chloride 20 MEQ in Dextrose 5%/0.45% NS 1,000 ML IV SCH (18:24)
[2018-01-10 20:48] LABS: ALB/GLOB RATIO 1.1 (1.0-2.1); ALBUMIN 2.2 g/dL (3.5-5.0); ALT/SGPT 25 U/L (9-52); AST/SGOT 24 U/L (14-36); BLOOD UREA NITROGEN 3 mg/dL (7-17); GFR AFRICAN-AMERICAN > 60; GFR NON-AFRICAN AMERICAN > 60
[2018-01-10 21:37] LABS: MEAN CORPUSCULAR HEMOGLOBIN 30.6 pg (27.0-31.0); MEAN CORPUSCULAR HGB CONC 35.2 g/dL (33.0-37.0); MEAN PLATELET VOLUME 7.9 fL (7.2-11.7); RBC 3.39 Mil/uL (3.80-5.20); RED CELL DISTRIBUTION WIDTH 15.8 % (11.5-14.5); WHITE BLOOD COUNT 8.1 K/uL (4.8-10.8)
[2018-01-10 21:39] LABS: HEMOGLOBIN 10.4 g/dL (11.0-16.0); MEAN CELL VOLUME 86.9 fL (81.0-99.0)
--- NOTE | 2018-01-10 23:21 | CP.PCM.HP ---
History of Present Illness - History of Present Illness History of Present Illness: CC: rectal bleed HPI: Kristin Shultz is an 82yo AAF with h/o COPD, HTN, PVD, recently treated for C.Diff colitis who was recently discharged to [facility] from complicated hospital course including C.Diff and GI bleeding now presenting with recurrent GI Bleed. Patient suffers from dementia and has difficulty giving history. Patient has been having dark stool at her [facility]. She had EGD last admission that was normal. Hb was 10 five days ago and now less than 7. She is HDS and s/p 1 unit pRBCs. She denies n/v/abdominal pain. She complained of SOB, but this has improved. PMHx - see above. PSHx: Colonoscopy last month showed congested colonic mucosa and bleeding hemorrhoids. FMHx: unable to obtain SocHx: Unable to obtain. Present on Admission - Present on Admission Any Indicators Present on Admission: Yes Review of Systems - Review of Systems Systems not reviewed;Unavailable: Acuity of Condition - Constitutional Constitutional: Weakness - EENT Eyes: absent: As Per HPI, Blind Spots, Blurred Vision, Change in Vision, Decreased Night Vision, Diplopia, Discharge, Dry Eye, Exophthalmos, Floaters, Irritation, Itchy Eyes, Loss of Peripheral Vision, Pain, Photophobia, Requires Corrective Lenses, Sees Flashes, Spots in Vision, Tunnel Vision, Other Visual Disturbances, Loss of Vision, Other Ears: absent: As Per HPI, Decreased Hearing, Ear Discharge, Ear Pain, Tinnitus, Abnormal Hearing, Disequilibrium, Dizziness, Other Nose/Mouth/Throat: absent: As Per HPI, Epistaxis, Nasal Congestion, Nasal Discharge, Nasal Obstruction, Nasal Trauma, Nose Pain, Post Nasal Drip, Sinus Pain, Sinus Pressure, Bleeding Gums, Change in Voice, Dental Pain, Dry Mouth, Dysphagia, Halitosis, Hoarsness, Lip Swelling, Mouth Lesions, Mouth Pain, Odynophagia, Sore Throat, Throat Swelling, Tongue Swelling, Facial Pain, Neck Pain, Neck Mass, Other - Cardiovascular Cardiovascular: absent: As Per HPI, Acrocyanosis, Chest Pain, Chest Pain at Rest , Chest Pain with Activity, Claudication, Diaphoresis, Dyspnea, Dyspnea on Exertion, Edema, Irregular Heart Rhythm, Pain Radiating to Arm/Neck/Jaw, Leg Edema, Leg Ulcers, Lightheadedness, Orthopnea, Palpitations, Paroxysmal Nocturnal Dyspnea, Pedal Edema, Radiating Pain, Rapid Heart Rate, Slow Heart Rate, Syncope, Other - Gastrointestinal Gastrointestinal: Abdominal Pain, Loose Stools, Melena, Temesmus - Genitourinary Genitourinary: absent: As Per HPI, Change in Urinary Stream, Difficulty Urinating, Dysuria, Flank Pain, Hematuria, Pyuria, Nocturia, Urinary Incontinence, Urinary Frequency, Urinary Hesitance, Urinary Urgency, Voiding Freq/Small Amts, Freq UTI, Hx Renal/Bladder Calculi, Hx /Renal Surgery, Bladder Distension, Other Past Patient History - Infectious Disease Hx of Infectious Diseases: None - Past Medical History & Family History Past Medical History?: Yes - Past Social History Smoking Status: Unknown If Ever Smoked - CARDIAC Hx Cardiac Disorders: Yes Hx Atrial Fibrillation: Yes Hx Congestive Heart Failure: Yes Hx Hypertension: Yes - PULMONARY Hx Respiratory Disorders: Yes Hx Chronic Obstructive Pulmonary Disease (COPD): Yes Hx Emphysema: Yes - NEUROLOGICAL Hx Neurological Disorder: Yes Hx Dementia: Yes - HEENT Hx HEENT Problems: No - RENAL Hx Chronic Kidney Disease: No - ENDOCRINE/METABOLIC Hx Endocrine Disorders: Yes Hx Hypothyroidism: Yes - HEMATOLOGICAL/ONCOLOGICAL Hx Blood Disorders: No Hx Blood Transfusions: No Hx Cancer: Yes ("STOMACH") - INTEGUMENTARY Hx Dermatological Problems: No - MUSCULOSKELETAL/RHEUMATOLOGICAL Hx Musculoskeletal Disorders: Yes Hx Arthritis: Yes Hx Falls: No - GASTROINTESTINAL Hx Gastrointestinal Disorders: No - GENITOURINARY/GYNECOLOGICAL Hx Genitourinary Disorders: No - PSYCHIATRIC Hx Psychophysiologic Disorder: Yes Hx Anxiety: Yes Hx Substance Use: No - SURGICAL HISTORY Hx Surgeries: Yes Hx Coronary Stent: Yes - ANESTHESIA Hx Anesthesia: Yes Hx Anesthesia Reactions: No Hx Malignant Hyperthermia: No Meds Allergies/Adverse Reactions: Allergies Allergy/AdvReac Type Severity Reaction Status Date / Time No Known Allergies Allergy Verified 01/10/18 01:16 Physical Exam - Constitutional Appears: No Acute Distress, Cachectic, Chronically Ill - Eye Exam Eye Exam: EOMI, Normal appearance, PERRL Pupil Exam: NORMAL ACCOMODATION, PERRL - ENT Exam ENT Exam: Mucous Membranes Moist, Normal Exam - Respiratory Exam Respiratory Exam: Decreased Breath Sounds, NORMAL BREATHING PATTERN - Cardiovascular Exam Cardiovascular Exam: REGULAR RHYTHM - GI/Abdominal Exam GI & Abdominal Exam: Hyperactive Bowel Sounds, Normal Bowel Sounds, Soft, Tenderness Additional comments: diffuse mild abdominal discomfort - Rectal Exam Rectal Exam: Bloody Stool - Extremities Exam Additional comments: popliteal arterial pulses are feeble - Skin Skin Exam: Pallor Results - Vital Signs Recent Vital Signs: Last Vital Signs Temp 97.6 F 01/10/18 17:45 Pulse 100 H 01/10/18 17:45 Resp 20 01/10/18 17:45 BP 100/65 01/10/18 17:45 Pulse Ox 95 01/10/18 15:00 - Labs Result Diagrams: 01/10/18 21:30 01/10/18 19:30 Labs: Laboratory Results - last 24 hr 01/10/18 01/10/18 01/10/18 02:56 03:10 03:12 WBC 6.2 RBC 2.09 L Hgb 6.3 L* D Hct 18.8 L MCV 90.2 MCH 30.3 MCHC 33.6 RDW 16.9 H Plt Count 259 D MPV 8.4 Neut % (Auto) 77.4 H Lymph % (Auto) 11.7 L [place] % (Auto) 7.7 Eos % (Auto) 1.8 Baso % (Auto) 1.4 Neut # (Auto) 4.8 Lymph # (Auto) 0.7 L [place] # (Auto) 0.5 Eos # (Auto) 0.1 Baso # (Auto) 0.1 PT INR APTT pO2 25 L VBG pH 7.37 VBG pCO2 38 L VBG HCO3 21.2 VBG Total CO2 23.2 VBG O2 Sat (Calc) 46.5 VBG Base Excess -2.9 L VBG Potassium 2.2 L* Sodium 141.0 Chloride 114.0 H Glucose 35 L* D Lactate 0.7 Crit Value Called To Roseline aguilera skidder Crit Value Called By Ingrid oden rt Crit Value Read Back Y Blood Gas Notified Time 305 Potassium Carbon Dioxide Anion Gap BUN Creatinine Est GFR ( Amer) Est GFR (Non-Af Amer) POC Glucose (mg/dL) 26 L* Random Glucose Calcium Magnesium Total Bilirubin AST ALT Alkaline Phosphatase Total Protein Albumin Globulin Albumin/Globulin Ratio Venous Blood Potassium 2.2 L* Blood Type Antibody Screen 01/10/18 01/10/18 01/10/18 03:12 03:12 03:52 WBC RBC Hgb Hct MCV MCH MCHC RDW Plt Count MPV Neut % (Auto) Lymph % (Auto) [place] % (Auto) Eos % (Auto) Baso % (Auto) Neut # (Auto) Lymph # (Auto) [place] # (Auto) Eos # (Auto) Baso # (Auto) PT 16.8 H INR 1.5 APTT 33 pO2 VBG pH VBG pCO2 VBG HCO3 VBG Total CO2 VBG O2 Sat (Calc) VBG Base Excess VBG Potassium Sodium 135 Chloride 105 Glucose Lactate Crit Value Called To Crit Value Called By Crit Value Read Back Blood Gas Notified Time Potassium 2.6 L Carbon Dioxide 25 Anion Gap 8 L BUN 4 L Creatinine 0.4 L Est GFR ( Amer) > 60 Est GFR (Non-Af Amer) > 60 POC Glucose (mg/dL) Random Glucose 42 L Calcium 7.1 L Magnesium Total Bilirubin 0.2 AST 23 ALT 29 Alkaline Phosphatase 64 Total Protein 3.9 L Albumin 2.0 L Globulin 2.0 L Albumin/Globulin Ratio 1.0 Venous Blood Potassium Blood Type O POSITIVE Antibody Screen Negative 01/10/18 01/10/18 01/10/18 04:01 06:25 16:51 WBC RBC Hgb Hct MCV MCH MCHC RDW Plt Count MPV Neut % (Auto) Lymph % (Auto) [place] % (Auto) Eos % (Auto) Baso % (Auto) Neut # (Auto) Lymph # (Auto) [place] # (Auto) Eos # (Auto) Baso # (Auto) PT INR APTT pO2 VBG pH VBG pCO2 VBG HCO3 VBG Total CO2 VBG O2 Sat (Calc) VBG Base Excess VBG Potassium Sodium Chloride Glucose Lactate Crit Value Called To Crit Value Called By Crit Value Read Back Blood Gas Notified Time Potassium Carbon Dioxide Anion Gap BUN Creatinine Est GFR ( Amer) Est GFR (Non-Af Amer) POC Glucose (mg/dL) 237 H 140 H 34 L* Random Glucose Calcium Magnesium Total Bilirubin AST ALT Alkaline Phosphatase Total Protein Albumin Globulin Albumin/Globulin Ratio Venous Blood Potassium Blood Type Antibody Screen 01/10/18 01/10/18 01/10/18 16:54 17:22 19:30 WBC RBC Hgb Hct MCV MCH MCHC RDW Plt Count MPV Neut % (Auto) Lymph % (Auto) [place] % (Auto) Eos % (Auto) Baso % (Auto) Neut # (Auto) Lymph # (Auto) [place] # (Auto) Eos # (Auto) Baso # (Auto) PT INR APTT pO2 VBG pH VBG pCO2 VBG HCO3 VBG Total CO2 VBG O2 Sat (Calc) VBG Base Excess VBG Potassium Sodium 134 Chloride 102 Glucose Lactate Crit Value Called To Crit Value Called By Crit Value Read Back Blood Gas Notified Time Potassium 2.8 L Carbon Dioxide 25 Anion Gap 10 BUN 3 L Creatinine 0.5 L Est GFR ( Amer) > 60 Est GFR (Non-Af Amer) > 60 POC Glucose (mg/dL) 37 L* 152 H Random Glucose 114 H Calcium 7.0 L Magnesium 1.2 L Total Bilirubin 0.5 AST 24 ALT 25 Alkaline Phosphatase 73 Total Protein 4.1 L Albumin 2.2 L Globulin 1.9 L Albumin/Globulin Ratio 1.1 Venous Blood Potassium Blood Type Antibody Screen 01/10/18 01/10/18 21:30 22:19 WBC 8.1 RBC 3.39 L Hgb 10.4 L D Hct 29.4 L MCV 86.9 D MCH 30.6 MCHC 35.2 RDW 15.8 H Plt Count 287 MPV 7.9 Neut % (Auto) Lymph % (Auto) [place] % (Auto) Eos % (Auto) Baso % (Auto) Neut # (Auto) Lymph # (Auto) [place] # (Auto) Eos # (Auto) Baso # (Auto) PT INR APTT pO2 VBG pH VBG pCO2 VBG HCO3 VBG Total CO2 VBG O2 Sat (Calc) VBG Base Excess VBG Potassium Sodium Chloride Glucose Lactate Crit Value Called To Crit Value Called By Crit Value Read Back Blood Gas Notified Time Potassium Carbon Dioxide Anion Gap BUN Creatinine Est GFR ( Amer) Est GFR (Non-Af Amer) POC Glucose (mg/dL) 90 Random Glucose Calcium Magnesium Total Bilirubin AST ALT Alkaline Phosphatase Total Protein Albumin Globulin Albumin/Globulin Ratio Venous Blood Potassium Blood Type Antibody Screen Assessment & Plan (1) GIB (gastrointestinal bleeding) Status: Acute (2) Hypokalemia Status: Acute (3) Anxiety Status: Acute (4) C. difficile colitis Status: Acute (5) COPD (chronic obstructive pulmonary disease) Status: Acute (6) Dehydration Status: Acute (7) HTN (hypertension) Status: Acute (8) PAD (peripheral artery disease) Status: Acute
[2018-01-11] MEDS: Albuterol-Ipratrop 3 mg / 0.5 (3 ml) UD INH SCH ×4 (01:08→19:24)
[2018-01-11] MEDS: Levothyroxine 100 MCG TAB PO SCH ×2 (06:37→07:30)
--- NOTE | 2018-01-11 07:02 | CP.PCM.PN ---
Subjective - Date & Time of Evaluation Date of Evaluation: 01/11/18 Time of Evaluation: 07:00 - Subjective Subjective: GI Fellow PGY4, progress note. Patient seen and examined. Tolerated bowel prep. Continue clear liquid diet. Colonoscopy tomorrow. Need consent from Srikanth DURAN. s/p 2 units RBCs with good Hb response. Unable to complete 12pt ROS due to confusion. Objective - Vital Signs/Intake and Output Vital Signs (last 24 hours): Temp Pulse Resp BP Pulse Ox 97.9 F 89 20 102/70 99 01/11/18 04:00 01/11/18 06:04 01/11/18 06:04 01/11/18 06:04 01/11/18 06:04 Intake and Output: 01/11/18 01/11/18 06:59 18:59 Intake Total 379 Output Total 3 Balance 376 - Medications Medications: Current Medications Acetaminophen (Tylenol 325mg Tab) 650 mg PO Q6 PRN PRN Reason: Pain, moderate (4-7) Last Admin: 01/10/18 23:15 Dose: 650 mg Albuterol/Ipratropium (Duoneb 3 Mg/0.5 Mg (3 Ml) Ud) 3 ml INH RQ6 [facility] Last Admin: 01/11/18 01:08 Dose: 3 ml Cholestyramine Resin (Questran) 4 gm PO QID [facility] Last Admin: 01/10/18 22:04 Dose: Not Given Dextrose (Dextrose 50% Inj) 0 ml IVP .STAT PRN; Protocol PRN Reason: Hypoglycemia Protocol Last Admin: 01/10/18 17:03 Dose: 50 ml Dextrose (Glutose 15) 0 gm PO .ONCE PRN; Protocol PRN Reason: Hypoglycemia Protocol Diltiazem HCl (Cardizem) 30 mg PO Q6H [facility] Last Admin: 01/11/18 06:06 Dose: Not Given Glucagon (Glucagen Diagnostic Kit) 0 mg IM .STAT PRN; Protocol PRN Reason: Hypoglycemia Protocol Dextrose (Dextrose 5% In Water 1000 Ml) 1,000 mls @ 0 mls/hr IV .Q0M PRN; Protocol; Per Protocol PRN Reason: Hypoglycemia Protocol Potassium Chloride 20 meq/ (Dextrose/Sodium Chloride) 1,010 mls @ 70 mls/hr IV .[id number] [facility] Last Admin: 01/10/18 18:24 Dose: 70 mls/hr Levothyroxine Sodium (Synthroid) 100 mcg PO 0630 [facility] Last Admin: 01/11/18 06:37 Dose: Not Given Lorazepam (Ativan) 0.5 mg PO BID [facility] Last Admin: 01/10/18 22:15 Dose: 0.5 mg Pantoprazole Sodium (Protonix Inj) 40 mg IVP DAILY [facility] Last Admin: 01/10/18 10:15 Dose: 40 mg Rosuvastatin Calcium (Crestor) 5 mg PO HS [facility] Last Admin: 01/10/18 22:15 Dose: 5 mg Vitamin A (Vitamin A & D Oint Ud Foilpak) 1 ea EXT Q8 PRN PRN Reason: Dry SKIN - Labs Labs: 01/10/18 21:30 01/10/18 19:30 PT 16.8 SECONDS (9.7-12.2) H 01/10/18 03:12 INR 1.5 01/10/18 03:12 APTT 33 SECONDS (21-34) 01/10/18 03:12 - Constitutional Appears: Non-toxic, No Acute Distress, Confused, Chronically Ill - Head Exam Head Exam: ATRAUMATIC, NORMAL INSPECTION - Eye Exam Eye Exam: EOMI, Normal appearance - ENT Exam ENT Exam: Mucous Membranes Moist, Normal Exam - Respiratory Exam Respiratory Exam: Clear to Ausculation Bilateral, NORMAL BREATHING PATTERN. absent: Wheezes - Cardiovascular Exam Cardiovascular Exam: REGULAR RHYTHM, +S1, +S2 - GI/Abdominal Exam GI & Abdominal Exam: Soft, Normal Bowel Sounds. absent: Tenderness - Extremities Exam Extremities Exam: Normal Inspection - Neurological Exam Neurological Exam: Alert, Awake - Psychiatric Exam Psychiatric exam: Normal Affect, Normal Mood - Skin Skin Exam: Dry, Normal Color Assessment and Plan - Assessment and Plan (Free Text) Assessment: 82F with hx of COPD, gastritis, duodenal ulcers and CDiff with signs of gi bleed #Acute blood loss anemia due to GI bleed #Duodenal ulcer #Gastritis #COPD #HTN #Anxiety #Sacral ulcer #Severely Malnourished #Recent C. Difficile infection Plan: -Continue supportive care -Bleeding scan noted no active bleeding. -EGD 12/26/17 benign w/out evidence for cause of active rectal bleeding -Continue PPI IV daily -Follow Hb closely, transfuse pRBCs for Hb < 7. -Bowel prep completed for colonoscopy 7/27/18. Clear liquid diet for now. -NPO after midnight.
[2018-01-11 07:25] LABS: BASO # 0.1 K/uL (0.0-0.2); BASO % 1.2 % (0.0-2.0); EOS # 0.1 K/uL (0.0-0.7); EOS % 1.4 % (0.0-4.0); HEMOGLOBIN 11.3 g/dL (11.0-16.0); LYMPH # 0.7 K/uL (1.0-4.3); LYMPH % 9.7 % (20.0-40.0); MEAN CELL VOLUME 87.3 fL (81.0-99.0); MEAN CORPUSCULAR HEMOGLOBIN 30.7 pg (27.0-31.0); MEAN CORPUSCULAR HGB CONC 35.2 g/dL (33.0-37.0); MEAN PLATELET VOLUME 8.1 fL (7.2-11.7); MONO # 0.5 K/uL (0.0-0.8); MONO % 6.5 % (0.0-10.0); NEUT # 6.3 K/uL (1.8-7.0); NEUT % 81.2 % (50.0-75.0); NRBC % 0.4 % (0.0-2.0); PLATELET COUNT 333 K/uL (130-400); RBC 3.66 Mil/uL (3.80-5.20); WHITE BLOOD COUNT 7.7 K/uL (4.8-10.8)
[2018-01-11 07:42] LABS: ALB/GLOB RATIO 1.1 (1.0-2.1); ALBUMIN 2.2 g/dL (3.5-5.0); ALT/SGPT 30 U/L (9-52); AST/SGOT 25 U/L (14-36); BLOOD UREA NITROGEN 2 mg/dL (7-17); CALCIUM 6.8 mg/dl (8.6-10.4); GFR AFRICAN-AMERICAN > 60; GFR NON-AFRICAN AMERICAN > 60
[2018-01-11 08:46] LABS: EOSINOPHIL 1 % (0-4); LYMPHOCYTE 10 % (20-40); MONOCYTE 11 % (0-10); NEUTROPHIL 78 % (50-75); PLATELET ESTIMATE NORMAL (NORMAL); TOTAL CELLS COUNTED 100
[2018-01-11 08:47] LABS: ANISOCYTOSIS SLIGHT; HYPOCHROMIC SLIGHT; POLYCHROMIC SLIGHT
[2018-01-11] MEDS: Potassium Chloride 20 MEQ in Dextrose 5%/0.45% NS 1,000 ML IV SCH ×2 (11:02→21:57)
[2018-01-11] MEDS: Cholestyramine 4 gm/Pkt UD PO SCH ×4 (11:03→21:59)
--- NOTE | 2018-01-11 11:36 | CARD ---
APPROVED REPORT Date of service: 01/10/2018 EKG Measurement Heart [id number] <Conclusion> Sinus rhythm with premature atrial complexes Low voltage QRS Right bundle branch block Left anterior fascicular block Bifascicular block Abnormal ECG
[2018-01-11 16:40] LABS: HEMOGLOBIN 9.8 g/dL (11.0-16.0); MEAN CELL VOLUME 86.1 fL (81.0-99.0); MEAN CORPUSCULAR HGB CONC 34.8 g/dL (33.0-37.0); MEAN PLATELET VOLUME 7.6 fL (7.2-11.7); RBC 3.26 Mil/uL (3.80-5.20); RED CELL DISTRIBUTION WIDTH 16.4 % (11.5-14.5); WHITE BLOOD COUNT 7.3 K/uL (4.8-10.8)
--- NOTE | 2018-01-11 23:40 | CP.PCM.PN ---
Subjective - Date & Time of Evaluation Date of Evaluation: 01/11/18 Time of Evaluation: 17:00 - Subjective Subjective: Pt seen and examined at bedside Objective - Vital Signs/Intake and Output Vital Signs (last 24 hours): Temp Pulse Resp BP Pulse Ox 97.7 F 93 H 18 104/67 95 01/11/18 15:00 01/11/18 16:00 01/11/18 15:00 01/11/18 15:00 01/11/18 15:00 Intake and Output: 01/11/18 01/12/18 18:59 06:59 Intake Total 860 880 Output Total 1 Balance 860 879 - Medications Medications: Current Medications Acetaminophen (Tylenol 325mg Tab) 650 mg PO Q6 PRN PRN Reason: Pain, moderate (4-7) Last Admin: 01/10/18 23:15 Dose: 650 mg Albuterol/Ipratropium (Duoneb 3 Mg/0.5 Mg (3 Ml) Ud) 3 ml INH RQ6 [facility] Last Admin: 01/11/18 19:24 Dose: 3 ml Cholestyramine Resin (Questran) 4 gm PO QID [facility] Last Admin: 01/11/18 21:59 Dose: Not Given Dextrose (Dextrose 50% Inj) 0 ml IVP .STAT PRN; Protocol PRN Reason: Hypoglycemia Protocol Last Admin: 01/10/18 17:03 Dose: 50 ml Dextrose (Glutose 15) 0 gm PO .ONCE PRN; Protocol PRN Reason: Hypoglycemia Protocol Diltiazem HCl (Cardizem) 30 mg PO Q6H [facility] Last Admin: 01/11/18 18:20 Dose: Not Given Glucagon (Glucagen Diagnostic Kit) 0 mg IM .STAT PRN; Protocol PRN Reason: Hypoglycemia Protocol Dextrose (Dextrose 5% In Water 1000 Ml) 1,000 mls @ 0 mls/hr IV .Q0M PRN; Protocol; Per Protocol PRN Reason: Hypoglycemia Protocol Potassium Chloride 20 meq/ (Dextrose/Sodium Chloride) 1,010 mls @ 70 mls/hr IV .[id number] [facility] Last Admin: 01/11/18 21:57 Dose: Not Given Levothyroxine Sodium (Synthroid) 100 mcg PO 0630 [facility] Last Admin: 01/11/18 07:30 Dose: 100 mcg Lorazepam (Ativan) 0.5 mg PO BID [facility] Last Admin: 01/11/18 18:20 Dose: 0.5 mg Pantoprazole Sodium (Protonix Inj) 40 mg IVP DAILY [facility] Last Admin: 01/11/18 11:03 Dose: 40 mg Rosuvastatin Calcium (Crestor) 5 mg PO HS [facility] Last Admin: 01/11/18 21:59 Dose: 5 mg Vitamin A (Vitamin A & D Oint Ud Foilpak) 1 ea EXT Q8 PRN PRN Reason: Dry SKIN - Labs Labs: 01/11/18 16:34 01/11/18 07:15 PT 16.8 SECONDS (9.7-12.2) H 01/10/18 03:12 INR 1.5 01/10/18 03:12 APTT 33 SECONDS (21-34) 01/10/18 03:12 Assessment and Plan (1) GIB (gastrointestinal bleeding) Status: Acute (2) Hypokalemia Status: Acute (3) Anxiety Status: Acute (4) C. difficile colitis Status: Acute (5) COPD (chronic obstructive pulmonary disease) Status: Acute (6) Dehydration Status: Acute (7) HTN (hypertension) Status: Acute (8) PAD (peripheral artery disease) Status: Acute
[2018-01-12] MEDS: Albuterol-Ipratrop 3 mg / 0.5 (3 ml) UD INH SCH ×4 (01:24→20:13)
[2018-01-12] MEDS: Dextrose 50% SYRINGE Inj (50 ml) IVP PRN ×2 (02:45→21:57)
[2018-01-12] MEDS: Potassium Chloride 20 MEQ in Dextrose 5%/0.45% NS 1,000 ML IV SCH ×3 (02:48→22:47)
[2018-01-12] MEDS: Levothyroxine 100 MCG TAB PO SCH (06:11)
[2018-01-12 07:11] LABS: HEMOGLOBIN 10.4 g/dL (11.0-16.0); MEAN CELL VOLUME 87.3 fL (81.0-99.0); MEAN CORPUSCULAR HEMOGLOBIN 30.2 pg (27.0-31.0); MEAN CORPUSCULAR HGB CONC 34.6 g/dL (33.0-37.0); MEAN PLATELET VOLUME 7.2 fL (7.2-11.7); PLATELET COUNT 374 K/uL (130-400); RBC 3.45 Mil/uL (3.80-5.20); RED CELL DISTRIBUTION WIDTH 16.6 % (11.5-14.5); WHITE BLOOD COUNT 6.9 K/uL (4.8-10.8)
[2018-01-12 07:17] LABS: URINE BILIRUBIN NEGATIVE (NEGATIVE); URINE BLOOD 1+ (NEGATIVE); URINE CLARITY Clear (Clear); URINE COLOR Yellow (YELLOW); URINE GLUCOSE (UA) 3+ mg/dL (Normal); URINE LEUKOCYTE ESTERASE NEG Leu/uL (Negative); URINE PROTEIN NEGATIVE (NEGATIVE); URINE UROBILINOGEN NORMAL mg/dL (0.2-1.0)
[2018-01-12 08:23] LABS: CALCIUM 6.9 mg/dl (8.6-10.4); GFR AFRICAN-AMERICAN > 60; GFR NON-AFRICAN AMERICAN > 60
[2018-01-12 08:34] LABS: BLOOD UREA NITROGEN < 2 mg/dL (7-17)
[2018-01-12] MEDS: Cholestyramine 4 gm/Pkt UD PO SCH ×4 (09:27→21:14)
[2018-01-12 09:42] LABS: ANISOCYTOSIS SLIGHT; BANDS 1 % (0-2); BASOPHIL 1 % (0-2); BURR CELLS SLIGHT; EOSINOPHIL 1 % (0-4); HYPOCHROMIC SLIGHT; LYMPHOCYTE 10 % (20-40); MONOCYTE 8 % (0-10); NEUTROPHIL 79 % (50-75); PLATELET ESTIMATE NORMAL (NORMAL); POIKILOCYTOSIS SLIGHT; TOTAL CELLS COUNTED 100
[2018-01-12] MEDS ORDERED: Propofol 10 mg/ml Inj (20 ML) ONE (11:00)
[2018-01-12] MEDS ORDERED: Glucagon Recombinant 1 mg Inj ONE (11:53)
[2018-01-13] MEDS: Albuterol-Ipratrop 3 mg / 0.5 (3 ml) UD INH SCH ×4 (01:11→19:31)
[2018-01-13] MEDS: Levothyroxine 100 MCG TAB PO SCH (05:57)
[2018-01-13] MEDS: Cholestyramine 4 gm/Pkt UD PO SCH ×4 (09:31→21:52)
--- NOTE | 2018-01-13 12:13 | PN ---
DATE: 01/13/2018 LOCATION: 661, bed B. SUBJECTIVE: This is an 82-year-old female, post colonoscopy with biopsy; seen and examined in rounds without significant clinical changes. No reported active bleeding, nausea, or vomiting. Significant shortness of breath but the patient has no reported chills or fever. The entire chart is reviewed including but not limited to the most recent lab and radiology study results, current and the previous medication list, current and the previous medical events, and today's lab is still pending; however, the patient had low hemoglobin and hematocrit with low sodium, low BUN and creatinine. Today's blood glucose level is 74. Calcium is still 6.9. The recently done GI bleeding scan report is seen. PHYSICAL EXAMINATION: GENERAL: An 82-year-old female. VITAL SIGNS: Afebrile with pulse of 76, respiratory rate 20-22, blood pressure 106/66. HEENT: Showed mildly pale, dry oral mucous membranes. Nonicteric sclerae. LUNGS: A few scattered crepitation. Decreased air entry at bases. HEART: Positive S1 and S2. ABDOMEN: Soft with mild generalized tenderness. No mass or organomegaly. No rebound tenderness or guarding. EXTREMITIES: Without significant clubbing, cyanosis, or edema. NEUROLOGIC: No reported new neurological deficits, sensory or motor. IMPRESSION: 1. Gastrointestinal bleeding, subsided. 2. Anemia secondary to above, hemoglobin and hematocrit are stable, post blood transfusion. 3. Known history of gastritis, duodenal ulcer, chronic obstructive pulmonary disease, and hypertension. 4. Malnutrition with hypoalbuminemia. 5. Known history of pseudomembranous colitis. SUGGESTIONS: 1. Continue current management. 2. Advance oral intake. 3. Follow up H and H. 4. The patient may need peripheral hyperalimentation in the meantime until she is more stable clinically. Sarah Sanders MD
[2018-01-13] MEDS: Potassium Chloride 20 MEQ in Dextrose 5%/0.45% NS 1,000 ML IV SCH (14:00)
--- NOTE | 2018-01-13 14:58 | CP.PCM.PN ---
Subjective - Date & Time of Evaluation Date of Evaluation: 01/12/18 Time of Evaluation: 19:35 - Subjective Subjective: pt seen and examined at bedside Objective - Vital Signs/Intake and Output Vital Signs (last 24 hours): Temp Pulse Resp BP Pulse Ox 97.4 F L 102 H 18 106/71 94 L 01/13/18 07:35 01/13/18 11:33 01/13/18 07:35 01/13/18 07:35 01/13/18 07:35 Intake and Output: 01/13/18 01/13/18 06:59 18:59 Intake Total 1030 900 Output Total 500 Balance 1030 400 - Medications Medications: Current Medications Acetaminophen (Tylenol 325mg Tab) 650 mg PO Q6 PRN PRN Reason: Pain, moderate (4-7) Last Admin: 01/10/18 23:15 Dose: 650 mg Albuterol/Ipratropium (Duoneb 3 Mg/0.5 Mg (3 Ml) Ud) 3 ml INH RQ6 [facility] Last Admin: 01/13/18 13:54 Dose: 3 ml Cholestyramine Resin (Questran) 4 gm PO QID [facility] Last Admin: 01/13/18 14:05 Dose: 4 gm Dextrose (Dextrose 50% Inj) 0 ml IVP .STAT PRN; Protocol PRN Reason: Hypoglycemia Protocol Last Admin: 01/12/18 21:57 Dose: 50 ml Dextrose (Glutose 15) 0 gm PO .ONCE PRN; Protocol PRN Reason: Hypoglycemia Protocol Diltiazem HCl (Cardizem) 30 mg PO Q8 [facility] Last Admin: 01/13/18 14:55 Dose: Not Given Glucagon (Glucagen Diagnostic Kit) 0 mg IM .STAT PRN; Protocol PRN Reason: Hypoglycemia Protocol Dextrose (Dextrose 5% In Water 1000 Ml) 1,000 mls @ 0 mls/hr IV .Q0M PRN; Protocol; Per Protocol PRN Reason: Hypoglycemia Protocol Potassium Chloride 20 meq/ (Dextrose/Sodium Chloride) 1,010 mls @ 70 mls/hr IV .[id number] [facility] Last Admin: 01/13/18 14:00 Dose: 70 mls/hr Levothyroxine Sodium (Synthroid) 100 mcg PO 0630 [facility] Last Admin: 01/13/18 05:57 Dose: 100 mcg Lorazepam (Ativan) 0.5 mg PO BID [facility] Last Admin: 01/13/18 09:31 Dose: 0.5 mg Pantoprazole Sodium (Protonix Inj) 40 mg IVP DAILY [facility] Last Admin: 01/13/18 09:31 Dose: 40 mg Rosuvastatin Calcium (Crestor) 5 mg PO HS [facility] Last Admin: 01/12/18 21:30 Dose: Not Given Vitamin A (Vitamin A & D Oint Ud Foilpak) 1 ea EXT Q8 PRN PRN Reason: Dry SKIN Last Admin: 01/13/18 14:05 Dose: 1 ea - Labs Labs: 01/12/18 07:02 01/12/18 07:02 PT 16.8 SECONDS (9.7-12.2) H 01/10/18 03:12 INR 1.5 01/10/18 03:12 APTT 33 SECONDS (21-34) 01/10/18 03:12 Assessment and Plan (1) GIB (gastrointestinal bleeding) Status: Acute (2) Hypokalemia Status: Acute (3) Anxiety Status: Acute (4) C. difficile colitis Status: Acute (5) COPD (chronic obstructive pulmonary disease) Status: Acute (6) Dehydration Status: Acute (7) HTN (hypertension) Status: Acute (8) PAD (peripheral artery disease) Status: Acute
--- NOTE | 2018-01-13 14:58 | CP.PCM.PN ---
Subjective - Date & Time of Evaluation Date of Evaluation: 01/12/18 Time of Evaluation: 18:30 - Subjective Subjective: pt seen and examined at bedside having bilateral venous stasis lower extremity ulcerations. Objective - Vital Signs/Intake and Output Vital Signs (last 24 hours): Temp Pulse Resp BP Pulse Ox 97.4 F L 102 H 18 106/71 94 L 01/13/18 07:35 01/13/18 11:33 01/13/18 07:35 01/13/18 07:35 01/13/18 07:35 Intake and Output: 01/13/18 01/13/18 06:59 18:59 Intake Total 1030 900 Output Total 500 Balance 1030 400 - Medications Medications: Current Medications Acetaminophen (Tylenol 325mg Tab) 650 mg PO Q6 PRN PRN Reason: Pain, moderate (4-7) Last Admin: 01/10/18 23:15 Dose: 650 mg Albuterol/Ipratropium (Duoneb 3 Mg/0.5 Mg (3 Ml) Ud) 3 ml INH RQ6 [facility] Last Admin: 01/13/18 13:54 Dose: 3 ml Cholestyramine Resin (Questran) 4 gm PO QID [facility] Last Admin: 01/13/18 14:05 Dose: 4 gm Dextrose (Dextrose 50% Inj) 0 ml IVP .STAT PRN; Protocol PRN Reason: Hypoglycemia Protocol Last Admin: 01/12/18 21:57 Dose: 50 ml Dextrose (Glutose 15) 0 gm PO .ONCE PRN; Protocol PRN Reason: Hypoglycemia Protocol Diltiazem HCl (Cardizem) 30 mg PO Q8 [facility] Last Admin: 01/13/18 14:55 Dose: Not Given Glucagon (Glucagen Diagnostic Kit) 0 mg IM .STAT PRN; Protocol PRN Reason: Hypoglycemia Protocol Dextrose (Dextrose 5% In Water 1000 Ml) 1,000 mls @ 0 mls/hr IV .Q0M PRN; Protocol; Per Protocol PRN Reason: Hypoglycemia Protocol Potassium Chloride 20 meq/ (Dextrose/Sodium Chloride) 1,010 mls @ 70 mls/hr IV .[id number] [facility] Last Admin: 01/13/18 14:00 Dose: 70 mls/hr Levothyroxine Sodium (Synthroid) 100 mcg PO 0630 [facility] Last Admin: 01/13/18 05:57 Dose: 100 mcg Lorazepam (Ativan) 0.5 mg PO BID [facility] Last Admin: 01/13/18 09:31 Dose: 0.5 mg Pantoprazole Sodium (Protonix Inj) 40 mg IVP DAILY [facility] Last Admin: 01/13/18 09:31 Dose: 40 mg Rosuvastatin Calcium (Crestor) 5 mg PO HS [facility] Last Admin: 01/12/18 21:30 Dose: Not Given Vitamin A (Vitamin A & D Oint Ud Foilpak) 1 ea EXT Q8 PRN PRN Reason: Dry SKIN Last Admin: 01/13/18 14:05 Dose: 1 ea - Labs Labs: 01/12/18 07:02 01/12/18 07:02 PT 16.8 SECONDS (9.7-12.2) H 01/10/18 03:12 INR 1.5 01/10/18 03:12 APTT 33 SECONDS (21-34) 01/10/18 03:12 Assessment and Plan (1) GIB (gastrointestinal bleeding) Status: Acute (2) Hypokalemia Status: Acute (3) Anxiety Status: Acute (4) C. difficile colitis Status: Acute (5) COPD (chronic obstructive pulmonary disease) Status: Acute (6) Dehydration Status: Acute (7) HTN (hypertension) Status: Acute (8) PAD (peripheral artery disease) Status: Acute
--- NOTE | 2018-01-14 00:47 | CON ---
DATE: 01/13/2018 REASON FOR CONSULTATION: Abnormal EKG with evidence of premature atrial complexes and bifascicular block, i.e., right bundle-branch block with left anterior fascicular block. HISTORY OF PRESENT ILLNESS: The patient is an 82-year-old female who has history of chronic obstructive lung disease with moderate pulmonary hypertension and severe left ventricular diastolic dysfunction, was recently discharged to subacute rehab after she had a prolonged hospitalization for exacerbation of chronic obstructive lung disease. At that time, the patient had borderline troponin elevation, had C. difficile colitis with rectal bleeding and had Enterococcus faecalis urinary tract infection, and the patient remained on rectal tube for a long time. Colonoscopy was canceled at that time because of the patient's poor condition and was transferred to hospice; however, she made a remarkable recovery before transferring her back to the subacute rehab. The patient presented this time because of significant anemia that required packed RBC transfusion. The patient does report mild chest pain to me today but cannot characterize it. The patient denies any abdominal pain. SOCIAL HISTORY: Patient is a former smoker. MEDICATIONS: Ativan 0.5 mg p.o. twice a day, Cardizem 30 mg every 8 hours, Crestor 5 mg once a day, albuterol inhaler every 6 hours, intravenous potassium chloride replacement in D5 normal saline, Questran 4 mg p.o. four times a day, and Synthroid 100 mcg once a day. REVIEW OF SYSTEMS: No vomiting or diarrhea today. No fever or chills. Patient complains of mild chest pain. PHYSICAL EXAMINATION: GENERAL: The patient is an elderly female who does not appear to be in any acute distress. VITAL SIGNS: Blood pressure 106/71, heart rate 99, temperature 97.4, respirations 18. HEENT: Pale conjunctivae. CHEST: Bilateral rhonchi. HEART: S1, S2, regular. ABDOMEN: Soft. EXTREMITIES: Significant muscle wasting. No pedal edema. LABORATORY DATA: Hemoglobin and hematocrit on admission 6.3 and 18.8. Yesterday's hemoglobin and hematocrit 10.4 and 31.1. Yesterday's white count and platelet count are within normal limits. SMA-7 yesterday; sodium 130, potassium 4.2, chloride 103, CO2 of 23, glucose 103, BUN less than 2, creatinine 0.4. EKG revealed sinus rhythm with APCs, bifascicular block, i.e., right bundle-branch block with left anterior fascicular block. A GI bleeding scan performed on 01/10/2018, no evidence of acute GI bleeding. ASSESSMENT: 1. Abnormal EKG with evidence of sinus rhythm with atrial premature contractions and bifascicular block, i.e., right bundle branch block with left anterior fascicular block. 2. Secondary pulmonary hypertension. 3. Chronic obstructive lung disease. 4. History of multifocal atrial tachycardia. 5. Anemia, requiring packed red blood cell transfusion. RECOMMENDATIONS: 1. Case was discussed with primary physician, Dr. Lex Patel. 2. Patient can be maintained on current bronchodilators. Patient can be maintained on current IV fluid therapy with potassium chloride replacement as the patient was significantly hypokalemic on admission. 3. Continue current Synthroid 100 mcg once a day and Questran 4 mg four times a day. Tru Vinson MD
[2018-01-14] MEDS: Albuterol-Ipratrop 3 mg / 0.5 (3 ml) UD INH SCH ×4 (01:08→19:08)
[2018-01-14] MEDS: Levothyroxine 100 MCG TAB PO SCH (05:42)
[2018-01-14 08:26] LABS: BASO % 0.5 % (0.0-2.0); EOS # 0.1 K/uL (0.0-0.7); EOS % 1.3 % (0.0-4.0); HEMOGLOBIN 10.7 g/dL (11.0-16.0); LYMPH # 0.7 K/uL (1.0-4.3); LYMPH % 10.6 % (20.0-40.0); MEAN CORPUSCULAR HEMOGLOBIN 30.6 pg (27.0-31.0); MEAN CORPUSCULAR HGB CONC 34.2 g/dL (33.0-37.0); MEAN PLATELET VOLUME 8.3 fL (7.2-11.7); MONO # 0.7 K/uL (0.0-0.8); MONO % 9.4 % (0.0-10.0); NEUT # 5.5 K/uL (1.8-7.0); NEUT % 78.2 % (50.0-75.0); NRBC % 0.1 % (0.0-2.0); RBC 3.48 Mil/uL (3.80-5.20); RED CELL DISTRIBUTION WIDTH 16.4 % (11.5-14.5); WHITE BLOOD COUNT 7.1 K/uL (4.8-10.8)
[2018-01-14 08:28] LABS: BLOOD UREA NITROGEN 2 mg/dL (7-17); CALCIUM 7.4 mg/dl (8.6-10.4); GFR AFRICAN-AMERICAN > 60; GFR NON-AFRICAN AMERICAN > 60
[2018-01-14 08:29] LABS: MEAN CELL VOLUME 89.5 fL (81.0-99.0)
[2018-01-14] MEDS: Cholestyramine 4 gm/Pkt UD PO SCH ×4 (09:26→21:48)
[2018-01-14] MEDS ORDERED: Oxycodone/Acetaminophen 5/325 mg Tab PO ONE (12:45)
--- NOTE | 2018-01-14 13:44 | PN ---
DATE: 01/14/2018 LOCATION: 661, bed B. SUBJECTIVE: This is an 82-year-old female, post lower endoscopy with biopsy, biopsy report is still pending, seen and examined in rounds with a complaint of generalized weakness and malaise with poor oral intake. No reported chest pain, palpitation, significant shortness of breath, or active bleeding. The entire chart is reviewed including but not limited to the most recent lab and radiology study results, current and the previous medication list, current and the previous medical events. Today's blood glucose level is 74, the latest. Rest of the lab result still pending. PHYSICAL EXAMINATION: GENERAL: An 82-year-old female. VITAL SIGNS: Afebrile with a pulse of 82, respiratory rate 20 to 22, blood pressure 110/74. HEENT: Showed pale, dry oral mucous membrane. Nonicteric sclerae. LUNGS: A few scattered crepitation. Decreased air entry at bases. HEART: Positive S1 and S2. ABDOMEN: Soft with mild generalized tenderness. No mass or organomegaly. No rebound tenderness or guarding. EXTREMITIES: With mild lower extremity edematous changes. No clubbing or cyanosis. EXECUTIVE CREATIVE DIRECTOR: No reported new neurological deficits, sensory or motor. Peripheral pulses are present but weak bilaterally. No reported focal deficits recently. The patient is seen by the cardiology consult and his evaluation was fully reviewed. IMPRESSION: 1. Anemia with status post colonoscopy with biopsy. 2. Known history of secondary pulmonary hypertension with chronic obstructive pulmonary disease. 3. Reexacerbation of peptic ulcer disease. 4. Recent gastrointestinal bleeding, subsided. 5. Known history of duodenal ulcer, gastritis, with history of pseudomembranous colitis. 6. Diverticulosis, diagnosed recently also by colonoscopy with internal hemorrhoids. SUGGESTIONS: 1. Agree with your plan. 2. High fiber diet, no seeds. 3. Antireflux measures. 4. Further recommendation to follow. Sarah Sanders MD
[2018-01-14] MEDS ORDERED: Magnesium Sulfate 1 gm in D5W 1 GM/100 ML BAG IVPB SCH (14:00)
[2018-01-14] MEDS: Magnesium Sulfate 1 gm in D5W 1 GM/100 ML BAG IVPB SCH ×2 (16:58→17:37)
--- NOTE | 2018-01-14 19:15 | PN ---
DATE: 01/14/2018 SUBJECTIVE: The patient is experiencing bilateral foot and ankle pain. No chest pain. Oral Cardizem was resumed yesterday because of tachycardia with frequent APCs. The patient denies any chest pain. PHYSICAL EXAMINATION: VITAL SIGNS: Blood pressure 109/68, heart rate 101, temperature 98.2, respirations 20. HEENT: Pale conjunctivae. CHEST: Bilateral rhonchi. HEART: S1 and S2 regular. EXTREMITIES: No edema or calf tenderness. LABORATORY DATA: SMA-7: Sodium 132, potassium 4.1, chloride 104, CO2 23, glucose 59, BUN 2, creatinine 0.4. Today's hemoglobin and hematocrit 10.7 and 31.2, white count and platelet count are within normal limits. Today's magnesium level is 1.4. ASSESSMENT: 1. Periods of atrial tachycardia. 2. Hypomagnesemia. 3. Anemia. 4. Chronic obstructive lung disease. RECOMMENDATIONS: I did order 1 tablet of Percocet to be given on a stat basis. Continue Cardizem at 30 mg p.o. every 8 hours, Crestor at 5 mg once a day, Synthroid 100 mcg once a day. Start IV magnesium sulfate replacement. Obtain serum uric acid as well as venous Doppler of the lower extremities. Tru Vinson MD
[2018-01-14] MEDS: Potassium Chloride 20 MEQ in Dextrose 5%/0.45% NS 1,000 ML IV SCH (21:49)
[2018-01-14] MEDS: Potassium Ch 20mEq in D5-1/2NS 1,000 ML IV SCH (21:50)
--- NOTE | 2018-01-14 23:11 | CP.PCM.PN ---
Subjective - Date & Time of Evaluation Date of Evaluation: 01/14/18 Time of Evaluation: 19:00 - Subjective Subjective: Pt seen and examined, is improving, afberile, she is not bleeding, less short of breath, less tacypneac, less tachycardia s/p blood transfusion and Gi bleed resolved, pt is on medical management, advancing diet Objective - Vital Signs/Intake and Output Vital Signs (last 24 hours): Temp Pulse Resp BP Pulse Ox 98.5 F 81 20 104/69 98 01/14/18 15:06 01/14/18 20:56 01/14/18 15:06 01/14/18 15:06 01/14/18 15:06 Intake and Output: 01/14/18 01/15/18 18:59 06:59 Intake Total 560 Balance 560 - Medications Medications: Current Medications Acetaminophen (Tylenol 325mg Tab) 650 mg PO Q6 PRN PRN Reason: Pain, moderate (4-7) Last Admin: 01/10/18 23:15 Dose: 650 mg Albuterol/Ipratropium (Duoneb 3 Mg/0.5 Mg (3 Ml) Ud) 3 ml INH RQ6 [facility] Last Admin: 01/14/18 19:08 Dose: Not Given Cholestyramine Resin (Questran) 4 gm PO QID [facility] Last Admin: 01/14/18 21:48 Dose: 4 gm Dextrose (Dextrose 50% Inj) 0 ml IVP .STAT PRN; Protocol PRN Reason: Hypoglycemia Protocol Last Admin: 01/12/18 21:57 Dose: 50 ml Dextrose (Glutose 15) 0 gm PO .ONCE PRN; Protocol PRN Reason: Hypoglycemia Protocol Diltiazem HCl (Cardizem) 30 mg PO Q8 [facility] Last Admin: 01/14/18 21:48 Dose: 30 mg Glucagon (Glucagen Diagnostic Kit) 0 mg IM .STAT PRN; Protocol PRN Reason: Hypoglycemia Protocol Potassium Chloride/Dextrose/Sod Cl (Potassium Chl 20 Meq In D5-1/2ns) 1,000 mls @ 70 mls/hr IV .[id number] [facility] Last Admin: 01/14/18 21:50 Dose: 70 mls/hr Levothyroxine Sodium (Synthroid) 100 mcg PO 0630 [facility] Last Admin: 01/14/18 05:42 Dose: 100 mcg Lorazepam (Ativan) 0.5 mg PO BID [facility] Last Admin: 01/14/18 16:59 Dose: 0.5 mg Pantoprazole Sodium (Protonix Inj) 40 mg IVP DAILY [facility] Last Admin: 01/14/18 09:26 Dose: 40 mg Rosuvastatin Calcium (Crestor) 5 mg PO HS [facility] Last Admin: 01/14/18 21:48 Dose: 5 mg Vitamin A (Vitamin A & D Oint Ud Foilpak) 1 ea EXT Q8 PRN PRN Reason: Dry SKIN Last Admin: 01/13/18 14:05 Dose: 1 ea - Labs Labs: 01/14/18 08:07 01/14/18 08:07 PT 16.8 SECONDS (9.7-12.2) H 01/10/18 03:12 INR 1.5 01/10/18 03:12 APTT 33 SECONDS (21-34) 01/10/18 03:12 - Constitutional Appears: No Acute Distress - Head Exam Head Exam: ATRAUMATIC, NORMAL INSPECTION, NORMOCEPHALIC - Eye Exam Eye Exam: EOMI, Normal appearance, PERRL Pupil Exam: NORMAL ACCOMODATION, PERRL - ENT Exam ENT Exam: Mucous Membranes Moist, Normal Exam - Respiratory Exam Respiratory Exam: Clear to Ausculation Bilateral, NORMAL BREATHING PATTERN - Cardiovascular Exam Cardiovascular Exam: REGULAR RHYTHM, +S1, +S2. absent: Murmur - GI/Abdominal Exam GI & Abdominal Exam: Soft, Normal Bowel Sounds. absent: Tenderness - Rectal Exam Rectal Exam: Deferred Assessment and Plan (1) GIB (gastrointestinal bleeding) Status: Acute (2) Hypokalemia Status: Acute (3) Anxiety Status: Acute (4) C. difficile colitis Status: Acute (5) COPD (chronic obstructive pulmonary disease) Status: Acute (6) Dehydration Status: Acute (7) HTN (hypertension) Status: Acute (8) PAD (peripheral artery disease) Status: Acute
[2018-01-15] MEDS: Albuterol-Ipratrop 3 mg / 0.5 (3 ml) UD INH SCH ×4 (01:01→20:23)
[2018-01-15] MEDS: Levothyroxine 100 MCG TAB PO SCH (05:49)
[2018-01-15] MEDS: Cholestyramine 4 gm/Pkt UD PO SCH ×4 (10:11→21:18)
[2018-01-15] MEDS: Potassium Ch 20mEq in D5-1/2NS 1,000 ML IV SCH (10:17)
--- NOTE | 2018-01-15 15:53 | PN ---
DATE: 01/15/2018 LOCATION: 661, bed B. SUBJECTIVE: This is an 82-year-old female seen and examined in rounds without significant clinical changes or reported active bleeding this morning. No reported chest pain, palpitation, or significant shortness of breath. The patient somewhat tachypneic with less tachycardia this morning, status post blood transfusion. No chills or fever. No nausea or vomiting. Most recent lab result done yesterday showed still low hemoglobin and hematocrit; however, today's blood glucose level is 77 and the patient still has low magnesium, low calcium, and low uric acid with low BUN and creatinine. PHYSICAL EXAMINATION: GENERAL: An 82-year-old female. VITAL SIGNS: Afebrile with pulse of 76, respiratory rate 20-22 with blood pressure 110/62. HEENT: Showed pale, dry oral mucous membrane. Nonicteric sclerae. LUNGS: Few scattered crepitation. Decreased air entry at bases. HEART: Positive S1 and S2. ABDOMEN: Soft with slight generalized tenderness. No mass or organomegaly. No rebound tenderness or guarding. EXTREMITIES: Without significant clubbing, cyanosis, or edematous changes. RECTAL: The patient refused. NEUROLOGIC: No new reported neurological deficits, sensory or motor. IMPRESSION: 1. Re-exacerbation of peptic ulcer disease. 2. Recent history of gastrointestinal bleeding, subsided with known history of duodenal ulcer, gastritis as well as pseudomembranous colitis. 3. Diverticulosis with left-sided colitis, diagnosed by recent colonoscopy, associated with internal hemorrhoids and evidence of active bleeding. 4. Known history of pulmonary hypertension and chronic obstructive pulmonary disease. 5. Malnutrition with hypoalbuminemia and electrolyte imbalance. 6. Periods of atrial tachycardia, treated by the distributed energy systems consultant on the case. SUGGESTIONS: 1. Continue current management. 2. Repeat stool for C. diff. 3. Close observation and followup on cancer marker. Further recommendation to follow. Sarah Sanders MD
[2018-01-15 17:09] LABS: BLOOD UREA NITROGEN 3 mg/dL (7-17); CALCIUM 7.8 mg/dl (8.6-10.4); GFR AFRICAN-AMERICAN > 60; GFR NON-AFRICAN AMERICAN > 60
[2018-01-15] MEDS: Magnesium Chloride 64 mg ER Tab PO SCH (21:18)
--- NOTE | 2018-01-15 23:34 | PN ---
DATE: 01/15/2018 SUBJECTIVE: Patient's foot pain has improved. She denies any palpitation. She is mildly short of breath and denies chest pain. PHYSICAL EXAMINATION: VITAL SIGNS: Blood pressure 124/68, heart rate 94, temperature 98.5, and respirations 20. HEENT: Normocephalic. CHEST: Bilateral rhonchi. CARDIOPULMONARY: S1 and S2 regular. ABDOMEN: Soft. EXTREMITIES: No edema. LABORATORY DATA: Today's SMA-7: Sodium 129, potassium 4.5, chloride 102, CO2 of 23, glucose 110, BUN 3, creatinine 0.5. Today's magnesium level is 1.5. Uric acid is at 1.6, significantly low. ASSESSMENT: 1. History of multifocal atrial tachycardia. 2. Hypomagnesemia. 3. Chronic obstructive lung disease. 4. Anemia, requiring packed red blood cell transfusion. 5. Hyponatremia. RECOMMENDATIONS: Continue current Cardizem at 30 mg every 8 hours, Crestor 5 mg once a day, albuterol inhaler every 6 hours p.r.n., IV fluid with KCl infusion, IV Protonix 40 mg daily, and Synthroid 100 mcg daily. Start Slow-Mag at 1 tablet twice a day. Tru Vinson MD
[2018-01-16] MEDS: Albuterol-Ipratrop 3 mg / 0.5 (3 ml) UD INH SCH ×4 (01:50→19:26)
[2018-01-16] MEDS: Levothyroxine 100 MCG TAB PO SCH (05:42)
[2018-01-16] MEDS: Cholestyramine 4 gm/Pkt UD PO SCH ×4 (09:04→22:05)
[2018-01-16] MEDS: Magnesium Chloride 64 mg ER Tab PO SCH ×2 (09:04→17:49)
[2018-01-16] MEDS: Potassium Ch 20mEq in D5-1/2NS 1,000 ML IV SCH (09:05)
--- NOTE | 2018-01-16 11:56 | VASCLAB ---
Date of service: 01/15/2018 PROCEDURE: Lower Extremity Venous Duplex Exam. HISTORY: Pain in limb, r/o DVT PRIORS: None. TECHNIQUE: Bilateral common femoral, femoral, popliteal and posterior tibial, peroneal and great saphenous veins were evaluated. Flow was assessed with color Doppler, compressibility, assessment of phasic flow and augmentation response. Report prepared by Jeison Beltrán, ELIAZAR, RVT FINDINGS: RIGHT: 1. Common Femoral Vein: 1.1. Compressibility - Fully compressible: Thrombus - None : Flow - Phasic: Augmentation -Normal: Reflux - None. 2. Femoral Vein: 2.1. Compressibility - Fully compressible: Thrombus - None : Flow - Phasic: Augmentation -Normal: Reflux - None. 3. Popliteal Vein: 3.1. Compressibility - Fully compressible: Thrombus - None : Flow - Phasic: Augmentation -Normal: Reflux - None. 4. Posterior Tibial Vein: 4.1. Compressibility - Fully compressible: Thrombus - None: Flow - Phasic: Augmentation -Normal: Reflux - None. 5. Peroneal Vein: 5.1. Compressibility - Fully compressible: Thrombus - None: Flow - Phasic: Augmentation -Normal: Reflux - None. 6. Great Saphenous Vein: 6.1. Compressibility - Fully compressible: Thrombus - None: Flow - Phasic: Augmentation - Normal: Reflux - None. LEFT: 1. Common Femoral Vein: 1.1. Compressibility - Fully compressible: Thrombus - None: Flow - Phasic: Augmentation -Normal: Reflux - None. 2. Femoral Vein: 2.1. Compressibility - Fully compressible: Thrombus - None: Flow - Phasic: Augmentation -Normal: Reflux - None. 3. Popliteal Vein: 3.1. Compressibility - Fully compressible: Thrombus - None : Flow - Phasic: Augmentation -Normal: Reflux - None. 4. Posterior Tibial Vein: 4.1. Compressibility - Fully compressible: Thrombus - None: Flow - Phasic: Augmentation -Normal: Reflux - None. 5. Peroneal Vein: 5.1. Compressibility - Fully compressible: Thrombus - None: Flow - Phasic: Augmentation -Normal: Reflux - None. 6. Great Saphenous Vein: 6.1. Compressibility - Fully compressible: Thrombus - None: Flow - Phasic: Augmentation - Normal: Reflux - None. OTHER FINDINGS: Right: None significant. Left: None significant. IMPRESSION: Right: No evidence of deep or superficial vein thrombosis of the right lower extremity. Normal valve function noted of the right side. Left: No evidence of deep or superficial vein thrombosis of the left lower extremity. Normal valve function noted of the left side.
--- NOTE | 2018-01-16 15:37 | CP.PCM.PN ---
Subjective - Date & Time of Evaluation Date of Evaluation: 01/16/18 Time of Evaluation: 03:10 - Subjective Subjective: PGY-4 GI Fellow Prog Note Pt sleeping in bed when seen this PM. States she had at least 2 loose BMs recently. Also complaining of leg pain, denied CP, SOB, Abd pain. 5 point ROS negative other than stated above. Objective - Vital Signs/Intake and Output Vital Signs (last 24 hours): Temp Pulse Resp BP Pulse Ox 98.2 F 90 18 96/63 L 95 01/16/18 07:00 01/16/18 07:00 01/16/18 07:00 01/16/18 07:00 01/15/18 23:10 Intake and Output: 01/16/18 01/16/18 06:59 18:59 Output Total 500 Balance -500 - Medications Medications: Current Medications Acetaminophen (Tylenol 325mg Tab) 650 mg PO Q6 PRN PRN Reason: Pain, moderate (4-7) Last Admin: 01/10/18 23:15 Dose: 650 mg Albuterol/Ipratropium (Duoneb 3 Mg/0.5 Mg (3 Ml) Ud) 3 ml INH RQ6 [facility] Last Admin: 01/16/18 13:32 Dose: 3 ml Cholestyramine Resin (Questran) 4 gm PO QID [facility] Last Admin: 01/16/18 09:04 Dose: 4 gm Dextrose (Dextrose 50% Inj) 0 ml IVP .STAT PRN; Protocol PRN Reason: Hypoglycemia Protocol Last Admin: 01/12/18 21:57 Dose: 50 ml Dextrose (Glutose 15) 0 gm PO .ONCE PRN; Protocol PRN Reason: Hypoglycemia Protocol Diltiazem HCl (Cardizem) 30 mg PO Q8 [facility] Last Admin: 01/16/18 05:45 Dose: Not Given Glucagon (Glucagen Diagnostic Kit) 0 mg IM .STAT PRN; Protocol PRN Reason: Hypoglycemia Protocol Potassium Chloride/Dextrose/Sod Cl (Potassium Chl 20 Meq In D5-1/2ns) 1,000 mls @ 70 mls/hr IV .[id number] [facility] Last Admin: 01/16/18 09:05 Dose: 70 mls/hr Levothyroxine Sodium (Synthroid) 100 mcg PO 0630 [facility] Last Admin: 01/16/18 05:42 Dose: 100 mcg Lorazepam (Ativan) 0.5 mg PO BID [facility] Last Admin: 01/16/18 09:04 Dose: 0.5 mg Magnesium Chloride (Slow-Mag) 64 mg PO BID [facility] Last Admin: 01/16/18 09:04 Dose: 64 mg Pantoprazole Sodium (Protonix Inj) 40 mg IVP DAILY [facility] Last Admin: 01/16/18 09:04 Dose: 40 mg Rosuvastatin Calcium (Crestor) 5 mg PO HS [facility] Last Admin: 01/15/18 21:18 Dose: 5 mg Vitamin A (Vitamin A & D Oint Ud Foilpak) 1 ea EXT Q8 PRN PRN Reason: Dry SKIN Last Admin: 01/13/18 14:05 Dose: 1 ea - Labs Labs: 01/14/18 08:07 01/15/18 16:41 PT 16.8 SECONDS (9.7-12.2) H 01/10/18 03:12 INR 1.5 01/10/18 03:12 APTT 33 SECONDS (21-34) 01/10/18 03:12 - Constitutional Appears: No Acute Distress, Chronically Ill - Head Exam Head Exam: ATRAUMATIC, NORMAL INSPECTION - Eye Exam Eye Exam: EOMI. absent: Conjunctival injection, Scleral icterus - Respiratory Exam Respiratory Exam: NORMAL BREATHING PATTERN. absent: Accessory Muscle Use, Wheezes - GI/Abdominal Exam GI & Abdominal Exam: Soft, Normal Bowel Sounds. absent: Distended, Firm, Guarding, Rigid, Tenderness Assessment and Plan - Assessment and Plan (Free Text) Assessment: 82F with hx of COPD, gastritis, duodenal ulcers and CDiff with signs of gi bleed #Acute blood loss anemia due to GI bleed: Stable. Bleeding scan noted no active bleeding. #Duodenal ulcer #Gastritis #Severely Malnourished #Recent C. Difficile infection: Still with loose stools. CSPY on 01/12 with nonbleeding int hemorrhoids #COPD, HTN, Anxiety #Sacral ulcer Plan: -Checking C diff -Continue supportive care -EGD 12/26/17 benign w/out evidence for cause of active rectal bleeding and congested mucosa in ascending colon s/p biopsy -Continue PPI IV daily -Follow Hgb transfuse pRBCs for Hb < 7 Pt to be discussed with Dr. Cain. See his attestation for final recs.
--- NOTE | 2018-01-16 16:01 | CP.PCM.PN ---
Subjective - Date & Time of Evaluation Date of Evaluation: 01/15/18 Time of Evaluation: 18:35 - Subjective Subjective: Pt sleeping in bed when seen this PM. States she had at least 2 loose BMs recently. Also complaining of leg pain, denied CP, SOB, Abd pain. Objective - Vital Signs/Intake and Output Vital Signs (last 24 hours): Temp Pulse Resp BP Pulse Ox 98.2 F 90 18 96/63 L 95 01/16/18 07:00 01/16/18 07:00 01/16/18 07:00 01/16/18 07:00 01/15/18 23:10 Intake and Output: 01/16/18 01/16/18 06:59 18:59 Intake Total 800 Output Total 500 1000 Balance -500 -200 - Medications Medications: Current Medications Acetaminophen (Tylenol 325mg Tab) 650 mg PO Q6 PRN PRN Reason: Pain, moderate (4-7) Last Admin: 01/10/18 23:15 Dose: 650 mg Albuterol/Ipratropium (Duoneb 3 Mg/0.5 Mg (3 Ml) Ud) 3 ml INH RQ6 [facility] Last Admin: 01/16/18 13:32 Dose: 3 ml Cholestyramine Resin (Questran) 4 gm PO QID [facility] Last Admin: 01/16/18 16:00 Dose: Not Given Dextrose (Dextrose 50% Inj) 0 ml IVP .STAT PRN; Protocol PRN Reason: Hypoglycemia Protocol Last Admin: 01/12/18 21:57 Dose: 50 ml Dextrose (Glutose 15) 0 gm PO .ONCE PRN; Protocol PRN Reason: Hypoglycemia Protocol Diltiazem HCl (Cardizem) 30 mg PO Q8 [facility] Last Admin: 01/16/18 16:00 Dose: Not Given Glucagon (Glucagen Diagnostic Kit) 0 mg IM .STAT PRN; Protocol PRN Reason: Hypoglycemia Protocol Potassium Chloride/Dextrose/Sod Cl (Potassium Chl 20 Meq In D5-1/2ns) 1,000 mls @ 70 mls/hr IV .[id number] [facility] Last Admin: 01/16/18 09:05 Dose: 70 mls/hr Levothyroxine Sodium (Synthroid) 100 mcg PO 0630 [facility] Last Admin: 01/16/18 05:42 Dose: 100 mcg Lorazepam (Ativan) 0.5 mg PO BID [facility] Last Admin: 01/16/18 09:04 Dose: 0.5 mg Magnesium Chloride (Slow-Mag) 64 mg PO BID [facility] Last Admin: 01/16/18 09:04 Dose: 64 mg Pantoprazole Sodium (Protonix Inj) 40 mg IVP DAILY [facility] Last Admin: 01/16/18 09:04 Dose: 40 mg Rosuvastatin Calcium (Crestor) 5 mg PO HS [facility] Last Admin: 01/15/18 21:18 Dose: 5 mg Vitamin A (Vitamin A & D Oint Ud Foilpak) 1 ea EXT Q8 PRN PRN Reason: Dry SKIN Last Admin: 01/13/18 14:05 Dose: 1 ea - Labs Labs: 01/14/18 08:07 01/15/18 16:41 PT 16.8 SECONDS (9.7-12.2) H 01/10/18 03:12 INR 1.5 01/10/18 03:12 APTT 33 SECONDS (21-34) 01/10/18 03:12 Assessment and Plan (1) GIB (gastrointestinal bleeding) Status: Acute (2) Hypokalemia Status: Acute (3) Anxiety Status: Acute (4) C. difficile colitis Status: Acute (5) COPD (chronic obstructive pulmonary disease) Status: Acute (6) Dehydration Status: Acute (7) HTN (hypertension) Status: Acute (8) PAD (peripheral artery disease) Status: Acute
--- NOTE | 2018-01-16 16:02 | CP.PCM.PN ---
Subjective - Date & Time of Evaluation Date of Evaluation: 01/16/18 Time of Evaluation: 17:30 - Subjective Subjective: Pt sleeping in bed when seen this PM. States she had at least 2 loose BMs recently. Also complaining of leg pain, denied CP, SOB, Abd pain. Objective - Vital Signs/Intake and Output Vital Signs (last 24 hours): Temp Pulse Resp BP Pulse Ox 98.2 F 90 18 96/63 L 95 01/16/18 07:00 01/16/18 07:00 01/16/18 07:00 01/16/18 07:00 01/15/18 23:10 Intake and Output: 01/16/18 01/16/18 06:59 18:59 Intake Total 800 Output Total 500 1000 Balance -500 -200 - Medications Medications: Current Medications Acetaminophen (Tylenol 325mg Tab) 650 mg PO Q6 PRN PRN Reason: Pain, moderate (4-7) Last Admin: 01/10/18 23:15 Dose: 650 mg Albuterol/Ipratropium (Duoneb 3 Mg/0.5 Mg (3 Ml) Ud) 3 ml INH RQ6 [facility] Last Admin: 01/16/18 13:32 Dose: 3 ml Cholestyramine Resin (Questran) 4 gm PO QID [facility] Last Admin: 01/16/18 16:00 Dose: Not Given Dextrose (Dextrose 50% Inj) 0 ml IVP .STAT PRN; Protocol PRN Reason: Hypoglycemia Protocol Last Admin: 01/12/18 21:57 Dose: 50 ml Dextrose (Glutose 15) 0 gm PO .ONCE PRN; Protocol PRN Reason: Hypoglycemia Protocol Diltiazem HCl (Cardizem) 30 mg PO Q8 [facility] Last Admin: 01/16/18 16:00 Dose: Not Given Glucagon (Glucagen Diagnostic Kit) 0 mg IM .STAT PRN; Protocol PRN Reason: Hypoglycemia Protocol Potassium Chloride/Dextrose/Sod Cl (Potassium Chl 20 Meq In D5-1/2ns) 1,000 mls @ 70 mls/hr IV .[id number] [facility] Last Admin: 01/16/18 09:05 Dose: 70 mls/hr Levothyroxine Sodium (Synthroid) 100 mcg PO 0630 [facility] Last Admin: 01/16/18 05:42 Dose: 100 mcg Lorazepam (Ativan) 0.5 mg PO BID [facility] Last Admin: 01/16/18 09:04 Dose: 0.5 mg Magnesium Chloride (Slow-Mag) 64 mg PO BID [facility] Last Admin: 01/16/18 09:04 Dose: 64 mg Pantoprazole Sodium (Protonix Inj) 40 mg IVP DAILY [facility] Last Admin: 01/16/18 09:04 Dose: 40 mg Rosuvastatin Calcium (Crestor) 5 mg PO HS [facility] Last Admin: 01/15/18 21:18 Dose: 5 mg Vitamin A (Vitamin A & D Oint Ud Foilpak) 1 ea EXT Q8 PRN PRN Reason: Dry SKIN Last Admin: 01/13/18 14:05 Dose: 1 ea - Labs Labs: 01/14/18 08:07 01/15/18 16:41 PT 16.8 SECONDS (9.7-12.2) H 01/10/18 03:12 INR 1.5 01/10/18 03:12 APTT 33 SECONDS (21-34) 01/10/18 03:12 Assessment and Plan (1) GIB (gastrointestinal bleeding) Status: Acute (2) Hypokalemia Status: Acute (3) Anxiety Status: Acute (4) C. difficile colitis Status: Acute (5) COPD (chronic obstructive pulmonary disease) Status: Acute (6) Dehydration Status: Acute (7) HTN (hypertension) Status: Acute (8) PAD (peripheral artery disease) Status: Acute
[2018-01-16 16:34] VITALS: RESP 20
--- NOTE | 2018-01-16 21:41 | PN ---
Copied To: Tru Vinson MD Attending MD: Tru Vinson MD DATE: 01/16/2018 SUBJECTIVE: The patient denies any chest pain. She is anxious, and at times, crying. PHYSICAL EXAMINATION: VITAL SIGNS: Blood pressure 96/63, heart rate 90, temperature 98.2, and respirations 18. HEENT: Pale conjunctivae. CHEST: Minimal rhonchi. HEART: S1, S2, regular. ABDOMEN: Soft. EXTREMITIES: No edema. ASSESSMENT: 1. History of multifocal atrial tachycardia. 2. Chronic obstructive lung disease. 3. Clostridium difficile colitis. 4. Hyponatremia and hypomagnesemia as well as hypocalcemia. 5. Gastrointestinal bleeding, status post RBC transfusion. RECOMMENDATIONS: Continue Crestor 5 mg once daily. Resume Cardizem 30 mg every 8 hours. Continue D5W with potassium chloride replacement at the rate of 70 mL an hour. Continue Protonix 40 mg intravenously daily. Continue Slow-Mag at 1 tablet twice a day and Synthroid 100 mcg once a day. Obtain BMP as well as magnesium level in a.m. Tru Vinson MD
[2018-01-17] MEDS: Potassium Ch 20mEq in D5-1/2NS 1,000 ML IV SCH (01:00)
[2018-01-17] MEDS: Albuterol-Ipratrop 3 mg / 0.5 (3 ml) UD INH SCH ×3 (01:16→14:18)
[2018-01-17] MEDS: Levothyroxine 100 MCG TAB PO SCH (05:39)
[2018-01-17 07:23] LABS: BLOOD UREA NITROGEN 3 mg/dL (7-17); GFR AFRICAN-AMERICAN > 60; GFR NON-AFRICAN AMERICAN > 60
[2018-01-17] MEDS: Cholestyramine 4 gm/Pkt UD PO SCH ×2 (11:07→14:33)
[2018-01-17] MEDS: Magnesium Chloride 64 mg ER Tab PO SCH (11:07)
[2018-01-17 15:47] VITALS: BP 118/60; PULSE 100; TEMP 98.3; O2SAT 100
--- NOTE | 2018-01-17 15:48 | CP.PCM.PN ---
Subjective - Date & Time of Evaluation Date of Evaluation: 01/17/18 Time of Evaluation: 07:15 - Subjective Subjective: PGY-4 GI Fellow Prog Note Pt lying in bed when seen this AM. States abd pain and loose stools somewhat better this AM. Main concern is needing to urinate at the time. 5 point ROS negative other that stated above Objective - Vital Signs/Intake and Output Vital Signs (last 24 hours): Temp Pulse Resp BP Pulse Ox 97.5 F L 91 H 20 108/61 98 01/17/18 07:00 01/17/18 14:01 01/17/18 07:00 01/17/18 14:01 01/17/18 07:00 Intake and Output: 01/17/18 01/17/18 06:59 18:59 Intake Total 1460 800 Output Total 1750 600 Balance -290 200 - Medications Medications: Current Medications Acetaminophen (Tylenol 325mg Tab) 650 mg PO Q6 PRN PRN Reason: Pain, moderate (4-7) Last Admin: 01/16/18 22:05 Dose: 650 mg Albuterol/Ipratropium (Duoneb 3 Mg/0.5 Mg (3 Ml) Ud) 3 ml INH RQ6 [facility] Last Admin: 01/17/18 14:18 Dose: Not Given Cholestyramine Resin (Questran) 4 gm PO QID [facility] Last Admin: 01/17/18 14:33 Dose: 4 gm Dextrose (Dextrose 50% Inj) 0 ml IVP .STAT PRN; Protocol PRN Reason: Hypoglycemia Protocol Last Admin: 01/12/18 21:57 Dose: 50 ml Dextrose (Glutose 15) 0 gm PO .ONCE PRN; Protocol PRN Reason: Hypoglycemia Protocol Diltiazem HCl (Cardizem) 30 mg PO Q8 [facility] Last Admin: 01/17/18 14:02 Dose: Not Given Glucagon (Glucagen Diagnostic Kit) 0 mg IM .STAT PRN; Protocol PRN Reason: Hypoglycemia Protocol Potassium Chloride/Dextrose/Sod Cl (Potassium Chl 20 Meq In D5-1/2ns) 1,000 mls @ 70 mls/hr IV .[id number] [facility] Last Admin: 01/17/18 01:00 Dose: 70 mls/hr Levothyroxine Sodium (Synthroid) 100 mcg PO 0630 [facility] Last Admin: 01/17/18 05:39 Dose: 100 mcg Lorazepam (Ativan) 0.5 mg PO BID [facility] Last Admin: 01/17/18 11:07 Dose: 0.5 mg Magnesium Chloride (Slow-Mag) 64 mg PO BID [facility] Last Admin: 01/17/18 11:07 Dose: 64 mg Pantoprazole Sodium (Protonix Ec Tab) 40 mg PO DAILY [facility] Rosuvastatin Calcium (Crestor) 5 mg PO HS [facility] Last Admin: 01/16/18 22:05 Dose: 5 mg Vitamin A (Vitamin A & D Oint Ud Foilpak) 1 ea EXT Q8 PRN PRN Reason: Dry SKIN Last Admin: 01/13/18 14:05 Dose: 1 ea - Labs Labs: 01/14/18 08:07 01/17/18 06:47 PT 16.8 SECONDS (9.7-12.2) H 01/10/18 03:12 INR 1.5 01/10/18 03:12 APTT 33 SECONDS (21-34) 01/10/18 03:12 - Constitutional Appears: Cachectic, Chronically Ill - Head Exam Head Exam: ATRAUMATIC, NORMAL INSPECTION - Eye Exam Eye Exam: EOMI. absent: Conjunctival injection, Scleral icterus - Respiratory Exam Respiratory Exam: NORMAL BREATHING PATTERN. absent: Wheezes, Respiratory Distress - GI/Abdominal Exam GI & Abdominal Exam: Soft, Normal Bowel Sounds. absent: Bruit, Distended, Firm , Guarding, Rigid, Tenderness Assessment and Plan - Assessment and Plan (Free Text) Assessment: 82F with hx of COPD, gastritis, duodenal ulcers and CDiff with signs of gi bleed #Acute blood loss anemia due to GI bleed: Stable. Bleeding scan noted no active bleeding. #Duodenal ulcer #Gastritis #Severely Malnourished #Recent C. Difficile infection: Still with loose stools. CSPY on 01/12 with nonbleeding int hemorrhoids #COPD, HTN, Anxiety #Sacral ulcer Plan: -Checking C diff -Continue supportive care -EGD 12/26/17 benign w/out evidence for cause of active rectal bleeding and congested mucosa in ascending colon s/p biopsy -Continue PPI PO daily -Follow Hgb transfuse pRBCs for Hb < 7 Pt to be discussed with Dr. Cain. See his attestation for final recs/changes
[2018-01-17] MEDS: Dextrose 50% SYRINGE Inj (50 ml) IVP PRN (16:48)
--- NOTE | 2018-01-17 19:12 | PN ---
Copied To: Tru Vinson MD Attending MD: Tru Vinson MD DATE: 01/17/2018 SUBJECTIVE: The patient denies any chest pain. She is experiencing diarrhea. PHYSICAL EXAMINATION: VITAL SIGNS: Blood pressure 103/73, heart rate 82, temperature 97.5, and respirations 20. HEENT: Pale conjunctivae. CHEST: Bilateral rhonchi. HEART: S1 and S2 regular. ABDOMEN: Soft. EXTREMITIES: No edema. LABORATORY DATA: Today's SMA-7; sodium 130, potassium 4.8, chloride 102, CO2 of 23, glucose 65, BUN 3, creatinine 0.4, and magnesium is 1.3. ASSESSMENT: 1. History of multifocal atrial tachycardia. 2. Chronic obstructive lung disease. 3. Hypomagnesemia and hyponatremia. 4. Anemia, requiring packed red blood cell transfusion. RECOMMENDATIONS: Continue Slow-Mag at 64 mg twice a day and IV fluid with KCl infusion. Continue Cardizem 30 mg p.o. every 8 hours. Consider an additional dose of intravenous magnesium sulfate replacement of 1 g today. Tru Vinson MD
--- NOTE | 2018-01-18 08:54 | CP.PCM.DIS ---
Provider - Provider Date of Admission: 01/10/18 03:59 Attending physician: Lex Patel MD Time Spent in preparation of Discharge (in minutes): 45 Diagnosis - Discharge Diagnosis (1) GIB (gastrointestinal bleeding) Status: Acute (2) Hypokalemia Status: Acute (3) Anxiety Status: Acute (4) C. difficile colitis Status: Acute (5) COPD (chronic obstructive pulmonary disease) Status: Acute (6) Dehydration Status: Acute (7) HTN (hypertension) Status: Acute (8) PAD (peripheral artery disease) Status: Acute Hospital Course - Lab Results Lab Results: Most Recent Lab Values WBC 7.1 K/uL (4.8-10.8) 01/14/18 08:07 RBC 3.48 Mil/uL (3.80-5.20) L 01/14/18 08:07 Hgb 10.7 g/dL (11.0-16.0) L 01/14/18 08:07 Hct 31.2 % (34.0-47.0) L 01/14/18 08:07 MCV 89.5 fL (81.0-99.0) D 01/14/18 08:07 MCH 30.6 pg (27.0-31.0) 01/14/18 08:07 MCHC 34.2 g/dL (33.0-37.0) 01/14/18 08:07 RDW 16.4 % (11.5-14.5) H 01/14/18 08:07 Plt Count 392 K/uL (130-400) 01/14/18 08:07 MPV 8.3 fL (7.2-11.7) 01/14/18 08:07 Neut % (Auto) 78.2 % (50.0-75.0) H 01/14/18 08:07 Lymph % (Auto) 10.6 % (20.0-40.0) L 01/14/18 08:07 [place] % (Auto) 9.4 % (0.0-10.0) 01/14/18 08:07 Eos % (Auto) 1.3 % (0.0-4.0) 01/14/18 08:07 Baso % (Auto) 0.5 % (0.0-2.0) 01/14/18 08:07 Neut # (Auto) 5.5 K/uL (1.8-7.0) 01/14/18 08:07 Lymph # (Auto) 0.7 K/uL (1.0-4.3) L 01/14/18 08:07 [place] # (Auto) 0.7 K/uL (0.0-0.8) 01/14/18 08:07 Eos # (Auto) 0.1 K/uL (0.0-0.7) 01/14/18 08:07 Baso # (Auto) 0.0 K/uL (0.0-0.2) 01/14/18 08:07 Neutrophils % (Manual) 79 % (50-75) H 01/12/18 07:02 Band Neutrophils % 1 % (0-2) 01/12/18 07:02 Lymphocytes % (Manual) 10 % (20-40) L 01/12/18 07:02 Monocytes % (Manual) 8 % (0-10) 01/12/18 07:02 Eosinophils % (Manual) 1 % (0-4) 01/12/18 07:02 Basophils % (Manual) 1 % (0-2) 01/12/18 07:02 Platelet Estimate Normal (NORMAL) 01/12/18 07:02 Polychromasia Slight 01/11/18 07:15 Hypochromasia (manual) Slight 01/12/18 07:02 Poikilocytosis (manual Slight 01/12/18 07:02 Anisocytosis (manual) Slight 01/12/18 07:02 Tarah Cells Slight 01/12/18 07:02 PT 16.8 SECONDS (9.7-12.2) H 01/10/18 03:12 INR 1.5 01/10/18 03:12 APTT 33 SECONDS (21-34) 01/10/18 03:12 pO2 25 mm/Hg (30-55) L 01/10/18 02:56 VBG pH 7.37 (7.32-7.43) 01/10/18 02:56 VBG pCO2 38 mmHg (40-60) L 01/10/18 02:56 VBG HCO3 21.2 mmol/L 01/10/18 02:56 VBG Total CO2 23.2 mmol/L (22-28) 01/10/18 02:56 VBG O2 Sat (Calc) 46.5 % (40-65) 01/10/18 02:56 VBG Base Excess -2.9 mmol/L (0.0-2.0) L 01/10/18 02:56 VBG Potassium 2.2 mmol/L (3.6-5.2) L* 01/10/18 02:56 Sodium 141.0 mmol/l (132-148) 01/10/18 02:56 Chloride 114.0 mmol/L (98-107) H 01/10/18 02:56 Glucose 35 mg/dl (65-105) L* D 01/10/18 02:56 Lactate 0.7 mmol/L (0.7-2.1) 01/10/18 02:56 Crit Value Called To Roseline boone rn 01/10/18 02:56 Crit Value Called By Ingrid oden rt 01/10/18 02:56 Crit Value Read Back Y 01/10/18 02:56 Blood Gas Notified Time 305 01/10/18 02:56 Sodium 130 mmol/L (132-148) L 01/17/18 06:47 Potassium 4.8 mmol/L (3.6-5.2) 01/17/18 06:47 Chloride 102 mmol/L (98-107) 01/17/18 06:47 Carbon Dioxide 23 mmol/L (22-30) 01/17/18 06:47 Anion Gap 9 (10-20) L 01/17/18 06:47 BUN 3 mg/dL (7-17) L 01/17/18 06:47 Creatinine 0.4 mg/dL (0.7-1.2) L 01/17/18 06:47 Est GFR ( Amer) > 60 01/17/18 06:47 Est GFR (Non-Af Amer) > 60 01/17/18 06:47 POC Glucose (mg/dL) 210 mg/dL (65-110) H 01/17/18 17:05 Random Glucose 65 mg/dL (65-105) 01/17/18 06:47 Uric Acid 1.6 mg/dL (2.2-7.5) L 01/14/18 08:07 Calcium 8.0 mg/dl (8.6-10.4) L 01/17/18 06:47 Magnesium 1.3 mg/dL (1.6-2.3) L 01/17/18 06:47 Total Bilirubin 0.3 mg/dL (0.2-1.3) 01/11/18 07:15 AST 25 U/L (14-36) 01/11/18 07:15 ALT 30 U/L (9-52) 01/11/18 07:15 Alkaline Phosphatase 78 U/L (38-126) 01/11/18 07:15 Total Protein 4.2 g/dL (6.3-8.3) L 01/11/18 07:15 Albumin 2.2 g/dL (3.5-5.0) L 01/11/18 07:15 Globulin 2.0 gm/dL (2.2-3.9) L 01/11/18 07:15 Albumin/Globulin Ratio 1.1 (1.0-2.1) 01/11/18 07:15 Venous Blood Potassium 2.2 mmol/L (3.6-5.2) L* 01/10/18 02:56 Urine Color Yellow (YELLOW) 01/12/18 07:02 Urine Clarity Clear (Clear) 01/12/18 07:02 Urine pH 7.0 (5.0-8.0) 01/12/18 07:02 Ur Specific [place] 1.009 (1.003-1.030) 01/12/18 07:02 Urine Protein Negative mg/dL (NEGATIVE) 01/12/18 07:02 Urine Glucose (UA) 3+ mg/dL (Normal) H 01/12/18 07:02 Urine Ketones Negative mg/dL (NEGATIVE) 01/12/18 07:02 Urine Blood 1+ (NEGATIVE) H 01/12/18 07:02 Urine Nitrate Negative (NEGATIVE) 01/12/18 07:02 Urine Bilirubin Negative (NEGATIVE) 01/12/18 07:02 Urine Urobilinogen Normal mg/dL (0.2-1.0) 01/12/18 07:02 Ur Leukocyte Esterase Neg [place]/uL (Negative) 01/12/18 07:02 Urine WBC (Auto) 3 /hpf (0-5) 01/12/18 07:02 Urine RBC (Auto) 1 /hpf (0-3) 01/12/18 07:02 Urine Yeast (Budding) Few /hpf (NEGATIVE) H 01/12/18 07:02 Stool Occult Blood Positive (NEGATIVE) H 01/12/18 20:53 Blood Type O POSITIVE 01/10/18 03:52 Antibody Screen Negative 01/10/18 03:52 - Hospital Course Hospital Course: 82F with hx of COPD, gastritis, duodenal ulcers and CDiff with signs of gi bleed #Acute blood loss anemia due to GI bleed: Stable. Bleeding scan noted no active bleeding. #Duodenal ulcer #Gastritis #Severely Malnourished #Recent C. Difficile infection: Still with loose stools. CSPY on 01/12 with nonbleeding int hemorrhoids #COPD, HTN, Anxiety #Sacral ulcer Plan: -Checking C diff -Continue supportive care -EGD 12/26/17 benign w/out evidence for cause of active rectal bleeding and congested mucosa in ascending colon s/p biopsy -Continue PPI PO daily -Follow Hgb transfuse pRBCs for Hb < 7 Discharge Exam - Head Exam Head Exam: ATRAUMATIC, NORMAL INSPECTION - Eye Exam Eye Exam: EOMI, Normal appearance, PERRL Pupil Exam: NORMAL ACCOMODATION, PERRL - ENT Exam ENT Exam: Mucous Membranes Moist - Respiratory Exam Respiratory Exam: NORMAL BREATHING PATTERN - Cardiovascular Exam Cardiovascular Exam: REGULAR RHYTHM - GI/Abdominal Exam GI & Abdominal Exam: Normal Bowel Sounds Discharge Plan - Follow Up Plan Condition: STABLE Disposition: REHAB FACILITY/REHAB UNIT Instructions: High Fiber Diet, Heart Failure, Adult (DC), Colonoscopy (DC), Diverticulosis (DC), Gastrointestinal Bleeding (DC), Hypokalemia (DC) Additional Instructions: Please call Dr. Patel upon patient arrival to [facility] facility Continue medication as per med rec. Please repeat CBC, BMP , on Monday and week Referrals: Catalino Pacheco MD [Staff Provider] -
[2018-01-18] MEDS ORDERED: Pantoprazole 40 mg EC Tab PO SCH (10:00)
== END 2018-01-17 17:46 | DRG 377 ==
LOC: C.ER 00:51 → C.9E 03:59 → C.6T 04:15
PROVIDERS: ADMIT Internal Medicine; ATTEND Internal Medicine
PROC: 30233N1 Transfusion of Nonautologous Red Blood Cells into Peripheral Vein, Percutaneous Approach (ICD-10-PCS; 2018-01-10)
PROC: 0DBK8ZX Excision of Ascending Colon, Via Natural or Artificial Opening Endoscopic, Diagnostic (ICD-10-PCS; principal; 2018-01-12 11:36)
DX: K92.2 Gastrointestinal hemorrhage, unspecified (principal); E43 Unspecified severe protein-calorie malnutrition; D62 Acute posthemorrhagic anemia; E87.1 Hypo-osmolality and hyponatremia; I45.2 Bifascicular block; I47.1 Supraventricular tachycardia; A04.72 Enterocolitis due to Clostridium difficile, not specified as recurrent; E03.9 Hypothyroidism, unspecified; E86.0 Dehydration; E83.51 Hypocalcemia; E83.42 Hypomagnesemia; E87.6 Hypokalemia; F03.90 Unspecified dementia, unspecified severity, without behavioral disturbance, psychotic disturbance, mood disturbance, and anxiety; I11.0 Hypertensive heart disease with heart failure; I27.29 Other secondary pulmonary hypertension; F41.9 Anxiety disorder, unspecified; I87.8 Other specified disorders of veins; J44.9 Chronic obstructive pulmonary disease, unspecified; I49.1 Atrial premature depolarization; I48.91 Unspecified atrial fibrillation; I50.9 Heart failure, unspecified; I73.9 Peripheral vascular disease, unspecified; L89.159 Pressure ulcer of sacral region, unspecified stage; E16.2 Hypoglycemia, unspecified

== ENCOUNTER 2018-02-05 17:12 | Inpatient (IN) | payer MEDICARE, MEDICAID ==
[2018-02-05 17:12] VITALS: PULSE 155; BMI 18.1
[2018-02-05] MEDS ORDERED: Vancomycin 1 gm/NS 200 ml 1 GM/200 ML BAG IVPB STA (17:48)
[2018-02-05] MEDS ORDERED: Sodium Chloride 0.9% 1,000 ML IV ONE (17:48)
[2018-02-05] MEDS ORDERED: Aztreonam 2 GM in Sodium Chloride 0.9% 100 ML IVPB STA (17:48)
--- NOTE | 2018-02-05 17:54 | C.PDOC ---
History Of Present Illness HPI: Patient is an 82 year old female with history of COPD, HTN , heart failure, PVD, heart failure who was sent in from the [facility] for O2 sat in 80s, elevated white count at 21.6, elevated sodium at 163, low potassium at 3.2. Patient is nonverbal and unable to provide history. History obtained from [facility] records and prior notes. Unable to obtain ROS Allergies: NKDA Code status: full code Time Seen by Provider: 02/05/18 17:42 Chief Complaint (Nursing): Shortness Of Breath Past Medical History Vital Signs: Last Vital Signs Temp 100.4 F H 02/05/18 20:21 Pulse 120 H 02/05/18 20:21 Resp 22 02/05/18 20:21 BP 125/84 02/05/18 20:21 Pulse Ox 98 02/05/18 20:21 - Medical History PMH: Anxiety, Arthritis, Atrial Fibrillation, CHF, COPD, Dementia, Emphysema, Gastritis, HTN, Hypothyroidism Denies: Chronic Kidney Disease Surgical History: Coronary Stent Denies: Pacemaker - [facility] Procedures ANGIOPLASTY OF OTHER NON-CORONARY VESSEL(S) (01/22/15) ASSISTANCE WITH RESPIRATORY VENTILATION, >96 HRS, CPAP (12/15/17) EXCISION OF ASCENDING COLON, ENDO, DIAGN (01/10/18) EXCISION OF DUODENUM, ENDO, DIAGN (11/25/17) EXCISION OF STOMACH, ENDO, DIAGN (12/15/17) INSEJ [id number] PERIPHERAL NON-CORONARY VES STENT(S) (01/22/15) INSERTION OF INFUSION DEV INTO SUP VENA CAVA, PERC APPROACH (12/15/17) INSERTION OF TWO VASCULAR STENTS (01/22/15) INSPECTION OF LOWER INTESTINAL TRACT, ENDO (11/25/17) PROCEDURE ON TWO VESSELS (01/22/15) RADICAL EXCIS SKIN LES (10/29/12) RESPIRATORY VENTILATION, 24-96 CONSECUTIVE HOURS (11/25/17) TRANSFUSE NONAUT RED BLOOD CELLS IN PERIPH VEIN, PERC (01/10/18) Family History: States: Unknown Family Hx - Social History Hx Tobacco Use: No Hx Alcohol Use: No Hx Substance Use: No - Immunization History Hx Tetanus Toxoid Vaccination: Yes Hx Influenza Vaccination: Yes (04/2017) Hx Pneumococcal Vaccination: Yes (10/13/17) Review Of Systems Review Of Systems: ROS cannot be obtained secondary to pt's inabilty to answer questions. Physical Exam - Physical Exam Appears: No Acute Distress, Other (Thin) Skin: Dry, No Rash, Other (Feels febrile to touch) Head: Atraumatic, Normacephalic Eye(s): bilateral: EOMI Cardiovascular: Rhythm Regular (Tachycardic) Respiratory: Decreased Breath Sounds Gastrointestinal/Abdominal: Bowel Sounds, Soft, No Tenderness, No Mass, No Distention, No Guarding, No Rebound, No Ascites Back: Other (Sacral ulcer bandaged) Extremity: No Pedal Edema, No Calf Tenderness Pulses: Left Dorsalis Pedis: Normal, Right Dorsalis Pedis: Normal Neurological/Psych: No Response To Commands, Other (Nonverbal, awake and alert but does not respond to commands) ED Course And Treatment - Laboratory Results Result Diagrams: 02/05/18 18:00 02/05/18 18:00 Interpretation Of ECG: Sinus tachycardia at 151 with PACs - Radiology CXR: Viewed By Me (no acute infiltrate) Progress Note: Patient's condition remained unchanged. Reassessment Condition: Unchanged Medical Decision Making Medical Decision Making: Patient was found to be febrile, treated with Tylenol 650mg WI. EKG and CXR were ordered. Patient was started on IV Vancomycin and IV Aztreonam. Patient was given NS IV fluids while in the ED. Blood cultures and urine cultures were sent. Case discussed with Dr. Isra Bailey, PGY1 Disposition Discussed With : Lex Patel Doctor Will See Patient In The: Hospital - Disposition Disposition: HOSPITALIZED Disposition Time: 19:50 Condition: FAIR - Clinical Impression Clinical Impression: Urinary tract infection
[2018-02-05 18:04] LABS: ABG ALLEN TEST POS; ARTERIAL BLOOD GAS HCO3 22.5 mmol/L (21-28); ARTERIAL BLOOD GAS O2 SAT 99.5 % (95-98); ARTERIAL BLOOD GAS PCO2 28 mm/Hg (35-45); ARTERIAL BLOOD GAS PH 7.45 (7.35-7.45); ARTERIAL BLOOD GAS PO2 140 mm/Hg (80-100); ARTERIAL BLOOD GAS TCO2 20.4 mmol/L (22-28)
[2018-02-05 18:05] LABS: BASO # 0.2 K/uL (0.0-0.2); BASO % 0.8 % (0.0-2.0); EOS % 0.1 % (0.0-4.0); HEMOGLOBIN 10.9 g/dL (11.0-16.0); LYMPH % 5.4 % (20.0-40.0); MEAN CORPUSCULAR HGB CONC 33.2 g/dL (33.0-37.0); MEAN PLATELET VOLUME 8.4 fL (7.2-11.7); MONO # 1.6 K/uL (0.0-0.8); MONO % 8.3 % (0.0-10.0); NEUT # 16.1 K/uL (1.8-7.0); NEUT % 85.4 % (50.0-75.0); NRBC % 0.4 % (0.0-2.0); PLATELET COUNT 330 K/uL (130-400)
[2018-02-05 18:06] LABS: MEAN CELL VOLUME 93.5 fL (81.0-99.0); WHITE BLOOD COUNT 18.9 K/uL (4.8-10.8)
[2018-02-05 18:14] LABS: INR 1.7; PROTHROMBIN TIME 18.1 SECONDS (9.7-12.2)
[2018-02-05 18:20] LABS: ALB/GLOB RATIO 1.1 (1.0-2.1); ALBUMIN 2.9 g/dL (3.5-5.0); CALCIUM 8.4 mg/dl (8.6-10.4)
[2018-02-05 18:45] LABS: ANISOCYTOSIS SLIGHT; HYPOCHROMIC SLIGHT; LYMPHOCYTE 7 % (20-40); MONOCYTE 6 % (0-10); NEUTROPHIL 87 % (50-75); PLATELET ESTIMATE NORMAL (NORMAL); POIKILOCYTOSIS SLIGHT; TARGET CELLS SLIGHT; TOTAL CELLS COUNTED 100
[2018-02-05 18:46] LABS: BURR CELLS SLIGHT; GIANT PLATELETS PRESENT; LARGE PLATELETS PRESENT
[2018-02-05 19:06] LABS: SQUAMOUS EPITHIAL 2 /hpf (0-5); URINE BACTERIA MOD (<OCC); URINE BILIRUBIN NEGATIVE (NEGATIVE); URINE BLOOD 1+ (NEGATIVE); URINE CLARITY Hazy (Clear); URINE COLOR Amber (YELLOW); URINE GLUCOSE (UA) NORMAL (Normal); URINE HYALINE CAST >20 /lpf (0-2); URINE LEUKOCYTE ESTERASE 3+ Leu/uL (Negative); URINE PROTEIN 2+ mg/dL (NEGATIVE); WBC CLUMPS FEW /hpf
[2018-02-05] MEDS ORDERED: Aztreonam 2 GM in Sodium Chloride 0.9% 100 ML IVPB SCH (20:00)
[2018-02-05] MEDS ORDERED: Vitamins A & D Oint UD Foilpak EXT PRN (20:04)
[2018-02-05] MEDS: Dextrose 5%/0.45% NS 1,000 ML IV SCH (20:54)
[2018-02-05] MEDS: Fluticasone-Salmeterol 250-50mcg Diskus INH SCH (20:55)
[2018-02-05] MEDS: Albuterol-Ipratrop 3 mg / 0.5 (3 ml) UD INH SCH (20:55)
[2018-02-05] MEDS: Sucralfate 1 gm/10 ml Oral Susp UD PO SCH (21:57)
--- NOTE | 2018-02-05 23:52 | CP.PCM.HP ---
Present on Admission - Present on Admission Any Indicators Present on Admission: No Past Patient History - Infectious Disease Hx of Infectious Diseases: None - Past Medical History & Family History Past Medical History?: Yes - Past Social History Smoking Status: Unknown If Ever Smoked - CARDIAC Hx Atrial Fibrillation: Yes Hx Congestive Heart Failure: Yes Hx Hypertension: Yes Hx Pacemaker: No - PULMONARY Hx Chronic Obstructive Pulmonary Disease (COPD): Yes Hx Emphysema: Yes - NEUROLOGICAL Hx Dementia: Yes - HEENT Hx HEENT Problems: No - RENAL Hx Chronic Kidney Disease: No - ENDOCRINE/METABOLIC Hx Hypothyroidism: Yes - HEMATOLOGICAL/ONCOLOGICAL Hx Blood Disorders: No Hx Blood Transfusions: No Hx Cancer: Yes ("STOMACH") - INTEGUMENTARY Hx Dermatological Problems: No - MUSCULOSKELETAL/RHEUMATOLOGICAL Hx Arthritis: Yes - GASTROINTESTINAL Hx Gastritis: Yes - GENITOURINARY/GYNECOLOGICAL Hx Genitourinary Disorders: No - PSYCHIATRIC Hx Anxiety: Yes Hx Substance Use: No - SURGICAL HISTORY Hx Coronary Stent: Yes - ANESTHESIA Hx Anesthesia: Yes Hx Anesthesia Reactions: No Hx Malignant Hyperthermia: No Meds Allergies/Adverse Reactions: Allergies Allergy/AdvReac Type Severity Reaction Status Date / Time No Known Allergies Allergy Verified 01/10/18 01:16 Results - Vital Signs Recent Vital Signs: Last Vital Signs Temp 99.6 F 02/05/18 23:12 Pulse 120 H 02/05/18 23:12 Resp 20 02/05/18 23:12 BP 112/80 02/05/18 23:12 Pulse Ox 98 02/05/18 23:12 - Labs Result Diagrams: 02/07/18 04:43 02/07/18 04:43 Labs: Laboratory Results - last 24 hr 02/05/18 02/05/18 02/05/18 17:55 18:00 18:00 WBC 18.9 H D RBC 3.50 L Hgb 10.9 L Hct 32.7 L MCV 93.5 D MCH 31.0 MCHC 33.2 RDW 20.0 H Plt Count 330 MPV 8.4 Neut % (Auto) 85.4 H Lymph % (Auto) 5.4 L [place] % (Auto) 8.3 Eos % (Auto) 0.1 Baso % (Auto) 0.8 Neut # (Auto) 16.1 H Lymph # (Auto) 1.0 [place] # (Auto) 1.6 H Eos # (Auto) 0.0 Baso # (Auto) 0.2 Neutrophils % (Manual) 87 H Lymphocytes % (Manual) 7 L Monocytes % (Manual) 6 Platelet Estimate Normal Large Platelets Present Giant Platelets Present Hypochromasia (manual) Slight Poikilocytosis (manual Slight Anisocytosis (manual) Slight Target Cells Slight Donnelly Cells Slight PT 18.1 H INR 1.7 APTT 34 Puncture Site Rba pCO2 28 L pO2 140 H HCO3 22.5 ABG pH 7.45 ABG Total CO2 20.4 L ABG O2 Saturation 99.5 H ABG Base Excess -3.2 L Jason Test Pos ABG Potassium 2.9 L A-a O2 Difference 538.0 Respiratory Index 3.8 Sodium 158.0 H Chloride 126.0 H Glucose 87 Lactate 1.6 FiO2 100.0 Potassium Carbon Dioxide Anion Gap BUN Creatinine Est GFR ( Amer) Est GFR (Non-Af Amer) Random Glucose Calcium Phosphorus Magnesium Total Bilirubin AST ALT Alkaline Phosphatase Total Protein Albumin Globulin Albumin/Globulin Ratio Arterial Blood Potassium 2.9 L Urine Color Urine Clarity Urine pH Ur Specific [place] Urine Protein Urine Glucose (UA) Urine Ketones Urine Blood Urine Nitrate Urine Bilirubin Urine Urobilinogen Ur Leukocyte Esterase Urine WBC (Auto) Urine RBC (Auto) Urine WBC Clumps (Auto) Ur Squamous Epith Cells Ur Transition Epith Cell Urine Bacteria Hyaline Casts Urine Yeast (Budding) 02/05/18 02/05/18 18:00 18:51 WBC RBC Hgb Hct MCV MCH MCHC RDW Plt Count MPV Neut % (Auto) Lymph % (Auto) [place] % (Auto) Eos % (Auto) Baso % (Auto) Neut # (Auto) Lymph # (Auto) [place] # (Auto) Eos # (Auto) Baso # (Auto) Neutrophils % (Manual) Lymphocytes % (Manual) Monocytes % (Manual) Platelet Estimate Large Platelets Giant Platelets Hypochromasia (manual) Poikilocytosis (manual Anisocytosis (manual) Target Cells Donnelly Cells PT INR APTT Puncture Site pCO2 pO2 HCO3 ABG pH ABG Total CO2 ABG O2 Saturation ABG Base Excess Jason Test ABG Potassium A-a O2 Difference Respiratory Index Sodium 159 H Chloride 126 H D Glucose Lactate FiO2 Potassium 3.3 L Carbon Dioxide 20 L Anion Gap 17 BUN 33 H Creatinine 1.4 H Est GFR ( Amer) 44 Est GFR (Non-Af Amer) 36 Random Glucose 98 Calcium 8.4 L Phosphorus 4.0 Magnesium 1.8 Total Bilirubin 0.4 AST 17 ALT 25 Alkaline Phosphatase 93 Total Protein 5.5 L Albumin 2.9 L D Globulin 2.6 Albumin/Globulin Ratio 1.1 Arterial Blood Potassium Urine Color Tonia Urine Clarity Hazy Urine pH 5.0 Ur Specific [place] 1.025 Urine Protein 2+ H Urine Glucose (UA) Normal Urine Ketones Trace Urine Blood 1+ H Urine Nitrate Negative Urine Bilirubin Negative Urine Urobilinogen 2.0 H Ur Leukocyte Esterase 3+ H Urine WBC (Auto) 112 H Urine RBC (Auto) 18 H Urine WBC Clumps (Auto) Few H Ur Squamous Epith Cells 2 Ur Transition Epith Cell 1 Urine Bacteria Mod H Hyaline Casts >20 H Urine Yeast (Budding) Mod H
[2018-02-06] MEDS ORDERED: Albuterol-Ipratrop 3 mg / 0.5 (3 ml) UD ONE ×2 (00:25→02:15)
[2018-02-06] MEDS ORDERED: Aztreonam 2 GM in Sodium Chloride 0.9% 100 ML IVPB SCH (02:00)
[2018-02-06] MEDS: Albuterol-Ipratrop 3 mg / 0.5 (3 ml) UD INH SCH ×3 (02:15→13:21)
[2018-02-06 03:17] LABS: VENOUS BLOOD GAS BASE EXCESS -6.4 mmol/L (0.0-2.0); VENOUS BLOOD GAS PCO2 33 mmHg (40-60); VENOUS BLOOD GAS PO2 26 mm/Hg (30-55); VENOUS BLOOD PH 7.35 (7.32-7.43)
--- NOTE | 2018-02-06 03:17 | CP.PCM.CON ---
History of Present Illness - History of Present Illness History of Present Illness: 82 year old female from [place] with history of COPD, HTN, heart failure, PVD, atrial fibrillation,dementia,hypothyroidism,bedbound sent in from the skilled nursing for O2 sat in 80s, elevated white count at 21.6, elevated sodium at 163, low potassium at 3.2. Patient is nonverbal and unable to provide history. History obtained from skilled nursing records ,Er notes,sand prior notes. In ER patient received IV fluids, became short of breath,hypotensive,placed on BIPAP Discharged from hospital 01/17/18 following admission for GI bleed,dehydration Spoke to son for consent for Central line.He didnot want patient intubated, agreed to cardiac compression and all other treatment Review of Systems - Review of Systems Review of Systems: unable to get review of systems due to mental status Past Patient History - Infectious Disease Hx of Infectious Diseases: None - Past Medical History & Family History Past Medical History?: Yes - Past Social History Smoking Status: Unknown If Ever Smoked - CARDIAC Hx Atrial Fibrillation: Yes Hx Congestive Heart Failure: Yes Hx Hypertension: Yes Hx Pacemaker: No - PULMONARY Hx Chronic Obstructive Pulmonary Disease (COPD): Yes Hx Emphysema: Yes - NEUROLOGICAL Hx Dementia: Yes - HEENT Hx HEENT Problems: No - RENAL Hx Chronic Kidney Disease: No - ENDOCRINE/METABOLIC Hx Hypothyroidism: Yes - HEMATOLOGICAL/ONCOLOGICAL Hx Blood Disorders: No Hx Blood Transfusions: No Hx Cancer: Yes ("STOMACH") - INTEGUMENTARY Hx Dermatological Problems: No - MUSCULOSKELETAL/RHEUMATOLOGICAL Hx Arthritis: Yes - GASTROINTESTINAL Hx Gastritis: Yes - GENITOURINARY/GYNECOLOGICAL Hx Genitourinary Disorders: No - PSYCHIATRIC Hx Anxiety: Yes Hx Substance Use: No - SURGICAL HISTORY Hx Coronary Stent: Yes - ANESTHESIA Hx Anesthesia: Yes Hx Anesthesia Reactions: No Hx Malignant Hyperthermia: No Meds Allergies/Adverse Reactions: Allergies Allergy/AdvReac Type Severity Reaction Status Date / Time No Known Allergies Allergy Verified 01/10/18 01:16 - Medications Medications: Current Medications Acetaminophen (Tylenol 325mg Tab) 650 mg PO Q6 PRN PRN Reason: Pain, moderate (4-7) Albuterol/Ipratropium (Duoneb 3 Mg/0.5 Mg (3 Ml) Ud) 3 ml INH RQ6 [facility] Last Admin: 02/06/18 02:15 Dose: Not Given Diltiazem HCl (Cardizem) 30 mg PO Q8 [facility] Last Admin: 02/05/18 21:57 Dose: 30 mg Enoxaparin Sodium (Lovenox) 30 mg SC DAILY [facility] Dextrose/Sodium Chloride (Dextrose 5%/0.45% Ns 1000 Ml) 1,000 mls @ 100 mls/hr IV .Q10H [facility] Last Admin: 02/05/18 20:54 Dose: 100 mls/hr Aztreonam 2 gm/ Sodium (Chloride) 100 mls @ 200 mls/hr IVPB Q8H [facility] PRN Reason: Protocol Last Admin: 02/06/18 03:09 Dose: 200 mls/hr Levothyroxine Sodium (Synthroid) 100 mcg PO 0630 [facility] Lorazepam (Ativan) 0.5 mg PO BID [facility] Roflumilast (Daliresp) 500 mcg PO DAILY [facility] Rosuvastatin Calcium (Crestor) 5 mg PO HS [facility] Last Admin: 02/05/18 21:57 Dose: 5 mg Fluticasone/Salmeterol (Advair Diskus 250/50) 1 puff INH RQ12 [facility] Last Admin: 02/05/18 20:55 Dose: 1 puff Sucralfate (Carafate Oral Susp) 1 gm PO ACBHS [facility] Last Admin: 02/05/18 21:57 Dose: 1 gm Vitamin A (Vitamin A & D Oint Ud Foilpak) 1 ea EXT Q8 PRN PRN Reason: Dry SKIN Physical Exam - Constitutional Appears: In Acute Distress, Cachectic, Chronically Ill - Head Exam Head Exam: ATRAUMATIC, NORMAL INSPECTION, NORMOCEPHALIC - Eye Exam Pupil Exam: PERRL Additional comments: pallor+ - ENT Exam ENT Exam: Mucous Membranes Dry, Normal External Ear Exam - Neck Exam Neck exam: Positive for: Normal Inspection - Respiratory Exam Respiratory Exam: Respiratory Distress. absent: Stridor Additional comments: decreased airentry bilaterally with bibasal scattered rales - Cardiovascular Exam Cardiovascular Exam: Tachycardia, Irregular Rhythm. absent: JVD - GI/Abdominal Exam GI & Abdominal Exam: Normal Bowel Sounds, Soft - Extremities Exam Extremities exam: Negative for: pedal edema, pedal pulses present - Neurological Exam Additional comments: awake,responds to pain,doesnot answer questions - Skin Skin Exam: Dry Results - Vital Signs Recent Vital Signs: Last Vital Signs Temp 99.6 F 02/05/18 23:12 Pulse 125 H 02/06/18 01:35 Resp 22 02/06/18 01:06 BP 99/68 L 02/06/18 01:06 Pulse Ox 96 02/06/18 01:06 - Labs Result Diagrams: 02/05/18 18:00 02/05/18 18:00 Labs: Laboratory Results - last 24 hr 02/05/18 02/05/18 02/05/18 17:55 18:00 18:00 WBC 18.9 H D RBC 3.50 L Hgb 10.9 L Hct 32.7 L MCV 93.5 D MCH 31.0 MCHC 33.2 RDW 20.0 H Plt Count 330 MPV 8.4 Neut % (Auto) 85.4 H Lymph % (Auto) 5.4 L [place] % (Auto) 8.3 Eos % (Auto) 0.1 Baso % (Auto) 0.8 Neut # (Auto) 16.1 H Lymph # (Auto) 1.0 [place] # (Auto) 1.6 H Eos # (Auto) 0.0 Baso # (Auto) 0.2 Neutrophils % (Manual) 87 H Lymphocytes % (Manual) 7 L Monocytes % (Manual) 6 Platelet Estimate Normal Large Platelets Present Giant Platelets Present Hypochromasia (manual) Slight Poikilocytosis (manual Slight Anisocytosis (manual) Slight Target Cells Slight [place] Cells Slight PT 18.1 H INR 1.7 APTT 34 Puncture Site Rba pCO2 28 L pO2 140 H HCO3 22.5 ABG pH 7.45 ABG Total CO2 20.4 L ABG O2 Saturation 99.5 H ABG Base Excess -3.2 L Jason Test Pos ABG Potassium 2.9 L A-a O2 Difference 538.0 Respiratory Index 3.8 Sodium 158.0 H Chloride 126.0 H Glucose 87 Lactate 1.6 FiO2 100.0 Potassium Carbon Dioxide Anion Gap BUN Creatinine Est GFR ( Amer) Est GFR (Non-Af Amer) Random Glucose Calcium Phosphorus Magnesium Total Bilirubin AST ALT Alkaline Phosphatase Total Protein Albumin Globulin Albumin/Globulin Ratio Arterial Blood Potassium 2.9 L Urine Color Urine Clarity Urine pH Ur Specific [place] Urine Protein Urine Glucose (UA) Urine Ketones Urine Blood Urine Nitrate Urine Bilirubin Urine Urobilinogen Ur Leukocyte Esterase Urine WBC (Auto) Urine RBC (Auto) Urine WBC Clumps (Auto) Ur Squamous Epith Cells Ur Transition Epith Cell Urine Bacteria Hyaline Casts Urine Yeast (Budding) 02/05/18 02/05/18 18:00 18:51 WBC RBC Hgb Hct MCV MCH MCHC RDW Plt Count MPV Neut % (Auto) Lymph % (Auto) [place] % (Auto) Eos % (Auto) Baso % (Auto) Neut # (Auto) Lymph # (Auto) [place] # (Auto) Eos # (Auto) Baso # (Auto) Neutrophils % (Manual) Lymphocytes % (Manual) Monocytes % (Manual) Platelet Estimate Large Platelets Giant Platelets Hypochromasia (manual) Poikilocytosis (manual Anisocytosis (manual) Target Cells [place] Cells PT INR APTT Puncture Site pCO2 pO2 HCO3 ABG pH ABG Total CO2 ABG O2 Saturation ABG Base Excess Jason Test ABG Potassium A-a O2 Difference Respiratory Index Sodium 159 H Chloride 126 H D Glucose Lactate FiO2 Potassium 3.3 L Carbon Dioxide 20 L Anion Gap 17 BUN 33 H Creatinine 1.4 H Est GFR ( Amer) 44 Est GFR (Non-Af Amer) 36 Random Glucose 98 Calcium 8.4 L Phosphorus 4.0 Magnesium 1.8 Total Bilirubin 0.4 AST 17 ALT 25 Alkaline Phosphatase 93 Total Protein 5.5 L Albumin 2.9 L D Globulin 2.6 Albumin/Globulin Ratio 1.1 Arterial Blood Potassium Urine Color Tonia Urine Clarity Hazy Urine pH 5.0 Ur Specific [place] 1.025 Urine Protein 2+ H Urine Glucose (UA) Normal Urine Ketones Trace Urine Blood 1+ H Urine Nitrate Negative Urine Bilirubin Negative Urine Urobilinogen 2.0 H Ur Leukocyte Esterase 3+ H Urine WBC (Auto) 112 H Urine RBC (Auto) 18 H Urine WBC Clumps (Auto) Few H Ur Squamous Epith Cells 2 Ur Transition Epith Cell 1 Urine Bacteria Mod H Hyaline Casts >20 H Urine Yeast (Budding) Mod H - EKG Data EKG Interpreted by: Myself Rate: Tachycardia - Imaging and Cardiology Chest x-ray Status: Image reviewed by me Assessment & Plan - Assessment and Plan (Free Text) Assessment: 1.Respiratory Failure/Hypotension,tachycardia/Dehydration/CHF r/o pneumonia/UTI. On BIPAP(no intubation as per son) Slow IV hydration antibiotics,f/u cultures 2.Electrolyte Imbalance-Hypernatremia/hypokalemia IV hydration,replace potassium 3.PVD 4.Hypothyroidism on meds 5.H/O atrial fibrillation
[2018-02-06 04:38] LABS: BASO # 0.1 K/uL (0.0-0.2); BASO % 0.8 % (0.0-2.0); EOS % 0.2 % (0.0-4.0); HEMOGLOBIN 9.4 g/dL (11.0-16.0); LYMPH # 0.6 K/uL (1.0-4.3); LYMPH % 3.8 % (20.0-40.0); MEAN CELL VOLUME 93.2 fL (81.0-99.0); MEAN CORPUSCULAR HEMOGLOBIN 29.9 pg (27.0-31.0); MEAN CORPUSCULAR HGB CONC 32.1 g/dL (33.0-37.0); MEAN PLATELET VOLUME 8.4 fL (7.2-11.7); MONO # 1.3 K/uL (0.0-0.8); MONO % 8.8 % (0.0-10.0); NEUT # 13.2 K/uL (1.8-7.0); NEUT % 86.4 % (50.0-75.0); NRBC % 0.3 % (0.0-2.0); PLATELET COUNT 255 K/uL (130-400); RBC 3.14 Mil/uL (3.80-5.20); RED CELL DISTRIBUTION WIDTH 20.3 % (11.5-14.5); WHITE BLOOD COUNT 15.3 K/uL (4.8-10.8)
[2018-02-06 05:14] LABS: ALBUMIN 2.4 g/dL (3.5-5.0); ALT/SGPT 22 U/L (9-52); AST/SGOT 20 U/L (14-36); BLOOD UREA NITROGEN 27 mg/dL (7-17); CALCIUM 7.3 mg/dl (8.6-10.4); GFR NON-AFRICAN AMERICAN 60
[2018-02-06] MEDS ORDERED: Levothyroxine 100 MCG TAB PO SCH (06:30)
[2018-02-06] MEDS: Dextrose 5%/0.45% NS 1,000 ML IV SCH ×2 (07:10→19:10)
[2018-02-06] MEDS: Sucralfate 1 gm/10 ml Oral Susp UD PO SCH ×2 (07:40→21:58)
[2018-02-06 07:47] LABS: ANISOCYTOSIS MODERATE; BANDS 1 % (0-2); BASOPHIL 1 % (0-2); HYPOCHROMIC SLIGHT; LYMPHOCYTE 4 % (20-40); MONOCYTE 7 % (0-10); NEUTROPHIL 87 % (50-75); PLATELET ESTIMATE NORMAL (NORMAL); TOTAL CELLS COUNTED 100
[2018-02-06 07:48] LABS: BURR CELLS MODERATE
[2018-02-06 08:09] LABS: B-TYPE NATRIURETIC PEPTIDE 1450 pg/mL (0-900)
[2018-02-06] MEDS: Levothyroxine 100 mcg (0.1 mg) Inj IVP SCH ×2 (09:05→10:08)
[2018-02-06] MEDS: cefTRIAXone 2 GM in Sodium Chloride 0.9% 100 ML IVPB SCH (09:09)
[2018-02-06 09:39] LABS: ABG ALLEN TEST POS; ARTERIAL BLOOD GAS O2 SAT 99.7 % (95-98); ARTERIAL BLOOD GAS PCO2 22 mm/Hg (35-45); ARTERIAL BLOOD GAS PH 7.43 (7.35-7.45); ARTERIAL BLOOD GAS PO2 114 mm/Hg (80-100); ARTERIAL BLOOD GAS TCO2 15.3 mmol/L (22-28)
[2018-02-06] MEDS: Fluticasone-Salmeterol 250-50mcg Diskus INH SCH (09:46)
[2018-02-06] MEDS: Enoxaparin 30 mg Syringe SC SCH (09:50)
--- NOTE | 2018-02-06 10:17 | RAD ---
HISTORY: r/o pneumonia COMPARISON: Chest x-ray performed 02/06/20 and 01/10/18 TECHNIQUE: Chest, one view. FINDINGS: Examination limited by patient motion and obliquity. LUNGS: External wires and leads evaluation of the underlying parenchyma. Hyperinflation. Bibasilar atelectasis. Small nodular opacities noted within the right upper lobe and lingula, possibly granulomas. No focal consolidation. Please note that chest x-ray has limited sensitivity for the detection of pulmonary masses. PLEURA: No significant pleural effusion identified. No definite pneumothorax . CARDIOVASCULAR: Heart size appears within normal limits. Ectatic uncoiled aorta containing atherosclerotic calcifications. OSSEOUS STRUCTURES: Degenerative changes. VISUALIZED UPPER ABDOMEN: Unremarkable. OTHER FINDINGS: None. IMPRESSION: Limited study. Hyperinflation. Bibasilar atelectasis. Small nodular opacities within the right upper lobe and lingula, possibly granulomas.
--- NOTE | 2018-02-06 10:40 | RAD ---
HISTORY: Sepsis Patient COMPARISON: Chest x-ray performed 01/10/18 TECHNIQUE: Chest, one view. FINDINGS: LUNGS: Hyperinflation. Emphysematous changes. Small right-sided pleural effusion and/or consolidation. No definite pneumothorax. Please note that chest x-ray has limited sensitivity for the detection of pulmonary masses. CARDIOVASCULAR: Heart size appears within normal limits. Atherosclerotic calcifications of the aorta. OSSEOUS STRUCTURES: Degenerative changes of spine and shoulders. VISUALIZED UPPER ABDOMEN: Unremarkable. OTHER FINDINGS: None. IMPRESSION: Hyperinflation. Emphysematous changes. Small right-sided pleural effusion and/or consolidation.
--- NOTE | 2018-02-06 17:31 | CARD ---
APPROVED REPORT Date of service: 02/05/2018 EKG Measurement Heart [id number] <Conclusion> Sinus tachycardia with premature atrial complexes Incomplete right bundle branch block Left anterior fascicular block Abnormal ECG
--- NOTE | 2018-02-06 22:17 | CP.PCM.PN ---
Objective - Vital Signs/Intake and Output Vital Signs (last 24 hours): Temp Pulse Resp BP Pulse Ox 98.1 F 121 H 21 93/45 L 98 02/06/18 16:00 02/06/18 18:50 02/06/18 18:50 02/06/18 21:55 02/06/18 09:42 Intake and Output: 02/06/18 02/07/18 18:59 06:59 Intake Total 716.6 346.2 Output Total 370 Balance 346.6 346.2 - Medications Medications: Current Medications Acetaminophen (Tylenol 325mg Tab) 650 mg PO Q6 PRN PRN Reason: Pain, moderate (4-7) Albuterol/Ipratropium (Duoneb 3 Mg/0.5 Mg (3 Ml) Ud) 3 ml INH RQ6 [facility] Last Admin: 02/06/18 13:21 Dose: 3 ml Diltiazem HCl (Cardizem) 30 mg PO Q8 [facility] Last Admin: 02/06/18 21:57 Dose: 30 mg Enoxaparin Sodium (Lovenox) 30 mg SC DAILY [facility] Last Admin: 02/06/18 09:50 Dose: 30 mg Dextrose/Sodium Chloride (Dextrose 5%/0.45% Ns 1000 Ml) 1,000 mls @ 100 mls/hr IV .Q10H [facility] Last Admin: 02/06/18 19:10 Dose: 100 mls/hr Ceftriaxone Sodium 2 gm/ (Sodium Chloride) 100 mls @ 100 mls/hr IVPB Q24H [facility] PRN Reason: Protocol Last Admin: 02/06/18 09:09 Dose: 100 mls/hr Vasopressin 40 units/ Sodium (Chloride) 40 mls @ 0.6 mls/hr IV .Q24H [facility]; 0.01 UNITS/MIN PRN Reason: Protocol Last Admin: 02/06/18 21:55 Dose: 0.04 units/min, 2.4 mls/hr Levothyroxine Sodium (Synthroid) 50 mcg IVP DAILY [facility] Last Admin: 02/06/18 10:08 Dose: Not Given Lorazepam (Ativan) 0.5 mg PO BID [facility] Last Admin: 02/06/18 18:36 Dose: Not Given Roflumilast (Daliresp) 500 mcg PO DAILY [facility] Last Admin: 02/06/18 09:47 Dose: Not Given Rosuvastatin Calcium (Crestor) 5 mg PO HS [facility] Last Admin: 02/06/18 21:57 Dose: 5 mg Fluticasone/Salmeterol (Advair Diskus 250/50) 1 puff INH RQ12 [facility] Last Admin: 02/06/18 09:46 Dose: Not Given Sucralfate (Carafate Oral Susp) 1 gm PO ACBHS [facility] Last Admin: 02/06/18 21:58 Dose: 1 gm Vitamin A (Vitamin A & D Oint Ud Foilpak) 1 ea EXT Q8 PRN PRN Reason: Dry SKIN - Labs Labs: 02/06/18 04:34 02/06/18 04:34 PT 18.1 SECONDS (9.7-12.2) H 02/05/18 18:00 INR 1.7 02/05/18 18:00 APTT 34 SECONDS (21-34) 02/05/18 18:00
--- NOTE | 2018-02-07 00:19 | CARD ---
APPROVED REPORT Date of service: 02/06/2018 EKG Measurement Heart [id number] <Conclusion> Multifocal atrial rhythm Left anterior fascicular block T wave abnormality, consider anterior ischemia Abnormal ECG
--- NOTE | 2018-02-07 00:21 | CARD ---
APPROVED REPORT Date of service: 02/06/2018 EKG Measurement Heart [id number] <Conclusion> Multifocal atrial tachycardia Left axis deviation Low voltage QRS Inferior-posterior infarct, age undetermined Abnormal ECG
[2018-02-07] MEDS: Albuterol-Ipratrop 3 mg / 0.5 (3 ml) UD INH SCH ×4 (01:05→20:34)
[2018-02-07] MEDS: Dextrose 5%/0.45% NS 1,000 ML IV SCH ×2 (02:42→19:01)
[2018-02-07 04:53] LABS: BASO % 0.3 % (0.0-2.0); EOS # 0.1 K/uL (0.0-0.7); EOS % 0.6 % (0.0-4.0); HEMOGLOBIN 8.4 g/dL (11.0-16.0); LYMPH # 0.8 K/uL (1.0-4.3); LYMPH % 5.3 % (20.0-40.0); MEAN CELL VOLUME 93.8 fL (81.0-99.0); MEAN PLATELET VOLUME 9.1 fL (7.2-11.7); MONO # 0.8 K/uL (0.0-0.8); MONO % 5.9 % (0.0-10.0); NEUT # 12.6 K/uL (1.8-7.0); NEUT % 87.9 % (50.0-75.0); NRBC % 0.3 % (0.0-2.0); PLATELET COUNT 209 K/uL (130-400); RBC 2.81 Mil/uL (3.80-5.20); RED CELL DISTRIBUTION WIDTH 20.6 % (11.5-14.5); WHITE BLOOD COUNT 14.3 K/uL (4.8-10.8)
[2018-02-07 05:11] LABS: ALB/GLOB RATIO 0.9 (1.0-2.1); ALBUMIN 2.3 g/dL (3.5-5.0); ALT/SGPT 26 U/L (9-52); AST/SGOT 18 U/L (14-36); BLOOD UREA NITROGEN 22 mg/dL (7-17); CALCIUM 7.5 mg/dl (8.6-10.4); GFR NON-AFRICAN AMERICAN > 60
--- NOTE | 2018-02-07 05:13 | PN ---
Copied To: Lex Patel MD Attending MD: Lex Patel MD DATE: 02/06/2018 SUBJECTIVE: The patient is weak, lethargic, tachycardic, in ICU. She is anxious. The patient is afebrile today. Her WBC is down. There is no chest pain. She is tachycardic. She is on vasopressors. PHYSICAL EXAMINATION: VITAL SIGNS: BP 93/45, pulse 121, respiratory rate 20, and temperature 98.9. LUNGS: Bilateral scattered rhonchi. CARDIOVASCULAR SYSTEM: S1, S2 are regular. ABDOMEN: Soft. ASSESSMENT: 1. Urinary tract infection, rule out septicemia due to urinary tract infection. 2. Chronic obstructive pulmonary disease. 3. Dehydration, sinus tachycardia. 4. Hypothyroidism. PLAN: Medical management. Monitor the patient. Lex Patel MD
--- NOTE | 2018-02-07 05:43 | CON ---
Copied To: Tru Vinson MD Attending MD: Tru Vinson MD DATE: 02/06/2018 CARDIOLOGY CONSULTATION REASON FOR CONSULTATION: Multifocal atrial tachycardia as well as elevated troponin. HISTORY OF PRESENT ILLNESS: The patient is an 82-year-old female who has a history of chronic obstructive lung disease; history of multifocal atrial tachycardia in the past; history of C. difficile and anemia, requiring multiple blood transfusions in the past; history of hypertension; history of advanced chronic obstructive lung disease; history of peripheral vascular disease; history of hypothyroidism who was admitted from [facility] because of abnormal electrolytes, fever as well as urinary tract infection and is currently in the intensive care unit. The patient is slightly lethargic and confused. No reported hypotension or ventricular tachycardia. The patient denies any chest pain or abdominal pain at this time. PAST MEDICAL HISTORY: History of chronic obstructive lung disease, history of multifocal atrial tachycardia, history of [id number] myocardial infarction in the recent past, history of ovarian carcinoma many years ago, history of peripheral vascular disease, and history of hypothyroidism. REVIEW OF SYSTEMS: No reported seizures. The patient was mildly hypertensive this morning. PHYSICAL EXAMINATION: GENERAL: The patient is an elderly female who does not appear to be in respiratory distress at the time of my evaluation. VITAL SIGNS: Blood pressure 91/57, heart rate 122, temperature 98.4, respirations 19. HEENT: Pale conjunctivae. CHEST: Bilateral rhonchi. HEART: S1, S2 are regular. ABDOMEN: Soft. EXTREMITIES: Significant muscle wasting and no edema. LABORATORY DATA: Today's SMA-7: Sodium 156, potassium 2.9, chloride 127, CO2 of 18, glucose 193, BUN 27, creatinine 0.9. Troponin is 0.321. TSH level is elevated at 134. Hemoglobin and hematocrit 9.4 and 29.2, white count 15.3, platelet count 255,000. INR is 1.7. The most recent chest x-ray today revealed a barrel shaped chest COPD picture, a vertical heart and widened mediastinum, no infiltrate or effusion. 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 Urinalysis was consistent with moderate bacteria, moderate yeast, few wbc's, and 3+ leukocyte esterase. ASSESSMENT: 1. Consider non-ST elevation myocardial infarction. 2. Multifocal atrial tachycardia. 3. Dehydration with hypernatremia and hypokalemia as well as prerenal azotemia. 3. History of Enterococcus faecalis urinary tract infection recently. 4. History of Clostridium difficile colitis recently. 5. Profound hypothyroidism. RECOMMENDATIONS: Continue current vasopressin, subcutaneous Lovenox at 30 mg once a day, Synthroid 50 mcg intravenously daily, dextrose half-normal saline at 100 mL an hour, Crestor 5 mg once a day, Rocephin 2 g intravenously daily. Septic workup was sent including blood cultures and I will follow that. Tru Vinson MD
[2018-02-07 05:49] LABS: ARTERIAL BLOOD GAS HCO3 19.8 mmol/L (21-28); ARTERIAL BLOOD GAS O2 SAT 99.6 % (95-98); ARTERIAL BLOOD GAS PCO2 22 mm/Hg (35-45); ARTERIAL BLOOD GAS PH 7.45 (7.35-7.45); ARTERIAL BLOOD GAS PO2 111 mm/Hg (80-100)
[2018-02-07 06:29] LABS: BANDS 1 % (0-2); LYMPHOCYTE 6 % (20-40); MONOCYTE 4 % (0-10); NEUTROPHIL 89 % (50-75); NUCLEATED RED BLOOD CELL 1 % (0-0); TOTAL CELLS COUNTED 100
[2018-02-07 06:30] LABS: ACANTHOCYTES SLIGHT; ANISOCYTOSIS SLIGHT; BURR CELLS SLIGHT; MICROCYTOSIS SLIGHT; PLATELET ESTIMATE NORMAL (NORMAL); POIKILOCYTOSIS SLIGHT; SCHISTOCYTES SLIGHT
[2018-02-07] MEDS: Sucralfate 1 gm/10 ml Oral Susp UD PO SCH ×2 (07:22→22:46)
--- NOTE | 2018-02-07 07:25 | HP ---
Copied To: Lex Patel MD Attending MD: Lex Patel MD CHIEF COMPLAINT: Fever, shortness of breath, hypoxia, acute onset times few minutes prior to transfer. HISTORY OF PRESENT ILLNESS: This is an 82-year-old -[place] female, chronically sick with history of severe/chronic obstructive pulmonary disease, peripheral vascular disease, hypertension, osteoarthritis, anxiety, and she is chronically sick on oxygen right now for a long time. She also has history of hypothyroidism. She is compliant with her medication and followup. She is currently in rehab at [facility] and she was transferred to emergency room because nurse in the retirement noticed an acute onset of shortness of breath, hypoxia, drop to 80% on pulse ox, 100% nonrebreather mask was started and ambulance was called in and the patient was transported to the emergency room. The patient is weak and she does not answer questions. She is anxious, but according to the x-rays in the ER and retirement documentation, there was low grade fever, but there is no history of changes in mental status. There is no history of any worsening cough, congestion. There is hypoxia. There is dyspnea at rest. There is no history of chest pain. The patient feels congested in the chest. The patient has nasal congestion. She denies any history of abdominal pain, nausea, vomiting, diarrhea. She denies any polyuria, polydipsia, polyphagia, and further symptomatology unable to obtain because of the patient's poor condition, poor overall status. PAST MEDICAL HISTORY: Peripheral vascular disease, hypertension, COPD, hypothyroidism, osteoarthritis. Recently, she was treated for C. diff colitis, urinary tract infection. SOCIAL HISTORY: She is an ex-smoker, non-EtOH user. CURRENT MEDICATIONS: The patient is on Dulera, diltiazem, multivitamin, Carafate, Crestor, Synthroid, Ativan, Advair, DuoNeb, Tylenol, and Questran. PHYSICAL EXAMINATION: GENERAL: An elderly female in acute distress, hypoxemic. VITAL SIGNS: Tachycardic, blood pressure , pulse 110, respiratory rate 22, temperature 100.4. SKIN: dry. Poor turgor. No bruises. No purpura. No ecchymosis. HEENT: Atraumatic, normocephalic. Positive pallor. No acute jaundice. Extraocular movements are intact. NECK: Supple. Using accessory muscle of respiration. No thyromegaly. No carotid bruit. No JVD. CHEST WALL: chest. No masses in the breasts. No deformity. LUNGS: Bilaterally decreased air entry. Few scattered rhonchi. CVS: PMI fifth intercostal space. S1, S2 regular. Tachycardic. ABDOMEN: Soft and nontender. Bowel sounds are positive. RECTAL: No masses. No bleed. EXTREMITIES: No clubbing, cyanosis, or edema. dorsalis pedis and posterior tibialis . TRA[employer] BATTERY: The patient is awake, alert and she does not talk. She moves all extremities. ASSESSMENT: 1. Urinary tract infection, rule out septicemia. The patient has urinary tract infection, retirement acquired. No catheter and there is a possibility of septicemia, high white blood cell, fever. Pending urine and blood culture. 2. Chronic obstructive pulmonary disease exacerbation. Her hypoxemia is most likely treated by poor inspiratory effort. 3. Hypertension. 4. Hypothyroidism. PLAN: Septic workup, morgan culture, antibiotics. Monitor the patient. Lex Patel MD
[2018-02-07] MEDS: Fluticasone-Salmeterol 250-50mcg Diskus INH SCH ×2 (07:28→20:34)
[2018-02-07] MEDS ORDERED: Potassium Chloride 20 mEq/15 ml LIQ UD PO ONE (08:35)
[2018-02-07] MEDS: Magnesium Sulfate 1 gm in D5W 1 GM/100 ML BAG IVPB SCH ×2 (08:54→09:28)
[2018-02-07] MEDS ORDERED: Potassium Phosphate 15 MMOLE in Sodium Chloride 0.9% 250 ML IVPB ONE (09:00)
[2018-02-07] MEDS: cefTRIAXone 2 GM in Sodium Chloride 0.9% 100 ML IVPB SCH (09:27)
[2018-02-07] MEDS: Levothyroxine 100 mcg (0.1 mg) Inj IVP SCH (10:00)
[2018-02-07] MEDS ORDERED: Albumin Human 25% (12.5 gm/50 ml) IV ONE (10:02)
[2018-02-07] MEDS ORDERED: Sodium Chloride 0.9% 500 ML IV SCH (10:15)
[2018-02-07] MEDS ORDERED: Sodium Chloride 0.9% 1,000 ML IV SCH (10:15)
[2018-02-07] MEDS: Enoxaparin 30 mg Syringe SC SCH (10:49)
--- NOTE | 2018-02-07 12:20 | CP.CCUPN ---
<YamilaDwain - Last Filed: 02/07/18 17:20> CCU Subjective - Physician Review Subjective (Free Text): Dwain Driscoll DO PGY-1, ICU progress note for Dr. Greer Pt was seen and examined at bedside. Pt reports that she only has chills, which started just prior to examination. Pt was brought a blanker. Pt is afebrile now , and was afebrile overnight. Pt denies headache, dizziness, lightheadedness, visual changes, chest pain, sob, abdominal pain, n/v/d, hematochezia, melena, urinary complaints. A 12-point ROS was reviewed and is otherwise unremarkable. CCU Objective - Vital Signs / Intake & Output Vital Signs (Last 4 hours): Vital Signs BP 02/07/18 08:55 117/65 Intake and Output (Last 8hrs): Intake & Output 02/06/18 02/07/18 02/07/18 22:59 06:59 14:59 Intake Total 858.2 919.2 549.6 Output Total 95 150 Balance 763.2 769.2 549.6 Weight 35.38 kg Intake: IV 39 40 Intake, IV Amount 719.2 819.2 409.6 Right Medial Port Femoral 19.2 19.2 9.6 Right Proximal Port 700 800 400 Femoral Oral 100 100 100 Output: Urine 95 150 Urethral (Ramos) 95 150 Other: # Bowel Movements 1 0 - Physical Exam Narrative Physical Exam (Free Text): (+) malnourished with exposed ribs \ Head: Positive for: Atraumatic, Normocephalic Pupils: Positive for: PERRL Extroacular Muscles: Positive for: EOMI Conjunctiva: Positive for: Normal Mouth: Positive for: Dry Neck: Positive for: Normal Range of Motion Respiratory/Chest: Positive for: Clear to Auscultation, Good Air Exchange. Negative for: Respiratory Distress, Accessory Muscle Use, Wheezes, Rales, Rhonchi Cardiovascular: Positive for: Regular Rate and Rhythm, Normal S1, S2, Peripheal Pulses Present ((+) 2+ bilateral radial pulses, (+) 1+ bilateral DP pulses) Abdomen: Positive for: Normal Bowel Sounds. Negative for: Tenderness, Distention, Peritoneal Signs Back: Positive for: Normal Inspection Upper Extremity: Positive for: Normal Inspection Lower Extremity: Positive for: Normal Inspection. Negative for: Edema, CALF TENDERNESS Neurological: Positive for: GCS=15 Skin: Positive for: Warm, Dry, Normal Color, Other ((+) 4 cm by 1 cm stage 3 ulcer to the apex of the sacrum, (+) 2 cm by 1 cm stage 2 ulcer to the superior aspect of the right buttocks) Psychiatric: Positive for: Alert, Oriented x 3 - Medications Active Medications: Active Medications Generic Name Dose Route Start Last Admin Trade Name Freq PRN Reason Stop Dose Admin Acetaminophen 650 mg 02/05/18 19:57 Tylenol 325mg Tab PO Q6 PRN Pain, moderate (4-7) Albuterol/Ipratropium 3 ml 02/05/18 20:00 02/07/18 07:27 Duoneb 3 Mg/0.5 Mg (3 Ml) Ud INH 3 ml RQ6 SHREYAS Administration Diltiazem HCl 30 mg 02/05/18 22:00 02/07/18 06:37 Cardizem PO Not Given Q8 SHREYAS Enoxaparin Sodium 30 mg 02/06/18 10:00 02/07/18 10:49 Lovenox SC 30 mg DAILY SHREYAS Administration Dextrose/Sodium Chloride 1,000 mls @ 100 mls/hr 02/05/18 20:00 02/07/18 02:42 Dextrose 5%/0.45% Ns 1000 Ml IV 100 mls/hr .Q10H SHREYAS Administration Ceftriaxone Sodium 2 gm/ 100 mls @ 100 mls/hr 02/06/18 09:00 02/07/18 09:27 Sodium Chloride IVPB 100 mls/hr Q24H SHREYAS Administration Protocol Vasopressin 40 units/ Sodium 40 mls @ 0.6 mls/hr 02/06/18 08:15 02/07/18 08: 55 Chloride IV 0.04 units/min .Q24H SHREYAS 2.4 mls/hr Protocol Administration 0.01 UNITS/MIN Potassium Phosphate 15 mmole/ 255 mls @ 42.5 mls/hr 02/07/18 09:00 02/07/18 09:34 Sodium Chloride IVPB 02/07/18 14:59 42.5 mls/hr ONCE ONE Administration Sodium Chloride 500 mls @ 999 mls/hr 02/07/18 10:15 02/07/18 10:50 Sodium Chloride 0.9% IV 999 mls/hr .Q31M SHREYAS Administration Levothyroxine Sodium 50 mcg 02/06/18 08:15 02/06/18 10:08 Synthroid IVP Not Given DAILY SHREYAS Lorazepam 0.5 mg 02/06/18 10:00 02/07/18 10:04 Ativan PO Not Given BID SHREYAS Roflumilast 500 mcg 02/06/18 10:00 02/07/18 10:05 Daliresp PO Not Given DAILY SHREYAS Rosuvastatin Calcium 5 mg 02/05/18 22:00 02/06/18 21:57 Crestor PO 5 mg HS SHREYAS Administration Fluticasone/Salmeterol 1 puff 02/05/18 20:00 02/07/18 07:28 Advair Diskus 250/50 INH Not Given RQ12 SHREYAS Sucralfate 1 gm 02/05/18 22:00 02/07/18 07:22 Carafate Oral Susp PO 1 gm ACBHS SHREYAS Administration Vitamin A 1 ea 02/05/18 20:04 Vitamin A & D Oint Ud Foilpak EXT Q8 PRN Dry SKIN - Patient Studies Lab Studies: Microbiology Studies 02/05/18 18:51 Urine Culture - Final Urine,Ramos 50-100,000 CFU/ML. MULTIPLE SPECIES. SUGGEST REPEAT SPECIMEN. 02/05/18 17:30 Blood Culture - Preliminary Blood NO GROWTH AFTER 24 HOURS 02/05/18 18:00 Blood Culture - Preliminary Blood NO GROWTH AFTER 24 HOURS Lab Studies 02/07/18 02/07/18 02/07/18 Range/Units 05:00 04:43 04:43 WBC (4.8-10.8) K/uL RBC (3.80-5.20) Mil/uL Hgb (11.0-16.0) g/dL Hct (34.0-47.0) % MCV (81.0-99.0) fL MCH (27.0-31.0) pg MCHC (33.0-37.0) g/dL RDW (11.5-14.5) % Plt Count (130-400) K/uL MPV (7.2-11.7) fL Neut % (Auto) (50.0-75.0) % Lymph % (Auto) (20.0-40.0) % Harrison % (Auto) (0.0-10.0) % Eos % (Auto) (0.0-4.0) % Baso % (Auto) (0.0-2.0) % Neut # (Auto) (1.8-7.0) K/uL Lymph # (Auto) (1.0-4.3) K/uL Harrison # (Auto) (0.0-0.8) K/uL Eos # (Auto) (0.0-0.7) K/uL Baso # (Auto) (0.0-0.2) K/uL Neutrophils % (Manual) (50-75) % Band Neutrophils % (0-2) % Lymphocytes % (Manual) (20-40) % Monocytes % (Manual) (0-10) % Nucleated RBC % (0-0) % Platelet Estimate (NORMAL) Poikilocytosis (manual Anisocytosis (manual) Microcytosis (manual) Tarah Cells Acanthocytes (Spur) Schistocytes Puncture Site Rb pCO2 22 L (35-45) mm/Hg pO2 111 H (80-100) mm/Hg HCO3 19.8 L (21-28) mmol/L ABG pH 7.45 (7.35-7.45) ABG Total CO2 16.0 L (22-28) mmol/L ABG O2 Saturation 99.6 H (95-98) % ABG Base Excess -6.6 L (-2.0-3.0) mmol/L Jason Test Na ABG Potassium 3.0 L (3.6-5.2) mmol/L Glucose 137 H (65-105) mg/dl Lactate 3.3 H (0.7-2.1) mmol/L Liter Flow 2.0 Sodium 151.0 H 152 H (132-148) mmol/L Potassium 3.5 L (3.6-5.2) mmol/L Chloride 125.0 H 125 H (98-107) mmol/L Carbon Dioxide 17 L (22-30) mmol/L Anion Gap 13 (10-20) BUN 22 H (7-17) mg/dL Creatinine 0.6 L (0.7-1.2) mg/dL Est GFR ( Amer) > 60 Est GFR (Non-Af Amer) > 60 Random Glucose 135 H (65-105) mg/dL Lactic Acid 3.9 H (0.7-2.1) mmol/L Calcium 7.5 L (8.6-10.4) mg/dl Phosphorus 1.3 L (2.5-4.5) mg/dL Magnesium 1.4 L (1.6-2.3) mg/dL Total Bilirubin 0.2 (0.2-1.3) mg/dL AST 18 (14-36) U/L ALT 26 (9-52) U/L Alkaline Phosphatase 88 (38-126) U/L Total Protein 4.7 L (6.3-8.3) g/dL Albumin 2.3 L (3.5-5.0) g/dL Globulin 2.4 (2.2-3.9) gm/dL Albumin/Globulin Ratio 0.9 L (1.0-2.1) Arterial Blood Potassium 3.0 L (3.6-5.2) mmol/L 02/07/18 Range/Units 04:43 WBC 14.3 H (4.8-10.8) K/uL RBC 2.81 L (3.80-5.20) Mil/uL Hgb 8.4 L (11.0-16.0) g/dL Hct 26.4 L (34.0-47.0) % MCV 93.8 (81.0-99.0) fL MCH 30.0 (27.0-31.0) pg MCHC 32.0 L (33.0-37.0) g/dL RDW 20.6 H (11.5-14.5) % Plt Count 209 (130-400) K/uL MPV 9.1 (7.2-11.7) fL Neut % (Auto) 87.9 H (50.0-75.0) % Lymph % (Auto) 5.3 L (20.0-40.0) % Harrison % (Auto) 5.9 (0.0-10.0) % Eos % (Auto) 0.6 (0.0-4.0) % Baso % (Auto) 0.3 (0.0-2.0) % Neut # (Auto) 12.6 H (1.8-7.0) K/uL Lymph # (Auto) 0.8 L (1.0-4.3) K/uL Harrison # (Auto) 0.8 (0.0-0.8) K/uL Eos # (Auto) 0.1 (0.0-0.7) K/uL Baso # (Auto) 0.0 (0.0-0.2) K/uL Neutrophils % (Manual) 89 H (50-75) % Band Neutrophils % 1 (0-2) % Lymphocytes % (Manual) 6 L (20-40) % Monocytes % (Manual) 4 (0-10) % Nucleated RBC % 1 H (0-0) % Platelet Estimate Normal (NORMAL) Poikilocytosis (manual Slight Anisocytosis (manual) Slight Microcytosis (manual) Slight Offerman Cells Slight Acanthocytes (Spur) Slight Schistocytes Slight Puncture Site pCO2 (35-45) mm/Hg pO2 (80-100) mm/Hg HCO3 (21-28) mmol/L ABG pH (7.35-7.45) ABG Total CO2 (22-28) mmol/L ABG O2 Saturation (95-98) % ABG Base Excess (-2.0-3.0) mmol/L Jason Test ABG Potassium (3.6-5.2) mmol/L Glucose (65-105) mg/dl Lactate (0.7-2.1) mmol/L Liter Flow Sodium (132-148) mmol/L Potassium (3.6-5.2) mmol/L Chloride (98-107) mmol/L Carbon Dioxide (22-30) mmol/L Anion Gap (10-20) BUN (7-17) mg/dL Creatinine (0.7-1.2) mg/dL Est GFR ( Amer) Est GFR (Non-Af Amer) Random Glucose (65-105) mg/dL Lactic Acid (0.7-2.1) mmol/L Calcium (8.6-10.4) mg/dl Phosphorus (2.5-4.5) mg/dL Magnesium (1.6-2.3) mg/dL Total Bilirubin (0.2-1.3) mg/dL AST (14-36) U/L ALT (9-52) U/L Alkaline Phosphatase (38-126) U/L Total Protein (6.3-8.3) g/dL Albumin (3.5-5.0) g/dL Globulin (2.2-3.9) gm/dL Albumin/Globulin Ratio (1.0-2.1) Arterial Blood Potassium (3.6-5.2) mmol/L Laboratory Results - last 24 hr 02/07/18 02/07/18 02/07/18 04:43 04:43 04:43 WBC 14.3 H RBC 2.81 L Hgb 8.4 L Hct 26.4 L MCV 93.8 MCH 30.0 MCHC 32.0 L RDW 20.6 H Plt Count 209 MPV 9.1 Neut % (Auto) 87.9 H Lymph % (Auto) 5.3 L Harrison % (Auto) 5.9 Eos % (Auto) 0.6 Baso % (Auto) 0.3 Neut # (Auto) 12.6 H Lymph # (Auto) 0.8 L Harrison # (Auto) 0.8 Eos # (Auto) 0.1 Baso # (Auto) 0.0 Neutrophils % (Manual) 89 H Band Neutrophils % 1 Lymphocytes % (Manual) 6 L Monocytes % (Manual) 4 Nucleated RBC % 1 H Platelet Estimate Normal Poikilocytosis (manual Slight Anisocytosis (manual) Slight Microcytosis (manual) Slight Tarah Cells Slight Acanthocytes (Spur) Slight Schistocytes Slight Puncture Site pCO2 pO2 HCO3 ABG pH ABG Total CO2 ABG O2 Saturation ABG Base Excess Jason Test ABG Potassium Glucose Lactate Liter Flow Sodium 152 H Potassium 3.5 L Chloride 125 H Carbon Dioxide 17 L Anion Gap 13 BUN 22 H Creatinine 0.6 L Est GFR ( Amer) > 60 Est GFR (Non-Af Amer) > 60 Random Glucose 135 H Lactic Acid 3.9 H Calcium 7.5 L Phosphorus 1.3 L Magnesium 1.4 L Total Bilirubin 0.2 AST 18 ALT 26 Alkaline Phosphatase 88 Total Protein 4.7 L Albumin 2.3 L Globulin 2.4 Albumin/Globulin Ratio 0.9 L Arterial Blood Potassium 02/07/18 05:00 WBC RBC Hgb Hct MCV MCH MCHC RDW Plt Count MPV Neut % (Auto) Lymph % (Auto) Harrison % (Auto) Eos % (Auto) Baso % (Auto) Neut # (Auto) Lymph # (Auto) Harrison # (Auto) Eos # (Auto) Baso # (Auto) Neutrophils % (Manual) Band Neutrophils % Lymphocytes % (Manual) Monocytes % (Manual) Nucleated RBC % Platelet Estimate Poikilocytosis (manual Anisocytosis (manual) Microcytosis (manual) Offerman Cells Acanthocytes (Spur) Schistocytes Puncture Site Rb pCO2 22 L pO2 111 H HCO3 19.8 L ABG pH 7.45 ABG Total CO2 16.0 L ABG O2 Saturation 99.6 H ABG Base Excess -6.6 L Jason Test Na ABG Potassium 3.0 L Glucose 137 H Lactate 3.3 H Liter Flow 2.0 Sodium 151.0 H Potassium Chloride 125.0 H Carbon Dioxide Anion Gap BUN Creatinine Est GFR ( Amer) Est GFR (Non-Af Amer) Random Glucose Lactic Acid Calcium Phosphorus Magnesium Total Bilirubin AST ALT Alkaline Phosphatase Total Protein Albumin Globulin Albumin/Globulin Ratio Arterial Blood Potassium 3.0 L EKG/Cardiology Studies: Cardiology / EKG Studies 02/06/18 12:44 ELECTROCARDIOGRAM Stat Comment: Mode Of Transportation: BED Reason For Exam: R/O arrhythmia Review of Systems - Review of Systems All systems: reviewed and no additional remarkable complaints except (as per HPI ) Critical Care Progress Note - Extremities/Vascular Does the Patient have a Central Venous Catheter?: Yes Does the Patient need a Ramos Catheter?: Yes - Prophylaxis GI Prophylaxis GI: Not Indicated - Prophylaxis DVT Prophylaxis DVT: Lovenox - Nutrition Nutrition: Nutrition Category Date Time Status Heart Healthy Diet [DIET] Diets 02/06/18 Lunch Active Assessment/Plan - Assessment and Plan (Free Text) Assessment: Ths is an 82 year old AA female with PMHx of COPD, HTN, Heart failure, PVD, Afib , dementia, hypothyroidism, bedbound who was sent in from the [place] for o2 sat in the 90s with leukocytosis, hypernatremia and hypokalemia. Pt was noted to be hypotensive in the ED, and started on a pressor in the ED. Pt is being managed for urosepsis. Pt is DNR/DNI. Plan: Neuro: - Pt is AAOx3 - continue to monitor for mental status changes - continue lorazepam 0.5mg PO BID as per primary team Cardio: - Pt's SBP is in the 90s at baseline - pt was given NS 500 mL IVB, and Albumin 25 gm IV - pt is off of vasopressin gtt; BP is stable - continue home rosuvastatin, cardizem 30 mg PO q8 - troponin elevated, likely due to deman ischemia - maintain MAP>65 mmHg - Pt is DNR/DNI Pulm: - CXR (02/07) shows trace right pleural effusion. Otherwise unremarkable - continue home fluticasone/salmeterol, roflumilast - duonebs q6h - maintain spo2 between 88 and 92% - NC PRN GI: - hhd; tolerating well - continue home carafate - no indication for pud ppx at this time Renal: - BUN/Cr is wnl - hypernatremia (152) is slowly improving, continue d5 1/2 NS; likely due to dehydration - continue to replete electrolytes as needed ID: - urosepsis; remains afebrile; leukocytosis is downtrending - lactate remains elevated (3.9), Continue ceftriaxone - Urine culture shows multiple species; re-ordered urine culture and sensitivity - Blood culture x 2 prelim shows no growth after 24 hours, gram stain pending Heme: - Hgb is 8.4, likely dilutional due to hypernatremia treatment - t bili is normal - no intervention at this time Endo: - maintain euglycemia; glucose within normal limits - continue home levothyroxine 50 mcg IVP (pt is on levothyroxine 100 mg PO at home) PPX: Lovenox for vte ppx Dispo: Pt is medically safe and stable for transfer to med/surg floor Case was reviewed and discussed with attending physician, Dr. Greer <Silas Greer S - Last Filed: 02/07/18 18:12> CCU Subjective - Physician Review Critical Care Time Spent (in minutes): 30 CCU Objective - Vital Signs / Intake & Output Vital Signs (Last 4 hours): Vital Signs Temp Pulse Resp BP Pulse Ox 02/07/18 17:55 125 H 22 99/64 L 02/07/18 17:50 133 H 17 02/07/18 17:40 117 H 21 02/07/18 17:30 111 H 17 02/07/18 17:25 109 H 17 91/59 L 02/07/18 17:20 105 H 17 02/07/18 17:10 106 H 21 02/07/18 17:00 136 H 21 02/07/18 16:56 110 H 21 96/53 L 02/07/18 16:50 105 H 18 02/07/18 16:40 107 H 15 02/07/18 16:30 116 H 19 02/07/18 16:25 113 H 18 96/63 L 02/07/18 16:20 111 H 21 02/07/18 16:10 116 H 19 02/07/18 16:00 97.9 F 111 H 22 02/07/18 15:55 111 H 20 97/56 L 02/07/18 15:50 116 H 17 67 L 02/07/18 15:40 117 H 20 02/07/18 15:30 110 H 17 02/07/18 15:25 114 H 17 93/57 L 02/07/18 15:20 108 H 18 02/07/18 15:10 125 H 19 02/07/18 15:00 109 H 18 02/07/18 14:55 115 H 18 92/59 L 02/07/18 14:50 105 H 19 02/07/18 14:40 107 H 18 02/07/18 14:30 108 H 18 02/07/18 14:26 108 H 19 103/85 02/07/18 14:20 111 H 25 H Intake and Output (Last 8hrs): Intake & Output 02/07/18 02/07/18 02/07/18 06:59 14:59 22:59 Intake Total 919.2 853.2 300 Output Total 150 90 25 Balance 769.2 763.2 275 Weight 78 lb Intake: IV 40 Intake, IV Amount 819.2 713.2 300 Right Medial Port Femoral 19.2 13.2 Right Proximal Port 800 700 300 Femoral Oral 100 100 Output: Urine 150 90 25 Urethral (Ramos) 150 90 25 Other: # Bowel Movements 1 1 - Medications Active Medications: Active Medications Generic Name Dose Route Start Last Admin Trade Name Freq PRN Reason Stop Dose Admin Acetaminophen 650 mg 02/05/18 19:57 Tylenol 325mg Tab PO Q6 PRN Pain, moderate (4-7) Albuterol/Ipratropium 3 ml 02/05/18 20:00 02/07/18 07:27 Duoneb 3 Mg/0.5 Mg (3 Ml) Ud INH 3 ml RQ6 SHREYAS Administration Diltiazem HCl 30 mg 02/05/18 22:00 02/07/18 13:35 Cardizem PO Not Given Q8 SHREYAS Enoxaparin Sodium 30 mg 02/06/18 10:00 02/07/18 10:49 Lovenox SC 30 mg DAILY SHREYAS Administration Dextrose/Sodium Chloride 1,000 mls @ 100 mls/hr 02/05/18 20:00 02/07/18 02:42 Dextrose 5%/0.45% Ns 1000 Ml IV 100 mls/hr .Q10H SHREYAS Administration Ceftriaxone Sodium 2 gm/ 100 mls @ 100 mls/hr 02/06/18 09:00 02/07/18 09:27 Sodium Chloride IVPB 100 mls/hr Q24H SHREYAS Administration Protocol Vasopressin 40 units/ Sodium 40 mls @ 0.6 mls/hr 02/06/18 08:15 02/07/18 08: 55 Chloride IV 0.04 units/min .Q24H SHREYAS 2.4 mls/hr Protocol Administration 0.01 UNITS/MIN Sodium Chloride 500 mls @ 999 mls/hr 02/07/18 10:15 02/07/18 10:50 Sodium Chloride 0.9% IV 999 mls/hr .Q31M SHREYAS Administration Levothyroxine Sodium 50 mcg 02/06/18 08:15 02/06/18 10:08 Synthroid IVP Not Given DAILY [facility] Lorazepam 0.5 mg 02/06/18 10:00 02/07/18 17:52 Ativan PO Not Given BID [facility] Roflumilast 500 mcg 02/06/18 10:00 02/07/18 10:05 Daliresp PO Not Given DAILY [facility] Rosuvastatin Calcium 5 mg 02/05/18 22:00 02/06/18 21:57 Crestor PO 5 mg HS SHREYAS Administration Fluticasone/Salmeterol 1 puff 02/05/18 20:00 02/07/18 07:28 Advair Diskus 250/50 INH Not Given RQ12 [facility] Sucralfate 1 gm 02/05/18 22:00 02/07/18 07:22 Carafate Oral Susp PO 1 gm ACBHS SHREYAS Administration Vitamin A 1 ea 02/05/18 20:04 Vitamin A & D Oint Ud Foilpak EXT Q8 PRN Dry SKIN - Patient Studies Lab Studies: Microbiology Studies 02/06/18 14:05 MRSA Culture (Admit) - Final Nose MRSA DETECTED 02/05/18 18:51 Urine Culture - Final Urine,Ramos 50-100,000 CFU/ML. MULTIPLE SPECIES. SUGGEST REPEAT SPECIMEN. 02/05/18 17:30 Blood Culture - Preliminary Blood NO GROWTH AFTER 24 HOURS 02/05/18 18:00 Blood Culture - Preliminary Blood NO GROWTH AFTER 24 HOURS Lab Studies 02/07/18 02/07/18 02/07/18 Range/Units 05:00 04:43 04:43 WBC (4.8-10.8) K/uL RBC (3.80-5.20) Mil/uL Hgb (11.0-16.0) g/dL Hct (34.0-47.0) % MCV (81.0-99.0) fL MCH (27.0-31.0) pg MCHC (33.0-37.0) g/dL RDW (11.5-14.5) % Plt Count (130-400) K/uL MPV (7.2-11.7) fL Neut % (Auto) (50.0-75.0) % Lymph % (Auto) (20.0-40.0) % Harrison % (Auto) (0.0-10.0) % Eos % (Auto) (0.0-4.0) % Baso % (Auto) (0.0-2.0) % Neut # (Auto) (1.8-7.0) K/uL Lymph # (Auto) (1.0-4.3) K/uL Harrison # (Auto) (0.0-0.8) K/uL Eos # (Auto) (0.0-0.7) K/uL Baso # (Auto) (0.0-0.2) K/uL Neutrophils % (Manual) (50-75) % Band Neutrophils % (0-2) % Lymphocytes % (Manual) (20-40) % Monocytes % (Manual) (0-10) % Nucleated RBC % (0-0) % Platelet Estimate (NORMAL) Poikilocytosis (manual Anisocytosis (manual) Microcytosis (manual) Tarah Cells Acanthocytes (Spur) Schistocytes Puncture Site Rb pCO2 22 L (35-45) mm/Hg pO2 111 H (80-100) mm/Hg HCO3 19.8 L (21-28) mmol/L ABG pH 7.45 (7.35-7.45) ABG Total CO2 16.0 L (22-28) mmol/L ABG O2 Saturation 99.6 H (95-98) % ABG Base Excess -6.6 L (-2.0-3.0) mmol/L Jason Test Na ABG Potassium 3.0 L (3.6-5.2) mmol/L Glucose 137 H (65-105) mg/dl Lactate 3.3 H (0.7-2.1) mmol/L Liter Flow 2.0 Sodium 151.0 H 152 H (132-148) mmol/L Potassium 3.5 L (3.6-5.2) mmol/L Chloride 125.0 H 125 H (98-107) mmol/L Carbon Dioxide 17 L (22-30) mmol/L Anion Gap 13 (10-20) BUN 22 H (7-17) mg/dL Creatinine 0.6 L (0.7-1.2) mg/dL Est GFR ( Amer) > 60 Est GFR (Non-Af Amer) > 60 Random Glucose 135 H (65-105) mg/dL Lactic Acid 3.9 H (0.7-2.1) mmol/L Calcium 7.5 L (8.6-10.4) mg/dl Phosphorus 1.3 L (2.5-4.5) mg/dL Magnesium 1.4 L (1.6-2.3) mg/dL Total Bilirubin 0.2 (0.2-1.3) mg/dL AST 18 (14-36) U/L ALT 26 (9-52) U/L Alkaline Phosphatase 88 (38-126) U/L Total Protein 4.7 L (6.3-8.3) g/dL Albumin 2.3 L (3.5-5.0) g/dL Globulin 2.4 (2.2-3.9) gm/dL Albumin/Globulin Ratio 0.9 L (1.0-2.1) Arterial Blood Potassium 3.0 L (3.6-5.2) mmol/L 02/07/18 Range/Units 04:43 WBC 14.3 H (4.8-10.8) K/uL RBC 2.81 L (3.80-5.20) Mil/uL Hgb 8.4 L (11.0-16.0) g/dL Hct 26.4 L (34.0-47.0) % MCV 93.8 (81.0-99.0) fL MCH 30.0 (27.0-31.0) pg MCHC 32.0 L (33.0-37.0) g/dL RDW 20.6 H (11.5-14.5) % Plt Count 209 (130-400) K/uL MPV 9.1 (7.2-11.7) fL Neut % (Auto) 87.9 H (50.0-75.0) % Lymph % (Auto) 5.3 L (20.0-40.0) % Harrison % (Auto) 5.9 (0.0-10.0) % Eos % (Auto) 0.6 (0.0-4.0) % Baso % (Auto) 0.3 (0.0-2.0) % Neut # (Auto) 12.6 H (1.8-7.0) K/uL Lymph # (Auto) 0.8 L (1.0-4.3) K/uL Harrison # (Auto) 0.8 (0.0-0.8) K/uL Eos # (Auto) 0.1 (0.0-0.7) K/uL Baso # (Auto) 0.0 (0.0-0.2) K/uL Neutrophils % (Manual) 89 H (50-75) % Band Neutrophils % 1 (0-2) % Lymphocytes % (Manual) 6 L (20-40) % Monocytes % (Manual) 4 (0-10) % Nucleated RBC % 1 H (0-0) % Platelet Estimate Normal (NORMAL) Poikilocytosis (manual Slight Anisocytosis (manual) Slight Microcytosis (manual) Slight Offerman Cells Slight Acanthocytes (Spur) Slight Schistocytes Slight Puncture Site pCO2 (35-45) mm/Hg pO2 (80-100) mm/Hg HCO3 (21-28) mmol/L ABG pH (7.35-7.45) ABG Total CO2 (22-28) mmol/L ABG O2 Saturation (95-98) % ABG Base Excess (-2.0-3.0) mmol/L Jason Test ABG Potassium (3.6-5.2) mmol/L Glucose (65-105) mg/dl Lactate (0.7-2.1) mmol/L Liter Flow Sodium (132-148) mmol/L Potassium (3.6-5.2) mmol/L Chloride (98-107) mmol/L Carbon Dioxide (22-30) mmol/L Anion Gap (10-20) BUN (7-17) mg/dL Creatinine (0.7-1.2) mg/dL Est GFR ( Amer) Est GFR (Non-Af Amer) Random Glucose (65-105) mg/dL Lactic Acid (0.7-2.1) mmol/L Calcium (8.6-10.4) mg/dl Phosphorus (2.5-4.5) mg/dL Magnesium (1.6-2.3) mg/dL Total Bilirubin (0.2-1.3) mg/dL AST (14-36) U/L ALT (9-52) U/L Alkaline Phosphatase (38-126) U/L Total Protein (6.3-8.3) g/dL Albumin (3.5-5.0) g/dL Globulin (2.2-3.9) gm/dL Albumin/Globulin Ratio (1.0-2.1) Arterial Blood Potassium (3.6-5.2) mmol/L Laboratory Results - last 24 hr 02/07/18 02/07/18 02/07/18 04:43 04:43 04:43 WBC 14.3 H RBC 2.81 L Hgb 8.4 L Hct 26.4 L MCV 93.8 MCH 30.0 MCHC 32.0 L RDW 20.6 H Plt Count 209 MPV 9.1 Neut % (Auto) 87.9 H Lymph % (Auto) 5.3 L Harrison % (Auto) 5.9 Eos % (Auto) 0.6 Baso % (Auto) 0.3 Neut # (Auto) 12.6 H Lymph # (Auto) 0.8 L Harrison # (Auto) 0.8 Eos # (Auto) 0.1 Baso # (Auto) 0.0 Neutrophils % (Manual) 89 H Band Neutrophils % 1 Lymphocytes % (Manual) 6 L Monocytes % (Manual) 4 Nucleated RBC % 1 H Platelet Estimate Normal Poikilocytosis (manual Slight Anisocytosis (manual) Slight Microcytosis (manual) Slight Tarah Cells Slight Acanthocytes (Spur) Slight Schistocytes Slight Puncture Site pCO2 pO2 HCO3 ABG pH ABG Total CO2 ABG O2 Saturation ABG Base Excess Jason Test ABG Potassium Glucose Lactate Liter Flow Sodium 152 H Potassium 3.5 L Chloride 125 H Carbon Dioxide 17 L Anion Gap 13 BUN 22 H Creatinine 0.6 L Est GFR ( Amer) > 60 Est GFR (Non-Af Amer) > 60 Random Glucose 135 H Lactic Acid 3.9 H Calcium 7.5 L Phosphorus 1.3 L Magnesium 1.4 L Total Bilirubin 0.2 AST 18 ALT 26 Alkaline Phosphatase 88 Total Protein 4.7 L Albumin 2.3 L Globulin 2.4 Albumin/Globulin Ratio 0.9 L Arterial Blood Potassium 02/07/18 05:00 WBC RBC Hgb Hct MCV MCH MCHC RDW Plt Count MPV Neut % (Auto) Lymph % (Auto) Harrison % (Auto) Eos % (Auto) Baso % (Auto) Neut # (Auto) Lymph # (Auto) Harrison # (Auto) Eos # (Auto) Baso # (Auto) Neutrophils % (Manual) Band Neutrophils % Lymphocytes % (Manual) Monocytes % (Manual) Nucleated RBC % Platelet Estimate Poikilocytosis (manual Anisocytosis (manual) Microcytosis (manual) Tarah Cells Acanthocytes (Spur) Schistocytes Puncture Site Rb pCO2 22 L pO2 111 H HCO3 19.8 L ABG pH 7.45 ABG Total CO2 16.0 L ABG O2 Saturation 99.6 H ABG Base Excess -6.6 L Jason Test Na ABG Potassium 3.0 L Glucose 137 H Lactate 3.3 H Liter Flow 2.0 Sodium 151.0 H Potassium Chloride 125.0 H Carbon Dioxide Anion Gap BUN Creatinine Est GFR ( Amer) Est GFR (Non-Af Amer) Random Glucose Lactic Acid Calcium Phosphorus Magnesium Total Bilirubin AST ALT Alkaline Phosphatase Total Protein Albumin Globulin Albumin/Globulin Ratio Arterial Blood Potassium 3.0 L Critical Care Progress Note - Nutrition Nutrition: Nutrition Category Date Time Status Heart Healthy Diet [DIET] Diets 02/06/18 Lunch Active Attending/Attestation - Attestation I have personally seen and examined this patient.: Yes I have fully participated in the care of the patient.: Yes I have reviewed all pertinent clinical information: Yes Notes (Text): 02/07/18 18:11 patient seen and examined Patient is off pressors IV albumin Transfer to floor Continue antibiotics
--- NOTE | 2018-02-07 12:33 | RAD ---
Date of service: 02/07/2018 HISTORY: f.u COMPARISON: 02/06/2018 FINDINGS: LUNGS: No active pulmonary disease. PLEURA: Trace right pleural effusion. No left pleural effusion. No pneumothorax. CARDIOVASCULAR: Normal. OSSEOUS STRUCTURES: No significant abnormalities. VISUALIZED UPPER ABDOMEN: Normal. OTHER FINDINGS: None. IMPRESSION: Trace right pleural effusion. Otherwise unremarkable.
[2018-02-07] MEDS: Albumin Human 25% (12.5 gm/50 ml) IV SCH ×3 (12:38→12:52)
--- NOTE | 2018-02-07 17:48 | PN ---
Copied To: Tru Vinson MD Attending MD: Tru Vinson MD DATE: 02/07/2018 SUBJECTIVE: The patient does not appear to be in any respiratory distress. She is transferred by . She is still on low dose of Vasopressin, monitor multifocal atrial tachycardia. PHYSICAL EXAMINATION: VITAL SIGNS: Blood pressure 117/65, heart rate 121, temperature 98.1. HEENT: Pale conjunctivae. CHEST: Decreased bilateral rhonchi. HEART: S1 and S2 regular. ABDOMEN: Soft. EXTREMITIES: The patient has significant muscle wasting as well as trace leg edema. LABORATORY DATA: SMA-7: Sodium of 152, potassium of 3.5, chloride 125, CO2 of 17, glucose 135, BUN of 22, creatinine of 0.5. Today's hemoglobin and hematocrit 8.4 and 26.4, white count of 14.3, platelet count of 209,000. Today's chest x-ray report, trace right pleural effusion, otherwise unremarkable. Blood culture, no growth after 24 hours. ASSESSMENT: 1. Multifocal atrial tachycardia. 2. Rule out urosepsis. 3. Borderline troponin elevation. 4. Dehydration. 5. , improved hypokalemia, and prerenal azotemia. 6. Profound hypothyroidism. RECOMMENDATIONS: Continue current albumin infusion 12.5 g intravenously hourly. Continue Carafate 1 g p.o. twice a day, Crestor 5 mg once a day, Rocephin 2 g intravenously daily, Lovenox 30 mg subcutaneous once a day, Synthroid at 50 mcg intravenously daily. The plan is to discontinue Vasopressin within few hours. The patient is not a suitable candidate for any invasive cardiac workup and conservative medical approach and justified. Tru Vinson MD
[2018-02-07] MEDS ORDERED: Dextrose 50% SYRINGE Inj (50 ml) IV STA ×2 (21:17→23:37)
--- NOTE | 2018-02-07 23:15 | CP.PCM.PN ---
Objective - Vital Signs/Intake and Output Vital Signs (last 24 hours): Temp Pulse Resp BP Pulse Ox 97.9 F 125 H 22 99/64 L 67 L 02/07/18 16:00 02/07/18 17:55 02/07/18 17:55 02/07/18 17:55 02/07/18 15:50 Intake and Output: 02/07/18 02/08/18 18:59 06:59 Intake Total 1253.2 Output Total 130 Balance 1123.2 - Medications Medications: Current Medications Acetaminophen (Tylenol 325mg Tab) 650 mg PO Q6 PRN PRN Reason: Pain, moderate (4-7) Albuterol/Ipratropium (Duoneb 3 Mg/0.5 Mg (3 Ml) Ud) 3 ml INH RQ6 [facility] Last Admin: 02/07/18 20:34 Dose: Not Given Diltiazem HCl (Cardizem) 30 mg PO Q8 [facility] Last Admin: 02/07/18 22:45 Dose: Not Given Enoxaparin Sodium (Lovenox) 30 mg SC DAILY [facility] Last Admin: 02/07/18 10:49 Dose: 30 mg Ceftriaxone Sodium 2 gm/ (Sodium Chloride) 100 mls @ 100 mls/hr IVPB Q24H [facility] PRN Reason: Protocol Last Admin: 02/07/18 09:27 Dose: 100 mls/hr Vasopressin 40 units/ Sodium (Chloride) 40 mls @ 0.6 mls/hr IV .Q24H [facility]; 0.01 UNITS/MIN PRN Reason: Protocol Last Admin: 02/07/18 08:55 Dose: 0.04 units/min, 2.4 mls/hr Sodium Chloride (Sodium Chloride 0.9%) 500 mls @ 999 mls/hr IV .Q31M [facility] Last Admin: 02/07/18 10:50 Dose: 999 mls/hr Dextrose (Dextrose 10% In Water) 1,000 mls @ 70 mls/hr IV .[id number] [facility] Last Admin: 02/07/18 21:25 Dose: 70 mls/hr Levothyroxine Sodium (Synthroid) 50 mcg IVP DAILY [facility] Last Admin: 02/06/18 10:08 Dose: Not Given Lorazepam (Ativan) 0.5 mg PO BID [facility] Last Admin: 02/07/18 17:52 Dose: Not Given Roflumilast (Daliresp) 500 mcg PO DAILY [facility] Last Admin: 02/07/18 10:05 Dose: Not Given Rosuvastatin Calcium (Crestor) 5 mg PO HS [facility] Last Admin: 02/07/18 22:46 Dose: 5 mg Fluticasone/Salmeterol (Advair Diskus 250/50) 1 puff INH RQ12 [facility] Last Admin: 02/07/18 20:34 Dose: Not Given Sucralfate (Carafate Oral Susp) 1 gm PO ACBHS [facility] Last Admin: 02/07/18 22:46 Dose: 1 gm Vitamin A (Vitamin A & D Oint Ud Foilpak) 1 ea EXT Q8 PRN PRN Reason: Dry SKIN - Labs Labs: 02/07/18 04:43 02/07/18 04:43 PT 18.1 SECONDS (9.7-12.2) H 02/05/18 18:00 INR 1.7 02/05/18 18:00 APTT 34 SECONDS (21-34) 02/05/18 18:00
[2018-02-08] MEDS: Albuterol-Ipratrop 3 mg / 0.5 (3 ml) UD INH SCH ×4 (02:50→20:01)
[2018-02-08] MEDS: Fluticasone-Salmeterol 250-50mcg Diskus INH SCH ×2 (07:20→20:01)
[2018-02-08] MEDS: Sucralfate 1 gm/10 ml Oral Susp UD PO SCH ×2 (08:18→21:44)
--- NOTE | 2018-02-08 08:18 | PN ---
Copied To: eLx Patel MD Attending MD: Lex Patel MD DATE: 02/07/2018 SUBJECTIVE: The patient is anxious. She is hypotensive. The patient is weak. She is tachycardiac. The patient is not able to explain her symptoms, but she seems not to be in any distress. PHYSICAL EXAMINATION: VITAL SIGNS: Blood pressure 99/64, pulse 125, respiratory rate 22, temperature 99. LUNGS: Decreased air entry. CVS: S1 and S2 irregular. Tachycardiac. ABDOMEN: Soft. ASSESSMENT: 1. Urinary tract infection, rule out septicemia. 2. Dehydration. Low blood sugar, to D10. 3. Peripheral vascular disease. 4. Chronic obstructive pulmonary disease. PLAN: Continue antibiotics. WBC is trending down. Cultures are negative. Monitor the patient. Lex Patel MD
[2018-02-08] MEDS: Dextrose 50% SYRINGE Inj (50 ml) IV PRN (08:22)
[2018-02-08] MEDS: cefTRIAXone 2 GM in Sodium Chloride 0.9% 100 ML IVPB SCH (10:22)
[2018-02-08] MEDS: Enoxaparin 30 mg Syringe SC SCH (10:22)
[2018-02-08] MEDS: Levothyroxine 100 mcg (0.1 mg) Inj IVP SCH (10:23)
--- NOTE | 2018-02-08 21:26 | PN ---
Copied To: Tru Vinson MD Attending MD: Tru Vinson MD DATE: 02/08/2018 FOLLOWUP SUBJECTIVE: The patient denies chest pain or abnormal pain. She is confused to place. PHYSICAL EXAMINATION: VITAL SIGNS: Blood pressure 99/64, heart rate 125, temperature 97.4. HEENT: Pale conjunctivae. CHEST: Bilateral rhonchi. HEART: S1, S2 are irregular. ABDOMEN: Soft. EXTREMITIES: Trace leg pedal edema with significant muscle wasting. LABORATORY DATA: Today's blood sugars are 181, 22, less than 20, 116, 61, and finally 70. Blood culture is negative after 48 hours. ASSESSMENT: 1. Multifocal atrial tachycardia. 2. Status post hypotension. 3. Chronic obstructive lung disease. 4. Borderline troponin elevation. 5. Anemia. 6. Dehydration with hypernatremia and hypokalemia as well as prerenal azotemia. RECOMMENDATIONS: Continue Cardizem 30 mg every 8 hours, IV Rocephin 2 g daily, Crestor 5 mg once a day, Lovenox 30 mg subcutaneous once a day, Synthroid at 50 mcg intravenously daily. Vasopressin was discontinued today. Tru Vinson MD
--- NOTE | 2018-02-08 21:41 | PQF ---
PROVIDER RESPONSE TEXT: Sepsis with Severe Sepsis and Septic Shock secondary to UTI REVIEWER QUERY TEXT: Clarification of Clinical Diagnostic Findings Please clarify documentation or clinical relevance for the clinical / diagnostic findings or whether those are insignificant or unable to be further specified. Sepsis with Severe Sepsis and Septic Shock secondary to UTI in the setting of Positive U/A with Fever , Tachycardia , Hypotension, Leukocytosis ,and O2 Sat in the 80's requiring ICU Admission, BIPAP, Vas opressin drip and Rocephin IV .. -Other Explanation. - Unable to Determine. The patient's Clinical Indicators include: Sepsis with Severe Sepsis and Septic Shock secondary to UTI in the setting of Positive U/A with Fever , Tachycardia , Hypotension, Leukocytosis ,and O2 Sat in the 80's requiring ICU Admission, Vasopressi n drip and Rocephin IV . Treatment: Rocephin IV, IVF w/ 1/2 NS 100ml/hr .,Vasopressin drip 0.6 ml/hr. ICU Admission Risk factors: Infection, UTI Query created by: Lizeth Lowe on 02/06/2018 3:49 PM Electronically signed by: Lex Patel MD 02/08/2018 9:38 PM
--- NOTE | 2018-02-08 22:48 | CP.PCM.PN ---
Objective - Vital Signs/Intake and Output Vital Signs (last 24 hours): Temp Pulse Resp BP Pulse Ox 98.2 F 116 H 18 101/58 L 95 02/08/18 20:00 02/08/18 21:22 02/08/18 21:22 02/08/18 21:22 02/08/18 20:00 Intake and Output: 02/08/18 02/09/18 18:59 06:59 Intake Total 1100 330 Balance 1100 330 - Medications Medications: Current Medications Acetaminophen (Tylenol 325mg Tab) 650 mg PO Q6 PRN PRN Reason: Pain, moderate (4-7) Albuterol/Ipratropium (Duoneb 3 Mg/0.5 Mg (3 Ml) Ud) 3 ml INH RQ6 [facility] Last Admin: 02/08/18 20:01 Dose: Not Given Dextrose (Dextrose 50% Inj) 0 ml IV PRN PRN; Protocol PRN Reason: Hypoglycemia Protocol Last Admin: 02/08/18 08:22 Dose: 50 ml Diltiazem HCl (Cardizem) 30 mg PO Q8 [facility] Last Admin: 02/08/18 21:44 Dose: 30 mg Enoxaparin Sodium (Lovenox) 30 mg SC DAILY [facility] Last Admin: 02/08/18 10:22 Dose: 30 mg Ceftriaxone Sodium 2 gm/ (Sodium Chloride) 100 mls @ 100 mls/hr IVPB Q24H [facility] PRN Reason: Protocol Last Admin: 02/08/18 10:22 Dose: 100 mls/hr Vasopressin 40 units/ Sodium (Chloride) 40 mls @ 0.6 mls/hr IV .Q24H [facility]; 0.01 UNITS/MIN PRN Reason: Protocol Last Admin: 02/08/18 11:45 Dose: Not Given Dextrose (Dextrose 10% In Water) 1,000 mls @ 70 mls/hr IV .[id number] [facility] Last Admin: 02/08/18 13:16 Dose: 70 mls/hr Levothyroxine Sodium (Synthroid) 50 mcg IVP DAILY [facility] Last Admin: 02/08/18 10:23 Dose: 50 mcg Lorazepam (Ativan) 0.5 mg PO BID [facility] Last Admin: 02/08/18 17:24 Dose: Not Given Roflumilast (Daliresp) 500 mcg PO DAILY [facility] Last Admin: 02/08/18 10:16 Dose: Not Given Rosuvastatin Calcium (Crestor) 5 mg PO HS [facility] Last Admin: 02/08/18 21:45 Dose: 5 mg Fluticasone/Salmeterol (Advair Diskus 250/50) 1 puff INH RQ12 [facility] Last Admin: 02/08/18 20:01 Dose: Not Given Sucralfate (Carafate Oral Susp) 1 gm PO ACBHS [facility] Last Admin: 02/08/18 21:44 Dose: 1 gm Vitamin A (Vitamin A & D Oint Ud Foilpak) 1 ea EXT Q8 PRN PRN Reason: Dry SKIN - Labs Labs: 02/07/18 04:43 02/07/18 04:43 PT 18.1 SECONDS (9.7-12.2) H 02/05/18 18:00 INR 1.7 02/05/18 18:00 APTT 34 SECONDS (21-34) 02/05/18 18:00
[2018-02-09] MEDS: Albuterol-Ipratrop 3 mg / 0.5 (3 ml) UD INH SCH ×4 (01:19→20:01)
--- NOTE | 2018-02-09 02:37 | CARD ---
APPROVED REPORT Date of service: 02/06/2018 EKG Measurement Heart [id number] <Conclusion> Sinus tachycardia with premature atrial complexes Left axis deviation Low voltage QRS Inferior-posterior infarct, age undetermined T wave abnormality, consider lateral ischemia Abnormal ECG
[2018-02-09] MEDS: Dextrose 50% SYRINGE Inj (50 ml) IV PRN (06:04)
[2018-02-09] MEDS: Sucralfate 1 gm/10 ml Oral Susp UD PO SCH ×3 (08:00→23:12)
[2018-02-09] MEDS: cefTRIAXone 2 GM in Sodium Chloride 0.9% 100 ML IVPB SCH (08:36)
[2018-02-09] MEDS: Fluticasone-Salmeterol 250-50mcg Diskus INH SCH (09:18)
--- NOTE | 2018-02-09 09:41 | PN ---
Copied To: Lex Patel MD Attending MD: Lex Patel MD DATE: 02/08/2018 SUBJECTIVE: The patient is afebrile. She remains tachycardic, tachypneic. She is on antibiotics. No distress. WBC is 14.3. Positive cough. No nausea, vomiting. Blood sugars have been down. PHYSICAL EXAMINATION: VITAL SIGNS: BP 101/58, pulse 116, respiratory rate 20, temperature 99. SKIN: ____ turgor. LUNGS: Bilaterally decreased air entry. CVS: S1, S2. Regular. Tachycardic. ABDOMEN: Soft. Nontender. Bowel sounds are positive. ASSESSMENT: 1. Urinary tract infection with septicemia with dehydration. 2. Chronic obstructive pulmonary disease. 3. Hypoglycemia. 4. Anemia. PLAN: Antibiotics. Follow up cultures. D50 p.r.n., D10. Lex Patel MD
[2018-02-09] MEDS: Levothyroxine 100 mcg (0.1 mg) Inj IVP SCH (10:11)
[2018-02-09] MEDS: Enoxaparin 30 mg Syringe SC SCH (10:25)
[2018-02-09 12:19] LABS: BLOOD UREA NITROGEN 8 mg/dL (7-17); CALCIUM 7.8 mg/dl (8.6-10.4); GFR NON-AFRICAN AMERICAN > 60
[2018-02-09] MEDS ORDERED: Potassium Chloride 20 mEq/15 ml LIQ UD PO STA (12:30)
--- NOTE | 2018-02-09 14:07 | CP.PCM.CON ---
History of Present Illness - History of Present Illness History of Present Illness: reason for consultation: COPD 82 year old female from [place] with history of COPD, HTN, heart failure, PVD, atrial fibrillation,dementia,hypothyroidism,bedbound sent in from the halfway for O2 sat in 80s, elevated white count at 21.6, elevated sodium at 163, low potassium at 3.2. Patient is Confused and unable to provide history. History obtained from halfway records ,Er notes,sand prior notes. In ER patient received IV fluids, became short of breath,hypotensive,placed on BIPAP and admitted to intensive care unit. Later patient transfer to floor Review of Systems - Review of Systems Systems not reviewed;Unavailable: Other (confused) Past Patient History - Infectious Disease Hx of Infectious Diseases: None - Past Medical History & Family History Past Medical History?: Yes - Past Social History Smoking Status: Unknown If Ever Smoked - CARDIAC Hx Cardiac Disorders: Yes (CORONARY STENT; AFIB) Hx Congestive Heart Failure: Yes Hx Hypertension: Yes - PULMONARY Hx Chronic Obstructive Pulmonary Disease (COPD): Yes - NEUROLOGICAL Hx Dementia: Yes - HEENT Hx HEENT Problems: No - RENAL Hx Chronic Kidney Disease: No - ENDOCRINE/METABOLIC Hx Hypothyroidism: Yes - HEMATOLOGICAL/ONCOLOGICAL Hx Blood Disorders: No Hx Blood Transfusions: No Hx Cancer: Yes ("STOMACH") - INTEGUMENTARY Hx Dermatological Problems: No - MUSCULOSKELETAL/RHEUMATOLOGICAL Hx Arthritis: Yes - GASTROINTESTINAL Hx Gastritis: Yes - GENITOURINARY/GYNECOLOGICAL Hx Genitourinary Disorders: No - PSYCHIATRIC Hx Anxiety: Yes Hx Substance Use: No - SURGICAL HISTORY Hx Coronary Stent: Yes - ANESTHESIA Hx Anesthesia: Yes Hx Anesthesia Reactions: No Hx Malignant Hyperthermia: No Meds Allergies/Adverse Reactions: Allergies Allergy/AdvReac Type Severity Reaction Status Date / Time No Known Allergies Allergy Verified 01/10/18 01:16 - Medications Medications: Current Medications Acetaminophen (Tylenol 325mg Tab) 650 mg PO Q6 PRN PRN Reason: Pain, moderate (4-7) Albuterol/Ipratropium (Duoneb 3 Mg/0.5 Mg (3 Ml) Ud) 3 ml INH RQ6 [facility] Last Admin: 02/09/18 13:41 Dose: 3 ml Dextrose (Dextrose 50% Inj) 0 ml IV PRN PRN; Protocol PRN Reason: Hypoglycemia Protocol Last Admin: 02/09/18 06:04 Dose: 50 ml Diltiazem HCl (Cardizem) 30 mg PO Q8 [facility] Last Admin: 02/09/18 13:16 Dose: 30 mg Enoxaparin Sodium (Lovenox) 30 mg SC DAILY [facility] Last Admin: 02/09/18 10:25 Dose: 30 mg Ceftriaxone Sodium 2 gm/ (Sodium Chloride) 100 mls @ 100 mls/hr IVPB Q24H [facility] PRN Reason: Protocol Last Admin: 02/09/18 08:36 Dose: 100 mls/hr Dextrose (Dextrose 10% In Water) 1,000 mls @ 70 mls/hr IV .[id number] [facility] Last Admin: 02/09/18 02:53 Dose: 70 mls/hr Potassium Chloride (Potassium Chloride 20 Meq/100 Ml) 20 meq in 100 mls @ 50 mls/hr IVPB Q2 [facility] Stop: 02/09/18 21:59 Last Admin: 02/09/18 13:12 Dose: 50 mls/hr Levothyroxine Sodium (Synthroid) 50 mcg IVP DAILY [facility] Last Admin: 02/09/18 10:11 Dose: 50 mcg Lorazepam (Ativan) 0.5 mg PO BID [facility] Last Admin: 02/09/18 10:25 Dose: 0.5 mg Roflumilast (Daliresp) 500 mcg PO DAILY [facility] Last Admin: 02/09/18 10:11 Dose: 500 mcg Rosuvastatin Calcium (Crestor) 5 mg PO HS [facility] Last Admin: 02/08/18 21:45 Dose: 5 mg Fluticasone/Salmeterol (Advair Diskus 250/50) 1 puff INH RQ12 [facility] Last Admin: 02/09/18 09:18 Dose: Not Given Sucralfate (Carafate Oral Susp) 1 gm PO ACBHS [facility] Last Admin: 02/09/18 08:00 Dose: 1 gm Vitamin A (Vitamin A & D Oint Ud Foilpak) 1 ea EXT Q8 PRN PRN Reason: Dry SKIN Physical Exam - Head Exam Head Exam: ATRAUMATIC, NORMOCEPHALIC - ENT Exam ENT Exam: Mucous Membranes Moist - Neck Exam Neck exam: Positive for: Normal Inspection - Respiratory Exam Respiratory Exam: Decreased Breath Sounds - Cardiovascular Exam Cardiovascular Exam: REGULAR RHYTHM - GI/Abdominal Exam GI & Abdominal Exam: Normal Bowel Sounds Results - Vital Signs Recent Vital Signs: Last Vital Signs Temp 98.7 F 02/09/18 08:00 Pulse 59 L 02/09/18 08:00 Resp 20 02/09/18 08:00 BP 101/66 02/09/18 08:00 Pulse Ox 95 02/09/18 08:00 - Labs Result Diagrams: 02/07/18 04:43 02/09/18 11:27 Labs: Laboratory Results - last 24 hr 02/08/18 02/08/18 02/08/18 16:04 19:49 23:37 Sodium Potassium Chloride Carbon Dioxide Anion Gap BUN Creatinine Est GFR ( Amer) Est GFR (Non-Af Amer) POC Glucose (mg/dL) 104 75 64 L Random Glucose Calcium Magnesium 02/08/18 02/09/18 02/09/18 23:40 05:39 05:43 Sodium Potassium Chloride Carbon Dioxide Anion Gap BUN Creatinine Est GFR ( Amer) Est GFR (Non-Af Amer) POC Glucose (mg/dL) 97 43 L 59 L Random Glucose Calcium Magnesium 02/09/18 02/09/18 02/09/18 06:33 07:26 07:27 Sodium Potassium Chloride Carbon Dioxide Anion Gap BUN Creatinine Est GFR ( Amer) Est GFR (Non-Af Amer) POC Glucose (mg/dL) 98 56 L 85 Random Glucose Calcium Magnesium 02/09/18 02/09/18 11:24 11:27 Sodium 140 Potassium 2.2 L* D Chloride 114 H Carbon Dioxide 18 L Anion Gap 10 BUN 8 Creatinine 0.4 L Est GFR ( Amer) > 60 Est GFR (Non-Af Amer) > 60 POC Glucose (mg/dL) 146 H Random Glucose 104 Calcium 7.8 L Magnesium 1.7 Assessment & Plan (1) COPD (chronic obstructive pulmonary disease) Status: Acute Comment: continue nebulizer treatment. Severe hypokalemia noted, potassium supplement. BiPAP as needed
[2018-02-09 14:29] LABS: BASO % 0.2 % (0.0-2.0); EOS # 0.1 K/uL (0.0-0.7); EOS % 0.8 % (0.0-4.0); LYMPH % 6.2 % (20.0-40.0); MEAN CELL VOLUME 91.9 fL (81.0-99.0); MEAN CORPUSCULAR HEMOGLOBIN 30.7 pg (27.0-31.0); MEAN CORPUSCULAR HGB CONC 33.4 g/dL (33.0-37.0); MEAN PLATELET VOLUME 9.8 fL (7.2-11.7); MONO # 0.9 K/uL (0.0-0.8); MONO % 5.3 % (0.0-10.0); NEUT # 14.8 K/uL (1.8-7.0); NEUT % 87.5 % (50.0-75.0); NRBC % 0.5 % (0.0-2.0); PLATELET COUNT 214 K/uL (130-400); RBC 3.43 Mil/uL (3.80-5.20); RED CELL DISTRIBUTION WIDTH 20.2 % (11.5-14.5); WHITE BLOOD COUNT 16.9 K/uL (4.8-10.8)
[2018-02-09 14:39] LABS: HEMOGLOBIN 10.5 g/dL (11.0-16.0)
[2018-02-09 15:35] LABS: ANISOCYTOSIS SLIGHT; BANDS 2 % (0-2); LYMPHOCYTE 9 % (20-40); MONOCYTE 3 % (0-10); NEUTROPHIL 86 % (50-75); NUCLEATED RED BLOOD CELL 1 % (0-0); PLATELET ESTIMATE NORMAL (NORMAL); TOTAL CELLS COUNTED 100
[2018-02-09 15:36] LABS: BURR CELLS MODERATE; HYPOCHROMIC SLIGHT; POLYCHROMIC SLIGHT
[2018-02-09 15:38] LABS: SCHISTOCYTES SLIGHT
--- NOTE | 2018-02-09 20:37 | PN ---
Copied To: Tru Vinson MD Attending MD: Tru Vinson MD DATE: 02/09/2018 SUBJECTIVE: The patient is currently in MAT. EKG revealed MAT at the rate of 133. She is lethargic and refuses to eat. Family refused idea of gastrostomy feeding tube. No reported diarrhea. The patient is borderline hypotensive and oral Cardizem has been withheld. PHYSICAL EXAMINATION: VITAL SIGNS: Blood pressure 98/59, heart rate 133, temperature 98, and respirations 20. HEENT: Normocephalic. CHEST: Bilateral rhonchi. HEART: S1 and S2 regular. EXTREMITIES: Significant muscle wasting. LABORATORY DATA: Hemoglobin and hematocrit today 10.5 and 31.5, white count 16.9, and platelet count 114,000. SMA-7: Sodium 140, potassium 2.2, chloride 114, CO2 of 18, glucose 104, BUN 8, and creatinine 0.4. ASSESSMENT: 1. Exacerbation of chronic obstructive lung disease. 2. Rule out underlying sepsis, so far the blood culture is negative . 3. Borderline troponin elevation. 4. Borderline hypotension. 5. Multifocal atrial tachycardia. 6. Hypokalemia and borderline hypomagnesemia. RECOMMENDATIONS: Case was discussed at length with the [employer] and the EKG that was done just now was reviewed. The patient will be maintained on Cardizem 30 mg every 8 hours once the blood pressure allows for giving Cardizem. Continue IV Rocephin 2 g daily, Crestor 5 mg once a day, Lovenox 30 mg subcutaneously daily, and Synthroid 50 mcg intravenously daily. The patient will receive 20 mEq of IV potassium in addition to 40 mEq of potassium chloride orally. The patient is a poor candidate and conservative medical approach will be maintained. The case was discussed with the patient's son at the bedside. Tru Vinson MD
--- NOTE | 2018-02-09 23:42 | CP.PCM.PN ---
Objective - Vital Signs/Intake and Output Vital Signs (last 24 hours): Temp Pulse Resp BP Pulse Ox 97.5 F L 130 H 26 H 110/71 88 L 02/09/18 15:00 02/09/18 15:00 02/09/18 15:00 02/09/18 15:00 02/09/18 15:00 Intake and Output: 02/09/18 02/10/18 18:59 06:59 Intake Total 680 Balance 680 - Medications Medications: Current Medications Acetaminophen (Tylenol 325mg Tab) 650 mg PO Q6 PRN PRN Reason: Pain, moderate (4-7) Albuterol/Ipratropium (Duoneb 3 Mg/0.5 Mg (3 Ml) Ud) 3 ml INH RQ6 [facility] Last Admin: 02/09/18 20:01 Dose: 3 ml Dextrose (Dextrose 50% Inj) 0 ml IV PRN PRN; Protocol PRN Reason: Hypoglycemia Protocol Last Admin: 02/09/18 06:04 Dose: 50 ml Diltiazem HCl (Cardizem) 30 mg PO Q8 [facility] Last Admin: 02/09/18 23:16 Dose: Not Given Enoxaparin Sodium (Lovenox) 30 mg SC DAILY [facility] Last Admin: 02/09/18 10:25 Dose: 30 mg Ceftriaxone Sodium 2 gm/ (Sodium Chloride) 100 mls @ 100 mls/hr IVPB Q24H [facility] PRN Reason: Protocol Last Admin: 02/09/18 08:36 Dose: 100 mls/hr Dextrose (Dextrose 10% In Water) 1,000 mls @ 70 mls/hr IV .[id number] [facility] Last Admin: 02/09/18 22:00 Dose: Not Given Levothyroxine Sodium (Synthroid) 50 mcg IVP DAILY [facility] Last Admin: 02/09/18 10:11 Dose: 50 mcg Lorazepam (Ativan) 0.5 mg PO BID [facility] Last Admin: 02/09/18 18:00 Dose: Not Given Potassium Chloride (Potassium Chloride Oral Soln) 20 meq PO BID [facility] Stop: 02/13/18 10:01 Roflumilast (Daliresp) 500 mcg PO DAILY [facility] Last Admin: 02/09/18 10:11 Dose: 500 mcg Rosuvastatin Calcium (Crestor) 5 mg PO HS [facility] Last Admin: 08/24/18 23:10 Dose: 5 mg Sucralfate (Carafate Oral Susp) 1 gm PO ACBHS [facility] Last Admin: 02/09/18 23:12 Dose: 1 gm Vitamin A (Vitamin A & D Oint Ud Foilpak) 1 ea EXT Q8 PRN PRN Reason: Dry SKIN - Labs Labs: 02/09/18 14:15 02/09/18 11:27 PT 18.1 SECONDS (9.7-12.2) H 02/05/18 18:00 INR 1.7 02/05/18 18:00 APTT 34 SECONDS (21-34) 02/05/18 18:00
[2018-02-10] MEDS: Albuterol-Ipratrop 3 mg / 0.5 (3 ml) UD INH SCH ×4 (01:39→19:32)
[2018-02-10] MEDS: Sucralfate 1 gm/10 ml Oral Susp UD PO SCH ×2 (08:08→21:55)
[2018-02-10] MEDS: cefTRIAXone 2 GM in Sodium Chloride 0.9% 100 ML IVPB SCH (08:09)
[2018-02-10 08:40] LABS: BASO % 0.2 % (0.0-2.0); EOS # 0.2 K/uL (0.0-0.7); EOS % 1.2 % (0.0-4.0); HEMOGLOBIN 9.4 g/dL (11.0-16.0); LYMPH # 0.7 K/uL (1.0-4.3); LYMPH % 5.1 % (20.0-40.0); MEAN CELL VOLUME 91.7 fL (81.0-99.0); MEAN CORPUSCULAR HEMOGLOBIN 30.4 pg (27.0-31.0); MEAN CORPUSCULAR HGB CONC 33.1 g/dL (33.0-37.0); MEAN PLATELET VOLUME 10.1 fL (7.2-11.7); MONO # 0.8 K/uL (0.0-0.8); MONO % 5.9 % (0.0-10.0); NEUT # 11.6 K/uL (1.8-7.0); NEUT % 87.6 % (50.0-75.0); NRBC % 0.3 % (0.0-2.0); PLATELET COUNT 193 K/uL (130-400); RED CELL DISTRIBUTION WIDTH 20.1 % (11.5-14.5); WHITE BLOOD COUNT 13.3 K/uL (4.8-10.8)
[2018-02-10 09:07] LABS: BLOOD UREA NITROGEN 6 mg/dL (7-17); CALCIUM 7.8 mg/dl (8.6-10.4); GFR NON-AFRICAN AMERICAN > 60
[2018-02-10 09:24] LABS: LYMPHOCYTE 4 % (20-40); MONOCYTE 2 % (0-10); NEUTROPHIL 94 % (50-75); TOTAL CELLS COUNTED 100
[2018-02-10 09:25] LABS: ANISOCYTOSIS SLIGHT; HYPOCHROMIC SLIGHT; PLATELET ESTIMATE NORMAL (NORMAL); POLYCHROMIC SLIGHT
[2018-02-10 09:26] LABS: BURR CELLS MODERATE
[2018-02-10] MEDS: Enoxaparin 30 mg Syringe SC SCH (10:36)
[2018-02-10] MEDS: Potassium Chloride 20 mEq/15 ml LIQ UD PO SCH ×2 (10:36→22:00)
[2018-02-10] MEDS: Levothyroxine 100 mcg (0.1 mg) Inj IVP SCH (11:08)
[2018-02-10] MEDS: Dextrose 50% SYRINGE Inj (50 ml) IV PRN (11:53)
--- NOTE | 2018-02-10 12:37 | PN ---
Copied To: Lex Patel MD Attending MD: Lex Patel MD DATE: 02/09/2018 SUBJECTIVE: The patient is weak. She is anxious. She is depressed. She constantly anxious upon going home. She is tachycardic and at times she is hypoglycemic. No fever. The patient needs to be on physical therapy and she needs to start eating. PHYSICAL EXAMINATION: VITAL SIGNS: Blood pressure 110/71, pulse 130, respiratory rate 26, and temperature 97.5. LUNGS: Bilateral scattered rales and rhonchi. CVS: S1 and S2 irregularly irregular, tachycardic. ABDOMEN: Soft. ASSESSMENT: 1. Chronic obstructive pulmonary disease exacerbation. 2. Urinary tract infection, rule out septicemia. 3. Dehydration. 4. Hypothyroidism. PLAN: Medical management. Monitor the patient. Lex Patel MD
--- NOTE | 2018-02-10 16:02 | CP.PCM.PN ---
Subjective - Date & Time of Evaluation Date of Evaluation: 02/10/18 Time of Evaluation: 13:25 - Subjective Subjective: the patient seen and examined no respiratory distress patient is off BiPAP Continue nebulizer treatment Objective - Vital Signs/Intake and Output Vital Signs (last 24 hours): Temp Pulse Resp BP Pulse Ox 97.5 F L 58 L 20 88/58 L 95 02/10/18 08:00 02/10/18 08:00 02/10/18 08:00 02/10/18 08:00 02/10/18 08:00 Intake and Output: 02/10/18 02/10/18 06:59 18:59 Intake Total 1300 Balance 1300 - Medications Medications: Current Medications Acetaminophen (Tylenol 325mg Tab) 650 mg PO Q6 PRN PRN Reason: Pain, moderate (4-7) Albuterol/Ipratropium (Duoneb 3 Mg/0.5 Mg (3 Ml) Ud) 3 ml INH RQ6 [facility] Last Admin: 02/10/18 13:37 Dose: 3 ml Dextrose (Dextrose 50% Inj) 0 ml IV PRN PRN; Protocol PRN Reason: Hypoglycemia Protocol Last Admin: 02/10/18 11:53 Dose: 50 ml Diltiazem HCl (Cardizem) 30 mg PO Q8 [facility] Last Admin: 02/10/18 06:11 Dose: Not Given Enoxaparin Sodium (Lovenox) 30 mg SC DAILY [facility] Last Admin: 02/10/18 10:36 Dose: 30 mg Ceftriaxone Sodium 2 gm/ (Sodium Chloride) 100 mls @ 100 mls/hr IVPB Q24H [facility] PRN Reason: Protocol Last Admin: 02/10/18 08:09 Dose: 100 mls/hr Dextrose (Dextrose 10% In Water) 1,000 mls @ 70 mls/hr IV .[id number] [facility] Last Admin: 02/10/18 07:48 Dose: Not Given Levothyroxine Sodium (Synthroid) 50 mcg IVP DAILY [facility] Last Admin: 02/10/18 11:08 Dose: 50 mcg Lorazepam (Ativan) 0.5 mg PO BID [facility] Last Admin: 02/10/18 10:36 Dose: 0.5 mg Potassium Chloride (Potassium Chloride Oral Soln) 20 meq PO BID [facility] Stop: 02/13/18 10:01 Last Admin: 02/10/18 10:36 Dose: 20 meq Roflumilast (Daliresp) 500 mcg PO DAILY [facility] Last Admin: 02/10/18 10:36 Dose: 500 mcg Rosuvastatin Calcium (Crestor) 5 mg PO HS [facility] Last Admin: 02/09/18 23:10 Dose: 5 mg Sucralfate (Carafate Oral Susp) 1 gm PO ACBHS [facility] Last Admin: 02/10/18 08:08 Dose: 1 gm Vitamin A (Vitamin A & D Oint Ud Foilpak) 1 ea EXT Q8 PRN PRN Reason: Dry SKIN - Labs Labs: 02/10/18 08:11 02/10/18 08:11 PT 18.1 SECONDS (9.7-12.2) H 02/05/18 18:00 INR 1.7 02/05/18 18:00 APTT 34 SECONDS (21-34) 02/05/18 18:00 - Head Exam Head Exam: ATRAUMATIC, NORMOCEPHALIC - ENT Exam ENT Exam: Mucous Membranes Moist - Neck Exam Neck Exam: Normal Inspection - Respiratory Exam Respiratory Exam: Decreased Breath Sounds - Cardiovascular Exam Cardiovascular Exam: REGULAR RHYTHM Assessment and Plan (1) COPD (chronic obstructive pulmonary disease) Status: Acute
--- NOTE | 2018-02-10 17:49 | PN ---
Copied To: Tru Vinson MD Attending MD: Tru Vinson MD DATE: 02/10/2018 SUBJECTIVE: The patient is confused to place. PHYSICAL EXAMINATION: GENERAL: She does not appear to be in respiratory distress. VITAL SIGNS: Blood pressure 88/58, heart rate 58, temperature 97.5, and respirations 20. HEENT: Pale conjunctivae. CHEST: Bilateral rhonchi. HEART: S1 and S2 regular. EXTREMITIES: Significant muscle wasting and trace edema. LABORATORY DATA: Hemoglobin and hematocrit 9.4 and 28.5, white count 13.3, and platelet count 195,000. SMA-7; sodium 137, potassium 3.5, chloride 110, CO2 of 17, glucose , BUN 6, and creatinine 0.4. Subsequent glucose was 31 and then 43. ASSESSMENT: 1. Borderline troponin elevation, consider non-ST elevation myocardial infarction. 2. Chronic obstructive lung disease. 3. Multifocal atrial tachycardia. 5. Anemia. 6. Hypokalemia. RECOMMENDATIONS: Continue IV Rocephin at 2 g daily, Crestor 5 mg once a day, Lovenox mg subcutaneously once a day, Synthroid 50 mcg intravenously daily. I will start potassium replacement at 20 mEq intravenously today. Tru Vinson MD
--- NOTE | 2018-02-10 22:30 | CP.PCM.PN ---
Objective - Vital Signs/Intake and Output Vital Signs (last 24 hours): Temp Pulse Resp BP Pulse Ox 97.3 F L 65 20 86/40 L 95 02/10/18 16:00 02/10/18 16:00 02/10/18 16:00 02/10/18 22:02 02/10/18 16:00 Intake and Output: 02/10/18 02/11/18 18:59 06:59 Intake Total 1300 Balance 1300 - Medications Medications: Current Medications Acetaminophen (Tylenol 325mg Tab) 650 mg PO Q6 PRN PRN Reason: Pain, moderate (4-7) Dextrose (Dextrose 50% Inj) 0 ml IV PRN PRN; Protocol PRN Reason: Hypoglycemia Protocol Last Admin: 02/10/18 11:53 Dose: 50 ml Diltiazem HCl (Cardizem) 30 mg PO Q8 [facility] Last Admin: 02/10/18 21:54 Dose: Not Given Enoxaparin Sodium (Lovenox) 30 mg SC DAILY [facility] Last Admin: 02/10/18 10:36 Dose: 30 mg Ceftriaxone Sodium 2 gm/ (Sodium Chloride) 100 mls @ 100 mls/hr IVPB Q24H [facility] PRN Reason: Protocol Last Admin: 02/10/18 08:09 Dose: 100 mls/hr Dextrose (Dextrose 10% In Water) 1,000 mls @ 70 mls/hr IV .[id number] [facility] Last Admin: 02/10/18 21:56 Dose: 70 mls/hr Levothyroxine Sodium (Synthroid) 50 mcg IVP DAILY [facility] Last Admin: 02/10/18 11:08 Dose: 50 mcg Lorazepam (Ativan) 0.5 mg PO BID [facility] Last Admin: 02/10/18 17:42 Dose: Not Given Potassium Chloride (Potassium Chloride Oral Soln) 20 meq PO BID [facility] Stop: 02/13/18 10:01 Last Admin: 02/10/18 22:00 Dose: 20 meq Roflumilast (Daliresp) 500 mcg PO DAILY [facility] Last Admin: 02/10/18 10:36 Dose: 500 mcg Rosuvastatin Calcium (Crestor) 5 mg PO HS [facility] Last Admin: 02/10/18 21:55 Dose: 5 mg Sucralfate (Carafate Oral Susp) 1 gm PO ACBHS [facility] Last Admin: 02/10/18 21:55 Dose: 1 gm Vitamin A (Vitamin A & D Oint Ud Foilpak) 1 ea EXT Q8 PRN PRN Reason: Dry SKIN - Labs Labs: 02/10/18 08:11 02/10/18 08:11 PT 18.1 SECONDS (9.7-12.2) H 02/05/18 18:00 INR 1.7 02/05/18 18:00 APTT 34 SECONDS (21-34) 02/05/18 18:00
[2018-02-11] MEDS: cefTRIAXone 2 GM in Sodium Chloride 0.9% 100 ML IVPB SCH (08:37)
[2018-02-11] MEDS: Sucralfate 1 gm/10 ml Oral Susp UD PO SCH ×3 (08:37→21:46)
[2018-02-11] MEDS: Potassium Chloride 20 mEq/15 ml LIQ UD PO SCH ×2 (10:34→21:42)
[2018-02-11] MEDS: Enoxaparin 30 mg Syringe SC SCH (10:34)
[2018-02-11] MEDS: Levothyroxine 100 mcg (0.1 mg) Inj IVP SCH (10:34)
[2018-02-11] MEDS: Dextrose 50% SYRINGE Inj (50 ml) IV PRN ×2 (11:15→21:34)
--- NOTE | 2018-02-11 12:01 | CP.PCM.PN ---
Subjective - Date & Time of Evaluation Date of Evaluation: 02/11/18 Time of Evaluation: 11:54 - Subjective Subjective: Pulmonary Evaluation: Covering Dr. Greer The patient was Seen/interviewed and examined by me at the bedside, Medical records reviewed and Management issues were discussed and formulated with the house staff. Events reviewed 82-year-old female with history of HTN, COPD, hypothyroidism, heart failure, PVD, atrial fibrillation, dementia and bedbound Who was sent to ER from the [facility] for Hypoxemia with O2 sat in 80s, elevated white count at 21.6, elevated sodium at 163, low potassium at 3.2. In ER patient received IV fluids, became short of breath, hypotensive and placed on BIPAP and she was initially admitted to the intensive care unit, Stabilized then transferred out to [facility] Awake, comfortable, NAD Improved Respiratory status, OFF BIPAP No evidence of fluid overload on Exam Breathing unlabored, on 3L NC O2 sat 95%. Confused, follows some commands Afebrile Denies any chest pain, SOB or Palpitations Receiveing Agressive K suplement Blood sugar last night was 47/54 pt was asymptomatic, received D 10 W, repeat was 79. Pt on Dextrose 10% In Water @ 70 mls/hr IV .[id number] Most recent BG 167 Objective - Vital Signs/Intake and Output Vital Signs (last 24 hours): Temp Pulse Resp BP Pulse Ox 98.7 F 60 20 105/59 L 96 02/11/18 08:00 02/11/18 08:00 02/11/18 08:00 02/11/18 08:00 02/11/18 08:00 Intake and Output: 02/11/18 02/11/18 06:59 18:59 Intake Total 610 560 Output Total 1 Balance 610 559 - Medications Medications: Current Medications Acetaminophen (Tylenol 325mg Tab) 650 mg PO Q6 PRN PRN Reason: Pain, moderate (4-7) Dextrose (Dextrose 50% Inj) 0 ml IV PRN PRN; Protocol PRN Reason: Hypoglycemia Protocol Last Admin: 02/11/18 11:15 Dose: 25 ml Diltiazem HCl (Cardizem) 30 mg PO Q8 [facility] Last Admin: 02/11/18 06:01 Dose: Not Given Enoxaparin Sodium (Lovenox) 30 mg SC DAILY [facility] Last Admin: 02/11/18 10:34 Dose: 30 mg Ceftriaxone Sodium 2 gm/ (Sodium Chloride) 100 mls @ 100 mls/hr IVPB Q24H [facility] PRN Reason: Protocol Last Admin: 02/11/18 08:37 Dose: 100 mls/hr Levothyroxine Sodium (Synthroid) 50 mcg IVP DAILY [facility] Last Admin: 02/11/18 10:34 Dose: 50 mcg Lorazepam (Ativan) 0.5 mg PO BID [facility] Last Admin: 02/11/18 10:34 Dose: 0.5 mg Potassium Chloride (Potassium Chloride Oral Soln) 20 meq PO BID [facility] Stop: 02/13/18 10:01 Last Admin: 02/11/18 10:34 Dose: 20 meq Roflumilast (Daliresp) 500 mcg PO DAILY [facility] Last Admin: 02/11/18 10:34 Dose: 500 mcg Rosuvastatin Calcium (Crestor) 5 mg PO HS [facility] Last Admin: 02/10/18 21:55 Dose: 5 mg Sucralfate (Carafate Oral Susp) 1 gm PO ACBHS [facility] Last Admin: 02/11/18 08:37 Dose: 1 gm Vitamin A (Vitamin A & D Oint Ud Foilpak) 1 ea EXT Q8 PRN PRN Reason: Dry SKIN - Labs Labs: 02/10/18 08:11 02/10/18 08:11 PT 18.1 SECONDS (9.7-12.2) H 02/05/18 18:00 INR 1.7 02/05/18 18:00 APTT 34 SECONDS (21-34) 02/05/18 18:00 - Constitutional Appears: Well, Non-toxic, No Acute Distress, Confused - Head Exam Head Exam: ATRAUMATIC, NORMAL INSPECTION, NORMOCEPHALIC - Eye Exam Eye Exam: EOMI, Normal appearance. absent: Conjunctival injection, Nystagmus Pupil Exam: NORMAL ACCOMODATION, PERRL - Neck Exam Neck Exam: Full ROM, Normal Inspection. absent: Lymphadenopathy, Tenderness - Respiratory Exam Respiratory Exam: Chest Wall Tenderness, Decreased Breath Sounds, Prolonged Expiratory Phase, Rhonchi. absent: Accessory Muscle Use, Clear to Ausculation Bilateral, Rales, Wheezes, Respiratory Distress - Cardiovascular Exam Cardiovascular Exam: Irregular Rhythm, +S1, +S2. absent: Tachycardia, REGULAR RHYTHM, JVD - GI/Abdominal Exam GI & Abdominal Exam: Distended, Normal Bowel Sounds. absent: Firm, Guarding, Rigid - Extremities Exam Extremities Exam: Normal Capillary Refill. absent: Calf Tenderness, Pedal Edema - Back Exam Back Exam: absent: CVA tenderness (L), CVA tenderness (R) - Neurological Exam Neurological Exam: Altered, Awake Assessment and Plan (1) Chr obstructive pulmonary disease w/ acute lower respiratory infxn Assessment & Plan: - Continue Nebulizer treatment - Roflumilast (Daliresp) 500 mcg PO DAILY - OFF Solumedrol - Continue Ceftriaxone Sodium 2 gm IVPB Q24H Status: Acute (2) Anxiety Assessment & Plan: Lorazepam (Ativan) 0.5 mg PO BID [facility] PRN Xanax Status: Acute (3) Atrial fibrillation with rapid ventricular response Assessment & Plan: - HR better comtrolled - Continue Diltiazem HCl (Cardizem) 30 mg PO Q8 [facility] Status: Acute (4) COPD exacerbation Status: Acute (5) Hypoglycemia Assessment & Plan: - Dextrose 10% In Water @ 70 mls/hr IV .[id number] - Most recent BG 167 Status: Acute (6) Chest wall contusion Assessment & Plan: - Pain medication for chest pain - Management per primary team Status: Acute (7) Dehydration Assessment & Plan: - Hydrationn - K suplement Status: Acute
--- NOTE | 2018-02-11 15:48 | PN ---
Copied To: Tru Vinson MD Attending MD: Tru Vinson MD DATE: 02/11/2018 SUBJECTIVE: The patient is mildly short of breath. She has very poor appetite. PHYSICAL EXAMINATION: VITAL SIGNS: Blood pressure 105/59, heart rate 60, temperature 98.7, and respirations 20. HEENT: Slight pallor. NECK: No JVD. CHEST: Diffuse bilateral rhonchi. HEART: S1 and S2 regular. ABDOMEN: Soft. EXTREMITIES: Significant muscle wasting. LABORATORY DATA: Today's blood sugars are 72, 69, 29, and 167. ASSESSMENT: 1. Chronic obstructive lung disease. 2. Multifocal atrial tachycardia. 3. Secondary pulmonary hypertension. 4. Dehydration with hypokalemia. 5. Mild anemia. 6. Status post hypotension. 7. Profound hypothyroidism. 8. Status post non-ST elevation myocardial infarction. 9. Hypoglycemic episode today. RECOMMENDATIONS: Continue Crestor at 5 mg once a day, Lovenox 15 mg once a day, KCl oral solution 20 mEq twice a day, and Synthroid 50 mcg intravenously daily. Tru Vinson MD
--- NOTE | 2018-02-11 23:25 | CP.PCM.PN ---
Objective - Vital Signs/Intake and Output Vital Signs (last 24 hours): Temp Pulse Resp BP Pulse Ox 98.4 F 102 H 20 105/70 95 02/11/18 15:00 02/11/18 15:00 02/11/18 15:00 02/11/18 21:42 02/11/18 15:00 Intake and Output: 02/11/18 02/12/18 18:59 06:59 Intake Total 560 Output Total 1 Balance 559 - Medications Medications: Current Medications Acetaminophen (Tylenol 325mg Tab) 650 mg PO Q6 PRN PRN Reason: Pain, moderate (4-7) Dextrose (Dextrose 50% Inj) 0 ml IV PRN PRN; Protocol PRN Reason: Hypoglycemia Protocol Last Admin: 02/11/18 21:34 Dose: 25 ml Diltiazem HCl (Cardizem) 30 mg PO Q8 [facility] Last Admin: 02/11/18 21:46 Dose: Not Given Enoxaparin Sodium (Lovenox) 30 mg SC DAILY [facility] Last Admin: 02/11/18 10:34 Dose: 30 mg Ceftriaxone Sodium 2 gm/ (Sodium Chloride) 100 mls @ 100 mls/hr IVPB Q24H [facility] PRN Reason: Protocol Last Admin: 02/11/18 08:37 Dose: 100 mls/hr Dextrose (Dextrose 10% In Water) 1,000 mls @ 70 mls/hr IV .[id number] [facility] Last Admin: 02/11/18 22:43 Dose: 70 mls/hr Levothyroxine Sodium (Synthroid) 50 mcg IVP DAILY [facility] Last Admin: 02/11/18 10:34 Dose: 50 mcg Lorazepam (Ativan) 0.5 mg PO BID [facility] Last Admin: 02/11/18 21:41 Dose: 0.5 mg Potassium Chloride (Potassium Chloride Oral Soln) 20 meq PO BID [facility] Stop: 02/13/18 10:01 Last Admin: 02/11/18 21:42 Dose: Not Given Roflumilast (Daliresp) 500 mcg PO DAILY [facility] Last Admin: 02/11/18 10:34 Dose: 500 mcg Rosuvastatin Calcium (Crestor) 5 mg PO HS [facility] Last Admin: 02/11/18 21:41 Dose: 5 mg Sucralfate (Carafate Oral Susp) 1 gm PO ACBHS [facility] Last Admin: 02/11/18 21:46 Dose: Not Given Vitamin A (Vitamin A & D Oint Ud Foilpak) 1 ea EXT Q8 PRN PRN Reason: Dry SKIN - Labs Labs: 02/10/18 08:11 02/10/18 08:11 PT 18.1 SECONDS (9.7-12.2) H 02/05/18 18:00 INR 1.7 02/05/18 18:00 APTT 34 SECONDS (21-34) 02/05/18 18:00
--- NOTE | 2018-02-12 03:08 | PN ---
Copied To: Lex Patel MD Attending MD: Lex Patel MD DATE: 02/11/2018 SUBJECTIVE: The patient is anxious. She is weak and she has poor appetite. She is on multiple medications. The patient has tiredness, anorexia, malaise, and fatigue. 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 She denies any abdominal pain, nausea, or vomiting. PHYSICAL EXAMINATION: VITAL SIGNS: BP 105/70, pulse 102, respiratory rate 20, temperature 98.4. LUNGS: Decreased air entry. CENTRAL NERVOUS SYSTEM: S1, S2 are regular. ABDOMEN: Soft. ASSESSMENT: 1. Urinary tract infection, rule out septicemia. 2. Dehydration. 3. Chronic obstructive pulmonary disease. 4. Hypertension. 5. Peripheral vascular disease. PLAN: Continue current medications. Monitor the patient. Lex Patel MD
[2018-02-12] MEDS: Sucralfate 1 gm/10 ml Oral Susp UD PO SCH ×2 (08:00→21:07)
[2018-02-12] MEDS: Potassium Chloride 20 mEq/15 ml LIQ UD PO SCH ×2 (09:52→18:07)
[2018-02-12] MEDS: Enoxaparin 30 mg Syringe SC SCH (10:01)
[2018-02-12] MEDS: Levothyroxine 100 mcg (0.1 mg) Inj IVP SCH (10:01)
[2018-02-12] MEDS: Nystatin 100,000 Units/ml Oral Susp 5 ml UD PO SCH ×4 (10:01→21:07)
[2018-02-12] MEDS: Dextrose 50% SYRINGE Inj (50 ml) IV PRN (11:24)
--- NOTE | 2018-02-12 11:32 | CARD ---
APPROVED REPORT Date of service: 02/09/2018 EKG Measurement Heart [id number] <Conclusion> MAT with premature ventricular or aberrantly conducted complexes Left axis deviation Inferior-posterior infarct, age undetermined T wave abnormality, consider lateral ischemia Abnormal ECG
[2018-02-12 11:35] LABS: BASO % 0.2 % (0.0-2.0); EOS # 0.1 K/uL (0.0-0.7); HEMOGLOBIN 9.9 g/dL (11.0-16.0); LYMPH # 0.5 K/uL (1.0-4.3); LYMPH % 3.7 % (20.0-40.0); MEAN CELL VOLUME 90.4 fL (81.0-99.0); MEAN CORPUSCULAR HEMOGLOBIN 29.9 pg (27.0-31.0); MEAN CORPUSCULAR HGB CONC 33.1 g/dL (33.0-37.0); MEAN PLATELET VOLUME 10.4 fL (7.2-11.7); MONO # 0.8 K/uL (0.0-0.8); MONO % 5.3 % (0.0-10.0); NEUT # 13.1 K/uL (1.8-7.0); NEUT % 89.8 % (50.0-75.0); NRBC % 0.1 % (0.0-2.0); PLATELET COUNT 227 K/uL (130-400); RED CELL DISTRIBUTION WIDTH 19.8 % (11.5-14.5); WHITE BLOOD COUNT 14.6 K/uL (4.8-10.8)
[2018-02-12 11:54] LABS: BLOOD UREA NITROGEN 3 mg/dL (7-17); CALCIUM 7.9 mg/dl (8.6-10.4); GFR NON-AFRICAN AMERICAN > 60
[2018-02-12 12:10] LABS: ANISOCYTOSIS MODERATE; BANDS 1 % (0-2); LYMPHOCYTE 3 % (20-40); MONOCYTE 5 % (0-10); NEUTROPHIL 91 % (50-75); PLATELET ESTIMATE NORMAL (NORMAL); TOTAL CELLS COUNTED 100
[2018-02-12 12:11] LABS: BURR CELLS MODERATE; OVALOCYTES SLIGHT; POIKILOCYTOSIS SLIGHT
[2018-02-12 12:13] LABS: LARGE PLATELETS PRESENT
[2018-02-12] MEDS: cefTRIAXone 2 GM in Sodium Chloride 0.9% 100 ML IVPB SCH (13:54)
--- NOTE | 2018-02-12 14:31 | CP.PCM.PN ---
Subjective - Date & Time of Evaluation Date of Evaluation: 02/12/18 Time of Evaluation: 10:20 - Subjective Subjective: patient seen and examined. no shortness of breath or cough noted Afebrile Objective - Vital Signs/Intake and Output Vital Signs (last 24 hours): Temp Pulse Resp BP Pulse Ox 98.8 F 83 20 109/70 95 02/12/18 08:00 02/12/18 08:00 02/12/18 08:00 02/12/18 08:00 02/12/18 08:00 Intake and Output: 02/12/18 02/12/18 06:59 18:59 Intake Total 570 650 Output Total 0 Balance 570 650 - Medications Medications: Current Medications Acetaminophen (Tylenol 325mg Tab) 650 mg PO Q6 PRN PRN Reason: Pain, moderate (4-7) Albuterol/Ipratropium (Duoneb 3 Mg/0.5 Mg (3 Ml) Ud) 3 ml INH RQ6 [facility] Dextrose (Dextrose 50% Inj) 0 ml IV PRN PRN; Protocol PRN Reason: Hypoglycemia Protocol Last Admin: 02/12/18 11:24 Dose: 50 ml Diltiazem HCl (Cardizem) 30 mg PO Q8 [facility] Last Admin: 02/12/18 07:05 Dose: Not Given Enoxaparin Sodium (Lovenox) 30 mg SC DAILY [facility] Last Admin: 02/12/18 10:01 Dose: 30 mg Dextrose (Dextrose 10% In Water) 1,000 mls @ 70 mls/hr IV .[id number] [facility] Last Admin: 02/12/18 09:00 Dose: 70 mls/hr Ceftriaxone Sodium 2 gm/ (Sodium Chloride) 100 mls @ 100 mls/hr IVPB Q24H [facility] PRN Reason: Protocol Last Admin: 02/12/18 13:54 Dose: 100 mls/hr Levothyroxine Sodium (Synthroid) 50 mcg IVP DAILY [facility] Last Admin: 02/12/18 10:01 Dose: 50 mcg Lorazepam (Ativan) 0.5 mg PO BID [facility] Last Admin: 02/12/18 09:52 Dose: Not Given Nystatin (Nystatin Oral Susp) 5 ml PO QID [facility] Last Admin: 02/12/18 13:54 Dose: 5 ml Potassium Chloride (Potassium Chloride Oral Soln) 20 meq PO BID [facility] Stop: 02/13/18 10:01 Last Admin: 02/12/18 09:52 Dose: Not Given Roflumilast (Daliresp) 500 mcg PO DAILY [facility] Last Admin: 02/12/18 09:52 Dose: Not Given Rosuvastatin Calcium (Crestor) 5 mg PO HS [facility] Last Admin: 02/11/18 21:41 Dose: 5 mg Sucralfate (Carafate Oral Susp) 1 gm PO ACBHS [facility] Last Admin: 02/12/18 08:00 Dose: Not Given Vitamin A (Vitamin A & D Oint Ud Foilpak) 1 ea EXT Q8 PRN PRN Reason: Dry SKIN - Labs Labs: 02/12/18 11:23 02/12/18 11:23 PT 18.1 SECONDS (9.7-12.2) H 02/05/18 18:00 INR 1.7 02/05/18 18:00 APTT 34 SECONDS (21-34) 02/05/18 18:00 - Head Exam Head Exam: ATRAUMATIC, NORMOCEPHALIC - ENT Exam ENT Exam: Mucous Membranes Moist - Neck Exam Neck Exam: Normal Inspection - Respiratory Exam Respiratory Exam: Decreased Breath Sounds Assessment and Plan (1) COPD (chronic obstructive pulmonary disease) Assessment & Plan: Continue nebulizer treatment Patient is off Solu-Medrol BiPAP as needed on antibiotics Continue oxygen Patient is DNR DNI Status: Acute
--- NOTE | 2018-02-12 16:00 | PN ---
Copied To: Tru Vinson MD Attending MD: Tru Vinson MD DATE: 02/12/2018 SUBJECTIVE: The patient is confused, mildly short of breath, but not in any acute distress. PHYSICAL EXAMINATION: VITAL SIGNS: Blood pressure 109/70, heart rate 83, earlier the heart rate was 66, temperature 98.8, and respirations 20. HEENT: Slightly pale conjunctivae. CHEST: Diffuse bilateral rhonchi. HEART: S1 and S2 regular. ABDOMEN: Soft. EXTREMITIES: No edema. LABORATORY DATA: Today's hemoglobin and hematocrit 9.9 and 29.8, white count 14.6, and platelet count 227,000. Today's SMA-7; sodium 133, potassium 2.6, chloride 103, CO2 of 22, glucose 45, BUN 3, and creatinine 0.5. EKG on 02/09/2018 revealed multifocal atrial tachycardia with PVCs versus aberrancy. Heart rate 133, infarct of indeterminate age ischemia. ASSESSMENT: 1. Exacerbation of chronic obstructive lung disease. 2. Multifocal atrial tachycardia. 3. Mild anemia. 4. Borderline troponin elevation. 5. Profound hypothyroidism. RECOMMENDATIONS: Continue Synthroid 15 mcg intravenously daily, continue subcutaneous Lovenox 30 mg once a day, Crestor 5 mg once a day, Rocephin at 2 g intravenously daily. The patient is being supplemented with potassium 20 mEq orally twice a day. I will also supplement additional 20 mEq of intravenous potassium. Tru Vinson MD
[2018-02-12] MEDS: Albuterol-Ipratrop 3 mg / 0.5 (3 ml) UD INH SCH (20:45)
--- NOTE | 2018-02-12 22:19 | CP.PCM.PN ---
Objective - Vital Signs/Intake and Output Vital Signs (last 24 hours): Temp Pulse Resp BP Pulse Ox 97.4 F L 79 26 H 100/67 100 02/12/18 15:00 02/12/18 15:00 02/12/18 15:00 02/12/18 15:00 02/12/18 15:00 Intake and Output: 02/12/18 02/13/18 18:59 06:59 Intake Total 1220 Output Total 1 Balance 1219 - Medications Medications: Current Medications Acetaminophen (Tylenol 325mg Tab) 650 mg PO Q6 PRN PRN Reason: Pain, moderate (4-7) Albuterol/Ipratropium (Duoneb 3 Mg/0.5 Mg (3 Ml) Ud) 3 ml INH RQ6 [facility] Last Admin: 02/12/18 20:45 Dose: 3 ml Dextrose (Dextrose 50% Inj) 0 ml IV PRN PRN; Protocol PRN Reason: Hypoglycemia Protocol Last Admin: 02/12/18 11:24 Dose: 50 ml Diltiazem HCl (Cardizem) 30 mg PO Q8 [facility] Last Admin: 02/12/18 21:07 Dose: Not Given Enoxaparin Sodium (Lovenox) 30 mg SC DAILY [facility] Last Admin: 02/12/18 10:01 Dose: 30 mg Dextrose (Dextrose 10% In Water) 1,000 mls @ 70 mls/hr IV .[id number] [facility] Last Admin: 02/12/18 09:00 Dose: 70 mls/hr Ceftriaxone Sodium 2 gm/ (Sodium Chloride) 100 mls @ 100 mls/hr IVPB Q24H [facility] PRN Reason: Protocol Last Admin: 02/12/18 13:54 Dose: 100 mls/hr Levothyroxine Sodium (Synthroid) 50 mcg IVP DAILY [facility] Last Admin: 02/12/18 10:01 Dose: 50 mcg Lorazepam (Ativan) 0.5 mg PO BID [facility] Last Admin: 02/12/18 18:07 Dose: Not Given Nystatin (Nystatin Oral Susp) 5 ml PO QID [facility] Last Admin: 02/12/18 21:07 Dose: Not Given Potassium Chloride (Potassium Chloride Oral Soln) 20 meq PO BID [facility] Stop: 02/13/18 10:01 Last Admin: 02/12/18 18:07 Dose: Not Given Roflumilast (Daliresp) 500 mcg PO DAILY [facility] Last Admin: 02/12/18 09:52 Dose: Not Given Rosuvastatin Calcium (Crestor) 5 mg PO HS [facility] Last Admin: 02/12/18 21:07 Dose: Not Given Sucralfate (Carafate Oral Susp) 1 gm PO ACBHS [facility] Last Admin: 02/12/18 21:07 Dose: Not Given Vitamin A (Vitamin A & D Oint Ud Foilpak) 1 ea EXT Q8 PRN PRN Reason: Dry SKIN - Labs Labs: 02/12/18 11:23 02/12/18 11:23 PT 18.1 SECONDS (9.7-12.2) H 02/05/18 18:00 INR 1.7 02/05/18 18:00 APTT 34 SECONDS (21-34) 02/05/18 18:00
--- NOTE | 2018-02-13 02:11 | PN ---
Copied To: Lex Patel MD Attending MD: Lex Patel MD DATE: 02/12/2018 SUBJECTIVE: The patient is feeling better. Her appetite is poor. No shortness of breath. No fever. PHYSICAL EXAMINATION: VITAL SIGNS: Stable. Blood pressure is 100/67, pulse 79, respiratory rate 26, temperature 97.4. LUNGS: Bilateral decreased air entry. Positive scattered rales and rhonchi. CVS: S1 and S2 regular. ABDOMEN: Soft. ASSESSMENT: 1. Poor oral intake. 2. Chronic obstructive pulmonary disease. 3. Urinary tract infection with septicemia. 4. Peripheral vascular disease. 5. Hypothyroidism. 6. Anemia. PLAN: Continue current medication. Monitor the patient. Lex Patel MD
[2018-02-13] MEDS: Albuterol-Ipratrop 3 mg / 0.5 (3 ml) UD INH SCH ×4 (02:37→19:36)
[2018-02-13] MEDS: Sucralfate 1 gm/10 ml Oral Susp UD PO SCH ×2 (06:30→22:12)
[2018-02-13] MEDS: Potassium Chloride 20 mEq/15 ml LIQ UD PO SCH (10:20)
[2018-02-13] MEDS: Nystatin 100,000 Units/ml Oral Susp 5 ml UD PO SCH ×4 (10:20→22:13)
[2018-02-13] MEDS: Enoxaparin 30 mg Syringe SC SCH (10:31)
[2018-02-13] MEDS: Levothyroxine 100 mcg (0.1 mg) Inj IVP SCH (10:33)
[2018-02-13] MEDS: Dextrose 50% SYRINGE Inj (50 ml) IV PRN ×2 (11:38→21:48)
[2018-02-13 12:53] LABS: BLOOD UREA NITROGEN 2 mg/dL (7-17); CALCIUM 7.1 mg/dl (8.6-10.4); GFR NON-AFRICAN AMERICAN > 60
[2018-02-13] MEDS: metroNIDAZOLE IV 500 mg/100 ml 500 MG/100 ML BAG IVPB SCH ×2 (14:00→21:49)
[2018-02-13] MEDS: cefTRIAXone 2 GM in Sodium Chloride 0.9% 100 ML IVPB SCH (14:48)
--- NOTE | 2018-02-13 15:36 | CP.PCM.CON ---
History of Present Illness - History of Present Illness History of Present Illness: PGY-4 GI Fellow Consult Note The following mostly obtained from chart review and hospital staff due to patient's dementia/clinical status. Pt is a 82 year old patient with history of COPD, PVD, HTN, CHF came into the hospital for shortness of breath on 02/05/18. She was sent from her skilled nursing due to hypoxia, elevated WBC, and electrolyte abnormalities. Patient was initially admitted to the ICU on BiPAP and was eventually transferred to the medical [facility]. After admission, she has been treated for urosepsis. Cultures have been negative, but remains on antibiotics due to persistent leukocytosis. During her stay, patient's appetite has decreased over time and has had a hard time swallowing. Patient is currently on a pureed diet but not taking much PO. After primary team and family discussed goals of care, they decided to have PEG tube placed. Therefore, GI consulted. During my encounter, patient lying in bed wearing NC O2. She is soft spoken and mumbles mostly. With much prompting, when asked the date, she replies with "June 19 1931." She is able to state that she is in a hospital in [place]. She denies any complaints at the time other than feeling cold. Unable to obtain full ROS due to clinical condition MHx: HTN, A-Fib, CHF, COPD, Dementia, PVD, Hypothyroidism, Osteoarthritis SurgHx: PCI Endo: EGD 12/26/17 - Gastritis and Duodenitis (biopsies negative). Colonoscopy - Int Hemorrhoids. Meds: Dulera, Diltiazem, Multivitamin, Carafate, Crestor, Synthroiid, Ativan, Advair, Duoneb, Tylenol, Questran FamHx: Unknown SocHx: No alcohol and drug use; previous smoker All: NKDA Past Patient History - Infectious Disease Hx of Infectious Diseases: None - Past Medical History & Family History Past Medical History?: Yes - Past Social History Smoking Status: Unknown If Ever Smoked - CARDIAC Hx Cardiac Disorders: Yes (CORONARY STENT; AFIB) Hx Congestive Heart Failure: Yes Hx Hypertension: Yes - PULMONARY Hx Chronic Obstructive Pulmonary Disease (COPD): Yes - NEUROLOGICAL Hx Dementia: Yes - HEENT Hx HEENT Problems: No - RENAL Hx Chronic Kidney Disease: No - ENDOCRINE/METABOLIC Hx Hypothyroidism: Yes - HEMATOLOGICAL/ONCOLOGICAL Hx Blood Disorders: No Hx Blood Transfusions: No Hx Cancer: Yes ("STOMACH") - INTEGUMENTARY Hx Dermatological Problems: No - MUSCULOSKELETAL/RHEUMATOLOGICAL Hx Arthritis: Yes - GASTROINTESTINAL Hx Gastritis: Yes - GENITOURINARY/GYNECOLOGICAL Hx Genitourinary Disorders: No - PSYCHIATRIC Hx Anxiety: Yes Hx Substance Use: No - SURGICAL HISTORY Hx Coronary Stent: Yes - ANESTHESIA Hx Anesthesia: Yes Hx Anesthesia Reactions: No Hx Malignant Hyperthermia: No Meds Allergies/Adverse Reactions: Allergies Allergy/AdvReac Type Severity Reaction Status Date / Time No Known Allergies Allergy Verified 01/10/18 01:16 - Medications Medications: Current Medications Acetaminophen (Tylenol 325mg Tab) 650 mg PO Q6 PRN PRN Reason: Pain, moderate (4-7) Albuterol/Ipratropium (Duoneb 3 Mg/0.5 Mg (3 Ml) Ud) 3 ml INH RQ6 [facility] Last Admin: 02/13/18 13:50 Dose: 3 ml Dextrose (Dextrose 50% Inj) 0 ml IV PRN PRN; Protocol PRN Reason: Hypoglycemia Protocol Last Admin: 02/13/18 11:38 Dose: 50 ml Diltiazem HCl (Cardizem) 30 mg PO Q8 [facility] Last Admin: 02/13/18 13:15 Dose: Not Given Dextrose (Dextrose 10% In Water) 1,000 mls @ 70 mls/hr IV .[id number] [facility] Last Admin: 02/13/18 14:13 Dose: Not Given Ceftriaxone Sodium 2 gm/ (Sodium Chloride) 100 mls @ 100 mls/hr IVPB Q24H [facility] PRN Reason: Protocol Last Admin: 02/13/18 14:48 Dose: 100 mls/hr Metronidazole (Flagyl) 500 mg in 100 mls @ 100 mls/hr IVPB Q8H [facility] PRN Reason: Protocol Last Admin: 02/13/18 14:00 Dose: 100 mls/hr Potassium Chloride (Potassium Chloride 20 Meq/100 Ml) 20 meq in 100 mls @ 50 mls/hr IVPB Q2H [facility] Stop: 02/13/18 20:59 Last Admin: 02/13/18 14:57 Dose: 50 mls/hr Levothyroxine Sodium (Synthroid) 50 mcg IVP DAILY [facility] Last Admin: 02/13/18 10:33 Dose: 50 mcg Lorazepam (Ativan) 0.5 mg PO BID [facility] Last Admin: 02/13/18 10:20 Dose: 0.5 mg Nystatin (Nystatin Oral Susp) 5 ml PO QID [facility] Last Admin: 02/13/18 13:15 Dose: Not Given Roflumilast (Daliresp) 500 mcg PO DAILY [facility] Last Admin: 02/13/18 10:33 Dose: 500 mcg Rosuvastatin Calcium (Crestor) 5 mg PO HS [facility] Last Admin: 02/12/18 21:07 Dose: Not Given Sucralfate (Carafate Oral Susp) 1 gm PO ACBHS [facility] Last Admin: 02/13/18 06:30 Dose: Not Given Vitamin A (Vitamin A & D Oint Ud Foilpak) 1 ea EXT Q8 PRN PRN Reason: Dry SKIN Physical Exam - Constitutional Appears: Confused, Cachectic, Chronically Ill - Head Exam Head Exam: ATRAUMATIC, NORMAL INSPECTION - Eye Exam Eye Exam: EOMI. absent: Conjunctival injection, Scleral icterus - ENT Exam ENT Exam: Mucous Membranes Dry, Normal External Ear Exam. absent: Mucous Membranes Moist - Respiratory Exam Respiratory Exam: NORMAL BREATHING PATTERN. absent: Wheezes - Cardiovascular Exam Cardiovascular Exam: REGULAR RHYTHM, RRR - GI/Abdominal Exam GI & Abdominal Exam: Normal Bowel Sounds, Soft. absent: Bruit, Diminished Bowel Sounds, Distended, Firm, Guarding, Hernia, Hyperactive Bowel Sounds, Hypoactive Bowel Sounds, Mass, Organomegaly, Pulsatile Mass, Rebound, Rigid, Tenderness - Rectal Exam Rectal Exam: Deferred - Extremities Exam Extremities exam: Positive for: normal inspection. Negative for: pedal edema - Neurological Exam Neurological exam: Alert Additional comments: Ox2 - Psychiatric Exam Psychiatric exam: Normal Affect, Normal Mood - Skin Skin Exam: Dry, Warm Results - Vital Signs Recent Vital Signs: Last Vital Signs Temp 97.6 F 02/13/18 07:45 Pulse 69 02/13/18 07:56 Resp 20 02/13/18 07:56 BP 112/58 L 02/13/18 07:56 Pulse Ox 97 02/13/18 07:56 - Labs Result Diagrams: 02/12/18 11:23 02/13/18 12:08 Labs: Laboratory Results - last 24 hr 02/12/18 02/12/18 02/12/18 16:25 16:27 21:24 Sodium Potassium Chloride Carbon Dioxide Anion Gap BUN Creatinine Est GFR ( Amer) Est GFR (Non-Af Amer) POC Glucose (mg/dL) 68 72 77 Random Glucose Calcium 02/13/18 02/13/18 02/13/18 00:26 05:25 11:18 Sodium Potassium Chloride Carbon Dioxide Anion Gap BUN Creatinine Est GFR ( Amer) Est GFR (Non-Af Amer) POC Glucose (mg/dL) 85 97 65 Random Glucose Calcium 02/13/18 02/13/18 11:20 12:08 Sodium 124 L Potassium 2.4 L* Chloride 97 L Carbon Dioxide 20 L Anion Gap 9 L BUN 2 L Creatinine 0.4 L Est GFR ( Amer) > 60 Est GFR (Non-Af Amer) > 60 POC Glucose (mg/dL) 71 Random Glucose 380 H Calcium 7.1 L Assessment & Plan - Assessment and Plan (Free Text) Assessment: 82 yo BF with Dementia, CHF, COPD, PVD admitted for hypoxia and treated for urosepsis. GI consulted for PEG placement due to poor PO intake. # Failure to thrive: Multifactorial due to dementia, chronic illness and prolonged hospitalization. Pt not taking adequate PO intake. Family requests PEG, placement. Called homero Srikanth at number listed in chart to discuss procedure and risks/benefits, but there was no answer. Plan: - Attempt to contact family again today and tomorrow as need their consent - Tentatively planned for PEG 02/14 - IV Metro - NPO at [place] - Hold chem DVT ppx - Check CBC, INR in AM Pt discussed with Dr. Cain. See his attestation for further recs/changes.
--- NOTE | 2018-02-13 16:19 | CP.PCM.PN ---
Subjective - Date & Time of Evaluation Date of Evaluation: 02/13/18 Time of Evaluation: 15:20 - Subjective Subjective: patient seen and examined Patient is out of BED to chair appears dyspneic Afebrile poor Appetite Objective - Vital Signs/Intake and Output Vital Signs (last 24 hours): Temp Pulse Resp BP Pulse Ox 97.6 F 69 20 112/58 L 97 02/13/18 07:45 02/13/18 07:56 02/13/18 07:56 02/13/18 07:56 02/13/18 07:56 Intake and Output: 02/13/18 02/13/18 06:59 18:59 Intake Total 1190 Output Total 3 Balance 1187 - Medications Medications: Current Medications Acetaminophen (Tylenol 325mg Tab) 650 mg PO Q6 PRN PRN Reason: Pain, moderate (4-7) Albuterol/Ipratropium (Duoneb 3 Mg/0.5 Mg (3 Ml) Ud) 3 ml INH RQ6 [facility] Last Admin: 02/13/18 13:50 Dose: 3 ml Dextrose (Dextrose 50% Inj) 0 ml IV PRN PRN; Protocol PRN Reason: Hypoglycemia Protocol Last Admin: 02/13/18 11:38 Dose: 50 ml Diltiazem HCl (Cardizem) 30 mg PO Q8 [facility] Last Admin: 02/13/18 13:15 Dose: Not Given Dextrose (Dextrose 10% In Water) 1,000 mls @ 70 mls/hr IV .[id number] [facility] Last Admin: 02/13/18 14:13 Dose: Not Given Ceftriaxone Sodium 2 gm/ (Sodium Chloride) 100 mls @ 100 mls/hr IVPB Q24H [facility] PRN Reason: Protocol Last Admin: 02/13/18 14:48 Dose: 100 mls/hr Metronidazole (Flagyl) 500 mg in 100 mls @ 100 mls/hr IVPB Q8H [facility] PRN Reason: Protocol Last Admin: 02/13/18 14:00 Dose: 100 mls/hr Potassium Chloride (Potassium Chloride 20 Meq/100 Ml) 20 meq in 100 mls @ 50 mls/hr IVPB Q2H [facility] Stop: 02/13/18 20:59 Last Admin: 02/13/18 14:57 Dose: 50 mls/hr Levothyroxine Sodium (Synthroid) 50 mcg IVP DAILY [facility] Last Admin: 02/13/18 10:33 Dose: 50 mcg Lorazepam (Ativan) 0.5 mg PO BID [facility] Last Admin: 02/13/18 10:20 Dose: 0.5 mg Nystatin (Nystatin Oral Susp) 5 ml PO QID [facility] Last Admin: 02/13/18 13:15 Dose: Not Given Roflumilast (Daliresp) 500 mcg PO DAILY [facility] Last Admin: 02/13/18 10:33 Dose: 500 mcg Rosuvastatin Calcium (Crestor) 5 mg PO HS [facility] Last Admin: 02/12/18 21:07 Dose: Not Given Sucralfate (Carafate Oral Susp) 1 gm PO ACBHS [facility] Last Admin: 02/13/18 06:30 Dose: Not Given Vitamin A (Vitamin A & D Oint Ud Foilpak) 1 ea EXT Q8 PRN PRN Reason: Dry SKIN - Labs Labs: 02/12/18 11:23 02/13/18 12:08 PT 18.1 SECONDS (9.7-12.2) H 02/05/18 18:00 INR 1.7 02/05/18 18:00 APTT 34 SECONDS (21-34) 02/05/18 18:00 - Head Exam Head Exam: ATRAUMATIC, NORMOCEPHALIC - Neck Exam Neck Exam: Normal Inspection - Respiratory Exam Respiratory Exam: Decreased Breath Sounds - Cardiovascular Exam Cardiovascular Exam: Irregular Rhythm - GI/Abdominal Exam GI & Abdominal Exam: Soft, Normal Bowel Sounds Assessment and Plan (1) COPD (chronic obstructive pulmonary disease) Assessment & Plan: continue nebulizer treatment BiPAP as needed Patient is for PEG insertion tomorrow Continue present treatment Status: Acute
--- NOTE | 2018-02-13 18:17 | PN ---
Copied To: Tru Vinson MD Attending MD: Tru Vinson MD DATE: 02/13/2018 SUBJECTIVE: The patient is confused. She is sitting on a recliner, does not appear to be in respiratory distress. PHYSICAL EXAMINATION: VITAL SIGNS: Blood pressure 112/58, heart rate 69, temperature 97.6, and respirations 19. HEENT: Espino conjunctivae. CHEST: Bilateral rhonchi. HEART: S1 and S2 regular. ABDOMEN: Soft. EXTREMITIES: No edema. LABORATORY DATA: SMA-7; sodium 124, potassium 2.4, chloride 97, CO2 of 20, glucose 380, BUN 2, and creatinine 0.4. ASSESSMENT: 1. Dehydration. 2. Hyponatremia and hypokalemia. 3. Consider non-ST elevation myocardial infarction. 4. Anemia. 5. Chronic obstructive lung disease. 6. Secondary pulmonary hypertension. RECOMMENDATIONS: Continue current IV Rocephin at 2 g daily and IV Flagyl 500 mg intravenously every 8 hours. The patient is currently receiving 20 mEq of IV potassium replacement. Continue Synthroid at 50 mcg intravenously daily. Tru Vinson MD
--- NOTE | 2018-02-13 23:25 | CP.PCM.PN ---
Objective - Vital Signs/Intake and Output Vital Signs (last 24 hours): Temp Pulse Resp BP Pulse Ox 97.3 F L 107 H 18 106/64 100 02/13/18 16:00 02/13/18 16:00 02/13/18 16:00 02/13/18 16:00 02/13/18 16:00 Intake and Output: 02/13/18 02/14/18 18:59 06:59 Intake Total 570 Output Total 2 Balance 568 - Medications Medications: Current Medications Acetaminophen (Tylenol 325mg Tab) 650 mg PO Q6 PRN PRN Reason: Pain, moderate (4-7) Albuterol/Ipratropium (Duoneb 3 Mg/0.5 Mg (3 Ml) Ud) 3 ml INH RQ6 [facility] Last Admin: 02/13/18 19:36 Dose: 3 ml Dextrose (Dextrose 50% Inj) 0 ml IV PRN PRN; Protocol PRN Reason: Hypoglycemia Protocol Last Admin: 02/13/18 21:48 Dose: 50 ml Diltiazem HCl (Cardizem) 30 mg PO Q8 [facility] Last Admin: 02/13/18 22:12 Dose: Not Given Dextrose (Dextrose 10% In Water) 1,000 mls @ 70 mls/hr IV .[id number] [facility] Last Admin: 02/13/18 14:13 Dose: Not Given Ceftriaxone Sodium 2 gm/ (Sodium Chloride) 100 mls @ 100 mls/hr IVPB Q24H [facility] PRN Reason: Protocol Last Admin: 02/13/18 14:48 Dose: 100 mls/hr Metronidazole (Flagyl) 500 mg in 100 mls @ 100 mls/hr IVPB Q8H [facility] PRN Reason: Protocol Last Admin: 02/13/18 21:49 Dose: 100 mls/hr Levothyroxine Sodium (Synthroid) 50 mcg IVP DAILY [facility] Last Admin: 02/13/18 10:33 Dose: 50 mcg Lorazepam (Ativan) 0.5 mg PO BID [facility] Last Admin: 02/13/18 17:34 Dose: 0.5 mg Nystatin (Nystatin Oral Susp) 5 ml PO QID [facility] Last Admin: 02/13/18 22:13 Dose: Not Given Roflumilast (Daliresp) 500 mcg PO DAILY [facility] Last Admin: 02/13/18 10:33 Dose: 500 mcg Rosuvastatin Calcium (Crestor) 5 mg PO HS [facility] Last Admin: 02/13/18 22:12 Dose: Not Given Sucralfate (Carafate Oral Susp) 1 gm PO ACBHS [facility] Last Admin: 02/13/18 22:12 Dose: Not Given Vitamin A (Vitamin A & D Oint Ud Foilpak) 1 ea EXT Q8 PRN PRN Reason: Dry SKIN - Labs Labs: 02/12/18 11:23 02/13/18 12:08 PT 18.1 SECONDS (9.7-12.2) H 02/05/18 18:00 INR 1.7 02/05/18 18:00 APTT 34 SECONDS (21-34) 02/05/18 18:00
[2018-02-14] MEDS: Albuterol-Ipratrop 3 mg / 0.5 (3 ml) UD INH SCH ×4 (01:27→20:12)
--- NOTE | 2018-02-14 04:52 | PN ---
Copied To: Lex Patel MD Attending MD: Lex Patel MD DATE: 02/13/2018 SUBJECTIVE: The patient is for PEG placement. She is DNR. Family ____ hospice. She is DNI. PHYSICAL EXAMINATION: VITAL SIGNS: Blood pressure 106/64, pulse 107, respiratory rate 18, temperature 97.3. LUNGS: Bilateral rhonchi, decreased air entry. CVS: S1 and S2 regular. ABDOMEN: Soft. ASSESSMENT: 1. Inability to thrive. Poor oral intake, weight loss, on PEG. 2. Severe hypokalemia, potassium replacement. 3. Chronic obstructive pulmonary disease. 4. Anxiety. PLAN: Potassium replacement. Repeat labs. Monitor the patient. Lex Patel MD
[2018-02-14] MEDS: metroNIDAZOLE IV 500 mg/100 ml 500 MG/100 ML BAG IVPB SCH ×3 (05:26→21:51)
[2018-02-14 06:29] LABS: BASO % 0.2 % (0.0-2.0); EOS # 0.1 K/uL (0.0-0.7); EOS % 1.3 % (0.0-4.0); HEMOGLOBIN 7.9 g/dL (11.0-16.0); LYMPH # 0.6 K/uL (1.0-4.3); LYMPH % 6.3 % (20.0-40.0); MEAN CELL VOLUME 86.9 fL (81.0-99.0); MEAN CORPUSCULAR HEMOGLOBIN 30.9 pg (27.0-31.0); MEAN CORPUSCULAR HGB CONC 35.6 g/dL (33.0-37.0); MEAN PLATELET VOLUME 10.3 fL (7.2-11.7); MONO # 0.5 K/uL (0.0-0.8); MONO % 5.3 % (0.0-10.0); NEUT # 8.5 K/uL (1.8-7.0); NEUT % 86.9 % (50.0-75.0); NRBC % 0.1 % (0.0-2.0); PLATELET COUNT 178 K/uL (130-400); RBC 2.57 Mil/uL (3.80-5.20); RED CELL DISTRIBUTION WIDTH 18.9 % (11.5-14.5); WHITE BLOOD COUNT 9.8 K/uL (4.8-10.8)
[2018-02-14 06:36] LABS: INR 1.4; PROTHROMBIN TIME 15.6 SECONDS (9.7-12.2)
[2018-02-14 06:47] LABS: BLOOD UREA NITROGEN < 2 mg/dL (7-17); CALCIUM 7.7 mg/dl (8.6-10.4); GFR NON-AFRICAN AMERICAN > 60
[2018-02-14] MEDS: Magnesium Sulfate 1 gm in D5W 1 GM/100 ML BAG IVPB SCH ×5 (08:09→11:23)
[2018-02-14] MEDS: Sucralfate 1 gm/10 ml Oral Susp UD PO SCH ×2 (08:20→21:50)
[2018-02-14] MEDS: Dextrose 50% SYRINGE Inj (50 ml) IV PRN ×2 (08:20→21:46)
[2018-02-14 09:41] LABS: TOTAL CELLS COUNTED 100
[2018-02-14 09:42] LABS: ANISOCYTOSIS MODERATE; EOSINOPHIL 1 % (0-4); LYMPHOCYTE 6 % (20-40); MONOCYTE 4 % (0-10); NEUTROPHIL 89 % (50-75); PLATELET ESTIMATE NORMAL (NORMAL)
[2018-02-14 09:43] LABS: BURR CELLS MODERATE; LARGE PLATELETS PRESENT
--- NOTE | 2018-02-14 10:29 | CP.PCM.PN ---
Subjective - Date & Time of Evaluation Date of Evaluation: 02/14/18 Time of Evaluation: 10:00 - Subjective Subjective: PGY-4 GI Fellow Prog Note Pt lying in bed when seen this AM. Only mumbles limiting history. When asked about any complaints, she replied that she is cold. Unable to obtain ROS due to clinical condition Objective - Vital Signs/Intake and Output Vital Signs (last 24 hours): Temp Pulse Resp BP Pulse Ox 97.3 F L 88 19 92/58 L 96 02/14/18 08:01 02/14/18 08:01 02/14/18 08:01 02/14/18 08:01 02/14/18 08:01 Intake and Output: 02/14/18 02/14/18 06:59 18:59 Intake Total 1130 Output Total 2 Balance 1128 - Medications Medications: Current Medications Acetaminophen (Tylenol 325mg Tab) 650 mg PO Q6 PRN PRN Reason: Pain, moderate (4-7) Albuterol/Ipratropium (Duoneb 3 Mg/0.5 Mg (3 Ml) Ud) 3 ml INH RQ6 [facility] Last Admin: 02/14/18 07:48 Dose: 3 ml Dextrose (Dextrose 50% Inj) 0 ml IV PRN PRN; Protocol PRN Reason: Hypoglycemia Protocol Last Admin: 02/14/18 08:20 Dose: 50 ml Diltiazem HCl (Cardizem) 30 mg PO Q8 [facility] Last Admin: 02/14/18 06:03 Dose: Not Given Dextrose (Dextrose 10% In Water) 1,000 mls @ 70 mls/hr IV .[id number] [facility] Last Admin: 02/14/18 05:27 Dose: Not Given Ceftriaxone Sodium 2 gm/ (Sodium Chloride) 100 mls @ 100 mls/hr IVPB Q24H [facility] PRN Reason: Protocol Last Admin: 02/13/18 14:48 Dose: 100 mls/hr Metronidazole (Flagyl) 500 mg in 100 mls @ 100 mls/hr IVPB Q8H [facility] PRN Reason: Protocol Last Admin: 02/14/18 05:26 Dose: 100 mls/hr Potassium Chloride (Potassium Chloride 20 Meq/100 Ml) 20 meq in 100 mls @ 50 mls/hr IVPB Q2 [facility] Stop: 02/14/18 15:59 Last Admin: 02/14/18 08:16 Dose: 50 mls/hr Levothyroxine Sodium (Synthroid) 50 mcg IVP DAILY [facility] Last Admin: 02/13/18 10:33 Dose: 50 mcg Lorazepam (Ativan) 0.5 mg PO BID [facility] Last Admin: 02/13/18 17:34 Dose: 0.5 mg Nystatin (Nystatin Oral Susp) 5 ml PO QID [facility] Last Admin: 02/13/18 22:13 Dose: Not Given Roflumilast (Daliresp) 500 mcg PO DAILY [facility] Last Admin: 02/13/18 10:33 Dose: 500 mcg Rosuvastatin Calcium (Crestor) 5 mg PO HS [facility] Last Admin: 02/13/18 22:12 Dose: Not Given Sucralfate (Carafate Oral Susp) 1 gm PO ACBHS [facility] Last Admin: 02/14/18 08:20 Dose: Not Given Vitamin A (Vitamin A & D Oint Ud Foilpak) 1 ea EXT Q8 PRN PRN Reason: Dry SKIN - Labs Labs: 02/14/18 06:22 02/14/18 06:22 PT 15.6 SECONDS (9.7-12.2) H 02/14/18 06:22 INR 1.4 02/14/18 06:22 APTT 34 SECONDS (21-34) 02/05/18 18:00 - Constitutional Appears: Cachectic, Chronically Ill - Head Exam Head Exam: ATRAUMATIC, NORMAL INSPECTION - Eye Exam Eye Exam: EOMI. absent: Conjunctival injection, Scleral icterus - ENT Exam ENT Exam: Mucous Membranes Dry, Normal External Ear Exam. absent: Mucous Membranes Moist - GI/Abdominal Exam GI & Abdominal Exam: Soft, Normal Bowel Sounds. absent: Bruit, Distended, Firm , Guarding, Rigid, Tenderness, Mass, Organomegaly, Pulsatile Mass, Rebound Assessment and Plan - Assessment and Plan (Free Text) Assessment: 82 yo BF with Dementia, CHF, COPD, PVD admitted for hypoxia and treated for urosepsis. GI consulted for PEG placement due to poor PO intake. # Failure to thrive: Multifactorial due to dementia, chronic illness and prolonged hospitalization. Pt not taking adequate PO intake. Family requests PEG, placement. Called homreo [facility] at number listed in chart to discuss procedure and risks/benefits, but there was no answer, again today no answer. Plan: - Attempted to contact family multiple times today and yesterday to no avail, will try again this PM - Please page if son Srikanth comes to visit so consent can be obtained - Tentatively planned for PEG 02/14 - IV Metro - NPO at [place] - Hold chem DVT ppx Pt discussed with Dr. Cain. See his attestation for further recs/changes.
[2018-02-14] MEDS: Nystatin 100,000 Units/ml Oral Susp 5 ml UD PO SCH ×4 (10:47→21:50)
[2018-02-14] MEDS: Levothyroxine 100 mcg (0.1 mg) Inj IVP SCH (11:00)
[2018-02-14] MEDS: cefTRIAXone 2 GM in Sodium Chloride 0.9% 100 ML IVPB SCH (13:48)
[2018-02-14] MEDS: Potassium Chloride 20 MEQ in Dextrose 5%/0.9% NS 1,000 ML IV SCH ×2 (13:54→14:00)
[2018-02-14] MEDS ORDERED: Dextrose 50% SYRINGE Inj (50 ml) ONE (16:42)
--- NOTE | 2018-02-14 17:24 | CP.PCM.PN ---
Subjective - Date & Time of Evaluation Date of Evaluation: 02/14/18 Time of Evaluation: 15:00 - Subjective Subjective: the patient seen and examined Shortness of breath minimal exertion/movement Possible PEG insertion tomorrow Continue nebulizer treatment and steroids BiPAP as needed Objective - Vital Signs/Intake and Output Vital Signs (last 24 hours): Temp Pulse Resp BP Pulse Ox 97.3 F L 101 H 18 97/63 L 95 02/14/18 16:00 02/14/18 16:00 02/14/18 16:00 02/14/18 16:00 02/14/18 16:00 Intake and Output: 02/14/18 02/14/18 06:59 18:59 Intake Total 1130 Output Total 2 Balance 1128 - Medications Medications: Current Medications Acetaminophen (Tylenol 325mg Tab) 650 mg PO Q6 PRN PRN Reason: Pain, moderate (4-7) Albuterol/Ipratropium (Duoneb 3 Mg/0.5 Mg (3 Ml) Ud) 3 ml INH RQ6 [facility] Last Admin: 02/14/18 07:48 Dose: 3 ml Dextrose (Dextrose 50% Inj) 0 ml IV PRN PRN; Protocol PRN Reason: Hypoglycemia Protocol Last Admin: 02/14/18 08:20 Dose: 50 ml Diltiazem HCl (Cardizem) 30 mg PO Q8 [facility] Last Admin: 02/14/18 13:47 Dose: Not Given Ceftriaxone Sodium 2 gm/ (Sodium Chloride) 100 mls @ 100 mls/hr IVPB Q24H [facility] PRN Reason: Protocol Last Admin: 02/14/18 13:48 Dose: 100 mls/hr Metronidazole (Flagyl) 500 mg in 100 mls @ 100 mls/hr IVPB Q8H [facility] PRN Reason: Protocol Last Admin: 02/14/18 13:45 Dose: 100 mls/hr Potassium Chloride 20 meq/ (Dextrose/Sodium Chloride) 1,010 mls @ 75 mls/hr IV .[id number] [facility] Last Admin: 02/14/18 14:00 Dose: 75 mls/hr Levothyroxine Sodium (Synthroid) 50 mcg IVP DAILY [facility] Last Admin: 02/14/18 11:00 Dose: 50 mcg Lorazepam (Ativan) 0.5 mg PO BID [facility] Last Admin: 02/14/18 11:00 Dose: 0.5 mg Nystatin (Nystatin Oral Susp) 5 ml PO QID [facility] Last Admin: 02/14/18 13:49 Dose: Not Given Roflumilast (Daliresp) 500 mcg PO DAILY [facility] Last Admin: 02/14/18 11:00 Dose: 500 mcg Rosuvastatin Calcium (Crestor) 5 mg PO HS [facility] Last Admin: 02/13/18 22:12 Dose: Not Given Sucralfate (Carafate Oral Susp) 1 gm PO ACBHS [facility] Last Admin: 02/14/18 08:20 Dose: Not Given Vitamin A (Vitamin A & D Oint Ud Foilpak) 1 ea EXT Q8 PRN PRN Reason: Dry SKIN - Labs Labs: 02/14/18 06:22 02/14/18 06:22 PT 15.6 SECONDS (9.7-12.2) H 02/14/18 06:22 INR 1.4 02/14/18 06:22 APTT 34 SECONDS (21-34) 02/05/18 18:00 Assessment and Plan (1) COPD (chronic obstructive pulmonary disease) Status: Acute
--- NOTE | 2018-02-14 19:26 | PN ---
Copied To: Tru Vinson MD Attending MD: Tru Vinson MD DATE: 02/14/2018 SUBJECTIVE: The patient is confused to place. She denies any chest pain and does not appear to be in any respiratory distress. PHYSICAL EXAMINATION: VITAL SIGNS: Blood pressure 92/58, heart rate 88, temperature 97.3, and respirations 19. HEENT: Pale conjunctivae. CHEST: Bilateral rhonchi. HEART: S1 and S2 regular. ABDOMEN: Soft. EXTREMITIES: Significant muscle wasting. LABORATORY DATA: SMA-7: Sodium 128, potassium 2.8, chloride 104, CO2 of 17, glucose 68, BUN less than 2, and creatinine 0.4. Today's hemoglobin and hematocrit 7.9 and 22.3. White count and platelet count are within normal limit. Blood culture is negative after five days. ASSESSMENT: 1. Status post hypertension. 2. Multifocal atrial tachycardia. 3. Borderline troponin elevation, consider non-ST elevation myocardial infarction. 4. Chronic obstructive lung disease and secondary pulmonary hypertension. 5. Hypothyroidism. 6. Anemia. 7. Hypokalemia and hypomagnesemia. Today's magnesium reveals 1.2 and potassium revealed 2.8. RECOMMENDATIONS: Continue Rocephin 2 g intravenously daily, Flagyl 500 mg intravenously every 8 hours. Continue intravenous potassium chloride replacement of 20 mEq. Continue Synthroid 50 mcg intravenously daily. The patient did receive 4 g of intravenous magnesium sulfate replacement today. Followup BNP and magnesium level in the a.m. is recommended. Tru Vinson MD
--- NOTE | 2018-02-14 20:41 | CP.PCM.PN ---
Objective - Vital Signs/Intake and Output Vital Signs (last 24 hours): Temp Pulse Resp BP Pulse Ox 97.3 F L 101 H 18 97/63 L 95 02/14/18 16:00 02/14/18 16:00 02/14/18 16:00 02/14/18 16:00 02/14/18 16:00 - Medications Medications: Current Medications Acetaminophen (Tylenol 325mg Tab) 650 mg PO Q6 PRN PRN Reason: Pain, moderate (4-7) Albuterol/Ipratropium (Duoneb 3 Mg/0.5 Mg (3 Ml) Ud) 3 ml INH RQ6 [facility] Last Admin: 02/14/18 20:12 Dose: 3 ml Dextrose (Dextrose 50% Inj) 0 ml IV PRN PRN; Protocol PRN Reason: Hypoglycemia Protocol Last Admin: 02/14/18 08:20 Dose: 50 ml Diltiazem HCl (Cardizem) 30 mg PO Q8 [facility] Last Admin: 02/14/18 13:47 Dose: Not Given Ceftriaxone Sodium 2 gm/ (Sodium Chloride) 100 mls @ 100 mls/hr IVPB Q24H [facility] PRN Reason: Protocol Last Admin: 02/14/18 13:48 Dose: 100 mls/hr Metronidazole (Flagyl) 500 mg in 100 mls @ 100 mls/hr IVPB Q8H [facility] PRN Reason: Protocol Last Admin: 02/14/18 13:45 Dose: 100 mls/hr Potassium Chloride 20 meq/ (Dextrose/Sodium Chloride) 1,010 mls @ 75 mls/hr IV .[id number] [facility] Last Admin: 02/14/18 14:00 Dose: 75 mls/hr Levothyroxine Sodium (Synthroid) 50 mcg IVP DAILY [facility] Last Admin: 02/14/18 11:00 Dose: 50 mcg Lorazepam (Ativan) 0.5 mg PO BID [facility] Last Admin: 02/14/18 17:41 Dose: Not Given Nystatin (Nystatin Oral Susp) 5 ml PO QID [facility] Last Admin: 02/14/18 13:49 Dose: Not Given Roflumilast (Daliresp) 500 mcg PO DAILY [facility] Last Admin: 02/14/18 11:00 Dose: 500 mcg Rosuvastatin Calcium (Crestor) 5 mg PO HS [facility] Last Admin: 02/13/18 22:12 Dose: Not Given Sucralfate (Carafate Oral Susp) 1 gm PO ACBHS [facility] Last Admin: 02/14/18 08:20 Dose: Not Given Vitamin A (Vitamin A & D Oint Ud Foilpak) 1 ea EXT Q8 PRN PRN Reason: Dry SKIN - Labs Labs: 02/14/18 06:22 02/14/18 06:22 PT 15.6 SECONDS (9.7-12.2) H 02/14/18 06:22 INR 1.4 02/14/18 06:22 APTT 34 SECONDS (21-34) 02/05/18 18:00
[2018-02-15] MEDS: Albuterol-Ipratrop 3 mg / 0.5 (3 ml) UD INH SCH ×5 (01:30→19:11)
[2018-02-15] MEDS: Potassium Chloride 20 MEQ in Dextrose 5%/0.9% NS 1,000 ML IV SCH ×2 (02:58→16:26)
--- NOTE | 2018-02-15 05:03 | PN ---
Copied To: Lex Patel MD Attending MD: Lex Patel MD DATE: 02/14/2018 SUBJECTIVE: The patient is weak, tired, fatigued. She needs a PEG tube. We are waiting for [id number] to show up for a consent. In the meantime, she is hyponatremic, hypokalemic, hypochloremic with a low bicarb. No fever. No chills. Positive dyspnea on exertion. Positive cough. Positive wheezing. PHYSICAL EXAMINATION: VITAL SIGNS: BP 97/63, pulse 101, respiratory rate 18, temperature 97.3. LUNGS: Bilateral inspiratory and expiratory rhonchi. Decreased air entry. CARDIOVASCULAR SYSTEM: S1 and S2 regular, tachycardiac. ABDOMEN: Soft. Nontender. Bowel sounds are positive. ASSESSMENT: 1. Septicemia with septic shock due to urinary tract infection. 2. Hypothyroidism. 3. Chronic obstructive pulmonary disease. 4. Hypertension. PLAN: Continue current medication. Waiting for a consent for a PEG placement. The patient's condition is guarded. In the meantime, we will correct potassium and sodium. Lex Patel MD
[2018-02-15] MEDS: metroNIDAZOLE IV 500 mg/100 ml 500 MG/100 ML BAG IVPB SCH ×3 (05:58→21:42)
[2018-02-15] MEDS: Sucralfate 1 gm/10 ml Oral Susp UD PO SCH ×2 (08:35→21:42)
[2018-02-15 09:07] LABS: BLOOD UREA NITROGEN < 2 mg/dL (7-17); CALCIUM 7.9 mg/dl (8.6-10.4); GFR NON-AFRICAN AMERICAN > 60
[2018-02-15] MEDS ORDERED: Lactated Ringer's 500 ML IV ONE ×2 (09:11)
[2018-02-15] MEDS ORDERED: Midazolam 2 MG/2 ML VIAL ONE (09:16)
[2018-02-15] MEDS ORDERED: Flumazenil 0.1 mg/ml Inj (5ml) IVP ONE (09:29)
[2018-02-15] MEDS: Levothyroxine 100 mcg (0.1 mg) Inj IVP SCH (12:00)
[2018-02-15] MEDS: Nystatin 100,000 Units/ml Oral Susp 5 ml UD PO SCH ×4 (12:20→21:42)
[2018-02-15] MEDS: Dextrose 50% SYRINGE Inj (50 ml) IV PRN ×2 (12:21→23:54)
[2018-02-15] MEDS: cefTRIAXone 2 GM in Sodium Chloride 0.9% 100 ML IVPB SCH (13:00)
--- NOTE | 2018-02-15 20:27 | PN ---
Copied To: Tru Vinson MD Attending MD: Tru Vinson MD DATE: 02/15/2018 SUBJECTIVE: The patient is oriented to place, and she denies any chest pain. PHYSICAL EXAMINATION: VITAL SIGNS: Blood pressure 100/73, heart rate 95, temperature 97.8, respirations 29. HEENT: Pale conjunctivae. CHEST: Bilateral rhonchi. HEART: S1 and S2 are regular. EXTREMITIES: No edema. LABORATORY DATA: Today's SMA-7, sodium 133, potassium 3.6, chloride 107, CO2 of 16, glucose 78, BUN less than 2, and creatinine 0.5. ASSESSMENT: 1. Multifocal atrial tachycardia. 2. Chronic obstructive lung disease. 3. Improved hypokalemia and hypomagnesemia. 4. Hypothyroidism. RECOMMENDATIONS: Continue IV Rocephin at 2 g daily. Continue IV Flagyl 500 mg intravenously every 8 hours. Continue Synthroid 50 mcg intravenously daily. Tru Vinson MD
[2018-02-16] MEDS: Albuterol-Ipratrop 3 mg / 0.5 (3 ml) UD INH SCH ×4 (01:39→19:25)
[2018-02-16] MEDS: Potassium Chloride 20 MEQ in Dextrose 5%/0.9% NS 1,000 ML IV SCH ×3 (03:36→19:22)
[2018-02-16] MEDS: Dextrose 50% SYRINGE Inj (50 ml) IV PRN ×3 (04:16→12:01)
[2018-02-16] MEDS: metroNIDAZOLE IV 500 mg/100 ml 500 MG/100 ML BAG IVPB SCH ×3 (04:59→21:30)
[2018-02-16 07:31] LABS: BLOOD UREA NITROGEN 2 mg/dL (7-17); CALCIUM 7.6 mg/dl (8.6-10.4); GFR NON-AFRICAN AMERICAN > 60
[2018-02-16 07:35] LABS: BASO % 0.3 % (0.0-2.0); EOS # 0.1 K/uL (0.0-0.7); EOS % 0.4 % (0.0-4.0); HEMOGLOBIN 8.3 g/dL (11.0-16.0); LYMPH # 0.2 K/uL (1.0-4.3); LYMPH % 1.7 % (20.0-40.0); MEAN CORPUSCULAR HEMOGLOBIN 31.2 pg (27.0-31.0); MONO # 0.3 K/uL (0.0-0.8); MONO % 2.1 % (0.0-10.0); NEUT # 11.9 K/uL (1.8-7.0); NEUT % 95.5 % (50.0-75.0); NRBC % 0.1 % (0.0-2.0); PLATELET COUNT 152 K/uL (130-400); RBC 2.64 Mil/uL (3.80-5.20); RED CELL DISTRIBUTION WIDTH 19.1 % (11.5-14.5); WHITE BLOOD COUNT 12.5 K/uL (4.8-10.8)
[2018-02-16 07:58] LABS: MEAN CELL VOLUME 89.3 fL (81.0-99.0)
[2018-02-16] MEDS: Sucralfate 1 gm/10 ml Oral Susp UD PO SCH ×2 (08:35→21:34)
[2018-02-16] MEDS: Nystatin 100,000 Units/ml Oral Susp 5 ml UD PO SCH ×4 (09:08→21:34)
[2018-02-16] MEDS: Levothyroxine 100 mcg (0.1 mg) Inj IVP SCH (09:12)
[2018-02-16 09:19] LABS: ANISOCYTOSIS SLIGHT; BURR CELLS MODERATE; HYPOCHROMIC SLIGHT; LYMPHOCYTE 1 % (20-40); MONOCYTE 2 % (0-10); NEUTROPHIL 97 % (50-75); NUCLEATED RED BLOOD CELL 1 % (0-0); OVALOCYTES SLIGHT; PLATELET ESTIMATE NORMAL (NORMAL); POIKILOCYTOSIS SLIGHT; TOTAL CELLS COUNTED 100
[2018-02-16 09:20] LABS: LARGE PLATELETS PRESENT
--- NOTE | 2018-02-16 13:55 | PN ---
Copied To: Tru Vinson MD Attending MD: Tru Vinson MD DATE: 02/16/2018 SUBJECTIVE: The patient underwent gastrostomy feeding tube placement. She is currently oriented to place, mildly short of breath and denied any chest pain. PHYSICAL EXAMINATION: VITAL SIGNS: Blood pressure 95/58, heart rate 59, temperature 97.5, respiration 20. HEENT: Pale conjunctive. CHEST: Diffuse bilateral rhonchi. HEART: S1 and S2 regular. EXTREMITIES: Significant muscle wasting. LABORATORY DATA: Hemoglobin and hematocrit 8.2 and 23.6, white count 12.5, platelet count 252,000. SMA-7; sodium 139, potassium 3.2, chloride 108, CO2 of 18, glucose 153, BUN 2, creatinine 0.4. Calcium is 7.6. ASSESSMENT: 1. Status post gastrostomy feeding tube placement. 2. Hypokalemia and hypocalcemia. 3. Multifocal atrial tachycardia. 4. Chronic obstructive lung disease. 5. Anemia. 6. Hypothyroidism. RECOMMENDATION: Continue mg every 8 hours, IV Rocephin at 2 g daily, Crestor 5 mg once a day, hours, intervenous potassium chloride replacement of total 40 mEq will be given today, continue Synthroid at 50 mcg intravenously daily. Obtain 12-lead EKG. Tru Vinson MD
--- NOTE | 2018-02-16 14:29 | CP.PCM.PN ---
Subjective - Date & Time of Evaluation Date of Evaluation: 02/16/18 Time of Evaluation: 11:15 - Subjective Subjective: Patient seen and examined today, awake, alert, oriented to person , comfortable , NAD, denies any abdominal pain , N/V a febrile s/p peg tube insertion and feeding started last night and tolerating today labs reviewed - leukocytosis improving , hypokalemia noted and K replaced hgb- stable Objective - Vital Signs/Intake and Output Vital Signs (last 24 hours): Temp Pulse Resp BP Pulse Ox 97.5 F L 60 20 95/58 L 97 02/16/18 08:12 02/16/18 12:49 02/16/18 08:12 02/16/18 08:12 02/16/18 12:49 Intake and Output: 02/16/18 02/16/18 06:59 18:59 Intake Total 1780 Output Total 2 Balance 1778 - Medications Medications: Current Medications Acetaminophen (Tylenol 325mg Tab) 650 mg PO Q6 PRN PRN Reason: Pain, moderate (4-7) Albuterol/Ipratropium (Duoneb 3 Mg/0.5 Mg (3 Ml) Ud) 3 ml INH RQ6 [facility] Last Admin: 02/16/18 13:37 Dose: Not Given Dextrose (Dextrose 50% Inj) 0 ml IV PRN PRN; Protocol PRN Reason: Hypoglycemia Protocol Last Admin: 02/16/18 12:01 Dose: 50 ml Diltiazem HCl (Cardizem) 30 mg PO Q8 [facility] Last Admin: 02/16/18 13:15 Dose: 30 mg Ceftriaxone Sodium 2 gm/ (Sodium Chloride) 100 mls @ 100 mls/hr IVPB Q24H [facility] PRN Reason: Protocol Last Admin: 02/15/18 13:00 Dose: 100 mls/hr Metronidazole (Flagyl) 500 mg in 100 mls @ 100 mls/hr IVPB Q8H [facility] PRN Reason: Protocol Last Admin: 02/16/18 04:59 Dose: 100 mls/hr Potassium Chloride 20 meq/ (Dextrose/Sodium Chloride) 1,010 mls @ 75 mls/hr IV .[id number] [facility] Last Admin: 02/16/18 04:59 Dose: Not Given Levothyroxine Sodium (Synthroid) 50 mcg IVP DAILY [facility] Last Admin: 02/16/18 09:12 Dose: 50 mcg Lorazepam (Ativan) 0.5 mg PO BID [facility] Last Admin: 02/16/18 09:08 Dose: 0.5 mg Nystatin (Nystatin Oral Susp) 5 ml PO QID [facility] Last Admin: 02/16/18 13:13 Dose: 5 ml Roflumilast (Daliresp) 500 mcg PO DAILY [facility] Last Admin: 02/16/18 09:11 Dose: 500 mcg Rosuvastatin Calcium (Crestor) 5 mg PO HS [facility] Last Admin: 02/15/18 21:42 Dose: 5 mg Sucralfate (Carafate Oral Susp) 1 gm PO ACBHS [facility] Last Admin: 02/16/18 08:35 Dose: 1 gm Vitamin A (Vitamin A & D Oint Ud Foilpak) 1 ea EXT Q8 PRN PRN Reason: Dry SKIN - Labs Labs: 02/16/18 06:48 02/16/18 06:48 PT 15.6 SECONDS (9.7-12.2) H 02/14/18 06:22 INR 1.4 02/14/18 06:22 APTT 34 SECONDS (21-34) 02/05/18 18:00 - Constitutional Appears: Non-toxic, No Acute Distress, Chronically Ill - Respiratory Exam Respiratory Exam: Decreased Breath Sounds, Rhonchi, NORMAL BREATHING PATTERN - Cardiovascular Exam Cardiovascular Exam: Tachycardia, +S1, +S2 - GI/Abdominal Exam GI & Abdominal Exam: Soft (peg tube in place ) - Neurological Exam Neurological Exam: Alert, Awake Assessment and Plan - Assessment and Plan (Free Text) Assessment: A/P 82 yr old female with with pmhx of with history of COPD, HTN, heart failure, PVD, heart failure who was sent in from the correction for hypoxia, leukocytosis hypernatremia, and hypokalemia and admitted to ICU for Respiratory Failure,Hypotension,tachycardia,Dehydration,CHF pneumonia/UTI. After stabilized patient in ICU transferred to regular floor electrolytes are significantly improved patient underwent peg tube insertion yesterday and tolerating feeding tube D/W Dr. Patel, cleared for discharge to [facility] today and Dr. Patel will follow the patient at [facility] will repeat labs at [facility] Patient is DNR/DNI per [facility]
[2018-02-16] MEDS: cefTRIAXone 2 GM in Sodium Chloride 0.9% 100 ML IVPB SCH (14:50)
[2018-02-16 16:20] VITALS: BP 96/59; PULSE 109; RESP 21; TEMP 97.7; O2SAT 94
--- NOTE | 2018-02-17 00:49 | CP.PCM.DIS ---
Provider - Provider Date of Admission: 02/05/18 19:56 Attending physician: Lex Patel MD Time Spent in preparation of Discharge (in minutes): 25 Hospital Course - Lab Results Lab Results: Micro Results 02/05/18 17:30 Blood Blood Culture - Final NO GROWTH AFTER 5 DAYS 02/05/18 17:30 Blood Gram Stain - Final TEST NOT PERFORMED 02/05/18 18:00 Blood Blood Culture - Final NO GROWTH AFTER 5 DAYS 02/05/18 18:00 Blood Gram Stain - Final TEST NOT PERFORMED 02/09/18 06:43 Naris MRSA Culture - Final 02/07/18 18:26 Urine,Ramos Urine Culture - Final No Growth (<1,000 CFU/ML) 02/06/18 14:05 Nose MRSA Culture (Admit) - Final MRSA DETECTED 02/05/18 18:51 Urine,Ramos Urine Culture - Final 50-100,000 CFU/ML. MULTIPLE SPECIES. SUGGEST REPEAT SPECIMEN. Most Recent Lab Values WBC 12.5 K/uL (4.8-10.8) H 02/16/18 06:48 RBC 2.64 Mil/uL (3.80-5.20) L 02/16/18 06:48 Hgb 8.3 g/dL (11.0-16.0) L 02/16/18 06:48 Hct 23.6 % (34.0-47.0) L 02/16/18 06:48 MCV 89.3 fL (81.0-99.0) D 02/16/18 06:48 MCH 31.2 pg (27.0-31.0) H 02/16/18 06:48 MCHC 35.0 g/dL (33.0-37.0) 02/16/18 06:48 RDW 19.1 % (11.5-14.5) H 02/16/18 06:48 Plt Count 152 K/uL (130-400) 02/16/18 06:48 MPV 10.0 fL (7.2-11.7) 02/16/18 06:48 Neut % (Auto) 95.5 % (50.0-75.0) H 02/16/18 06:48 Lymph % (Auto) 1.7 % (20.0-40.0) L 02/16/18 06:48 [place] % (Auto) 2.1 % (0.0-10.0) 02/16/18 06:48 Eos % (Auto) 0.4 % (0.0-4.0) 02/16/18 06:48 Baso % (Auto) 0.3 % (0.0-2.0) 02/16/18 06:48 Neut # (Auto) 11.9 K/uL (1.8-7.0) H 02/16/18 06:48 Lymph # (Auto) 0.2 K/uL (1.0-4.3) L 02/16/18 06:48 [place] # (Auto) 0.3 K/uL (0.0-0.8) 02/16/18 06:48 Eos # (Auto) 0.1 K/uL (0.0-0.7) 02/16/18 06:48 Baso # (Auto) 0.0 K/uL (0.0-0.2) 02/16/18 06:48 Neutrophils % (Manual) 97 % (50-75) H 02/16/18 06:48 Band Neutrophils % 1 % (0-2) 02/12/18 11:23 Lymphocytes % (Manual) 1 % (20-40) L 02/16/18 06:48 Monocytes % (Manual) 2 % (0-10) 02/16/18 06:48 Eosinophils % (Manual) 1 % (0-4) 02/14/18 06:22 Basophils % (Manual) 1 % (0-2) 02/06/18 04:34 Nucleated RBC % 1 % (0-0) H 02/16/18 06:48 Platelet Estimate Normal (NORMAL) 02/16/18 06:48 Large Platelets Present 02/16/18 06:48 Giant Platelets Present 02/05/18 18:00 Polychromasia Slight 02/10/18 08:11 Hypochromasia (manual) Slight 02/16/18 06:48 Poikilocytosis (manual Slight 02/16/18 06:48 Anisocytosis (manual) Slight 02/16/18 06:48 Microcytosis (manual) Slight 02/07/18 04:43 Target Cells Slight 02/05/18 18:00 Ovalocytes Slight 02/16/18 06:48 Tarah Cells Moderate 02/16/18 06:48 Acanthocytes (Spur) Slight 02/07/18 04:43 Schistocytes Slight 02/09/18 14:15 PT 15.6 SECONDS (9.7-12.2) H 02/14/18 06:22 INR 1.4 02/14/18 06:22 APTT 34 SECONDS (21-34) 02/05/18 18:00 Puncture Site Rb 02/07/18 05:00 pCO2 22 mm/Hg (35-45) L 02/07/18 05:00 pO2 111 mm/Hg (80-100) H 02/07/18 05:00 HCO3 19.8 mmol/L (21-28) L 02/07/18 05:00 ABG pH 7.45 (7.35-7.45) 02/07/18 05:00 ABG Total CO2 16.0 mmol/L (22-28) L 02/07/18 05:00 ABG O2 Saturation 99.6 % (95-98) H 02/07/18 05:00 ABG Base Excess -6.6 mmol/L (-2.0-3.0) L 02/07/18 05:00 Jason Test Na 02/07/18 05:00 ABG Potassium 3.0 mmol/L (3.6-5.2) L 02/07/18 05:00 VBG pH 7.35 (7.32-7.43) 02/06/18 03:12 VBG pCO2 33 mmHg (40-60) L 02/06/18 03:12 VBG HCO3 18.5 mmol/L 02/06/18 03:12 VBG Total CO2 19.2 mmol/L (22-28) L 02/06/18 03:12 VBG O2 Sat (Calc) 51.0 % (40-65) 02/06/18 03:12 VBG Base Excess -6.4 mmol/L (0.0-2.0) L 02/06/18 03:12 VBG Potassium 2.7 mmol/L (3.6-5.2) L 02/06/18 03:12 A-a O2 Difference 58.0 mm/Hg 02/06/18 09:35 Respiratory Index 0.5 02/06/18 09:35 Sodium 151.0 mmol/l (132-148) H 02/07/18 05:00 Chloride 125.0 mmol/L (98-107) H 02/07/18 05:00 Glucose 137 mg/dl (65-105) H 02/07/18 05:00 Lactate 3.3 mmol/L (0.7-2.1) H 02/07/18 05:00 Liter Flow 2.0 02/07/18 05:00 FiO2 28.0 % 02/06/18 09:35 Crit Value Called To Dr patel 02/06/18 09:35 Crit Value Called By [facility] 02/06/18 09:35 Crit Value Read Back Y 02/06/18 09:35 Blood Gas Notified Time 939 02/06/18 09:35 Sodium 139 mmol/L (132-148) 02/16/18 06:48 Potassium 3.2 mmol/L (3.6-5.2) L 02/16/18 06:48 Chloride 108 mmol/L (98-107) H 02/16/18 06:48 Carbon Dioxide 18 mmol/L (22-30) L 02/16/18 06:48 Anion Gap 16 (10-20) 02/16/18 06:48 BUN 2 mg/dL (7-17) L 02/16/18 06:48 Creatinine 0.4 mg/dL (0.7-1.2) L 02/16/18 06:48 Est GFR ( Amer) > 60 02/16/18 06:48 Est GFR (Non-Af Amer) > 60 02/16/18 06:48 POC Glucose (mg/dL) 70 mg/dL (65-110) 02/16/18 17:05 Random Glucose 153 mg/dL (65-105) H 02/16/18 06:48 Lactic Acid 3.9 mmol/L (0.7-2.1) H 02/07/18 04:43 Calcium 7.6 mg/dl (8.6-10.4) L 02/16/18 06:48 Phosphorus 1.3 mg/dL (2.5-4.5) L 02/07/18 04:43 Magnesium 2.0 mg/dL (1.6-2.3) 02/15/18 08:21 Total Bilirubin 0.2 mg/dL (0.2-1.3) 02/07/18 04:43 AST 18 U/L (14-36) 02/07/18 04:43 ALT 26 U/L (9-52) 02/07/18 04:43 Alkaline Phosphatase 88 U/L (38-126) 02/07/18 04:43 Troponin I 0.3210 ng/mL (0.00-0.120) H* 02/06/18 04:34 NT-Pro-B Natriuret Pep 1450 pg/mL (0-900) H 02/06/18 04:34 Total Protein 4.7 g/dL (6.3-8.3) L 02/07/18 04:43 Albumin 2.3 g/dL (3.5-5.0) L 02/07/18 04:43 Globulin 2.4 gm/dL (2.2-3.9) 02/07/18 04:43 Albumin/Globulin Ratio 0.9 (1.0-2.1) L 02/07/18 04:43 TSH 3rd Generation 134.00 mIU/L (0.46-4.68) H 02/06/18 04:34 Arterial Blood Potassium 3.0 mmol/L (3.6-5.2) L 02/07/18 05:00 Venous Blood Potassium 2.7 mmol/L (3.6-5.2) L 02/06/18 03:12 Urine Color Tonia (YELLOW) 02/05/18 18:51 Urine Clarity Hazy (Clear) 02/05/18 18:51 Urine pH 5.0 (5.0-8.0) 02/05/18 18:51 Ur Specific [place] 1.025 (1.003-1.030) 02/05/18 18:51 Urine Protein 2+ mg/dL (NEGATIVE) H 02/05/18 18:51 Urine Glucose (UA) Normal mg/dL (Normal) 02/05/18 18:51 Urine Ketones Trace mg/dL (NEGATIVE) 02/05/18 18:51 Urine Blood 1+ (NEGATIVE) H 02/05/18 18:51 Urine Nitrate Negative (NEGATIVE) 02/05/18 18:51 Urine Bilirubin Negative (NEGATIVE) 02/05/18 18:51 Urine Urobilinogen 2.0 mg/dL (0.2-1.0) H 02/05/18 18:51 Ur Leukocyte Esterase 3+ Ashley/uL (Negative) H 02/05/18 18:51 Urine WBC (Auto) 112 /hpf (0-5) H 02/05/18 18:51 Urine RBC (Auto) 18 /hpf (0-3) H 02/05/18 18:51 Urine WBC Clumps (Auto) Few /hpf (NONE) H 02/05/18 18:51 Ur Squamous Epith Cells 2 /hpf (0-5) 02/05/18 18:51 Ur Transition Epith Cell 1 /hpf (0-3) 02/05/18 18:51 Urine Bacteria Mod (<OCC) H 02/05/18 18:51 Hyaline Casts >20 /lpf (0-2) H 02/05/18 18:51 Urine Yeast (Budding) Mod /hpf (NEGATIVE) H 02/05/18 18:51 Discharge Exam - Head Exam Head Exam: ATRAUMATIC, NORMAL INSPECTION Discharge Plan - Discharge Medications Prescriptions: Potassium Chloride [Potassium Chloride Oral Soln] 20 meq PO DAILY #2 udc Levothyroxine [Synthroid] 50 mcg PO DAILY #1 tab Acetaminophen [Tylenol 650mg/20.3ml solution UD] 650 mg PO Q6 #10 udc - Follow Up Plan Condition: SERIOUS Disposition: REHAB FACILITY/REHAB UNIT Instructions: Enteral Feeding, How to Care for Your PEG Tube , Urinary Tract Infection in Women (DC), Urinary Tract Infection in Men (DC), Dysuria (GEN) Additional Instructions: Please call DR. Patel upon patient arrival tot facility continue Jevity1.5 30ml/hr goal 40 ml/hr flush G tube with 150 ml water q 6hrs Please repeat cbc, bmp Monday and q weekly Continue medication as per med rec. Oxygen via nasal canula keep spo2>94 Please continue KCL for 1 week and if K - is above 4.5 continue with 2 / week kep midline in place for 1 week then discontinue
--- NOTE | 2018-02-17 04:37 | PN ---
Copied To: Sarah Sanders MD Attending MD: Sarah Sanders MD DATE: 02/16/2018 LOCATION: 355, bed A. SUBJECTIVE: This is an 82-year-old female seen and examined in rounds today post PEG insertion, appeared to be somewhat alert, awake , comfortable in bed, oriented to person with period of mild semi-confusion and agitation, tolerating PEG feeding well. The entire chart is reviewed including but not limited to the most recent lab and radiology study results, current and the previous medication list, current and previous medical events. Case discussed with the staff at length. Today's lab showed leukocytosis of 12.5, hemoglobin 8.3, hematocrit 23.6. Potassium 3.2 ,for which potassium supplement was given with CO2 content of 18 indicative of metabolic acidosis with blood glucose level, the latest is 70 and calcium of 7.6 with low albumin and low total protein. PHYSICAL EXAMINATION: GENERAL: An 82-year-old female. VITAL SIGNS: Afebrile with pulse of 100, respiratory rate 20 to 22, blood pressure of 104/62, the patient is in a status of DNR/DNI. HEENT: Showed dry, pale oral mucous membrane. Nonicteric sclerae. LUNGS: Few scattered crepitation. Decreased air entry at bases. HEART: Positive S1 and S2 with increased rate. ABDOMEN: Soft with slight distention. PEG tube is in place. No mass or organomegaly. No rebound tenderness or guarding. EXTREMITIES: With evidence of muscle wasting syndrome. IMPRESSION: 1. Failure to thrive. 2. Status post percutaneous endoscopic gastrostomy tube insertion, functioning well so far. 3. Multifocal atrial tachycardia. 4. Electrolyte imbalance with hypocalcemia, hypokalemia, on potassium supplement. 5. Known history of hypothyroidism, chronic obstructive pulmonary disorder. 6. Anemia most likely secondary to chronic disease. No evidence of active bleeding. SUGGESTIONS: 1. Continue current management. 2. Subsequent increase of the rate of feeding. 3. Further recommendation to follow. Sarah Sanders MD
--- NOTE | 2018-02-17 07:45 | DS ---
Copied To: Lex Patel MD Attending MD: Lex Patel MD ADMISSION DIAGNOSIS: Sepsis. DISCHARGE DIAGNOSES: Sepsis with septic shock, urinary tract infection, chronic obstructive pulmonary disease, hypertension, hypothyroidism. HISTORY OF PRESENT ILLNESS: This is an elderly -Citizen Of [place] female with history of multiple medical problems, chronic history of multiple hospitalizations and was admitted with shock. She was recently treated with IV fluids, antibiotics, morgan culture, ID evaluation and the patient improved, she felt better. She has been discharged with outpatient followup. PHYSICAL EXAMINATION: LUNGS: Decreased air entry. Bilateral rhonchi. CVS: S1, S2 regular, tachycardic. ABDOMEN: Soft. PLAN: The patient was discharged. She will be followed up as outpatient. Lex Patel MD
== END 2018-02-16 22:45 | DRG 871 ==
LOC: C.ER 17:12 → C.9E 19:56 → C.9I 02-06 10:10 → C.3T 02-09 04:22
PROVIDERS: ADMIT Internal Medicine; ATTEND Internal Medicine
PROC: 5A09457 Assistance with Respiratory Ventilation, 24-96 Consecutive Hours, Continuous Positive Airway Pressure (ICD-10-PCS; 2018-02-05)
PROC: 3E0G76Z Introduction of Nutritional Substance into Upper GI, Via Natural or Artificial Opening (ICD-10-PCS; 2018-02-15)
PROC: 0DH63UZ Insertion of Feeding Device into Stomach, Percutaneous Approach (ICD-10-PCS; principal; 2018-02-15 09:27)
DX: A41.9 Sepsis, unspecified organism (principal); R65.21 Severe sepsis with septic shock; J96.91 Respiratory failure, unspecified with hypoxia; N39.0 Urinary tract infection, site not specified; J44.1 Chronic obstructive pulmonary disease with (acute) exacerbation; I47.1 Supraventricular tachycardia; E87.0 Hyperosmolality and hypernatremia; E87.2 Acidosis; E03.9 Hypothyroidism, unspecified; Z95.5 Presence of coronary angioplasty implant and graft; Z87.891 Personal history of nicotine dependence; Z86.19 Personal history of other infectious and parasitic diseases; Z85.43 Personal history of malignant neoplasm of ovary; Z66 Do not resuscitate; R62.7 Adult failure to thrive; I73.9 Peripheral vascular disease, unspecified; I50.9 Heart failure, unspecified; D63.8 Anemia in other chronic diseases classified elsewhere; E16.2 Hypoglycemia, unspecified; E83.42 Hypomagnesemia; E83.51 Hypocalcemia; E87.6 Hypokalemia; E87.8 Other disorders of electrolyte and fluid balance, not elsewhere classified; F03.90 Unspecified dementia, unspecified severity, without behavioral disturbance, psychotic disturbance, mood disturbance, and anxiety; I11.0 Hypertensive heart disease with heart failure; I25.2 Old myocardial infarction; I27.29 Other secondary pulmonary hypertension; I48.91 Unspecified atrial fibrillation; E86.0 Dehydration; R13.10 Dysphagia, unspecified; K44.9 Diaphragmatic hernia without obstruction or gangrene